=== PATIENT | female | born 1945 | race Caucasian/White ===

== ENCOUNTER → 2017-10-21 | Outpatient (CLI) | payer OTHER, MEDICARE ==
[~2017-10-21] MED LIST: AMLO-114 PO; ASPI1TAB83 PO; DICL50TA3 PO; FURO40TA3 PO; HYDR12.55 PO; IBUP-1050 PO; LISI40TA PO; MULTTAB58 PO; RANI150T85 PO; SIMV40TA2 PO; ULT50 PO; ZNF/4 PO
--- NOTE | 2017-10-28 15:13 | MAMMOGRAPHY REPORT ---
BILATERAL DIGITAL SCREENING MAMMOGRAM TOMOSYNTHESIS WITH CAD: 10/21/2017 CLINICAL HISTORY: Routine screening. Patient has no complaints. TECHNIQUE: Breast tomosynthesis in addition to standard 2D mammography was performed. Current study was also evaluated with a Computer Aided Detection (CAD) system. COMPARISON: Comparison is made to exam dated: 03/15/2012 mammogram - [facility]. BREAST COMPOSITION: There are scattered areas of fibroglandular density in both breasts. FINDINGS: There are grouped calcifications within the left upper outer quadrant, as well as a small c luster of calcifications within the right upper outer quadrant, for which spot magnification views ar e recommended for further evaluation. There is an oval 8 mm mass within the right upper outer quadra nt middle depth, which may represent a cyst although targeted ultrasound and possible spot compressio n tomosynthesis views are recommended for further evaluation. The remainder of both breasts are stable compared to prior exams, without suspicious masses, calcific ations, or areas of architectural distortion noted. Other bilateral nodularity is not significantly changed. Other scattered bilateral benign-appearing calcifications are noted. IMPRESSION: ACR BI-RADS CATEGORY 0: INCOMPLETE EVALUATION: NEED ADDITIONAL IMAGING EVALUATION Bilateral calcifications and right breast mass, for which additional imaging evaluation is recommende d. The patient will be called to schedule an appointment. Approximately 10% of breast cancers are not detected with mammography. A negative mammographic report should not delay biopsy if a clinically suggestive mass is present. Julia Blackman M.D. ah/:10/28/2017 08:00:07 Storeperson: Shaneka MUNOZ)(Nathanael), [facility] letter sent: Addl Imaging 0 BI-RADS Code: ACR BI-RADS Category 0: Incomplete Evaluation: Need Additional Imaging Evaluation
== END | disposition home or self-care (01) ==
LOC: C.MAMM 10:43
PROVIDERS: ATTEND Family Medicine
DX: Z12.31 Encounter for screening mammogram for malignant neoplasm of breast (principal); R92.1 Mammographic calcification found on diagnostic imaging of breast

== ENCOUNTER → 2018-01-03 | Outpatient (CLI) | payer OTHER, MEDICARE ==
[~2018-01-03] MED LIST changes: -AMLO-114 PO; +AMLO10TA3 PO; +CALC500C70 PO; +CRAN405C3 PO; -DICL50TA3 PO; -HYDR12.55 PO; +LEVE250T PO; +METO25TA56 PO; +TYLER650 PO; +VLT/50 PO; +VNTHFA/IN INH
[2018-01-03 12:56] LABS: BASO % 0.1 %; BASO ABS # 0.01 K/uL (0-0.2); EOS % 1.1 %; EOS ABS # 0.08 K/uL (0-0.5); HEMOGLOBIN 13.7 g/dL (12.0-16.0); IG# 0.01 K/uL (0.00-0.02); LYMPH % 32.2 %; LYMPH ABS # 2.39 K/uL (1.2-3.4); MEAN CELL VOLUME 97.1 fL (80-100); MEAN CORPUSCULAR HEMOGLOBIN 30.9 pg (25-34); MEAN CORPUSCULAR HGB CONC 31.9 g/dl (32-36); MEAN PLATELET VOLUME 11.5 fL (7.4-10.4); MONO % 6.3 %; MONO ABS # 0.47 K/uL (0.11-0.59); NEUT % 60.2 %; NEUT ABS # 4.47 K/uL (1.4-6.5); PLATELET COUNT 139 K/uL (130-400); RED CELL DISTRIBUTION WIDTH CV 13.5 % (11.5-14.5); WHITE BLOOD COUNT 7.43 K/uL (4.8-10.8)
[2018-01-03 14:21] LABS: ALBUMIN 3.4 gm/dl (3.4-5.0); ALKALINE PHOSPHATASE 84 U/L (45-117); ALT/SGPT 24 U/L (12-78); AST/SGOT 13 U/L (15-37); BLOOD UREA NITROGEN 38 mg/dl (7-18); CALCIUM 8.8 mg/dl (8.5-10.1); CARBON DIOXIDE 27 mmol/L (21-32); CREATININE 1.14 mg/dl (0.60-1.20); GLUCOSE 89 mg/dl (70-99); POTASSIUM 4.3 mmol/L (3.5-5.1); SODIUM 145 mmol/L (136-145); TOTAL PROTEIN 6.5 gm/dl (6.4-8.2)
== END | disposition home or self-care (01) ==
LOC: C.CPL 11:14
PROVIDERS: ATTEND Surgery
DX: Z01.810 Encounter for preprocedural cardiovascular examination (principal); Z01.812 Encounter for preprocedural laboratory examination

== ENCOUNTER 2018-10-06 14:11 | Inpatient (IN) ==
--- NOTE | 2018-10-06 16:57 | Emergency Department Note ---
History of Present Illness General Chief complaint: Leg Injury/Pain Stated complaint: LEG PAIN,RED AND SWELLING Time Seen by Provider: 10/06/18 15:50 History of Present Illness Maximum Pain Intensity: 5 Patient is a 73-year-old female who presents the emergency department accompanied by her daughter for evaluation of left lower extremity pain, redness and some started 2 days ago. Patient states that she woke up with pain, redness and swelling in her medial left calf on Tuesday morning. It has progressively gotten more painful, red and swollen over the next 2 days. She is able to bear weight with her walker, but it is uncomfortable. Pain gets worse as the day goes on. She has tried to elevate the leg and take Tylenol for pain. She rates her discomfort a 5/10. She denies any fever, chills, nausea, vomiting or malaise. Patient states that she developed a blister on the medial left lower leg this afternoon, and several have popped up on the anterior bridges as well. She try to call her primary care provider but she was referred to the emergency department for work-up. She denies a prior history of skin infections, abscess or cellulitis. She does have a history of a right lower extremity DVT, when she was in a cast being treated for an ankle fracture. She does have some chronic lower extremity edema, right worse than left. She does also report that her legs are "numb" from the knees down secondary to spinal stenosis and her spinal surgery. She is not aware of any injury to the left leg. Home Medications Home Medications Medication Instructions Recorded Confirmed Type aspirin [Aspir-81] 81 mg PO QAM #0 02/14/14 10/06/18 History lisinopril 40 mg PO QAM #0 tab 02/14/14 10/06/18 History multivitamin 1 cap PO QAM #0 tab 02/14/14 10/06/18 History ranitidine HCl 150 mg PO QAM #0 tab 02/14/14 10/06/18 History simvastatin 40 mg PO HS #0 tab 02/14/14 10/06/18 History tizanidine 4 mg PO HS #0 02/14/14 10/06/18 History tramadol 50 mg PO Q6H PRN #0 02/14/14 10/06/18 History albuterol sulfate 2 puffs INHALATION Q6H PRN #1 12/28/17 10/06/18 History inhaler calcium carbonate-vitamin D3 1 tab PO BID #0 tab 12/28/17 10/06/18 History [Calcium 500 + D] diclofenac sodium 75 mg PO BID #0 tab 12/28/17 10/06/18 History metoprolol tartrate 25 mg PO BID #0 tab 12/28/17 10/06/18 History furosemide 40 mg tablet 40 mg PO QAM #0 tab 04/17/18 10/06/18 History acetaminophen [Tylenol Arthritis 650 mg PO Q4H 10/06/18 10/06/18 History Pain] Allergies Allergy/AdvReac Type Severity Reaction Status Date / Time cephalexin Allergy Unknown HIVES Verified 10/06/18 16:18 strawberry Allergy Unknown hives Verified 10/06/18 16:18 Unclassified Drugs Allergy Unknown DIAL SOAP Uncoded 10/06/18 16:18 - RASH Past Med/Surg History Medical History Peripheral neuropathy (Chronic) Atrial fibrillation (Chronic) Hyperlipidemia (Chronic) Hypertension (Chronic) Seizure (Resolved) sz first episode 2014, discovered brain tumor; additional sz S/P BRAIN TUMOR REMOVAL IN 2017; now with NO SENSE OF SMELL, NO OTHER COMPLICATIONS. Stress incontinence in female (Chronic) Osteoarthritis (Chronic) History of DVT (deep vein thrombosis) (Resolved) 20+ YEARS AGO AFTER ANKLE FX GERD (gastroesophageal reflux disease) (Chronic) Spinal stenosis (Resolved) with neuropathy Breast cancer (Resolved) new dx History of benign brain tumor (Resolved) s/p removal 2016 Raynauds disease (Chronic) COPD (chronic obstructive pulmonary disease) (Chronic) Ductal carcinoma in situ (DCIS) of left breast (Resolved) Abnormal left breast mammogram Status post core needle biopsy December 07, 2017 Intraductal carcinoma, grade 3 Estrogen receptor negative and progesterone receptor negative Status post lumpectomy 02/23/2018 Stage pTis pNX Status post completion of radiation therapy May 12, 2018. She received 5130 cGy. Lumbar spinal stenosis (Resolved 02/14/14) Surgical History History of craniotomy (Resolved) HX OF BENIGN TUMOR REMOVAL IN 2017 History of laminectomy (Resolved) LUMBAR History of total knee replacement (Resolved) BILATERAL History of total shoulder replacement (Resolved) RIGHT History of ankle fusion (Resolved) RIGHT History of lumpectomy of left breast (Resolved) Family History Mother , Passed age 62 of [place] No problems noted. Father , Passed age 68 of accident (fell down steps) No problems noted. Brother No problems noted. Brother No problems noted. Sister Breast cancer Twin - Left Breast - Lumpectomy/Chemo/RXT Sister No problems noted. Sister No problems noted. Sister No problems noted. Sister No problems noted. Son Sarcoidosis Son No problems noted. Daughter No problems noted. 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 Second Hand Exposure: No Hx Alcohol Use: No Hx Substance Use: No caffeine: No Review of Systems A total of 10 systems reviewed and were otherwise negative Physical Exam Vital Signs Vital Signs - 24 hr 10/06/18 14:46 10/06/18 16:25 10/06/18 17:52 Temperature 36.8 C Temperature Source Oral Sepsis Recent Fever Within 48 Hours No Sepsis New/Unexplained Change in Mental Status No Sepsis Action Taken by Nursing No Action Required Pulse Rate 76 Pulse Rate [Finger] 71 74 Pulse Rhythm [Finger] Regular Regular Pulse Strength [Finger] Normal Normal Respiratory Rate 18 18 18 Respiratory Effort / Characteristics Non-Labored Spontaneous Non-Labored Spontaneous Respiratory Depth Normal Normal Respiratory Pattern Regular Regular Blood Pressure 167/87 H Blood Pressure [Right Arm] 180/87 H 163/70 H Blood Pressure Mean 113 Blood Pressure Mean [Right Arm] 118 101 Blood Pressure Position Sitting Blood Pressure Position [Right Arm] Lying Lying Pulse Oximetry 97 98 96 Oxygen Delivery Method Room Air Room Air Room Air 10/06/18 19:36 Temperature Temperature Source Sepsis Recent Fever Within 48 Hours Sepsis New/Unexplained Change in Mental Status Sepsis Action Taken by Nursing Pulse Rate Pulse Rate [Finger] 77 Pulse Rhythm [Finger] Pulse Strength [Finger] Respiratory Rate 18 Respiratory Effort / Characteristics Respiratory Depth Respiratory Pattern Blood Pressure Blood Pressure [Right Arm] Blood Pressure Mean Blood Pressure Mean [Right Arm] Blood Pressure Position Blood Pressure Position [Right Arm] Pulse Oximetry 97 Oxygen Delivery Method Room Air PHYSICAL EXAM: Vital Signs: Reviewed Nurse's notes. CONSTITUTIONAL: Patient is a well-appearing 73-year-old female who is awake and alert and in no acute distress. Vital signs are stable. HEART: Irregular rate and rhythm. No murmur appreciated. LUNGS: Clear to auscultation and breath sounds equal. EXTREMITIES: Examination of the left lower extremity note multiple well-healed knee surgical scars. The left lower leg, distal to the knee to the ankle is circumferentially erythematous, swollen, warm to the touch and tender medially. There is a superficial ruptured blister medially, superior to the medial malleolus. There is a small scabbed over lesion on the anterior bridges. There are a few small tense blisters on the anterior bridges as well. The foot is swollen, but non-erythematous, and nontender. Knee and ankle range of motion are full. Distal pulses are easily palpable and capillary refill is less than 2 seconds. Sensation to light touch is diminished over the left lower extremity. Examination of the right lower extremity notes chronic edematous changes, and a very shallow superficial ulceration on the anterior bridges. The calf is soft and nontender. No erythema, increased warmth or induration. Course The patient was seen and assessed as above. Old records were reviewed. History and presentation were discussed with Dr. Mckeon who independently evaluated the patient and agreed with the ED work-up. IV lock was initiated. Laboratory studies were collected. CBC with differential, BMP, blood cultures x2 and [id number] lactic acid were drawn. Ultrasound of the left lower extremity was performed. Laboratory studies noted a white count of 11,300. H&H is normal. Chemistries are without significant abnormality. BUN and creatinine 41 and 1.03. [id number] lactic acid is normal at 1.22. Left lower extremity ultrasound was negative for DVT. Laboratory and diagnostic imaging studies were discussed with Dr. Mckeon. The patient was treated with vancomycin 2 g IV and Zosyn 4.5 g IV for the left lower extremity cellulitis. The patient was reassessed by myself and made aware of the results of her laboratory and diagnostic imaging studies. Her leg was reexamined, and the erythema does appear to be extending proximally just since she has been here, the entire medial left knee is now involved. The cellulitis involves greater than 50% of the left lower extremity. Patient was discussed with information assurance manager for admission/observation for left lower extremity cellul itis. [facility] was consulted. Administered Medications Vancomycin HCl 2,000 mg/ (Sodium Chloride) 540 mls @ 200 mls/hr IV NOW ONE Stop: 10/06/18 20:26 Last Admin: 10/06/18 18:34 Dose: 200 mls/hr Documented by: [id number] Discontinued Medications Piperacillin Sod/Tazobactam Sod (Zosyn) 4.5 gm in 120 mls @ 240 mls/hr IV NOW ONE Stop: 10/06/18 18:14 Last Infusion: 10/06/18 18:22 Dose: 0 mls/hr Documented by: [id number] Admin: 10/06/18 17:52 Dose: 240 mls/hr Documented by: [id number] Medical Decision Making Differential Diagnosis Differential diagnoses include cellulitis, necrotizing fasciitis, DVT, superficial thrombophlebitis, lymphedema, peripheral edema, among others. Medical Records Attestation: I reviewed the patient's medical records. Home Medications Current Medication List: was personally reviewed by me Laboratory Data Attestation: I reviewed the patient's lab results. Result diagrams: 10/06/18 16:34 10/06/18 16:34 Lab Results 10/06/18 10/06/18 10/06/18 Range/Units 16:34 16:34 16:51 WBC 11.32 H (4.8-10.8) K/uL RBC 3.89 L (4.2-5.4) M/uL Hgb 12.5 (12.0-16.0) g/dL Hct 38.2 (37-47) % MCV 98.2 (80-100) fL MCH 32.1 (25-34) pg MCHC 32.7 (32-36) g/dL RDW Std Deviation 50.5 H (36.4-46.3) fL RDW Coeff of Tatyana 14.1 (11.5-14.5) % Plt Count 180 (130-400) K/uL MPV 10.9 H (7.4-10.4) fL Immature Gran % (Auto) 0.2 % Neut % (Auto) 69.9 % Lymph % (Auto) 19.3 % [place] % (Auto) 10.0 % Eos % (Auto) 0.5 % Baso % (Auto) 0.1 % Immature Gran # (Auto) 0.02 (0.00-0.02) K/uL Neut # (Auto) 7.91 H (1.4-6.5) K/uL Lymph # (Auto) 2.19 (1.2-3.4) K/uL [place] # (Auto) 1.13 H (0.11-0.59) K/uL Eos # (Auto) 0.06 (0-0.5) K/uL Baso # (Auto) 0.01 (0-0.2) K/uL Sodium 144 (136-145) mmol/L Potassium 3.8 (3.5-5.1) mmol/L Chloride 111 H (98-107) mmol/L Carbon Dioxide 25 (21-32) mmol/L Anion Gap 8.0 (3-11) BUN 41 H (7-18) mg/dl Creatinine 1.03 (0.6-1.2) mg/dl Est Cr Clr Drug Dosing 60.1 ml/min Est GFR ( Amer) 62.9 Est GFR (Non-Af Amer) 54.3 BUN/Creatinine Ratio 40.2 H (10-20) Glucose 96 (70-99) mg/dl POC Lactic Acid Daniel 1.22 (0.90-1.70) mmol/L Calcium 9.7 (8.5-10.1) mg/dl Imaging Data Attestation: I personally reviewed and interpreted this imaging study as follows: Radiologist's Impression: US venous doppler LE LT HISTORY: 73 years-old Female DVT VS CELLULITIS LLE acute pain and swelling of the left lower leg COMPARISON: None available TECHNIQUE: Multiple real-time sonographic images of the left lower extremity deep venous structures were obtained assessing grayscale appearance, color and spectral flow FINDINGS: Normal flow, compressibility, phasicity and augmentation of the left lower extremity deep venous structures. There is moderate subcutaneous edema about the calf. IMPRESSION: No sonographic evidence of deep venous thrombosis. Blood Pressure Blood Pressure Findings: Elevated blood pressure Blood Pressure Disposition: further management by hospitalist ADALBERTO Narrative See ED Course. Impression & Plan Cellulitis of left lower extremity Discharge Plan Visit Data Chief Complaint: Leg Injury/Pain Stated Complaint: LEG PAIN,RED AND SWELLING ED Provider: Katerin Mckeon ED Midlevel Provider: Rosanna Cosme Discharge Problem: Cellulitis of left lower extremity Patient Disposition: Being Evaluated by Hospitalist Forms Stand Alone Forms: [facility] Prescriptions Prescriptions: No Action aspirin [Aspir-81] 81 mg Tablet,Delayed Release (Dr/Ec) 81 mg PO QAM Qty: 0 RF: 0 tramadol 50 mg Tablet 50 mg PO Q6H PRN (Reason: Pain) Qty: 0 RF: 0 simvastatin 40 mg Tablet 40 mg PO HS Qty: 0 RF: 0 ranitidine HCl 150 mg Capsule 150 mg PO QAM Qty: 0 RF: 0 lisinopril 40 mg Tablet 40 mg PO QAM Qty: 0 RF: 0 multivitamin Capsule 1 cap PO QAM Qty: 0 RF: 0 tizanidine 4 mg Capsule 4 mg PO HS Qty: 0 RF: 0 diclofenac sodium 75 mg Tablet,Delayed Release (Dr/Ec) 75 mg PO BID Qty: 0 RF: 0 albuterol sulfate 90 mcg/actuation Hfa Aerosol Inhaler 2 puffs INHALATION Q6H PRN (Reason: Wheezing) Qty: 1 RF: 0 metoprolol tartrate 25 mg Tablet 25 mg PO BID Qty: 0 RF: 0 calcium carbonate-vitamin D3 [Calcium 500 + D] 500 mg(1,250mg) -200 unit Tablet 1 tab PO BID Qty: 0 RF: 0 furosemide 40 mg tablet 40 mg PO QAM Qty: 0 RF: 0 acetaminophen [Tylenol Arthritis Pain] 650 mg Tablet Extended Release 650 mg PO Q4H RF: 0 Referrals Referrals: Beatrice Mercado DO [Primary Care Provider] -
[2018-10-06 17:01] LABS: Basophils # (auto) 0.01 K/uL (0-0.2); Basophils % (auto) 0.1 %; Eosinophils # (auto) 0.06 K/uL (0-0.5); Eosinophils % (auto) 0.5 %; Hematocrit (blood only) 38.2 % (37-47); Hemoglobin 12.5 g/dL (12.0-16.0); Immature Granulocytes # (auto) 0.02 K/uL (0.00-0.02); Immature Granulocytes % (auto) 0.2 %; Lymphocytes # (auto) 2.19 K/uL (1.2-3.4); Lymphocytes % (auto) 19.3 %; Mean Corpuscular Hgb Conc 32.7 g/dL (32-36); Mean Corpuscular Volume 98.2 fL (80-100); Mean Platelet Volume 10.9 fL (7.4-10.4); Monocytes # (auto) 1.13 K/uL (0.11-0.59); Neutrophils # (auto) 7.91 K/uL (1.4-6.5); Neutrophils % (auto) 69.9 %; Platelet Count 180 K/uL (130-400); RDW Coefficient of Variation 14.1 % (11.5-14.5); RDW Standard Deviation 50.5 fL (36.4-46.3); Red Blood Count 3.89 M/uL (4.2-5.4); White Blood Count 11.32 K/uL (4.8-10.8)
[2018-10-06 17:20] LABS: BUN Creatinine Ratio 40.2 (10-20); Calcium 9.7 mg/dl (8.5-10.1); Creatinine Clr Calc Pharmacy 60.1 ml/min; Est GFR (African American) 62.9; Est GFR (Non-African American) 54.3; Potassium 3.8 mmol/L (3.5-5.1)
--- NOTE | 2018-10-06 17:34 | Ultrasound Report ---
US venous doppler LE LT HISTORY: 73 years-old Female DVT VS CELLULITIS LLE acute pain and swelling of the left lower leg COMPARISON: None available TECHNIQUE: Multiple real-time sonographic images of the left lower extremity deep venous structures w ere obtained assessing grayscale appearance, color and spectral flow FINDINGS: Normal flow, compressibility, phasicity and augmentation of the left lower extremity deep venous stru ctures. There is moderate subcutaneous edema about the calf. IMPRESSION: No sonographic evidence of deep venous thrombosis. The above report was generated using voice recognition software. It may contain grammatical, syntax o r spelling errors. Electronically signed by: Liam Valadez M.D. 10/06/2018 5:32 PM
[2018-10-06] MEDS ORDERED: VANCOMYCIN CONSULT ACTIVE PRN ×2 (17:45→21:12)
[2018-10-06] MEDS ORDERED: PIPERACILL/TAZOBAC CONSULT ACTIVE PRN (17:45)
[2018-10-06] MEDS ORDERED: PIPERACILLIN/TAZOBACTAM 4.5 GM/120 ML BAG IV ONE (17:45)
[2018-10-06] MEDS ORDERED: VANCOMYCIN HCL 2,000 MG in SODIUM CHLORIDE 0.9% 500 ML IV ONE (17:45)
[2018-10-06] MEDS ORDERED: ACETAMINOPHEN 500 MG TAB PO STA (19:47)
--- NOTE | 2018-10-06 19:50 | History & Physical Report ---
Date of Service October 06, 2018 Assessment & Plan (1) Cellulitis of left lower extremity: 73 y/o F Hx PAF, HTN, HLD, seizure disorder, spinal stenosis with chronic lower extremity lymphedema, numbness and an unsteady gait. Presents with progressive pain, erythema and swelling of the LLE possibly following minor trauma. She denies fevers or rigors. 1) Cellulitis - extensive over LLE - placed on Doxy and Vanc - area delineated 2) PAF - sinus on admission - is not anticoagulated due to fall risk and possibly prior meningioma. Cont Metoprolol. 3) Lymphedema - severe, cont Lasix - elevate legs 4) HTN, HLD - cont Metoprolol, Lisinopril, Zocor 5) Spinal stenosis and impaired gait - PT/OT Full code, Heparin prophylaxis Total time for this admit including review of labs, meds, imaging, records - discussion with pt and ER attending - 40 min History of Present Illness Primary Care Provider: Beatrice Mercado, DO 73 y/o F Hx PAF, HTN, HLD, seizure disorder, spinal stenosis with chronic lower extremity lymphedema, numbness and an unsteady gait. Presents with progressive pain, erythema and swelling of the LLE possibly following minor trauma. She denies fevers or rigors. PMH: 1) Paroxysmal atrial fibrillation - no anticoagulation due to fall risk 2) HTN 3) HLD 4) Spinal stenosis with LE numbness and gait dysfunction 5) DCIS - limpectomy 6) Distant history of DVT 7) Meningioma - excision 8) Seizure disorder - led to diagnosis of a meningioma 9) Raynauds Surgical: 1) Excision of a meningioma 2016 2) Breast lumpectomy 2016 3) L2 laminectomy Social: Quit smoking in the 1970s, does not drink, lives with daughter. Mobilizes with a walker and wheelchair. Family: Noncontributory Allergies Allergy/AdvReac Type Severity Reaction Status Date / Time cephalexin Allergy Unknown HIVES Verified 10/06/18 16:18 strawberry Allergy Unknown hives Verified 10/06/18 16:18 Unclassified Drugs Allergy Unknown DIAL SOAP Uncoded 10/06/18 16:18 - RASH Home Medications Home Medications Medication Instructions Recorded Confirmed Type aspirin [Aspir-81] 81 mg PO QAM #0 02/14/14 10/06/18 History lisinopril 40 mg PO QAM #0 tab 02/14/14 10/06/18 History multivitamin 1 cap PO QAM #0 tab 02/14/14 10/06/18 History ranitidine HCl 150 mg PO QAM #0 tab 02/14/14 10/06/18 History simvastatin 40 mg PO HS #0 tab 02/14/14 10/06/18 History tizanidine 4 mg PO HS #0 02/14/14 10/06/18 History tramadol 50 mg PO Q6H PRN #0 02/14/14 10/06/18 History albuterol sulfate 2 puffs INHALATION Q6H PRN #1 12/28/17 10/06/18 History inhaler calcium carbonate-vitamin D3 1 tab PO BID #0 tab 12/28/17 10/06/18 History [Calcium 500 + D] diclofenac sodium 75 mg PO BID #0 tab 12/28/17 10/06/18 History metoprolol tartrate 25 mg PO BID #0 tab 12/28/17 10/06/18 History furosemide 40 mg tablet 40 mg PO QAM #0 tab 04/17/18 10/06/18 History acetaminophen [Tylenol Arthritis 650 mg PO Q4H 10/06/18 10/06/18 History Pain] Past Med/Surg History Medical History Peripheral neuropathy (Chronic) Atrial fibrillation (Chronic) Hyperlipidemia (Chronic) Hypertension (Chronic) Seizure (Resolved) sz first episode 2014, discovered brain tumor; additional sz S/P BRAIN TUMOR REMOVAL IN 2017; now with NO SENSE OF SMELL, NO OTHER COMPLICATIONS. Stress incontinence in female (Chronic) Osteoarthritis (Chronic) History of DVT (deep vein thrombosis) (Resolved) 20+ YEARS AGO AFTER ANKLE FX GERD (gastroesophageal reflux disease) (Chronic) Spinal stenosis (Resolved) with neuropathy Breast cancer (Resolved) new dx History of benign brain tumor (Resolved) s/p removal 2017 Raynauds disease (Chronic) COPD (chronic obstructive pulmonary disease) (Chronic) Ductal carcinoma in situ (DCIS) of left breast (Resolved) Abnormal left breast mammogram Status post core needle biopsy December 07, 2017 Intraductal carcinoma, grade 3 Estrogen receptor negative and progesterone receptor negative Status post lumpectomy 02/23/2018 Stage pTis pNX Status post completion of radiation therapy May 12, 2018. She received 5130 cGy. Lumbar spinal stenosis (Resolved 02/14/14) Surgical History History of craniotomy (Resolved) HX OF BENIGN TUMOR REMOVAL IN 2017 History of laminectomy (Resolved) LUMBAR History of total knee replacement (Resolved) BILATERAL History of total shoulder replacement (Resolved) RIGHT History of ankle fusion (Resolved) RIGHT History of lumpectomy of left breast (Resolved) Family History Mother , Passed age 62 of [place] No problems noted. Father , Passed age 68 of accident (fell down steps) No problems noted. Brother No problems noted. Brother No problems noted. Sister Breast cancer Twin - Left Breast - Lumpectomy/Chemo/RXT Sister No problems noted. Sister No problems noted. Sister No problems noted. Sister No problems noted. Son Sarcoidosis Son No problems noted. Daughter No problems noted. 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 Second Hand Exposure: No Hx Alcohol Use: No Hx Substance Use: No caffeine: No Review of Systems Review of Systems: Gen: Denies fevers, night sweats, rigors, fatigue, malaise, weight loss/gain ENT: Denies congestion, throat pain, hearing loss Eyes: Denies acute visual changes CV: Denies CP, palpitations Pulmonary: Denies SOB, cough, wheezing GI: Denies N/V, diarrhea, constipation Neuro: Denies acute or unilateral weakness, acute gait impairment, headache or acute visual changes - she does not have sensation below the knees BL Musculoskeletal: Chronic LE edema - pain in LLE above knee Endocrine: Denies polydipsia, polyuria Skin: Denies acute rashe or ulcers Physical Exam Physical Exam: General: AAO x 3, no distress ENT: No erythema or exudates, no thrush Eyes: SAMINA, EOMI Head and neck: Normocephalic, atraumatic, No JVD, neck is supple. Chest/heart: Nontender, S1,2, RRR, no murmurs, no gallops Lungs: CTAB, no wheezing or crackles Abdomen: Nontender, nondistended, BS+ Neuro: AAO x 3, speech is clear, no unilateral weakness or loss of sensation, coordination intact Musculoskeletal: No joint or muscle tenderness Skin: No acute rashes or ulcers - erythema and warmth of the LLE from the foot to mid thigh Extremities: No clubbing, cyanosis - impressive BL lymphedema Results & Data Vital Signs (Past 12 Hours) Vital Signs Temp Pulse Pulse Resp BP BP Pulse Ox 10/06/18 17:52 74 18 163/70 H 96 10/06/18 16:25 71 18 180/87 H 98 10/06/18 14:46 98.2 F 76 18 167/87 H 97
[2018-10-06] MEDS ORDERED: TRAMADOL HCL 50 MG TABLET PO PRN (21:12)
[2018-10-06] MEDS ORDERED: ALUMINUM/MAGNESIUM SUSP 30 ML UDC PO PRN (21:12)
[2018-10-06] MEDS ORDERED: ALBUTEROL HFA 8 GM INHALER INH PRN (21:12)
[2018-10-06] MEDS ORDERED: ONDANSETRON INJ 2 MG/ML 2 ML VIAL IV PRN (21:12)
[2018-10-06] MEDS ORDERED: POLYETHYLENE (MIRALAX) 17 GM PACK PO PRN (21:12)
[2018-10-06] MEDS ORDERED: MAGNESIUM HYDROXIDE SUSP 30 ML UDC PO PRN (21:12)
[2018-10-06] MEDS ORDERED: NON-FORMULARY MEDICATION (Acetaminophen [Tylenol Arthritis Pain] 650 MG) PO SCH (21:12)
[2018-10-06] MEDS: METOPROLOL TARTRATE 25 MG TAB PO SCH (22:30)
[2018-10-06] MEDS: SIMVASTATIN 40 MG TAB PO SCH (22:31)
[2018-10-06] MEDS: DICLOFENAC SODIUM 75 MG TABCR PO SCH (22:32)
[2018-10-06] MEDS: TIZANIDINE HCL 4 MG TABLET PO SCH (22:32)
[2018-10-06 22:39] LABS: Partial Thromboplastin Time 26.9 Seconds (21.0-31.0)
[2018-10-06] MEDS: DOXYCYCLINE HYCLATE 100 MG in DEXTROSE 5% 100 ML IV SCH (23:31)
[2018-10-07] MEDS: ACETAMINOPHEN 325 MG TAB PO PRN ×4 (00:54→21:12)
[2018-10-07] MEDS: VANCOMYCIN HCL 1,500 MG in SODIUM CHLORIDE 0.9% 500 ML IV SCH ×2 (05:30→21:14)
[2018-10-07] MEDS: HEPARIN SOD 5,000 UNIT/0.5 ML VIAL SQ SCH ×3 (05:31→21:14)
[2018-10-07] MEDS: DICLOFENAC SODIUM 75 MG TABCR PO SCH ×2 (09:05→21:14)
[2018-10-07] MEDS: LISINOPRIL 40 MG TAB PO SCH (09:05)
[2018-10-07] MEDS: FUROSEMIDE 40 MG TAB PO SCH (09:06)
[2018-10-07] MEDS: ASPIRIN 81 MG ECTAB PO SCH (09:06)
[2018-10-07] MEDS: METOPROLOL TARTRATE 25 MG TAB PO SCH ×2 (09:06→21:13)
[2018-10-07] MEDS: DOXYCYCLINE HYCLATE 100 MG in DEXTROSE 5% 100 ML IV SCH ×2 (09:13→22:08)
--- NOTE | 2018-10-07 14:11 | Pharmacy Report ---
Pharmacy Abx Initial Consult - Date of Service October 07, 2018 - Pharmacy Dosing Scope Date of Consult: 10/06/18 Consultation requested by: Dr. Melchor Pharmacy is consulted to initiate Vancomycin IV dosing therapy, order appropriate labs and adjust drug dose/frequency. - Subjective The patient is a 73 year old F admitted on 10/06/18 20:13. - Objective Height: 5 ft 8 in Weight: 102.2 kg Vital Signs (Past 12hrs): Vital Signs Temp Pulse Resp BP Pulse Ox 10/07/18 12:09 36.8 C 73 18 130/70 95 10/07/18 07:21 36.4 C L 69 20 112/74 95 10/07/18 04:24 36.6 C 64 20 106/70 95 Lab Results (24hrs): Laboratory Tests (24 Hours) 10/06/18 10/06/18 16:34 16:34 WBC 11.32 H Neut # (Auto) 7.91 H Creatinine 1.03 Est Cr Clr Drug Dosing 60.1 Micro Results: 10/06/18 16:58 Blood Culture - Pending Blood 10/06/18 16:34 Blood Culture - Pending Blood - Assessment & Plan Assessment * 73 year old F with LLE cellulitis and chronic lower extremity lymphedema. * Patient is also allergic to Keflex with reaction = hives. * Blood cultures obtained and results pending. Plan Vancomycin for treatment of lower extremity cellulitis. Vancomycin IV * Estimated PK Parameters: Vd 0.7 L/kg, Anoop 0.054 hr-1, t1/2 12.8 hr * Loading dose: Vancomycin 2000 mg (20.6 mg/kg) given in the ED yesterday ~ 1800. * Maintenance dose: Vancomycin 1500 mg IV (15.5 mg/kg) every 16 hours started at 0600. * Goal trough level for LLE cellulitis: 15 to 20 mcg/mL * Trough Vanco level ordered for 10/08/18 before dose at 1400 (before the 3rd maintenance dose). Pharmacy will continue to follow and will adjust dose/frequency as necessary. Thank you.
--- NOTE | 2018-10-07 17:58 | Hospitalist Progress Note ---
Date of Service October 07, 2018 Assessment & Plan (1) Cellulitis of left lower extremity: 73 y/o F Hx PAF, HTN, HLD, seizure disorder, spinal stenosis with chronic lower extremity lymphedema, numbness and an unsteady gait. Presents with progressive pain, erythema and swelling of the LLE possibly following minor trauma. She denies fevers or rigors. 1) Cellulitis - extensive over LLE - placed on Doxy and Vanc - area delineated. Erythema appears to be receding Will continue with current antibiotics at this time. 2) PAF - sinus on admission - is not anticoagulated due to fall risk and possibly prior meningioma. Cont Metoprolol. 3) Lymphedema - severe, cont Lasix - elevate legs 4) HTN, HLD - cont Metoprolol, Lisinopril, Zocor 5) Spinal stenosis and impaired gait - PT/OT Full code, Heparin prophylaxis Spent 25 minutes in management of patient. Subjective This is a pleasant 78 yo female who reports having pain in her left lower leg. She reports that pain is dull, and located in the medial aspect of the middle third of her left lower leg. Patient reports that when she walks it is worse. Patient currently denies any fever chills nausea vomiting. Review of Systems Review of Systems: All systems reviewed & are unremarkable except as noted in HPI & below Physical Exam Physical Exam: General: AAO x 3, no distress ENT: No erythema or exudates, no thrush Eyes: SAMINA, EOMI Head and neck: Normocephalic, atraumatic, No JVD, neck is supple. Chest/heart: Nontender, S1,2, RRR, no murmurs, no gallops Lungs: CTAB, no wheezing or crackles Abdomen: Nontender, nondistended, BS+ Neuro: AAO x 3, speech is clear, no unilateral weakness or loss of sensation, coordination intact Musculoskeletal: No joint or muscle tenderness Skin: No acute rashes or ulcers - erythema and warmth of the LLE from the foot to mid thigh. Erythema appears to be mildly receding.. Extremities: No clubbing, cyanosis - impressive BL lymphedema Results & Data Vital Signs (Past 12 Hours) Vital Signs Temp Pulse Resp BP Pulse Ox 10/07/18 15:09 36.5 C 65 20 138/80 96 10/07/18 12:09 36.8 C 73 18 130/70 95 04/27/19 07:21 36.4 C L 69 20 112/74 95
[2018-10-07] MEDS: SIMVASTATIN 40 MG TAB PO SCH (21:13)
[2018-10-07] MEDS: TIZANIDINE HCL 4 MG TABLET PO SCH (21:13)
[2018-10-08] MEDS: HEPARIN SOD 5,000 UNIT/0.5 ML VIAL SQ SCH ×3 (06:24→22:04)
[2018-10-08 07:05] LABS: Creatinine Clr Calc Pharmacy 80.8 ml/min; Est GFR (African American) 86.7; Est GFR (Non-African American) 74.8
[2018-10-08] MEDS: LISINOPRIL 40 MG TAB PO SCH (09:30)
[2018-10-08] MEDS: DICLOFENAC SODIUM 75 MG TABCR PO SCH ×2 (09:30→20:35)
[2018-10-08] MEDS: ASPIRIN 81 MG ECTAB PO SCH (09:31)
[2018-10-08] MEDS: FUROSEMIDE 40 MG TAB PO SCH (09:31)
[2018-10-08] MEDS: METOPROLOL TARTRATE 25 MG TAB PO SCH ×2 (09:31→20:35)
[2018-10-08] MEDS: DOXYCYCLINE HYCLATE 100 MG in DEXTROSE 5% 100 ML IV SCH ×2 (09:33→22:03)
--- NOTE | 2018-10-08 12:27 | Hospitalist Progress Note ---
Date of Service October 08, 2018 Assessment & Plan (1) Cellulitis of left lower extremity: 73 y/o F Hx PAF, HTN, HLD, seizure disorder, spinal stenosis with chronic lower extremity lymphedema, numbness and an unsteady gait. Presents with progressive pain, erythema and swelling of the LLE possibly following minor trauma. She denies fevers or rigors. 1) Cellulitis - extensive over LLE - placed on Doxy and Vanc - area delineated. Erythema contiues to showe improvement receding Will continue with current antibiotics at this time. May consider switching to PO in 24-48 hours. 2) PAF - sinus on admission - is not anticoagulated due to fall risk and possibly prior meningioma. Cont Metoprolol. 3) Lymphedema - severe, cont Lasix - elevate legs 4) HTN, HLD - cont Metoprolol, Lisinopril, Zocor 5) Spinal stenosis and impaired gait - PT/OT; Recommend placement. Full code, Heparin prophylaxis Spent 25 minutes in management of patient. Subjective Patient reports that she continues to have pain in her left calf but the pain is better controlled today. Patient notes that the erythema is also better. Review of Systems Review of Systems: All systems reviewed & are unremarkable except as noted in HPI & below Physical Exam Physical Exam: General: AAO x 3, no distress ENT: No erythema or exudates, no thrush Eyes: SAMINA, EOMI Head and neck: Normocephalic, atraumatic, No JVD, neck is supple. Chest/heart: Nontender, S1,2, RRR, no murmurs, no gallops Lungs: CTAB, no wheezing or crackles Abdomen: Nontender, nondistended, BS+ Neuro: AAO x 3, speech is clear, no unilateral weakness or loss of sensation, coordination intact Musculoskeletal: No joint or muscle tenderness Skin: No acute rashes or ulcers - erythema and warmth of the LLE from the foot to mid thigh. Erythema appears to be improved. Delineated erythema with a marker Extremities: No clubbing, cyanosis - impressive BL lymphedema Results & Data Vital Signs (Past 12 Hours) Vital Signs Temp Pulse Pulse Resp BP Pulse Ox 10/08/18 12:00 36.7 C 73 18 132/75 97 10/08/18 07:35 36.5 C 66 20 147/82 H 96 10/08/18 03:00 36.6 C 75 22 116/84 94
[2018-10-08] MEDS: ACETAMINOPHEN 325 MG TAB PO PRN ×2 (12:44→20:38)
[2018-10-08] MEDS ORDERED: VANCOMYCIN TROUGH ONE (13:30)
[2018-10-08] MEDS: VANCOMYCIN HCL 1,500 MG in SODIUM CHLORIDE 0.9% 500 ML IV SCH (14:20)
--- NOTE | 2018-10-08 15:14 | Pharmacy Report ---
Pharmacy Abx Dose Short Note - Date of Service October 08, 2018 - Assessment & Plan Assessment 73 year old F receiving Vancomycin for treatment of LLE cellulitis Day # 3 of antimicrobial therapy. Laboratory Tests 10/08/18 13:21 Vancomycin Trough 15.1 Plan Vancomycin * Trough level of 15.1 mcg/mL is therapeutic. * Trough was drawn after only 2 maintenance Vanco doses and therefore not at steady-state; I expect to be slightly higher with ongoing doses. Goal trough range is 15-20 mcg/ml; so it would be okay for trough level to rise slightly higher. * Continued Vancomycin 1500 mg IV q16h. * Will re-check trough in 2 days (on 10/10/18 before dose at 1400) to confirm patient is not accumulating Vancomycin. Pharmacy will continue to follow and will adjust dose/frequency as necessary. Thank you.
[2018-10-08] MEDS: SIMVASTATIN 40 MG TAB PO SCH (20:35)
[2018-10-08] MEDS: TIZANIDINE HCL 4 MG TABLET PO SCH (20:35)
[2018-10-09] MEDS: ACETAMINOPHEN 325 MG TAB PO PRN ×4 (01:45→21:43)
[2018-10-09] MEDS: VANCOMYCIN HCL 1,500 MG in SODIUM CHLORIDE 0.9% 500 ML IV SCH ×2 (06:09→21:45)
[2018-10-09] MEDS: HEPARIN SOD 5,000 UNIT/0.5 ML VIAL SQ SCH ×3 (06:10→21:44)
[2018-10-09 07:55] LABS: Creatinine Clr Calc Pharmacy 92.1 ml/min; Est GFR (African American) 100.3; Est GFR (Non-African American) 86.6
[2018-10-09] MEDS: METOPROLOL TARTRATE 25 MG TAB PO SCH ×2 (08:54→21:45)
[2018-10-09] MEDS: ASPIRIN 81 MG ECTAB PO SCH (08:55)
[2018-10-09] MEDS: DICLOFENAC SODIUM 75 MG TABCR PO SCH ×2 (08:55→21:44)
[2018-10-09] MEDS: LISINOPRIL 40 MG TAB PO SCH (08:55)
[2018-10-09] MEDS: FUROSEMIDE 40 MG TAB PO SCH (08:55)
[2018-10-09] MEDS: DOXYCYCLINE HYCLATE 100 MG in DEXTROSE 5% 100 ML IV SCH ×2 (09:00→21:45)
[2018-10-09] MEDS ORDERED: VANCOMYCIN TROUGH ONE (13:30)
[2018-10-09 14:35] LABS: Cdiff Antigen Negative; Cdiff Toxin A+B Negative Cdiff Toxin (Negative)
--- NOTE | 2018-10-09 15:33 | Hospitalist Progress Note ---
Date of Service October 09, 2018 Assessment & Plan (1) Cellulitis of left lower extremity: Extensive over LLE. - Placed on Doxy and Vanc - Erythema continues to show improvement - Continue vanc & doxy (2) Atrial fibrillation: Paroxsymal; sinus on admission. - Is not anticoagulated due to fall risk and possibly prior meningioma. - Cont metoprolol for rate control (3) Hypertension: BP has been normal to mildly elevated (160/80) in the last 48 hours. 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 - No inpatient needs (5) Lumbar spinal stenosis: - PT/OT; recommend placement (6) Lymphedema: Severe. - Continue Lasix & elevate legs (7) DVT prophylaxis: Heparin 5000 units BID Subjective Doing well this morning. Still having pain in the left leg, but improving. Reports no fevers/chills, chest pain, shortness of breath, abdominal pain, nausea, or vomiting. Review of Systems Integumentary: + erythema and + skin swelling Physical Exam Constitutional: WD/WN, vitals as above Eyes: EOM intact bilaterally; no conjunctival abnormality ENMT: external ear and nose normal, oropharynx normal Neck: trachea midline, no thyromegaly normal visual inspection Respiratory: normal respiratory effort, lungs clear to auscultation no respiratory distress Cardiovascular: RRR, no murmur, no edema Gastrointestinal (Abdomen): Inspection/Auscultation: abdomen normal to inspection; abdomen not distended Musculoskeletal: no cyanosis or clubbing, extremities motor strength 5/5 Skin: + erythema (Left thigh and calf.) Neurologic: moves all extremities and awake Psychiatric: Orientation: alert, oriented to person and cooperative Results & Data Vital Signs (Past 12 Hours) Vital Signs Temp Pulse Resp BP Pulse Ox 10/09/18 13:10 36.6 C 71 18 155/78 H 96 10/09/18 07:31 36.5 C 78 18 119/77 95
[2018-10-09] MEDS: SIMVASTATIN 40 MG TAB PO SCH (21:44)
[2018-10-09] MEDS: TIZANIDINE HCL 4 MG TABLET PO SCH (21:45)
--- OUTSIDE RECORDS SUMMARY | 2018-10-09 22:22 | External Medical Summary | Continuity of Care Document ---
:1945 Author Name Gina Little, Provider Address Unavailable Unavailable , Care Team Providers Name Role Phone Kel Little, Roney Trivedi Unavailable [email or web address] Unavailable Unavailable Unavailable Unavailable Unavailable Problems Arthritis (716.90) (M19.90) Seizures (780.39) (R56.9) Hyperlipidemia (272.4) (E78.5) Hypertension (401.9) (I10) Atrial fibrillation (427.31) (I48.91) Dyspnea (786.09) (R06.00) Aftercare following surgery (V58.89) (Z48.89) Ductal carcinoma in situ (DCIS) of left breast (233.0) (D05. 12) Allergies and Adverse Reactions Keflex (Allergy) Strawberries (Allergy) Medications Diclofenac Sodium 75 MG Oral Tablet Becca yed Release; TAKE 1 TABLET BY MOUTH TWICE DAILY Start: 22-Dec-2017 Refills: 0 60 Tablet Bottle Calcium 500+D3 500-400 MG-UNIT Oral Tablet; Take 1 tablet tw ice daily Start: 22-Dec-2017 Refills: 0 Tylenol 8 Hour 650 MG Oral Tablet Extended Release; TAKE 1 T ABLET PRN Refills: 0 ProAir HFA 108 (90 Base) MCG/ACT Inhalat ion Aerosol Solution; INHALE 1 TO 2 PUFFS EVERY 4 TO 6 HOURS NEEDED. Start: 22-Dec-2017 Refills: 0 8.5 GM Inhaler Aspirin 81 MG Oral Tablet Delayed Release; TAKE 1 TABLET ANGELITO LY DIRECTED. Start: 22-Dec-2017 Refills: 0 Centrum Women Oral Tablet; TAKE 1 TABLET DAILY. Start: 22-Dec-2017 Refills: 0 Cranberry/Probiotic Oral Tablet; TAKE 1 TABLET DAILY DIRE CTED. Start: 22-Dec-2017 Refills: 0 Lasix 40 MG Oral Tablet; TAKE 1 TABLET DAILY. Start: 22-Dec-2017 Refills: 0 levETIRAcetam 500 MG Oral Tablet; TAKE 1 TABLET TWICE DAILY. Start: 22-Dec-2017 Refills: 0 Lisinopril 20 MG Oral Tablet; TAKE 1 TABLET DAILY DIRECTE D. Start: 22-Dec-2017 Refills: 0 15 Tablet Bottle Metoprolol Tartrate 25 MG Oral Tablet; TAKE 1 TABLET TWICE D AILY. Start: 22-Dec-2017 Quantity: 60 Refills: 11 raNITIdine HCl - 150 MG Oral Capsule; TAKE 1 CAPSULE TWICE D AILY. Start: 22-Dec-2017 Refills: 0 Simvastatin 40 MG Oral Tablet; TAKE 1 TABLET DAILY IN THE EV ENING. Start: 22-Dec-2017 Refills: 0 30 Tablet Bottle traMADol HCl - 50 MG Oral Tablet; TAKE 1 TABLET 4 TIMES DAILY NEEDED FOR PAIN. Start: 22-Dec-2017 Quantity: 60 Refills: 0 tiZANidine HCl - 4 MG Oral Capsule; TAKE 1 CAPSULE AT BEDTIM E Start: 22-Dec-2017 Refills: 0 Procedures History of Shoulder Arthroplasty Total Shoulder Status: Completed Replacement History of Knee Replacement Status: Comp leted History of Back Surgery Status: Complete d History of Hernia Repair Status: Complet ed History of Left Breast Lumpectomy Status : Completed 22-Feb-2018 0:00 Immunizations Immunizations not documented Family History Mother Family history of diabetes mellitus (V18.0) (Z83.3) Status: Active Family history of hypertension (V17.49) (Z82.49) Status: Act farrukh Family history of cardiac disorder (V17.49) (Z82.49) Status: Active Family history of cerebrovascular accident (CVA) (V17.1) (Z8 2.3) Status: Active Grandparent Family history of diabetes mellitus (V18.0) (Z83.3) Status: Active Social History - Smoking Status Former smoker Plan of Treatment Planned Observations Planned Goals not documented Results No Known Results Results not documented Encounters Appointment; Raymond Foley DO 04-Apr-2018 13:30 Encounter Diagnosis: Problem not documented Appointment; Echo/Stress, Echo/Stress 28-Mar-2018 13:00 Encounter Diagnosis: Problem not documented Appointment; Kishan Patel M.D. 16-Mar-2018 15:00 Encounter Diagnosis: Problem not documented Appointment; Raymond Foley DO 07-Mar-2018 10:40 Encounter Diagnosis: Problem not documented Appointment; Raymond Foley DO 22-Feb-2018 11:30 Encounter Diagnosis: Problem not documented Appointment; Alice Dominique PA-C 11-Jan-2018 9:30 Encounter Diagnosis: Problem not documented Appointment; Raymond Foley DO 22-Dec-2017 9:10 Encounter Diagnosis: Problem not documented Appointment; Roney Begum M.D. 19-Jun-2018 10:30 Encounter Diagnosis: Problem not documented
[2018-10-10 07:17] LABS: Creatinine Clr Calc Pharmacy 76.7 ml/min; Est GFR (African American) 80.5; Est GFR (Non-African American) 69.4
[2018-10-10] MEDS: DICLOFENAC SODIUM 75 MG TABCR PO SCH ×2 (07:59→21:06)
[2018-10-10] MEDS: METOPROLOL TARTRATE 25 MG TAB PO SCH ×2 (07:59→20:58)
[2018-10-10] MEDS: HEPARIN SOD 5,000 UNIT/0.5 ML VIAL SQ SCH ×2 (08:00→21:00)
[2018-10-10] MEDS: FUROSEMIDE 40 MG TAB PO SCH (08:00)
[2018-10-10] MEDS: ASPIRIN 81 MG ECTAB PO SCH (08:00)
[2018-10-10] MEDS: LISINOPRIL 40 MG TAB PO SCH (08:00)
[2018-10-10] MEDS ORDERED: LOPERAMIDE HCL 2 MG CAP PO PRN (08:05)
[2018-10-10] MEDS: LACTOBACILLUS ACIDOPHILUS 1 GM PACK PO SCH ×2 (10:23→17:10)
[2018-10-10] MEDS: DOXYCYCLINE HYCLATE 100 MG in DEXTROSE 5% 100 ML IV SCH (10:23)
[2018-10-10] MEDS: ACETAMINOPHEN 325 MG TAB PO PRN (10:29)
[2018-10-10] MEDS ORDERED: VANCOMYCIN TROUGH ONE (13:30)
--- NOTE | 2018-10-10 14:14 | Hospitalist Progress Note ---
Date of Service October 10, 2018 Assessment & Plan (1) Cellulitis of left lower extremity: Extensive over LLE. - Placed on doxy and vanc on admission - Erythema continues to show improvement - Was on vanc & doxy - Switched to oral abx on 10/10 as she lost IV access and declined further attempts at IV placement (2) Atrial fibrillation: Paroxsymal; sinus on admission. - Is not anticoagulated due to fall risk and possibly prior meningioma. - Cont metoprolol for rate control (3) Hypertension: BP has been normal to mildly elevated (160/80) in the last 48 hours. 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 - No inpatient needs (5) Lumbar spinal stenosis: - PT/OT; recommend placement - Plan for [facility] on discharge (6) Lymphedema: Severe. - Continue Lasix & elevate legs (7) DVT prophylaxis: Heparin 5000 units BID Subjective Feeling well today, though still having some pain in her legs. Reports no fevers/chills, chest pain, shortness of breath, abdominal pain, nausea, or vomiting. Review of Systems Integumentary: + erythema and + skin swelling Physical Exam Constitutional: WD/WN, vitals as above Eyes: EOM intact bilaterally; no conjunctival abnormality ENMT: external ear and nose normal, oropharynx normal Neck: trachea midline, no thyromegaly normal visual inspection Respiratory: normal respiratory effort, lungs clear to auscultation no respiratory distress Cardiovascular: RRR, no murmur, no edema Gastrointestinal (Abdomen): Inspection/Auscultation: abdomen normal to inspection; abdomen not distended Musculoskeletal: no cyanosis or clubbing, extremities motor strength 5/5 Skin: + erythema (Left thigh and calf.) Neurologic: moves all extremities and awake Psychiatric: Orientation: alert, oriented to person and cooperative Results & Data Vital Signs (Past 12 Hours) Vital Signs Temp Pulse Resp BP Pulse Ox 10/10/18 07:23 36.5 C 66 18 148/81 H 95 10/10/18 03:54 36.4 C L 63 18 121/71 93
[2018-10-10] MEDS: VANCOMYCIN HCL 1,500 MG in SODIUM CHLORIDE 0.9% 500 ML IV SCH (19:08)
[2018-10-10] MEDS: SULFAMETHOXAZOLE/TRIMETHOPRIM DS 800/160MG TAB PO SCH (20:59)
[2018-10-10] MEDS: SIMVASTATIN 40 MG TAB PO SCH (21:00)
[2018-10-10] MEDS: TIZANIDINE HCL 4 MG TABLET PO SCH (21:00)
[2018-10-10] MEDS: GABAPENTIN 100 MG CAP PO SCH (21:27)
[2018-10-11] MEDS: ACETAMINOPHEN 325 MG TAB PO PRN ×2 (00:42→14:27)
[2018-10-11 07:33] VITALS: BP 135/84
[2018-10-11] MEDS: SULFAMETHOXAZOLE/TRIMETHOPRIM DS 800/160MG TAB PO SCH (07:43)
[2018-10-11] MEDS: FUROSEMIDE 40 MG TAB PO SCH (07:43)
[2018-10-11] MEDS: DICLOFENAC SODIUM 75 MG TABCR PO SCH (07:44)
[2018-10-11] MEDS: LISINOPRIL 40 MG TAB PO SCH (07:44)
[2018-10-11] MEDS: GABAPENTIN 100 MG CAP PO SCH (07:44)
[2018-10-11] MEDS: ASPIRIN 81 MG ECTAB PO SCH (07:44)
[2018-10-11] MEDS: METOPROLOL TARTRATE 25 MG TAB PO SCH (07:44)
[2018-10-11] MEDS: LACTOBACILLUS ACIDOPHILUS 1 GM PACK PO SCH (07:45)
[2018-10-11] MEDS: HEPARIN SOD 5,000 UNIT/0.5 ML VIAL SQ SCH (07:46)
[2018-10-11 15:36] VITALS: TEMP 97.7; O2SAT 96
[2018-10-11 16:02] VITALS: PULSE 64
--- NOTE | 2018-10-11 17:56 | Discharge Summary ---
Date of Service October 11, 2018 Admission HPI Per Admitting Provider 73 y/o F Hx PAF, HTN, HLD, seizure disorder, spinal stenosis with chronic lower extremity lymphedema, numbness and an unsteady gait. Presents with progressive pain, erythema and swelling of the LLE possibly following minor trauma. She denies fevers or rigors. PMH: 1) Paroxysmal atrial fibrillation - no anticoagulation due to fall risk 2) HTN 3) HLD 4) Spinal stenosis with LE numbness and gait dysfunction 5) DCIS - limpectomy 6) Distant history of DVT 7) Meningioma - excision 8) Seizure disorder - led to diagnosis of a meningioma 9) [facility]: 1) Excision of a meningioma 2016 2) Breast lumpectomy 2016 3) L2 laminectomy Social: Quit smoking in the 1970s, does not drink, lives with daughter. Mobilizes with a walker and wheelchair. Family: Noncontributory Principal Diagnosis LLE cellulitis Discharge Exam Constitutional WD/WN, vitals as above Eyes EOM intact bilaterally; no conjunctival abnormality ENMT external ear and nose normal, oropharynx normal Neck trachea midline, no thyromegaly normal visual inspection Respiratory normal respiratory effort, lungs clear to auscultation no respiratory distress Cardiovascular RRR, no murmur, no edema Gastrointestinal (Abdomen) Inspection/Auscultation: abdomen normal to inspection; abdomen not distended Musculoskeletal no cyanosis or clubbing, extremities motor strength 5/5 Skin + erythema (Left thigh and calf.) Neurologic moves all extremities and awake Psychiatric Orientation: alert, oriented to person and cooperative Discharge Data Allergies Allergy/AdvReac Type Severity Reaction Status Date / Time cephalexin Allergy Unknown HIVES Verified 10/06/18 16:18 strawberry Allergy Unknown hives Verified 10/06/18 16:18 Unclassified Drugs Allergy Unknown DIAL SOAP Uncoded 10/06/18 16:18 - RASH Consultations 10/06/18 19:17 ED Decision to Admit Stat 10/09/18 11:35 Consult Case Management - Discharge Planning Routine Ordered Studies 10/06/18 16:22 US venous doppler LE LT Stat Hospital Course (1) Cellulitis of left lower extremity: Extensive over LLE. - Placed on doxy and vanc IV on admission - Over the course of the admission, the erythema, swelling, and tenderness significantly improved - Switched to oral abx on 10/10 as she lost IV access and declined further attempts at IV placement - Discharged on Bactrim DS PO BID x 5 more days (End date: 10/15) - Started on low-dose gabapentin for neuropathic pain from the cellulitis - Could be stopped in 4-5 days after pain has resolved. - Had some diarrhea that self-resolved. C. diff PCR was positive, but toxin was negative. This indicates carrier-status. No treatment given and diarrhea had stopped >24 hours before discharge. (2) Atrial fibrillation: Paroxsymal; sinus on admission. - Is not anticoagulated due to fall risk and possibly prior meningioma. - Continued metoprolol for rate control (3) Hypertension: BP has been normal to mildly elevated (160/80) in the last 48 hours. 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 - No inpatient needs (5) Lumbar spinal stenosis: - PT/OT; recommend placement - Plan for [facility] on discharge (6) Lymphedema: Severe. - Continue Lasix & elevate legs - Could benefit from SCOTTY wraps once cellulitis and pain have resolved. (7) DVT prophylaxis: Heparin 5000 units BID Total Time Total Time Spent Total Time Spent (In Minutes): 35 Total Time Includes: Examination of the Patient, Discharge Planning and Medication Reconciliation Discharge Plan Discharge Items Patient Disposition: Transfer Inpatient Rehab Fac Reason For Visit: CELLULITIS Discharge Diagnosis: Cellulitis Discharge Goals: Decrease discomfort, Diagnostic testing and Increase independence Activity: Resume your previous activity Non-emergency contact: Primary Care Provider Call non-emergency contact if: your symptoms worsen, your pain is not controlled and your temperature is above 100.5 Follow-up/Referrals: Beatrice Mercado DO [Primary Care Provider] - Diet: Low Sodium (2gm) Addtl Provider Instructions: Ms. Riggins was admitted for LLE cellulitis. Improved on vancomycin and doxycyclin IV. Now on Bactrim to finish course. End date: 10/15/2018 for a 10-day course. Started gabapentin 100mg PO BID on 10/10 for neuropathic pain in the left calf from the cellulitis. Could probably stop this in 3-5 days if the calf pain resolves. It had substantially improved by the time she was discharged. Finally, she had some diarrhea that self-resolved. C. diff was sent. 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 On discharge, she hadn't had any diarrhea for >24 hours. Prescriptions: New sulfamethoxazole-trimethoprim 800-160 mg Tablet 1 tab PO Q12 Qty: 5 RF: 0 gabapentin 100 mg Capsule 100 mg PO BID Qty: 1 RF: 0 Continued aspirin [Aspir-81] 81 mg Tablet,Delayed Release (Dr/Ec) 81 mg PO QAM Qty: 0 RF: 0 simvastatin 40 mg Tablet 40 mg PO HS Qty: 0 RF: 0 ranitidine HCl 150 mg Capsule 150 mg PO QAM Qty: 0 RF: 0 lisinopril 40 mg Tablet 40 mg PO QAM Qty: 0 RF: 0 multivitamin Capsule 1 cap PO QAM Qty: 0 RF: 0 tizanidine 4 mg Capsule 4 mg PO HS Qty: 0 RF: 0 diclofenac sodium 75 mg Tablet,Delayed Release (Dr/Ec) 75 mg PO BID Qty: 0 RF: 0 albuterol sulfate 90 mcg/actuation Hfa Aerosol Inhaler 2 puffs INHALATION Q6H PRN (Reason: Wheezing) Qty: 1 RF: 0 metoprolol tartrate 25 mg Tablet 25 mg PO BID Qty: 0 RF: 0 calcium carbonate-vitamin D3 [Calcium 500 + D] 500 mg(1,250mg) -200 unit Tablet 1 tab PO BID Qty: 0 RF: 0 furosemide 40 mg tablet 40 mg PO QAM Qty: 0 RF: 0 acetaminophen [Tylenol Arthritis Pain] 650 mg Tablet Extended Release 650 mg PO Q4H RF: 0 tramadol 50 mg Tablet 50 mg PO Q6H PRN (Reason: Pain) Qty: 4 RF: 0 Stand-Alone Forms: [facility] Discharge Orders: Discharge Order (Routine); Ordered 10/11/18 Ordered By: Adam Welch Skilled Items Patient informed of condition?: Yes DNR: No Discharge Level of Care: Acute rehab Communicable Disease: Yes Discharge Prognosis: Improving Admission Data Admit Date/Time: 10/06/18 20:13 Attending Provider: Adam Welch Admit Provider: Nick Melchor Primary Care Provider: Beatrice Mercado Other Providers: Nick Melchor Service: Medical Other DC Date/Time DO NOT enter until pt leaves facility: 10/11/18 16:40
== END 2018-10-11 16:40 | DRG 603 ==
LOC: ED 14:11 → 4E 20:13 → SUATTDRO 20:13 → 4E 20:51

== ENCOUNTER 2019-04-07 10:05 | Inpatient (IN) ==
[2019-04-07 11:12] LABS: Basophils # (auto) 0.01 K/uL (0-0.2); Basophils % (auto) 0.1 %; Eosinophils # (auto) 0.06 K/uL (0-0.5); Eosinophils % (auto) 0.8 %; Hematocrit (blood only) 40.6 % (37-47); Hemoglobin 12.4 g/dL (12.0-16.0); Immature Granulocytes # (auto) 0.02 K/uL (0.00-0.02); Immature Granulocytes % (auto) 0.3 %; Lymphocytes # (auto) 1.52 K/uL (1.2-3.4); Lymphocytes % (auto) 20.5 %; Mean Corpuscular Hemoglobin 29.7 pg (25-34); Mean Corpuscular Hgb Conc 30.5 g/dL (32-36); Mean Corpuscular Volume 97.1 fL (80-100); Mean Platelet Volume 10.5 fL (7.4-10.4); Monocytes % (auto) 10.8 %; Neutrophils # (auto) 4.99 K/uL (1.4-6.5); Neutrophils % (auto) 67.5 %; Platelet Count 152 K/uL (130-400); RDW Coefficient of Variation 14.6 % (11.5-14.5); RDW Standard Deviation 52.1 fL (36.4-46.3); Red Blood Count 4.18 M/uL (4.2-5.4)
[2019-04-07 11:29] LABS: Appearance Urine Cloudy (Clear); Bacteria Urine Automated 4+ (Negative); Bilirubin Urine Negative (Negative); Blood Urine 3+ (Negative); Color Urine Yellow; Glucose Urine UA Negative (Negative); Ketones Urine Negative (Negative); Leukocyte Esterase Urine 2+ (Negative); Nitrite Urine Positive (Negative); Protein Urine 1+ (Negative); RBC Urine Automated >30 /hpf (0-4); Urobilinogen Urine Negative (Negative); WBC Urine Automated >30 /hpf (0-5); pH Urine 6.5 (4.5-7.5)
[2019-04-07 11:38] LABS: Albumin Globulin Ratio 1.2 (0.9-2); Albumin Level 3.8 gm/dl (3.4-5.0); BUN Creatinine Ratio 38.8 (10-20); Calcium 9.4 mg/dl (8.5-10.1); Creatinine Clr Calc Pharmacy 63.1 ml/min; Est GFR (African American) 72.5; Est GFR (Non-African American) 62.6; Globulin 3.2 gm/dl (2.5-4.0); Troponin I 0.034 ng/ml (0-0.045)
--- NOTE | 2019-04-07 11:40 | CT Scan Report ---
CT OF THE HEAD WITHOUT CONTRAST CLINICAL HISTORY: Stroke evaluation. COMPARISON STUDY: MRI of the brain April 11, 2019. TECHNIQUE: Helical axial images of the head were obtained without IV contrast. Automated exposure con trol was utilized for the study. A dose lowering technique was utilized adhering to the principles o f ALARA. FINDINGS: No acute intracranial hemorrhage, midline shift or mass effect is present. The ventricular system is unremarkable. The basilar cisterns are patent. No extra-axial collections are present. Ther e are no findings to suggest acute dural sinus thrombosis or acute territorial infarct. No significan t calvarial abnormalities are present. Visualized portions of the sinuses and mastoid air cells are c lear. White matter hypodensity suggests small vessel disease. A left frontotemporal craniotomy is not ed. IMPRESSION: 1. No acute intracranial findings. 2. Moderate white matter hypodensities which favor small vessel disease. 3. Status post left frontotemporal craniotomy. Electronically signed by: Dharmesh Booth M.D. 04/07/2019 11:39 AM
--- NOTE | 2019-04-07 11:57 | CT Scan Report ---
CT OF THE LUMBAR SPINE CLINICAL HISTORY: Bilateral leg numbness. COMPARISON STUDY: Lumbar spine radiographs February 16, 2014. TECHNIQUE: Helical axial images of the lumbar spine were obtained. Sagittal and coronal reconstruct ions were viewed. Automated exposure control was utilized for the study. A dose lowering technique was utilized adhering to the principles of ALARA. FINDINGS: For purposes of numbering on this exam, the L5-S1 disc space is assigned to axial image 271 of 325. There is minimal curvature of the lumbar spine. Note is made of a 7 mm of retrolisthesis of L2 and L3, 5 mm of retrolisthesis of L3 on L4 and mild anterolisthesis of L4 and L5. No acute fractur es present. There is no suspicious osseous lesion. Severe multilevel disc space narrowing and osteoph ytosis is noted with multiple the level vacuum disc phenomenon. L4-L5 posterior decompression is note d. Trace bilateral pleural effusions are noted. Bilateral adrenal nodules are unchanged since treatme nt planning CT of April 04, 2018. These reflect adenomas. Central canal and neural foramen are subo ptimally assessed by CT. However, there is suspected severe central canal stenosis at L3-L4 and mild to moderate narrowing at L2-L3 and L4-L5. Altered level facet arthrosis is also noted, most pronounce d at the L3-L4 level. Sacroiliac joints are intact. IMPRESSION: 1. No acute lumbar spine fracture or subluxation. 2. Status post L4-L5 posterior decompression. 3. Severe multilevel degenerative changes within the lumbar spine. Suboptimal evaluation of the centr al canal and neural foramen given CT technique however suspected severe central canal stenosis at L3- L4 and mild to moderate central canal stenosis at L2-L3 and L4-L5. Multilevel neural foraminal stenos is, most pronounced at L3-L4. Electronically signed by: Dharmesh Booth M.D. 04/07/2019 11:56 AM
--- NOTE | 2019-04-07 12:08 | CT Scan Report ---
CT pelvis wo con CLINICAL HISTORY: Right hip pain. COMPARISON STUDY: No previous studies for comparison. TECHNIQUE: Axial images of the pelvis and hips were obtained without IV contrast. Sagittal and croft l reconstructions were viewed. Automated exposure control was utilized for the study. A dose lowerin g technique was utilized adhering to the principles of ALARA. FINDINGS: Sacroiliac joints and symphysis pubis are intact. No acute fracture within the pelvis or hi ps is noted. Severe right hip osteophytosis noted with extensive subchondral cystic change and osteop hytosis. There is flattening of the right femoral head. A right hip joint effusion is present. Severa l suspected fibroids measure up to 4.5 cm. There is no pelvic lymphadenopathy. There is no pelvic hem atoma. No suspicious osseous lesions are noted. Postoperative findings within the lumbar spine are be tter depicted on the lumbar spine CT. Mild bladder wall thickening is accentuated by underdistention. IMPRESSION: 1. No acute fracture within the pelvis or hips. 2. Severe right hip osteoarthritis with joint space narrowing and extensive subchondral cystic change and sclerosis with osteophytosis. Flattening of the right femoral head. Nonspecific moderate to larg e right hip joint effusion. Electronically signed by: Dharmesh Booth M.D. 04/07/2019 12:07 PM
[2019-04-07] MEDS ORDERED: KETOROLAC 30 MG/ML VIAL IV ONE (12:28)
[2019-04-07 12:34] LABS: INR 1.1 (0.9-1.1); Partial Thromboplastin Ratio 0.8; Partial Thromboplastin Time 22.5 Seconds (21.0-31.0); Prothrombin Time 11.4 Seconds (9.0-12.0)
[2019-04-07 12:35] LABS: Potassium 4.2 mmol/L (3.5-5.1)
[2019-04-07 12:40] LABS: Magnesium 2.4 mg/dl (1.8-2.4)
[2019-04-07] MEDS ORDERED: PIPERACILL/TAZOBAC CONSULT ACTIVE PRN (12:59)
[2019-04-07] MEDS ORDERED: PIPERACILLIN/TAZOBACTAM 4.5 GM in DEXTROSE 5% 100 ML IV STA (12:59)
[2019-04-07] MEDS ORDERED: PIPERACILLIN/TAZOBACTAM 4.5 GM/120 ML BAG IV ONE (13:30)
--- NOTE | 2019-04-07 14:23 | History & Physical Report ---
Date of Service April 07, 2019 Assessment & Plan (1) UTI (urinary tract infection): Admit to PCU on telemetry VS Q4 hr, CBC, CMP daily Monitor lytes and replenish Started Zosyn in the ER, continued Follow up Ucx DVT ppx scd, teds, due to possible bleeding from meningioma and risk of mechan ical fall will avoid medical anticoagulation Full code Present on Admission?: Yes (2) Hip pain, right: Right hip pain with effusion. Pt seen by [facility] as outpatient. Surgical evaluation planned for Apr 16, 2019. Consult [facility] Continue pain management Present on Admission?: Yes (3) Spinal stenosis: Consult for severe lumbar spinal stenosis Pain management Lumbar spinal stenosis: PT/OT Present on Admission?: Yes (4) Atrial fibrillation: Paroxysmal; Pt Is not anticoagulated due to fall risk and possibly prior meningioma. Cont metoprolol for rate control Present on Admission?: Yes (5) Hyperlipidemia: Lipid panel pending. Present on Admission?: Yes (6) Hypertension: BP has been normal to mildly elevated (160/80) Given Hydralazine PO 25 mg once in the ER, consider adding PRN for uncontrolled BP. 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 No issues at this visit. Present on Admission?: Yes History of Present Illness Chief Complaint: Patient is a 74 years old female with past medical history of atrial fibrillation not on anticoagulation due to high risk of frequent falls, hypertension, ductal carcinoma in situ of the left breast, lumbar spine stenosis, chronic lower extremity lymphedema, peripheral neuropathy, hyperlipidemia, prior seizures, history of craniotomy for removal of meningioma in the past, total knee replacement, total shoulder replacement, GERD, COPD who was brought to the emergency room from her home after she reported feeling weak and not being able to stand up on her feet. Patient says she was trying to get out of bed and after half an hour trying to get out she realized that she is not able to because her feet were just not following directions. She felt weakness in both of her lower extremities. Patient did not have any significant mechanical fall and she did not hit with her body and any hard surfaces. Patient is alert and oriented able to communicate and she gave the whole history. Patient is pleasant. Patient denies fever, chills, headache, chest pain, shortness of breath, frequency, urgency, hematemesis, hematuria, melena. Patient said that she is supposed to have total right hip replacement and anesthesia evaluation on April 16. She is patient of [facility]. Labs are reviewed: WBC 7.4, hemoglobin 12.4, hematocrit 40.6, platelets 152, PT 11.4, INR 1.1, APTT 22.5, sodium 142, potassium 4.2, chloride 112, anion gap 6, BUN 35, creatinine 0.91, GFR 62.6, magnesium 2.4, AST 22, ALT 35, troponin 0.0 34-borderline but patient denies chest pain, BNP 1973, urine positive for nitrates, 2+ leukocyte esterase, over 30to white blood cell, over 30 of RBCs, 4+ bacteria. Slight costovertebral angle tenderness bilaterally(tenderness could be due to lumbar stenosis). Lumbar CT: No acute lumbar spine fracture or [place] bluxation. Status post L4-L5 posterior decompression. Severe multilevel degenerative changes within the lumbar spine. Suboptimal evaluation of the central canal and neural foramina given CT technique however suspect severe central canal stenosis at L3-L4 and mild to moderate central canal stenosis at L2-L3 and L4-L5 multilevel neural foraminal stenosis most pronounced at L3-L4. CT of the head without contrast compared with MRI of the brain April 11, 2018: Showed no acute intracranial findings. Moderate white matter hypodensity which favors small vessel disease. Status post left frontotemporal craniotomy. Pelvis CT scan: No acute fracture within the pelvis or hips. Severe right hip osteoarthritis with joint space narrowing and extensive subchondral cystic change and sclerosis with osteophytosis. Flattening of the right femoral head. Nonspecific moderate to large right hip joint effusion. Decision was made to admit patient to the PCU telemetry for further evaluation and treatment of urinary tract infection right hip large effusion, and severe lumbar stenosis. Primary Care Provider: Beatrice Mercado DO Allergies Allergy/AdvReac Type Severity Reaction Status Date / Time cephalexin Allergy Unknown HIVES Verified 04/07/19 10:46 strawberry Allergy Unknown hives Verified 04/07/19 10:46 Unclassified Drugs Allergy Unknown DIAL SOAP Uncoded 04/07/19 10:46 - RASH Home Medications Home Medications Medication Instructions Recorded Confirmed Type aspirin [Aspir-81] 81 mg PO QPM #0 02/14/14 04/07/19 History lisinopril 40 mg PO QAM #0 tab 02/14/14 04/07/19 History multivitamin 1 cap PO QAM #0 tab 02/14/14 04/07/19 History ranitidine HCl 150 mg PO BID #0 tab 02/14/14 04/07/19 History tizanidine 4 mg PO HS #0 02/14/14 04/07/19 History albuterol sulfate 2 puffs INHALATION Q6H PRN #1 12/28/17 04/07/19 History inhaler calcium carbonate-vitamin D3 1 tab PO BID #0 tab 12/28/17 04/07/19 History [Calcium 500 + D] diclofenac sodium 75 mg PO BID #0 tab 12/28/17 04/07/19 History metoprolol tartrate 25 mg PO BID #0 tab 12/28/17 04/07/19 History furosemide 40 mg tablet 40 mg PO QAM #0 tab 04/17/18 04/07/19 History acetaminophen [Tylenol Arthritis 650 mg PO Q6H PRN 10/06/18 04/07/19 History Pain] gabapentin 100 mg PO BID #1 cap 10/11/18 04/07/19 Rx tramadol 50 mg PO Q6H PRN #4 tab 10/11/18 04/07/19 Rx cranberry-B.jorloqcg-I-Us phos 1 tab PO QDL 04/03/19 04/07/19 History [Cranberry-Probiotic] Past Med/Surg History Medical History Peripheral neuropathy Atrial fibrillation dx few years ago - PCP monitors - on ASA, BB Hyperlipidemia Hypertension Seizure sz first episode 2014, discovered brain tumor; additional sz S/P BRAIN TUMOR REMOVAL IN 2017; now with NO SENSE OF SMELL, NO OTHER COMPLICATIONS. last seizure 2017. no longer on seizure medications Stress incontinence in female Osteoarthritis History of DVT (deep vein thrombosis) 20+ YEARS AGO AFTER ANKLE FX GERD (gastroesophageal reflux disease) Spinal stenosis with neuropathy History of benign brain tumor s/p removal 2016 Raynauds disease COPD (chronic obstructive pulmonary disease) Lumbar spinal stenosis (02/14/14) Dizziness intermittent; h/o recent falls; for carotid ultrasound 04/03/19 Hearing deficit [place] [facility] Heart valve regurgitation per recent echo 03/27 [place] History of breast cancer s/p left breast lumpectomy + radiation History of recent fall multiple falls 01/2019 and 02/2019 - pt reports she felt dizzy and fell to ground with each episode. denies injuries. did not report to hospital. reports pcp ordered carotid ultrasound - scheduled 04/03/19 Surgical History History of craniotomy HX OF BENIGN TUMOR REMOVAL IN 2016 History of laminectomy LUMBAR History of total knee replacement BILATERAL History of total shoulder replacement RIGHT History of ankle fusion RIGHT History of lumpectomy of left breast History of breast biopsy History of ovarian cystectomy History of repair of hiatal hernia Family History Mother , Passed age 62 of [place] No problems noted. Father , Passed age 68 of accident (fell down steps) No problems noted. Brother Family history of diabetes mellitus Brother No problems noted. Sister Slow to wake up after anesthesia twin sister Breast cancer Twin - Left Breast - Lumpectomy/Chemo/RXT Sister No problems noted. Sister No problems noted. Sister No problems noted. Sister No problems noted. Son Sarcoidosis Son No problems noted. Daughter No problems noted. 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 ; Do You Dip or Chew Tobacco: No ; Smoking End Date: 1971 ; Second Hand Exposure: No ; Tobacco Cessation Education Requested by Patient: No Hx Alcohol Use: No Hx Substance Use: No caffeine: No Review of Systems Review of Systems: All systems reviewed & are unremarkable except as noted in HPI & below Physical Exam Constitutional: WD/WN, vitals as above well developed and + obese Eyes: PERRL, conjunctivae normal, anicteric sclerae ENMT: external ear and nose normal, oropharynx normal Neck: trachea midline, no thyromegaly Respiratory: normal respiratory effort, lungs clear to auscultation Cardiovascular: Rate/Rhythm: + irregularly irregular Heart Sounds: normal S1 and normal S2 Palpation: + palpable S3 Vessels: dorsalis pedis pulses present Extremities: + pedal edema and + edema (Bilateral lymphedema with chronic venous stasis) Gastrointestinal (Abdomen): normal bowel sounds, soft, nontender, no hepatosplenomegaly Musculoskeletal: no cyanosis or clubbing, extremities motor strength 5/5 Skin: no rashes, warm and dry Neurologic: patellar DTR's 2+ bilat, sensation intact Psychiatric: A+Ox3, euthymic affect Lymphatic: no cervical or axillary lymphadenopathy Results & Data Vital Signs (Past 12 Hours) Vital Signs Temp Pulse Pulse Resp BP BP Pulse Ox 04/07/19 13:03 70 20 173/93 H 97 04/07/19 11:16 90 22 131/70 95 04/07/19 10:08 36.5 C 67 18 179/94 H 97 Code Status & VTE Plan Code Status Full code VTE Prophylaxis Plan VTE Prophylaxis will be ordered: No PG Care Time/CCT Total # of Minutes Spent Total Time Spent with Patient: Total time spent is greater than 50% in coordination of care (as documented) at patient's floor/unit and/or counseling patient: (1) UTI (urinary tract infection) Hematuria presence: without hematuria Urinary tract infection type: site unspecified Qualified Code(s): N39.0 - Urinary tract infection, site not specified (2) Spinal stenosis Neurogenic claudication status: unspecified Spinal region: lumbar Qualified Code(s): M48.061 - Spinal stenosis, lumbar region without neurogenic claudication
[2019-04-07] MEDS ORDERED: ALBUTEROL HFA 8 GM INHALER INH PRN (15:21)
[2019-04-07] MEDS ORDERED: POLYETHYLENE (MIRALAX) 17 GM PACK PO PRN (15:21)
[2019-04-07] MEDS ORDERED: ALUMINUM/MAGNESIUM SUSP 30 ML UDC PO PRN (15:21)
[2019-04-07] MEDS ORDERED: MAGNESIUM HYDROXIDE SUSP 30 ML UDC PO PRN (15:21)
[2019-04-07] MEDS ORDERED: SODIUM CHLORIDE 0.9% 1000ML 1,000 ML IV SCH (15:21)
--- NOTE | 2019-04-07 15:23 | Emergency Department Note ---
Entered by Luisa Davis acting as a scribe for Scar Allen MD History of Present Illness General Chief complaint: Leg Weakness, Bilateral Stated complaint: weakness Time Seen by Provider: 04/07/19 10:11 Source: patient History of Present Illness Onset (ago): hour(s) 2 Location: lower extremity (bilateral weakness, right worse than left ) Pain Consistency: + other (worsening) Maximum Pain Intensity: 9 Relieved By: + none Associated symptoms: + denies other symptoms (trouble speaking, trouble swallowing, visual problems, and arm numbness) and + other (right hip pain and increased urination); no fever/chills The patient is a 74 year old F who presents to the Emergency Room with complaints of worsening leg weakness that started 2 hours ago. She states that she woke up this morning at 8:30am. She notes that she tried to get out of bed and stand up, but adds that her legs gave out. She states that her weakness is worse in her right leg. She denies falling down from her weakness but adds that she has fallen down a couple of times this month. She notes that she was experiencing leg numbness when she got up. She denies that she is currently experiencing leg numbness. She also denies experiencing these symptoms in the past. The last time the patients family saw the patient using her legs properly was last night. The patient adds that she is currently experiencing right hip pain and increased urination. She denies that she is experiencing fevers, chills, trouble speaking, trouble swallowing, visual problems, and arm numbness. She notes that she takes a baby aspirin regularly. She states that she has a history of A Fib, brain tumor, and a spinal surgery in 2013. Home Medications Home Medications Medication Instructions Recorded Confirmed Type aspirin [Aspir-81] 81 mg PO QPM #0 02/14/14 04/07/19 History lisinopril 40 mg PO QAM #0 tab 02/14/14 04/07/19 History multivitamin 1 cap PO QAM #0 tab 02/14/14 04/07/19 History ranitidine HCl 150 mg PO BID #0 tab 02/14/14 04/07/19 History tizanidine 4 mg PO HS #0 02/14/14 04/07/19 History albuterol sulfate 2 puffs INHALATION Q6H PRN #1 12/28/17 04/07/19 History inhaler calcium carbonate-vitamin D3 1 tab PO BID #0 tab 12/28/17 04/07/19 History [Calcium 500 + D] diclofenac sodium 75 mg PO BID #0 tab 12/28/17 04/07/19 History metoprolol tartrate 25 mg PO BID #0 tab 12/28/17 04/07/19 History furosemide 40 mg tablet 40 mg PO QAM #0 tab 04/17/18 04/07/19 History acetaminophen [Tylenol Arthritis 650 mg PO Q6H PRN 10/06/18 04/07/19 History Pain] gabapentin 100 mg PO BID #1 cap 10/11/18 04/07/19 Rx tramadol 50 mg PO Q6H PRN #4 tab 10/11/18 04/07/19 Rx cranberry-B.fvzktfhm-G-Wj phos 1 tab PO QDL 04/03/19 04/07/19 History [Cranberry-Probiotic] Allergies Allergy/AdvReac Type Severity Reaction Status Date / Time cephalexin Allergy Unknown HIVES Verified 04/07/19 10:46 strawberry Allergy Unknown hives Verified 04/07/19 10:46 Unclassified Drugs Allergy Unknown DIAL SOAP Uncoded 04/07/19 10:46 - RASH Past Med/Surg History Medical History Peripheral neuropathy Atrial fibrillation dx few years ago - PCP monitors - on ASA, BB Hyperlipidemia Hypertension Seizure sz first episode 2014, discovered brain tumor; additional sz S/P BRAIN TUMOR REMOVAL IN 2016; now with NO SENSE OF SMELL, NO OTHER COMPLICATIONS. last seizure 2016. no longer on seizure medications Stress incontinence in female Osteoarthritis History of DVT (deep vein thrombosis) 20+ YEARS AGO AFTER ANKLE FX GERD (gastroesophageal reflux disease) Spinal stenosis with neuropathy History of benign brain tumor s/p removal 2017 Raynauds disease COPD (chronic obstructive pulmonary disease) Lumbar spinal stenosis (02/14/14) Dizziness intermittent; h/o recent falls; for carotid ultrasound 04/03/19 Hearing deficit [place] [facility]ERT Heart valve regurgitation per recent echo 03/27 [place] History of breast cancer s/p left breast lumpectomy + radiation History of recent fall multiple falls 01/2019 and 02/2019 - pt reports she felt dizzy and fell to ground with each episode. denies injuries. did not report to hospital. reports pcp ordered carotid ultrasound - scheduled 04/03/19 Surgical History History of craniotomy HX OF BENIGN TUMOR REMOVAL IN 2017 History of laminectomy LUMBAR History of total knee replacement BILATERAL History of total shoulder replacement RIGHT History of ankle fusion RIGHT History of lumpectomy of left breast History of breast biopsy History of ovarian cystectomy History of repair of hiatal hernia Family History Mother , Passed age 62 of [place] No problems noted. Father , Passed age 68 of accident (fell down steps) No problems noted. Brother Family history of diabetes mellitus Brother No problems noted. Sister Slow to wake up after anesthesia twin sister Breast cancer Twin - Left Breast - Lumpectomy/Chemo/RXT Sister No problems noted. Sister No problems noted. Sister No problems noted. Sister No problems noted. Son Sarcoidosis Son No problems noted. Daughter No problems noted. 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 ; Second Hand Exposure: No ; Hx Alcohol Use: No Hx Substance Use: No caffeine: No Review of Systems See HPI for pertinent positives & negatives. and A total of 10 systems reviewed and were otherwise negative Physical Exam Vital Signs Vital Signs - 24 hr 04/07/19 10:08 04/07/19 11:16 04/07/19 13:03 Temperature 36.5 C Temperature Source Oral Sepsis Recent Fever Within 48 Hours No Sepsis New/Unexplained Change in Mental Status No Sepsis Action Taken by Nursing No Action Required Pulse Rate 67 Pulse Rate [Apical] 90 70 Respiratory Rate 18 22 20 Respiratory Effort / Characteristics Non-Labored Spontaneous Respiratory Depth Normal Normal Respiratory Pattern Regular Blood Pressure 179/94 H Blood Pressure [Right Arm] 131/70 173/93 H Blood Pressure Mean 122 Blood Pressure Mean [Right Arm] 90 119 Blood Pressure Position Lying Pulse Oximetry 97 95 97 Oxygen Delivery Method Room Air Room Air Room Air 04/07/19 14:47 Temperature Temperature Source Sepsis Recent Fever Within 48 Hours Sepsis New/Unexplained Change in Mental Status Sepsis Action Taken by Nursing Pulse Rate Pulse Rate [Apical] 68 Respiratory Rate 24 Respiratory Effort / Characteristics Respiratory Depth Respiratory Pattern Blood Pressure Blood Pressure [Right Arm] 177/107 H Blood Pressure Mean Blood Pressure Mean [Right Arm] 130 Blood Pressure Position Pulse Oximetry 98 Oxygen Delivery Method General: Chronically-ill appearing older female in no acute distress. HEENT: Normal cephalic atraumatic. Pupils are equal round and reactive to light. Extraocular movements are intact. Oropharynx is pink with moist mucous membranes. No swelling of the mouth lips or tongue. No trouble speaking or swallowing. Neck: Supple with a midline trachea. No meningeal signs or stiffness, no JVD or bruits. No Stridor. Chest: Clear to auscultation bilaterally. No wheezes or rhonchi. No increased work of breathing. Heart: regular rate and rhythm. Abdomen: Soft nontender, nondistended without rebound guarding or rigidity. Extremities: No cyanosis clubbing or edema. No calf tenderness or asymmetry Spine/Back. Non tender to palpation. No CVA tenderness. Right hip exquisitely tender to palpation. Skin: Good turgor without rashes. Neurologic exam: Cranial nerves two through 12 are intact. Motor and sensation are intact and symmetrical throughout. Able to wiggle toes, normal sensation. Course 1029: The patient was evaluated in room A11B. A complete history and physical exam was performed. 1227: I gave the patient some Toradol for her hip pain. 1258: I reviewed the patient's case with Dr. Wilkinson, [facility] Hospitalist. She will evaluate the patient for further management. Administered Medications Hydralazine HCl (Apresoline) 25 mg PO ONCE FIDEL Stop: 05/07/19 14:59 Last Admin: 04/07/19 14:54 Dose: 25 mg Documented by: [id number] Discontinued Medications Piperacillin Sod/Tazobactam (Sod 4.5 gm/ Dextrose) 120 mls @ 30 mls/hr IV Q8H STA; Protocol Stop: 04/07/19 16:58 Last Admin: 04/07/19 13:20 Dose: Not Given Documented by: [id number] Piperacillin Sod/Tazobactam Sod (Zosyn) 4.5 gm in 120 mls @ 240 mls/hr IV ONE ONE; Protocol Stop: 04/07/19 13:59 Last Infusion: 04/07/19 13:55 Dose: 0 mls/hr Documented by: [id number] Admin: 04/07/19 13:20 Dose: 240 mls/hr Documented by: [id number] Ketorolac Tromethamine (Toradol) 30 mg IV NOW ONE Stop: 04/07/19 12:29 Last Admin: 04/07/19 12:44 Dose: 30 mg Documented by: [id number] Medical Decision Making Differential Diagnosis Differential diagnosis includes: lumbar spinal disease, hip disease, CVA, infection, metabolic/electrolyte abnormality Medical Records Attestation: I reviewed the patient's medical records. Home Medications Current Medication List: was personally reviewed by me Laboratory Data Attestation: I reviewed the patient's lab results. Result diagrams: 04/07/19 11:03 04/07/19 12:16 Lab Results 04/07/19 04/07/19 04/07/19 Range/Units 10:49 11:03 11:03 WBC 7.40 (4.8-10.8) K/uL RBC 4.18 L (4.2-5.4) M/uL Hgb 12.4 (12.0-16.0) g/dL Hct 40.6 (37-47) % MCV 97.1 (80-100) fL MCH 29.7 (25-34) pg MCHC 30.5 L (32-36) g/dL RDW Std Deviation 52.1 H (36.4-46.3) fL RDW Coeff of Tatyana 14.6 H (11.5-14.5) % Plt Count 152 (130-400) K/uL MPV 10.5 H (7.4-10.4) fL Immature Gran % (Auto) 0.3 % Neut % (Auto) 67.5 % Lymph % (Auto) 20.5 % [place] % (Auto) 10.8 % Eos % (Auto) 0.8 % Baso % (Auto) 0.1 % Immature Gran # (Auto) 0.02 (0.00-0.02) K/uL Neut # (Auto) 4.99 (1.4-6.5) K/uL Lymph # (Auto) 1.52 (1.2-3.4) K/uL [place] # (Auto) 0.80 H (0.11-0.59) K/uL Eos # (Auto) 0.06 (0-0.5) K/uL Baso # (Auto) 0.01 (0-0.2) K/uL PT Cancelled INR Cancelled APTT Cancelled PTT Ratio Cancelled Sodium (136-145) mmol/L Potassium (3.5-5.1) mmol/L Chloride (98-107) mmol/L Carbon Dioxide (21-32) mmol/L Anion Gap (3-11) BUN (7-18) mg/dl Creatinine (0.6-1.2) mg/dl Est Cr Clr Drug Dosing ml/min Est GFR ( Amer) Est GFR (Non-Af Amer) BUN/Creatinine Ratio (10-20) Glucose (70-99) mg/dl POC Glucose 103 H (70-99) Calcium (8.5-10.1) mg/dl Magnesium (1.8-2.4) mg/dl Total Bilirubin (0.2-1) mg/dl AST (15-37) U/L ALT (12-78) U/L Alkaline Phosphatase (45-117) U/L Troponin I (0-0.045) ng/ml Total Protein (6.4-8.2) gm/dl Albumin (3.4-5.0) gm/dl Globulin (2.5-4.0) gm/dl Albumin/Globulin Ratio (0.9-2) Urine Color Urine Appearance (Clear) Urine pH (4.5-7.5) Ur Specific [place] (1.000-1.030) Urine Protein (Negative) Urine Glucose (UA) (Negative) Urine Ketones (Negative) Urine Blood (Negative) Urine Nitrite (Negative) Urine Bilirubin (Negative) Urine Urobilinogen (Negative) Ur Leukocyte Esterase (Negative) Urine WBC (Auto) (0-5) /hpf Urine RBC (Auto) (0-4) /hpf U Hyaline Cast (Auto) (0-5) /lpf U Epithel Cells (Auto) (0-5) /lpf Urine Bacteria (Auto) (Negative) Blood Type Antibody Screen 04/07/19 04/07/19 04/07/19 Range/Units 11:03 11:03 11:10 WBC (4.8-10.8) K/uL RBC (4.2-5.4) M/uL Hgb (12.0-16.0) g/dL Hct (37-47) % MCV (80-100) fL MCH (25-34) pg MCHC (32-36) g/dL RDW Std Deviation (36.4-46.3) fL RDW Coeff of Tatyana (11.5-14.5) % Plt Count (130-400) K/uL MPV (7.4-10.4) fL Immature Gran % (Auto) % Neut % (Auto) % Lymph % (Auto) % [place] % (Auto) % Eos % (Auto) % Baso % (Auto) % Immature Gran # (Auto) (0.00-0.02) K/uL Neut # (Auto) (1.4-6.5) K/uL Lymph # (Auto) (1.2-3.4) K/uL [place] # (Auto) (0.11-0.59) K/uL Eos # (Auto) (0-0.5) K/uL Baso # (Auto) (0-0.2) K/uL PT INR APTT PTT Ratio Sodium 142 (136-145) mmol/L Potassium (3.5-5.1) mmol/L Chloride 112 H (98-107) mmol/L Carbon Dioxide 25 (21-32) mmol/L Anion Gap 6.0 (3-11) BUN 35 H (7-18) mg/dl Creatinine 0.91 (0.6-1.2) mg/dl Est Cr Clr Drug Dosing 63.1 ml/min Est GFR ( Amer) 72.5 Est GFR (Non-Af Amer) 62.6 BUN/Creatinine Ratio 38.8 H (10-20) Glucose 103 H (70-99) mg/dl POC Glucose (70-99) Calcium 9.4 (8.5-10.1) mg/dl Magnesium (1.8-2.4) mg/dl Total Bilirubin 1.0 (0.2-1) mg/dl AST (15-37) U/L ALT 35 (12-78) U/L Alkaline Phosphatase 116 (45-117) U/L Troponin I 0.034 (0-0.045) ng/ml Total Protein 7.0 (6.4-8.2) gm/dl Albumin 3.8 (3.4-5.0) gm/dl Globulin 3.2 (2.5-4.0) gm/dl Albumin/Globulin Ratio 1.2 (0.9-2) Urine Color Yellow Urine Appearance Cloudy A (Clear) Urine pH 6.5 (4.5-7.5) Ur Specific [place] 1.020 (1.000-1.030) Urine Protein 1+ H (Negative) Urine Glucose (UA) Negative (Negative) Urine Ketones Negative (Negative) Urine Blood 3+ H (Negative) Urine Nitrite Positive A (Negative) Urine Bilirubin Negative (Negative) Urine Urobilinogen Negative (Negative) Ur Leukocyte Esterase 2+ H (Negative) Urine WBC (Auto) >30 H (0-5) /hpf Urine RBC (Auto) >30 H (0-4) /hpf U Hyaline Cast (Auto) 1-5 (0-5) /lpf U Epithel Cells (Auto) 5-10 H (0-5) /lpf Urine Bacteria (Auto) 4+ H (Negative) Blood Type Cancelled Antibody Screen Cancelled 04/07/19 04/07/19 04/07/19 Range/Units 12:16 12:16 12:16 WBC (4.8-10.8) K/uL RBC (4.2-5.4) M/uL Hgb (12.0-16.0) g/dL Hct (37-47) % MCV (80-100) fL MCH (25-34) pg MCHC (32-36) g/dL RDW Std Deviation (36.4-46.3) fL RDW Coeff of Tatyana (11.5-14.5) % Plt Count (130-400) K/uL MPV (7.4-10.4) fL Immature Gran % (Auto) % Neut % (Auto) % Lymph % (Auto) % [place] % (Auto) % Eos % (Auto) % Baso % (Auto) % Immature Gran # (Auto) (0.00-0.02) K/uL Neut # (Auto) (1.4-6.5) K/uL Lymph # (Auto) (1.2-3.4) K/uL [place] # (Auto) (0.11-0.59) K/uL Eos # (Auto) (0-0.5) K/uL Baso # (Auto) (0-0.2) K/uL PT 11.4 INR 1.1 APTT 22.5 PTT Ratio 0.8 Sodium (136-145) mmol/L Potassium 4.2 (3.5-5.1) mmol/L Chloride (98-107) mmol/L Carbon Dioxide (21-32) mmol/L Anion Gap (3-11) BUN (7-18) mg/dl Creatinine (0.6-1.2) mg/dl Est Cr Clr Drug Dosing ml/min Est GFR ( Amer) Est GFR (Non-Af Amer) BUN/Creatinine Ratio (10-20) Glucose (70-99) mg/dl POC Glucose (70-99) Calcium (8.5-10.1) mg/dl Magnesium 2.4 (1.8-2.4) mg/dl Total Bilirubin (0.2-1) mg/dl AST 22 (15-37) U/L ALT (12-78) U/L Alkaline Phosphatase (45-117) U/L Troponin I (0-0.045) ng/ml Total Protein (6.4-8.2) gm/dl Albumin (3.4-5.0) gm/dl Globulin (2.5-4.0) gm/dl Albumin/Globulin Ratio (0.9-2) Urine Color Urine Appearance (Clear) Urine pH (4.5-7.5) Ur Specific [place] (1.000-1.030) Urine Protein (Negative) Urine Glucose (UA) (Negative) Urine Ketones (Negative) Urine Blood (Negative) Urine Nitrite (Negative) Urine Bilirubin (Negative) Urine Urobilinogen (Negative) Ur Leukocyte Esterase (Negative) Urine WBC (Auto) (0-5) /hpf Urine RBC (Auto) (0-4) /hpf U Hyaline Cast (Auto) (0-5) /lpf U Epithel Cells (Auto) (0-5) /lpf Urine Bacteria (Auto) (Negative) Blood Type O Positive Antibody Screen NEGATIVE Imaging Data Radiologist's Impression: Radiology results as stated below per my review and the radiologist's interpretation: CT OF THE HEAD WITHOUT CONTRAST CLINICAL HISTORY: Stroke evaluation. COMPARISON STUDY: MRI of the brain April 11, 2019. TECHNIQUE: Helical axial images of the head were obtained without IV contrast. Automated exposure control was utilized for the study. A dose lowering technique was utilized adhering to the principles of ALARA. FINDINGS: No acute intracranial hemorrhage, midline shift or mass effect is present. The ventricular system is unremarkable. The basilar cisterns are patent. No extra-axial collections are present. There are no findings to suggest acute dural sinus thrombosis or acute territorial infarct. No significant calvarial abnormalities are present. Visualized portions of the sinuses and mast oid air cells are clear. White matter hypodensity suggests small vessel disease. A left frontotemporal craniotomy is noted. IMPRESSION: 1. No acute intracranial findings. 2. Moderate white matter hypodensities which favor small vessel disease. 3. Status post left frontotemporal craniotomy. Electronically signed by: Dharmesh Booth M.D. 04/07/2019 11:[address] OF THE LUMBAR SPINE CLINICAL HISTORY: Bilateral leg numbness. COMPARISON STUDY: Lumbar spine radiographs February 16, 2014. TECHNIQUE: Helical axial images of the lumbar spine were obtained. Sagittal and coronal reconstructions were viewed. Automated exposure control was utilized for the study. A dose lowering technique was utilized adhering to the principles of ALARA. FINDINGS: For purposes of numbering on this exam, the L5-S1 disc space is assigned to axial image 271 of 325. There is minimal curvature of the lumbar spine. Note is made of a 7 mm of retrolisthesis of L2 and L3, 5 mm of retrolisthesis of L3 on L4 and mild anterolisthesis of L4 and L5. No acute fractures present. There is no suspicious osseous lesion. Severe multilevel disc space narrowing and osteophytosis is noted with multiple the level vacuum disc phenomenon. L4-L5 posterior decompression is noted. Trace bilateral pleural effusions are noted. Bilateral adrenal nodules are unchanged since treatment planning CT of April 04, 2018. These reflect adenomas. Central canal and neural foramen are suboptimally assessed by CT. However, there is suspected severe central canal stenosis at L3-L4 and mild to moderate narrowing at L2-L3 and L4-L5. Altered level facet arthrosis is also noted, most pronounced at the L3-L4 level. Sacroiliac joints are intact. IMPRESSION: 1. No acute lumbar spine fracture or subluxation. 2. Status post L4-L5 posterior decompression. 3. Severe multilevel degenerative changes within the lumbar spine. Suboptimal evaluation of the central canal and neural foramen given CT technique however suspected severe central canal stenosis at L3-L4 and mild to moderate central canal stenosis at L2-L3 and L4-L5. Multilevel neural foraminal stenosis, most pronounced at L3-L4. Electronically signed by: Dharmesh Booth M.D. 04/07/2019 11:[address] pelvis wo con CLINICAL HISTORY: Right hip pain. COMPARISON STUDY: No previous studies for comparison. TECHNIQUE: Axial images of the pelvis and hips were obtained without IV contr ast. Sagittal and coronal reconstructions were viewed. Automated exposure control was utilized for the study. A dose lowering technique was utilized adhering to the principles of ALARA. FINDINGS: Sacroiliac joints and symphysis pubis are intact. No acute fracture within the pelvis or hips is noted. Severe right hip osteophytosis noted with extensive subchondral cystic change and osteophytosis. There is flattening of the right femoral head. A right hip joint effusion is present. Several suspected fibroids measure up to 4.5 cm. There is no pelvic lymphadenopathy. There is no pelvic hematoma. No suspicious osseous lesions are noted. Postoperative findings within the lumbar spine are better depicted on the lumbar spine CT. Mild bladder wall thickening is accentuated by underdistention. IMPRESSION: 1. No acute fracture within the pelvis or hips. 2. Severe right hip osteoarthritis with joint space narrowing and extensive subchondral cystic change and sclerosis with osteophytosis. Flattening of the right femoral head. Nonspecific moderate to large right hip joint effusion. Electronically signed by: Dharmesh Booth M.D. 04/07/2019 12:07 PM ECG Data Attestation: I personally reviewed and interpreted this ECG as follows: Indication: weakness Rate (beats per minute): 69 Rhythm: atrial fibrillation Findings: + other (normal ARS); no acute ischemic change Comparison ECG Date: from (01/03/18) Change: no significant change Blood Pressure Blood Pressure Findings: Elevated blood pressure Blood Pressure Disposition: further management by hospitalist [facility] Narrative This patient comes in as described above. She was placed in room A11. She comes in with lower extremity weakness and numbness bilaterally. She has had significant right leg pain and weakness secondary to severe arthritis of the hip. She is in fact scheduled to have surgery on that hip on April 16. She woke up today and had a hard time getting out of bed. she said she felt weak and tingling in both of her legs but had continued pain in her right leg. she has a history of spinal stenosis for which she has had surgery in the past as well. She denies any dysuria or hematuria. No fall or trauma. She has no numbness or weakness of the arms or face. No difficulty speaking or swallowing. IV access established multiple blood testing was obtained. I did use the stroke order set however her symptoms are bilateral and I do not think she had a CVA. Additionally, she is well outside the window for TPA she woke up with the symptoms. Her right hip is not red or swollen. CAT scan of the head was unremarkable. CAT scan of the lumbar spine shows severe spinal stenosis without any acute fractures. CAT scan of the hip shows severe degenerative changes with a joint effusion. She has no significant electrolyte or metabolic abnormalities. Urinalysis does suggest UTI. She was given IV Zosyn, she tells me she is done okay with penicillin before and look into the record she said IV Zosyn. She has had urinary tract infections before and the most recent one was fairly resistant to several antibiotics. I think that her weakness is a co mbination of the pain in her right leg from her hip, her spinal stenosis and a UTI. At this point, she cannot go home like this. I do think she needs to be admitted/observed and we did consult the [facility] hospitalist to see her for these measures. Impression & Plan Weakness, Spinal stenosis, UTI (urinary tract infection), Hip pain, right Discharge Plan Visit Data Chief Complaint: Leg Weakness, Bilateral Stated Complaint: weakness ED Provider: Scar Allen Discharge Problem: Weakness, Spinal stenosis, UTI (urinary tract infection), Hip pain, right Patient Disposition: Admitted As Inpatient Discharge Instructions Interventions: ED Discharge Assessment Last Done: 04/07/19 14:58 Discharge Problem: Spinal stenosis Qualifiers: Spinal region: lumbar Neurogenic claudication status: unspecified Qualified Code(s): M48.061 - Spinal stenosis, lumbar region without neurogenic cl audication UTI (urinary tract infection) Qualifiers: Urinary tract infection type: site unspecified Hematuria presence: without hematuria Qualified Code(s): N39.0 - Urinary tract infection, site not specified The scribe's documentation has been prepared under my direction and personally reviewed by me in its entirety. I confirm that the note above accurately reflects all work, treatment, procedures, and medical decision making performed by me.
[2019-04-07] MEDS ORDERED: ACETAMINOPHEN 325 MG TAB PO PRN (15:48)
[2019-04-07 15:55] LABS: Thyroid Stimulating Hormone 1.64 uIu/ml (0.300-4.500)
[2019-04-07] MEDS: PIPERACILLIN/TAZOBACTAM 4.5 GM in DEXTROSE 5% 100 ML IV SCH (17:32)
[2019-04-07] MEDS: TRAMADOL HCL 50 MG TABLET PO PRN (18:22)
[2019-04-07] MEDS: ASPIRIN 81 MG ECTAB PO SCH (19:17)
[2019-04-07] MEDS: GABAPENTIN 100 MG CAP PO SCH (19:17)
[2019-04-07] MEDS: TIZANIDINE HCL 4 MG TABLET PO SCH (19:18)
[2019-04-07] MEDS: CALCIUM 600MG + VIT D 400 IU TAB PO SCH (19:18)
[2019-04-07] MEDS: METOPROLOL TARTRATE 25 MG TAB PO SCH (19:18)
[2019-04-07] MEDS: DICLOFENAC SODIUM 75 MG TABCR PO SCH (19:19)
--- NOTE | 2019-04-07 20:31 | Ultrasound Report ---
BILATERAL LOWER EXTREMITY VENOUS DOPPLER CLINICAL HISTORY: Bilateral lower extremity edema. COMPARISON STUDY: Left lower extremity venous Doppler ultrasound October 06, 2018. TECHNIQUE: Sonography of the deep venous system of the bilateral lower extremities was performed. Co mpression and augmentation were evaluated. FINDINGS: The bilateral common femoral, superficial femoral and popliteal veins were compressible. A ugmentation was normal. Flow was shown within the deep calf vessels although calf vessels were subopt imally assessed due to lower extremity edema with suboptimal penetration. IMPRESSION: No evidence of deep venous thrombus within the bilateral lower extremities. Electronically signed by: Dharmesh Booth M.D. 04/07/2019 8:30 PM
[2019-04-08] MEDS: PIPERACILLIN/TAZOBACTAM 4.5 GM in DEXTROSE 5% 100 ML IV SCH ×3 (03:13→17:35)
[2019-04-08 06:16] LABS: Basophils # (auto) 0.02 K/uL (0-0.2); Basophils % (auto) 0.3 %; Eosinophils # (auto) 0.12 K/uL (0-0.5); Eosinophils % (auto) 1.8 %; Hematocrit (blood only) 37.4 % (37-47); Hemoglobin 11.5 g/dL (12.0-16.0); Immature Granulocytes # (auto) 0.01 K/uL (0.00-0.02); Immature Granulocytes % (auto) 0.1 %; Lymphocytes # (auto) 1.72 K/uL (1.2-3.4); Lymphocytes % (auto) 25.7 %; Mean Corpuscular Hemoglobin 29.5 pg (25-34); Mean Corpuscular Hgb Conc 30.7 g/dL (32-36); Mean Corpuscular Volume 95.9 fL (80-100); Mean Platelet Volume 10.6 fL (7.4-10.4); Monocytes % (auto) 10.5 %; Neutrophils # (auto) 4.12 K/uL (1.4-6.5); Neutrophils % (auto) 61.6 %; Platelet Count 129 K/uL (130-400); RDW Coefficient of Variation 14.7 % (11.5-14.5); RDW Standard Deviation 51.3 fL (36.4-46.3); White Blood Count 6.69 K/uL (4.8-10.8)
[2019-04-08] MEDS: TRAMADOL HCL 50 MG TABLET PO PRN (06:37)
[2019-04-08 06:41] LABS: Albumin Level 3.1 gm/dl (3.4-5.0); Calcium 8.6 mg/dl (8.5-10.1); Creatinine Clr Calc Pharmacy 63.1 ml/min; Est GFR (African American) 68.9; Est GFR (Non-African American) 59.4; Potassium 4.3 mmol/L (3.5-5.1)
[2019-04-08 06:54] LABS: Albumin Globulin Ratio 1.2 (0.9-2); Bilirubin,Total 0.9 mg/dl (0.2-1); Globulin 2.7 gm/dl (2.5-4.0); Total Protein 5.8 gm/dl (6.4-8.2)
[2019-04-08] MEDS: MULTIVITAMIN TAB PO SCH (08:52)
[2019-04-08] MEDS: DICLOFENAC SODIUM 75 MG TABCR PO SCH ×2 (08:52→20:49)
[2019-04-08] MEDS: FUROSEMIDE 40 MG TAB PO SCH (08:53)
[2019-04-08] MEDS: CALCIUM 600MG + VIT D 400 IU TAB PO SCH ×2 (08:53→20:49)
[2019-04-08] MEDS: lisinopriL 40 MG TAB PO SCH (08:53)
[2019-04-08] MEDS: GABAPENTIN 100 MG CAP PO SCH ×2 (08:53→20:49)
[2019-04-08] MEDS: METOPROLOL TARTRATE 25 MG TAB PO SCH ×2 (08:53→20:50)
[2019-04-08] MEDS: OXYCODONE/ACETAMINOPHEN 5mg/325mg TAB PO PRN ×2 (08:56→20:48)
--- NOTE | 2019-04-08 09:49 | Hospitalist Progress Note ---
Date of Service April 08, 2019 Assessment & Plan (1) UTI (urinary tract infection): Patient was started on Zosyn in the emergency room. Urine culture is growing gram-negative rods, will continue this until results obtained. I would like to get an ultrasound of the kidneys as the patient seems to have multiple episodes of pyuria as noted in her previous lab work. (2) Hip pain, right: Right hip pain with effusion. No obvious signs of septic arthritis but with effusion cannot be ruled out completely. Orthopedics to evaluate. Consideration to moving her hip arthroplasty as the patient can no longer ambulate and infection is been definitively ruled out. (3) Spinal stenosis: Patient has chronic lower extremity sensory deficits due to previous lumbar spinal stenosis. She says this is improved slowly over time. She will need PT/OT prior to discharge. She is known to spinal orthopedics and other service was consulted for further recommendations. (4) Atrial fibrillation: Paroxysmal; Pt Is not anticoagulated due to fall risk and possibly prior meningioma. Cont metoprolol for rate control. Okay to transfer to medical telemetry out of PCU. (5) Hyperlipidemia: (6) Hypertension: Blood pressure is improved today. Continue medications as ordered. May improve with treatment of her pain. 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 No issues at this visit. Subjective Patient is awake and alert. She is complaining of pain in her right hip which has worsened as she has been moving around in bed. She typically follows with orthopedics and was in fact scheduled for a total hip arthroplasty on 04/16. She feels that her symptoms worsened considerably at home which prompted her hospitalization. Patient denies any fever or chills as well as any chest pain, shortness of breath, or urinary complaints. 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 Review of Systems Review of Systems: All systems reviewed & are unremarkable except as noted in HPI & below Physical Exam Physical Exam: GENERAL: Non-toxic in appearance. INTEGUMENTARY: Warm, dry, and [place]. HEAD: Normocephalic. EYES: without scleral icterus or trauma. ENT/OROPHARYNX: clear and moist. LYMPHADENOPATHY/NECK: Is supple without lymphadenopathy or meningismus. RESPIRATORY: Lungs clear and equal. Limited exam. CARDIOVASCULAR: Regular rate and rhythm. GI/ABDOMEN: Soft and nontender. No organomegaly or pulsatile mass. No rebound or guarding. Normal bowel sounds. EXTREMITIES: Warm and well perfused. Good distal pulses. Some subjective tenderness with palpation of the right lateral hip. No overt skin changes or edema noted. BACK: No CVA tenderness. NEUROLOGICAL: Intact without focal deficits. PSYCHIATRIC: normal affect. MUSCULOSKELETAL: Normally developed with good muscle tone. Results & Data Vital Signs (Past 12 Hours) Vital Signs Temp Pulse Resp BP Pulse Ox 04/08/19 07:10 36.5 C 63 16 141/83 H 95 04/08/19 03:13 36.5 C 63 16 149/73 H 97 04/07/19 23:04 36.4 C L 63 16 130/75 95 PG Care Time/CCT Total # of Minutes Spent Total Time Spent with Patient: Total time spent is greater than 50% in coordination of care (as documented) at patient's floor/unit and/or counseling patient: (1) UTI (urinary tract infection) Hematuria presence: without hematuria Urinary tract infection type: site unspecified Qualified Code(s): N39.0 - Urinary tract infection, site not specified (2) Spinal stenosis Neurogenic claudication status: unspecified Spinal region: lumbar Qualified Code(s): M48.061 - Spinal stenosis, lumbar region without neurogenic claudication
[2019-04-08] MEDS ORDERED: HYDROmorphone INJ 0.5 MG/0.5 ML SYR IV PRN (09:51)
[2019-04-08] MEDS: ENOXAPARIN INJ 40 MG/0.4 ML SYR SQ SCH (10:34)
[2019-04-08] MEDS ORDERED: [UNRECOGNIZED DRUG - OTHER] PO SCH (11:30)
--- NOTE | 2019-04-08 11:46 | CT Scan Report ---
CT abd pelvis wo con CT DOSE: 656.62 mGy.cm HISTORY: recurrent UTI TECHNIQUE: Multiaxial CT images of the abdomen and pelvis were performed without contrast. A dose lo wering technique was utilized adhering to the principles of ALARA. COMPARISON STUDY: 04/07/2019 FINDINGS: Small left pleural effusion. Minimal bibasilar atelectasis. Liver spleen and pancreas are unremarkable. Gallbladder is moderately contracted. May be a small gall stone. Kidneys negative for hydronephrosis. Abdominal bowel pattern is considered nonobstructive. Uterus is anteflexed. Several uterine fibroids measuring up to 5 cm. Severe degenerative changes right hip. Evidence for small joint effusion. Extensive subchondral cysti c formation of the femoral head and neck. These findings are similar compared to the prior study. IMPRESSION: 1. Severe degenerative change right hip unchanged from the prior exam. 2. Small left pleural effusion. 3. Small gallstone 4. Severe degenerative change lumbar spine. The above report was generated using voice recognition software. It may contain grammatical, syntax or spelling errors. Electronically signed by: Rajinder Mariano M.D. 04/08/2019 11:45 AM
[2019-04-08] MEDS: TIZANIDINE HCL 4 MG TABLET PO SCH (20:50)
[2019-04-08] MEDS: ASPIRIN 81 MG ECTAB PO SCH (20:51)
--- NOTE | 2019-04-08 21:49 | Consultation Report ---
DATE OF CONSULTATION: 04/08/2019 PERTINENT HISTORY: This is a 74-year-old female seen at the request of Dr. Clive Mercado and Dr. Herb Wilkinson for right hip pain with possibility of septic arthritis. Apparently, the patient was in her usual state of health and has been scheduled for total hip replacement by Dr. Lucas on 04/16/2019; however, she reported feeling weak and not being able to stand up on her feet. She states she was trying to get out of bed and after half an hour, she felt she was not able to because her feet were just not following directions. She felt weakness in both of her lower extremities. She did not have a fall. She has had chronic difficulty with her right hip over the last year which has been worsening. No fever or chills. She presented to the Emergency Department, was noted to have urinary tract infection and was then admitted to the hospitalist service. PAST MEDICAL HISTORY: Peripheral neuropathy, atrial fibrillation, hyperlipidemia, hypertension, seizure disorder, stress incontinence, osteoarthritis, degenerative joint disease, history of deep venous thrombosis over 20 years ago, gastroesophageal reflux disease, spinal stenosis with neuropathy, benign meningioma, Raynaud disease, chronic obstructive pulmonary disease, lumbar spinal stenosis, dizziness, hearing deficits, heart valve regurgitation, breast cancer and recent falls. PAST SURGICAL HISTORY: Craniotomy with resection of meningioma in 2017, lumbar laminectomy, bilateral total knee replacement, right total shoulder replacement, right ankle fusion, lumpectomy of the left breast, breast biopsy, ovarian cystectomy and repair of hiatal hernia. ALLERGIES: CEPHALEXIN, SHE HAS HIVES. STRAWBERRIES, HIVES. DIAL SOAP, SHE HAS A RASH. MEDICATIONS: Please refer to the medical record for medications. SOCIAL HISTORY: She is . She lives with her spouse. 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 She quit smoking 25 years ago. Denies alcohol or drug use. PHYSICAL EXAMINATION: GENERAL: This is a 74-year-old woman who is lying supine in her hospital room bed. She is alert and oriented x3. Speech, clear and fluent. Affect is appropriate. EXTREMITIES: Examination of the bilateral hips demonstrates irritability of the right hip with any active or passive range of motion. She has tenderness in the right groin. No erythema. No induration. No drainage. No scars ulcers or rashes in the lower extremities. She has significant lymphedema in bilateral lower extremities with venous insufficiency changes and bilateral DENILSON hose stockings in place. Dorsalis pedis and posterior tibial pulses are palpable bilaterally. Feet are warm. She has a positive BETSEY and a positive FADIR test of the right hip. Limited range of motion due to pain and guarding. Intermittent crepitation is palpated. RADIOGRAPHS: CT scan reviewed of the right hip demonstrates severe degenerative arthritis with complete loss of joint space, marginal osteophytes, subchondral sclerosis and some fragmentation of the femoral head. Some shortening of the right limb compared to the left. There was a significant effusion of the right hip, likely related to osteoarthritis; however, cannot rule out infectious etiology. IMPRESSION: 1. Right hip severe degenerative joint disease. 2. Right hip osteoarthritis. 3. Right hip effusion, possible septic effusion. 4. Urinary tract infection. RECOMMENDATIONS: CT guided needle aspiration of the right hip effusion with aerobic, anaerobic, Gram stain, cultures and cell count with manual differential. Maintain limited weightbearing and limited transfers due to pain and guarding. Treatment of urinary tract infection as per medical service. We will follow with you. We will also notify Dr. Lucas, the patient has been admitted for her current complaints. Thank you for the opportunity to consult in the care of this patient.
[2019-04-09] MEDS: PIPERACILLIN/TAZOBACTAM 4.5 GM in DEXTROSE 5% 100 ML IV SCH ×2 (01:40→09:57)
[2019-04-09 06:26] LABS: Basophils # (auto) 0.01 K/uL (0-0.2); Basophils % (auto) 0.1 %; Eosinophils # (auto) 0.09 K/uL (0-0.5); Eosinophils % (auto) 1.3 %; Immature Granulocytes # (auto) 0.01 K/uL (0.00-0.02); Immature Granulocytes % (auto) 0.1 %; Lymphocytes # (auto) 1.58 K/uL (1.2-3.4); Lymphocytes % (auto) 23.2 %; Mean Corpuscular Hemoglobin 29.4 pg (25-34); Mean Corpuscular Hgb Conc 30.6 g/dL (32-36); Mean Corpuscular Volume 96.3 fL (80-100); Mean Platelet Volume 10.6 fL (7.4-10.4); Monocytes # (auto) 0.74 K/uL (0.11-0.59); Monocytes % (auto) 10.9 %; Neutrophils # (auto) 4.38 K/uL (1.4-6.5); Neutrophils % (auto) 64.4 %; Platelet Count 128 K/uL (130-400); RDW Coefficient of Variation 14.6 % (11.5-14.5); RDW Standard Deviation 51.6 fL (36.4-46.3); Red Blood Count 3.74 M/uL (4.2-5.4); White Blood Count 6.81 K/uL (4.8-10.8)
[2019-04-09 07:01] LABS: BUN Creatinine Ratio 25.1 (10-20); Calcium 8.7 mg/dl (8.5-10.1); Creatinine Clr Calc Pharmacy 47.5 ml/min; Est GFR (African American) 48.5; Est GFR (Non-African American) 41.8; Potassium 4.2 mmol/L (3.5-5.1)
[2019-04-09 07:04] LABS: Albumin Globulin Ratio 1.1 (0.9-2); Bilirubin,Total 0.8 mg/dl (0.2-1); Globulin 2.7 gm/dl (2.5-4.0); Total Protein 5.7 gm/dl (6.4-8.2)
[2019-04-09] MEDS: DICLOFENAC SODIUM 75 MG TABCR PO SCH ×2 (08:31→21:51)
[2019-04-09] MEDS: GABAPENTIN 100 MG CAP PO SCH ×2 (08:31→21:52)
[2019-04-09] MEDS: lisinopriL 40 MG TAB PO SCH (08:31)
[2019-04-09] MEDS: HydrALAZINE 10 MG TAB PO PRN (08:31)
[2019-04-09] MEDS: METOPROLOL TARTRATE 25 MG TAB PO SCH ×2 (08:32→21:51)
[2019-04-09] MEDS: ENOXAPARIN INJ 40 MG/0.4 ML SYR SQ SCH (08:32)
[2019-04-09] MEDS: MULTIVITAMIN TAB PO SCH (08:32)
[2019-04-09] MEDS: CALCIUM 600MG + VIT D 400 IU TAB PO SCH ×2 (08:32→21:52)
[2019-04-09] MEDS: FUROSEMIDE 40 MG TAB PO SCH (08:32)
[2019-04-09] MEDS: OXYCODONE/ACETAMINOPHEN 5mg/325mg TAB PO PRN (10:01)
--- NOTE | 2019-04-09 10:11 | Fluoroscopy Report ---
FLUOROSCOPICALLY GUIDED RIGHT HIP JOINT ASPIRATION CLINICAL HISTORY: aspiration right hip joint r/o infection COMPARISON STUDY: CT of the abdomen and pelvis April 08, 2019. FLUOROSCOPY TIME: 0.2 minutes. FLUOROSCOPIC IMAGES: 1. PROCEDURE: The procedure, risks and benefits were discussed with the patient including the risk of bl eeding, infection and injury to adjacent structures. The patient agreed to the procedure and informed written consent was obtained. The procedure was performed by Dr. Booth following a timeout. Skin overlying the right hip joint was prepped and draped in sterile fashion and local anesthesia was ach ieved with 1% lidocaine. Fluoroscopy demonstrated severe right hip osteoarthritis. Under intermittent fluoroscopic guidance, a 3 1/2 inch 20-gauge needle was directed into the right hip joint. There was immediate return of serosanguineous joint fluid. 19 cc was aspirated and sent to laboratory as order ed. The needle was removed. The patient tolerated the procedure well and no immediate complications w ere evident. IMPRESSION: Successful fluoroscopically guided right hip joint aspiration with collection of 19 cc o f serosanguineous joint fluid which was sent to laboratory for analysis. Electronically signed by: Dharmesh Booth M.D. 04/09/2019 10:10 AM
[2019-04-09] MEDS: TRAMADOL HCL 50 MG TABLET PO PRN (13:01)
--- NOTE | 2019-04-09 13:05 | History and Physical Report ---
DATE OF ADMISSION: 04/07/2019 REASON FOR CONSULTATION: Spinal stenosis, lumbar spine. HISTORY OF PRESENT ILLNESS: Valorie is 74 years old. I saw her on rounds on today's date around 12:30 p.m. She has spinal stenosis of the spine, but she has more significant issues. Dr. Morris had seen her with a workup of possibility of a septic hip. She does have difficulty with ambulation, difficulty standing. She has some claudication. She have some weakness as well and weakness in both lower extremities. She did not unfortunately fall. She denies any fevers, sweats or chills. PAST MEDICAL HISTORY: Positive for AFib, hypertension, seizure, incontinence, GI reflux, spinal stenosis, among other issues. PAST SURGICAL HISTORY: Craniotomy, laminectomy, bilateral total knees, right shoulder. ALLERGIES: CEPHALEXIN. MEDICATIONS: Numerous. Please refer to her medical record. OBJECTIVE: GENERAL: She is alert, oriented. A patient here. She seems pleasant. Speech clear. Does not seem inappropriate nor confused. VITAL SIGNS: Stable. She is afebrile. Skin is broken down on the heels. She has ulceration and significant edema. NEUROLOGIC: She has diminished reflexes and diminished strength to lower extremities. IMAGES: Reviewed. She has multifactorial stenosis, spondylolisthesis, facet arthritis. IMPRESSION: Delightful patient 74 years old, with multiple comorbidities, possibility of degenerative septic hip on the right along with spinal stenosis from an orthopedic standpoint. PLAN: She would not at all be a surgical candidate, had back away from surgical intervention whatsoever. Unfortunately, is a difficult problem. She has basically will be a rehab wheelchair type patient in my opinion. I am optimistic that hip replacement will help her coming up next week, but she might not be medically stable. EMILY
--- NOTE | 2019-04-09 14:58 | Hospitalist Progress Note ---
Date of Service April 09, 2019 Assessment & Plan (1) UTI (urinary tract infection): Patient was started on Zosyn in the emergency room. Urine culture is growing Klebsiella, ruelas sensitive will change to Augmentin, afebrile, WBC normal, no symptoms (2) Hip pain, right: Right hip pain with effusion. No obvious signs of septic arthritis but with effusion cannot be ruled out completely CT guided arthrocentesis done 04/09 by radiology, 19cc fluid sent for culture follow up results tentatively planning for SELWYN with Dr. Lucas on 04/16, he will be notified of patient being here (3) Spinal stenosis: Patient has chronic lower extremity sensory deficits due to previous lumbar spinal stenosis. She says this is improved slowly over time PT/OT evaluations consult from Dr. Doss, he would not recommend surgery (4) Atrial fibrillation: Paroxysmal; Pt Is not anticoagulated due to fall risk and possibly prior meningioma. Cont metoprolol for rate control (5) Hyperlipidemia: statin therapy (6) Hypertension: Blood pressure is improved today. Continue medications as ordered. May improve with treatment of her pain. 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 No issues at this visit. Subjective patient in some discomfort this morning, all with her right hip and right lower back moving around in bed a lot tolerated hip aspiration this morning eating okay, breathing is stable, no chest pain appreciate note from Dr. Morris as well as consultation from Dr. Doss labs show WBC 6.8, Hb 11, Cr up very slightly at 1.27 d/w pharmacy about treating Klebsiella UTI that is ruelas sensitive will transition to Augmentin Review of Systems Review of Systems: All systems reviewed & are unremarkable except as noted in HPI & below Constitutional: + fatigue and + weakness; no fever, no chills and no sweats Cardiovascular: no chest pain and no edema Gastrointestinal: no abdominal pain, no nausea, no vomiting, no constipation and no diarrhea/loose stools Musculoskeletal: + back pain (severe, right sided), + joint pain (right hip, severe), + limited range of motion, + myalgia and + muscle weakness Physical Exam Constitutional: WD/WN, vitals as above + in distress (mild, due to pain in right hip/back) Eyes: PERRL, conjunctivae normal, anicteric sclerae ENMT: external ear and nose normal, oropharynx normal Neck: trachea midline, no thyromegaly Respiratory: normal respiratory effort, lungs clear to auscultation Cardiovascular: RRR, no murmur, no edema Gastrointestinal (Abdomen): normal bowel sounds, soft, nontender, no hepatosplenomegaly Musculoskeletal: Head/Neck/Chest: normocephalic and head atraumatic Extremities: extremities normal to inspection, + limited ROM of extremities (low back right hip due to severe pain) and strength 5/5 throughout; no cyanosis and no clubbing Skin: no rashes, warm and dry Neurologic: patellar DTR's 2+ bilat, sensation intact and PERRL, EOMI, accommodation nl, no face palsy, no dysarthria Psychiatric: A+Ox3, euthymic affect Lymphatic: no cervical or axillary lymphadenopathy Results & Data Vital Signs (Past 12 Hours) Vital Signs Temp Pulse Pulse Resp BP BP Pulse Ox 04/09/19 07:34 36.3 C L 94 H 16 176/73 H 93 04/09/19 07:17 62 04/09/19 03:00 36.4 C L 63 20 141/72 H 93 Laboratory Results Laboratory Results - last 24 hr 04/09/19 04/09/19 06:10 06:10 WBC 6.81 RBC 3.74 L Hgb 11.0 L Hct 36.0 L MCV 96.3 MCH 29.4 MCHC 30.6 L RDW Std Deviation 51.6 H RDW Coeff of Tatyana 14.6 H Plt Count 128 L MPV 10.6 H Immature Gran % (Auto) 0.1 Neut % (Auto) 64.4 Lymph % (Auto) 23.2 [place] % (Auto) 10.9 Eos % (Auto) 1.3 Baso % (Auto) 0.1 Immature Gran # (Auto) 0.01 Neut # (Auto) 4.38 Lymph # (Auto) 1.58 [place] # (Auto) 0.74 H Eos # (Auto) 0.09 Baso # (Auto) 0.01 Sodium 140 Potassium 4.2 Chloride 107 Carbon Dioxide 26 Anion Gap 7.0 BUN 32 H Creatinine 1.27 H D Est Cr Clr Drug Dosing 47.5 Est GFR ( Amer) 48.5 Est GFR (Non-Af Amer) 41.8 BUN/Creatinine Ratio 25.1 H Glucose 99 Calcium 8.7 Total Bilirubin 0.8 AST 16 ALT 26 Alkaline Phosphatase 100 Total Protein 5.7 L Albumin 3.0 L Globulin 2.7 Albumin/Globulin Ratio 1.1 Medications Administered Current Inpatient Medications Acetaminophen (Tylenol) 650 mg PO Q4H PRN PRN Reason: Pain or Fever Stop: 05/07/19 15:20 Al Hydrox/Mg Hydrox/Simethicone (Maalox) 15 ml PO Q4H PRN PRN Reason: Dyspepsia Stop: 05/07/19 15:20 Albuterol (Ventolin Hfa) 2 puffs INH Q6H PRN PRN Reason: Wheezing Stop: 05/07/19 15:20 Amoxicillin/Clavulanate Potassium (Augmentin 875mg) 1 tab PO BIDM [facility] Stop: 04/19/19 16:59 Aspirin (Ecotrin Ectab) 81 mg PO QPM [facility] Stop: 05/07/19 20:59 Last Admin: 04/08/19 20:51 Dose: 81 mg Documented by: Diclofenac Sodium (Voltaren) 75 mg PO BID [facility] Stop: 05/07/19 20:59 Last Admin: 04/09/19 08:31 Dose: 75 mg Documented by: Enoxaparin Sodium (Lovenox) 40 mg SQ QAM [facility] Stop: 05/08/19 10:14 Last Admin: 04/09/19 08:32 Dose: 40 mg Documented by: Furosemide (Lasix) 40 mg PO QAM [facility] Stop: 05/08/19 08:59 Last Admin: 04/09/19 08:32 Dose: 40 mg Documented by: Gabapentin (Neurontin) 100 mg PO BID [facility] Stop: 05/07/19 20:59 Last Admin: 04/09/19 08:31 Dose: 100 mg Documented by: Hydralazine HCl (Apresoline) 10 mg PO TID PRN PRN Reason: blood pressure Stop: 05/08/19 08:59 Last Admin: 04/09/19 08:31 Dose: 10 mg Documented by: Hydromorphone HCl (Dilaudid) 0.2 mg IV Q4H PRN PRN Reason: Pain Stop: 04/22/19 09:50 Last Admin: 04/08/19 12:05 Dose: 0.2 mg Documented by: Lisinopril (Zestril) 40 mg PO QAM [facility] Stop: 05/08/19 08:59 Last Admin: 04/09/19 08:31 Dose: 40 mg Documented by: Magnesium Hydroxide (Milk Of Magnesia) 30 ml PO Q12H PRN PRN Reason: Constipation Stop: 05/07/19 15:20 Metoprolol Tartrate (Lopressor) 25 mg PO BID [facility] Stop: 05/07/19 20:59 Last Admin: 04/09/19 08:32 Dose: 25 mg Documented by: Multivitamins (Multivitamin Tab) 1 tab PO QAM [facility] Stop: 05/08/19 08:59 Last Admin: 04/09/19 08:32 Dose: 1 tab Documented by: Multivitamins/Minerals (Caltrate Plus) 1 tab PO BID [facility] Stop: 05/07/19 20:59 Last Admin: 04/09/19 08:32 Dose: 1 tab Documented by: Oxycodone/Acetaminophen (Percocet 5mg/325mg) 1 tab PO Q4H PRN PRN Reason: Pain Stop: 04/22/19 04:21 Last Admin: 04/09/19 10:01 Dose: 1 tab Documented by: Polyethylene Glycol (Miralax Powder Packet) 17 gm PO DAILY PRN PRN Reason: Constipation Stop: 05/07/19 15:20 Ranitidine HCl (Zantac) 150 mg PO BID [facility] Stop: 05/07/19 20:59 Last Admin: 04/09/19 08:32 Dose: 150 mg Documented by: Tizanidine HCl (Zanaflex) 4 mg PO HS [facility] Stop: 05/07/19 20:59 Last Admin: 04/08/19 20:50 Dose: 4 mg Documented by: Tramadol HCl (Ultram) 50 mg PO Q6H PRN PRN Reason: Pain Stop: 05/07/19 15:20 Last Admin: 04/09/19 13:01 Dose: 50 mg Documented by: PG Care Time/CCT Total # of Minutes Spent Total Time Spent with Patient: Total time spent is greater than 50% in coordination of care (as documented) at patient's floor/unit and/or counseling patient: (1) UTI (urinary tract infection) Hematuria presence: without hematuria Urinary tract infection type: site unspecified Qualified Code(s): N39.0 - Urinary tract infection, site not specified (2) Spinal stenosis Neurogenic claudication status: unspecified Spinal region: lumbar Qualified Code(s): M48.061 - Spinal stenosis, lumbar region without neurogenic claudication
[2019-04-09] MEDS: AMOXICILLIN/CLAVULANATE 875 MG TAB PO SCH (17:09)
[2019-04-09] MEDS ORDERED: ONDANSETRON INJ 2 MG/ML 2 ML VIAL IV PRN (20:39)
[2019-04-09] MEDS: ASPIRIN 81 MG ECTAB PO SCH (21:52)
[2019-04-09] MEDS: TIZANIDINE HCL 4 MG TABLET PO SCH (21:53)
[2019-04-10 07:08] LABS: Eosinophils # (auto) 0.11 K/uL (0-0.5); Eosinophils % (auto) 1.7 %; Hematocrit (blood only) 35.9 % (37-47); Hemoglobin 11.3 g/dL (12.0-16.0); Immature Granulocytes # (auto) 0.01 K/uL (0.00-0.02); Immature Granulocytes % (auto) 0.2 %; Lymphocytes % (auto) 24.7 %; Mean Corpuscular Hemoglobin 29.8 pg (25-34); Mean Corpuscular Hgb Conc 31.5 g/dL (32-36); Mean Corpuscular Volume 94.7 fL (80-100); Mean Platelet Volume 10.5 fL (7.4-10.4); Monocytes # (auto) 0.76 K/uL (0.11-0.59); Monocytes % (auto) 11.7 %; Neutrophils % (auto) 61.7 %; Platelet Count 139 K/uL (130-400); RDW Coefficient of Variation 14.7 % (11.5-14.5); RDW Standard Deviation 50.9 fL (36.4-46.3); Red Blood Count 3.79 M/uL (4.2-5.4); White Blood Count 6.48 K/uL (4.8-10.8)
[2019-04-10 07:52] LABS: Appearance Synovial Fluid BLOODY; Color Synovial Fluid RED; Mononuclear WBC Synovial 45.6 %; Polynuclear WBC Synovial 54.4 %; RBC Synovial Fluid (A) 108000 /uL; Source Synovial Fluid HIP; WBC Synovial Fluid (A) 344 /uL (0-200)
[2019-04-10 07:52] LABS: Albumin Level 2.6 gm/dl (3.4-5.0); BUN Creatinine Ratio 32.4 (10-20); Calcium 8.4 mg/dl (8.5-10.1); Creatinine Clr Calc Pharmacy 59.6 ml/min; Est GFR (Non-African American) 55.2; Potassium 3.9 mmol/L (3.5-5.1)
[2019-04-10 07:54] LABS: Albumin Globulin Ratio 0.9 (0.9-2); Bilirubin,Total 0.5 mg/dl (0.2-1); Globulin 2.8 gm/dl (2.5-4.0); Total Protein 5.4 gm/dl (6.4-8.2)
[2019-04-10] MEDS: AMOXICILLIN/CLAVULANATE 875 MG TAB PO SCH ×2 (07:59→17:24)
[2019-04-10] MEDS: FUROSEMIDE 40 MG TAB PO SCH (08:00)
[2019-04-10] MEDS: CALCIUM 600MG + VIT D 400 IU TAB PO SCH ×2 (08:00→21:00)
[2019-04-10] MEDS: METOPROLOL TARTRATE 25 MG TAB PO SCH ×2 (08:00→21:00)
[2019-04-10] MEDS: MULTIVITAMIN TAB PO SCH (08:01)
[2019-04-10] MEDS: ENOXAPARIN INJ 40 MG/0.4 ML SYR SQ SCH (08:01)
[2019-04-10] MEDS: GABAPENTIN 100 MG CAP PO SCH ×2 (08:02→21:00)
[2019-04-10] MEDS: lisinopriL 40 MG TAB PO SCH (08:03)
[2019-04-10] MEDS: DICLOFENAC SODIUM 75 MG TABCR PO SCH ×2 (09:06→21:01)
[2019-04-10] MEDS: ACETAMINOPHEN 325 MG TAB PO PRN (12:32)
[2019-04-10 14:12] LABS: Cdiff Antigen Positive; Cdiff Toxin A+B Negative Cdiff Toxin (Negative)
[2019-04-10] MEDS ORDERED: LOPERAMIDE HCL 2 MG CAP PO PRN (14:33)
--- NOTE | 2019-04-10 15:43 | Hospitalist Progress Note ---
Date of Service April 10, 2019 Assessment & Plan (1) UTI (urinary tract infection): Patient was started on Zosyn in the emergency room. Urine culture is growing Klebsiella, ruelas sensitive will change to Augmentin, afebrile, WBC normal, no symptoms mild diarrhea and nausea after starting Augmentin, should improve, will monitor (2) Hip pain, right: Right hip pain with effusion. No obvious signs of septic arthritis but with effusion cannot be ruled out completely CT guided arthrocentesis done 04/09 by radiology, 19cc fluid sent for culture only 344 WBC, no growth on culture tentatively planning for SELWYN with Dr. Lucas on 04/16, he recommends that she follow up in office no plans for surgery while here (3) Spinal stenosis: Patient has chronic lower extremity sensory deficits due to previous lumbar spinal stenosis. She says this is improved slowly over time PT/OT evaluations consult from Dr. Doss, he would not recommend surgery (4) Atrial fibrillation: Paroxysmal; Pt Is not anticoagulated due to fall risk and possibly prior meningioma. Cont metoprolol for rate control (5) Hyperlipidemia: statin therapy (6) Hypertension: Blood pressure is improved today. Continue medications as ordered. May improve with treatment of her pain. 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 No issues at this visit. (10) Diarrhea: started today C diff toxin negative, Gene positive so she is a carrier she does NOT have active infection treat diarrhea with imodium, most likely side effect of the Augmentin Subjective patient with diarrhea today, several times could be due to augmentin started last evening, she had some nausea and vomiting as well C diff gene was positive but toxin negative, so she does NOT have active infection still with severe pain in right hip joint aspiration does not show signs of infection at this time eating okay, no chest pain, no dyspnea discussed with Dr. Lucas, she will need to follow up in office, no plans for surgery during this stay Review of Systems Review of Systems: All systems reviewed & are unremarkable except as noted in HPI & below Constitutional: + fatigue and + weakness; no fever Respiratory: no cough and no dyspnea Gastrointestinal: + abdominal pain and + diarrhea/loose stools; no nausea, no vomiting and no constipation Genitourinary: no dysuria Musculoskeletal: + back pain and + joint pain (right hip) Physical Exam 2 Constitutional: WD/WN, vitals as above + in distress (mild, due to pain in right hip/back) Eyes: PERRL, conjunctivae normal, anicteric sclerae ENMT: external ear and nose normal, oropharynx normal Neck: trachea midline, no thyromegaly Respiratory: normal respiratory effort, lungs clear to auscultation Cardiovascular: RRR, no murmur, no edema Gastrointestinal (Abdomen): normal bowel sounds, soft, nontender, no hepatosplenomegaly Musculoskeletal: Head/Neck/Chest: normocephalic and head atraumatic Extremities: extremities normal to inspection, + limited ROM of extremities (low back right hip due to severe pain) and strength 5/5 throughout; no cyanosis and no clubbing Skin: no rashes, warm and dry Neurologic: patellar DTR's 2+ bilat, sensation intact and PERRL, EOMI, accommodation nl, no face palsy, no dysarthria Psychiatric: A+Ox3, euthymic affect Lymphatic: no cervical or axillary lymphadenopathy Results & Data Vital Signs (Past 12 Hours) Vital Signs Temp Pulse Resp BP Pulse Ox 04/10/19 11:39 36.3 C L 57 L 16 177/99 H 97 04/10/19 07:33 37 C 66 16 134/79 96 04/10/19 03:55 36.6 C 55 L 18 110/68 92 Laboratory Results Laboratory Results - last 24 hr 04/09/19 04/10/19 04/10/19 Unknown 06:49 06:49 WBC 6.48 RBC 3.79 L Hgb 11.3 L Hct 35.9 L MCV 94.7 MCH 29.8 MCHC 31.5 L RDW Std Deviation 50.9 H RDW Coeff of Tatyana 14.7 H Plt Count 139 MPV 10.5 H Immature Gran % (Auto) 0.2 Neut % (Auto) 61.7 Lymph % (Auto) 24.7 Robertson % (Auto) 11.7 Eos % (Auto) 1.7 Baso % (Auto) 0.0 Immature Gran # (Auto) 0.01 Neut # (Auto) 4.00 Lymph # (Auto) 1.60 Robertson # (Auto) 0.76 H Eos # (Auto) 0.11 Baso # (Auto) 0.00 Sodium 140 Potassium 3.9 Chloride 107 Carbon Dioxide 28 Anion Gap 5.0 BUN 33 H Creatinine 1.01 Est Cr Clr Drug Dosing 59.6 Est GFR ( Amer) 64.0 Est GFR (Non-Af Amer) 55.2 BUN/Creatinine Ratio 32.4 H Glucose 96 Calcium 8.4 L Total Bilirubin 0.5 AST 11 L ALT 23 Alkaline Phosphatase 93 Total Protein 5.4 L Albumin 2.6 L Globulin 2.8 Albumin/Globulin Ratio 0.9 Synovial Source HIP Synovial Color RED Synovial Appearance BLOODY Synovial WBC 344 H Synovial RBC [id number] Synovial Polynuclear % 54.4 Synovial Mononuclear % 45.6 Stl C. diff Tox B Gene Stl C.difficile Tox A&B 04/10/19 08:55 WBC RBC Hgb Hct MCV MCH MCHC RDW Std Deviation RDW Coeff of Tatyana Plt Count MPV Immature Gran % (Auto) Neut % (Auto) Lymph % (Auto) Robertson % (Auto) Eos % (Auto) Baso % (Auto) Immature Gran # (Auto) Neut # (Auto) Lymph # (Auto) Robertson # (Auto) Eos # (Auto) Baso # (Auto) Sodium Potassium Chloride Carbon Dioxide Anion Gap BUN Creatinine Est Cr Clr Drug Dosing Est GFR ( Amer) Est GFR (Non-Af Amer) BUN/Creatinine Ratio Glucose Calcium Total Bilirubin AST ALT Alkaline Phosphatase Total Protein Albumin Globulin Albumin/Globulin Ratio Synovial Source Synovial Color Synovial Appearance Synovial WBC Synovial RBC Synovial Polynuclear % Synovial Mononuclear % Stl C. diff Tox B Gene Positive Cdiff Gene H Stl C.difficile Tox A&B Negative Cdiff Toxin Medications Administered Current Inpatient Medications Acetaminophen (Tylenol) 650 mg PO Q4H PRN PRN Reason: Pain or Fever Stop: 05/07/19 15:20 Last Admin: 04/10/19 12:32 Dose: 650 mg Documented by: Al Hydrox/Mg Hydrox/Simethicone (Maalox) 15 ml PO Q4H PRN PRN Reason: Dyspepsia Stop: 05/07/19 15:20 Albuterol (Ventolin Hfa) 2 puffs INH Q6H PRN PRN Reason: Wheezing Stop: 05/07/19 15:20 Amoxicillin/Clavulanate Potassium (Augmentin 875mg) 1 tab PO BIDM [facility] Stop: 04/19/19 16:59 Last Admin: 04/10/19 07:59 Dose: 1 tab Documented by: Aspirin (Ecotrin Ectab) 81 mg PO QPM [facility] Stop: 05/07/19 20:59 Last Admin: 04/09/19 21:52 Dose: 81 mg Documented by: Diclofenac Sodium (Voltaren) 75 mg PO BID [facility] Stop: 05/07/19 20:59 Last Admin: 04/10/19 09:06 Dose: 75 mg Documented by: Enoxaparin Sodium (Lovenox) 40 mg SQ QAM [facility] Stop: 05/08/19 10:14 Last Admin: 04/10/19 08:01 Dose: 40 mg Documented by: Gabapentin (Neurontin) 100 mg PO BID [facility] Stop: 05/07/19 20:59 Last Admin: 04/10/19 08:02 Dose: 100 mg Documented by: Hydralazine HCl (Apresoline) 10 mg PO TID PRN PRN Reason: blood pressure Stop: 05/08/19 08:59 Last Admin: 04/09/19 08:31 Dose: 10 mg Documented by: Hydromorphone HCl (Dilaudid) 0.2 mg IV Q4H PRN PRN Reason: Pain Stop: 04/22/19 09:50 Last Admin: 04/08/19 12:05 Dose: 0.2 mg Documented by: Lisinopril (Zestril) 40 mg PO QAM [facility] Stop: 05/08/19 08:59 Last Admin: 04/10/19 08:03 Dose: 40 mg Documented by: Loperamide HCl (Imodium) 2 mg PO Q6 PRN PRN Reason: Diarrhea Stop: 05/10/19 14:32 Magnesium Hydroxide (Milk Of Magnesia) 30 ml PO Q12H PRN PRN Reason: Constipation Stop: 05/07/19 15:20 Metoprolol Tartrate (Lopressor) 25 mg PO BID [facility] Stop: 05/07/19 20:59 Last Admin: 04/10/19 08:00 Dose: 25 mg Documented by: Multivitamins (Multivitamin Tab) [facility] [place] Stop: 05/08/19 08:59 Last Admin: 04/10/19 08:01 Dose: 1 tab Documented by: Multivitamins/Minerals (Caltrate Plus) 1 tab PO BID [facility] Stop: 05/07/19 20:59 Last Admin: 04/10/19 08:00 Dose: 1 tab Documented by: Ondansetron HCl (Zofran) 4 mg IV Q6H PRN PRN Reason: Nausea Stop: 05/09/19 20:38 Last Admin: 04/09/19 21:09 Dose: 4 mg Documented by: Oxycodone/Acetaminophen (Percocet 5mg/325mg) 1 tab PO Q4H PRN PRN Reason: Pain Stop: 04/22/19 04:21 Last Admin: 04/09/19 10:01 Dose: 1 tab Documented by: Polyethylene Glycol (Miralax Powder Packet) 17 gm PO DAILY PRN PRN Reason: Constipation Stop: 05/07/19 15:20 Ranitidine HCl (Zantac) 150 mg PO BID [facility] Stop: 05/07/19 20:59 Last Admin: 04/10/19 08:03 Dose: 150 mg Documented by: Tizanidine HCl (Zanaflex) 4 mg PO HS [facility] Stop: 05/07/19 20:59 Last Admin: 04/09/19 21:53 Dose: 4 mg Documented by: Tramadol HCl (Ultram) 50 mg PO Q6H PRN PRN Reason: Pain Stop: 05/07/19 15:20 Last Admin: 04/09/19 13:01 Dose: 50 mg Documented by: PG Care Time/CCT Total # of Minutes Spent Total Time Spent with Patient: Total time spent is greater than 50% in coordination of care (as documented) at patient's floor/unit and/or counseling patient: (1) UTI (urinary tract infection) Hematuria presence: without hematuria Urinary tract infection type: site unspecified Qualified Code(s): N39.0 - Urinary tract infection, site not specified (2) Spinal stenosis Neurogenic claudication status: unspecified Spinal region: lumbar Qualified Code(s): M48.061 - Spinal stenosis, lumbar region without neurogenic claudication
[2019-04-10] MEDS: OXYCODONE/ACETAMINOPHEN 5mg/325mg TAB PO PRN (16:00)
--- NOTE | 2019-04-10 17:20 | Orthopedic Progress Note ---
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 Continue with conservative treatments for right hip severe DJD. Was scheduled for right total hip arthroplasty 04/16/2019 however case was canceled secondary to cardiac reasons. Currently with C. difficile and UTI. Will now have to be delayed further secondary to ongoing infections and hip aspiration. She may weight-bear as tolerates on her right lower extremity, continue with PT/OT and pain management. Patient will need to follow-up in the office 1 to 2 weeks once discharge. Subjective Patient was seen lying in bed, complaining of pain to the right hip. Unchanged from previous exam in office. No acute issues overnight. Had hip aspiration 04/01/2019. Review of Systems Review of Systems: All systems reviewed & are unremarkable except as noted in HPI & below Constitutional: as per Subjective / HPI Physical Exam Physical Exam: Right lower extremity is neurovascularly sensory intact, + EHL/FHL/TA/GS, +2 dorsalis pedis pulse, limited painful range of motion of the hip, skin overlying hip is clean dry and intact no erythema or edema. Limited motor strength secondary to pain. Constitutional: WD/WN, vitals as above Results & Data Vital Signs (Past 12 Hours) Vital Signs Temp Pulse Resp BP Pulse Ox 04/10/19 11:39 36.3 C L 57 L 16 177/99 H 97 04/10/19 07:33 37 C 66 16 134/79 96
[2019-04-10] MEDS: ASPIRIN 81 MG ECTAB PO SCH (21:00)
[2019-04-10] MEDS: TIZANIDINE HCL 4 MG TABLET PO SCH (21:01)
[2019-04-11] MEDS: OXYCODONE/ACETAMINOPHEN 5mg/325mg TAB PO PRN ×2 (04:58→17:17)
[2019-04-11] MEDS: METOPROLOL TARTRATE 25 MG TAB PO SCH ×2 (08:50→20:40)
[2019-04-11] MEDS: MULTIVITAMIN TAB PO SCH (08:50)
[2019-04-11] MEDS: lisinopriL 40 MG TAB PO SCH (08:51)
[2019-04-11] MEDS: CALCIUM 600MG + VIT D 400 IU TAB PO SCH ×2 (08:51→20:34)
[2019-04-11] MEDS: GABAPENTIN 100 MG CAP PO SCH ×2 (08:51→20:35)
[2019-04-11] MEDS: DICLOFENAC SODIUM 75 MG TABCR PO SCH ×2 (08:51→20:36)
[2019-04-11] MEDS: AMOXICILLIN/CLAVULANATE 875 MG TAB PO SCH ×2 (08:52→17:16)
[2019-04-11] MEDS: ENOXAPARIN INJ 40 MG/0.4 ML SYR SQ SCH (08:52)
[2019-04-11] MEDS ORDERED: MICONAZOLE NITRATE POWDER 43 GM EXT PRN (09:04)
[2019-04-11] MEDS: TIZANIDINE HCL 4 MG TABLET PO PRN (14:39)
--- NOTE | 2019-04-11 16:42 | Hospitalist Progress Note ---
Date of Service April 11, 2019 Assessment & Plan (1) UTI (urinary tract infection): Patient was started on Zosyn in the emergency room. Urine culture is growing Klebsiella, ruelas sensitive will change to Augmentin, afebrile, WBC normal, no symptoms mild diarrhea and nausea after starting Augmentin, improving slowly complete 10 day course total of antibiotics, today is day #5 (2) Diarrhea: started 04/10 C diff toxin negative, Gene positive so she is a carrier she does NOT have active infection treat diarrhea with imodium, most likely side effect of the Augmentin improving today (3) Hip pain, right: Right hip pain with effusion. No obvious signs of septic arthritis but with effusion cannot be ruled out completely CT guided arthrocentesis done 04/09 by radiology, 19cc fluid sent for culture only 344 WBC, no growth on culture tentatively planning for SELWYN with Dr. Lucas on 04/16, he recommends that she follow up in office no plans for surgery while here, needs to complete treatment of UTI in extreme pain, cannot get OOB with therapy today (4) Spinal stenosis: Patient has chronic lower extremity sensory deficits due to previous lumbar spinal stenosis. She says this is improved slowly over time PT/OT evaluations consult from Dr. Doss, he would not recommend surgery (5) Atrial fibrillation: Paroxysmal; Pt Is not anticoagulated due to fall risk and possibly prior meningioma. Cont metoprolol for rate control HR in 50-60's (6) Hyperlipidemia: statin therapy (7) Hypertension: Blood pressure stable (8) Seizure: Stable now, continue monitoring (9) Lymphedema: Lymphedema: Severe.3+, pitting, this is her baseline Continue Lasix & elevate legs Subjective pain in hip is not any better, maybe worse she could not get out of bed with therapy less diarrhea today, she is eating well vitals stable no labs today discussed that at this time Dr. Lucas cannot perform SELWYN due to UTI will determine what type of cardiac work up she may need if any, will review outpatient records Review of Systems Review of Systems: All systems reviewed & are unremarkable except as noted in HPI & below Constitutional: + fatigue and + weakness Musculoskeletal: + back pain and + joint pain Physical Exam Constitutional: WD/WN, vitals as above Eyes: PERRL, conjunctivae normal, anicteric sclerae ENMT: external ear and nose normal, oropharynx normal Neck: trachea midline, no thyromegaly Respiratory: normal respiratory effort, lungs clear to auscultation Cardiovascular: RRR, no murmur, no edema Gastrointestinal (Abdomen): normal bowel sounds, soft, nontender, no hepatosplenomegaly Musculoskeletal: Head/Neck/Chest: normocephalic and head atraumatic Extremities: extremities normal to inspection, + limited ROM of extremities (low back right hip due to severe pain) and strength 5/5 throughout; no cyanosis and no clubbing Skin: no rashes, warm and dry Neurologic: patellar DTR's 2+ bilat, sensation intact and PERRL, EOMI, accommodation nl, no face palsy, no dysarthria Psychiatric: A+Ox3, euthymic affect Lymphatic: no cervical or axillary lymphadenopathy Results & Data Vital Signs (Past 12 Hours) Vital Signs Temp Pulse Resp BP BP Pulse Ox 04/11/19 15:53 36.3 C L 58 L 18 104/60 95 04/11/19 12:08 36.5 C 57 L 16 135/67 95 04/11/19 07:19 36.4 C L 63 16 133/67 93 Medications Administered Current Inpatient Medications Acetaminophen (Tylenol) 650 mg PO Q4H PRN PRN Reason: Pain or Fever Stop: 05/07/19 15:20 Last Admin: 04/10/19 12:32 Dose: 650 mg Documented by: Al Hydrox/Mg Hydrox/Simethicone (Maalox) 15 ml PO Q4H PRN PRN Reason: Dyspepsia Stop: 05/07/19 15:20 Albuterol (Ventolin Hfa) 2 puffs INH Q6H PRN PRN Reason: Wheezing Stop: 05/07/19 15:20 Amoxicillin/Clavulanate Potassium (Augmentin 875mg) 1 tab PO BIDM [facility] Stop: 04/19/19 16:59 Last Admin: 04/11/19 08:52 Dose: 1 tab Documented by: Aspirin (Ecotrin Ectab) 81 mg PO QPM [facility] Stop: 05/07/19 20:59 Last Admin: 04/10/19 21:00 Dose: 81 mg Documented by: Diclofenac Sodium (Voltaren) 75 mg PO BID [facility] Stop: 05/07/19 20:59 Last Admin: 04/11/19 08:51 Dose: 75 mg Documented by: Enoxaparin Sodium (Lovenox) [facility] [place] Stop: 05/08/19 10:14 Last Admin: 04/11/19 08:52 Dose: 40 mg Documented by: Gabapentin (Neurontin) 100 mg PO BID [facility] Stop: 05/07/19 20:59 Last Admin: 04/11/19 08:51 Dose: 100 mg Documented by: Hydralazine HCl (Apresoline) 10 mg PO TID PRN PRN Reason: blood pressure Stop: 05/08/19 08:59 Last Admin: 04/09/19 08:31 Dose: 10 mg Documented by: Hydromorphone HCl (Dilaudid) 0.2 mg IV Q4H PRN PRN Reason: Pain Stop: 04/22/19 09:50 Last Admin: 04/08/19 12:05 Dose: 0.2 mg Documented by: Lisinopril (Zestril) [facility] [place] Stop: 05/08/19 08:59 Last Admin: 04/11/19 08:51 Dose: 40 mg Documented by: Loperamide HCl (Imodium) 2 mg PO Q6 PRN PRN Reason: Diarrhea Stop: 05/10/19 14:32 Last Admin: 04/10/19 16:01 Dose: 2 mg Documented by: Magnesium Hydroxide (Milk Of Magnesia) 30 ml PO Q12H PRN PRN Reason: Constipation Stop: 05/07/19 15:20 Metoprolol Tartrate (Lopressor) 25 mg PO BID [facility] Stop: 05/07/19 20:59 Last Admin: 04/11/19 08:50 Dose: 25 mg Documented by: Miconazole Nitrate (Desenex) 1 appln EXT PRN PRN PRN Reason: Affected Skin Folds Stop: 05/11/19 09:03 Last Admin: 04/11/19 12:40 Dose: 1 appln Documented by: Multivitamins (Multivitamin Tab) 1 tab PO [facility] Stop: 05/08/19 08:59 Last Admin: 04/11/19 08:50 Dose: 1 tab Documented by: Multivitamins/Minerals (Caltrate Plus) 1 tab PO BID [facility] Stop: 05/07/19 20:59 Last Admin: 04/11/19 08:51 Dose: 1 tab Documented by: Ondansetron HCl (Zofran) 4 mg IV Q6H PRN PRN Reason: Nausea Stop: 05/09/19 20:38 Last Admin: 04/09/19 21:09 Dose: 4 mg Documented by: Oxycodone/Acetaminophen (Percocet 5mg/325mg) 1 tab PO Q4H PRN PRN Reason: Pain Stop: 04/22/19 04:21 Last Admin: 04/11/19 04:58 Dose: 1 tab Documented by: Polyethylene Glycol (Miralax Powder Packet) 17 gm PO DAILY PRN PRN Reason: Constipation Stop: 05/07/19 15:20 Ranitidine HCl (Zantac) 150 mg PO BID [facility] Stop: 05/07/19 20:59 Last Admin: 04/11/19 08:51 Dose: 150 mg Documented by: Tizanidine HCl (Zanaflex) 4 mg PO Q8 PRN PRN Reason: Muscle Spasm Stop: 05/11/19 13:59 Last Admin: 04/11/19 14:39 Dose: 4 mg Documented by: Tramadol HCl (Ultram) 50 mg PO Q6H PRN PRN Reason: Pain Stop: 05/07/19 15:20 Last Admin: 04/09/19 13:01 Dose: 50 mg Documented by: PG Care Time/CCT Total # of Minutes Spent Total Time Spent with Patient: Total time spent is greater than 50% in coordination of care (as documented) at patient's floor/unit and/or counseling patient: (1) UTI (urinary tract infection) Hematuria presence: without hematuria Urinary tract infection type: site unspecified Qualified Code(s): N39.0 - Urinary tract infection, site not specified (2) Spinal stenosis Neurogenic claudication status: unspecified Spinal region: lumbar Qualified Code(s): M48.061 - Spinal stenosis, lumbar region without neurogenic claudication
[2019-04-11] MEDS: ASPIRIN 81 MG ECTAB PO SCH (20:35)
[2019-04-12] MEDS: TIZANIDINE HCL 4 MG TABLET PO PRN ×2 (00:04→22:28)
[2019-04-12] MEDS: ACETAMINOPHEN 325 MG TAB PO PRN ×2 (08:23→22:28)
[2019-04-12] MEDS: lisinopriL 40 MG TAB PO SCH (08:24)
[2019-04-12] MEDS: METOPROLOL TARTRATE 25 MG TAB PO SCH ×2 (08:24→20:54)
[2019-04-12] MEDS: AMOXICILLIN/CLAVULANATE 875 MG TAB PO SCH ×2 (08:24→20:06)
[2019-04-12] MEDS: MULTIVITAMIN TAB PO SCH (08:26)
[2019-04-12] MEDS: DICLOFENAC SODIUM 75 MG TABCR PO SCH ×2 (08:26→20:53)
[2019-04-12] MEDS: GABAPENTIN 100 MG CAP PO SCH ×2 (08:26→20:54)
[2019-04-12] MEDS: CALCIUM 600MG + VIT D 400 IU TAB PO SCH ×2 (08:27→20:54)
[2019-04-12] MEDS: ENOXAPARIN INJ 40 MG/0.4 ML SYR SQ SCH (08:27)
[2019-04-12 08:38] LABS: Basophils # (auto) 0.01 K/uL (0-0.2); Basophils % (auto) 0.1 %; Eosinophils # (auto) 0.14 K/uL (0-0.5); Hematocrit (blood only) 38.8 % (37-47); Hemoglobin 11.8 g/dL (12.0-16.0); Immature Granulocytes # (auto) 0.01 K/uL (0.00-0.02); Immature Granulocytes % (auto) 0.1 %; Lymphocytes # (auto) 1.93 K/uL (1.2-3.4); Lymphocytes % (auto) 28.2 %; Mean Corpuscular Hemoglobin 29.5 pg (25-34); Mean Corpuscular Hgb Conc 30.4 g/dL (32-36); Mean Platelet Volume 10.7 fL (7.4-10.4); Monocytes # (auto) 0.69 K/uL (0.11-0.59); Monocytes % (auto) 10.1 %; Neutrophils # (auto) 4.07 K/uL (1.4-6.5); Neutrophils % (auto) 59.5 %; Platelet Count 149 K/uL (130-400); RDW Coefficient of Variation 14.6 % (11.5-14.5); RDW Standard Deviation 52.2 fL (36.4-46.3); White Blood Count 6.85 K/uL (4.8-10.8)
[2019-04-12 09:10] LABS: BUN Creatinine Ratio 32.2 (10-20); Calcium 8.9 mg/dl (8.5-10.1); Creatinine Clr Calc Pharmacy 69.4 ml/min; Est GFR (African American) 77.7; Potassium 4.3 mmol/L (3.5-5.1)
[2019-04-12] MEDS: TRAMADOL HCL 50 MG TABLET PO PRN (13:29)
--- NOTE | 2019-04-12 17:17 | Hospitalist Progress Note ---
Date of Service April 12, 2019 Assessment & Plan (1) Cellulitis: right lower leg, associated with lymphedema hot, tender WBC normal, no fever will change antibiotics to Unasyn and Vancomcyin want to still cover UTI but Augmentin causing issues with her GI tract so will change to Unasyn (2) UTI (urinary tract infection): Patient was started on Zosyn in the emergency room. Urine culture grew Klebsiella, ruelas sensitive changed to Augmentin, afebrile, WBC normal, no symptoms mild diarrhea and nausea after starting Augmentin, improving slowly complete 10 day course total of antibiotics, today is day #6 change to Unasyn due to GI symptoms (3) Diarrhea: started 04/10 C diff toxin negative, Gene positive so she is a carrier she does NOT have active infection treat diarrhea with imodium, most likely side effect of the Augmentin (4) Hip pain, right: Right hip pain with effusion. No obvious signs of septic arthritis but with effusion cannot be ruled out completely CT guided arthrocentesis done 04/09 by radiology, 19cc fluid sent for culture only 344 WBC, no growth on culture Dr. Lucas recommends that she follow up in office no plans for surgery while here, needs to complete treatment of UTI in extreme pain, cannot get OOB with therapy today (5) Spinal stenosis: Patient has chronic lower extremity sensory deficits due to previous lumbar spinal stenosis. She says this is improved slowly over time PT/OT evaluations consult from Dr. Doss, he would not recommend surgery (6) Atrial fibrillation: Paroxysmal; Pt Is not anticoagulated due to fall risk and possibly prior meningioma. Cont metoprolol for rate control HR in 50-60's (7) Hyperlipidemia: statin therapy (8) Hypertension: Blood pressure stable (9) Seizure: Stable now, continue monitoring (10) Lymphedema: Lymphedema: Severe.3+, pitting, this is her baseline Continue Lasix & elevate legs Subjective patient c/o increased redness and pain in right distal leg no fever or chills h/o recurrent cellulitis eating okay still dealing with diarrhea but less frequent, no nausea, no abdominal pain reviewed labs, CBC and BMP within normal limits updated daughter at the bedside Review of Systems Review of Systems: All systems reviewed & are unremarkable except as noted in HPI & below Cardiovascular: + edema (bilaterally) Musculoskeletal: + back pain (low back) and + joint pain (right hip) Integumentary: + erythema (right distal leg and ankle) Physical Exam Constitutional: WD/WN, vitals as above + in distress (mild, due to pain in right hip/back) Eyes: PERRL, conjunctivae normal, anicteric sclerae ENMT: external ear and nose normal, oropharynx normal Neck: trachea midline, no thyromegaly Respiratory: normal respiratory effort, lungs clear to auscultation Cardiovascular: Rate/Rhythm: regular rate and regular rhythm Heart Sounds: normal S1 and normal S2; no murmur Vessels: no JVD Extremities: + edema; + abnormal capillary refill Gastrointestinal (Abdomen): normal bowel sounds, soft, nontender, no hepatosplenomegaly Musculoskeletal: Head/Neck/Chest: normocephalic and head atraumatic Extremities: extremities normal to inspection, + limited ROM of extremities (low back right hip due to severe pain) and strength 5/5 throughout; no cyanosis and no clubbing Skin: + rash (right distal leg/ankle red, warm, tender) Neurologic: patellar DTR's 2+ bilat, sensation intact and PERRL, EOMI, accommodation nl, no face palsy, no dysarthria Psychiatric: A+Ox3, euthymic affect Lymphatic: no cervical or axillary lymphadenopathy Results & Data Vital Signs (Past 12 Hours) Vital Signs Temp Pulse Resp BP BP Pulse Ox 04/12/19 15:09 36.6 C 78 17 134/74 95 04/12/19 08:30 57 L 04/12/19 07:17 36.4 C L 56 L 20 157/83 H 97 Laboratory Results Laboratory Results - last 24 hr 04/12/19 04/12/19 08:08 08:08 WBC 6.85 RBC 4.00 L Hgb 11.8 L Hct 38.8 MCV 97.0 MCH 29.5 MCHC 30.4 L RDW Std Deviation 52.2 H RDW Coeff of Tatyana 14.6 H Plt Count 149 MPV 10.7 H Immature Gran % (Auto) 0.1 Neut % (Auto) 59.5 Lymph % (Auto) 28.2 Crenshaw % (Auto) 10.1 Eos % (Auto) 2.0 Baso % (Auto) 0.1 Immature Gran # (Auto) 0.01 Neut # (Auto) 4.07 Lymph # (Auto) 1.93 Crenshaw # (Auto) 0.69 H Eos # (Auto) 0.14 Baso # (Auto) 0.01 Sodium 140 Potassium 4.3 Chloride 108 H Carbon Dioxide 28 Anion Gap 4.0 BUN 28 H Creatinine 0.86 Est Cr Clr Drug Dosing 69.4 Est GFR ( Amer) 77.7 Est GFR (Non-Af Amer) 67.0 BUN/Creatinine Ratio 32.2 H Glucose 96 Calcium 8.9 Medications Administered Current Inpatient Medications Acetaminophen (Tylenol) 650 mg PO Q4H PRN PRN Reason: Pain or Fever Stop: 05/07/19 15:20 Last Admin: 04/12/19 08:23 Dose: 650 mg Documented by: Al Hydrox/Mg Hydrox/Simethicone (Maalox) 15 ml PO Q4H PRN PRN Reason: Dyspepsia Stop: 05/07/19 15:20 Albuterol (Ventolin Hfa) 2 puffs INH Q6H PRN PRN Reason: Wheezing Stop: 05/07/19 15:20 Amoxicillin/Clavulanate Potassium (Augmentin 875mg) 1 tab PO BIDM [facility] Stop: 04/19/19 16:59 Last Admin: 04/12/19 08:24 Dose: 1 tab Documented by: Aspirin (Ecotrin Ectab) 81 mg PO QPM [facility] Stop: 05/07/19 20:59 Last Admin: 04/11/19 20:35 Dose: 81 mg Documented by: Diclofenac Sodium (Voltaren) 75 mg PO BID [facility] Stop: 05/07/19 20:59 Last Admin: 04/12/19 08:26 Dose: 75 mg Documented by: Enoxaparin Sodium (Lovenox) 40 mg SQ QAM [facility] Stop: 05/08/19 10:14 Last Admin: 04/12/19 08:27 Dose: 40 mg Documented by: Gabapentin (Neurontin) 100 mg PO BID [facility] Stop: 05/07/19 20:59 Last Admin: 04/12/19 08:26 Dose: 100 mg Documented by: Hydralazine HCl (Apresoline) 10 mg PO TID PRN PRN Reason: blood pressure Stop: 05/08/19 08:59 Last Admin: 04/09/19 08:31 Dose: 10 mg Documented by: Hydromorphone HCl (Dilaudid) 0.2 mg IV Q4H PRN PRN Reason: Pain Stop: 04/22/19 09:50 Last Admin: 04/08/19 12:05 Dose: 0.2 mg Documented by: Lisinopril (Zestril) 40 mg PO QAM [facility] Stop: 05/08/19 08:59 Last Admin: 04/12/19 08:24 Dose: 40 mg Documented by: Loperamide HCl (Imodium) 2 mg PO Q6 PRN PRN Reason: Diarrhea Stop: 05/10/19 14:32 Last Admin: 04/10/19 16:01 Dose: 2 mg Documented by: Magnesium Hydroxide (Milk Of Magnesia) 30 ml PO Q12H PRN PRN Reason: Constipation Stop: 05/07/19 15:20 Metoprolol Tartrate (Lopressor) 25 mg PO BID [facility] Stop: 05/07/19 20:59 Last Admin: 04/12/19 08:24 Dose: Not Given Documented by: Miconazole Nitrate (Desenex) 1 appln EXT PRN PRN PRN Reason: Affected Skin Folds Stop: 05/11/19 09:03 Last Admin: 04/11/19 12:40 Dose: 1 appln Documented by: Multivitamins (Multivitamin Tab) 1 tab PO [facility] Stop: 05/08/19 08:59 Last Admin: 04/12/19 08:26 Dose: 1 tab Documented by: Multivitamins/Minerals (Caltrate Plus) 1 tab PO BID [facility] Stop: 05/07/19 20:59 Last Admin: 04/12/19 08:27 Dose: 1 tab Documented by: Ondansetron HCl (Zofran) 4 mg IV Q6H PRN PRN Reason: Nausea Stop: 05/09/19 20:38 Last Admin: 04/09/19 21:09 Dose: 4 mg Documented by: Oxycodone/Acetaminophen (Percocet 5mg/325mg) 1 tab PO Q4H PRN PRN Reason: Pain Stop: 04/22/19 04:21 Last Admin: 04/11/19 17:17 Dose: 1 tab Documented by: Polyethylene Glycol (Miralax Powder Packet) 17 gm PO DAILY PRN PRN Reason: Constipation Stop: 05/07/19 15:20 Ranitidine HCl (Zantac) 150 mg PO BID [facility] Stop: 05/07/19 20:59 Last Admin: 04/12/19 08:26 Dose: 150 mg Documented by: Tizanidine HCl (Zanaflex) 4 mg PO Q8 PRN PRN Reason: Muscle Spasm Stop: 05/11/19 13:59 Last Admin: 04/12/19 00:04 Dose: 4 mg Documented by: Tramadol HCl (Ultram) 50 mg PO Q6H PRN PRN Reason: Pain Stop: 05/07/19 15:20 Last Admin: 04/12/19 13:29 Dose: 50 mg Documented by: PG Care Time/CCT Total # of Minutes Spent Total Time Spent with Patient: Total time spent is greater than 50% in coordination of care (as documented) at patient's floor/unit and/or counseling patient: (1) UTI (urinary tract infection) Hematuria presence: without hematuria Urinary tract infection type: site unspecified Qualified Code(s): N39.0 - Urinary tract infection, site not specified (2) Spinal stenosis Neurogenic claudication status: unspecified Spinal region: lumbar Qualified Code(s): M48.061 - Spinal stenosis, lumbar region without neurogenic claudication
[2019-04-12] MEDS ORDERED: VANCOMYCIN CONSULT ACTIVE PRN (17:19)
[2019-04-12] MEDS ORDERED: VANCOMYCIN HCL 2,000 MG in SODIUM CHLORIDE 0.9% 500 ML IV ONE (18:00)
[2019-04-12] MEDS: AMPICILLIN/SULBACTAM SOD 1,500 MG in 0.9 % SODIUM CHLORIDE 100 ML IV SCH (19:21)
--- NOTE | 2019-04-12 20:36 | Pharmacy Report ---
Pharmacy Abx Dose Short Note - Date of Service April 12, 2019 - Assessment & Plan Assessment: 74 yo Female receiving VANC/UNASYN-IV for treatment of SST. Previously receiving Augmentin 875mg po BID since 04/09/19. Plan: Vanc-IV: * Estimated pharmacokinetics: Vd~0.7 L/kg, Ke~0.0617 hr-1, T 1/2~11 hrs * LOADING DOSE: VANC 2000mg (~22mg/kg) IV x 1, then * MAINTENANCE DOSE: VANC 1250mg (~13mg/kg) IV q 14 hours. * Goal trough level: ~15 mcg/mL * VANC Trough level ordered @ [facility] prior to 04/14 1000 dose Pharmacy will continue to follow and will adjust dose/frequency as necessary. Thank you.
[2019-04-12] MEDS: ASPIRIN 81 MG ECTAB PO SCH (20:55)
[2019-04-13] MEDS: AMPICILLIN/SULBACTAM SOD 1,500 MG in 0.9 % SODIUM CHLORIDE 100 ML IV SCH ×4 (00:13→17:13)
[2019-04-13 05:58] LABS: Creatinine Clr Calc Pharmacy 73.6 ml/min; Est GFR (African American) 83.5; Est GFR (Non-African American) 72.1
[2019-04-13] MEDS: DICLOFENAC SODIUM 75 MG TABCR PO SCH ×2 (08:46→21:21)
[2019-04-13] MEDS: GABAPENTIN 100 MG CAP PO SCH ×2 (08:46→21:22)
[2019-04-13] MEDS: CALCIUM 600MG + VIT D 400 IU TAB PO SCH ×2 (08:46→21:21)
[2019-04-13] MEDS: lisinopriL 40 MG TAB PO SCH (08:46)
[2019-04-13] MEDS: MULTIVITAMIN TAB PO SCH (08:47)
[2019-04-13] MEDS: METOPROLOL TARTRATE 25 MG TAB PO SCH ×2 (08:47→21:21)
[2019-04-13] MEDS: ENOXAPARIN INJ 40 MG/0.4 ML SYR SQ SCH (08:47)
[2019-04-13] MEDS ORDERED: VANCOMYCIN HCL 1,250 MG in SODIUM CHLORIDE 0.9% 250 ML IV SCH (09:00)
--- NOTE | 2019-04-13 15:32 | Hospitalist Progress Note ---
Date of Service April 13, 2019 Assessment & Plan (1) Cellulitis: right lower leg, associated with lymphedema hot, tender WBC normal, no fever continue Unasyn and Vancomcyin transition to PO antibiotics after the weekend (2) UTI (urinary tract infection): Patient was started on Zosyn in the emergency room. Urine culture grew Klebsiella, ruelas sensitive changed to Augmentin, afebrile, WBC normal, no symptoms mild diarrhea and nausea after starting Augmentin, improving slowly complete 10 day course total of antibiotics, today is day #7 change to Unasyn due to GI symptoms (3) Diarrhea: started 04/10 C diff toxin negative, Gene positive so she is a carrier she does NOT have active infection treat diarrhea with imodium, most likely side effect of the Augmentin will make the Imodium scheduled q6 until diarrhea subsides (4) Hip pain, right: Right hip pain with effusion. No obvious signs of septic arthritis but with effusion cannot be ruled out completely CT guided arthrocentesis done 04/09 by radiology, 19cc fluid sent for culture only 344 WBC, no growth on culture Dr. Lucas recommends that she follow up in office no plans for surgery while here, needs to complete treatment of UTI in extreme pain, cannot get OOB with therapy plan for [facility] on Tuesday if her cellulitis is improved (5) Spinal stenosis: Patient has chronic lower extremity sensory deficits due to previous lumbar spinal stenosis. She says this is improved slowly over time PT/OT evaluations consult from Dr. Doss, he would not recommend surgery (6) Atrial fibrillation: Paroxysmal; Pt Is not anticoagulated due to fall risk and possibly prior meningioma. Cont metoprolol for rate control HR in 50-60's (7) Hyperlipidemia: statin therapy (8) Hypertension: Blood pressure stable (9) Seizure: Stable now, continue monitoring (10) Lymphedema: Lymphedema: Severe.3+, pitting, this is her baseline Continue Lasix & elevate legs compression stockings applied Subjective less redness and pain in right lower leg eating well still with loose stools, she is frustrated, discussed making the Imodium scheduled until her bowels slow down no abdominal pain still with severe pain in right hip vitals stable d/w CM, no discharge today due to cellulitis, plan for Tuesday Review of Systems Review of Systems: All systems reviewed & are unremarkable except as noted in HPI & below Constitutional: + fatigue and + weakness; no fever Respiratory: no cough and no dyspnea Gastrointestinal: + diarrhea/loose stools; no abdominal pain, no nausea, no vomiting and no constipation Musculoskeletal: + back pain and + joint pain (right hip) Integumentary: + erythema (right lower leg) Physical Exam Constitutional: WD/WN, vitals as above Eyes: PERRL, conjunctivae normal, anicteric sclerae ENMT: external ear and nose normal, oropharynx normal Neck: trachea midline, no thyromegaly Respiratory: normal respiratory effort, lungs clear to auscultation Cardiovascular: RRR, no murmur, no edema Rate/Rhythm: regular rate and regular rhythm Heart Sounds: normal S1 and normal S2; no murmur Vessels: no JVD Extremities: + edema; + abnormal capillary refill Gastrointestinal (Abdomen): normal bowel sounds, soft, nontender, no hepatosplenomegaly Musculoskeletal: Head/Neck/Chest: normocephalic and head atraumatic Extremities: extremities normal to inspection, + limited ROM of extremities (low back right hip due to severe pain) and strength 5/5 throughout; no cyanosis and no clubbing Skin: no rashes, warm and dry + rash (right distal leg/ankle red, warm, tender) Neurologic: patellar DTR's 2+ bilat, sensation intact and PERRL, EOMI, accommodation nl, no face palsy, no dysarthria Psychiatric: A+Ox3, euthymic affect Lymphatic: no cervical or axillary lymphadenopathy Results & Data Vital Signs (Past 12 Hours) Vital Signs Temp Pulse Pulse Resp BP Pulse Ox 04/13/19 12:12 36.4 C L 64 20 129/84 96 04/13/19 08:01 36.5 C 69 15 122/72 93 Laboratory Results Laboratory Results - last 24 hr 04/13/19 05:11 Creatinine 0.81 Est Cr Clr Drug Dosing 73.6 Est GFR ( Amer) 83.5 Est GFR (Non-Af Amer) 72.1 Medications Administered Current Inpatient Medications Acetaminophen (Tylenol) 650 mg PO Q4H PRN PRN Reason: Pain or Fever Stop: 05/07/19 15:20 Last Admin: 04/12/19 22:28 Dose: 650 mg Documented by: Al Hydrox/Mg Hydrox/Simethicone (Maalox) 15 ml PO Q4H PRN PRN Reason: Dyspepsia Stop: 05/07/19 15:20 Albuterol (Ventolin Hfa) 2 puffs INH Q6H PRN PRN Reason: Wheezing Stop: 05/07/19 15:20 Aspirin (Ecotrin Ectab) 81 mg PO QPM [facility] Stop: 05/07/19 20:59 Last Admin: 04/12/19 20:55 Dose: 81 mg Documented by: Diclofenac Sodium (Voltaren) 75 mg PO BID [facility] Stop: 05/07/19 20:59 Last Admin: 04/13/19 08:46 Dose: 75 mg Documented by: Enoxaparin Sodium (Lovenox) 40 mg SQ QAM [facility] Stop: 05/08/19 10:14 Last Admin: 04/13/19 08:47 Dose: 40 mg Documented by: Gabapentin (Neurontin) 100 mg PO BID [facility] Stop: 05/07/19 20:59 Last Admin: 04/13/19 08:46 Dose: 100 mg Documented by: Hydralazine HCl (Apresoline) 10 mg PO TID PRN PRN Reason: blood pressure Stop: 05/08/19 08:59 Last Admin: 04/09/19 08:31 Dose: 10 mg Documented by: Hydromorphone HCl (Dilaudid) 0.2 mg IV Q4H PRN PRN Reason: Pain Stop: 04/22/19 09:50 Last Admin: 04/08/19 12:05 Dose: 0.2 mg Documented by: Ampicillin Sodium/Sulbactam Sodium 1,500 mg/ Sodium Chloride 104 mls @ 200 mls/hr IV Q6H [facility]; Protocol Stop: 04/19/19 23:59 Last Infusion: 04/13/19 13:40 Dose: Infused Documented by: Vancomycin HCl 1,250 mg/ (Sodium Chloride) 275 mls @ 125 mls/hr IV Q14H [facility]; Protocol Stop: 04/24/19 00:00 Lisinopril (Zestril) 40 mg PO QAM [facility] Stop: 05/08/19 08:59 Last Admin: 04/13/19 08:46 Dose: 40 mg Documented by: Loperamide HCl (Imodium) 2 mg PO Q6 [facility] Stop: 05/13/19 17:59 Magnesium Hydroxide (Milk Of Magnesia) 30 ml PO Q12H PRN PRN Reason: Constipation Stop: 05/07/19 15:20 Metoprolol Tartrate (Lopressor) 25 mg PO BID [facility] Stop: 05/07/19 20:59 Last Admin: 04/13/19 08:47 Dose: 25 mg Documented by: Miconazole Nitrate (Desenex) 1 appln EXT PRN PRN PRN Reason: Affected Skin Folds Stop: 05/11/19 09:03 Last Admin: 04/11/19 12:40 Dose: 1 appln Documented by: Miscellaneous Information (Consult) 1 ea N/A UD PRN PRN Reason: Consult Stop: 05/12/19 17:18 Multivitamins (Multivitamin Tab) 1 tab PO QAM [facility] Stop: 05/08/19 08:59 Last Admin: 04/13/19 08:47 Dose: 1 tab Documented by: Multivitamins/Minerals (Caltrate Plus) 1 tab PO BID [facility] Stop: 05/07/19 20:59 Last Admin: 04/13/19 08:46 Dose: 1 tab Documented by: Ondansetron HCl (Zofran) 4 mg IV Q6H PRN PRN Reason: Nausea Stop: 05/09/19 20:38 Last Admin: 04/09/19 21:09 Dose: 4 mg Documented by: Oxycodone/Acetaminophen (Percocet 5mg/325mg) 1 tab PO Q4H PRN PRN Reason: Pain Stop: 04/22/19 04:21 Last Admin: 04/11/19 17:17 Dose: 1 tab Documented by: Polyethylene Glycol (Miralax Powder Packet) 17 gm PO DAILY PRN PRN Reason: Constipation Stop: 05/07/19 15:20 Ranitidine HCl (Zantac) 150 mg PO BID [facility] Stop: 05/07/19 20:59 Last Admin: 04/13/19 08:47 Dose: 150 mg Documented by: Tizanidine HCl (Zanaflex) 4 mg PO Q8 PRN PRN Reason: Muscle Spasm Stop: 05/11/19 13:59 Last Admin: 04/12/19 22:28 Dose: 4 mg Documented by: Tramadol HCl (Ultram) 50 mg PO Q6H PRN PRN Reason: Pain Stop: 05/07/19 15:20 Last Admin: 10/31/19 13:29 Dose: 50 mg Documented by: PG Care Time/CCT Total # of Minutes Spent Total Time Spent with Patient: Total time spent is greater than 50% in coordination of care (as documented) at patient's floor/unit and/or counseling patient: (1) UTI (urinary tract infection) Hematuria presence: without hematuria Urinary tract infection type: site unspecified Qualified Code(s): N39.0 - Urinary tract infection, site not specified (2) Spinal stenosis Neurogenic claudication status: unspecified Spinal region: lumbar Qualified Code(s): M48.061 - Spinal stenosis, lumbar region without neurogenic claudication
[2019-04-13] MEDS: LOPERAMIDE HCL 2 MG CAP PO SCH (17:22)
[2019-04-13] MEDS: ASPIRIN 81 MG ECTAB PO SCH (21:21)
[2019-04-13] MEDS: TIZANIDINE HCL 4 MG TABLET PO PRN (21:21)
[2019-04-14] MEDS: LOPERAMIDE HCL 2 MG CAP PO SCH ×5 (00:24→23:28)
[2019-04-14] MEDS: AMPICILLIN/SULBACTAM SOD 1,500 MG in 0.9 % SODIUM CHLORIDE 100 ML IV SCH ×5 (00:24→23:29)
[2019-04-14] MEDS: VANCOMYCIN HCL 1,250 MG in SODIUM CHLORIDE 0.9% 250 ML IV SCH ×2 (01:20→14:54)
[2019-04-14] MEDS: OXYCODONE/ACETAMINOPHEN 5mg/325mg TAB PO PRN ×2 (02:21→23:28)
[2019-04-14 06:05] LABS: Creatinine Clr Calc Pharmacy 67.9 ml/min; Est GFR (African American) 75.5; Est GFR (Non-African American) 65.2
[2019-04-14] MEDS: DICLOFENAC SODIUM 75 MG TABCR PO SCH ×2 (09:20→21:15)
[2019-04-14] MEDS: MULTIVITAMIN TAB PO SCH (09:21)
[2019-04-14] MEDS: GABAPENTIN 100 MG CAP PO SCH ×2 (09:21→21:16)
[2019-04-14] MEDS: METOPROLOL TARTRATE 25 MG TAB PO SCH ×2 (09:21→21:16)
[2019-04-14] MEDS: lisinopriL 40 MG TAB PO SCH (09:22)
[2019-04-14] MEDS: ENOXAPARIN INJ 40 MG/0.4 ML SYR SQ SCH (09:23)
[2019-04-14] MEDS: CALCIUM 600MG + VIT D 400 IU TAB PO SCH ×2 (09:23→21:15)
[2019-04-14] MEDS ORDERED: VANCOMYCIN TROUGH ONE ×3 (09:30→13:30)
--- NOTE | 2019-04-14 11:24 | Hospitalist Progress Note ---
Date of Service April 14, 2019 Assessment & Plan (1) Cellulitis: right lower leg, associated with lymphedema hot, tender WBC normal, no fever continue Unasyn and Vancomcyin transition to PO antibiotics after the weekend skin is less red and less warm today, showing good response check CBC in the morning (2) UTI (urinary tract infection): Patient was started on Zosyn in the emergency room. Urine culture grew Klebsiella, ruelas sensitive changed to Augmentin, afebrile, WBC normal, no symptoms mild diarrhea and nausea after starting Augmentin, improving more today complete 10 day course total of antibiotics, today is day #8 change to Unasyn due to GI symptoms (3) Diarrhea: started 04/10 C diff toxin negative, Gene positive so she is a carrier she does NOT have active infection treat diarrhea with imodium, most likely side effect of the Augmentin will make the Imodium scheduled q6 until diarrhea subsides stools less frequent and less loose today (4) Hip pain, right: Right hip pain with effusion. No obvious signs of septic arthritis but with effusion cannot be ruled out completely CT guided arthrocentesis done 04/09 by radiology, 19cc fluid sent for culture only 344 WBC, no growth on culture Dr. Lucas recommends that she follow up in office no plans for surgery while here, needs to complete treatment of UTI in extreme pain, cannot get OOB with therapy plan for [facility] on Tuesday if her cellulitis is improved (5) Spinal stenosis: Patient has chronic lower extremity sensory deficits due to previous lumbar spinal stenosis. She says this is improved slowly over time PT/OT evaluations consult from Dr. Doss, he would not recommend surgery (6) Atrial fibrillation: Paroxysmal; Pt Is not anticoagulated due to fall risk and possibly prior meningioma. Cont metoprolol for rate control HR in 50-60's (7) Hyperlipidemia: statin therapy (8) Hypertension: Blood pressure stable (9) Seizure: Stable now, continue monitoring (10) Lymphedema: Lymphedema: Severe.3+, pitting, this is her baseline Continue Lasix & elevate legs compression stockings applied Subjective patient doing a little better less diarrhea today, per the aide the stool is more solid than two days ago eating well, no chest pain, no dyspnea, no fever/chills c/o some muscle spasms at night, the Zanaflex helps less redness in right lower leg, less pain discussed plan for rehab after this weekend Cr is stable today will check other labs tomorrow Review of Systems Review of Systems: All systems reviewed & are unremarkable except as noted in HPI & below Gastrointestinal: + diarrhea/loose stools Musculoskeletal: + joint pain (right hip) Physical Exam Constitutional: WD/WN, vitals as above Eyes: PERRL, conjunctivae normal, anicteric sclerae ENMT: external ear and nose normal, oropharynx normal Neck: trachea midline, no thyromegaly Respiratory: normal respiratory effort, lungs clear to auscultation Cardiovascular: RRR, no murmur, no edema Rate/Rhythm: regular rate and regular rhythm Heart Sounds: normal S1 and normal S2; no murmur Vessels: no JVD Extremities: + edema Gastrointestinal (Abdomen): normal bowel sounds, soft, nontender, no hepatosplenomegaly Musculoskeletal: Head/Neck/Chest: normocephalic and head atraumatic Extremities: extremities normal to inspection, + limited ROM of extremities (low back right hip due to severe pain) and strength 5/5 throughout; no cyanosis and no clubbing Skin: normal turgor and + rash (right distal leg/ankle less red, less warm, less tender) Neurologic: patellar DTR's 2+ bilat, sensation intact and PERRL, EOMI, accommodation nl, no face palsy, no dysarthria Psychiatric: A+Ox3, euthymic affect Lymphatic: no cervical or axillary lymphadenopathy Results & Data Vital Signs (Past 12 Hours) Vital Signs Temp Pulse Resp BP Pulse Ox 04/14/19 07:31 36.7 C 75 158/71 H 96 04/14/19 02:27 36.5 C 66 16 109/70 95 04/13/19 23:28 36.7 C 66 15 90/52 L 94 Laboratory Results Laboratory Results - last 24 hr 04/14/19 04:55 Creatinine 0.88 Est Cr Clr Drug Dosing 67.9 Est GFR ( Amer) 75.5 Est GFR (Non-Af Amer) 65.2 Medications Administered Current Inpatient Medications Acetaminophen (Tylenol) 650 mg PO Q4H PRN PRN Reason: Pain or Fever Stop: 05/07/19 15:20 Last Admin: 04/12/19 22:28 Dose: 650 mg Documented by: Al Hydrox/Mg Hydrox/Simethicone (Maalox) 15 ml PO Q4H PRN PRN Reason: Dyspepsia Stop: 05/07/19 15:20 Albuterol (Ventolin Hfa) 2 puffs INH Q6H PRN PRN Reason: Wheezing Stop: 05/07/19 15:20 Aspirin (Ecotrin Ectab) 81 mg PO QPM [facility] Stop: 05/07/19 20:59 Last Admin: 04/13/19 21:21 Dose: 81 mg Documented by: Diclofenac Sodium (Voltaren) 75 mg PO BID [facility] Stop: 05/07/19 20:59 Last Admin: 04/14/19 09:20 Dose: 75 mg Documented by: Enoxaparin Sodium (Lovenox) 40 mg SQ QAM [facility] Stop: 05/08/19 10:14 Last Admin: 04/14/19 09:23 Dose: 40 mg Documented by: Gabapentin (Neurontin) 200 mg PO BID [facility] Stop: 05/14/19 20:59 Hydralazine HCl (Apresoline) 10 mg PO TID PRN PRN Reason: blood pressure Stop: 05/08/19 08:59 Last Admin: 04/09/19 08:31 Dose: 10 mg Documented by: Ampicillin Sodium/Sulbactam Sodium 1,500 mg/ Sodium Chloride 104 mls @ 200 mls/hr IV Q6H [facility]; Protocol Stop: 04/19/19 23:59 Last Infusion: 04/14/19 06:20 Dose: Infused Documented by: Vancomycin HCl 1,250 mg/ (Sodium Chloride) 275 mls @ 125 mls/hr IV Q14H [facility]; Protocol Stop: 04/24/19 00:00 Last Infusion: 04/14/19 03:44 Dose: Infused Documented by: Lisinopril (Zestril) 40 mg PO QAM [facility] Stop: 05/08/19 08:59 Last Admin: 04/14/19 09:22 Dose: 40 mg Documented by: Loperamide HCl (Imodium) 2 mg PO Q6 [facility] Stop: 05/13/19 17:59 Last Admin: 04/14/19 05:43 Dose: 2 mg Documented by: Magnesium Hydroxide (Milk Of Magnesia) 30 ml PO Q12H PRN PRN Reason: Constipation Stop: 05/07/19 15:20 Metoprolol Tartrate (Lopressor) 25 mg PO BID [facility] Stop: 05/07/19 20:59 Last Admin: 04/14/19 09:21 Dose: 25 mg Documented by: Miconazole Nitrate (Desenex) 1 appln EXT PRN PRN PRN Reason: Affected Skin Folds Stop: 05/11/19 09:03 Last Admin: 04/11/19 12:40 Dose: 1 appln Documented by: Miscellaneous Information (Consult) 1 ea N/A UD PRN PRN Reason: Consult Stop: 05/12/19 17:18 Multivitamins (Multivitamin Tab) 1 tab PO QAM [facility] Stop: 05/08/19 08:59 Last Admin: 04/14/19 09:21 Dose: 1 tab Documented by: Multivitamins/Minerals (Caltrate Plus) 1 tab PO BID [facility] Stop: 05/07/19 20:59 Last Admin: 04/14/19 09:23 Dose: 1 tab Documented by: Ondansetron HCl (Zofran) 4 mg IV Q6H PRN PRN Reason: Nausea Stop: 05/09/19 20:38 Last Admin: 04/09/19 21:09 Dose: 4 mg Documented by: Oxycodone/Acetaminophen (Percocet 5mg/325mg) 1 tab PO Q4H PRN PRN Reason: Pain Stop: 04/22/19 04:21 Last Admin: 04/14/19 02:21 Dose: 1 tab Documented by: Polyethylene Glycol (Miralax Powder Packet) 17 gm PO DAILY PRN PRN Reason: Constipation Stop: 05/07/19 15:20 Ranitidine HCl (Zantac) 150 mg PO BID [facility] Stop: 05/07/19 20:59 Last Admin: 04/14/19 09:21 Dose: 150 mg Documented by: Tizanidine HCl (Zanaflex) 4 mg PO Q8 PRN PRN Reason: Muscle Spasm Stop: 05/11/19 13:59 Last Admin: 04/13/19 21:21 Dose: 4 mg Documented by: Tramadol HCl (Ultram) 50 mg PO Q6H PRN PRN Reason: Pain Stop: 05/07/19 15:20 Last Admin: 04/12/19 13:29 Dose: 50 mg Documented by: PG Care Time/CCT Total # of Minutes Spent Total Time Spent with Patient: Total time spent is greater than 50% in coordination of care (as documented) at patient's floor/unit and/or counseling patient: (1) UTI (urinary tract infection) Hematuria presence: without hematuria Urinary tract infection type: site unspecified Qualified Code(s): N39.0 - Urinary tract infection, site not specified (2) Spinal stenosis Neurogenic claudication status: unspecified Spinal region: lumbar Qualified Code(s): M48.061 - Spinal stenosis, lumbar region without neurogenic claudication
--- NOTE | 2019-04-14 16:26 | Pharmacy Report ---
Pharmacy Abx Dose Short Note - Date of Service April 14, 2019 - Assessment & Plan Laboratory Tests 04/14/19 13:50 Vancomycin Trough 14.3 Assessment 74 year old F receiving Vancomycin 1250mg IV q14h for treatment of cellulitis of right lower leg Day #3 of antimicrobial therapy. Plan Vancomycin * Trough level of 14.3 mcg/mL is almost therapeutic; level was drawn prior to steady state, so anticipate therapeutic levels at current dose * Continue dose of 1250 mg IV every 14 hours * Goal trough level for Cellulitis: ~15 mcg/mL * Trough level ordered for: 04/16/19 at 0730 Pharmacy will continue to follow and will adjust dose/frequency as necessary. Thank you.
[2019-04-14] MEDS: ASPIRIN 81 MG ECTAB PO SCH (21:16)
[2019-04-14] MEDS: TIZANIDINE HCL 4 MG TABLET PO PRN (21:19)
[2019-04-15] MEDS: VANCOMYCIN HCL 1,250 MG in SODIUM CHLORIDE 0.9% 250 ML IV SCH ×2 (03:28→18:10)
[2019-04-15 05:47] LABS: Basophils # (auto) 0.01 K/uL (0-0.2); Basophils % (auto) 0.2 %; Eosinophils # (auto) 0.18 K/uL (0-0.5); Eosinophils % (auto) 2.8 %; Hematocrit (blood only) 34.2 % (37-47); Hemoglobin 10.4 g/dL (12.0-16.0); Immature Granulocytes # (auto) 0.02 K/uL (0.00-0.02); Immature Granulocytes % (auto) 0.3 %; Lymphocytes # (auto) 1.49 K/uL (1.2-3.4); Lymphocytes % (auto) 23.4 %; Mean Corpuscular Hemoglobin 29.3 pg (25-34); Mean Corpuscular Hgb Conc 30.4 g/dL (32-36); Mean Corpuscular Volume 96.3 fL (80-100); Mean Platelet Volume 10.6 fL (7.4-10.4); Monocytes # (auto) 0.96 K/uL (0.11-0.59); Monocytes % (auto) 15.1 %; Neutrophils % (auto) 58.2 %; Platelet Count 160 K/uL (130-400); RDW Coefficient of Variation 14.7 % (11.5-14.5); RDW Standard Deviation 52.2 fL (36.4-46.3); Red Blood Count 3.55 M/uL (4.2-5.4); White Blood Count 6.36 K/uL (4.8-10.8)
[2019-04-15] MEDS: AMPICILLIN/SULBACTAM SOD 1,500 MG in 0.9 % SODIUM CHLORIDE 100 ML IV SCH ×4 (05:48→23:27)
[2019-04-15] MEDS: LOPERAMIDE HCL 2 MG CAP PO SCH ×4 (05:48→23:27)
[2019-04-15 06:09] LABS: BUN Creatinine Ratio 39.1 (10-20); Calcium 8.7 mg/dl (8.5-10.1); Creatinine Clr Calc Pharmacy 84.1 ml/min; Est GFR (African American) 97.9; Est GFR (Non-African American) 84.5; Potassium 4.6 mmol/L (3.5-5.1)
[2019-04-15] MEDS: MULTIVITAMIN TAB PO SCH (08:11)
[2019-04-15] MEDS: DICLOFENAC SODIUM 75 MG TABCR PO SCH ×2 (08:11→21:21)
[2019-04-15] MEDS: CALCIUM 600MG + VIT D 400 IU TAB PO SCH ×2 (08:11→21:21)
[2019-04-15] MEDS: GABAPENTIN 100 MG CAP PO SCH ×2 (08:12→21:20)
[2019-04-15] MEDS: METOPROLOL TARTRATE 25 MG TAB PO SCH ×2 (08:12→21:02)
[2019-04-15] MEDS: ENOXAPARIN INJ 40 MG/0.4 ML SYR SQ SCH (08:13)
[2019-04-15] MEDS: lisinopriL 40 MG TAB PO SCH (08:13)
--- NOTE | 2019-04-15 14:49 | Hospitalist Progress Note ---
Date of Service April 15, 2019 Assessment & Plan (1) Cellulitis: right lower leg, associated with lymphedema hot, tender WBC normal, no fever continue Unasyn and Vancomcyin can stop Unasyn tomorrow as it is mainly to treat UTI at this point would consider Vancomycin IV even after discharge she has issues with oral antibiotics causing diarrhea and she is C diff gene positive, high risk for developing C diff infection skin is less red and less warm every day, showing good response WBC continues to be normal complete 14 days total of Vancomycin IV, started on 04/12 in evening last day would be 04/26 recommend getting PICC tomorrow (2) UTI (urinary tract infection): Patient was started on Zosyn in the emergency room. Urine culture grew Klebsiella, ruelas sensitive changed to Augmentin, afebrile, WBC normal, no symptoms mild diarrhea and nausea after starting Augmentin, improving more today complete 10 day course total of antibiotics, today is day #9 change to Unasyn due to GI symptoms, last day is tomorrow (3) Diarrhea: started 04/10 C diff toxin negative, Gene positive so she is a carrier she does NOT have active infection treat diarrhea with imodium, most likely side effect of the Augmentin will make the Imodium scheduled q6 until diarrhea subsides stools less frequent and less loose the past two days eating well (4) Hip pain, right: Right hip pain with effusion. No obvious signs of septic arthritis but with effusion cannot be ruled out completely CT guided arthrocentesis done 04/09 by radiology, 19cc fluid sent for culture only 344 WBC, no growth on culture Dr. Lucas recommends that she follow up in office no plans for surgery while here, needs to complete treatment of UTI and cellulitis in extreme pain, cannot get OOB with therapy plan for [facility] on Tuesday she needs to follow up with Dr. Lucas, [facility], in his office in two weeks (5) Spinal stenosis: Patient has chronic lower extremity sensory deficits due to previous lumbar spinal stenosis. She says this is improved slowly over time PT/OT evaluations consult from Dr. Doss, he would not recommend surgery (6) Atrial fibrillation: Paroxysmal; Pt Is not anticoagulated due to fall risk and possibly prior meningioma. Cont metoprolol for rate control HR in 50-60's (7) Hyperlipidemia: statin therapy (8) Hypertension: Blood pressure stable (9) Seizure: Stable now, continue monitoring (10) Lymphedema: Lymphedema: pitting edema, this is her baseline Continue Lasix & elevate legs compression stockings applied Subjective patient eating well, no major issues today diarrhea is improving, one soft stool this AM but then nothing since breathing stable, no chest pain/pressure she said that her right hip "locked up" on her last night, would not move right distal leg a little less red, less warm labs reviewed, WBC normal, Hb stable, Cr and electrolytes stable discussed plan to go to [facility] while on antibiotics and unable to move will need to follow up with Dr. Lucas once the cellulitis resolved Review of Systems Review of Systems: All systems reviewed & are unremarkable except as noted in HPI & below Constitutional: + fatigue and + weakness; no fever Respiratory: no cough and no dyspnea Cardiovascular: no chest pain Gastrointestinal: + diarrhea/loose stools; no abdominal pain, no nausea, no vomiting, no constipation, no blood in stools and no melena Musculoskeletal: + back pain, + joint pain (severe right hip pain) and + muscle weakness Physical Exam Constitutional: WD/WN, vitals as above Eyes: PERRL, conjunctivae normal, anicteric sclerae ENMT: external ear and nose normal, oropharynx normal Neck: trachea midline, no thyromegaly Respiratory: normal respiratory effort, lungs clear to auscultation Cardiovascular: RRR, no murmur, no edema Rate/Rhythm: regular rate and regular rhythm Heart Sounds: normal S1 and normal S2; no murmur Vessels: no JVD Extremities: + edema Gastrointestinal (Abdomen): normal bowel sounds, soft, nontender, no hepatosplenomegaly Musculoskeletal: Head/Neck/Chest: normocephalic and head atraumatic Extremities: extremities normal to inspection, + limited ROM of extremities (low back right hip due to severe pain) and strength 5/5 throughout; no cyanosis and no clubbing Skin: normal turgor and + rash (right distal leg/ankle less red, less warm, less tender) Neurologic: patellar DTR's 2+ bilat, sensation intact and PERRL, EOMI, accommodation nl, no face palsy, no dysarthria Psychiatric: A+Ox3, euthymic affect Lymphatic: no cervical or axillary lymphadenopathy Results & Data Vital Signs (Past 12 Hours) Vital Signs Temp Pulse Resp BP Pulse Ox 11/03/19 07:20 36.5 C 70 20 136/72 95 Laboratory Results Laboratory Results - last 24 hr 04/15/19 04/15/19 05:23 05:23 WBC 6.36 RBC 3.55 L Hgb 10.4 L Hct 34.2 L MCV 96.3 MCH 29.3 MCHC 30.4 L RDW Std Deviation 52.2 H RDW Coeff of Tatyana 14.7 H Plt Count 160 MPV 10.6 H Immature Gran % (Auto) 0.3 Neut % (Auto) 58.2 Lymph % (Auto) 23.4 [place] % (Auto) 15.1 Eos % (Auto) 2.8 Baso % (Auto) 0.2 Immature Gran # (Auto) 0.02 Neut # (Auto) 3.70 Lymph # (Auto) 1.49 [place] # (Auto) 0.96 H Eos # (Auto) 0.18 Baso # (Auto) 0.01 Sodium 140 Potassium 4.6 Chloride 111 H Carbon Dioxide 24 Anion Gap 5.0 BUN 28 H Creatinine 0.71 Est Cr Clr Drug Dosing 84.1 Est GFR ( Amer) 97.9 Est GFR (Non-Af Amer) 84.5 BUN/Creatinine Ratio 39.1 H Glucose 95 Calcium 8.7 Medications Administered Current Inpatient Medications Acetaminophen (Tylenol) 650 mg PO Q4H PRN PRN Reason: Pain or Fever Stop: 05/07/19 15:20 Last Admin: 04/12/19 22:28 Dose: 650 mg Documented by: Al Hydrox/Mg Hydrox/Simethicone (Maalox) 15 ml PO Q4H PRN PRN Reason: Dyspepsia Stop: 05/07/19 15:20 Albuterol (Ventolin Hfa) 2 puffs INH Q6H PRN PRN Reason: Wheezing Stop: 05/07/19 15:20 Aspirin (Ecotrin Ectab) 81 mg PO QPM [facility] Stop: 05/07/19 20:59 Last Admin: 04/14/19 21:16 Dose: 81 mg Documented by: Diclofenac Sodium (Voltaren) 75 mg PO BID [facility] Stop: 05/07/19 20:59 Last Admin: 04/15/19 08:11 Dose: 75 mg Documented by: Enoxaparin Sodium (Lovenox) 40 mg SQ QAM [facility] Stop: 05/08/19 10:14 Last Admin: 04/15/19 08:13 Dose: 40 mg Documented by: Gabapentin (Neurontin) 200 mg PO BID [facility] Stop: 05/14/19 20:59 Last Admin: 04/15/19 08:12 Dose: 200 mg Documented by: Hydralazine HCl (Apresoline) 10 mg PO TID PRN PRN Reason: blood pressure Stop: 05/08/19 08:59 Last Admin: 04/09/19 08:31 Dose: 10 mg Documented by: Ampicillin Sodium/Sulbactam Sodium 1,500 mg/ Sodium Chloride 104 mls @ 200 mls/hr IV Q6H [facility]; Protocol Stop: 04/19/19 23:59 Last Infusion: 04/15/19 13:24 Dose: Infused Documented by: Vancomycin HCl 1,250 mg/ (Sodium Chloride) 275 mls @ 125 mls/hr IV Q14H [facility]; Protocol Stop: 04/24/19 00:00 Last Infusion: 04/15/19 05:40 Dose: Infused Documented by: Lisinopril (Zestril) 40 mg PO QAM [facility] Stop: 05/08/19 08:59 Last Admin: 04/15/19 08:13 Dose: 40 mg Documented by: Loperamide HCl (Imodium) 2 mg PO Q6 [facility] Stop: 05/13/19 17:59 Last Admin: 04/15/19 11:46 Dose: 2 mg Documented by: Magnesium Hydroxide (Milk Of Magnesia) 30 ml PO Q12H PRN PRN Reason: Constipation Stop: 05/07/19 15:20 Metoprolol Tartrate (Lopressor) 25 mg PO BID [facility] Stop: 05/07/19 20:59 Last Admin: 04/15/19 08:12 Dose: 25 mg Documented by: Miconazole Nitrate (Desenex) 1 appln EXT PRN PRN PRN Reason: Affected Skin Folds Stop: 05/11/19 09:03 Last Admin: 04/11/19 12:40 Dose: 1 appln Documented by: Miscellaneous Information (Consult) 1 ea N/A UD PRN PRN Reason: Consult Stop: 05/12/19 17:18 Multivitamins (Multivitamin Tab) [facility] Stop: 05/08/19 08:59 Last Admin: 04/15/19 08:11 Dose: 1 tab Documented by: Multivitamins/Minerals (Caltrate Plus) 1 tab PO BID [facility] Stop: 05/07/19 20:59 Last Admin: 04/15/19 08:11 Dose: 1 tab Documented by: Ondansetron HCl (Zofran) 4 mg IV Q6H PRN PRN Reason: Nausea Stop: 05/09/19 20:38 Last Admin: 04/09/19 21:09 Dose: 4 mg Documented by: Oxycodone/Acetaminophen (Percocet 5mg/325mg) 1 tab PO Q4H PRN PRN Reason: Pain Stop: 04/22/19 04:21 Last Admin: 04/14/19 23:28 Dose: 1 tab Documented by: Polyethylene Glycol (Miralax Powder Packet) 17 gm PO DAILY PRN PRN Reason: Constipation Stop: 05/07/19 15:20 Ranitidine HCl (Zantac) 150 mg PO BID [facility] Stop: 05/07/19 20:59 Last Admin: 04/15/19 08:11 Dose: 150 mg Documented by: Tizanidine HCl (Zanaflex) 4 mg PO Q8 PRN PRN Reason: Muscle Spasm Stop: 05/11/19 13:59 Last Admin: 04/14/19 21:19 Dose: 4 mg Documented by: Tramadol HCl (Ultram) 50 mg PO Q6H PRN PRN Reason: Pain Stop: 05/07/19 15:20 Last Admin: 04/12/19 13:29 Dose: 50 mg Documented by: PG Care Time/CCT Total # of Minutes Spent Total Time Spent with Patient: Total time spent is greater than 50% in coordination of care (as documented) at patient's floor/unit and/or counseling patient: (1) UTI (urinary tract infection) Hematuria presence: without hematuria Urinary tract infection type: site unspecified Qualified Code(s): N39.0 - Urinary tract infection, site not specified (2) Spinal stenosis Neurogenic claudication status: unspecified Spinal region: lumbar Qualified Code(s): M48.061 - Spinal stenosis, lumbar region without neurogenic claudication
[2019-04-15] MEDS: ASPIRIN 81 MG ECTAB PO SCH (21:21)
[2019-04-15] MEDS: TIZANIDINE HCL 4 MG TABLET PO PRN (22:05)
[2019-04-16] MEDS: LOPERAMIDE HCL 2 MG CAP PO SCH ×4 (05:36→23:28)
[2019-04-16] MEDS: OXYCODONE/ACETAMINOPHEN 5mg/325mg TAB PO PRN ×2 (05:36→23:23)
[2019-04-16] MEDS: AMPICILLIN/SULBACTAM SOD 1,500 MG in 0.9 % SODIUM CHLORIDE 100 ML IV SCH ×3 (05:37→17:51)
[2019-04-16] MEDS ORDERED: VANCOMYCIN TROUGH ONE (07:30)
[2019-04-16 08:20] LABS: Creatinine Clr Calc Pharmacy 70.3 ml/min; Est GFR (African American) 78.8
[2019-04-16] MEDS: VANCOMYCIN HCL 1,250 MG in SODIUM CHLORIDE 0.9% 250 ML IV SCH (09:27)
[2019-04-16] MEDS: CALCIUM 600MG + VIT D 400 IU TAB PO SCH ×2 (09:32→20:21)
[2019-04-16] MEDS: METOPROLOL TARTRATE 25 MG TAB PO SCH ×2 (09:32→20:21)
[2019-04-16] MEDS: GABAPENTIN 100 MG CAP PO SCH ×2 (09:33→20:21)
[2019-04-16] MEDS: ENOXAPARIN INJ 40 MG/0.4 ML SYR SQ SCH (09:33)
[2019-04-16] MEDS: DICLOFENAC SODIUM 75 MG TABCR PO SCH ×2 (09:33→20:21)
[2019-04-16] MEDS: MULTIVITAMIN TAB PO SCH (09:33)
[2019-04-16] MEDS: lisinopriL 40 MG TAB PO SCH (09:34)
[2019-04-16] MEDS ORDERED: VANCOMYCIN HCL 1,250 MG in SODIUM CHLORIDE 0.9% 250 ML IV SCH (09:45)
--- NOTE | 2019-04-16 09:54 | Pharmacy Report ---
Pharmacy Abx Dose Short Note - Date of Service April 16, 2019 - Assessment & Plan Assessment * 74 year old F receiving vancomycin (for cellulitis) and Unasyn (for ruelas- sensitive Klebsiella UTI) * Day 5 Unasyn (but 10 day of effective therapy for UTI including Zosyn 04/07-04/09 and Augmentin 04/09-04/12). Per progress note yesterday, plan to discontinue Unasyn today * Day 5 vancomycin with anticipated 14 day course per progress note yesterday * Discharge planning - patient came from home (lives with family) but plan is to discharge to [facility], possibly later today Vancomycin * Plan is to discharge on vancomycin. * q14h interval is difficult to maintain as an outpatient. q12 would be better, and although twice daily dosing is not ideal, plan is to discharge to [facility] and therefore this can be managed appropriately * Goal vancomycin trough ~15 mcg/mL * Can sometimes target lower troughs 10-15 mcg/mL for cellulitis, but as MRSA has not been ruled out and our DAWN's for vancomycin/MRSA are commonly 2 mcg/mL, trough should not be below 15 mcg/mL * Trough of 16.6 mcg/mL is therapeutic. Despite this, will adjust regimen for increased ease of likely outpatient administration (potential discharge later today, if PICC placed) Plan * Recommend discontinuation of Unasyn after today's doses * Adjust vancomycin for easier outpatient administration - 1000 mg IV q12h * Trough prior to 4th dose of new regimen, 04/18 @ 0730 Discharge recommendations * Stop Unasyn/Augmentin - no need to continue as patient will complete 10 day course for UTI today * Vancomycin 1000 mg IV BID (@ 0800 and 1999) * Obtain trough level prior to AM dose on 04/18 (Tuesday), goal trough ~15 mcg/mL, up to 20 mcg/mL * Continue to follow SCr q2-3 days (has been ranging 0.7-0.9 mg/dL as inpatient) * Patient should continue vancomycin for 14 day course (per progress note yesterday) - final dose would then be in AM on 04/26 Pharmacy will continue to follow and will adjust dose/frequency as necessary. Thank you.
--- NOTE | 2019-04-16 18:50 | Hospitalist Progress Note ---
Date of Service April 16, 2019 Assessment & Plan (1) Cellulitis: Slowly improving. Right lower leg, associated with lymphedema hot, tender WBC normal, no fever Continue Vancomcyin. Discontinued Unasyn since it was for UTI mainly Complete 14 days total of Vancomycin IV, started on 04/12 in evening last day would be 04/26 Will put PICC line tomorrow (2) UTI (urinary tract infection): Completed regimen with Unasyn. (3) Diarrhea: Started 04/10 C diff toxin negative, Gene positive so she is a carrier she does NOT have active infection treat diarrhea with imodium, most likely side effect of the Augmentin will make the Imodium scheduled q6 until diarrhea subsides stools less frequent and less loose the past two days eating well (4) Hip pain, right: Right hip pain with effusion. No obvious signs of septic arthritis but with effusion cannot be ruled out completely CT guided arthrocentesis done 04/09 by radiology, 19cc fluid sent for culture only 344 WBC, no growth on culture Dr. Lucas recommends that she follow up in office no plans for surgery while here, needs to complete treatment of UTI and cellulitis in extreme pain, cannot get OOB with therapy plan for [facility] on Tuesday she needs to follow up with Dr. Lucas, [facility], in his office in two weeks (5) Spinal stenosis: Patient has chronic lower extremity sensory deficits due to previous lumbar spinal stenosis. She says this is improved slowly over time PT/OT evaluations.Dr. Selam blount would not recommend surgery (6) Atrial fibrillation: Paroxysmal; Pt Is not anticoagulated due to fall risk and possibly prior meningioma. Cont metoprolol for rate control HR in 50-60's (7) Hyperlipidemia: Continue statin therapy (8) Hypertension: Blood pressure stable. Continue home meds (9) Seizure: Stable now, continue monitoring (10) Lymphedema: Lymphedema: pitting edema, this is her baseline Continue Lasix & elevate legs compression stockings applied Subjective Seen and examined at the bedside. Afebrile. Appetite is slowly improving. Patient does not have any significant complaint today. Patient reported that she will be able to have a surgery done until her infection/cellulitis is resolved. Discussed plan to go to [facility] rehab while on antibiotics and while her cellulitis is resolving. Patient denies fever, chills, chest pain, shortness of breath, abdominal pain, frequency, urgency, syncope. Review of Systems Review of Systems: All systems reviewed & are unremarkable except as noted in HPI & below Physical Exam Constitutional: WD/WN, vitals as above well developed and + obese Eyes: PERRL, conjunctivae normal, anicteric sclerae ENMT: external ear and nose normal, oropharynx normal Neck: trachea midline, no thyromegaly Respiratory: normal respiratory effort, lungs clear to auscultation Cardiovascular: Rate/Rhythm: + irregularly irregular Heart Sounds: normal S1 and normal S2 Palpation: + palpable S3 Vessels: dorsalis pedis pulses present Extremities: + pedal edema and + edema (Bilateral lymphedema with chronic venous stasis) Gastrointestinal (Abdomen): normal bowel sounds, soft, nontender, no hepatosplenomegaly Musculoskeletal: no cyanosis or clubbing, extremities motor strength 5/5 Skin: no rashes, warm and dry Neurologic: patellar DTR's 2+ bilat, sensation intact Psychiatric: A+Ox3, euthymic affect Lymphatic: no cervical or axillary lymphadenopathy Results & Data Vital Signs (Past 12 Hours) Vital Signs Temp Pulse Pulse Resp BP BP Pulse Ox 04/16/19 15:05 36.6 C 60 16 114/74 98 04/16/19 11:55 36.6 C 70 18 155/78 H 96 04/16/19 09:25 73 122/69 04/16/19 08:00 36.4 C L 65 15 158/86 H 95 PG Care Time/CCT Total # of Minutes Spent Total Time Spent with Patient: Total time spent is greater than 50% in coordination of care (as documented) at patient's floor/unit and/or counseling patient: (1) UTI (urinary tract infection) Hematuria presence: without hematuria Urinary tract infection type: site unspecified Qualified Code(s): N39.0 - Urinary tract infection, site not specified (2) Spinal stenosis Neurogenic claudication status: unspecified Spinal region: lumbar Qualified Code(s): M48.061 - Spinal stenosis, lumbar region without neurogenic claudication
[2019-04-16] MEDS: ASPIRIN 81 MG ECTAB PO SCH (20:21)
[2019-04-16] MEDS: VANCOMYCIN HCL 1,000 MG in SODIUM CHLORIDE 0.9% 250 ML IV SCH (20:23)
[2019-04-16] MEDS: TIZANIDINE HCL 4 MG TABLET PO PRN (21:17)
[2019-04-17] MEDS: LOPERAMIDE HCL 2 MG CAP PO SCH ×4 (05:41→23:21)
[2019-04-17] MEDS: lisinopriL 40 MG TAB PO SCH (09:29)
[2019-04-17] MEDS: GABAPENTIN 100 MG CAP PO SCH ×2 (09:29→20:19)
[2019-04-17] MEDS: DICLOFENAC SODIUM 75 MG TABCR PO SCH ×2 (09:29→20:20)
[2019-04-17] MEDS: HydrALAZINE 10 MG TAB PO PRN (09:29)
[2019-04-17] MEDS: VANCOMYCIN HCL 1,000 MG in SODIUM CHLORIDE 0.9% 250 ML IV SCH ×2 (09:29→19:50)
[2019-04-17] MEDS: CALCIUM 600MG + VIT D 400 IU TAB PO SCH ×2 (09:29→20:18)
[2019-04-17] MEDS: METOPROLOL TARTRATE 25 MG TAB PO SCH ×2 (09:29→20:19)
[2019-04-17] MEDS: ENOXAPARIN INJ 40 MG/0.4 ML SYR SQ SCH (09:30)
[2019-04-17] MEDS: MULTIVITAMIN TAB PO SCH (09:30)
--- NOTE | 2019-04-17 10:41 | Hospitalist Progress Note ---
Date of Service April 17, 2019 Assessment & Plan (1) Cellulitis: Slowly improving. Right lower leg, associated with lymphedema WBC normal, no fever Continue Vancomcyin. Discontinued Unasyn since it was for UTI mainly Complete 14 days total of Vancomycin IV, started on 04/12 in evening last day would be 04/26 Will put PICC line tomorrow (2) UTI (urinary tract infection): Completed regimen with Unasyn. (3) Diarrhea: Started 04/10 C diff toxin negative, Gene positive so she is a carrier she does NOT have active infection treat diarrhea with imodium, most likely side effect of the Augmentin will make the Imodium scheduled q6 until diarrhea subsides stools less frequent and less loose the past two days eating well (4) Hip pain, right: Right hip pain with effusion. No obvious signs of septic arthritis but with effusion cannot be ruled out completely CT guided arthrocentesis done 04/09 by radiology, 19cc fluid sent for culture only 344 WBC, no growth on culture Dr. Lucas recommends that she follow up in office no plans for surgery while here, needs to complete treatment of UTI and cellulitis in extreme pain, cannot get OOB with therapy plan for [facility] on Tuesday she needs to follow up with Dr. Lucas, [facility], in his office in two weeks (5) Spinal stenosis: Patient has chronic lower extremity sensory deficits due to previous lumbar spinal stenosis. She says this is improved slowly over time PT/OT evaluations.Dr. Selam blount would not recommend surgery (6) Atrial fibrillation: Paroxysmal; Pt Is not anticoagulated due to fall risk and possibly prior meningioma. Cont metoprolol for rate control HR in 50-60's (7) Hyperlipidemia: Continue statin therapy (8) Hypertension: Blood pressure stable. Continue home meds (9) Seizure: Stable now, continue monitoring (10) Lymphedema: Lymphedema: pitting edema, this is her baseline Continue Lasix & elevate legs compression stockings applied Subjective Seen and examined at the bedside. Afebrile.Patient reported that she will be able to have a surgery done until her infection/cellulitis is resolved. Discussed plan to go to [facility] while on antibiotics and while her cellulitis is resolving. Patient denies fever, chills, chest pain, shortness of breath, abdominal pain, frequency, urgency, syncope. Review of Systems Review of Systems: All systems reviewed & are unremarkable except as noted in HPI & below Physical Exam Constitutional: WD/WN, vitals as above well developed and + obese Eyes: PERRL, conjunctivae normal, anicteric sclerae ENMT: external ear and nose normal, oropharynx normal Neck: trachea midline, no thyromegaly Respiratory: normal respiratory effort, lungs clear to auscultation Cardiovascular: Rate/Rhythm: + irregularly irregular Heart Sounds: normal S1 and normal S2 Palpation: + palpable S3 Vessels: dorsalis pedis pulses present Extremities: + pedal edema and + edema (Bilateral lymphedema with chronic venous stasis) Gastrointestinal (Abdomen): normal bowel sounds, soft, nontender, no hepatosplenomegaly Musculoskeletal: no cyanosis or clubbing, extremities motor strength 5/5 Skin: no rashes, warm and dry Neurologic: patellar DTR's 2+ bilat, sensation intact Psychiatric: A+Ox3, euthymic affect Lymphatic: no cervical or axillary lymphadenopathy Results & Data Vital Signs (Past 12 Hours) Vital Signs Temp Pulse Resp BP Pulse Ox 04/17/19 07:32 36.5 C 61 18 148/82 H 95 04/16/19 23:00 36.4 C L 59 L 18 112/68 95 PG Care Time/CCT Total # of Minutes Spent Total Time Spent with Patient: Total time spent is greater than 50% in coordination of care (as documented) at patient's floor/unit and/or counseling patient: (1) UTI (urinary tract infection) Hematuria presence: without hematuria Urinary tract infection type: site unspecified Qualified Code(s): N39.0 - Urinary tract infection, site not specified (2) Spinal stenosis Neurogenic claudication status: unspecified Spinal region: lumbar Qualified Code(s): M48.061 - Spinal stenosis, lumbar region without neurogenic claudication
[2019-04-17] MEDS: ASPIRIN 81 MG ECTAB PO SCH (20:45)
[2019-04-18] MEDS: OXYCODONE/ACETAMINOPHEN 5mg/325mg TAB PO PRN ×2 (03:04→13:38)
[2019-04-18] MEDS: LOPERAMIDE HCL 2 MG CAP PO SCH ×2 (05:38→12:25)
[2019-04-18] MEDS ORDERED: VANCOMYCIN TROUGH ONE (07:30)
[2019-04-18 07:50] VITALS: BP 127/80; PULSE 67; TEMP 98.1; O2SAT 91
[2019-04-18] MEDS: ENOXAPARIN INJ 40 MG/0.4 ML SYR SQ SCH (08:36)
[2019-04-18] MEDS: METOPROLOL TARTRATE 25 MG TAB PO SCH (08:36)
[2019-04-18] MEDS: MULTIVITAMIN TAB PO SCH (08:36)
[2019-04-18] MEDS: GABAPENTIN 100 MG CAP PO SCH (08:36)
[2019-04-18] MEDS: lisinopriL 40 MG TAB PO SCH (08:37)
[2019-04-18] MEDS: DICLOFENAC SODIUM 75 MG TABCR PO SCH (08:37)
[2019-04-18] MEDS: VANCOMYCIN HCL 1,000 MG in SODIUM CHLORIDE 0.9% 250 ML IV SCH (08:38)
[2019-04-18 08:44] LABS: Creatinine Clr Calc Pharmacy 62.2 ml/min; Est GFR (Non-African American) 58.7
[2019-04-18] MEDS: CALCIUM 600MG + VIT D 400 IU TAB PO SCH (08:56)
--- NOTE | 2019-04-18 09:57 | Pharmacy Report ---
Pharmacy Abx Dose Short Note - Date of Service April 18, 2019 - Assessment & Plan Assessment * 74 year old F receiving on vancomycin day 7 of 14 for cellulitis. Completed 10 day course of Zosyn/Augmentin/Unasyn for UTI on 04/16. * Discharge planning - patient came from home (lives with family) but plan is to discharge to [facility], possibly later today Vancomycin * Plan is to discharge on vancomycin * Although twice daily dosing is not ideal, plan is to discharge to [facility] and therefore this can be managed appropriately * Goal vancomycin trough ~15 mcg/mL * Can sometimes target lower troughs 10-15 mcg/mL for cellulitis, but as MRSA has not been ruled out and our DAWN's for vancomycin/MRSA are commonly 2 mcg/mL, trough should not be below 15 mcg/mL * Trough of 18.7 mcg/mL is therapeutic. Patient may be at risk for accumulation with relatively tight interval therefore will repeat trough in 48 hours Plan * Continue vancomycin 1000 mg IV q12h * Repeat trough 04/20 @ 0730 Discharge recommendations * Vancomycin 1000 mg IV BID (@ 0800 and 2000) * Obtain trough level prior to AM dose on 04/20 (Tuesday), goal trough ~15 mcg/mL, up to 20 mcg/mL * Continue to follow SCr q2-3 days while on vancomycin (has been ranging 0.7-0.9 mg/dL as inpatient) * Patient should continue vancomycin for 14 day course (per progress note yesterday) - final dose would then be in AM on 04/26 Pharmacy will continue to follow and will adjust dose/frequency as necessary. Thank you.
--- NOTE | 2019-04-18 12:23 | XRay Report ---
XR chest 1V portable CLINICAL HISTORY: RIGHT PICC PLACEMENT COMPARISON STUDY: Chest x-ray dated 02/24/2014 FINDINGS: The heart is enlarged. There is radiographic evidence of interstitial pulmonary edema. Ther e is a right-sided PICC catheter, the tip of which projects over the atriocaval junction. There is no pneumothorax. There are advanced arthritic changes in the left shoulder. There are postsurgical alford ges of a right shoulder arthroplasty[ IMPRESSION: 1. Interstitial pulmonary edema pattern 2. Right-sided PICC catheter the tip of which projects over the atriocaval junction Electronically signed by: Geoff Huang M.D. 04/18/2019 12:22 PM
--- NOTE | 2019-04-18 17:09 | Hospitalist Progress Note ---
Date of Service April 18, 2019 Assessment & Plan (1) Cellulitis: Improved. Right lower leg cellulitis improving. Less red and warm. Patient still has some lymphedema bilaterally which is chronic. WBC normal, no fever Continue Vancomcyin. Discontinued Unasyn since it was for UTI mainly, and completed. Complete 14 days total of Vancomycin IV, started on 04/12 in evening last day would be 04/26. Patient has placed line for IV antibiotics. Patient is scheduled to have a Vanco trough every 3 days and CBC with CMP. Monitor renal function. This is going to be reviewed by Drs. in-house at [facility]. Patient will continue physical and occupational therapy in [facility] (2) UTI (urinary tract infection): Completed regimen with Unasyn. (3) Diarrhea: Started 04/10 C diff toxin negative, Gene positive so she is a carrier she does NOT have active infection. Discussed with Dr. Kristie Botello. Patient does not need any therapy for C. difficile negative toxin. Diarrhea responded well to Imodium. Continue for several more days. Appetite improved. (4) Hip pain, right: Right hip pain with effusion. No obvious signs of septic arthritis but with effusion cannot be ruled out completely CT guided arthrocentesis done 04/09 by radiology, 19cc fluid sent for culture only 344 WBC, no growth on culture Dr. Lucas recommends that she follow up in office in 1 to 2 weeks no plans for surgery while here, needs to complete treatment of UTI and cellulitis in extreme pain, cannot get OOB with therapy (5) Spinal stenosis: Patient has chronic lower extremity sensory deficits due to previous lumbar spinal stenosis. She says this is improved slowly over time PT/OT evaluations.Dr. Selam blount would not recommend surgery (6) Atrial fibrillation: Paroxysmal; Pt Is not anticoagulated due to fall risk and possibly prior meningioma. Cont metoprolol for rate control. HR in 50-60's (7) Hyperlipidemia: Continue statin therapy (8) Hypertension: Blood pressure stable. Continue home meds (9) Seizure: Stable now, continue monitoring (10) Lymphedema: Lymphedema: pitting edema, this is her baseline Continue Lasix & elevate legs compression stockings applied Subjective Patient seen and examined at the bedside. Afebrile.Patient stated that she would like to go to [facility] for rehabilitation now and she feels much better. Patient reports that her diarrhea improved and now she has only occasionally loose bowel movements patient reported that she will be able to have a surgery done until her infection/cellulitis is resolved. Patient stated that she is okay to receive vancom[facility] IV in [facility]. Patient denies fever, chills, chest pain, shortness of breath, abdominal pain, frequency, urgency, syncope. Review of Systems Review of Systems: All systems reviewed & are unremarkable except as noted in HPI & below Physical Exam Constitutional: WD/WN, vitals as above well developed and + obese Eyes: PERRL, conjunctivae normal, anicteric sclerae ENMT: external ear and nose normal, oropharynx normal Neck: trachea midline, no thyromegaly Respiratory: normal respiratory effort, lungs clear to auscultation Cardiovascular: Rate/Rhythm: + irregularly irregular Heart Sounds: normal S1 and normal S2 Palpation: + palpable S3 Vessels: dorsalis pedis pulses present (Improving) Extremities: + pedal edema (Improved) and + edema (Bilateral lymphedema with chronic venous stasis-improved) Gastrointestinal (Abdomen): normal bowel sounds, soft, nontender, no hepatosplenomegaly Musculoskeletal: no cyanosis or clubbing, extremities motor strength 5/5 Skin: no rashes, warm and dry Neurologic: patellar DTR's 2+ bilat, sensation intact Psychiatric: A+Ox3, euthymic affect Lymphatic: no cervical or axillary lymphadenopathy Results & Data Vital Signs (Past 12 Hours) Vital Signs Temp Pulse Pulse Resp BP BP Pulse Ox 04/18/19 13:12 36.7 C 67 71 13 114/74 127/80 91 04/18/19 07:48 36.7 C 67 13 127/80 91 PG Care Time/CCT Total # of Minutes Spent Total Time Spent with Patient: Total time spent is greater than 50% in coordination of care (as documented) at patient's floor/unit and/or counseling patient: (1) UTI (urinary tract infection) Hematuria presence: without hematuria Urinary tract infection type: site unspecified Qualified Code(s): N39.0 - Urinary tract infection, site not specified (2) Spinal stenosis Neurogenic claudication status: unspecified Spinal region: lumbar Qualified Code(s): M48.061 - Spinal stenosis, lumbar region without neurogenic claudication
--- NOTE | 2019-04-18 17:10 | Discharge Summary ---
Date of Service April 18, 2019 Principal Diagnosis none Discharge Exam Constitutional WD/WN, vitals as above well developed and + obese Eyes PERRL, conjunctivae normal, anicteric sclerae ENMT external ear and nose normal, oropharynx normal Neck trachea midline, no thyromegaly Respiratory normal respiratory effort, lungs clear to auscultation Cardiovascular Rate/Rhythm: + irregularly irregular Heart Sounds: normal S1 and normal S2 Palpation: + palpable S3 Vessels: dorsalis pedis pulses present (Improving) Extremities: + pedal edema (Improved) and + edema (Bilateral lymphedema with chronic venous stasis-improved) Gastrointestinal (Abdomen) normal bowel sounds, soft, nontender, no hepatosplenomegaly Musculoskeletal no cyanosis or clubbing, extremities motor strength 5/5 Skin no rashes, warm and dry Neurologic patellar DTR's 2+ bilat, sensation intact Psychiatric A+Ox3, euthymic affect Lymphatic no cervical or axillary lymphadenopathy Discharge Data Allergies Allergy/AdvReac Type Severity Reaction Status Date / Time cephalexin Allergy Unknown HIVES Verified 04/07/19 10:46 strawberry Allergy Unknown hives Verified 04/07/19 10:46 Unclassified Drugs Allergy Unknown DIAL SOAP Uncoded 04/07/19 10:46 - RASH Consultations 04/07/19 13:02 ED Decision to Admit Stat 04/08/19 04:12 Consult Orthopedic Surgery Routine 04/08/19 04:28 Consult Orthopedic Surgery Routine 04/08/19 17:41 Consult Radiology Routine Ordered Studies 04/07/19 10:35 CT head/brain wo con Stat CT lumbar spine wo con Stat 04/07/19 10:37 CT pelvis wo con Stat 04/07/19 15:21 US venous doppler LE BI Stat 04/08/19 09:49 CT abd pelvis wo con Routine 04/09/19 FL guided needle placement Routine 04/09/19 08:25 FL inj majr joint sh,hip,kn RT Routine Hospital Course (1) Cellulitis: Improved. Right lower leg cellulitis improving. Less red and warm. Patient still has some lymphedema bilaterally which is chronic. WBC normal, no fever Continue Vancomcyin. Discontinued Unasyn since it was for UTI mainly, and completed. Complete 14 days total of Vancomycin IV, started on 04/12 in evening last day would be 04/26. Patient has placed line for IV antibiotics. Patient is scheduled to have a Vanco trough every 3 days and CBC with CMP. Monitor renal function. This is going to be reviewed by DrsJarad in-house at [facility]. Patient will continue physical and occupational therapy in [facility] (2) UTI (urinary tract infection): Completed regimen with Unasyn. (3) Diarrhea: Started 04/10 C diff toxin negative, Gene positive so she is a carrier she does NOT have active infection. Discussed with Dr. Kristie Botello. Patient does not need any therapy for C. difficile negative toxin. Diarrhea responded well to Imodium. Continue for several more days. Appetite improved. (4) Hip pain, right: Right hip pain with effusion. No obvious signs of septic arthritis but with effusion cannot be ruled out completely CT guided arthrocentesis done 04/09 by radiology, 19cc fluid sent for culture only 344 WBC, no growth on culture Dr. Lucas recommends that she follow up in office in 1 to 2 weeks no plans for surgery while here, needs to complete treatment of UTI and cellulitis in extreme pain, cannot get OOB with therapy (5) Spinal stenosis: Patient has chronic lower extremity sensory deficits due to previous lumbar spinal stenosis. She says this is improved slowly over time PT/OT evaluations.Dr. Selam blount would not recommend surgery (6) Atrial fibrillation: Paroxysmal; Pt Is not anticoagulated due to fall risk and possibly prior meningioma. Cont metoprolol for rate control. HR in 50-60's (7) Hyperlipidemia: Continue statin therapy (8) Hypertension: Blood pressure stable. Continue home meds (9) Seizure: Stable now, continue monitoring (10) Lymphedema: Lymphedema: pitting edema, this is her baseline Continue Lasix & elevate legs compression stockings applied Total Time Total Time Spent Total Time Spent (In Minutes): over 30 min Discharge Plan Discharge Items Patient Disposition: Trans Resident Long-Term Care Reason For Visit: DIZZINESS,NEAR SYNCOPE,RT HIP PAIN,FREQUENT FALL Discharge Diagnosis: Right Lower Extremity Cellulitis Condition on Discharge: Good Health Concerns: She may weight-bear as tolerates on her right lower extremity, continue with PT/OT and pain management. Patient will need to follow-up in the office 1 to 2 weeks once discharge Goals: Physical and Occupational Therapy. Complete IV vancomycin until April 26, 2019. Patient would need bank trough every 3 days with CBC and CMP. Trough should be between 10 and 15 for soft tissue infection called cellulitis. Activity: As commented below Lifting: Gradually increase as tolerated Weightbearing: Full weightbearing Non-emergency contact: Primary Care Provider and Specialist Call non-emergency contact if: you have any medication questions, your symptoms worsen, your pain is not controlled, your pain is worsening, your pain is unusual for you, your pain is concerning for you, you have a fever, your temperature is above 101, your temperature is above 101.5 and your wound has increased redness Follow-up/Referrals: Beatrice Mercado DO [Primary Care Provider] - Diet: Heart Healthy Addtl Attending Provider Instructions: Please follow-up with PCP within 7 days. Your blood needs to be drawn every 3 days for Vanco trough, CBC and CMP. He will need to receive vancomycin IV 1 g every 12 hours until April 26. After your therapy is completed for cellulitis of your right lower extremity your midline needs to be removed. In 2 weeks you would need to follow-up with Dr. Jose Lucas orthopedic surgeon for her right hip. We recommend to have wound care nurse to assess several of your shallow wounds twice a week and place dressing while you are at [facility]. We also recommend your pain to be managed by house physician at [facility]. Pending Studies at Discharge: No Stand-Alone Forms: My [facility] Skilled Items Patient informed of condition?: Yes DNR: No Discharge Level of Care: Skilled Communicable Disease: Yes Discharge Prognosis: Stable Lines: PICC Urinary Catheter: No Medications and DC Order Prescriptions: New loperamide 2 mg Capsule 2 mg PO Q6 Qty: 12 RF: 0 gabapentin 100 mg Capsule 200 mg PO BID Qty: 60 RF: 0 miconazole nitrate 2 % powder 1 applic topical PRN PRN (Reason: rash) Qty: 71 RF: 0 Continued aspirin [Aspir-81] 81 mg Tablet,Delayed Release (Dr/Ec) 81 mg PO QPM Qty: 0 RF: 0 ranitidine HCl 150 mg Capsule 150 mg PO BID Qty: 0 RF: 0 lisinopril 40 mg Tablet 40 mg PO QAM Qty: 0 RF: 0 multivitamin Capsule 1 cap PO QAM Qty: 0 RF: 0 tizanidine 4 mg Capsule 4 mg PO HS Qty: 0 RF: 0 diclofenac sodium 75 mg Tablet,Delayed Release (Dr/Ec) 75 mg PO BID Qty: 0 RF: 0 albuterol sulfate 90 mcg/actuation Hfa Aerosol Inhaler 2 puffs INHALATION Q6H PRN (Reason: Wheezing) Qty: 1 RF: 0 metoprolol tartrate 25 mg Tablet 25 mg PO BID Qty: 0 RF: 0 calcium carbonate-vitamin D3 [Calcium 500 + D] 500 mg(1,250mg) -200 unit Tablet 1 tab PO BID Qty: 0 RF: 0 furosemide 40 mg tablet 40 mg PO QAM Qty: 0 RF: 0 acetaminophen [Tylenol Arthritis Pain] 650 mg Tablet Extended Release 650 mg PO Q6H PRN (Reason: Pain) RF: 0 tramadol 50 mg Tablet 50 mg PO Q6H PRN (Reason: Pain) Qty: 4 RF: 0 Cranberry-Probiotic 480 mg-20 mg- 100million cell Tablet 1 tab PO QDL RF: 0 Discontinued gabapentin 100 mg Capsule 100 mg PO BID Qty: 1 RF: 0 Discharge Orders: Discharge Order (Routine); Ordered 04/18/19 Ordered By: Herb Wilkinson Admission Data Admit Date/Time: 04/07/19 14:22 Attending Provider: Herb Wilkinson Admit Provider: Herb Wilkinson Primary Care Provider: Beatrice Mercado Other Providers: [facility],Home Healthcare ; Herb Wilkinson ; Parish Doss ; Max Morris ; Jorge Valadez ; [facility] ; Clayton Bernal Other Interventions: Discharge Summary Assessment (RN) Last Done: 04/18/19 13:12 DC Date/Time DO NOT enter until pt leaves facility: 04/18/19 15:08
[2019-04-20] MEDS ORDERED: VANCOMYCIN TROUGH ONE (07:30)
== END 2019-04-18 15:08 | DRG 549 ==
LOC: ED 10:05 → 2E 14:22 → SUATTDRO 14:22 → 2E 14:58 → 2N 04-08 09:52 → 3W 04-11 14:37

== ENCOUNTER 2019-10-10 11:13 | Inpatient (IN) ==
[2019-10-10 13:09] LABS: Basophils # (auto) 0.03 K/uL (0-0.2); Basophils % (auto) 0.3 %; Eosinophils # (auto) 0.24 K/uL (0-0.5); Eosinophils % (auto) 2.5 %; Hematocrit (blood only) 37.1 % (37-47); Hemoglobin 11.7 g/dL (12.0-16.0); Immature Granulocytes # (auto) 0.01 K/uL (0.00-0.02); Immature Granulocytes % (auto) 0.1 %; Lymphocytes # (auto) 3.02 K/uL (1.2-3.4); Lymphocytes % (auto) 31.5 %; Mean Corpuscular Hemoglobin 32.5 pg (25-34); Mean Corpuscular Hgb Conc 31.5 g/dL (32-36); Mean Corpuscular Volume 103.1 fL (80-100); Mean Platelet Volume 10.3 fL (7.4-10.4); Monocytes # (auto) 0.94 K/uL (0.11-0.59); Monocytes % (auto) 9.8 %; Neutrophils # (auto) 5.35 K/uL (1.4-6.5); Neutrophils % (auto) 55.8 %; Platelet Count 193 K/uL (130-400); RDW Coefficient of Variation 13.8 % (11.5-14.5); RDW Standard Deviation 51.9 fL (36.4-46.3); White Blood Count 9.59 K/uL (4.8-10.8)
[2019-10-10 13:20] LABS: INR 1.1 (0.9-1.1); Partial Thromboplastin Ratio 0.9; Partial Thromboplastin Time 26.5 Seconds (21.0-31.0); Prothrombin Time 11.1 Seconds (9.0-12.0)
[2019-10-10 13:33] LABS: Albumin Level 3.1 gm/dl (3.4-5.0); BUN Creatinine Ratio 41.9 (10-20); Calcium 9.4 mg/dl (8.5-10.1); Creatinine Clr Calc Pharmacy 46.6 ml/min; Est GFR (African American) 47.6; Potassium 5.2 mmol/L (3.5-5.1)
[2019-10-10 13:36] LABS: Albumin Globulin Ratio 0.9 (0.9-2); Bilirubin,Total 0.4 mg/dl (0.2-1); Globulin 3.6 gm/dl (2.5-4.0); Total Protein 6.7 gm/dl (6.4-8.2)
--- NOTE | 2019-10-10 14:49 | History & Physical Report ---
Date of Service October 10, 2019 Assessment & Plan (1) Hematuria: Admit telemetry H&H appears stable around baseline at 11.7 Urine cytology Will consult urology (2) DVT (deep venous thrombosis): Extensive left lower leg clot, history of left arm DVT secondary to PICC line. Patient also has history of DVT 20 years ago Will start heparin gtt with close monitoring for increased bleeding Consult Dr. Larson from vascular surgery for evaluation for IVC filter (3) Hyperlipidemia: Heart healthy diet (4) Atrial fibrillation: Patient had not previously been anticoagulated for this before the Xeralto for blood clot Continue home metoprolol, hold rivaroxaban (5) Hypertension: continue home metoprolol, lisinopril (6) COPD (chronic obstructive pulmonary disease): Patient reports she has not required inhalers or breathing treatments for some time No exacerbation (7) Hyperkalemia: Potassium 5.2 Will repeat am (8) Elevated alkaline phosphatase level: 298 - Appears to be elevated since August Follow up with pcp (9) DVT prophylaxis: Heparin gtt Admission and Anticipated Discharge Date Admission Date: October 10, 2019 History of Present Illness Ms. Riggins is a direct admission from [facility] due to hematuria which has been ongoing over the month. Much of her history comes from Dr. Donis her pcp. She was placed on rivaroxaban at the beginning of the month for a right upper arm dvt due to a PICC line but has only had a handful of doses as she frequently starts having hematuria and then the medication has to be stopped. She was sent for an ultrasound of her left leg after developing severe edema over the weekend. This showed extensive blood clot. An attempt to resume rivaroxaban was made but resulted in further bleeding. She denies any other discomforts, no aches, chills, fevers, chest pain, palpitations, light headedness, sob, cough, n/v/d, dysuria, hesitancy or skin changes. Primary Care Provider: [facility] Allergies Allergy/AdvReac Type Severity Reaction Status Date / Time cephalexin Allergy Unknown HIVES Verified 08/13/19 08:31 strawberry Allergy Unknown hives Verified 08/13/19 08:31 Unclassified Drugs Allergy Unknown DIAL SOAP Uncoded 08/13/19 08:31 - RASH Home Medications Home Medications Medication Instructions Recorded Confirmed Type aspirin [Aspir-81] 81 mg PO DAILY #0 02/14/14 08/13/19 History lisinopril 40 mg PO DAILY #0 tab 02/14/14 10/10/19 History multivitamin 1 cap PO QAM #0 tab 02/14/14 08/13/19 History calcium carbonate-vitamin D3 1 tab PO BID #0 tab 12/28/17 10/10/19 History [Calcium 500 + D] diclofenac sodium 75 mg PO BID #0 tab 12/28/17 10/10/19 History metoprolol tartrate 25 mg PO BID #0 tab 12/28/17 10/10/19 History furosemide 40 mg tablet 20 mg PO QAM #0 tab 04/17/18 10/10/19 History acetaminophen [Tylenol Arthritis 650 mg PO Q6H PRN 10/06/18 10/10/19 History Pain] famotidine 20 mg PO BID 06/12/19 10/10/19 History gabapentin 400 mg PO TID 06/12/19 10/10/19 History magnesium hydroxide [Milk of 15 ml PO DAILY PRN 06/12/19 10/10/19 History Magnesia] sennosides [senna] 8.6 mg PO DAILY PRN 06/12/19 08/13/19 History sodium phosphates [Fleet Enema] 118 ml [place] HS PRN 06/12/19 08/13/19 History Lactobacillus acidophilus 10 mg PO DAILY 07/03/19 10/10/19 History artifi.tears(hypromellose)(PF) 0.3 1 drops OP TID 07/03/19 10/10/19 History % eye drops bisacodyl 10 mg rectal suppository 10 mg [place] DAILY PRN 07/03/19 10/10/19 History tizanidine 4 mg capsule 4 mg PO Q8H PRN #0 07/03/19 10/10/19 History tramadol 50 mg tablet 50 mg PO Q12H PRN tab 07/03/19 10/10/19 History collagenase clostridium histo. 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 Not on additional anticoagulation due to fall risk and prior meningioma. COPD (chronic obstructive pulmonary disease) Dizziness intermittent; h/o recent falls; has been WC bound since March 2019, now r esides in [place] due to immobility. GERD (gastroesophageal reflux disease) Hearing deficit BL ROBERT Heart valve regurgitation per recent echo 03/27 [place] History of benign brain tumor s/p removal 2016 History of breast cancer s/p left breast lumpectomy + radiation History of cellulitis Treated at [facility] 04/2019, discharged to [facility] with IV ABX via previously placed PICC. History of DVT (deep vein thrombosis) 20+ YEARS AGO AFTER ANKLE FX Hyperlipidemia Hypertension Immobility Severe LE pain and weakness; possibly 2/2 spinal stenosis or hip pain Lumbar spinal stenosis (02/14/14) Lymphedema Meningioma Osteoarthritis Peripheral neuropathy Pressure ulcer of coccygeal region, stage 2 Raynauds disease Seizure sz first episode 2014, discovered brain tumor; additional sz S/P BRAIN TUMOR REMOVAL IN 2016; last seizure 2016. No longer on seizure medications. Spinal stenosis with neuropathy Stress incontinence in female Surgical History (Updated 10/08/19 @ 11:48 by KENNY Dove) H/O hernia repair H/O Spinal surgery History of ankle fusion RIGHT History of breast biopsy History of craniotomy HX OF BENIGN TUMOR REMOVAL IN 2017 History of laminectomy LUMBAR History of lumpectomy of left breast With lymph node dissection -- LUE LIMB RESTRICTION History of ovarian cystectomy History of repair of hiatal hernia History of total knee replacement BILATERAL History of total shoulder replacement RIGHT S/P PICC central line placement 04/2019 for cellulitis of R hip Family History (Updated 10/08/19 @ 11:54 by KENNY Dove) Mother , Passed age 62 of [place] Coronary heart disease Stroke Diabetes Hypertension Father , Passed age 68 of accident (fell down steps) No problems noted. Brother Family history of diabetes mellitus Brother No problems noted. Sister Slow to wake up after anesthesia twin sister Breast cancer Twin - Left Breast - Lumpectomy/Chemo/RXT Sister No problems noted. Sister No problems noted. Sister No problems noted. Sister No problems noted. Son Sarcoidosis Son No problems noted. Daughter No problems noted. 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 ; Do You Dip or Chew Tobacco: No ; Hx Alcohol Use: No Hx Substance Use: No caffeine: No Review of Systems Review of Systems: All systems reviewed & are unremarkable except as noted in HPI & below Physical Exam Physical Exam: General: no distress Eyes: normal inspection, PERLL Respiratory: chest non tender, clear to auscultation, normal breath sounds, no respiratory distress, no accessory muscle use Cardiac: regular rate and rhythm, no rub or gallop, no murmur, significant left lower extremity edema, no jvd GI/: active bowel sounds, no abd pain or tenderness, soft, non distended Extremities: normal range of motion, normal strength, non tender Neuro/Psych: alert and oriented x 3, normal mood and affect Skin: normal color, dry Results & Data Results & Data ([facility]) Vital Signs (Past 12 Hours) Vital Signs Temp Pulse Resp BP Pulse Ox 10/10/19 12:39 36.8 C 66 16 131/83 94 10/10/19 12:37 94 Code Status & VTE Plan Code Status DNR VTE Prophylaxis Plan VTE Prophylaxis will be ordered: Yes Supervising Physician Co-Signing Physician Notes Attending Attestation and Admission Note: Pt seen & examined, chart reviewed, admission care plan d/w YARIEL Alegria. I agree w/ the saenz components of her admission documentation except - * h/o right arm DVT (PICC-line associated) * on exam - right arm much larger than left arm (lymphedema); left leg with severe edema/lymphedema; 1+ edema right leg 74yo female with multiple medical problems as noted in the PMH - recent dx of LLE DVT (extensive by history) about 3-4 weeks ago at [place] - presenting as a direct admission due to multiple episodes of intermittent hematuria. By history there have been several attempts to anticoagulate Ms Riggins with a novel agent. Each time she has been placed on Xarelto she has had gross hematuria. Due to such the xarelto has been held. Re-initiating the xarelto then is followed once again by gross hematuria. Denies dysuria, bladder/pelvic pain. She has had weight loss despite a good appetite (exact amount of weight loss is uncertain). Denies any recent cough or dyspnea or chest pains. PMH, PSH, allergies, meds, sochx, famhx - reviewed vitals stable, O2 sats in RA wnl, no fever gen - obese, NAD neck - no JVD heart - irregular, s1 s2 lungs - CTA b/l abd - soft, NT, ND, BS+, no HSM ext - right arm at least twice the size of left arm; significant lymphedema of entire left leg; about 1+ edema right leg; pulses 2+ b/l labs - Hb 11.7 K 5.2 Cr 1.29 A/P: 1. recent dx of LLE DVT - risk factors - immobility, prior h/o DVT, etc; cannot exclude underlying recurrent cancer (has h/o breast ca) 2. gross hematuria with mild anemia 3. h/o PICC-line associated RUE DVT 4. a.fib - previously not on anticoagulation due to prior meningioma several years ago 5. h/o meningioma w/ resection 6. elevated alk phos Given her recurrent hematuria any time she is challenged with xarelto she may simply NOT be an anticoagulation candidate. thus, will ask Dr Larson from [facility] surgery to assess her candidacy for IVC filter placement. Due to high risk of propagation of DVT to PE, while awaiting Dr Larson's consult, will place on heparin infusion. Watch for return of hematuria; serial CBCs; etc. Stop heparin if any significant bleeding. Hematuria - check u/a, urine cx and urine cytologies. Consider CT abd/pelvis to r/o bladder tumor, stones, etc. Await urology consultation. need to get doppler report from [facility] - this was apparently not done at [facility]. repeat BMP in am. Hold lisinopril due to mild hyperkalemia. Tucker Ivy MD PG Care Time/CCT Total # of Minutes Spent Total Time Spent with Patient: Total time spent is greater than 50% in coordination of care (as documented) at patient's floor/unit and/or counseling patient: Coding Level of Care Code 73992 Initial Inpt Care Lvl 3 Diagnoses Hematuria R31.9 DVT (deep venous thrombosis) I82.409 Hyperlipidemia E78.5 Atrial fibrillation I48.91 Hypertension I10 COPD (chronic obstructive pulmonary disease) J44.9 Hyperkalemia E87.5 Elevated alkaline phosphatase level R74.8 DVT prophylaxis Z29.9
--- NOTE | 2019-10-10 15:55 | Urology Consultation ---
Date of Consultation October 10, 2019 Assessment & Plan (1) Hematuria: Assessment Gross hematuria This seems to be associated with her anticoagulation status. She tells me that when she is not on the anticoagulants the hematuria subsides. Her hematocrit is stable and she is having no discomfort or voiding troubles She is seeing vascular surgery for consultation of for a vena cava filter I will check a urine culture. Since the hematuria subsides with the discontinuation of anticoagulants I think a full hematuria work-up could be done as an outpatient when she is discharged. This would include a CT and cystoscopy. History of Present Illness Attending Physician: Tucker Ivy History of Present Illness Patient is a 74-year-old white female who was admitted to the hospital with a rather extensive lower extremity DVT. She resides in a [facility] and at that facility they would attempt to anticoagulate her but she would then developed gross hematuria. She tells me that as soon as they stop the anticoagulation the hematuria clears up. Hematuria is asymptomatic. She denies any dysuria or suprapubic pain she says she is voiding without any difficulty. Denies any flank pain Allergies Allergy/AdvReac Type Severity Reaction Status Date / Time cephalexin Allergy Unknown HIVES Verified 08/13/19 08:31 strawberry Allergy Unknown hives Verified 08/13/19 08:31 Unclassified Drugs Allergy Unknown DIAL SOAP Uncoded 08/13/19 08:31 - RASH Home Medications Home Medications Medication Instructions Recorded Confirmed Type aspirin [Aspir-81] 81 mg PO DAILY #0 02/14/14 08/13/19 History lisinopril 40 mg PO DAILY #0 tab 02/14/14 08/13/19 History multivitamin 1 cap PO QAM #0 tab 02/14/14 08/13/19 History calcium carbonate-vitamin D3 1 tab PO BID #0 tab 12/28/17 08/13/19 History [Calcium 500 + D] diclofenac sodium 75 mg PO BID #0 tab 12/28/17 08/13/19 History metoprolol tartrate 25 mg PO BID #0 tab 12/28/17 08/13/19 History furosemide 40 mg tablet 20 mg PO QAM #0 tab 04/17/18 08/13/19 History acetaminophen [Tylenol Arthritis 650 mg PO Q6H PRN 10/06/18 08/13/19 History Pain] famotidine 20 mg PO BID 06/12/19 08/13/19 History gabapentin 300 mg PO TID 06/12/19 08/13/19 History magnesium hydroxide [Milk of 15 ml PO DAILY PRN 06/12/19 08/13/19 History Magnesia] sennosides [senna] 8.6 mg PO DAILY PRN 06/12/19 08/13/19 History sodium phosphates [Fleet Enema] 118 ml [place] HS PRN 06/12/19 08/13/19 History Lactobacillus acidophilus 10 mg PO DAILY 07/03/19 08/13/19 History artifi.tears(hypromellose)(PF) 0.3 1 drops OP TID 07/03/19 08/13/19 History % eye drops bisacodyl 10 mg rectal suppository 10 mg [place] DAILY PRN 07/03/19 08/13/19 History tizanidine 4 mg capsule 4 mg PO Q8H PRN #0 07/03/19 08/13/19 History tramadol 50 mg tablet 50 mg PO Q12H PRN tab 07/03/19 08/13/19 History collagenase clostridium histo. 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 Not on additional anticoagulation due to fall risk and prior meningioma. COPD (chronic obstructive pulmonary disease) Dizziness intermittent; h/o recent falls; has been WC bound since March 2019, now resides in [facility] due to immobility. GERD (gastroesophageal reflux disease) Hearing deficit BL ROBERT Heart valve regurgitation per recent echo 03/27 [place] History of benign brain tumor s/p removal 2016 History of breast cancer s/p left breast lumpectomy + radiation History of cellulitis Treated at [facility] 04/2019, discharged to [facility] with IV ABX via previously placed PICC. History of DVT (deep vein thrombosis) 20+ YEARS AGO AFTER ANKLE FX Hyperlipidemia Hypertension Immobility Severe LE pain and weakness; possibly 2/2 spinal stenosis or hip pain Lumbar spinal stenosis (02/14/14) Lymphedema Meningioma Osteoarthritis Peripheral neuropathy Pressure ulcer of coccygeal region, stage 2 Raynauds disease Seizure sz first episode 2014, discovered brain tumor; additional sz S/P BRAIN TUMOR REMOVAL IN 2017; last seizure 2016. No longer on seizure medications. Spinal stenosis with neuropathy Stress incontinence in female Surgical History (Updated 10/08/19 @ 11:48 by KENNY Dove) H/O hernia repair H/O Spinal surgery History of ankle fusion RIGHT History of breast biopsy History of craniotomy HX OF BENIGN TUMOR REMOVAL IN 2017 History of laminectomy LUMBAR History of lumpectomy of left breast With lymph node dissection -- LUE LIMB RESTRICTION History of ovarian cystectomy History of repair of hiatal hernia History of total knee replacement BILATERAL History of total shoulder replacement RIGHT S/P PICC central line placement 04/2019 for cellulitis of R hip Family History (Updated 10/08/19 @ 11:54 by KENNY Dove) Mother , Passed age 62 of [place] Coronary heart disease Stroke Diabetes Hypertension Father , Passed age 68 of accident (fell down steps) No problems noted. Brother Family history of diabetes mellitus Brother No problems noted. Sister Slow to wake up after anesthesia twin sister Breast cancer Twin - Left Breast - Lumpectomy/Chemo/RXT Sister No problems noted. Sister No problems noted. Sister No problems noted. Sister No problems noted. Son Sarcoidosis Son No problems noted. Daughter No problems noted. 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 ; Do You Dip or Chew Tobacco: No ; Hx Alcohol Use: No Hx Substance Use: No caffeine: No Review of Systems Review of Systems: Review of systems was reviewed from her admission history and physical Physical Exam Physical Exam: Constitutional Well-developed well-nourished In no acute distress, Healthy appearing Neuro/psych Alert and oriented x3 Normal mood Normal affect Normal coordination Skin Normal color Normal turgor No rashes Warm and Dry Neck Normal visual inspection Pulmonary Normal rhythm and effort No respiratory distress No audible wheezes Able to speak in complete sentences Cardiac No peripheral edema Abdomen soft nontender there are no masses the bladder is not palpable Results & Data Vital Signs (Past 12 Hours) Vital Signs Temp Pulse Resp BP Pulse Ox 10/10/19 15:46 36.3 C L 56 L 18 133/79 97 10/10/19 12:39 36.8 C 66 16 131/83 94 10/10/19 12:37 94 Laboratory Results Laboratory Results - last 24 hr 10/10/19 10/10/19 10/10/19 13:01 13:01 13:01 WBC 9.59 RBC 3.60 L Hgb 11.7 L Hct 37.1 MCV 103.1 H MCH 32.5 MCHC 31.5 L RDW Std Deviation 51.9 H RDW Coeff of Tatyana 13.8 Plt Count 193 MPV 10.3 Immature Gran % (Auto) 0.1 Neut % (Auto) 55.8 Lymph % (Auto) 31.5 [place] % (Auto) 9.8 Eos % (Auto) 2.5 Baso % (Auto) 0.3 Immature Gran # (Auto) 0.01 Neut # (Auto) 5.35 Lymph # (Auto) 3.02 [place] # (Auto) 0.94 H Eos # (Auto) 0.24 Baso # (Auto) 0.03 PT 11.1 INR 1.1 APTT 26.5 PTT Ratio 0.9 Sodium 140 Potassium 5.2 H Chloride 108 H Carbon Dioxide 25 Anion Gap 7.0 BUN 54 H Creatinine 1.29 H Est Cr Clr Drug Dosing 46.6 Est GFR ( Amer) 47.6 Est GFR (Non-Af Amer) 41.0 BUN/Creatinine Ratio 41.9 H Glucose 88 Calcium 9.4 Total Bilirubin 0.4 AST 24 ALT 37 Alkaline Phosphatase 298 H Total Protein 6.7 Albumin 3.1 L Globulin 3.6 Albumin/Globulin Ratio 0.9 Hepatitis C Ab Screen 10/10/19 13:01 WBC RBC Hgb Hct MCV MCH MCHC RDW Std Deviation RDW Coeff of Tatyana Plt Count MPV Immature Gran % (Auto) Neut % (Auto) Lymph % (Auto) [place] % (Auto) Eos % (Auto) Baso % (Auto) Immature Gran # (Auto) Neut # (Auto) Lymph # (Auto) [place] # (Auto) Eos # (Auto) Baso # (Auto) PT INR APTT PTT Ratio Sodium Potassium Chloride Carbon Dioxide Anion Gap BUN Creatinine Est Cr Clr Drug Dosing Est GFR ( Amer) Est GFR (Non-Af Amer) BUN/Creatinine Ratio Glucose Calcium Total Bilirubin AST ALT Alkaline Phosphatase Total Protein Albumin Globulin Albumin/Globulin Ratio Hepatitis C Ab Screen Neg PG Care Time/CCT Total # of Minutes Spent Total Time Spent with Patient: Total time spent is greater than 50% in coordination of care (as documented) at patient's floor/unit and/or counseling patient: Coding Level of Care Code 86013 Initial Inpt Care Lvl 2 Diagnoses Hematuria R31.9
[2019-10-10] MEDS: HEPARIN SODIUM/DEXTROSE 25,000 UNITS/500 ML BAG IV SCH (16:11)
[2019-10-10] MEDS ORDERED: bisacodyL 10 MG SUPP PR PRN (18:56)
[2019-10-10] MEDS ORDERED: TIZANIDINE HCL 4 MG TABLET PO PRN (18:56)
[2019-10-10] MEDS ORDERED: MAGNESIUM HYDROXIDE SUSP 30 ML UDC PO PRN (18:56)
[2019-10-10 19:27] LABS: Appearance Urine Cloudy (Clear); Bacteria Urine Automated Negative (Negative); Bilirubin Urine Negative (Negative); Blood Urine 3+ (Negative); Epithelial Cell Urine Auto >30 /lpf (0-5); Glucose Urine UA Negative (Negative); Ketones Urine Negative (Negative); Leukocyte Esterase Urine 2+ (Negative); Nitrite Urine Negative (Negative); Protein Urine 2+ (Negative); RBC Urine Automated >30 /hpf (0-4); Specific Gravity Urine 1.018 (1.000-1.030); Urobilinogen Urine Negative (Negative); WBC Urine Automated >30 /hpf (0-5); pH Urine 6.5 (4.5-7.5)
[2019-10-10 19:42] LABS: Color Urine Brown
[2019-10-10 19:58] LABS: Cast Urine Automated 0 /lpf (0-5)
[2019-10-10] MEDS: METOPROLOL TARTRATE 25 MG TAB PO SCH (21:46)
[2019-10-10] MEDS: CALCIUM 600MG + VIT D 400 IU TAB PO SCH (21:46)
[2019-10-10] MEDS: GABAPENTIN 400 MG CAP PO SCH (21:47)
[2019-10-10] MEDS: FAMOTIDINE 20 MG TAB PO SCH (21:47)
[2019-10-10] MEDS: DOCUSATE SODIUM/SENNA 50/8.6MG TAB PO SCH (21:48)
[2019-10-10] MEDS: DICLOFENAC SODIUM 75 MG TABCR PO SCH (21:48)
[2019-10-10 23:01] LABS: Partial Thromboplastin Ratio 1.8
[2019-10-10 23:07] LABS: Partial Thromboplastin Time 50.4 Seconds (21.0-31.0)
[2019-10-11 06:43] LABS: Partial Thromboplastin Ratio 2.3
[2019-10-11 06:55] LABS: Partial Thromboplastin Time 63.2 Seconds (21.0-31.0)
[2019-10-11 07:50] LABS: Basophils # (auto) 0.03 K/uL (0-0.2); Basophils % (auto) 0.4 %; Eosinophils # (auto) 0.22 K/uL (0-0.5); Eosinophils % (auto) 2.9 %; Hematocrit (blood only) 34.1 % (37-47); Hemoglobin 10.9 g/dL (12.0-16.0); Immature Granulocytes # (auto) 0.02 K/uL (0.00-0.02); Immature Granulocytes % (auto) 0.3 %; Lymphocytes # (auto) 3.66 K/uL (1.2-3.4); Lymphocytes % (auto) 47.5 %; Mean Corpuscular Hemoglobin 32.2 pg (25-34); Mean Corpuscular Volume 100.9 fL (80-100); Mean Platelet Volume 10.7 fL (7.4-10.4); Monocytes # (auto) 0.62 K/uL (0.11-0.59); Monocytes % (auto) 8.1 %; Neutrophils # (auto) 3.15 K/uL (1.4-6.5); Neutrophils % (auto) 40.8 %; Platelet Count 198 K/uL (130-400); RDW Coefficient of Variation 13.8 % (11.5-14.5); RDW Standard Deviation 50.7 fL (36.4-46.3); Red Blood Count 3.38 M/uL (4.2-5.4)
[2019-10-11 07:54] LABS: Albumin Level 2.7 gm/dl (3.4-5.0); BUN Creatinine Ratio 48.5 (10-20); Calcium 9.2 mg/dl (8.5-10.1); Creatinine Clr Calc Pharmacy 49.4 ml/min; Est GFR (African American) 50.4; Est GFR (Non-African American) 43.5; Potassium 4.9 mmol/L (3.5-5.1)
[2019-10-11 07:56] LABS: Albumin Globulin Ratio 0.8 (0.9-2); Bilirubin,Total 0.3 mg/dl (0.2-1); Globulin 3.3 gm/dl (2.5-4.0)
[2019-10-11] MEDS: lisinopriL 40 MG TAB PO SCH (08:36)
[2019-10-11] MEDS: FERROUS SULFATE 325 MG TAB PO SCH (08:36)
[2019-10-11] MEDS: METOPROLOL TARTRATE 25 MG TAB PO SCH ×2 (08:37→20:38)
[2019-10-11] MEDS: FUROSEMIDE 20 MG TAB PO SCH (08:37)
[2019-10-11] MEDS: LACTOBACILLUS ACIDOPHILUS (FLORANEX) TAB PO SCH (08:37)
[2019-10-11] MEDS: Heparin IV Standard *NO* Bolus IV SCH ×3 (08:37→09:01)
[2019-10-11] MEDS: CALCIUM 600MG + VIT D 400 IU TAB PO SCH ×2 (08:38→20:38)
[2019-10-11] MEDS: DICLOFENAC SODIUM 75 MG TABCR PO SCH ×2 (08:38→17:49)
[2019-10-11] MEDS: GABAPENTIN 400 MG CAP PO SCH ×3 (08:38→20:38)
[2019-10-11] MEDS: FAMOTIDINE 20 MG TAB PO SCH ×2 (08:38→20:39)
[2019-10-11] MEDS: DOCUSATE SODIUM/SENNA 50/8.6MG TAB PO SCH ×2 (08:39→20:39)
--- NOTE | 2019-10-11 08:40 | Urology Progress Note ---
Date of Service October 11, 2019 Assessment & Plan (1) Hematuria: Seems to be relatively stable Hemoglobin is unchanged Denies any significant discomfort although she does have mild right flank pain I suggested we complete her work-up as an outpatient as was suggested yesterday during her initial consultation We will sign off for now please call us if there are other issues during this hospitalizationwe will arrange for outpatient follow-up and completion of her work-up Subjective Doing okay this morning She reports that she has some mild right flank pain, no other abdominal discomfort She is uncertain how much her hematuria has improved but feels that she is emptying her bladder adequately. She does reports that she has not really looked at her urine and there is no urine specimen available right now She reports that she has been experiencing similar pattern of hematuria followed by resolution after stopping anticoagulation and then recurrent hematuria after resuming the anticoagulation She has had intermittent right flank pain throughout that time She has never had a kidney stone Review of Systems Review of Systems: All systems reviewed & are unremarkable except as noted in HPI & below Physical Exam Constitutional: well developed and well nourished Neck: neck nontender Respiratory: normal respiratory effort; no respiratory distress and does not use accessory muscles Cardiovascular: Rate/Rhythm: regular rate Vessels: radial pulses present Extremities: no edema Gastrointestinal (Abdomen): Inspection/Auscultation: abdomen normal to inspection Percussion/Palpation: + abdomen tender (Minimally tender on the right flank, no rebound, no guarding) and abdomen soft; no guarding Musculoskeletal: Head/Neck/Chest: normocephalic and head atraumatic E xtremities: extremities normal to inspection Skin: no rashes and no lesions Trauma: no evidence of skin trauma Neurologic: awake; not obtunded Speech / Cognition: normal speech Motor/Sensory: no tremor Psychiatric: Orientation: alert and oriented x 3 Lymphatic: no lymphadenopathy Results & Data Vital Signs (Past 12 Hours) Vital Signs Temp Pulse Resp BP Pulse Ox 10/11/19 07:37 36.4 C L 63 18 127/75 98 10/11/19 04:07 36.9 C 95 H 16 90/51 L 94 10/10/19 23:51 36.3 C L 59 L 16 110/74 99 PG Care Time/CCT Total # of Minutes Spent Total Time Spent with Patient: Total time spent is greater than 50% in coordination of care (as documented) at patient's floor/unit and/or counseling p atient: Coding Level of Care Code 91284 Subseq Hosp Care Lvl 2 Diagnoses Hematuria R31.9
[2019-10-11] MEDS: ARTIFICIAL TEARS OP SCH ×3 (09:00→20:37)
[2019-10-11] MEDS: HEPARIN SODIUM/DEXTROSE 25,000 UNITS/500 ML BAG IV SCH (10:12)
--- NOTE | 2019-10-11 11:22 | Consultation ---
Date of Consultation October 11, 2019 Assessment & Plan (1) DVT (deep venous thrombosis): Being she has hematuria and anticoagulation is contraindicated, would recommend placement of History of Present Illness Reason for Consultation: DVT left lower extremity with hematuria Attending Physician: Adam Welch MD History of Present Illness Patient developed sudden left leg swelling and discomfort. She did have a DVT over 20 years ago. She did have a DVT from her PICC line recently. Once she starts on anticoagualtion, she develops hematuria. Urology would like to keep her off anticoagulation. USN does she an acute DVT left leg. Allergies Allergy/AdvReac Type Severity Reaction Status Date / Time cephalexin Allergy Unknown HIVES Verified 08/13/19 08:31 strawberry Allergy Unknown hives Verified 08/13/19 08:31 Unclassified Drugs Allergy Unknown DIAL SOAP Uncoded 08/13/19 08:31 - RASH Home Medications Home Medications Medication Instructions Recorded Confirmed Type aspirin [Aspir-81] 81 mg PO DAILY #0 02/14/14 08/13/19 History lisinopril 40 mg PO DAILY #0 tab 02/14/14 10/10/19 History multivitamin 1 cap PO QAM #0 tab 02/14/14 08/13/19 History calcium carbonate-vitamin D3 1 tab PO BID #0 tab 12/28/17 10/10/19 History [Calcium 500 + D] diclofenac sodium 75 mg PO BID #0 tab 12/28/17 10/10/19 History metoprolol tartrate 25 mg PO BID #0 tab 12/28/17 10/10/19 History furosemide 40 mg tablet 20 mg PO QAM #0 tab 04/17/18 10/10/19 History acetaminophen [Tylenol Arthritis 650 mg PO Q6H PRN 10/06/18 10/10/19 History Pain] famotidine 20 mg PO BID 06/12/19 10/10/19 History gabapentin 400 mg PO TID 06/12/19 10/10/19 History magnesium hydroxide [Milk of 15 ml PO DAILY PRN 06/12/19 10/10/19 History Magnesia] sennosides [senna] 8.6 mg PO DAILY PRN 06/12/19 08/13/19 History sodium phosphates [Fleet Enema] 118 ml HI HS PRN 06/12/19 08/13/19 History Lactobacillus acidophilus 10 mg PO DAILY 07/03/19 10/10/19 History artifi.tears(hypromellose)(PF) 0.3 1 drops OP TID 07/03/19 10/10/19 History % eye drops bisacodyl 10 mg rectal suppository 10 mg HI DAILY PRN 07/03/19 10/10/19 History tizanidine 4 mg capsule 4 mg PO Q8H PRN #0 07/03/19 10/10/19 History tramadol 50 mg tablet 50 mg PO Q12H PRN tab 07/03/19 10/10/19 History collagenase clostridium histo. 250 1 appln TOP DAILY 07/26/19 08/13/19 History unit/gram topical ointment rivaroxaban [Xarelto] 15 mg PO BID 08/13/19 08/13/19 History rivaroxaban [Xarelto] 20 mg PO DAILY 08/13/19 10/10/19 History ferrous sulfate 325 mg PO DAILY 10/10/19 10/10/19 History sennosides-docusate sodium 1 tab-cap PO BID 10/10/19 10/10/19 History Patient History Medical History Anosmia 2/2 resection of benign brain tumor Arthritis Atrial fibrillation dx few years ago - PCP monitors - on ASA, BB. Not on additional anticoagulation due to fall risk and prior meningioma. COPD (chronic obstructive pulmonary disease) Dizziness intermittent; h/o recent falls; has been WC bound since March 2019, now resides in [facility] due to immobility. GERD (gastroesophageal reflux disease) Hearing deficit [place] Heart valve regurgitation per recent echo 03/27 [place] History of benign brain tumor s/p removal 2016 History of breast cancer s/p left breast lumpectomy + radiation History of cellulitis Treated at [facility] 04/2019, discharged to halfway with IV ABX via previously placed PICC. History of DVT (deep vein thrombosis) 20+ YEARS AGO AFTER ANKLE FX Hyperlipidemia Hypertension Immobility Severe LE pain and weakness; possibly 2/2 spinal stenosis or hip pain Lumbar spinal stenosis (02/14/14) Lymphedema Meningioma Osteoarthritis Peripheral neuropathy Pressure ulcer of coccygeal region, stage 2 Raynauds disease Seizure sz first episode 2014, discovered brain tumor; additional sz S/P BRAIN TUMOR REMOVAL IN 2016; last seizure 2017. No longer on seizure medications. Spinal stenosis with neuropathy Stress incontinence in female Surgical History H/O hernia repair H/O Spinal surgery History of ankle fusion RIGHT History of breast biopsy History of craniotomy HX OF BENIGN TUMOR REMOVAL IN 2017 History of laminectomy LUMBAR History of lumpectomy of left breast With lymph node dissection -- LUE LIMB RESTRICTION History of ovarian cystectomy History of repair of hiatal hernia History of total knee replacement BILATERAL History of total shoulder replacement RIGHT S/P PICC central line placement 04/2019 for cellulitis of R hip Family History Mother , Passed age 62 of [place] Coronary heart disease Stroke Diabetes Hypertension Father , Passed age 68 of accident (fell down steps) No problems noted. Brother Family history of diabetes mellitus Brother No problems noted. Sister Slow to wake up after anesthesia twin sister Breast cancer Twin - Left Breast - Lumpectomy/Chemo/RXT Sister No problems noted. Sister No problems noted. Sister No problems noted. Sister No problems noted. Son Sarcoidosis Son No problems noted. Daughter No problems noted. 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 ; Do You Dip or Chew Tobacco: No ; Hx Alcohol Use: No Hx Substance Use: No caffeine: No Review of Systems Review of Systems: All systems reviewed & are unremarkable except as noted in HPI & below Physical Exam Constitutional: WD/WN, vitals as above Respiratory: normal respiratory effort, lungs clear to auscultation Cardiovascular: Rate/Rhythm: regular rate and regular rhythm Extremities: + edema (significant left leg edema) Gastrointestinal (Abdomen): Inspection/Auscultation: abdomen normal to inspection; abdomen not distended Percussion/Palpation: abdomen soft; abdomen nontender Musculoskeletal: Extremities: extremities normal to inspection Neurologic: normal touch/pain/proprioception and CN's II-XI intact bilaterally Psychiatric: Orientation: alert and oriented x 3 Results & Data Vital Signs (Past 12 Hours) Vital Signs Temp Pulse Pulse Resp BP Pulse Ox 10/11/19 08:00 53 L 10/11/19 07:37 36.4 C L 63 18 127/75 98 10/11/19 04:07 36.9 C 95 H 16 90/51 L 94 10/10/19 23:51 36.3 C L 59 L 16 110/74 99
--- NOTE | 2019-10-11 11:23 | Ultrasound Report ---
US venous doppler LE LT CLINICAL HISTORY: Left leg swelling. Reported history of prior DVT. COMPARISON STUDY: 04/10/2019 FINDINGS: There is an occlusive thrombus involving the left common femoral vein, greater saphenous ve in, profunda vein, superficial femoral vein, popliteal vein, posterior tibial vein, peroneal vein, an d anterior tibial vein. There is soft tissue edema. IMPRESSION: Extensive left lower extremity DVT extending from the common femoral vein to the calf. ACT 112: Negative or not required by law. Electronically signed by: Geoff Huang M.D. 10/11/2019 11:22 AM
--- NOTE | 2019-10-11 16:03 | Hospitalist Progress Note ---
Date of Service October 11, 2019 Assessment & Plan (1) Hematuria: Coagulation defect due to Xarelto (intended) resulting in hematuria, to be considered for IVC filter. Recurrent hematuria in the setting of anticoagulation. H&H appears stable around baseline at 11.7. - Hgb down slightly today to 10.9, but still near baseline. - Urine cytology was negative for high-grade urothelial carcinoma - Consulted urology -> Plan for outpatient CT and cystoscopy (2) DVT (deep venous thrombosis): Extensive left lower leg clot, history of left arm DVT secondary to PICC line. Patient also has history of DVT 20 years ago. - Continue heparin gtt - Plan for IVC filter tomorrow with Dr. Larson - Case discussed today with him. (3) Atrial fibrillation: Chronic atrial fibrillation. Patient had not previously been anticoagulated for this before the Xeralto for blood clot - Continue home metoprolol - Hold rivaroxaban as above (4) Hypertension: BP is 120/80 today. - Continue home metoprolol, lisinopril (5) COPD (chronic obstructive pulmonary disease): Patient reports she has not required inhalers or breathing treatments for some time. No exacerbation. - Monitor (6) Elevated alkaline phosphatase level: 298 - Appears to be elevated since August. - Follow up with PCP Admission and Anticipated Discharge Date Admission Date: October 10, 2019 Subjective Mild left leg pain, but otherwise stable today. Reports no fevers/chills, chest pain, shortness of breath, abdominal pain, nausea, or vomiting. Physical Exam Constitutional: WD/WN, vitals as above Eyes: EOM intact bilaterally; no conjunctival abnormality ENMT: external ear and nose normal, oropharynx normal Neck: trachea midline, no thyromegaly normal visual inspection Respiratory: normal respiratory effort, lungs clear to auscultation no respiratory distress Cardiovascular: RRR, no murmur, no edema Gastrointestinal (Abdomen): Inspection/Auscultation: abdomen normal to inspection; abdomen not distended Musculoskeletal: no cyanosis or clubbing, extremities motor strength 5/5 Skin: no rashes, warm and dry Neurologic: moves all extremities and awake Psychiatric: Orientation: alert, oriented to person and cooperative Results & Data Results & Data ([facility]) Vital Signs (Past 12 Hours) Vital Signs Temp Pulse Pulse Resp BP Pulse Ox 10/11/19 15:53 43 L 10/11/19 12:08 36.4 C L 52 L 20 138/81 99 10/11/19 08:00 53 L 10/11/19 07:37 36.4 C L 63 18 127/75 98 10/11/19 04:07 36.9 C 95 H 16 90/51 L 94 PG Care Time/CCT Total # of Minutes Spent Total Time Spent with Patient: Total time spent is greater than 50% in coordination of care (as documented) at patient's floor/unit and/or counseling patient: Coding Level of Care Code 04907 Subseq Hosp Care Lvl 3 Diagnoses Hematuria R31.9 DVT (deep venous thrombosis) I82.409 Atrial fibrillation I48.91 Hypertension I10 COPD (chronic obstructive pulmonary disease) J44.9 Elevated alkaline phosphatase level R74.8
[2019-10-12] MEDS: HEPARIN SODIUM/DEXTROSE 25,000 UNITS/500 ML BAG IV SCH (05:21)
[2019-10-12] MEDS ORDERED: CLINDAMYCIN 600 MG/54 ML BAG IV SCH (06:00)
[2019-10-12 06:27] LABS: Hematocrit (blood only) 36.2 % (37-47); Hemoglobin 11.6 g/dL (12.0-16.0); Mean Corpuscular Hemoglobin 32.3 pg (25-34); Mean Corpuscular Volume 100.8 fL (80-100); Mean Platelet Volume 10.6 fL (7.4-10.4); Platelet Count 193 K/uL (130-400); RDW Coefficient of Variation 13.6 % (11.5-14.5); RDW Standard Deviation 50.5 fL (36.4-46.3); Red Blood Count 3.59 M/uL (4.2-5.4); White Blood Count 7.93 K/uL (4.8-10.8)
[2019-10-12 06:46] LABS: Partial Thromboplastin Ratio 2.5
[2019-10-12 07:02] LABS: Albumin Level 2.9 gm/dl (3.4-5.0); BUN Creatinine Ratio 43.3 (10-20); Calcium 9.3 mg/dl (8.5-10.1); Creatinine Clr Calc Pharmacy 45.2 ml/min; Est GFR (African American) 45.4; Est GFR (Non-African American) 39.2; Magnesium 2.3 mg/dl (1.8-2.4); Phosphorus 4.8 mg/dl (2.5-4.9); Potassium 4.6 mmol/L (3.5-5.1)
[2019-10-12 07:05] LABS: Albumin Globulin Ratio 0.8 (0.9-2); Bilirubin,Total 0.4 mg/dl (0.2-1); Globulin 3.5 gm/dl (2.5-4.0); Total Protein 6.4 gm/dl (6.4-8.2)
[2019-10-12 07:14] LABS: Partial Thromboplastin Time 68.9 Seconds (21.0-31.0)
--- NOTE | 2019-10-12 07:44 | Pre Anesthesia Assessment ---
Date of Service October 12, 2019 Pre Sedation Assessment Vital Signs Temp Pulse Pulse Resp BP Pulse Ox 10/12/19 07:26 36.7 C 51 L 17 116/79 97 10/12/19 05:30 36.4 C L 53 L 18 117/80 99 10/12/19 00:00 63 10/11/19 23:45 36.6 C 55 L 19 123/75 98 10/11/19 20:12 36.5 C 62 18 115/75 97 10/11/19 15:59 36.6 C 57 L 18 120/79 99 10/11/19 15:53 43 L 10/11/19 12:08 36.4 C L 52 L 20 138/81 99 10/11/19 08:00 53 L Cardiovascular RRR, no murmur, no edema Respiratory normal respiratory effort, lungs clear to auscultation Pre-Sedation Airway Assessment Smoking Status: Former smoker Hx Sleep Apnea: No Short, Thick Neck: No Thyromental Distance: > or= 3.5 Finger Breadths Oral Cavity: + Dental Abnormalities Mallampati Class: II ASA: ASA3 NPO Status Date of Last Intake of Fluids: 10/11/19 Time of Last Intake of Fluids: 21:00 Date of Last Intake of Solid Food: 10/11/19 Time of Last Intake of Solid Foods: 21:00 Procedure Planning Contraindications for Sedation: none Current Medications Reviewed: Yes Notes The planned sedation has been discussed with the patient. Informed Consent was obtained. I have identified the patient, determined the appropriateness of sedation and have assessed the patient immediately prior to the procedure. All medicine(s) and interventions are by my order.
--- NOTE | 2019-10-12 07:44 | History & Physical Bridge Note ---
Date of Service October 12, 2019 History & Physical Bridge Note Patienet for insertion of vena cava filter. I have discussed the risks options and benefits of the procedure with the patient. The patient understands the risks options and benefits and agrees to the procedure. I have examined the patient, reviewed the History & Physical and in the interval since the performance of the History & Physical I have noted the following changes of clinical significance: no changes noted
[2019-10-12] MEDS ORDERED: LIDOCAINE HCL 1% 20 ML VIAL ONE (07:47)
[2019-10-12] MEDS ORDERED: fentaNYL citrate 100 MCG/2 ML VIAL ONE (08:10)
[2019-10-12] MEDS ORDERED: MIDAZOLAM HCL 1 MG/ML 2ML VIAL ONE (08:10)
[2019-10-12] MEDS ORDERED: OPTIRAY 300 IV PRN (08:28)
--- NOTE | 2019-10-12 08:45 | Operative Report ---
Post Operative Report Pre & Post Diagnosis Operation Date: 10/12/19 08:00 Pre-Op Diagnosis: DVT, Contraindication to Anticoagulation Post-Op Diagnosis: DVT, Contraindication to Anticoagulation I identified the patient and participated in the time-out.: Yes Procedure Operation Date: 10/12/19 08:00 Actual Procedures p Insertion of Vena Cava Filter, Right Jugular Approach, Ultrasound Localization of right internal jugular vein, Fluoroscopy for Positioning, Moderate Sedation [id number](Right) - Eliazar Larson MD Surgeon Eliazar Larson MD Diamond Setter None Estimated Blood Loss 0 Findings Consistent with Post-Op Diagnosis Specimens None Anesthesia Type RN Sedation Complications none Disposition Accompanied Patient To Recovery: No Disposition: Recovery Room Indications This is a 74-year-old female who presented with extensive deep venous thrombosis of the left lower extremity which is acute. Every time she goes on anticoagulation she develops hematuria. This necessitated stoppage of the anticoagulation. Due to the anticoagulation problem with hematuria filter was recommended. I have discussed the risks options and benefits of the procedure with the patient. The patient understands the risks options and benefits and agrees to the procedure. Description of Procedure The patient was brought to the angio suite and placed in the supine position. The patient was identified and a timeout performed. The right side of the neck was prepped and draped in the usual fashion. The right internal jugular vein was located with ultrasound. It was patent, compressed easily, and had no filling defects. The vein was then punctured under ultrasound visualization. A guidewire was then passed centrally into the inferior vena cava under fluoroscopic guidance. The puncture site was then dilated and the filter sheath inserted. It was passed to the infra renal vena cava. A venacavagram was done which showed no cava clot and an acceptable size. The renal veins were identified. The filter was then passed through the sheath and deployed in the infra renal vena cava in an upright position. Satisfied with the positioning of the filter, the sheath was removed. Pressure was applied to the puncture site. Adequate hemostasis was obtained and a sterile dressing was applied. The patient left the operation room in satisfactory condition and tolerated the procedure well. All needle and sponge counts were correct at the end of the procedure. I attest to the content of the Intraoperative Record and any orders documented therein. Any exceptions are noted below.
--- NOTE | 2019-10-12 08:46 | Post Anesthesia Assessment ---
Date of Service October 12, 2019 Post Sedation Assessment Vital Signs Temp Pulse Pulse Resp BP Pulse Ox 10/12/19 08:41 62 15 104/56 L 98 10/12/19 08:36 64 14 96/43 L 100 10/12/19 08:32 63 14 84/45 L 100 10/12/19 08:27 60 14 118/67 100 10/12/19 08:22 55 L 12 142/74 H 100 10/12/19 08:20 60 12 148/79 H 100 10/12/19 07:26 36.7 C 51 L 17 116/79 97 10/12/19 05:30 36.4 C L 53 L 18 117/80 99 10/12/19 00:00 63 10/11/19 23:45 36.6 C 55 L 19 123/75 98 10/11/19 20:12 36.5 C 62 18 115/75 97 10/11/19 15:59 36.6 C 57 L 18 120/79 99 10/11/19 15:53 43 L 10/11/19 12:08 36.4 C L 52 L 20 138/81 99 Recovery Score Activity: Moves 4 extremities Respiration: Deep Breath/Cough Circulation: +/-20% PreAnes Value Consciousness: Arouseable (by name) Oxygen Saturation: > 92% On Room Air Post Anesthesia Score: 9 Discharge Sedation Level of Care: Fast Track Phase II Post Sedation Plan On clinical assessment, the patient appears to have tolerated the sedation without complications. Patient is recovering as anticipated. Patient will continue to be monitored by nursing and may be discharged when sedation discharge criteria are met per below protocol. Upon Completions of procedure up to 15 minutes continue every 5 minute vital signs and the P.A.R. score; then discharge to a Phase I or Fast Track to Phase II per the following guidelines: * Discharge Patient to appropriate Phase II area if PAR is 8 or greater or return to pre- procedure baseline. The post - procedure orders will be as di rected. * If PAR score is less than 8 or not return to pre-procedure baseline then patient will follow Phase I monitoring till PAR is reached for Phase II. The Phase I may be done in procedure room or may call to secure a Phase I area. * If naloxone or flumazenil are used for reversal, hold in Phase I for continued monitoring from when last reversal dose was given for a minimum of 60 minutes or longer pending the nurse and/or physician discretion of patient condition before discharge to Phase II. Please call the Sedation Physician to re-evaluate and complete post-note for discharge to Phase II area. Do NOT discharge from procedure sedation or Phase 1 until post- sedation evaluation note is complete by procedure /sedation MD Sedation Discharge Instructions to be given to the patient at discharge to home.
[2019-10-12] MEDS: DICLOFENAC SODIUM 75 MG TABCR PO SCH ×2 (09:06→17:04)
[2019-10-12] MEDS: FERROUS SULFATE 325 MG TAB PO SCH (09:08)
[2019-10-12] MEDS: CALCIUM 600MG + VIT D 400 IU TAB PO SCH ×2 (09:08→21:09)
[2019-10-12] MEDS: ARTIFICIAL TEARS OP SCH ×3 (09:08→21:09)
[2019-10-12] MEDS: FUROSEMIDE 20 MG TAB PO SCH (09:09)
[2019-10-12] MEDS: LACTOBACILLUS ACIDOPHILUS (FLORANEX) TAB PO SCH (09:09)
[2019-10-12] MEDS: METOPROLOL TARTRATE 25 MG TAB PO SCH ×2 (09:09→21:09)
[2019-10-12] MEDS: FAMOTIDINE 20 MG TAB PO SCH ×2 (09:09→21:09)
[2019-10-12] MEDS: GABAPENTIN 400 MG CAP PO SCH ×3 (09:09→21:09)
[2019-10-12] MEDS: lisinopriL 40 MG TAB PO SCH (09:10)
[2019-10-12] MEDS: DOCUSATE SODIUM/SENNA 50/8.6MG TAB PO SCH ×2 (09:10→21:08)
[2019-10-12] MEDS: ACETAMINOPHEN 325 MG TAB PO PRN (13:46)
--- NOTE | 2019-10-12 14:42 | Hospitalist Progress Note ---
Date of Service October 12, 2019 Assessment & Plan (1) Edema: Substantial leg edema to both legs, but worse in the left with the DVT. Per prior notes, she has a long history of lymphedema. - Will order gentle SCOTTY wraps to right leg. Will review whether SCOTTY wrap to left leg with DVT is acceptable. (2) Hematuria: Coagulation defect due to Xarelto (intended) resulting in hematuria, to be considered for IVC filter. Recurrent hematuria in the setting of anticoagulation. H&H appears stable around baseline at 11.7. - Hgb down slightly today to 10.9, but still near baseline. - Urine cytology was negative for high-grade urothelial carcinoma - Consulted urology -> Plan for outpatient CT and cystoscopy (3) DVT (deep venous thrombosis): Extensive left lower leg clot, history of left arm DVT secondary to PICC l ine. Patient also has history of DVT 20 years ago. - IVC filter placed by Dr. Larson on 10/11 without complication. - Will need to start anticoagulation & have IVF filter removed once hematuria evaluation is complete/resolved. (4) Atrial fibrillation: Chronic atrial fibrillation. Patient had not previously been anticoagulated for this before the Xeralto for blood clot - Continue home metoprolol - Hold rivaroxaban as above (5) Hypertension: BP is 120/70 today. - Continue home metoprolol, lisinopril (6) COPD (chronic obstructive pulmonary disease): Patient reports she has not required inhalers or breathing treatments for some time. No exacerbation. - Monitor (7) Elevated alkaline phosphatase level: 298 - Appears to be elevated since August. - Follow up with PCP Admission and Anticipated Discharge Date Admission Date: October 10, 2019 Subjective Still with some left leg pain. Reports no fevers/chills, chest pain, shortness of breath, abdominal pain, nausea, or vomiting. Physical Exam Constitutional: WD/WN, vitals as above Eyes: EOM intact bilaterally; no conjunctival abnormality ENMT: external ear and nose normal, oropharynx normal Neck: trachea midline, no thyromegaly normal visual inspection Respiratory: normal respiratory effort, lungs clear to auscultation no respiratory distress Cardiovascular: RRR, no murmur, no edema Gastrointestinal (Abdomen): Inspection/Auscultation: abdomen normal to inspect ion; abdomen not distended Musculoskeletal: no cyanosis or clubbing, extremities motor strength 5/5 Skin: no rashes, warm and dry Neurologic: moves all extremities and awake Psychiatric: Orientation: alert, oriented to person and cooperative Results & Data Results & Data ([facility]) Vital Signs (Past 12 Hours) Vital Signs Temp Pulse Pulse Resp BP Pulse Ox 10/12/19 12:07 36.6 C 68 18 121/71 96 10/12/19 10:00 56 L 18 102/68 99 10/12/19 09:30 63 18 130/91 99 10/12/19 09:15 66 20 98 10/12/19 09:02 36.7 C 60 18 120/81 98 10/12/19 08:41 62 15 104/56 L 98 10/12/19 08:36 64 14 96/43 L 100 10/12/19 08:32 63 14 84/45 L 100 10/12/19 08:27 60 14 118/67 100 10/12/19 08:22 55 L 12 142/74 H 100 10/12/19 08:20 60 12 148/79 H 100 10/12/19 07:26 36.7 C 51 L 17 116/79 97 10/12/19 05:30 36.4 C L 53 L 18 117/80 99 PG Care Time/CCT Total # of Minutes Spent Total Time Spent with Patient: Total time spent is greater than 50% in coordination of care (as documented) at patient's floor/unit and/or counseling patient: Coding Level of Care Code 58433 Subseq Hosp Care Lvl 3 Diagnoses Edema R60.9 Hematuria R31.9 DVT (deep venous thrombosis) I82.409 Atrial fibrillation I48.91 Hypertension I10 COPD (chronic obstructive pulmonary disease) J44.9 Elevated alkaline phosphatase level R74.8
[2019-10-13] MEDS: TRAMADOL HCL 50 MG TABLET PO PRN (03:05)
[2019-10-13 07:03] LABS: Hematocrit (blood only) 35.3 % (37-47); Hemoglobin 11.1 g/dL (12.0-16.0); Mean Corpuscular Hemoglobin 31.6 pg (25-34); Mean Corpuscular Hgb Conc 31.4 g/dL (32-36); Mean Corpuscular Volume 100.6 fL (80-100); Mean Platelet Volume 10.7 fL (7.4-10.4); Platelet Count 211 K/uL (130-400); RDW Coefficient of Variation 13.7 % (11.5-14.5); RDW Standard Deviation 50.2 fL (36.4-46.3); Red Blood Count 3.51 M/uL (4.2-5.4); White Blood Count 7.19 K/uL (4.8-10.8)
[2019-10-13 07:38] LABS: BUN Creatinine Ratio 41.7 (10-20); Calcium 9.6 mg/dl (8.5-10.1); Est GFR (African American) 41.3; Est GFR (Non-African American) 35.6; Magnesium 2.4 mg/dl (1.8-2.4); Potassium 4.7 mmol/L (3.5-5.1)
[2019-10-13] MEDS: ARTIFICIAL TEARS OP SCH ×3 (08:23→20:33)
[2019-10-13] MEDS: LACTOBACILLUS ACIDOPHILUS (FLORANEX) TAB PO SCH (08:26)
[2019-10-13] MEDS: lisinopriL 40 MG TAB PO SCH (08:26)
[2019-10-13] MEDS: FERROUS SULFATE 325 MG TAB PO SCH (08:26)
[2019-10-13] MEDS: DICLOFENAC SODIUM 75 MG TABCR PO SCH (08:27)
[2019-10-13] MEDS: CALCIUM 600MG + VIT D 400 IU TAB PO SCH ×2 (08:27→20:33)
[2019-10-13] MEDS: GABAPENTIN 400 MG CAP PO SCH ×3 (08:27→20:33)
[2019-10-13] MEDS: FAMOTIDINE 20 MG TAB PO SCH ×2 (08:27→20:33)
[2019-10-13] MEDS: FUROSEMIDE 20 MG TAB PO SCH (08:27)
[2019-10-13] MEDS: METOPROLOL TARTRATE 25 MG TAB PO SCH ×2 (08:27→20:33)
[2019-10-13] MEDS: DOCUSATE SODIUM/SENNA 50/8.6MG TAB PO SCH ×2 (08:28→20:33)
--- NOTE | 2019-10-13 15:07 | Hospitalist Progress Note ---
Date of Service October 13, 2019 Assessment & Plan (1) GLORIA (acute kidney injury): Baseline Cr is ~0.8 - 1.1, eGFR ~50. - Cr has gradually edged up to 1.45 in the setting of furosemide for LE edema. This edema is long-standing and does not appear to be heart failure-related. - Will hold furosemide, but will defer IV fluids for now given her significant edema. (2) Edema: Substantial leg edema to both legs, but worse in the left with the DVT. Per prior notes, she has a long history of lymphedema. - Will review whether SCOTTY wrap to left leg with DVT is acceptable. - Will get ultrasound of right leg for increased right leg swelling. Will order leg wraps. (3) Hematuria: Coagulation defect due to Xarelto (intended) resulting in hematuria, to be considered for IVC filter. Recurrent hematuria in the setting of anticoagulation. H&H appears stable around baseline at 11.7. - Hgb down slightly today to 10.9, but still near baseline. - Urine cytology was negative for high-grade urothelial carcinoma - Consulted urology -> Plan for outpatient CT and cystoscopy. Discussed with Dr. Alston today. They really cannot do cystoscopy in the hospital and need to do it outpatient. (4) DVT (deep venous thrombosis): Extensive left lower leg clot, history of left arm DVT secondary to PICC line. Patient also has history of DVT 20 years ago. - IVC filter placed by Dr. Larson on 10/11 without complication. - Will need to start anticoagulation & have IVF filter removed once hematuria evaluation is complete/resolved. (5) Atrial fibrillation: Chronic atrial fibrillation. Patient had not previously been anticoagulated for this before the Xeralto for blood clot. - Continue home metoprolol - Hold rivaroxaban as above (6) Hypertension: BP is 100/70 today. - Continue home metoprolol, lisinopril (7) COPD (chronic obstructive pulmonary disease): Patient reports she has not required inhalers or breathing treatments for some time. No exacerbation. - Monitor (8) Elevated alkaline phosphatase level: 298 - Appears to be elevated since August. - Follow up with PCP Admission and Anticipated Discharge Date Admission Date: October 10, 2019 Subjective Doing well today. Right hip is painful. Left leg not as painful. Reports no fevers/chills, chest pain, shortness of breath, abdominal pain, nausea, or vomiting. Physical Exam Constitutional: WD/WN, vitals as above Eyes: EOM intact bilaterally; no conjunctival abnormality ENMT: external ear and nose normal, oropharynx normal Neck: trachea midline, no thyromegaly normal visual inspection Respiratory: normal respiratory effort, lungs clear to auscultation no respiratory distress Cardiovascular: RRR, no murmur, no edema Gastrointestinal (Abdomen): Inspection/Auscultation: abdomen normal to inspection; abdomen not distended Musculoskeletal: no cyanosis or clubbing, extremities motor strength 5/5 Skin: no rashes, warm and dry Neurologic: moves all extremities and awake Psychiatric: Orientation: alert, oriented to person and cooperative Results & Data Results & Data ([facility]) Vital Signs (Past 12 Hours) Vital Signs Temp Pulse Pulse Resp BP Pulse Ox 10/13/19 12:14 36.8 C 90 20 103/73 99 10/13/19 08:07 59 L 10/13/19 07:11 36.4 C L 67 20 105/69 97 10/13/19 04:00 36.5 C 64 16 114/79 96 PG Care Time/CCT Total # of Minutes Spent Total Time Spent with Patient: Total time spent is greater than 50% in coordination of care (as documented) at patient's floor/unit and/or counseling patient: Coding Level of Care Code 47241 Subseq Hosp Care Lvl 3 Diagnoses GLORIA (acute kidney injury) N17.9 Edema R60.9 Hematuria R31.9 DVT (deep venous thrombosis) I82.409 Atrial fibrillation I48.91 Hypertension I10 COPD (chronic obstructive pulmonary disease) J44.9 Elevated alkaline phosphatase level R74.8
--- NOTE | 2019-10-13 16:24 | XRay Report ---
XR hip RT min 2V CLINICAL HISTORY: Right hip pain COMPARISON: 04/09/2019, CT scan dated 04/07/2019 DISCUSSION: There are severe osteoarthritic changes present of the right hip, with persistent subchon dral sclerosis and flattening of the femoral head, finding which may indicate coexistent avascular ne crosis. While an infectious etiology cannot be excluded, the prior aspiration performed on 04/09/2019 , revealed no growth. IMPRESSION: 1. No acute fractures 2. Persistent advanced arthritic changes present within the right hip with subchondral sclerosis and erosive change. There is persistent femoral head deformity. ACT 112: Negative or not required by law. Electronically signed by: Geoff Huang M.D. 10/13/2019 4:23 PM
[2019-10-13] MEDS: ACETAMINOPHEN 325 MG TAB PO PRN (20:32)
--- NOTE | 2019-10-13 22:30 | Ultrasound Report ---
US venous doppler LE RT CLINICAL HISTORY: Right leg swelling COMPARISON STUDY: May 2019 FINDINGS: Grayscale color flow and spectral Doppler waveform analysis was performed. No thrombus is visualized within the common femoral vein. There is nonocclusive thrombus within the s uperficial femoral vein. No thrombus is visualized in the right popliteal vein or proximal trifurcati on veins. IMPRESSION: Nonocclusive right leg DVT involving the superficial femoral vein. ACT 112: Negative or not required by law. Electronically signed by: Geoff Huang M.D. 10/13/2019 10:29 PM
[2019-10-14 06:19] LABS: Hematocrit (blood only) 32.9 % (37-47); Hemoglobin 10.4 g/dL (12.0-16.0); Mean Corpuscular Hemoglobin 32.3 pg (25-34); Mean Corpuscular Hgb Conc 31.6 g/dL (32-36); Mean Corpuscular Volume 102.2 fL (80-100); Mean Platelet Volume 10.3 fL (7.4-10.4); Platelet Count 200 K/uL (130-400); RDW Coefficient of Variation 13.7 % (11.5-14.5); RDW Standard Deviation 50.9 fL (36.4-46.3); Red Blood Count 3.22 M/uL (4.2-5.4); White Blood Count 7.59 K/uL (4.8-10.8)
[2019-10-14 06:48] LABS: BUN Creatinine Ratio 43.2 (10-20); Calcium 9.2 mg/dl (8.5-10.1); Creatinine Clr Calc Pharmacy 37.3 ml/min; Est GFR (African American) 35.6; Est GFR (Non-African American) 30.7; Magnesium 2.3 mg/dl (1.8-2.4); Phosphorus 4.5 mg/dl (2.5-4.9); Potassium 5.3 mmol/L (3.5-5.1)
[2019-10-14] MEDS: CALCIUM 600MG + VIT D 400 IU TAB PO SCH ×2 (07:37→21:02)
[2019-10-14] MEDS: GABAPENTIN 400 MG CAP PO SCH ×3 (07:37→21:01)
[2019-10-14] MEDS: DOCUSATE SODIUM/SENNA 50/8.6MG TAB PO SCH ×2 (07:37→21:02)
[2019-10-14] MEDS: METOPROLOL TARTRATE 25 MG TAB PO SCH ×2 (07:37→21:02)
[2019-10-14] MEDS: FERROUS SULFATE 325 MG TAB PO SCH (07:37)
[2019-10-14] MEDS: LACTOBACILLUS ACIDOPHILUS (FLORANEX) TAB PO SCH (07:38)
[2019-10-14] MEDS: FAMOTIDINE 20 MG TAB PO SCH ×2 (07:38→21:01)
[2019-10-14] MEDS: ARTIFICIAL TEARS OP SCH ×3 (07:39→21:01)
--- NOTE | 2019-10-14 13:55 | Hospitalist Progress Note ---
Date of Service October 14, 2019 Assessment & Plan (1) GLORIA (acute kidney injury): Baseline Cr is ~0.8 - 1.1, eGFR ~50. - Cr has gradually edged up to 1.45 in the setting of furosemide for LE edema. This edema is long-standing and does not appear to be heart failure-related. - Held furosemide & lisinopril on 10/12. Cr on 10/13 up slightly. Will give small IV fluid bolus, but defer maintenance fluids for now given her significant edema. - If no improvement in Cr tomorrow, consult nephrology. (2) Edema: Substantial leg edema to both legs from bilateral DVTs. She has a long history of lymphedema. - Reviewed SCOTTY wraps in acute DVT. Per CHEST guidelines, it is acceptable. - Asked RN to wrap legs. 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 Recurrent hematuria in the setting of anticoagulation. - Hgb down slightly today to 10.4, but still near baseline. - Urine cytology was negative for high-grade urothelial carcinoma - Consulted urology -> Plan for outpatient CT and cystoscopy. Discussed with Dr. Alston yesterday. They really cannot do cystoscopy in the hospital and need to do it outpatient. He could do it this week if we can get her back to [facility]. (4) DVT (deep venous thrombosis): Extensive left lower leg clot, history of left arm DVT secondary to PICC line. Smaller DVT in the right leg. Patient also has history of DVT 20 years ago. - IVC filter placed by Dr. Larson on 10/11 without complication. - Will need to start anticoagulation & have IVF filter removed once hematuria evaluation is complete. (5) Atrial fibrillation: Chronic atrial fibrillation. Patient had not previously been anticoagulated for this before the Xeralto for blood clot. - Continue home metoprolol - Hold rivaroxaban as above (6) Hypertension: BP is 110/65 today. - Continue home metoprolol - Hold ACEi for GLORIA (7) COPD (chronic obstructive pulmonary disease): Patient reports she has not required inhalers or breathing treatments for some time. No exacerbation. - Monitor (8) Elevated alkaline phosphatase level: 298 - Appears to be elevated since August. - Follow up with PCP Dispo: Ideally GLORIA improves and she can go back to [facility] on Tuesday or Tuesday and get her outpatient cystoscopy this week. Daughter asks for a call on Tuesday as she is paying $290/day for a bed-hold at [facility]. If she will not be discharge soon, she asks for notice ESTEE so she can release the bed and save money. Admission and Anticipated Discharge Date Admission Date: October 10, 2019 Subjective Doing well today. Her right hip is still painful from when they pulled/strained it getting her on a bedpan. Reports no fevers/chills, chest pain, shortness of breath, abdominal pain, nausea, or vomiting. Physical Exam Constitutional: WD/WN, vitals as above Eyes: EOM intact bilaterally; no conjunctival abnormality ENMT: external ear and nose normal, oropharynx normal Neck: trachea midline, no thyromegaly normal visual inspection Respiratory: normal respiratory effort, lungs clear to auscultation no respiratory distress Cardiovascular: Rate/Rhythm: regular rate and regular rhythm Heart Sounds: normal S1 and normal S2 Extremities: + edema (Large edema L>R) Gastrointestinal (Abdomen): Inspection/Auscultation: abdomen normal to inspection; abdomen not distended Musculoskeletal: no cyanosis or clubbing, extremities motor strength 5/5 Skin: no rashes, warm and dry Neurologic: moves all extremities and awake Psychiatric: Orientation: alert, oriented to person and cooperative Results & Data Results & [facility] ([facility]) Vital Signs (Past 12 Hours) Vital Signs Temp Pulse Resp BP Pulse Ox 10/14/19 11:50 36.7 C 74 18 112/66 97 10/14/19 07:16 36.3 C L 55 L 20 106/68 97 10/14/19 04:29 36.7 C 68 20 96/64 L PG Care Time/CCT Total # of Minutes Spent Total Time Spent with Patient: Total time spent is greater than 50% in coordination of care (as documented) at patient's floor/unit and/or counseling patient: Coding Level of Care Code 98894 Subseq Hosp Care Lvl 3 Diagnoses GLORIA (acute kidney injury) N17.9 Edema R60.9 Hematuria R31.9 DVT (deep venous thrombosis) I82.409 Atrial fibrillation I48.91 Hypertension I10 COPD (chronic obstructive pulmonary disease) J44.9 Elevated alkaline phosphatase level R74.8
[2019-10-14] MEDS ORDERED: SODIUM CHLORIDE 0.9% 500 ML IV ONE (16:25)
[2019-10-14] MEDS: TRAMADOL HCL 50 MG TABLET PO PRN (21:04)
[2019-10-14 23:13] VITALS: TEMP 97.9
[2019-10-15 05:15] LABS: Hematocrit (blood only) 31.8 % (37-47); Hemoglobin 10.1 g/dL (12.0-16.0); Mean Corpuscular Hemoglobin 32.3 pg (25-34); Mean Corpuscular Hgb Conc 31.8 g/dL (32-36); Mean Corpuscular Volume 101.6 fL (80-100); Mean Platelet Volume 10.4 fL (7.4-10.4); Platelet Count 209 K/uL (130-400); RDW Coefficient of Variation 13.9 % (11.5-14.5); RDW Standard Deviation 51.1 fL (36.4-46.3); Red Blood Count 3.13 M/uL (4.2-5.4); White Blood Count 7.48 K/uL (4.8-10.8)
[2019-10-15] MEDS: ACETAMINOPHEN 325 MG TAB PO PRN (05:25)
[2019-10-15 05:40] LABS: BUN Creatinine Ratio 47.8 (10-20); Calcium 9.1 mg/dl (8.5-10.1); Creatinine Clr Calc Pharmacy 49.3 ml/min; Est GFR (African American) 49.9; Est GFR (Non-African American) 43.1; Magnesium 2.3 mg/dl (1.8-2.4); Potassium 4.7 mmol/L (3.5-5.1)
[2019-10-15 07:22] VITALS: BP 102/64; O2SAT 96
[2019-10-15] MEDS: LACTOBACILLUS ACIDOPHILUS (FLORANEX) TAB PO SCH (08:18)
[2019-10-15] MEDS: METOPROLOL TARTRATE 25 MG TAB PO SCH (08:18)
[2019-10-15] MEDS: FERROUS SULFATE 325 MG TAB PO SCH (08:18)
[2019-10-15] MEDS: GABAPENTIN 400 MG CAP PO SCH ×2 (08:19→13:29)
[2019-10-15] MEDS: DOCUSATE SODIUM/SENNA 50/8.6MG TAB PO SCH (08:19)
[2019-10-15] MEDS: FAMOTIDINE 20 MG TAB PO SCH (08:19)
[2019-10-15] MEDS: CALCIUM 600MG + VIT D 400 IU TAB PO SCH (08:19)
[2019-10-15] MEDS: ARTIFICIAL TEARS OP SCH ×2 (08:19→13:29)
[2019-10-15 15:19] VITALS: PULSE 74
--- NOTE | 2019-10-21 23:48 | Discharge Summary ---
Date of Service October 15, 2019 Principal Diagnosis hematuria Discharge Exam Constitutional: WD/WN, vitals as above Eyes: EOM intact bilaterally; no conjunctival abnormality ENMT: external ear and nose normal, oropharynx normal Neck: trachea midline, no thyromegaly normal visual inspection Respiratory: normal respiratory effort, lungs clear to auscultation no respiratory distress Cardiovascular: Rate/Rhythm: regular rate and regular rhythm Heart Sounds: normal S1 and normal S2 Extremities: + edema (Large edema L>R) Gastrointestinal (Abdomen): Inspection/Auscultation: abdomen normal to inspection; abdomen not distended Musculoskeletal: no cyanosis or clubbing, extremities motor strength 5/5 Skin: no rashes, warm and dry Neurologic: moves all extremities and awake Psychiatric: Orientation: alert, oriented to person and cooperative Discharge Data Allergies Allergy/AdvReac Type Severity Reaction Status Date / Time cephalexin Allergy Unknown HIVES Verified 08/13/19 08:31 strawberry Allergy Unknown hives Verified 08/13/19 08:31 Unclassified Drugs Allergy Unknown DIAL SOAP Uncoded 08/13/19 08:31 - RASH Consultations 10/10/19 12:37 Consult Urology Routine Consult Vascular Surgery Routine Procedures Performed Operation Date: 10/12/19 08:00 Actual Procedures p Insertion of Vena Cava Filter, Right Jugular Approach, Ultrasound Localization of Right Jugular Artery, Fluoroscopy for Positioning, Moderate Sedation [id number] 0841(Right) - Eliazar Larson MD Ordered Studies 10/11/19 08:50 US venous doppler LE LT Routine 10/12/19 08:00 EV IVC filter placement Routine 10/13/19 15:09 US venous doppler LE RT Routine Hospital Course (1) GLORIA (acute kidney injury): Baseline Cr is ~0.8 - 1.1, eGFR ~50. - Cr has gradually edged up to 1.45 in the setting of furosemide for LE edema. This edema is long-standing and does not appear to be heart failure-related. - Held furosemide & lisinopril on 10/12. Cr on 10/13 up slightly. Will give small IV fluid bolus, but defer maintenance fluids for now given her significant edema. - creat improved to 1.2 on day of discharge. recheck bmp in 1 week. If BP can tolerate it and creatinine is normal, then can start scotty inhibitor. will f/u with Urology this wekk. (2) Edema: Substantial leg edema to both legs from bilateral DVTs. She has a long history of lymphedema. - Reviewed SCOTTY wraps in acute DVT. Per CHEST guidelines, it is acceptable. - Asked RN to wrap legs. 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 Recurrent hematuria in the setting of anticoagulation. - Hgb down slightly today to 10.4, but still near baseline. - Urine cytology was negative for high-grade urothelial carcinoma - Consulted urology -> Plan for outpatient CT and cystoscopy. Discussed with Dr. Alston yesterday. They really cannot do cystoscopy in the hospital and need to do it outpatient. He could do it this week if we can get her back to [facility]. (4) DVT (deep venous thrombosis): Extensive left lower leg clot, history of left arm DVT secondary to PICC line. Smaller DVT in the right leg. Patient also has history of DVT 20 years ago. - IVC filter placed by Dr. Larson on 10/11 without complication. - Will need to start anticoagulation & have IVF filter removed once hematuria evaluation is complete. (5) Atrial fibrillation: Chronic atrial fibrillation. Patient had not previously been anticoagulated for this before the Xeralto for blood clot. - Continue home metoprolol - Hold rivaroxaban as above (6) Hypertension: BP is 110/65 today. - Continue home metoprolol (7) COPD (chronic obstructive pulmonary disease): Patient reports she has not required inhalers or breathing treatments for some time. No exacerbation. - Monitor (8) Elevated alkaline phosphatase level: 298 - Appears to be elevated since August. - Follow up with PCP . Total Time Total Time Spent Total Time Spent (In Minutes): 32 Discharge Plan Discharge Items Patient Disposition: [facility] Reason For Visit: GROSS HEMATURIA Discharge Diagnosis: gross hematuria Activity: Resume your previous activity Non-emergency contact: Primary Care Provider Call non-emergency contact if: you have any medication questions Follow-up/Referrals: Nitin Alston DO [Physician] - 10/18/19 1:00 pm (Please, follow up at [facility] Urology Office with Dr. Nitin Alston on October 17 at 1:00 pm for a CYSTOSCOPY. *The office is located at [address] [facility] in [place]. If you need to change this appointment, call the office at [phone]. There is no prep necessary for this procedure.) Baden,Haley [Primary Care Provider] - Diet: Heart Healthy Addtl Attending Provider Instructions: You have been hospitalized for an acute medical problem. During your stay at [facility], we have made an effort to correct the problem that brought you to the hospital while keeping you as comfortable as possible. Medications were used to bring your condition under control and your discharge instructions will include directions for any medications you should take after leaving the hospital. Please make sure you see your Primary Care Provider as part of your follow up plan. Will recommend folowup with Urology as an outpatient this week for cystoscopy. Will need to start anticoagulation & have IVF filter removed once hematuria evaluation is complete. Recommend PCP followup in 1-2 weeks. Recommend recheck BMP in 1 week to check kidney function. If normal, can restart scotty inhibitor if blood pressure tolerates this. Coronavirus disease 2019 (COVID-19) is a virus that causes a respiratory illness. It is caused by a coronavirus called 2019 novel coronavirus (2019- nCoV). There are many types of coronavirus. Coronaviruses are a very common cause of bronchitis. They may sometimes cause lung infection(pneumonia). Symptoms can range from mild to severe respiratory illness. These viruses are also foundin some animals. COVID-19 was first found in people in [facility], in late 2019. In 2020, several cases of COVID-19 have been confirmed in the [place] Public health officials are working to find the source. How the virus spreads is not yet fully known. It may be spread through droplets of fluid that a person coughs or sneezes into the air. It may be spread if you touch a surface with virus on it, such as a handle or object, and then touch your mouth. What are the symptoms of COVID-19? Some people have no symptoms or mild symptoms. Symptoms may appear 2 to 14 days after contact with the virus. Symptoms can include: Fever Coughing Trouble breathing What are possible complications from COVID-19? In many cases, this virus can cause infection (pneumonia) in both lungs. In some cases, this can cause . How is COVID-19 diagnosed? Your healthcare provider will ask about your symptoms. He or she will also ask about your recent travel and contact with sick people. Testing for the virus is only done through the CDC. If yourhealthcare provider thinks you may have COVID- 19, he or she will work with your local health department and the CDC on testing. Follow all instructions from your healthcare provider. COVID-19 is diagnosed by: Nasal and throat swab. A cotton-tipped swab is wiped inside your nose or throat. This is done to check for viruses in your nasal mucus. Sputum culture. A small sample of mucus coughed from your lungs (sputum) is collected if you have a cough. It is checked for the virus. How is COVID-19 treated? There is currently no medicine to treat the virus. Treatment is done to help your body while it fights the virus. This is known as supportive care. Supportive care may include: Pain medicine. These include acetaminophen and ibuprofen. They are used to help ease pain and reduce fever. Bed rest. This helps your body fight the illness. For severe illness, you may need to stay in the hospital. Care during severe illness may include: IV (intravenous) fluids.These are given through a vein to help keep your body hydrated. Oxygen. Supplemental oxygen or ventilation with a breathing machine (ventilator) may be given. This is done to keep enough oxygen in your body. Are you at risk for COVID-19? If youve been to a place where people have been sick with this virus, you are at risk for infection. You are at risk if you: Recently traveled to an affected area Had contact with a sick person who recently traveled to this area Had contact with a person who was diagnosed with COVID-19 How can COVID-19 be prevented? There is no vaccine yet. The best prevention is to not have contact with the virus. The CDC advises that people should not travel to areas where there are COVID-19 outbreaks right now for any reason that is not urgent. To help prevent spreading the infection, wash your hands often, or use an alcohol-basedhand lock setter. If you are in an area with COVID-19: Wash your hands often. Or use an alcohol-based hand lock setter often. Only touch your eyes, nose, or mouth with clean hands. Dont have contact with people who are sick. Follow local instructions about being in public. For example, you may be told to not use public transport for a period of time. Stay away from markets that have live or animals. Wash your hands after touching any animals. Don't touch animals that may be sick. Dont share eating or drinking tools with sick people. Dont kiss someone who is sick. Clean surfaces often with disinfectant. If you were in an area with COVID-19 in the last 14 days: Call your healthcare provider. He or she can talk with local health staff to see what action may be needed. Follow all instructions from your provider. Take your temperature every morning and evening for at least 14 days. This is to check for fever. Keep a record of the readings. Keep watch for symptoms of the virus. Tell your provider right away if you have symptoms. If you were in an area with COVID-19 and have a fever or other symptoms: Dont panic. Keep in mind that other illnesses can cause similar symptoms. Stay away from work, school, and public places. Limit physical contact with family members. Don't kiss anyone or share eating or drinking utensils. Clean surfaces you touch with disinfectant. This is to help prevent the virus from spreading. Call your healthcare provider. Explain that you have been exposed to COVID-19 and have symptoms. Do this before going to any hospital. Wait for instructions. Keep in mind that healthcare staff may wear protective equipment such as masks, gowns, gloves, and eye protection. You may be put in a separate room. This is to prevent the possible virus from spreading. Tell the healthcare staff about recent travel. This includes local travel on public transport. Staff may need to find other people you have been in contact with. Follow all instructions the healthcare staff give you. If you have been diagnosed with COVID-19 Follow all instructions from your healthcare provider. Dont leave your home, except to get medical care. Call your healthcare providers office before going. They can prepare and give you instructions. This will help prevent the virus from spreading. Dont go to work, school, or public areas. Dont use public transport or taxis. Stay away from other people in your home. Have them wear face masks around you. Dont share household items or food. Wear a face mask if you can. This includes at home or in a medical facility. Cover your face with a tissue when you cough or sneeze. Throw the tissue away. Wash your hands. Wash your hands often. Caregivers should: Follow all instructions from healthcare staff. Wear a face mask and protective clothing as advised. Wash hands often. Keep track of the sick persons symptoms. Clean surfaces, fabrics, and laundry thoroughly. Keep other people away from the sick person. When to call your healthcare provider Call your healthcare provider: If youve recently traveled and have symptoms If you have been diagnosed with COVID-19 and your symptoms are worse To learn more To find out more about COVID-19, visit the CDC website at www.cdc.gov/coronavirus/2019-ncov/index.html. [facility]. [address] [place] [address]. All rights reserved. This information is not intended as a substitute for professional medical care. Always follow your healthcare professional's instructions. This information has been adapted from [employer] Pending Studies at Discharge: No Stand-Alone Forms: My [facility] Skilled Items Patient informed of condition?: No DNR: Yes (DNR/DNI) Discharge Level of Care: Skilled Communicable Disease: No Discharge Prognosis: Stable Lines: None Urinary Catheter: No Medications and DC Order Prescriptions: Continued multivitamin Capsule 1 cap PO QAM Qty: 0 RF: 0 metoprolol tartrate 25 mg Tablet 25 mg PO BID Qty: 0 RF: 0 calcium carbonate-vitamin D3 [Calcium 500 + D] 500 mg(1,250mg) -200 unit Tablet 1 tab PO BID Qty: 0 RF: 0 furosemide 40 mg tablet 20 mg PO QAM Qty: 0 RF: 0 tizanidine 4 mg capsule 4 mg PO Q8H PRN (Reason: Muscle Pain) Qty: 0 RF: 0 artifi.tears(hypromellose)(PF) 0.3 % drops 1 drops OP TID RF: 0 bisacodyl [Dulcolax (bisacodyl)] 10 mg suppository 10 mg NM DAILY PRN (Reason: Constipation) RF: 0 Lactobacillus acidophilus Capsule 10 mg PO DAILY RF: 0 tramadol 50 mg tablet 50 mg PO Q12H PRN (Reason: Pain) RF: 0 Santyl 250 unit/gram ointment 1 appln TOP DAILY RF: 0 acetaminophen [Tylenol Arthritis Pain] 650 mg Tablet Extended Release 650 mg PO Q6H PRN (Reason: Pain) RF: 0 sennosides [senna] 8.6 mg Tablet 8.6 mg PO DAILY PRN (Reason: Constipation) RF: 0 famotidine 20 mg Tablet 20 mg PO BID RF: 0 magnesium hydroxide [Milk of Magnesia] 400 mg/5 mL Suspension 15 ml PO DAILY PRN (Reason: Constipation) RF: 0 Fleet Enema 19-7 gram/118 mL Enema 118 ml NM HS PRN (Reason: Constipation) RF: 0 gabapentin 300 mg Capsule 400 mg PO TID RF: 0 sennosides-docusate sodium 8.6-50 mg Tablet 1 tab-cap PO BID RF: 0 ferrous sulfate 325 mg (65 mg iron) Tablet,Delayed Release (Dr/Ec) 325 mg PO DAILY RF: 0 Discontinued aspirin [Aspir-81] 81 mg Tablet,Delayed Release (Dr/Ec) 81 mg PO DAILY Qty: 0 RF: 0 lisinopril 40 mg Tablet 40 mg PO DAILY Qty: 0 RF: 0 diclofenac sodium 75 mg Tablet,Delayed Release (Dr/Ec) 75 mg PO BID Qty: 0 RF: 0 Xarelto 15 mg Tablet 15 mg PO BID RF: 0 Xarelto 20 mg Tablet 20 mg PO DAILY RF: 0 Discharge Orders: Discharge Order (Routine); Ordered 10/15/19 Ordered By: Chapo Mcgovern Admission Data Admit Date/Time: 10/10/19 12:03 Attending Provider: Chapo Mcgovern Admit Provider: Tucker Ivy Primary Care Provider: Haley Johnston Other Providers: Raymond Avery ; Eliazar Larson Other Interventions: Discharge Summary Assessment (RN) Last Done: 10/15/19 15:14 DC Date/Time DO NOT enter until pt leaves facility: 10/15/19 16:00 Coding Level of Care Code D/C Day Management >30 mins Diagnoses GLORIA (acute kidney injury) N17.9 Edema R60.9 Hematuria R31.9 DVT (deep venous thrombosis) I82.409 Atrial fibrillation I48.91 Hypertension I10 COPD (chronic obstructive pulmonary disease) J44.9 Elevated alkaline phosphatase level R74.8 Time Spent (min) 32
== END 2019-10-15 16:00 | DRG 253 ==
LOC: 2S 12:03 → SUATTDRO 12:03 → 3E 10-14 13:39

== ENCOUNTER 2021-09-27 21:39 | Inpatient (IN) ==
[2021-09-27] MEDS ORDERED: SODIUM CHLORIDE 0.9% 1000ML 1,000 ML IV ONE (21:46)
[2021-09-27] MEDS ORDERED: NALOXONE HCL 0.4 MG/1 ML VIAL/CARP IV STA ×2 (21:57→22:15)
[2021-09-27 22:00] LABS: Basophils # (auto) 0.02 K/uL (0-0.2); Basophils % (auto) 0.2 %; Eosinophils % (auto) 1.2 %; Hematocrit (blood only) 41.9 % (37-47); Hemoglobin 12.7 g/dL (12.0-16.0); Immature Granulocytes # (auto) 0.05 K/uL (0.00-0.02); Immature Granulocytes % (auto) 0.6 %; Lymphocytes % (auto) 23.7 %; Mean Corpuscular Hemoglobin 30.9 pg (25-34); Mean Corpuscular Hgb Conc 30.3 g/dL (32-36); Mean Corpuscular Volume 101.9 fL (80-100); Mean Platelet Volume 10.4 fL (7.4-10.4); Monocytes # (auto) 0.81 K/uL (0.11-0.59); Monocytes % (auto) 10.1 %; Neutrophils # (auto) 5.13 K/uL (1.4-6.5); Neutrophils % (auto) 64.2 %; Nucleated RBC # (auto) 0.04 K/uL (0-0); Nucleated RBC % (auto) 0.5 %; Platelet Count 196 K/uL (130-400); RDW Coefficient of Variation 18.2 % (11.5-14.5); RDW Standard Deviation 67.1 fL (36.4-46.3); Red Blood Count 4.11 M/uL (4.2-5.4); White Blood Count 8.01 K/uL (4.8-10.8)
--- NOTE | 2021-09-27 22:02 | Emergency Department Note ---
Impression & Plan Acute alteration in mental status, Opiate overdose, Acute UTI, Elevated troponin ED Provider Note NAME: TARAN FREEMAN AGE: 76 SEX: F ARRIVES VIA: Ambulance INFORMANT: EMS ED PROVIDER(S): Alban Hanks MD CHIEF COMPLAINT: AMS, referred PLAN: Disposition: Admit MEDICAL DECISION MAKING: The patient is a 76-year-old woman with a past medical history of CHF, DVT on warfarin, atrial fibrillation, hypertension, COPD who presents to the emergency department from her halfway facility at [facility] for decreased responsiveness which was noted since being seen last at 1500 per EMS report. Patient is on chronic narcotics and RN did remove fentanyl patch upon arrival to the emergency department. On arrival, the patient is chronically ill-appearing responsive to loud voice and kellie on chest where she will open her eyes but will mumble only and go back to sleep. Her pupils are 1 mm and sluggish. The patient appears hypervolemic with 3+ bilateral lower extremity edema and anasarca. 0.2 mg of IV Narcan was ordered she did have good effect and the patient was more awake and verbal. EKG demonstrates atrial fibrillation without overt acute ischemia. Chest x-ray demonstrates bilateral diffuse airspace opacities which is nonspecific and may be consistent with pulmonary edema versus multifocal pneumonia. WBC, H/H and platelets within normal limits. Chemistry without metabolic acidosis. Electrolytes LFTs without significant abnormality. Lactic acid 0.8, within normal limits. LFTs without significant abnormality. Initial high-sensitivity troponin was elevated at 55.7, nonspecific. Lipase is not elevated. Procalcitonin is undetectable. Suspicious for infection with leukoesterase, WBC however with epithelial cells and no bacteria. Covid-19 RNA, NAAT negative. CT of the head was negative for acute process per preliminary stat rad report. Patient was treated empirically with ertapenem for suspected UTI and possible pneumonia. Given the patient is hypervolemic no indication for 30cc/kg of IVF. Case was discussed with Dr. Parekh, [facility] hospitalist, who will evaluate the patient for admission. Triage Nursing notes reviewed and agree them. Prior medical records reviewed Vital Signs: reviewed and remarkable for no significant abnormalities Differential diagnosis: Infection, hypoglycemia, electrolyte abnormalities, overdose, toxicologic, cardiac sources, intracerebral event, neurologic, trauma, as well as other pathologies. ER treatment provided: See below. Diagnostics interpreted by me: ECG: Atrial fibrillation, 71 bpm, no ectopy, no overt ST elevation or depression, QTC 434, QRS 88. Cardiac Monitoring: An order for continuous cardiac monitoring was placed and demonstrated atrial fibrillation, 71 bpm, no ectopy. Laboratory studies: See below Imaging studies: See below Consultation(s): Case was discussed with Dr. Parekh, [facility] hospitalist, who will evaluate the patient for admission. HPI: The patient is a 76-year-old woman with a past medical history of CHF, DVT on warfarin, atrial fibrillation, hypertension, COPD who presents to the emergency department from her halfway facility at [facility] for decreased responsiveness which was noted since being seen last at 1500 per EMS report. Patient is on chronic narcotics and RN did remove fentanyl patch upon arrival to the emergency department. ROS: See above HPI for pertinent positives & negatives. A total of 10 systems reviewed and were otherwise negative. VITALS:See Below PHYSICAL EXAMINATION: GENERAL: Awake, alert, chronically ill-appearing, in no distress HENT: Normocephalic, atraumatic. Oropharynx unremarkable. EYES: Normal conjunctiva. Sclera non-icteric. Pupils 1 mm and sluggish. NECK: Supple. No nuchal rigidity. FROM. No JVD. RESPIRATORY: Clear to auscultation. CARDIAC: Regular rate, normal rhythm. Extremities warm and well perfused. Pulses equal. ABDOMEN: Soft, non-distended. Anasarca. No tenderness to palpation. No rebound or guarding. No masses. RECTAL: Deferred. MUSCULOSKELETAL: Chest examination reveals no tenderness. The back is symmetr ical on inspection without obvious abnormality. There is no CVA tenderness to palpation. No joint edema. LOWER EXTREMITIES: Calves are equal size bilaterally and non-tender. 3+ BLE edema. No discoloration. NEURO: Opens eyes to loud voice and tap on chest but then continues to be somnolent. SKIN: No rash or jaundice noted. ED COURSE: Critical Care: I have personally spent greater than 65 minutes of critical care time in the direct management of this patient. This includes bedside care, interpretation of diagnostic studies, and testing, discussion with consultants, patient, and family members, and other required patient management activities. This 65 minutes is in excess of all separately billable procedures. Alban Hanks MD Past Med/Surg History Medical History Anemia Anosmia 2/2 resection of benign brain tumor Arthritis Atrial fibrillation dx few years ago - PCP monitors - on ASA, BB. Not on additional anticoagulati on due to fall risk and prior meningioma. Chronic constipation Cognitive communication deficit COPD (chronic obstructive pulmonary disease) Dizziness intermittent; h/o recent falls; has been WC bound since March 2019, now resides in [facility] due to immobility. 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 No longer on seizure medications. 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 History of laminectomy LUMBAR History of lumpectomy of left breast Left breast lumpectomy with needle localization (02/22/18): LMA#4 at [facility] -- LUE LIMB RESTRICTION History of mastectomy PARTIAL /XRT FINISHED 04/2018 History of ovarian cystectomy History of repair of hiatal hernia History of total knee replacement BILATERAL History of total shoulder replacement RIGHT S/P IVC filter DUE TO LEFT LOWER EXTREMITY DVT'S WITHOUT CLEAR ETIOLOGY 10/12/2019-OFF ANTICOAGULANTS CURRENTLY S/P PICC central line placement 04/2019 for cellulitis of R hip Family History Mother , Passed age 62 of [place] Diabetes Coronary heart disease Hypertension Stroke Father , Passed age 68 of accident (fell down steps) No problems noted. Brother Family history of diabetes mellitus Diabetes Brother No problems noted. Sister Slow to wake up after anesthesia twin sister Breast cancer Twin - Left Breast - Lumpectomy/Chemo/RXT Sister No problems noted. Sister No problems noted. Sister No problems noted. Sister No problems noted. Son Sarcoidosis Son No problems noted. Daughter No problems noted. Grandmother (Paternal) Family history of diabetes mellitus Grandmother (Maternal) Family history of diabetes mellitus Mother Family history of diabetes mellitus Social History Smoking Status: Former smoker Tobacco Type: Cigarettes Years Smoked: 2; Cigarettes Per Day: HX OF SOCIAL CIGARETTE, QUIT 25 YEARS AGO.; Hx Alcohol Use: No Hx Substance Use: No (pt unwilling to answer) Preferred Language: Persian Communication Ability: Impaired Visual Impairment: Limited Hearing Ability: Use of Hearing Aid Planning Feeder Required: Video and No Beliefs That Will Affect Care: None marital status: Current Living Situation: Personal Care Facility Current Living Situation Comment: [facility] 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 Feels Safe at Home: Declines to Answer caffeine: No Assistive Devices: Wheelchair Assistive Devices Comment: Pt unsure of needs but able to shake head yes to use of a wheelchair Allergies Allergies Allergy/AdvReac Type Severity Reaction Status Date / Time cephalexin Allergy Severe HIVES Verified 09/28/21 01:37 strawberry Allergy Severe hives Verified 09/28/21 01:37 sulfamethoxazole Allergy Mild Rash Verified 09/28/21 01:37 [From Bactrim] trimethoprim [From Bactrim] Allergy Mild Rash Verified 09/28/21 01:37 Unclassified Drugs Allergy Mild DIAL SOAP Uncoded 09/28/21 01:37 - RASH Home Meds Home Medications Medication Instructions Recorded Confirmed famotidine 20 mg tablet 20 mg PO BID 06/12/19 09/28/21 magnesium hydroxide 400 mg/5 mL 30 ml PO DIRECTED PRN 06/12/19 09/28/21 oral suspension (Milk of Magnesia) sennosides 8.6 mg tablet (senna) 8.6 mg PO DAILY PRN 06/12/19 09/28/21 Lactobacillus acidophilus 0 mg PO DAILY 07/03/19 09/28/21 artifi.tears(hypromellose)(PF) 0.3 1 drops OPB BID 07/03/19 09/28/21 % eye drops tizanidine 4 mg capsule 4 mg PO Q8H PRN #0 07/03/19 09/28/21 ferrous sulfate 325 mg (65 mg 325 mg PO QAM 10/10/19 09/28/21 iron) tablet,delayed release acetaminophen 325 mg tablet 650 mg PO Q6 PRN 12/07/19 09/28/21 (Tylenol) calcium carbonate 500 mg-vitamin 1 tab PO BID 12/07/19 09/28/21 D3 5 mcg (200 unit) tablet (Calcium 500 + D) oxycodone 5 mg tablet (Roxicodone) 10 mg PO Q4 PRN 12/07/19 09/28/21 gabapentin 400 mg capsule 400 mg PO TID 08/12/20 09/28/21 loratadine 10 mg tablet (Claritin) 10 mg PO QAM 08/12/20 09/28/21 oxycodone 5 mg tablet 5 mg PO Q4H PRN 08/12/20 09/28/21 cyanocobalamin (vitamin B-12) 1,000 mcg PO DAILY 09/28/21 09/28/21 1,000 mcg tablet (Vitamin B-12) diclofenac sodium 1 % topical gel 2 g TOPICAL QID 09/28/21 09/28/21 fentanyl 37.5 mcg/hour transdermal 1 patch TOPICAL [id number] 09/28/21 09/28/21 patch folic acid 1 mg tablet 1 mg PO DAILY 09/28/21 09/28/21 furosemide 40 mg tablet 40 mg PO DAILY 09/28/21 09/28/21 melatonin 5 mg tablet 5 mg PO HS 09/28/21 09/28/21 menthol 0.44 %-zinc oxide 20.6 % 1 applic TOPICAL .Q SHIFT PRN 09/28/21 09/28/21 topical ointment (Calmoseptine) multivitamin 1 tab PO DAILY 09/28/21 09/28/21 pantoprazole 40 mg tablet,delayed 40 mg PO BID 09/28/21 09/28/21 release polyethylene glycol 3350 17 gram 17 g PO DAILY 09/28/21 09/28/21 oral powder packet (Miralax) ropinirole 0.25 mg tablet 0.25 mg PO HS PRN 09/28/21 09/28/21 sennosides 8.6 mg-docusate sodium 1 tab-cap PO BID 09/28/21 09/28/21 50 mg tablet (Senna-S) vibegron 75 mg tablet (Gemtesa) 75 mg PO DAILY 09/28/21 09/28/21 warfarin 3 mg tablet 3 mg PO DAILY 09/28/21 09/28/21 Previous Rx's Medication Instructions Recorded oxybutynin chloride 5 mg 5 mg PO DAILY #30 tab 10/22/20 tablet,extended release 24 hr Results & Data (ED) Vital Signs Vital Signs - 24 hr 09/27/21 21:48 09/27/21 22:02 09/27/21 22:33 Temperature 36.9 C 36.9 C Temperature Source Oral Oral Pulse Rate 83 80 Pulse Rate [Right Finger] 77 Pulse Rhythm Regular Regular Pulse Rhythm [Right Finger] Regular Pulse Strength Normal Pulse Strength [Right Finger] Normal Respiratory Rate 19 22 18 Respiratory Effort / Characteristics Non-Labored Spontaneous Non-Labored Spontaneous Respiratory Depth Normal Normal Respiratory Pattern Regular Regular Blood Pressure 143/89 H Blood Pressure [Right Arm] 143/89 H Blood Pressure Mean 107 Blood Pressure Mean [Right Arm] 107 Blood Pressure Position Lying Blood Pressure Position [Right Arm] Lying Pulse Oximetry 92 92 96 Oxygen Delivery Method Room Air Room Air Nasal Cannula Oxygen Flow Rate 4 Sepsis Recent Fever Within 48 Hours No Sepsis New/Unexplained Change in Mental Status Yes Sepsis Action Taken by Nursing No Action Required 09/28/21 00:08 Temperature Temperature Source Pulse Rate Pulse Rate [Right Finger] 84 Pulse Rhythm Pulse Rhythm [Right Finger] Irregular Pulse Strength Pulse Strength [Right Finger] Normal Respiratory Rate 19 Respiratory Effort / Characteristics Non-Labored Spontaneous Respiratory Depth Normal Respiratory Pattern Blood Pressure Blood Pressure [Right Arm] 144/109 H Blood Pressure Mean Blood Pressure Mean [Right Arm] 120 Blood Pressure Position Blood Pressure Position [Right Arm] Lying Pulse Oximetry 94 Oxygen Delivery Method Nasal Cannula Oxygen Flow Rate 4 Sepsis Recent Fever Within 48 Hours Sepsis New/Unexplained Change in Mental Status Sepsis Action Taken by Nursing Laboratory Data Attestation: I reviewed the patient's lab results. Result diagrams: 09/27/21 21:50 09/27/21 21:20 Lab Results 0409/27/21 09/27/21 Range/Units 21:20 21:50 21:50 WBC 8.01 (4.8-10.8) K/uL RBC 4.11 L (4.2-5.4) M/uL Hgb 12.7 (12.0-16.0) g/dL Hct 41.9 (37-47) % MCV 101.9 H (80-100) fL MCH 30.9 (25-34) pg MCHC 30.3 L (32-36) g/dL RDW Std Deviation 67.1 H (36.4-46.3) fL RDW Coeff of Tatyana 18.2 H (11.5-14.5) % Plt Count 196 (130-400) K/uL MPV 10.4 (7.4-10.4) fL Immature Gran % (Auto) 0.6 % Neut % (Auto) 64.2 % Lymph % (Auto) 23.7 % Cook % (Auto) 10.1 % Eos % (Auto) 1.2 % Baso % (Auto) 0.2 % Neut # (Auto) 5.13 (1.4-6.5) K/uL Lymph # (Auto) 1.90 (1.2-3.4) K/uL Cook # (Auto) 0.81 H (0.11-0.59) K/uL Eos # (Auto) 0.10 (0-0.5) K/uL Baso # (Auto) 0.02 (0-0.2) K/uL Immature Gran # (Auto) 0.05 H (0.00-0.02) K/uL Absolute Nucleated RBC 0.04 H (0-0) K/uL Nucleated RBC % (auto) 0.5 % PT 37.4 H (9.0-12.0) Seconds INR 3.8 H (0.9-1.1) Sodium 141 (136-145) mmol/L Potassium 4.1 (3.5-5.1) mmol/L Chloride 103 (98-107) mmol/L Carbon Dioxide 33 H (21-32) mmol/L Anion Gap 5 (3-11) BUN 24 H (6-23) mg/dl Creatinine 0.99 (0.6-1.2) mg/dl Est Cr Clr Drug Dosing 70.1 ml/min Est GFR ( Amer) 64.6 ml/min Est GFR (Non-Af Amer) 55.7 ml/min BUN/Creatinine Ratio 24.2 H (10-20) Glucose 147 H (70-99(Fasting)) mg/dl POC Glucose (70-99) mg/dl Lactate (0.4-2.0) mmol/L Calcium 8.8 (8.5-10.1) mg/dl Phosphorus 4.0 (2.5-4.9) mg/dl Magnesium 2.6 H (1.7-2.4) mg/dl Total Bilirubin 0.7 (0.2-1.0) mg/dl AST 10 L (13-39) U/L ALT 8 (7-52) U/L Alkaline Phosphatase 92 (34-104) U/L Troponin I High Sens 55.7 H* (0-14) pg/ml Total Protein 6.3 (6.0-8.3) gm/dl Albumin 3.4 (3.4-5.0) gm/dl Globulin 2.9 (2.5-4.0) gm/dl Albumin/Globulin Ratio 1.2 (0.9-2) Lipase 25 (11-82) U/L Procalcitonin (0-0.5) ng/ml Urine Color Urine Appearance (Clear) Urine pH (4.5-7.5) Ur Specific Matthews (1.000-1.030) Urine Protein (Negative) Urine Glucose (UA) (Negative) Urine Ketones (Negative) Urine Blood (Negative) Urine Nitrite (Negative) Urine Bilirubin (Negative) Urine Urobilinogen (Negative) Ur Leukocyte Esterase (Negative) Urine WBC (Auto) (0-5) /hpf Urine RBC (Auto) (0-4) /hpf U Hyaline Cast (Auto) (0-5) /lpf U Epithel Cells (Auto) (0-5) /lpf Urine Bacteria (Auto) (Negative) Urine Yeast SARS-CoV-2, RNA, NAAT (NEGATIVE) 09/27/21 09/27/21 09/27/21 Range/Units 21:50 22:12 22:21 WBC (4.8-10.8) K/uL RBC (4.2-5.4) M/uL Hgb (12.0-16.0) g/dL Hct (37-47) % MCV (80-100) fL MCH (25-34) pg MCHC (32-36) g/dL RDW Std Deviation (36.4-46.3) fL RDW Coeff of Tatyana (11.5-14.5) % Plt Count (130-400) K/uL MPV (7.4-10.4) fL Immature Gran % (Auto) % Neut % (Auto) % Lymph % (Auto) % Cook % (Auto) % Eos % (Auto) % Baso % (Auto) % Neut # (Auto) (1.4-6.5) K/uL Lymph # (Auto) (1.2-3.4) K/uL Cook # (Auto) (0.11-0.59) K/uL Eos # (Auto) (0-0.5) K/uL Baso # (Auto) (0-0.2) K/uL Immature Gran # (Auto) (0.00-0.02) K/uL Absolute Nucleated RBC (0-0) K/uL Nucleated RBC % (auto) % PT (9.0-12.0) Seconds INR (0.9-1.1) Sodium (136-145) mmol/L Potassium (3.5-5.1) mmol/L Chloride (98-107) mmol/L Carbon Dioxide (21-32) mmol/L Anion Gap (3-11) BUN (6-23) mg/dl Creatinine (0.6-1.2) mg/dl Est Cr Clr Drug Dosing ml/min Est GFR ( Amer) ml/min Est GFR (Non-Af Amer) ml/min BUN/Creatinine Ratio (10-20) Glucose (70-99(Fasting)) mg/dl POC Glucose 134 H (70-99) mg/dl Lactate (0.4-2.0) mmol/L Calcium (8.5-10.1) mg/dl Phosphorus (2.5-4.9) mg/dl Magnesium (1.7-2.4) mg/dl Total Bilirubin (0.2-1.0) mg/dl AST (13-39) U/L ALT (7-52) U/L Alkaline Phosphatase (34-104) U/L Troponin I High Sens (0-14) pg/ml Total Protein (6.0-8.3) gm/dl Albumin (3.4-5.0) gm/dl Globulin (2.5-4.0) gm/dl Albumin/Globulin Ratio (0.9-2) Lipase (11-82) U/L Procalcitonin < 0.05 (0-0.5) ng/ml Urine Color Urine Appearance (Clear) Urine pH (4.5-7.5) Ur Specific Matthews (1.000-1.030) Urine Protein (Negative) Urine Glucose (UA) (Negative) Urine Ketones (Negative) Urine Blood (Negative) Urine Nitrite (Negative) Urine Bilirubin (Negative) Urine Urobilinogen (Negative) Ur Leukocyte Esterase (Negative) Urine WBC (Auto) (0-5) /hpf Urine RBC (Auto) (0-4) /hpf U Hyaline Cast (Auto) (0-5) /lpf U Epithel Cells (Auto) (0-5) /lpf Urine Bacteria (Auto) (Negative) Urine Yeast SARS-CoV-2, RNA, NAAT NEGATIVE (NEGATIVE) 09/27/21 09/28/21 09/28/21 Range/Units 22:26 00:09 00:50 WBC (4.8-10.8) K/uL RBC (4.2-5.4) M/uL Hgb (12.0-16.0) g/dL Hct (37-47) % MCV (80-100) fL MCH (25-34) pg MCHC (32-36) g/dL RDW Std Deviation (36.4-46.3) fL RDW Coeff of Tatyana (11.5-14.5) % Plt Count (130-400) K/uL MPV (7.4-10.4) fL Immature Gran % (Auto) % Neut % (Auto) % Lymph % (Auto) % Cook % (Auto) % Eos % (Auto) % Baso % (Auto) % Neut # (Auto) (1.4-6.5) K/uL Lymph # (Auto) (1.2-3.4) K/uL Cook # (Auto) (0.11-0.59) K/uL Eos # (Auto) (0-0.5) K/uL Baso # (Auto) (0-0.2) K/uL Immature Gran # (Auto) (0.00-0.02) K/uL Absolute Nucleated RBC (0-0) K/uL Nucleated RBC % (auto) % PT (9.0-12.0) Seconds INR (0.9-1.1) Sodium (136-145) mmol/L Potassium (3.5-5.1) mmol/L Chloride (98-107) mmol/L Carbon Dioxide (21-32) mmol/L Anion Gap (3-11) BUN (6-23) mg/dl Creatinine (0.6-1.2) mg/dl Est Cr Clr Drug Dosing ml/min Est GFR ( Amer) ml/min Est GFR (Non-Af Amer) ml/min BUN/Creatinine Ratio (10-20) Glucose (70-99(Fasting)) mg/dl POC Glucose (70-99) mg/dl Lactate 0.8 (0.4-2.0) mmol/L Calcium (8.5-10.1) mg/dl Phosphorus (2.5-4.9) mg/dl Magnesium (1.7-2.4) mg/dl Total Bilirubin (0.2-1.0) mg/dl AST (13-39) U/L ALT (7-52) U/L Alkaline Phosphatase (34-104) U/L Troponin I High Sens Cancelled (0-14) pg/ml Total Protein (6.0-8.3) gm/dl Albumin (3.4-5.0) gm/dl Globulin (2.5-4.0) gm/dl Albumin/Globulin Ratio (0.9-2) Lipase (11-82) U/L Procalcitonin (0-0.5) ng/ml Urine Color Yellow Urine Appearance Turbid A (Clear) Urine pH 8.0 H (4.5-7.5) Ur Specific Matthews 1.013 (1.000-1.030) Urine Protein 2+ H (Negative) Urine Glucose (UA) Negative (Negative) Urine Ketones Negative (Negative) Urine Blood 2+ H (Negative) Urine Nitrite Negative (Negative) Urine Bilirubin Negative (Negative) Urine Urobilinogen Negative (Negative) Ur Leukocyte Esterase 3+ H (Negative) Urine WBC (Auto) >30 H (0-5) /hpf Urine RBC (Auto) 10-30 H (0-4) /hpf U Hyaline Cast (Auto) 10-30 H (0-5) /lpf U Epithel Cells (Auto) 20-30 H (0-5) /lpf Urine Bacteria (Auto) Negative (Negative) Urine Yeast Not Reportable SARS-CoV-2, RNA, NAAT (NEGATIVE) Administered Medications Discontinued Medications Sodium Chloride (Nss 1000ml) 1,000 mls @ 999 mls/hr IV .[id number] ONE Stop: 09/27/21 22:46 Last Admin: 09/27/21 22:19 Dose: Not Given Documented by: [id number] Ertapenem (Invanz) 10 mls @ 2 mls/min IV NOW STA Stop: 09/27/21 23:31 Last Admin: 09/28/21 00:18 Dose: 2 mls/min Documented by: [id number] Naloxone HCl (Naloxone Hcl 0.4 Mg/1 Ml Vial/Carp) 0.2 mg IV NOW STA Stop: 09/27/21 21:58 Last Admin: 09/27/21 22:18 Dose: Not Given Documented by: [id number] Naloxone HCl (Naloxone Hcl Inj 1 Mg/Ml 2ml Syr) 2 mg INTNAS ONE ONE Stop: 09/27/21 22:07 Last Admin: 09/27/21 22:18 Dose: Not Given Documented by: [id number] Naloxone HCl (Naloxone Hcl 0.4 Mg/1 Ml Vial/Carp) Confirm Administered Dose 0.4 mg .ROUTE .STK-MED ONE Stop: 09/27/21 22:16 Last Admin: 09/27/21 22:18 Dose: Not Given Documented by: [id number] Naloxone HCl (Naloxone Hcl 0.4 Mg/1 Ml Vial/Carp) 0.2 mg IV NOW STA Stop: 09/27/21 22:16 Last Admin: 09/27/21 22:18 Dose: 0.2 mg Documented by: [id number] Imaging Data Radiologist's Impression: STATRAD Preliminary Findings Only See Final Report For Complete Findings CT HEAD: Motion artifact. Left frontotemporal encephalomalacia with overlying craniotomy defect. No visualized hemorrhage, hydrocephalus, or edema. Radiologist: Sotero Gaines MD Study ready at 23:18 and initial results transmitted at 23:38 Discharge Plan Visit Data Chief Complaint: Altered Mental Status Stated Complaint: ALTERED MENTAL STATUS ED Provider: Alban Hanks Discharge Problem: Acute alteration in mental status, Opiate overdose, Acute UTI, Elevated troponin Patient Disposition: Admitted As Inpatient Discharge Instructions Interventions: ED Discharge Assessment Last Done: 09/28/21 03:11 Discharge Problem: Opiate overdose Qualifiers: Encounter type: initial encounter Injury intent: accidental or unintentional Qualified Code(s): T40.601A - Poisoning by unspecified narcotics, accidental (unintentional), initial encounter
[2021-09-27] MEDS ORDERED: NALOXONE HCL INJ 1 MG/ML 2ML SYR INTNAS ONE (22:06)
[2021-09-27] MEDS ORDERED: NALOXONE HCL 0.4 MG/1 ML VIAL/CARP ONE (22:15)
[2021-09-27 22:26] LABS: INR 3.8 (0.9-1.1); Prothrombin Time 37.4 Seconds (9.0-12.0)
[2021-09-27 22:28] LABS: Albumin Globulin Ratio 1.2 (0.9-2); Albumin Level 3.4 gm/dl (3.4-5.0); BUN Creatinine Ratio 24.2 (10-20); Bilirubin,Total 0.7 mg/dl (0.2-1.0); Calcium 8.8 mg/dl (8.5-10.1); Creatinine Clr Calc Pharmacy 70.1 ml/min; Est GFR (African American) 64.6 ml/min; Est GFR (Non-African American) 55.7 ml/min; Globulin 2.9 gm/dl (2.5-4.0); Magnesium 2.6 mg/dl (1.7-2.4); Potassium 4.1 mmol/L (3.5-5.1); Total Protein 6.3 gm/dl (6.0-8.3)
[2021-09-27 22:34] LABS: Troponin I High Sensitivity 55.7 pg/ml (0-14)
[2021-09-27 22:46] LABS: Appearance Urine Turbid (Clear); Bacteria Urine Automated Negative (Negative); Bilirubin Urine Negative (Negative); Blood Urine 2+ (Negative); Color Urine Yellow; Epithelial Cell Urine Auto 20-30 /lpf (0-5); Glucose Urine UA Negative (Negative); Ketones Urine Negative (Negative); Leukocyte Esterase Urine 3+ (Negative); Nitrite Urine Negative (Negative); Specific Gravity Urine 1.013 (1.000-1.030); Urobilinogen Urine Negative (Negative); WBC Urine Automated >30 /hpf (0-5)
[2021-09-27 23:05] LABS: Protein Urine 2+ (Negative)
[2021-09-27] MEDS ORDERED: ERTAPENEM SODIUM 10 ML IV STA (23:27)
--- NOTE | 2021-09-28 01:20 | History & Physical Report ---
Date of Service September 28, 2021 Assessment & Plan (1) Acute alteration in mental status: Plan: Acute alteration mental status- Combination of opiate overdose and multifocal pneumonia (2) Opiate overdose: Plan: Patient did reportedly have a response to 0.2 mg of IV Narcan Will be holding all narcotics including fentanyl patch, oxycodone 5 and 10 mg dosages Some degree of her pain medications will need to be reinstituted once she is no longer lethargic (3) Multifocal pneumonia: Plan: Patient is allergic to cephalosporins Continue Invanz begun in the ED Duonebs every 4 hours while awake and every 2 hours when necessary. (4) Elevated troponin: Plan: Elevated troponin/atrial fibrillation/hypertension- The patient will be admitted to telemetry for serial cardiac enzymes, serial EKG's, cardiac rhythm monitoring and a 2-D echocardiogram with Dopplers. Troponin 55.7 upon admission, likely type II, supply demand mismatch Aspirin 81 mg daily chewable Warfarin supratherapeutic with an INR of 3.8, and will be held for now, following INR serially Hold furosemide for now (5) Atrial fibrillation: Plan: See above (6) Hypertension: Plan: See above (7) History of DVT (deep vein thrombosis): Plan: Holding warfarin as noted above (8) Stress incontinence in female: Plan: Continue vibegron History of Present Illness Chief Complaint: The patient is referred to the emergency department from her halfway facility at [facility] due to decreased responsiveness, which was new since last nursing observation at 1500 hrs. Primary Care Provider: [facility] The patient is a 76-year-old female with a past medical history including lumbar spinal stenosis, breast cancer, left lower extremity cellulitis, hip DJD, pressure ulcer of coccygeal region, DVT, GLORIA, urinary incontinence, lymphedema, hyperlipidemia, hypertension, seizure, GERD, Raynaud's and COPD. The patient was referred to the emergency department after EMS was called due to decreased responsiveness while at nursing care at [facility]. The patient's fentanyl patch was removed by nursing prior to transport due to concerns about a possible narcotic overdose. In the emergency department she did receive 0.2 mg of IV Narcan which reportedly had good effect, and the patient became more awake and verbal. At the time of my examination, the patient was lethargic but arousable Allergies Allergy/AdvReac Type Severity Reaction Status Date / Time cephalexin Allergy Severe HIVES Verified 09/28/21 01:37 strawberry Allergy Severe hives Verified 09/28/21 01:37 sulfamethoxazole Allergy Mild Rash Verified 09/28/21 01:37 [From Bactrim] trimethoprim [From Bactrim] Allergy Mild Rash Verified 09/28/21 01:37 Unclassified Drugs Allergy Mild DIAL SOAP Uncoded 09/28/21 01:37 - RASH Home Medications Medication Instructions Recorded Confirmed Type famotidine 20 mg tablet 20 mg PO BID 06/12/19 09/28/21 History magnesium hydroxide 400 mg/5 mL 30 ml PO DIRECTED PRN 06/12/19 09/28/21 History oral suspension (Milk of Magnesia) sennosides 8.6 mg tablet (senna) 8.6 mg PO DAILY PRN 06/12/19 09/28/21 History Lactobacillus acidophilus 0 mg PO DAILY 07/03/19 09/28/21 History artifi.tears(hypromellose)(PF) 0.3 1 drops OPB BID 07/03/19 09/28/21 History % eye drops tizanidine 4 mg capsule 4 mg PO Q8H PRN #0 07/03/19 09/28/21 History ferrous sulfate 325 mg (65 mg 325 mg PO QAM 10/10/19 09/28/21 History iron) tablet,delayed release acetaminophen 325 mg tablet 650 mg PO Q6 PRN 12/07/19 09/28/21 History (Tylenol) calcium carbonate 500 mg-vitamin 1 tab PO BID 12/07/19 09/28/21 History D3 5 mcg (200 unit) tablet (Calcium 500 + D) oxycodone 5 mg tablet (Roxicodone) 10 mg PO Q4 PRN 12/07/19 09/28/21 History gabapentin 400 mg capsule 400 mg PO TID 08/12/20 09/28/21 History loratadine 10 mg tablet (Claritin) 10 mg PO QAM 08/12/20 09/28/21 History oxycodone 5 mg tablet 5 mg PO Q4H PRN 08/12/20 09/28/21 History oxybutynin chloride 5 mg 5 mg PO DAILY #30 tab 10/22/20 09/28/21 Rx tablet,extended release 24 hr cyanocobalamin (vitamin B-12) 1,000 mcg PO DAILY 09/28/21 09/28/21 History 1,000 mcg tablet (Vitamin B-12) diclofenac sodium 1 % topical gel 2 g TOPICAL QID 09/28/21 09/28/21 History fentanyl 37.5 mcg/hour transdermal 1 patch TOPICAL [id number] 09/28/21 09/28/21 History patch folic acid 1 mg tablet 1 mg PO DAILY 09/28/21 09/28/21 History furosemide 40 mg tablet 40 mg PO DAILY 09/28/21 09/28/21 History melatonin 5 mg tablet 5 mg PO HS 09/28/21 09/28/21 History menthol 0.44 %-zinc oxide 20.6 % 1 applic TOPICAL .Q SHIFT PRN 09/28/21 09/28/21 History topical ointment (Calmoseptine) multivitamin 1 tab PO DAILY 09/28/21 09/28/21 History pantoprazole 40 mg tablet,delayed 40 mg PO BID 09/28/21 09/28/21 History release polyethylene glycol 3350 17 gram 17 g PO DAILY 09/28/21 09/28/21 History oral powder packet (Miralax) ropinirole 0.25 mg tablet 0.25 mg PO HS PRN 09/28/21 09/28/21 History sennosides 8.6 mg-docusate sodium 1 tab-cap PO BID 09/28/21 09/28/21 History 50 mg tablet (Senna-S) vibegron 75 mg tablet (Gemtesa) 75 mg PO DAILY 09/28/21 09/28/21 History warfarin 3 mg tablet 3 mg PO DAILY 09/28/21 09/28/21 History Past Med/Surg History Medical History Anemia Anosmia Arthritis Atrial fibrillation Chronic constipation Cognitive communication deficit COPD (chronic obstructive pulmonary disease) Dizziness GERD (gastroesophageal reflux disease) Gross hematuria Hearing deficit Heart valve regurgitation History of benign brain tumor History of breast cancer History of cellulitis History of COVID-19 History of DVT (deep vein thrombosis) TANANA (hard of hearing) Hyperlipidemia Hypertension Immobility Lymphedema Meningioma Mixed stress and urge urinary incontinence Morbid obesity Osteoarthritis Peripheral neuropathy Raynauds disease Seizure Spinal stenosis Stress incontinence in female Surgical History H/O hernia repair H/O Spinal surgery History of ankle fusion History of bladder surgery History of breast biopsy History of craniotomy History of laminectomy History of lumpectomy of left breast History of mastectomy History of ovarian cystectomy History of repair of hiatal hernia History of total knee replacement History of total shoulder replacement S/P IVC filter S/P PICC central line placement Family History Mother , Passed age 62 of ND Diabetes Coronary heart disease Hypertension Stroke Father , Passed age 68 of accident (fell down steps) No problems noted. Brother Family history of diabetes mellitus Diabetes Brother No problems noted. Sister Slow to wake up after anesthesia twin sister Breast cancer Twin - Left Breast - Lumpectomy/Chemo/RXT Sister No problems noted. Sister No problems noted. Sister No problems noted. Sister No problems noted. Son Sarcoidosis Son No problems noted. Daughter No problems noted. Grandmother (Paternal) Family history of diabetes mellitus Grandmother (Maternal) Family history of diabetes mellitus Mother Family history of diabetes mellitus Social History Smoking Status: Former smoker Tobacco Type: Cigarettes Years Smoked: 2; Cigarettes Per Day: HX OF SOCIAL CIGARETTE, QUIT 25 YEARS AGO.; Hx Alcohol Use: No Hx Substance Use: No (pt unwilling to answer) Preferred Language: Hebrew Communication Ability: Impaired Visual Impairment: Limited Hearing Ability: Use of Hearing Aid Air Conditioning Engineer Required: Video and No Beliefs That Will Affect Care: None marital status: Current Living Situation: Personal Care Facility Current Living Situation Comment: [facility] 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 HEENT--PERRL, EOMI, mucous membranes and oropharynx dry. Neck--supple. No JVD. No bruits. Thyroid normal, trachea midline, no adenopathy. Heart--normal S1 and S2. No murmurs, rubs or gallops. Lungs--coarse breath sounds bilaterally. No respiratory distress, no accessory muscle use. Abdomen--normal bowel sounds and soft. Nontender. Nondistended. Morbidly obese Extremities--no cyanosis or clubbing. 2+ bilateral pretibial pitting edema Dermatologic--normal skin turgor, normal color, no abnormal lymph nodes, no rash Neurologic--cranial nerves II through XII grossly intact, however, examination is limited Rheumatologic--limited exam Psychiatric-lethargic. Results & Data Results & Data ([facility]) Vital Signs (Past 12 Hours) Vital Signs Temp Pulse Pulse Resp BP BP Pulse Ox 09/28/21 00:08 84 19 144/109 H 94 09/27/21 22:33 80 18 96 09/27/21 22:02 36.9 C 77 22 143/89 H 92 09/27/21 21:48 36.9 C 83 19 143/89 H 92 Laboratory Results Laboratory Results WBC 8.01 K/uL (4.8-10.8) 09/27/21 21:50 RBC 4.11 M/uL (4.2-5.4) L 09/27/21 21:50 Hgb 12.7 g/dL (12.0-16.0) 09/27/21 21:50 Hct 41.9 % (37-47) 09/27/21 21:50 MCV 101.9 fL (80-100) H 09/27/21 21:50 MCH 30.9 pg (25-34) 09/27/21 21:50 MCHC 30.3 g/dL (32-36) L 09/27/21 21:50 RDW Std Deviation 67.1 fL (36.4-46.3) H 09/27/21 21:50 RDW Coeff of Tatyana 18.2 % (11.5-14.5) H 09/27/21 21:50 Plt Count 196 K/uL (130-400) 09/27/21 21:50 MPV 10.4 fL (7.4-10.4) 09/27/21 21:50 Immature Gran % (Auto) 0.6 % 09/27/21 21:50 Neut % (Auto) 64.2 % 09/27/21 21:50 Lymph % (Auto) 23.7 % 09/27/21 21:50 [facility] % (Auto) 10.1 % 09/27/21 21:50 Eos % (Auto) 1.2 % 09/27/21 21:50 Baso % (Auto) 0.2 % 09/27/21 21:50 Neut # (Auto) 5.13 K/uL (1.4-6.5) 09/27/21 21:50 Lymph # (Auto) 1.90 K/uL (1.2-3.4) 09/27/21 21:50 [facility] # (Auto) 0.81 K/uL (0.11-0.59) H 09/27/21 21:50 Eos # (Auto) 0.10 K/uL (0-0.5) 09/27/21 21:50 Baso # (Auto) 0.02 K/uL (0-0.2) 09/27/21 21:50 Immature Gran # (Auto) 0.05 K/uL (0.00-0.02) H 09/27/21 21:50 Absolute Nucleated RBC 0.04 K/uL (0-0) H 09/27/21 21:50 Nucleated RBC % (auto) 0.5 % 09/27/21 21:50 PT 37.4 Seconds (9.0-12.0) H 09/27/21 21:50 INR 3.8 (0.9-1.1) H 09/27/21 21:50 Sodium 141 mmol/L (136-145) 09/27/21 21:20 Potassium 4.1 mmol/L (3.5-5.1) 09/27/21 21:20 Chloride 103 mmol/L (98-107) 09/27/21 21:20 Carbon Dioxide 33 mmol/L (21-32) H 09/27/21 21:20 Anion Gap 5 (3-11) 09/27/21 21:20 BUN 24 mg/dl (6-23) H 09/27/21 21:20 Creatinine 0.99 mg/dl (0.6-1.2) 09/27/21 21:20 Est Cr Clr Drug Dosing 70.1 ml/min 09/27/21 21:20 Est GFR ( Amer) 64.6 ml/min 09/27/21 21:20 Est GFR (Non-Af Amer) 55.7 ml/min 09/27/21 21:20 BUN/Creatinine Ratio 24.2 (10-20) H 09/27/21 21:20 Glucose 147 mg/dl (70-99(Fasting)) H 09/27/21 21:20 POC Glucose 134 mg/dl (70-99) H 09/27/21 22:12 Lactate 0.8 mmol/L (0.4-2.0) 09/28/21 00:09 Calcium 8.8 mg/dl (8.5-10.1) 09/27/21 21:20 Phosphorus 4.0 mg/dl (2.5-4.9) 09/27/21 21:20 Magnesium 2.6 mg/dl (1.7-2.4) H 09/27/21 21:20 Total Bilirubin 0.7 mg/dl (0.2-1.0) 09/27/21 21:20 AST 10 U/L (13-39) L 09/27/21 21:20 ALT 8 U/L (7-52) 09/27/21 21:20 Alkaline Phosphatase 92 U/L (34-104) 09/27/21 21:20 Troponin I High Sens Cancelled 09/28/21 00:50 Total Protein 6.3 gm/dl (6.0-8.3) 09/27/21 21:20 Albumin 3.4 gm/dl (3.4-5.0) 09/27/21 21:20 Globulin 2.9 gm/dl (2.5-4.0) 09/27/21 21:20 Albumin/Globulin Ratio 1.2 (0.9-2) 09/27/21 21:20 Lipase 25 U/L (11-82) 09/27/21 21:20 Procalcitonin < 0.05 ng/ml (0-0.5) 09/27/21 21:50 Urine Color Yellow 09/27/21 22:26 Urine Appearance Turbid (Clear) A 09/27/21 22:26 Urine pH 8.0 (4.5-7.5) H 09/27/21 22:26 Ur Specific Cut Off 1.013 (1.000-1.030) 09/27/21 22:26 Urine Protein 2+ (Negative) H 09/27/21 22:26 Urine Glucose (UA) Negative (Negative) 09/27/21 22: Urine Ketones Negative (Negative) 09/27/21 22: Urine Blood 2+ (Negative) H 09/27/21 22:26 Urine Nitrite Negative (Negative) 09/27/21 22:26 Urine Bilirubin Negative (Negative) 09/27/21 22: Urine Urobilinogen Negative (Negative) 09/27/21 22:26 Ur Leukocyte Esterase 3+ (Negative) H 09/27/21 22:26 Urine WBC (Auto) >30 /hpf (0-5) H 09/27/21 22:26 Urine RBC (Auto) 10-30 /hpf (0-4) H 09/27/21 22: U Hyaline Cast (Auto) 10-30 /lpf (0-5) H 09/27/21 22: U Epithel Cells (Auto) 20-30 /lpf (0-5) H 09/27/21 22:26 Urine Bacteria (Auto) Negative (Negative) 09/27/21 22: Urine Yeast Not Reportable 09/27/21 22:26 SARS-CoV-2, RNA, NAAT NEGATIVE (NEGATIVE) 09/27/21 22:21 Diagnostic Findings [facility] Patient: TARAN FREEMAN (Female) : 47 Status: ER Date: 09/27/21 23:14 Room #: History: [facility] Slices: 130 Priors: Tech: Harrison Almaguer @ [phone] Exams: CT HEAD Contrast: Accession Numbers: [id number] Referring Physician: REFERRED SELF Preliminary Findings Only See Final Report For Complete Findings CT HEAD: Motion artifact. Left frontotemporal encephalomalacia with overlying craniotomy defect. No visualized hemorrhage, hydrocephalus, or edema. Radiologist: Sotero Gaines MD Study ready at 23:18 and initial results transmitted at 23:38 *This report constitutes a preliminary interpretation only. Non-acute findings felt to be unrelated to the clinical presentation may not be discussed in this report. The study will be interpreted and a final report will be generated by the local Radiologist the following shift. To reach the hospital radiology department call [phone]. If a discrepancy is found between the preliminary and final interp retations of this study, please notify us via our Client Portal at [email or web address], under QA Exams. You can also fax this report with a description of the discrepancy, or include the final report, to our daytime fax number [phone]. If faxing, please indicate the severity of discrepancy using one of the following categories: [ ] 1 - Agree/Informational [ ] 2 - Unlikely to Affect Management [ ] 3 - Possible Eventual Change of Management [ ] 4 - Probable Immediate Change of Management For all other patient related information, please fax us at [phone]. [id number] Code Status & VTE Plan Code Status DNR/DNI, VTE Prophylaxis Plan VTE Prophylaxis will be ordered: Yes PG Care Time/CCT Total # of Minutes Spent Total Time Spent with Patient: Total time spent is greater than 50% in coordination of care (as documented) at patient's floor/unit and/or counseling patient: Coding Level of Care Code 83646 Initial Inpt Care Lvl 3 Diagnoses Acute alteration in mental status R41.82 Opiate overdose T40.601A Encounter type: initial encounter Injury intent: accidental or unintentional Multifocal pneumonia J18.9 Elevated troponin R77.8 Atrial fibrillation I48.91 Hypertension I10 History of DVT (deep vein thrombosis) Z86.718 Stress incontinence in female N39.3 (1) Opiate overdose Encounter type: initial encounter Injury intent: accidental or unintentional Qualified Code(s): T40.601A - Poisoning by unspecified narcotics, accidental (unintentional), initial encounter
[2021-09-28] MEDS ORDERED: ONDANSETRON INJ 2 MG/ML 2 ML VIAL IV PRN (03:47)
[2021-09-28] MEDS ORDERED: bisacodyL 10 MG SUPP PR PRN (03:47)
[2021-09-28] MEDS ORDERED: NITROGLYCERIN SL 0.4 MG/TAB TAB SL PRN (03:47)
[2021-09-28 06:28] LABS: Basophils # (auto) 0.02 K/uL (0-0.2); Basophils % (auto) 0.2 %; Eosinophils # (auto) 0.09 K/uL (0-0.5); Hematocrit (blood only) 43.3 % (37-47); Hemoglobin 12.6 g/dL (12.0-16.0); Immature Granulocytes # (auto) 0.06 K/uL (0.00-0.02); Immature Granulocytes % (auto) 0.7 %; Lymphocytes # (auto) 2.23 K/uL (1.2-3.4); Lymphocytes % (auto) 25.9 %; Mean Corpuscular Hemoglobin 30.2 pg (25-34); Mean Corpuscular Hgb Conc 29.1 g/dL (32-36); Mean Corpuscular Volume 103.8 fL (80-100); Mean Platelet Volume 10.1 fL (7.4-10.4); Monocytes % (auto) 10.4 %; Neutrophils # (auto) 5.32 K/uL (1.4-6.5); Neutrophils % (auto) 61.8 %; Platelet Count 203 K/uL (130-400); RDW Coefficient of Variation 18.3 % (11.5-14.5); RDW Standard Deviation 68.4 fL (36.4-46.3); Red Blood Count 4.17 M/uL (4.2-5.4); White Blood Count 8.62 K/uL (4.8-10.8)
[2021-09-28 06:35] LABS: Albumin Level 3.5 gm/dl (3.4-5.0); BUN Creatinine Ratio 27.9 (10-20); Calcium 8.8 mg/dl (8.5-10.1); Creatinine Clr Calc Pharmacy 85.1 ml/min; Est GFR (African American) 76.6 ml/min; Est GFR (Non-African American) 66.1 ml/min; Phosphorus 4.7 mg/dl (2.5-4.9); Potassium 4.2 mmol/L (3.5-5.1)
[2021-09-28 06:43] LABS: Troponin I High Sensitivity 54.8 pg/ml (0-14)
[2021-09-28] MEDS: ALBUT/IPRATROP 3MG/0.5MG NEB 3 ML VIAL NEB SCH ×4 (07:18→18:00)
--- NOTE | 2021-09-28 07:23 | CT Scan Report ---
CT OF THE HEAD WITHOUT CONTRAST CLINICAL HISTORY: Altered mental status. COMPARISON STUDY: MRI of the brain April 11, 2018. Head CT May 01, 2021. CT DOSE: 1228.53 mGy.cm TECHNIQUE: Helical axial images of the head were obtained without IV contrast. Automated exposure con trol was utilized for the study. A dose lowering technique was utilized adhering to the principles o f ALARA. FINDINGS: Exam is compromised by motion artifact. No acute intracranial hemorrhage, midline shift or mass effect is present. Left frontotemporal craniotomy is noted. There is no acute calvarial fracture . Ventricular system is stable. White matter hypodensities are unchanged. Basal cisterns are patent. There are no extra-axial collections. No findings to suggest acute dural sinus thrombosis or acute te rritorial infarct. The appearance of the brain is unchanged. Deformity of the bilateral posterior earline bes is chronic. IMPRESSION: 1. No acute intracranial findings. 2. No significant change in appearance of the brain. 3. Exam compromised by motion artifact. ACT 112: Negative or not required by law. Electronically signed by: Dharmesh Booth M.D. 09/28/2021 7:21 AM
[2021-09-28] MEDS: ACETAMINOPHEN 325 MG TAB PO PRN (07:57)
--- NOTE | 2021-09-28 07:58 | XRay Report ---
XR chest 1V portable HISTORY: Atypical Chest Pain COMPARISON: Chest 06/14/2009. FINDINGS: No pneumothorax. Small bilateral pleural effusions. The heart is mildly enlarged. There is diffuse interstitial/vascular thickening consistent with moderate pulmonary edema. This has progresse d in the interval. There is a right shoulder prosthesis. Advanced degenerative changes again noted wi thin the left shoulder. IMPRESSION: Interval development of cardiomegaly, moderate pulmonary edema, and small bilateral pleural effusions . ACT 112: Negative or not required by law. Electronically signed by: Shaq Flores M.D. 09/28/2021 7:57 AM
[2021-09-28] MEDS: ARTIFICIAL TEARS OP SCH ×3 (08:00→23:51)
[2021-09-28] MEDS ORDERED: ERTAPENEM SODIUM 10 ML IV SCH (09:00)
--- NOTE | 2021-09-28 09:42 | XCELERA ---
[id number]
[2021-09-28] MEDS: GABAPENTIN 400 MG CAP PO SCH ×4 (10:06→19:44)
[2021-09-28] MEDS: FERROUS SULFATE 325 MG TAB PO SCH ×2 (10:06→10:24)
[2021-09-28] MEDS: FAMOTIDINE 20 MG TAB PO SCH ×3 (10:06→19:44)
[2021-09-28] MEDS: METOPROLOL TARTRATE 25 MG TAB PO SCH ×2 (10:07→10:25)
[2021-09-28] MEDS: LORATADINE 10 MG TAB PO SCH ×2 (10:07→10:25)
[2021-09-28] MEDS: POLYETHYLENE (MIRALAX) 17 GM PACK PO SCH ×2 (10:07→10:26)
[2021-09-28] MEDS: OXYBUTYNIN CHLORIDE XL 5 MG TABCR PO SCH ×2 (10:07→10:26)
[2021-09-28] MEDS: METOPROLOL TARTRATE 1 MG/ML VIAL IV SCH ×3 (11:02→23:51)
[2021-09-28 12:23] LABS: pH VBG 7.15 (7.36-7.41)
[2021-09-28 12:32] LABS: INR 3.9 (0.9-1.1); Prothrombin Time 38.2 Seconds (9.0-12.0)
[2021-09-28 13:47] LABS: Influenza A virus by PCR Negative (Neg); Influenza B virus by PCR Negative (Neg); RSV by PCR Negative (Neg); SARS CoV2 RNA(COVID-19) InHosp NEGATIVE (Negative)
[2021-09-28 14:01] LABS: Base Excess VBG 5.2 mEq/L; Oxygen Saturation VBG 71.3 %; pH VBG 7.25 (7.36-7.41)
--- NOTE | 2021-09-28 14:13 | Electrocardiogram Report ---
Test Reason : Blood Pressure : / mmHG Vent. Rate : 071 BPM Atrial Rate : 068 BPM P-R Int : 000 ms QRS Dur : 088 ms QT Int : 400 ms P-R-T Axes : 000 056 086 degrees QTc Int : 434 ms Atrial fibrillation Low voltage QRS Abnormal ECG When compared with ECG of 07-APR-2019 10:07, No significant change was found Confirmed by Kishan Patel ([id number]) on 09/28/2021 2:12:59 PM Referred By: REFERRED SELF Confirmed By:Geovanny Patel
--- NOTE | 2021-09-28 14:14 | Electrocardiogram Report ---
Test Reason : Blood Pressure : / mmHG Vent. Rate : 102 BPM Atrial Rate : 079 BPM P-R Int : 000 ms QRS Dur : 090 ms QT Int : 350 ms P-R-T Axes : 000 057 224 degrees QTc Int : 456 ms Atrial fibrillation with rapid ventricular response Low voltage QRS Abnormal ECG When compared with ECG of 27-SEP-2021 22:00, (unconfirmed) No significant change was found Confirmed by Kishan Patel ([id number]) on 09/28/2021 2:13:41 PM Referred By: REFERRED SELF Confirmed By:Geovanny Patel
[2021-09-28 16:54] LABS: Base Excess VBG 5.7 mEq/L; HCO3 VBG 36 mmol/L; PCO2 VBG 89 mmHg (38-50); PO2 VBG 23 mmHg; pH VBG 7.23 (7.36-7.41)
--- NOTE | 2021-09-28 16:55 | XRay Report ---
XR chest 1V portable CLINICAL HISTORY: acute/chronic resp failure TECHNIQUE: Single frontal radiograph of the chest was obtained. Comparison: Comparison is made to chest radiograph 09/27/2021 FINDINGS: Right total shoulder arthroplasty is seen. Cardiomegaly is noted. Left retrocardiac and right lower l obe airspace opacities are seen. No evidence of pleural effusion or pneumothorax. IMPRESSION: Bilateral lower lung predominant airspace opacities which may represent atelectasis, pneumonia, and/o r aspiration. Stable cardiomegaly. ACT 112: Negative or not required by law. Electronically signed by: Clayton Robetrson M.D. 09/28/2021 4:53 PM
[2021-09-28 17:05] LABS: Oxygen Saturation VBG < 60.0 %
--- NOTE | 2021-09-28 17:11 | Hospitalist Progress Note ---
Date of Service September 28, 2021 Assessment & Plan (1) Acute on chronic respiratory failure with hypoxia and hypercapnia: Plan: Acute component is 2nd to CO2 narcosis in the setting of b/l pneumonia and chronic opiate usage. All opiates including fentanyl patches have been placed on hold until she is mentating and respiratory status has improved. BIPAP was started this am within minutes of my bedside visit. Initial VBG with markedly elevated pCO2 of >100. following BIPAP 14/6 her pH and pCO2 did improve. mentation, however, has not improved thus far. For suspected pneumonia - since she lives in a SNF - will need to have broad coverage to include typicals and gram negatives. Thus, change ertapenem to zosyn (I spoke with pharmacy - she has had this multiple times w/o incident). Check MRSA swab - if negative defer on MRSA coverage. Doxy for atypicals. She carries a diagnosis of COPD and her airation is very poor on exam. Although I can't find PFTs, etc to substantiate the COPD, she remains very ill and thus will provide steroids IV. Start solumedrol 40mg IV q8h now. Continue bronchodilators. She likely has REJI/OHS and she should be on chronic BIPAP. Will need to address later in this stay with AM ABG, overnight oximetry study, etc. (2) Acute metabolic encephalopathy: Plan: 2nd to markedly elevated pCO2, narcotics, pneumonia, etc. Checked ammonia this am - normal. CT head at admission negative. Continue BIPAP for hypercapnea. Continue abx for pneumonia. (3) Multifocal pneumonia: Plan: Repeat COVID test negative. RSV/flu test negative. Repeat cxr this afternoon again confirms b/l pneumonia. See #1 above re: antibiotic selection. (4) Opiate overdose: Plan: It is unclear if she truly had a large quantity of opiates all at once leading to a typical overdose. The PDMP shows she has NOT had any oxycodone prescribed/refilled since October 2020 but the MAR from [facility] continues to show oxycodone prn. I am most concerned that due to her morbid obesity she will build-up large levels of fentanyl with ongoing use. Oxycodone usage on top of fentanyl will certainly compound this issue. All opiates are on hold. In order to avoid withdrawal we will need to resume some basic level of opiates in the next day or so. Consider pain management consult to assist with this. I am assuming her pain meds are for chronic lumbar back pain. (5) Elevated troponin: Plan: myocardial demand ischemia in the setting of #1 and #3 no evidence of ACS echo with normal LV wall motion (6) Demand ischemia of myocardium: (7) Chronic prescription opiate use: Plan: fentanyl patches + oxycodone per the MAR from the detention PDMP only shows refills on the fentanyl, not the oxycodone (8) Atrial fibrillation: Plan: permanent on coumadin on metoprolol due to NPO status will convert PO metoprolol to IV lopressor 5mg q6h hold coumadin, repeat INR today and again in am (9) COPD (chronic obstructive pulmonary disease): Plan: question of she is not on bronchodilator therapy at the [id number], given how sick she is, will add steroids in the event there is any bronchitis/bronchospastic component to her illness (10) GERD (gastroesophageal reflux disease): Plan: convert pepcid PO to IV (11) History of DVT (deep vein thrombosis): Plan: noted on coumadin for such + a.fib hold coumadin due to supratherapeutic INR INR in am (12) Hypertension: Plan: BPs controlled at this time cont IV lopressor (13) Morbid obesity with BMI of 45.0-49.9, adult: Plan: BMI 45 (14) DVT prophylaxis: Plan: coumadin - INR supreatherapeutic recheck INR am Plan: Berkley Ballesteros - [phone] - pt's daughter she lives in [place] extensive 20+ min update given to her questions answered discussed the hypercapnea, pneumonia, BIPAP, etc total time today 75 minutes - multiple bedside visits to check respiratory status, numerous lab interpretation, speaking with respiratory therapy, call to daughter, review of records from SNF & PDMP, etc Admission and Anticipated Discharge Date Admission Date: September 28, 2021 Subjective patient was obtunded during my visit no response to sternal rub, name being called, etc did not wake during any portion of the physical exam staff report that at med pass early this am she was awake enough to take some pills in applesauce but otherwise has been asleep tele overnight - a.fib, rates >100 Review of Systems Review of Systems: Unobtainable due to reduced consciousness Physical Exam Physical Exam: gen - morbidly obese, obtunded, snoring eyes - PERRL, about 2mm b/l mouth - MM dry neck - no obvious JVD heart - irregularly irregular, s1 s2, no murmur lungs - very poor air movement, hint of crackles bases, mild tachypnea noted abd - soft obese; no apparent tenderness ext - severe lymphedema b/l legs; pulses 1+ b/l feet neuro - babinski's negative Results & Data Results & Data ([facility]) Vital Signs (Past 12 Hours) Vital Signs Temp Pulse Pulse Resp BP BP Pulse Ox 09/28/21 16:44 78 114/65 09/28/21 16:17 36.6 C 78 21 114/65 96 09/28/21 16:05 36.7 C 77 18 115/75 91 09/28/21 15:05 74 09/28/21 15:01 66 66 22 96 09/28/21 12:33 36.6 C 76 20 94/66 L 94 09/28/21 11:49 81 20 94 09/28/21 11:02 86 122/74 09/28/21 10:55 86 122/74 09/28/21 10:49 87 20 95 09/28/21 08:08 36.5 C 110 H 20 158/95 H 98 09/28/21 07:19 80 20 95 Laboratory Results Laboratory Results - last 24 hr 09/27/21 09/27/21 09/27/21 21:20 21:50 21:50 WBC 8.01 RBC 4.11 L Hgb 12.7 Hct 41.9 MCV 101.9 H MCH 30.9 MCHC 30.3 L RDW Std Deviation 67.1 H RDW Coeff of Tatyana 18.2 H Plt Count 196 MPV 10.4 Immature Gran % (Auto) 0.6 Neut % (Auto) 64.2 Lymph % (Auto) 23.7 Edmonson % (Auto) 10.1 Eos % (Auto) 1.2 Baso % (Auto) 0.2 Neut # (Auto) 5.13 Lymph # (Auto) 1.90 Edmonson # (Auto) 0.81 H Eos # (Auto) 0.10 Baso # (Auto) 0.02 Immature Gran # (Auto) 0.05 H Absolute Nucleated RBC 0.04 H Nucleated RBC % (auto) 0.5 PT 37.4 H INR 3.8 H VBG pH VBG pCO2 VBG pO2 VBG HCO3 VBG O2 Saturation VBG Base Excess Barometric Pressure Sodium 141 Potassium 4.1 Chloride 103 Carbon Dioxide 33 H Anion Gap 5 BUN 24 H Creatinine 0.99 Est Cr Clr Drug Dosing 70.1 Est GFR ( Amer) 64.6 Est GFR (Non-Af Amer) 55.7 BUN/Creatinine Ratio 24.2 H Glucose 147 H POC Glucose Lactate Calcium 8.8 Phosphorus 4.0 Magnesium 2.6 H Total Bilirubin 0.7 AST 10 L ALT 8 Alkaline Phosphatase 92 Ammonia Troponin I High Sens 55.7 H* C-Reactive Protein Total Protein 6.3 Albumin 3.4 Globulin 2.9 Albumin/Globulin Ratio 1.2 Lipase 25 Procalcitonin TSH Urine Color Urine Appearance Urine pH Ur Specific Corning Urine Protein Urine Glucose (UA) Urine Ketones Urine Blood Urine Nitrite Urine Bilirubin Urine Urobilinogen Ur Leukocyte Esterase Urine WBC (Auto) Urine RBC (Auto) U Hyaline Cast (Auto) U Epithel Cells (Auto) Urine Bacteria (Auto) Urine Yeast SARS-CoV-2 (PCR) Influenza Type A (PCR) Influenza Type B (PCR) RSV (RT-PCR) SARS-CoV-2, RNA, NAAT 09/27/21 09/27/21 09/27/21 21:50 22:12 22:21 WBC RBC Hgb Hct MCV MCH MCHC RDW Std Deviation RDW Coeff of Tatyana Plt Count MPV Immature Gran % (Auto) Neut % (Auto) Lymph % (Auto) Edmonson % (Auto) Eos % (Auto) Baso % (Auto) Neut # (Auto) Lymph # (Auto) Edmonson # (Auto) Eos # (Auto) Baso # (Auto) Immature Gran # (Auto) Absolute Nucleated RBC Nucleated RBC % (auto) PT INR VBG pH VBG pCO2 VBG pO2 VBG HCO3 VBG O2 Saturation VBG Base Excess Barometric Pressure Sodium Potassium Chloride Carbon Dioxide Anion Gap BUN Creatinine Est Cr Clr Drug Dosing Est GFR ( Amer) Est GFR (Non-Af Amer) BUN/Creatinine Ratio Glucose POC Glucose 134 H Lactate Calcium Phosphorus Magnesium Total Bilirubin AST ALT Alkaline Phosphatase Ammonia Troponin I High Sens C-Reactive Protein Total Protein Albumin Globulin Albumin/Globulin Ratio Lipase Procalcitonin < 0.05 TSH Urine Color Urine Appearance Urine pH Ur Specific Corning Urine Protein Urine Glucose (UA) Urine Ketones Urine Blood Urine Nitrite Urine Bilirubin Urine Urobilinogen Ur Leukocyte Esterase Urine WBC (Auto) Urine RBC (Auto) U Hyaline Cast (Auto) U Epithel Cells (Auto) Urine Bacteria (Auto) Urine Yeast SARS-CoV-2 (PCR) Influenza Type A (PCR) Influenza Type B (PCR) RSV (RT-PCR) SARS-CoV-2, RNA, NAAT NEGATIVE 09/27/21 09/28/21 09/28/21 22:26 00:09 00:50 WBC RBC Hgb Hct MCV MCH MCHC RDW Std Deviation RDW Coeff of Tatyana Plt Count MPV Immature Gran % (Auto) Neut % (Auto) Lymph % (Auto) Edmonson % (Auto) Eos % (Auto) Baso % (Auto) Neut # (Auto) Lymph # (Auto) Edmonson # (Auto) Eos # (Auto) Baso # (Auto) Immature Gran # (Auto) Absolute Nucleated RBC Nucleated RBC % (auto) PT INR VBG pH VBG pCO2 VBG pO2 VBG HCO3 VBG O2 Saturation VBG Base Excess Barometric Pressure Sodium Potassium Chloride Carbon Dioxide Anion Gap BUN Creatinine Est Cr Clr Drug Dosing Est GFR ( Amer) Est GFR (Non-Af Amer) BUN/Creatinine Ratio Glucose POC Glucose Lactate 0.8 Calcium Phosphorus Magnesium Total Bilirubin AST ALT Alkaline Phosphatase Ammonia Troponin I High Sens Cancelled C-Reactive Protein Total Protein Albumin Globulin Albumin/Globulin Ratio Lipase Procalcitonin TSH Urine Color Yellow Urine Appearance Turbid A Urine pH 8.0 H Ur Specific Corning 1.013 Urine Protein 2+ H Urine Glucose (UA) Negative Urine Ketones Negative Urine Blood 2+ H Urine Nitrite Negative Urine Bilirubin Negative Urine Urobilinogen Negative Ur Leukocyte Esterase 3+ H Urine WBC (Auto) >30 H Urine RBC (Auto) 10-30 H U Hyaline Cast (Auto) 10-30 H U Epithel Cells (Auto) 20-30 H Urine Bacteria (Auto) Negative Urine Yeast Not Reportable SARS-CoV-2 (PCR) Influenza Type A (PCR) Influenza Type B (PCR) RSV (RT-PCR) SARS-CoV-2, RNA, NAAT 09/28/21 09/28/21 09/28/21 05:36 05:36 12:00 WBC 8.62 RBC 4.17 L Hgb 12.6 Hct 43.3 MCV 103.8 H MCH 30.2 MCHC 29.1 L RDW Std Deviation 68.4 H RDW Coeff of Tatyana 18.3 H Plt Count 203 MPV 10.1 Immature Gran % (Auto) 0.7 Neut % (Auto) 61.8 Lymph % (Auto) 25.9 Edmonson % (Auto) 10.4 Eos % (Auto) 1.0 Baso % (Auto) 0.2 Neut # (Auto) 5.32 Lymph # (Auto) 2.23 Edmonson # (Auto) 0.90 H Eos # (Auto) 0.09 Baso # (Auto) 0.02 Immature Gran # (Auto) 0.06 H Absolute Nucleated RBC Nucleated RBC % (auto) PT 38.2 H INR 3.9 H VBG pH VBG pCO2 VBG pO2 VBG HCO3 VBG O2 Saturation VBG Base Excess Barometric Pressure Sodium 143 Potassium 4.2 Chloride 105 Carbon Dioxide 33 H Anion Gap 5 BUN 24 H Creatinine 0.86 Est Cr Clr Drug Dosing 85.1 Est GFR ( Amer) 76.6 Est GFR (Non-Af Amer) 66.1 BUN/Creatinine Ratio 27.9 H Glucose 126 H POC Glucose Lactate Calcium 8.8 Phosphorus 4.7 Magnesium Total Bilirubin AST ALT Alkaline Phosphatase Ammonia Troponin I High Sens 54.8 H* C-Reactive Protein Total Protein Albumin 3.5 Globulin Albumin/Globulin Ratio Lipase Procalcitonin TSH Urine Color Urine Appearance Urine pH Ur Specific Corning Urine Protein Urine Glucose (UA) Urine Ketones Urine Blood Urine Nitrite Urine Bilirubin Urine Urobilinogen Ur Leukocyte Esterase Urine WBC (Auto) Urine RBC (Auto) U Hyaline Cast (Auto) U Epithel Cells (Auto) Urine Bacteria (Auto) Urine Yeast SARS-CoV-2 (PCR) Influenza Type A (PCR) Influenza Type B (PCR) RSV (RT-PCR) SARS-CoV-2, RNA, NAAT 09/28/21 09/28/21 09/28/21 12:00 12:00 12:00 WBC RBC Hgb Hct MCV MCH MCHC RDW Std Deviation RDW Coeff of Tatyana Plt Count MPV Immature Gran % (Auto) Neut % (Auto) Lymph % (Auto) Edmonson % (Auto) Eos % (Auto) Baso % (Auto) Neut # (Auto) Lymph # (Auto) Edmonson # (Auto) Eos # (Auto) Baso # (Auto) Immature Gran # (Auto) Absolute Nucleated RBC Nucleated RBC % (auto) PT INR VBG pH 7.15 L VBG pCO2 103 H VBG pO2 65 VBG HCO3 35 VBG O2 Saturation 88.0 VBG Base Excess 3.0 Barometric Pressure 733.9 Sodium Potassium Chloride Carbon Dioxide Anion Gap BUN Creatinine Est Cr Clr Drug Dosing Est GFR ( Amer) Est GFR (Non-Af Amer) BUN/Creatinine Ratio Glucose POC Glucose Lactate Calcium Phosphorus Magnesium Total Bilirubin AST ALT Alkaline Phosphatase Ammonia 31.0 Troponin I High Sens C-Reactive Protein 5.36 H Total Protein Albumin Globulin Albumin/Globulin Ratio Lipase Procalcitonin TSH Urine Color Urine Appearance Urine pH Ur Specific Corning Urine Protein Urine Glucose (UA) Urine Ketones Urine Blood Urine Nitrite Urine Bilirubin Urine Urobilinogen Ur Leukocyte Esterase Urine WBC (Auto) Urine RBC (Auto) U Hyaline Cast (Auto) U Epithel Cells (Auto) Urine Bacteria (Auto) Urine Yeast SARS-CoV-2 (PCR) Influenza Type A (PCR) Influenza Type B (PCR) RSV (RT-PCR) SARS-CoV-2, RNA, NAAT 09/28/21 09/28/21 09/28/21 12:00 12:30 13:46 WBC RBC Hgb Hct MCV MCH MCHC RDW Std Deviation RDW Coeff of Tatyana Plt Count MPV Immature Gran % (Auto) Neut % (Auto) Lymph % (Auto) Edmonson % (Auto) Eos % (Auto) Baso % (Auto) Neut # (Auto) Lymph # (Auto) Edmonson # (Auto) Eos # (Auto) Baso # (Auto) Immature Gran # (Auto) Absolute Nucleated RBC Nucleated RBC % (auto) PT INR VBG pH 7.25 L VBG pCO2 82 H VBG pO2 42 VBG HCO3 35 VBG O2 Saturation 71.3 VBG Base Excess 5.2 Barometric Pressure 735.4 Sodium Potassium Chloride Carbon Dioxide Anion Gap BUN Creatinine Est Cr Clr Drug Dosing Est GFR ( Amer) Est GFR (Non-Af Amer) BUN/Creatinine Ratio Glucose POC Glucose Lactate Calcium Phosphorus Magnesium Total Bilirubin AST ALT Alkaline Phosphatase Ammonia Troponin I High Sens C-Reactive Protein Total Protein Albumin Globulin Albumin/Globulin Ratio Lipase Procalcitonin TSH 3.719 Urine Color Urine Appearance Urine pH Ur Specific Corning Urine Protein Urine Glucose (UA) Urine Ketones Urine Blood Urine Nitrite Urine Bilirubin Urine Urobilinogen Ur Leukocyte Esterase Urine WBC (Auto) Urine RBC (Auto) U Hyaline Cast (Auto) U Epithel Cells (Auto) Urine Bacteria (Auto) Urine Yeast SARS-CoV-2 (PCR) NEGATIVE Influenza Type A (PCR) Negative Influenza Type B (PCR) Negative RSV (RT-PCR) Negative SARS-CoV-2, RNA, NAAT 09/28/21 16:39 WBC RBC Hgb Hct MCV MCH MCHC RDW Std Deviation RDW Coeff of Tatyana Plt Count MPV Immature Gran % (Auto) Neut % (Auto) Lymph % (Auto) Edmonson % (Auto) Eos % (Auto) Baso % (Auto) Neut # (Auto) Lymph # (Auto) Edmonson # (Auto) Eos # (Auto) Baso # (Auto) Immature Gran # (Auto) Absolute Nucleated RBC Nucleated RBC % (auto) PT INR VBG pH 7.23 L VBG pCO2 89 H VBG pO2 23 VBG HCO3 36 VBG O2 Saturation < 60.0 VBG Base Excess 5.7 Barometric Pressure 731.7 Sodium Potassium Chloride Carbon Dioxide Anion Gap BUN Creatinine Est Cr Clr Drug Dosing Est GFR ( Amer) Est GFR (Non-Af Amer) BUN/Creatinine Ratio Glucose POC Glucose Lactate Calcium Phosphorus Magnesium Total Bilirubin AST ALT Alkaline Phosphatase Ammonia Troponin I High Sens C-Reactive Protein Total Protein Albumin Globulin Albumin/Globulin Ratio Lipase Procalcitonin TSH Urine Color Urine Appearance Urine pH Ur Specific Cor[place] Urine Protein Urine Glucose (UA) Urine Ketones Urine Blood Urine Nitrite Urine Bilirubin Urine Urobilinogen Ur Leukocyte Esterase Urine WBC (Auto) Urine RBC (Auto) U Hyaline Cast (Auto) U Epithel Cells (Auto) Urine Bacteria (Auto) Urine Yeast SARS-CoV-2 (PCR) Influenza Type A (PCR) Influenza Type B (PCR) RSV (RT-PCR) SARS-CoV-2, RNA, NAAT Diagnostic Findings Chest X-Ray 09/27/21 21:44 XR chest 1V portable HISTORY: Atypical Chest Pain COMPARISON: Chest 06/14/2009. FINDINGS: No pneumothorax. Small bilateral pleural effusions. The heart is mildly enlarged. There is diffuse interstitial/vascular thickening consistent with moderate pulmonary edema. This has progressed in the interval. There is a right shoulder prosthesis. Advanced degenerative changes again noted within the left shoulder. IMPRESSION: Interval development of cardiomegaly, moderate pulmonary edema, and small bilateral pleural effusions. ACT 112: Negative or not required by law. Electronically signed by: Shaq Flores M.D. 09/28/2021 7:[address] 09/27/21 22:03 CT OF THE HEAD WITHOUT CONTRAST CLINICAL HISTORY: Altered mental status. COMPARISON STUDY: MRI of the brain April 11, 2018. Head CT May 01, 2021. CT DOSE: 1228.53 mGy.cm TECHNIQUE: Helical axial images of the head were obtained without IV contrast. Automated exposure control was utilized for the study. A dose lowering technique was utilized adhering to the principles of ALARA. FINDINGS: Exam is compromised by motion artifact. No acute intracranial hemorrhage, midline shift or mass effect is present. Left frontotemporal craniotomy is noted. There is no acute calvarial fracture. Ventricular system is stable. White matter hypodensities are unchanged. Basal cisterns are patent. There are no extra-axial collections. No findings to suggest acute dural sinus thrombosis or acute territorial infarct. The appearance of the brain is unchanged. Deformity of the bilateral posterior globes is chronic. IMPRESSION: 1. No acute intracranial findings. 2. No significant change in appearance of the brain. 3. Exam compromised by motion artifact. ACT 112: Negative or not required by law. Electronically signed by: Dharmesh Booth M.D. 09/28/2021 7:21 AM Chest X-Ray 09/28/21 15:43 XR chest 1V portable CLINICAL HISTORY: acute/chronic resp failure TECHNIQUE: Single frontal radiograph of the chest was obtained. Comparison: Comparison is made to chest radiograph 09/27/2021 FINDINGS: Right total shoulder arthroplasty is seen. Cardiomegaly is noted. Left retrocardiac and right lower lobe airspace opacities are seen. No evidence of pleural effusion or pneumothorax. IMPRESSION: Bilateral lower lung predominant airspace opacities which may represent atelectasis, pneumonia, and/or aspiration. Stable cardiomegaly. ACT 112: Negative or not required by law. Electronically signed by: Clayton Robertson M.D. 09/28/2021 4:53 PM PG Care Time/CCT Total # of Minutes Spent Total Time Spent with Patient: Total time spent is greater than 50% in coordination of care (as documented) at patient's floor/unit and/or counseling patient: Prolonged Care Time Prolonged Care Time: Yes 75 Coding Level of Care Code 90839 Subseq Hosp Care Lvl 3 (25 - SIGNIFICANT, SEPARATELY IDENTIFIABLE ) Diagnoses Acute on chronic respiratory failure with hypoxia and hypercapnia J96.21; J96.22 Acute metabolic encephalopathy G93.41 Multifocal pneumonia J18.9 Opiate overdose T40.601A Encounter type: initial encounter Injury intent: accidental or unintentional Elevated troponin R77.8 Demand ischemia of myocardium I24.8 Chronic prescription opiate use Z79.891 Atrial fibrillation I48.91 COPD (chronic obstructive pulmonary disease) J44.9 GERD (gastroesophageal reflux disease) K21.9 History of DVT (deep vein thrombosis) Z86.718 Hypertension I10 Morbid obesity with BMI of 45.0-49.9, adult E66.01; Z68.42 DVT prophylaxis Z29.9 Additional Codes Prolonged Care Time - Prolonged Care Time: Yes ([id number]) Time Spent (min) 75 (1) Opiate overdose Encounter type: initial encounter Injury intent: accidental or unintentional Qualified Code(s): T40.601A - Poisoning by unspecified narcotics, accidental (unintentional), initial encounter
[2021-09-28] MEDS ORDERED: PIPERACILL/TAZOBAC CONSULT ACTIVE PRN (17:36)
[2021-09-28] MEDS ORDERED: PIPERACILLIN/TAZOBACTAM 3.375 GM in DEXTROSE 5% 100 ML IV SCH (17:45)
[2021-09-28] MEDS ORDERED: PIPERACILLIN/TAZOBACTAM 4.5 GM in DEXTROSE 5% 100 ML IV ONE (18:00)
[2021-09-28] MEDS: DOXYCYCLINE HYCLATE 100 MG in DEXTROSE 5% 100 ML IV SCH (18:42)
[2021-09-28] MEDS: methylPREDNISolone 40 MG in SYRINGE 0 ML IV SCH (19:42)
--- NOTE | 2021-09-28 22:05 | Communication Note ---
Date of Service: September 28, 2021 notified of patient disoriented and pulling out iv and refusing 8pm blood draw for vbg. Respiratory status tolerating bipap. Will check vbg at midnight. re viewed vbg, improving acid base status. continue bipap at current settings. 18/6 rate of 20 and Fio2 30%
[2021-09-29] MEDS ORDERED: ERTAPENEM SODIUM 1,000 MG in SYRINGE 0 ML IV SCH
[2021-09-29 00:56] LABS: Base Excess VBG 5.4 mEq/L; Oxygen Saturation VBG 68.2 %; pH VBG 7.32 (7.36-7.41)
[2021-09-29] MEDS: PIPERACILLIN/TAZOBACTAM 4.5 GM in DEXTROSE 5% 100 ML IV SCH ×3 (02:06→18:27)
[2021-09-29] MEDS: methylPREDNISolone 40 MG in SYRINGE 0 ML IV SCH ×3 (02:07→20:10)
[2021-09-29] MEDS: METOPROLOL TARTRATE 1 MG/ML VIAL IV SCH (05:32)
[2021-09-29] MEDS: DOXYCYCLINE HYCLATE 100 MG in DEXTROSE 5% 100 ML IV SCH ×2 (05:33→17:45)
[2021-09-29] MEDS: ALBUT/IPRATROP 3MG/0.5MG NEB 3 ML VIAL NEB SCH ×4 (07:06→19:14)
[2021-09-29 07:36] LABS: Base Excess VBG 5.4 mEq/L; Oxygen Saturation VBG 69.1 %; pH VBG 7.32 (7.36-7.41)
[2021-09-29 07:36] LABS: Hematocrit (blood only) 39.2 % (37-47); Hemoglobin 11.4 g/dL (12.0-16.0); Immature Granulocytes # (auto) 0.04 K/uL (0.00-0.02); Immature Granulocytes % (auto) 0.7 %; Lymphocytes # (auto) 1.01 K/uL (1.2-3.4); Lymphocytes % (auto) 17.4 %; Mean Corpuscular Hemoglobin 30.4 pg (25-34); Mean Corpuscular Hgb Conc 29.1 g/dL (32-36); Mean Corpuscular Volume 104.5 fL (80-100); Mean Platelet Volume 10.5 fL (7.4-10.4); Monocytes # (auto) 0.07 K/uL (0.11-0.59); Monocytes % (auto) 1.2 %; Neutrophils # (auto) 4.67 K/uL (1.4-6.5); Neutrophils % (auto) 80.7 %; Platelet Count 186 K/uL (130-400); RDW Coefficient of Variation 17.8 % (11.5-14.5); RDW Standard Deviation 67.5 fL (36.4-46.3); Red Blood Count 3.75 M/uL (4.2-5.4); White Blood Count 5.79 K/uL (4.8-10.8)
[2021-09-29 07:45] LABS: Prothrombin Time 48.7 Seconds (9.0-12.0)
[2021-09-29 07:53] LABS: Albumin Level 3.2 gm/dl (3.4-5.0); BUN Creatinine Ratio 24.1 (10-20); Calcium 8.7 mg/dl (8.5-10.1); Creatinine Clr Calc Pharmacy 65.9 ml/min; Est GFR (African American) 55.6 ml/min; Magnesium 2.7 mg/dl (1.7-2.4); Phosphorus 4.7 mg/dl (2.5-4.9); Potassium 4.8 mmol/L (3.5-5.1)
[2021-09-29] MEDS ORDERED: FAMOTIDINE 20 MG in SYRINGE 3 ML IV SCH (09:00)
[2021-09-29] MEDS: GABAPENTIN 400 MG CAP PO SCH ×3 (09:26→20:11)
[2021-09-29] MEDS: FERROUS SULFATE 325 MG TAB PO SCH (09:26)
[2021-09-29] MEDS: LORATADINE 10 MG TAB PO SCH (09:27)
[2021-09-29] MEDS: ARTIFICIAL TEARS OP SCH ×2 (09:27→17:01)
[2021-09-29] MEDS: OXYBUTYNIN CHLORIDE XL 5 MG TABCR PO SCH (09:27)
[2021-09-29] MEDS: POLYETHYLENE (MIRALAX) 17 GM PACK PO SCH (09:28)
--- NOTE | 2021-09-29 10:34 | Hospitalist Progress Note ---
Date of Service September 29, 2021 Assessment & Plan (1) Acute on chronic respiratory failure with hypoxia and hypercapnia: Plan: Acute component is 2nd to CO2 narcosis in the setting of b/l pneumonia and chronic opiate usage. All opiates including fentanyl patches have been placed on hold until she is mentating and respiratory status has improved. BIPAP was required for 24 hours from 09/28 to the morning of 09/29 and is now weaned off to nasal cannula as her mentation and CO2 levels improved Initial VBG with markedly elevated pCO2 of >100. following BIPAP / her pH and pCO2 did improve. Still remains a bit confused but overall much improved For suspected pneumonia - since she lives in a SNF - will need to have broad coverage to include typicals and gram negatives. -Continue Zosyn MRSA swab negative so no need for MRSA coverage Doxy for atypicals. She carries a diagnosis of COPD and her aeration is very poor on exam. Although I can't find PFTs, etc to substantiate the COPD, she remains very ill and thus will provide steroids IV. Continue Solu-Medrol but decrease dose to 40 Mg IV every 12 hours Continue bronchodilators. She likely has REJI/OHS and she should be on chronic BIPAP at bedtime Will need to address later in this stay with AM ABG, overnight oximetry study, etc. (2) Acute metabolic encephalopathy: Plan: 2nd to markedly elevated pCO2, narcotics, pneumonia, etc.-now improving after being on BiPAP for 24 hours Checked ammonia - normal. CT head at admission negative. Continue BIPAP for hypercapnia only at bedtime now and with naps during the day Continue abx for pneumonia. (3) Multifocal pneumonia: Plan: Repeat COVID test negative. RSV/flu test negative. Repeat cxr again confirms b/l pneumonia. Continue antibiotics (4) Opiate overdose: Plan: It is unclear if she truly had a large quantity of opiates all at once leading to a typical overdose. The PDMP shows she has NOT had any oxycodone prescribed/refilled since October 2020 but the MAR from [facility] continues to show oxycodone prn. I am most concerned that due to her morbid obesity she will build-up large levels of fentanyl with ongoing use. Oxycodone usage on top of fentanyl will certainly compound this issue. All opiates are on hold. In order to avoid withdrawal we will need to resume some basic level of opiates in the next day or so. I am assuming her pain meds are for chronic lumbar back pain of which she is not complaining at this time (5) Elevated troponin: Plan: myocardial demand ischemia in the setting of #1 and #3 no evidence of ACS echo with normal LV wall motion (6) Demand ischemia of myocardium: Plan: As above (7) Chronic prescription opiate use: Plan: fentanyl patches + oxycodone per the MAR from the alf PDMP only shows refills on the fentanyl, not the oxycodone (8) Atrial fibrillation: Plan: permanent on coumadin on metoprolol, rates are controlled-convert IV Lopressor back to p.o. as she is now awake and can tolerate p.o. INR is high at 5.0, no evidence of bleeding hold coumadin, repeat INR again in am (9) COPD (chronic obstructive pulmonary disease): Plan: question of she is not on bronchodilator therapy at the SNF [id number], given how sick she is, continue withsteroids in the event there is any bronchitis/bronchospastic component to her illness (10) GERD (gastroesophageal reflux disease): Plan: Continue Pepcid but convert back to p.o. as she is tolerating p.o. (11) History of DVT (deep vein thrombosis): Plan: noted on coumadin for such + a.fib hold coumadin due to supratherapeutic INR INR in am (12) Hypertension: Plan: BPs controlled at this time Continue metoprolol Restart furosemide (13) Morbid obesity with BMI of 45.0-49.9, adult: Plan: BMI 45 (14) DVT prophylaxis: Plan: coumadin - INR supratherapeutic recheck INR am Plan: Disposition-continued stay in PCU, consult PT/OT, likely return to her alf when medically stable Berkley Ballesteros - [phone] - pt's daughter is point of contact she lives in [place] Admission and Anticipated Discharge Date Admission Date: September 28, 2021 Subjective Patient was initially lethargic when I saw her but woke up and was able to carry on conversation although she remains confused at times. Earlier this morning, she reportedly was a bit agitated and trying to pull out her line. She does seem much improved now. She denies pain at this time. Denies shortness of breath She does admit that she is starting to get a bit anxious about being in the hospital She thinks she is in [facility]. Denies nausea or abdominal pain. Telemetry with atrial fibrillation with rates in the 60s to 70s Review of Systems Review of Systems: All systems reviewed & are unremarkable except as noted in HPI & below Physical Exam Constitutional: WD/WN, vitals as above + morbidly obese Eyes: PERRL, conjunctivae normal, anicteric sclerae ENMT: external ear and nose normal, oropharynx normal Neck: trachea midline, no thyromegaly Respiratory: normal respiratory effort, lungs clear to auscultation Cardiovascular: Rate/Rhythm: regular rate and + irregularly irregular Heart Sounds: no murmur Extremities: + edema (4+ pitting edema to the thighs bilaterally) Chest (Breasts): Chest: normal inspection of chest Gastrointestinal (Abdomen): normal bowel sounds, soft, nontender, no hepatosplenomegaly Musculoskeletal: Extremities: + extremities abnormal to inspection (Bruising on right shoulder), no cyanosis and no clubbing Skin: no rashes, warm and dry Neurologic: moves all extremities and awake; no focal motor deficits Psychiatric: Orientation: alert, oriented to person and cooperative Results & Data Results & Data ([facility]) Vital Signs (Past 12 Hours) Vital Signs Temp Pulse Pulse Resp BP Pulse Ox 09/29/21 07:52 36.6 C 62 19 130/77 96 09/29/21 03:29 74 22 95 09/29/21 03:05 36.7 C 78 20 121/75 95 09/28/21 23:40 36.8 C 72 20 117/77 96 09/28/21 22:42 69 23 94 Laboratory Results 09/29/21 09/29/21 09/29/21 Range/Units 07:15 07:08 07:08 WBC (4.8-10.8) K/uL RBC (4.2-5.4) M/uL Hgb (12.0-16.0) g/dL Hct (37-47) % MCV (80-100) fL MCH (25-34) pg MCHC (32-36) g/dL RDW Std Deviation (36.4-46.3) fL RDW Coeff of Tatyana (11.5-14.5) % Plt Count (130-400) K/uL MPV (7.4-10.4) fL Immature Gran % (Auto) % Neut % (Auto) % Lymph % (Auto) % [place] % (Auto) % Eos % (Auto) % Baso % (Auto) % Neut # (Auto) (1.4-6.5) K/uL Lymph # (Auto) (1.2-3.4) K/uL [place] # (Auto) (0.11-0.59) K/uL Eos # (Auto) (0-0.5) K/uL Baso # (Auto) (0-0.2) K/uL Immature Gran # (Auto) (0.00-0.02) K/uL PT 48.7 H (9.0-12.0) Seconds INR 5.0 H (0.9-1.1) VBG pH 7.32 L (7.36-7.41) VBG pCO2 67 H (38-50) mmHg VBG pO2 41 mmHg VBG HCO3 33 mmol/L VBG O2 Saturation 69.1 % VBG Base Excess 5.4 mEq/L Barometric Pressure 726.0 mm/Hg Sodium 143 (136-145) mmol/L Potassium 4.8 (3.5-5.1) mmol/L Chloride 104 (98-107) mmol/L Carbon Dioxide 33 H (21-32) mmol/L Anion Gap 6 (3-11) BUN 27 H (6-23) mg/dl Creatinine 1.12 (0.6-1.2) mg/dl Est Cr Clr Drug Dosing 65.9 ml/min Est GFR ( Amer) 55.6 ml/min Est GFR (Non-Af Amer) 48.0 ml/min BUN/Creatinine Ratio 24.1 H (10-20) Glucose 157 H (70-99(Fasting)) mg/dl Calcium 8.7 (8.5-10.1) mg/dl Phosphorus 4.7 (2.5-4.9) mg/dl Magnesium 2.7 H (1.7-2.4) mg/dl Albumin 3.2 L (3.4-5.0) gm/dl 09/29/21 09/29/21 Range/Units 07:08 00:39 WBC 5.79 (4.8-10.8) K/uL RBC 3.75 L (4.2-5.4) M/uL Hgb 11.4 L (12.0-16.0) g/dL Hct 39.2 (37-47) % MCV 104.5 H (80-100) fL MCH 30.4 (25-34) pg MCHC 29.1 L (32-36) g/dL RDW Std Deviation 67.5 H (36.4-46.3) fL RDW Coeff of Tatyana 17.8 H (11.5-14.5) % Plt Count 186 (130-400) K/uL MPV 10.5 H (7.4-10.4) fL Immature Gran % (Auto) 0.7 % Neut % (Auto) 80.7 % Lymph % (Auto) 17.4 % [place] % (Auto) 1.2 % Eos % (Auto) 0.0 % Baso % (Auto) 0.0 % Neut # (Auto) 4.67 (1.4-6.5) K/uL Lymph # (Auto) 1.01 L (1.2-3.4) K/uL [place] # (Auto) 0.07 L (0.11-0.59) K/uL Eos # (Auto) 0.00 (0-0.5) K/uL Baso # (Auto) 0.00 (0-0.2) K/uL Immature Gran # (Auto) 0.04 H (0.00-0.02) K/uL PT (9.0-12.0) Seconds INR (0.9-1.1) VBG pH 7.32 L (7.36-7.41) VBG pCO2 66 H (38-50) mmHg VBG pO2 40 mmHg VBG HCO3 33 mmol/L VBG O2 Saturation 68.2 % VBG Base Excess 5.4 mEq/L Barometric Pressure 728.2 mm/Hg Sodium (136-145) mmol/L Potassium (3.5-5.1) mmol/L Chloride (98-107) mmol/L Carbon Dioxide (21-32) mmol/L Anion Gap (3-11) BUN (6-23) mg/dl Creatinine (0.6-1.2) mg/dl Est Cr Clr Drug Dosing ml/min Est GFR ( Amer) ml/min Est GFR (Non-Af Amer) ml/min BUN/Creatinine Ratio (10-20) Glucose (70-99(Fasting)) mg/dl Calcium (8.5-10.1) mg/dl Phosphorus (2.5-4.9) mg/dl Magnesium (1.7-2.4) mg/dl Albumin (3.4-5.0) gm/dl PG Care Time/CCT Total # of Minutes Spent Total Time Spent with Patient: Total time spent is greater than 50% in coordination of care (as documented) at patient's floor/unit and/or counseling patient: Coding Level of Care Code 78616 Subseq Hosp Care Lvl 3 Diagnoses Acute on chronic respiratory failure with hypoxia and hypercapnia J96.21; J96.22 Acute metabolic encephalopathy G93.41 Multifocal pneumonia J18.9 Opiate overdose T40.601A Encounter type: initial encounter Injury intent: accidental or unintentional Elevated troponin R77.8 Demand ischemia of myocardium I24.8 Chronic prescription opiate use Z79.891 Atrial fibrillation I48.91 COPD (chronic obstructive pulmonary disease) J44.9 GERD (gastroesophageal reflux disease) K21.9 History of DVT (deep vein thrombosis) Z86.718 Hypertension I10 Morbid obesity with BMI of 45.0-49.9, adult E66.01; Z68.42 DVT prophylaxis Z29.9 (1) Opiate overdose Encounter type: initial encounter Injury intent: accidental or unintentional Qualified Code(s): T40.601A - Poisoning by unspecified narcotics, accidental (unintentional), initial encounter
[2021-09-29] MEDS: FUROSEMIDE 40 MG TAB PO SCH (11:56)
[2021-09-29] MEDS: PANTOprazole 40 MG TAB PO SCH (20:10)
[2021-09-29] MEDS: METOPROLOL TARTRATE 25 MG TAB PO SCH (20:11)
[2021-09-29] MEDS: FAMOTIDINE 20 MG TAB PO SCH (20:12)
[2021-09-30] MEDS: ARTIFICIAL TEARS OP SCH ×3 (00:30→15:50)
[2021-09-30] MEDS: PIPERACILLIN/TAZOBACTAM 4.5 GM in DEXTROSE 5% 100 ML IV SCH ×3 (02:29→19:22)
[2021-09-30] MEDS: DOXYCYCLINE HYCLATE 100 MG in DEXTROSE 5% 100 ML IV SCH ×2 (06:05→17:00)
[2021-09-30] MEDS: ALBUT/IPRATROP 3MG/0.5MG NEB 3 ML VIAL NEB SCH ×4 (07:17→19:27)
[2021-09-30 07:25] LABS: Prothrombin Time 54.2 Seconds (9.0-12.0)
[2021-09-30 07:33] LABS: Albumin Level 3.1 gm/dl (3.4-5.0); BUN Creatinine Ratio 27.7 (10-20); Calcium 8.2 mg/dl (8.5-10.1); Creatinine Clr Calc Pharmacy 73.8 ml/min; Est GFR (African American) 63.1 ml/min; Est GFR (Non-African American) 54.4 ml/min; Magnesium 2.6 mg/dl (1.7-2.4); Phosphorus 3.6 mg/dl (2.5-4.9)
[2021-09-30 07:50] LABS: INR 5.6 (0.9-1.1)
[2021-09-30] MEDS: FAMOTIDINE 20 MG TAB PO SCH ×2 (08:18→20:18)
[2021-09-30] MEDS: FERROUS SULFATE 325 MG TAB PO SCH (08:18)
[2021-09-30] MEDS: FOLIC ACID 1 MG TAB PO SCH (08:18)
[2021-09-30] MEDS: methylPREDNISolone 40 MG in SYRINGE 0 ML IV SCH ×2 (08:19→20:18)
[2021-09-30] MEDS: FUROSEMIDE 40 MG TAB PO SCH (08:19)
[2021-09-30] MEDS: GABAPENTIN 400 MG CAP PO SCH ×3 (08:19→20:18)
[2021-09-30] MEDS: LORATADINE 10 MG TAB PO SCH (08:19)
[2021-09-30] MEDS: OXYBUTYNIN CHLORIDE XL 5 MG TABCR PO SCH (08:20)
[2021-09-30] MEDS: METOPROLOL TARTRATE 25 MG TAB PO SCH ×2 (08:20→20:18)
[2021-09-30] MEDS: POLYETHYLENE (MIRALAX) 17 GM PACK PO SCH (08:21)
[2021-09-30] MEDS: PANTOprazole 40 MG TAB PO SCH ×2 (08:21→20:18)
--- NOTE | 2021-09-30 09:10 | Electrocardiogram Report ---
Test Reason : Blood Pressure : / mmHG Vent. Rate : 080 BPM Atrial Rate : 080 BPM P-R Int : 000 ms QRS Dur : 092 ms QT Int : 404 ms P-R-T Axes : 000 043 107 degrees QTc Int : 465 ms Atrial fibrillation Abnormal ECG When compared with ECG of 28-SEP-2021 07:43, No significant change was found Confirmed by Kishan Patel ([id number]) on 09/30/2021 9:10:19 AM Referred By: REFERRED SELF Confirmed By:Geovanny Patel
[2021-09-30] MEDS ORDERED: PHYTONADIONE 5 MG TAB PO STA (09:20)
[2021-09-30 09:29] LABS: Hematocrit (blood only) 37.2 % (37-47); Hemoglobin 10.9 g/dL (12.0-16.0); Immature Granulocytes # (auto) 0.02 K/uL (0.00-0.02); Immature Granulocytes % (auto) 0.3 %; Lymphocytes # (auto) 1.34 K/uL (1.2-3.4); Lymphocytes % (auto) 21.3 %; Mean Corpuscular Hemoglobin 30.3 pg (25-34); Mean Corpuscular Hgb Conc 29.3 g/dL (32-36); Mean Corpuscular Volume 103.3 fL (80-100); Monocytes # (auto) 0.32 K/uL (0.11-0.59); Monocytes % (auto) 5.1 %; Neutrophils % (auto) 73.3 %; Platelet Count 201 K/uL (130-400); White Blood Count 6.28 K/uL (4.8-10.8)
--- NOTE | 2021-09-30 15:22 | Hospitalist Progress Note ---
Date of Service September 30, 2021 Assessment & Plan (1) Acute on chronic respiratory failure with hypoxia and hypercapnia: Plan: Acute component is 2nd to CO2 narcosis in the setting of b/l pneumonia and chronic opiate usage. All opiates including fentanyl patches and oxycodone have been HELD BIPAP was required for 24 hours from 09/28 to the morning of 09/29 and is now weaned off to nasal cannula as her mentation and CO2 levels improved Initial VBG with markedly elevated pCO2 of >100. following BIPAP / her pH and pCO2 did improve. Mentation now much improved For suspected pneumonia - since she lives in a SNF - will need to have broad coverage to include typicals and gram negatives. -Continue Zosyn MRSA swab negative so no need for MRSA coverage Doxy for atypicals. She carries a diagnosis of COPD and her aeration is very poor on exam. Although I can't find PFTs, etc to substantiate the COPD, she was placed on steroids due to her acuity of illness Continue Solu-Medrol 40 Mg IV every 12 hours Continue bronchodilators. She likely has REJI/OHS and she should be on chronic BIPAP at bedtime Will need to address later in this stay with AM ABG, overnight oximetry study, etc. to qualify here for BiPAP -continue BiPAP qhs and with naps during the daytime (2) Acute metabolic encephalopathy: Plan: 2nd to markedly elevated PaCO2, narcotics, pneumonia, etc.-now significantly improved after being on BiPAP Checked ammonia - normal. CT head at admission negative. Continue BIPAP for hypercapnia at bedtime now and with naps during the day Continue abx for pneumonia. (3) Multifocal pneumonia: Plan: Repeat COVID test negative. RSV/flu test negative. Repeat cxr again confirms b/l pneumonia. Continue antibiotics (4) Opiate overdose: Plan: It is unclear if she truly had a large quantity of opiates all at once leading to a typical overdose. The PDMP shows she has NOT had any oxycodone prescribed/refilled since October 2020 but the MAR from [facility] continues to show oxycodone prn. I am most concerned that due to her morbid obesity she will build-up large levels of fentanyl with ongoing use. Oxycodone usage on top of fentanyl will certainly compound this issue. All opiates are on hold and she actually has no significant c/o pain Fortunately, she is not having any opioid withdrawal symptoms either if needed, would only give lower doses of hydrocodone/APAP or another non-opioid analgesic (5) Elevated troponin: Plan: myocardial demand ischemia in the setting of #1 and #3 no evidence of ACS echo with normal LV wall motion (6) Demand ischemia of myocardium: Plan: As above (7) Chronic prescription opiate use: Plan: as above HOLD and would not recommend restarting these (8) Atrial fibrillation: Plan: permanent on coumadin rates controlled here continue metoprolol INR is high again at 5.6, no evidence of bleeding, but with concern for further rise in INR given she is on corticosteroids--> give Vitamin K 1 mg po x 1 hold coumadin, repeat INR again in am (9) COPD (chronic obstructive pulmonary disease): Plan: question of she is not on bronchodilator therapy at the [facility] [id number], given how sick she is, continue withsteroids in the event there is any bronchitis/bronchospastic component to her illness (10) GERD (gastroesophageal reflux disease): Plan: Continue Pepcid (11) History of DVT (deep vein thrombosis): Plan: noted on coumadin for such + a.fib hold coumadin due to supratherapeutic INR INR in am (12) Hypertension: Plan: BPs controlled at this time Continue metoprolol, furosemide (13) Morbid obesity with BMI of 45.0-49.9, adult: Plan: BMI 46.7 needs weight loss (14) DVT prophylaxis: Plan: coumadin - INR supratherapeutic recheck INR am Plan: Disposition-continued stay in PCU, consult PT/OT, likely return to her [facility] when medically stable in the next 1-2 days Pt requests I call her daughter, Carmencita, with an update Admission and Anticipated Discharge Date Admission Date: September 28, 2021 Subjective Much improved today as far as mentation goes. Was more conversive, oriented, and appropriate with answers. Denies pain other than some chronic LBP and joint pains but said it was not severe. She denies SOB or chest pains. Is eating and drinking. Tele with Afib, rates 60-70s Review of Systems Review of Systems: All systems reviewed & are unremarkable except as noted in HPI & below Physical Exam Constitutional: WD/WN, vitals as above + morbidly obese Eyes: + anicteric sclerae Neck: trachea midline, no thyromegaly Respiratory: normal respiratory effort, lungs clear to auscultation Cardiovascular: Rate/Rhythm: regular rate and + irregularly irregular Heart Sounds: no murmur Extremities: + edema (4+ pitting edema to the thighs bilaterally) Chest (Breasts): Chest: normal inspection of chest Gastrointestinal (Abdomen): normal bowel sounds, soft, nontender, no hepatosplenomegaly Musculoskeletal: Extremities: + extremities abnormal to inspection (Bruising on right shoulder), no cyanosis and no clubbing Skin: no rashes, warm and dry Neurologic: moves all extremities and awake; no focal motor deficits Psychiatric: Orientation: alert, oriented to person, oriented to place and cooperative Results & Data Results & Data ([facility]) Vital Signs (Past 12 Hours) Vital Signs Temp Pulse Resp BP BP Pulse Ox 09/30/21 15:12 80 20 94 09/30/21 11:18 36.4 C L 64 20 133/94 96 09/30/21 11:02 82 20 93 09/30/21 07:31 36.6 C 60 20 139/82 97 09/30/21 07:18 76 20 97 09/30/21 04:00 36.5 C 71 20 137/84 97 Laboratory Results 09/30/21 09/30/21 09/30/21 Range/Units 05:59 05:59 05:58 WBC 6.28 (4.8-10.8) K/uL RBC 3.60 L (4.2-5.4) M/uL Hgb 10.9 L (12.0-16.0) g/dL Hct 37.2 (37-47) % MCV 103.3 H (80-100) fL MCH 30.3 (25-34) pg MCHC 29.3 L (32-36) g/dL Plt Count 201 (130-400) K/uL Immature Gran % (Auto) 0.3 % Neut % (Auto) 73.3 % Lymph % (Auto) 21.3 % [place] % (Auto) 5.1 % Eos % (Auto) 0.0 % Baso % (Auto) 0.0 % Neut # (Auto) 4.60 (1.4-6.5) K/uL Lymph # (Auto) 1.34 (1.2-3.4) K/uL [place] # (Auto) 0.32 (0.11-0.59) K/uL Eos # (Auto) 0.00 (0-0.5) K/uL Baso # (Auto) 0.00 (0-0.2) K/uL Immature Gran # (Auto) 0.02 (0.00-0.02) K/uL PT 54.2 H (9.0-12.0) Seconds INR 5.6 H* (0.9-1.1) Sodium 144 (136-145) mmol/L Potassium 4.0 (3.5-5.1) mmol/L Chloride 105 (98-107) mmol/L Carbon Dioxide 34 H (21-32) mmol/L Anion Gap 5 (3-11) BUN 28 H (6-23) mg/dl Creatinine 1.01 (0.6-1.2) mg/dl Est Cr Clr Drug Dosing 73.8 ml/min Est GFR ( Amer) 63.1 ml/min Est GFR (Non-Af Amer) 54.4 ml/min BUN/Creatinine Ratio 27.7 H (10-20) Glucose 172 H (70-99(Fasting)) mg/dl Calcium 8.2 L (8.5-10.1) mg/dl Phosphorus 3.6 D (2.5-4.9) mg/dl Magnesium 2.6 H (1.7-2.4) mg/dl Albumin 3.1 L (3.4-5.0) gm/dl PG Care Time/CCT Total # of Minutes Spent Total Time Spent with Patient: Total time spent is greater than 50% in coordination of care (as documented) at patient's floor/unit and/or counseling patient: Coding Level of Care Code 09488 Subseq Hosp Care Lvl 3 Diagnoses Acute on chronic respiratory failure with hypoxia and hypercapnia J96.21; J96.22 Acute metabolic encephalopathy G93.41 Multifocal pneumonia J18.9 Opiate overdose T40.601A Encounter type: initial encounter Injury intent: accidental or unintentional Elevated troponin R77.8 Demand ischemia of myocardium I24.8 Chronic prescription opiate use Z79.891 Atrial fibrillation I48.91 COPD (chronic obstructive pulmonary disease) J44.9 GERD (gastroesophageal reflux disease) K21.9 History of DVT (deep vein thrombosis) Z86.718 Hypertension I10 Morbid obesity with BMI of 45.0-49.9, adult E66.01; Z68.42 DVT prophylaxis Z29.9 (1) Opiate overdose Encounter type: initial encounter Injury intent: accidental or unintentional Qualified Code(s): T40.601A - Poisoning by unspecified narcotics, accidental (unintentional), initial encounter
--- NOTE | 2021-09-30 15:37 | Electrocardiogram Report ---
Test Reason : Blood Pressure : / mmHG Vent. Rate : 062 BPM Atrial Rate : 052 BPM P-R Int : 000 ms QRS Dur : 086 ms QT Int : 434 ms P-R-T Axes : 000 031 095 degrees QTc Int : 440 ms Atrial fibrillation Abnormal ECG When compared with ECG of 29-SEP-2021 16:52, (unconfirmed) No significant change was found Confirmed by Kishan Patel ([id number]) on 09/30/2021 3:37:06 PM Referred By: REFERRED SELF Confirmed By:Geovanny Patel
[2021-10-01] MEDS: ARTIFICIAL TEARS OP SCH ×4 (00:27→23:52)
[2021-10-01] MEDS: PIPERACILLIN/TAZOBACTAM 4.5 GM in DEXTROSE 5% 100 ML IV SCH ×3 (02:24→19:17)
[2021-10-01 05:58] LABS: Prothrombin Time 20.5 Seconds (9.0-12.0)
[2021-10-01 06:17] LABS: Hemoglobin 11.3 g/dL (12.0-16.0); Mean Corpuscular Hemoglobin 30.4 pg (25-34); Mean Corpuscular Hgb Conc 29.7 g/dL (32-36); Mean Corpuscular Volume 102.2 fL (80-100); Mean Platelet Volume 10.1 fL (7.4-10.4); Platelet Count 188 K/uL (130-400); RDW Coefficient of Variation 17.2 % (11.5-14.5); RDW Standard Deviation 64.3 fL (36.4-46.3); Red Blood Count 3.72 M/uL (4.2-5.4); White Blood Count 6.71 K/uL (4.8-10.8)
[2021-10-01 06:20] LABS: BUN Creatinine Ratio 30.6 (10-20); Calcium 8.3 mg/dl (8.5-10.1); Creatinine Clr Calc Pharmacy 75.5 ml/min; Est GFR (African American) 65.4 ml/min; Est GFR (Non-African American) 56.4 ml/min; Magnesium 2.3 mg/dl (1.7-2.4); Potassium 3.8 mmol/L (3.5-5.1)
[2021-10-01] MEDS: DOXYCYCLINE HYCLATE 100 MG in DEXTROSE 5% 100 ML IV SCH ×2 (06:24→17:35)
[2021-10-01 06:25] LABS: Immature Granulocytes # (auto) 0.03 K/uL (0.00-0.02); Immature Granulocytes % (auto) 0.4 %; Lymphocytes # (auto) 1.18 K/uL (1.2-3.4); Lymphocytes % (auto) 17.6 %; Monocytes # (auto) 0.27 K/uL (0.11-0.59); Neutrophils # (auto) 5.23 K/uL (1.4-6.5)
[2021-10-01] MEDS: ALBUT/IPRATROP 3MG/0.5MG NEB 3 ML VIAL NEB SCH (07:22)
[2021-10-01] MEDS: FOLIC ACID 1 MG TAB PO SCH (08:15)
[2021-10-01] MEDS: methylPREDNISolone 40 MG in SYRINGE 0 ML IV SCH ×2 (08:15→21:06)
[2021-10-01] MEDS: PANTOprazole 40 MG TAB PO SCH ×2 (08:15→21:06)
[2021-10-01] MEDS: METOPROLOL TARTRATE 25 MG TAB PO SCH ×2 (08:16→21:06)
[2021-10-01] MEDS: FUROSEMIDE 40 MG TAB PO SCH (08:16)
[2021-10-01] MEDS: FERROUS SULFATE 325 MG TAB PO SCH (08:16)
[2021-10-01] MEDS: OXYBUTYNIN CHLORIDE XL 5 MG TABCR PO SCH (08:16)
[2021-10-01] MEDS: GABAPENTIN 400 MG CAP PO SCH ×3 (08:16→21:06)
[2021-10-01] MEDS: LORATADINE 10 MG TAB PO SCH (08:16)
[2021-10-01] MEDS: FAMOTIDINE 20 MG TAB PO SCH ×2 (08:17→21:06)
[2021-10-01] MEDS: POLYETHYLENE (MIRALAX) 17 GM PACK PO SCH (08:17)
[2021-10-01] MEDS ORDERED: POTASSIUM CHLORIDE CRTAB 20 MEQ TABCR PO STA (09:01)
[2021-10-01] MEDS ORDERED: ALBUT/IPRATROP 3MG/0.5MG NEB 3 ML VIAL NEB PRN (09:04)
--- NOTE | 2021-10-01 13:08 | Hospitalist Progress Note ---
Date of Service October 01, 2021 Assessment & Plan (1) Acute on chronic respiratory failure with hypoxia and hypercapnia: Plan: Acute component is 2nd to CO2 narcosis in the setting of b/l pneumonia and chronic opiate usage. All opiates including fentanyl patches and oxycodone have been HELD and she is now much improved BIPAP was required for 24 hours from 09/28 to the morning of 09/29 and is now weaned off to nasal cannula as her mentation and CO2 levels improved Initial VBG with markedly elevated pCO2 of >100. following BIPAP / her pH and pCO2 did improve. Now weaned down to 2 L nasal cannula for oxygen-I do not believe she is on oxygen at baseline Mentation now much improved For suspected pneumonia - since she lives in a SNF - will need to have broad coverage to include typicals and gram negatives. -Continue Zosyn MRSA swab negative so no need for MRSA coverage Continue Doxy for atypicals. She carries a diagnosis of COPD and her aeration is very poor on exam. Although I can't find PFTs, etc to substantiate the COPD, she was placed on steroids due to her acuity of illness Continue Solu-Medrol 40 Mg IV every 12 hours and convert to prednisone tomorrow to finish out a 1 week course Continue bronchodilators. She likely has REJI/OHS and she should be on chronic BIPAP at bedtime Will need to perform AM ABG, overnight oximetry study tonight to qualify here for BiPAP -continue BiPAP qhs and with naps during the daytime-she is tolerating this very well-we will hold off on BiPAP for tonight to perform overnight pulse oximetry (2) Acute metabolic encephalopathy: Plan: 2nd to markedly elevated PaCO2, narcotics, pneumonia, etc.-now significantly improved after being on BiPAP Checked ammonia - normal. CT head at admission negative. Continue BIPAP for hypercapnia at bedtime now and with naps during the day Continue abx for pneumonia. (3) Multifocal pneumonia: Plan: Repeat COVID test negative. RSV/flu test negative. Repeat cxr again confirms b/l pneumonia. Continue antibiotics (4) Opiate overdose: Plan: It is unclear if she truly had a large quantity of opiates all at once leading to a typical overdose. The PDMP shows she has NOT had any oxycodone prescribed/refilled since October 2020 but the MAR from [facility] continues to show oxycodone prn. I am most concerned that due to her morbid obesity she will build-up large levels of fentanyl with ongoing use. Oxycodone usage on top of fentanyl will certainly compound this issue. All opiates are on hold and she actually has no significant c/o pain Fortunately, she is not having any opioid withdrawal symptoms either if needed, would only give lower doses of hydrocodone/APAP or another non-opioid analgesic (5) Elevated troponin: Plan: myocardial demand ischemia in the setting of #1 and #3 no evidence of ACS echo with normal LV wall motion (6) Demand ischemia of myocardium: Plan: As above (7) Chronic prescription opiate use: Plan: as above HOLD and would not recommend restarting these (8) Atrial fibrillation: Plan: permanent on coumadin rates controlled here continue metoprolol INR peaked at 5.6, no evidence of bleeding but does have a lot of bruising around the right shoulder-but with concern for further rise in INR given she is on corticosteroids--> gave Vitamin K 1 mg po x 1 on 09/30 INR now down to 2.0 Okay to restart coumadin at home dosing of 3 mg daily-repeat INR again in am (9) COPD (chronic obstructive pulmonary disease): Plan: she is not on bronchodilator therapy at the SNF [id number], given how sick she is, continue with steroids in the event there is any bronchitis/bronchospastic component to her illness (10) GERD (gastroesophageal reflux disease): Plan: Continue Pepcid (11) History of DVT (deep vein thrombosis): Plan: noted on coumadin for such + a.fib (12) Hypertension: Plan: BPs controlled at this time Continue metoprolol, furosemide (13) Morbid obesity with BMI of 45.0-49.9, adult: Plan: BMI 46.7 needs weight loss (14) DVT prophylaxis: Plan: coumadin Plan: Disposition-continued stay but downgrade to medical/surgical floor, likely will be able to return to [facility] facility in the next 1 to 2 days Admission and Anticipated Discharge Date Admission Date: September 28, 2021 Subjective Patient reports feeling better today and wants to know what happened to bring her to the hospital as she forgets. We reviewed her hospital course so far. She denies cough or shortness of breath. Is eating and drinking well, overall feels at her baseline. Reports that she is surprisingly not having much pain despite now being on fentanyl patch and oxycodone for many days. Telemetry with atrial fibrillation, rate controlled Review of Systems Review of Systems: All systems reviewed & are unremarkable except as noted in HPI & below Physical Exam Constitutional: WD/WN, vitals as above + morbidly obese Eyes: + anicteric sclerae Neck: trachea midline, no thyromegaly Respiratory: normal respiratory effort, lungs clear to auscultation Cardiovascular: Rate/Rhythm: regular rate and + irregularly irregular Heart Sounds: no murmur Extremities: + edema (4+ pitting edema to the thighs bilaterally) Chest (Breasts): Chest: normal inspection of chest Gastrointestinal (Abdomen): normal bowel sounds, soft, nontender, no hepatosplenomegaly Musculoskeletal: Extremities: + extremities abnormal to inspection (Bruising on right shoulder), no cyanosis and no clubbing Skin: no rashes, warm and dry Neurologic: moves all extremities and awake; no focal motor deficits Psychiatric: Orientation: alert, oriented to person, oriented to place and cooperative Results & Data Results & Data ([facility]) Vital Signs (Past 12 Hours) Vital Signs Temp Pulse Resp BP BP Pulse Ox Pulse Ox 10/01/21 12:16 36.7 C 67 19 151/94 H 98 10/01/21 07:54 36.8 C 67 19 139/91 98 10/01/21 07:22 69 17 93 10/01/21 04:12 98 10/01/21 04:11 36.8 C 68 18 127/79 98 10/01/21 03:30 25 H 98 10/01/21 03:00 98 Laboratory Results 10/01/21 10/01/21 10/01/21 Range/Units 05:32 05:26 05:26 WBC 6.71 (4.8-10.8) K/uL RBC 3.72 L (4.2-5.4) M/uL Hgb 11.3 L (12.0-16.0) g/dL Hct 38.0 (37-47) % MCV 102.2 H (80-100) fL MCH 30.4 (25-34) pg MCHC 29.7 L (32-36) g/dL RDW Std Deviation 64.3 H (36.4-46.3) fL RDW Coeff of Tatyana 17.2 H (11.5-14.5) % Plt Count 188 (130-400) K/uL MPV 10.1 (7.4-10.4) fL Immature Gran % (Auto) 0.4 % Neut % (Auto) 78.0 % Lymph % (Auto) 17.6 % [place] % (Auto) 4.0 % Eos % (Auto) 0.0 % Baso % (Auto) 0.0 % Neut # (Auto) 5.23 (1.4-6.5) K/uL Lymph # (Auto) 1.18 L (1.2-3.4) K/uL [place] # (Auto) 0.27 (0.11-0.59) K/uL Eos # (Auto) 0.00 (0-0.5) K/uL Baso # (Auto) 0.00 (0-0.2) K/uL Immature Gran # (Auto) 0.03 H (0.00-0.02) K/uL PT 20.5 H (9.0-12.0) Seconds INR 2.0 H (0.9-1.1) Sodium 141 (136-145) mmol/L Potassium 3.8 (3.5-5.1) mmol/L Chloride 102 (98-107) mmol/L Carbon Dioxide 33 H (21-32) mmol/L Anion Gap 6 (3-11) BUN 30 H (6-23) mg/dl Creatinine 0.98 (0.6-1.2) mg/dl Est Cr Clr Drug Dosing 75.5 ml/min Est GFR ( Amer) 65.4 ml/min Est GFR (Non-Af Amer) 56.4 ml/min BUN/Creatinine Ratio 30.6 H (10-20) Glucose 162 H (70-99(Fasting)) mg/dl Calcium 8.3 L (8.5-10.1) mg/dl Magnesium 2.3 (1.7-2.4) mg/dl PG Care Time/CCT Total # of Minutes Spent Total Time Spent with Patient: Total time spent is greater than 50% in coordination of care (as documented) at patient's floor/unit and/or counseling patient: Coding Level of Care Code 53132 Subseq Hosp Care Lvl 3 Diagnoses Acute on chronic respiratory failure with hypoxia and hypercapnia J96.21; J96.22 Acute metabolic encephalopathy G93.41 Multifocal pneumonia J18.9 Opiate overdose T40.601A Encounter type: initial encounter Injury intent: accidental or unintentional Elevated troponin R77.8 Demand ischemia of myocardium I24.8 Chronic prescription opiate use Z79.891 Atrial fibrillation I48.91 COPD (chronic obstructive pulmonary disease) J44.9 GERD (gastroesophageal reflux disease) K21.9 History of DVT (deep vein thrombosis) Z86.718 Hypertension I10 Morbid obesity with BMI of 45.0-49.9, adult E66.01; Z68.42 DVT prophylaxis Z29.9 (1) Opiate overdose Encounter type: initial encounter Injury intent: accidental or unintentional Qualified Code(s): T40.601A - Poisoning by unspecified narcotics, accidental (unintentional), initial encounter
[2021-10-01] MEDS: WARFARIN SOD 3 MG TAB PO SCH (15:42)
[2021-10-02] MEDS: PIPERACILLIN/TAZOBACTAM 4.5 GM in DEXTROSE 5% 100 ML IV SCH ×2 (01:55→09:52)
[2021-10-02] MEDS: DOXYCYCLINE HYCLATE 100 MG in DEXTROSE 5% 100 ML IV SCH (06:06)
[2021-10-02 06:20] LABS: Base Excess ABG 6.5 mEq/L (-9-1.8); HCO3 ABG 33 mmol/L (19-24); Oxygen Saturation ABG 97.8 % (90-95); PCO2 ABG 55 mmHg (35-46); PO2 ABG 108 mmHg (80-95)
[2021-10-02 06:21] LABS: Allen Test Pos (Pos)
[2021-10-02 06:27] LABS: Hematocrit (blood only) 39.6 % (37-47); Hemoglobin 11.7 g/dL (12.0-16.0); INR 1.6 (0.9-1.1); Immature Granulocytes % (auto) 1.5 %; Lymphocytes # (auto) 1.32 K/uL (1.2-3.4); Lymphocytes % (auto) 19.4 %; Mean Corpuscular Hemoglobin 29.9 pg (25-34); Mean Corpuscular Hgb Conc 29.5 g/dL (32-36); Mean Corpuscular Volume 101.3 fL (80-100); Monocytes # (auto) 0.28 K/uL (0.11-0.59); Monocytes % (auto) 4.1 %; Neutrophils # (auto) 5.11 K/uL (1.4-6.5); Platelet Count 186 K/uL (130-400); Prothrombin Time 16.6 Seconds (9.0-12.0); RDW Standard Deviation 62.7 fL (36.4-46.3); Red Blood Count 3.91 M/uL (4.2-5.4); White Blood Count 6.81 K/uL (4.8-10.8)
[2021-10-02 06:50] LABS: BUN Creatinine Ratio 31.6 (10-20); Calcium 8.1 mg/dl (8.5-10.1); Creatinine Clr Calc Pharmacy 77.8 ml/min; Est GFR (African American) 67.9 ml/min; Est GFR (Non-African American) 58.6 ml/min; Potassium 3.6 mmol/L (3.5-5.1)
[2021-10-02] MEDS ORDERED: POTASSIUM CHLORIDE CRTAB 20 MEQ TABCR PO STA (08:43)
[2021-10-02] MEDS: CYANOCOBALAMIN (B-12) 500 MCG TABLET PO SCH (10:10)
[2021-10-02] MEDS: ARTIFICIAL TEARS OP SCH ×2 (10:10→15:33)
[2021-10-02] MEDS: ENOXAPARIN 150 MG/ML SYR SQ SCH ×2 (10:11→20:14)
[2021-10-02] MEDS: FAMOTIDINE 20 MG TAB PO SCH ×2 (10:14→20:16)
[2021-10-02] MEDS: FUROSEMIDE 40 MG TAB PO SCH (10:15)
[2021-10-02] MEDS: FOLIC ACID 1 MG TAB PO SCH (10:15)
[2021-10-02] MEDS: FERROUS SULFATE 325 MG TAB PO SCH (10:15)
[2021-10-02] MEDS: GABAPENTIN 400 MG CAP PO SCH ×3 (10:16→20:16)
[2021-10-02] MEDS: MULTIVITAMIN TAB PO SCH (10:19)
[2021-10-02] MEDS: PANTOprazole 40 MG TAB PO SCH ×2 (10:19→20:16)
[2021-10-02] MEDS: OXYBUTYNIN CHLORIDE XL 5 MG TABCR PO SCH (10:19)
[2021-10-02] MEDS: METOPROLOL TARTRATE 25 MG TAB PO SCH ×2 (10:19→20:16)
[2021-10-02] MEDS: predniSONE 20 MG TAB PO SCH (10:19)
[2021-10-02] MEDS: POLYETHYLENE (MIRALAX) 17 GM PACK PO SCH (10:19)
[2021-10-02] MEDS: LORATADINE 10 MG TAB PO SCH (12:25)
[2021-10-02] MEDS: WARFARIN SOD 3 MG TAB PO SCH (15:32)
--- NOTE | 2021-10-02 18:03 | Hospitalist Progress Note ---
Date of Service October 02, 2021 Assessment & Plan (1) Acute on chronic respiratory failure with hypoxia and hypercapnia: Plan: Acute component is 2nd to CO2 narcosis in the setting of b/l pneumonia and chronic opiate usage. All opiates including fentanyl patches and oxycodone have been HELD and she is now much improved BIPAP was required for 24 hours from 09/28 to the morning of 09/29 and is now weaned off to nasal cannula as her mentation and CO2 levels improved Initial VBG with markedly elevated pCO2 of >100. following BIPAP / her pH and pCO2 did improve. Now weaned down to 2 L nasal cannula for oxygen-I do not believe she is on oxygen at baseline Mentation now much improved For suspected pneumonia - since she lives in a SNF -antibiotic coverage to include atypicals and gram negatives. Convert Zosyn and doxycycline to levofloxacin orally for 2 more days to finish 7-day course MRSA swab negative so no need for MRSA coverage She carries a diagnosis of COPD and her aeration is very poor on exam. Was started on steroids and now on prednisone-tapering down Continue bronchodilators. 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 Overnight sleep study positive for being less than 88% on 2 L nasal cannula for greater than 5 minutes AM ABG Will much improved from previous, still abnormal showing chronic CO2 retention at 7.4 0/55/108 on 2 L nasal cannula Case management is working on getting her a trilogy ventilator for at nighttime for when she leaves the hospital-she has been very compliant with using the BiPAP at night here and tolerates it well (2) Acute metabolic encephalopathy: Plan: 2nd to markedly elevated PaCO2, narcotics, pneumonia, etc.-now significantly improved after being on BiPAP Checked ammonia - normal. CT head at admission negative. Continue BIPAP for hypercapnia at bedtime now and with naps during the day Continue abx for pneumonia. (3) Multifocal pneumonia: Plan: Repeat COVID test negative. RSV/flu test negative. Repeat cxr again confirms b/l pneumonia. Continue antibiotics (4) Opiate overdose: Plan: It is unclear if she truly had a large quantity of opiates all at once leading to a typical overdose. The PDMP shows she has NOT had any oxycodone prescribed/refilled since October 2020 but the MAR from [facility] continues to show oxycodone prn. I am most concerned that due to her morbid obesity she will build-up large levels of fentanyl with ongoing use. Oxycodone usage on top of fentanyl will certainly compound this issue. All opiates are on hold and she actually has no significant c/o pain Fortunately, she is not having any opioid withdrawal symptoms either if needed, would only give lower doses of hydrocodone/APAP or another non-opioid analgesic (5) Elevated troponin: Plan: myocardial demand ischemia in the setting of #1 and #3 no evidence of ACS echo with normal LV wall motion (6) Demand ischemia of myocardium: Plan: As above (7) Chronic prescription opiate use: Plan: as above HOLD and would not recommend restarting these (8) Atrial fibrillation: Plan: permanent on coumadin rates controlled here continue metoprolol INR peaked at 5.6, no evidence of bleeding but does have a lot of bruising around the right shoulder-but with concern for further rise in INR given she is on corticosteroids--> gave Vitamin K 1 mg po x 1 on 09/30 INR now down to 1.6 Start bridging Lovenox 1 mg/KG twice daily until INR therapeutic Continue coumadin at home dosing of 3 mg daily-repeat INR again in am (9) COPD (chronic obstructive pulmonary disease): Plan: she is not on bronchodilator therapy at the SNF [id number], given how sick she is, continue with steroids in the event there is any bronchitis/bronchospastic component to her illness (10) GERD (gastroesophageal reflux disease): Plan: Continue Pepcid (11) History of DVT (deep vein thrombosis): Plan: noted on coumadin for such + a.fib Bridging with Lovenox until INR therapeutic (12) Hypertension: Plan: BPs somewhat elevated Continue metoprolol, furosemide at current doses (13) Morbid obesity with BMI of 45.0-49.9, adult: Plan: BMI 46.7 needs weight loss (14) DVT prophylaxis: Plan: coumadin Plan: Disposition-continued stay on medical/surgical floor, likely will be able to return to [facility] facility tomorrow-discussed with case management Admission and Anticipated Discharge Date Admission Date: September 28, 2021 Subjective Patient was sleeping when I saw her but woke up quickly. She reports feeling fairly well today. She is eating and drinking. She does not have pain. Plans are in place to get her BiPAP set up at the [facility] facility and she could likely go there tomorrow. Review of Systems Review of Systems: All systems reviewed & are unremarkable except as noted in HPI & below Physical Exam Constitutional: WD/WN, vitals as above + morbidly obese Eyes: + anicteric sclerae Neck: trachea midline, no thyromegaly Respiratory: normal respiratory effort, lungs clear to auscultation Cardiovascular: Rate/Rhythm: regular rate and + irregularly irregular Heart Sounds: no murmur Extremities: + edema (4+ pitting edema to the thighs bilaterally) Chest (Breasts): Chest: normal inspection of chest Gastrointestinal (Abdomen): normal bowel sounds, soft, nontender, no hepatosplenomegaly Musculoskeletal: Extremities: + extremities abnormal to inspection (Bruising on right shoulder), no cyanosis and no clubbing Skin: no rashes, warm and dry Neurologic: moves all extremities and awake; no focal motor deficits Psychiatric: Orientation: alert, oriented to person, oriented to place and cooperative Results & Data Results & Data ([facility]) Vital Signs (Past 12 Hours) Vital Signs Temp Pulse Resp BP BP Pulse Ox 10/02/21 15:07 36.3 C L 58 L 16 169/85 H 94 10/02/21 10:08 36.4 C L 83 20 151/116 H 97 Laboratory Results 10/02/21 10/02/21 10/02/21 Range/Units 06:03 05:50 05:50 WBC 6.81 (4.8-10.8) K/uL RBC 3.91 L (4.2-5.4) M/uL Hgb 11.7 L (12.0-16.0) g/dL Hct 39.6 (37-47) % MCV 101.3 H (80-100) fL MCH 29.9 (25-34) pg MCHC 29.5 L (32-36) g/dL RDW Std Deviation 62.7 H (36.4-46.3) fL RDW Coeff of Tatyana 17.0 H (11.5-14.5) % Plt Count 186 (130-400) K/uL MPV 10.0 (7.4-10.4) fL Immature Gran % (Auto) 1.5 % Neut % (Auto) 75.0 % Lymph % (Auto) 19.4 % [place] % (Auto) 4.1 % Eos % (Auto) 0.0 % Baso % (Auto) 0.0 % Neut # (Auto) 5.11 (1.4-6.5) K/uL Lymph # (Auto) 1.32 (1.2-3.4) K/uL [place] # (Auto) 0.28 (0.11-0.59) K/uL Eos # (Auto) 0.00 (0-0.5) K/uL Baso # (Auto) 0.00 (0-0.2) K/uL Immature Gran # (Auto) 0.10 H (0.00-0.02) K/uL PT (9.0-12.0) Seconds INR (0.9-1.1) ABG pH 7.40 (7.35-7.45) ABG pCO2 55 H (35-46) mmHg ABG pO2 108 H (80-95) mmHg ABG HCO3 33 H (19-24) mmol/L ABG O2 Saturation 97.8 H (90-95) % ABG Base Excess 6.5 H (-9-1.8) mEq/L Anthony Test Pos (Pos) Barometric Pressure 741.3 mm/Hg Oxygen Given 2L Sodium 143 (136-145) mmol/L Potassium 3.6 (3.5-5.1) mmol/L Chloride 103 (98-107) mmol/L Carbon Dioxide 35 H (21-32) mmol/L Anion Gap 5 (3-11) BUN 30 H (6-23) mg/dl Creatinine 0.95 (0.6-1.2) mg/dl Est Cr Clr Drug Dosing 77.8 ml/min Est GFR ( Amer) 67.9 ml/min Est GFR (Non-Af Amer) 58.6 ml/min BUN/Creatinine Ratio 31.6 H (10-20) Glucose 160 H (70-99(Fasting)) mg/dl Calcium 8.1 L (8.5-10.1) mg/dl Magnesium 2.0 (1.7-2.4) mg/dl 10/02/21 Range/Units 05:50 WBC (4.8-10.8) K/uL RBC (4.2-5.4) M/uL Hgb (12.0-16.0) g/dL Hct (37-47) % MCV (80-100) fL MCH (25-34) pg MCHC (32-36) g/dL RDW Std Deviation (36.4-46.3) fL RDW Coeff of Tatyana (11.5-14.5) % Plt Count (130-400) K/uL MPV (7.4-10.4) fL Immature Gran % (Auto) % Neut % (Auto) % Lymph % (Auto) % [place] % (Auto) % Eos % (Auto) % Baso % (Auto) % Neut # (Auto) (1.4-6.5) K/uL Lymph # (Auto) (1.2-3.4) K/uL [place] # (Auto) (0.11-0.59) K/uL Eos # (Auto) (0-0.5) K/uL Baso # (Auto) (0-0.2) K/uL Immature Gran # (Auto) (0.00-0.02) K/uL PT 16.6 H (9.0-12.0) Seconds INR 1.6 H (0.9-1.1) ABG pH (7.35-7.45) ABG pCO2 (35-46) mmHg ABG pO2 (80-95) mmHg ABG HCO3 (19-24) mmol/L ABG O2 Saturation (90-95) % ABG Base Excess (-9-1.8) mEq/L Anthony Test (Pos) Barometric Pressure mm/Hg Oxygen Given Sodium (136-145) mmol/L Potassium (3.5-5.1) mmol/L Chloride (98-107) mmol/L Carbon Dioxide (21-32) mmol/L Anion Gap (3-11) BUN (6-23) mg/dl Creatinine (0.6-1.2) mg/dl Est Cr Clr Drug Dosing ml/min Est GFR ( Amer) ml/min Est GFR (Non-Af Amer) ml/min BUN/Creatinine Ratio (10-20) Glucose (70-99(Fasting)) mg/dl Calcium (8.5-10.1) mg/dl Magnesium (1.7-2.4) mg/dl PG Care Time/CCT Total # of Minutes Spent Total Time Spent with Patient: Total time spent is greater than 50% in coordination of care (as documented) at patient's floor/unit and/or counseling patient: Coding Level of Care Code 71323 Subseq Hosp Care Lvl 2 Diagnoses Acute on chronic respiratory failure with hypoxia and hypercapnia J96.21; J96.22 Acute metabolic encephalopathy G93.41 Multifocal pneumonia J18.9 Opiate overdose T40.601A Encounter type: initial encounter Injury intent: accidental or unintentional Elevated troponin R77.8 Demand ischemia of myocardium I24.8 Chronic prescription opiate use Z79.891 Atrial fibrillation I48.91 COPD (chronic obstructive pulmonary disease) J44.9 GERD (gastroesophageal reflux disease) K21.9 History of DVT (deep vein thrombosis) Z86.718 Hypertension I10 Morbid obesity with BMI of 45.0-49.9, adult E66.01; Z68.42 DVT prophylaxis Z29.9 (1) Opiate overdose Encounter type: initial encounter Injury intent: accidental or unintentional Qualified Code(s): T40.601A - Poisoning by unspecified narcotics, accidental (unintentional), initial encounter
[2021-10-02] MEDS: levoFLOXacin 750 MG TAB PO SCH (18:11)
[2021-10-03] MEDS: ARTIFICIAL TEARS OP SCH ×3 (00:40→17:32)
[2021-10-03 06:28] LABS: Prothrombin Time 20.3 Seconds (9.0-12.0)
[2021-10-03 06:35] LABS: Eosinophils # (auto) 0.01 K/uL (0-0.5); Eosinophils % (auto) 0.1 %; Hematocrit (blood only) 40.3 % (37-47); Hemoglobin 12.1 g/dL (12.0-16.0); Immature Granulocytes # (auto) 0.07 K/uL (0.00-0.02); Immature Granulocytes % (auto) 0.9 %; Lymphocytes # (auto) 1.81 K/uL (1.2-3.4); Lymphocytes % (auto) 23.1 %; Mean Corpuscular Hemoglobin 30.3 pg (25-34); Mean Corpuscular Volume 100.8 fL (80-100); Mean Platelet Volume 10.2 fL (7.4-10.4); Monocytes # (auto) 0.99 K/uL (0.11-0.59); Monocytes % (auto) 12.6 %; Neutrophils # (auto) 4.95 K/uL (1.4-6.5); Neutrophils % (auto) 63.3 %; Platelet Count 194 K/uL (130-400); RDW Coefficient of Variation 16.7 % (11.5-14.5); White Blood Count 7.83 K/uL (4.8-10.8)
[2021-10-03 06:41] LABS: Albumin Globulin Ratio 1.3 (0.9-2); Albumin Level 3.2 gm/dl (3.4-5.0); BUN Creatinine Ratio 32.6 (10-20); Bilirubin,Total 0.6 mg/dl (0.2-1.0); Calcium 8.4 mg/dl (8.5-10.1); Creatinine Clr Calc Pharmacy 79.5 ml/min; Est GFR (African American) 70.6 ml/min; Est GFR (Non-African American) 60.9 ml/min; Globulin 2.5 gm/dl (2.5-4.0); Potassium 3.5 mmol/L (3.5-5.1); Total Protein 5.7 gm/dl (6.0-8.3)
[2021-10-03] MEDS: FAMOTIDINE 20 MG TAB PO SCH ×2 (10:47→21:07)
[2021-10-03] MEDS: CYANOCOBALAMIN (B-12) 500 MCG TABLET PO SCH (10:47)
[2021-10-03] MEDS: FERROUS SULFATE 325 MG TAB PO SCH (10:47)
[2021-10-03] MEDS: GABAPENTIN 400 MG CAP PO SCH ×3 (10:48→21:07)
[2021-10-03] MEDS: LORATADINE 10 MG TAB PO SCH (10:48)
[2021-10-03] MEDS: FOLIC ACID 1 MG TAB PO SCH (10:48)
[2021-10-03] MEDS: FUROSEMIDE 40 MG TAB PO SCH (10:48)
[2021-10-03] MEDS: OXYBUTYNIN CHLORIDE XL 5 MG TABCR PO SCH (10:48)
[2021-10-03] MEDS: METOPROLOL TARTRATE 25 MG TAB PO SCH ×2 (10:48→21:07)
[2021-10-03] MEDS: MULTIVITAMIN TAB PO SCH (10:48)
[2021-10-03] MEDS: PANTOprazole 40 MG TAB PO SCH ×2 (10:49→21:07)
[2021-10-03] MEDS: predniSONE 20 MG TAB PO SCH (10:49)
[2021-10-03] MEDS: POLYETHYLENE (MIRALAX) 17 GM PACK PO SCH (10:49)
--- NOTE | 2021-10-03 14:37 | Hospitalist Progress Note ---
Date of Service October 03, 2021 Assessment & Plan (1) Acute on chronic respiratory failure with hypoxia and hypercapnia: Plan: Acute component is 2nd to CO2 narcosis in the setting of b/l pneumonia and chronic opiate usage. All opiates including fentanyl patches and oxycodone have been HELD and she is now much improved BIPAP was required for 24 hours from 09/28 to the morning of 09/29 and is now weaned off to nasal cannula as her mentation and CO2 levels improved Initial VBG with markedly elevated pCO2 of >100. following BIPAP 24/11 her pH and pCO2 did improve. Now weaned down to 2 L nasal cannula for oxygen-I do not believe she is on oxygen at baseline Mentation now much improved For suspected pneumonia - since she lives in a SNF -antibiotic coverage to include atypicals and gram negatives. Convert Zosyn and doxycycline to levofloxacin orally for 1 more day to finish 7- day course MRSA swab negative so no need for MRSA coverage She carries a diagnosis of COPD and her aeration is very poor on exam. Was started on steroids and now on prednisone-tapering down to 30 mg for tomorrow Continue bronchodilators. 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 Overnight sleep study positive for being less than 88% on 2 L nasal cannula for greater than 5 minutes AM ABG Will much improved from previous, still abnormal showing chronic CO2 retention at 7.4 0/55/108 on 2 L nasal cannula Case management is working on getting her a trilogy ventilator for at nighttime for when she leaves the hospital-she has been very compliant with using the BiPAP at night here and tolerates it well (2) Acute metabolic encephalopathy: Plan: 2nd to markedly elevated PaCO2, narcotics, pneumonia, etc.-now significantly improved after being on BiPAP Checked ammonia - normal. CT head at admission negative. Continue BIPAP for hypercapnia at bedtime now and with naps during the day Continue abx for pneumonia. (3) Multifocal pneumonia: Plan: Repeat COVID test negative. RSV/flu test negative. Repeat cxr again confirms b/l pneumonia. Continue antibiotics as above Blood cultures remain no growth (4) Opiate overdose: Plan: It is unclear if she truly had a large quantity of opiates all at once leading to a typical overdose. The PDMP shows she has NOT had any oxycodone prescribed/refilled since October 2020 but the MAR from [facility] continues to show oxycodone prn. I am most concerned that due to her morbid obesity she will build-up large levels of fentanyl with ongoing use. Oxycodone usage on top of fentanyl will certainly compound this issue. All opiates are on hold and she actually has no significant c/o pain Fortunately, she is not having any opioid withdrawal symptoms either if needed, would only give lower doses of hydrocodone/APAP or another non-opioid analgesic (5) Elevated troponin: Plan: myocardial demand ischemia in the setting of #1 and #3 no evidence of ACS echo with normal LV wall motion (6) Demand ischemia of myocardium: Plan: As above (7) Chronic prescription opiate use: Plan: as above HOLD and would not recommend restarting these (8) Atrial fibrillation: Plan: permanent on coumadin rates controlled here continue metoprolol INR peaked at 5.6, no evidence of bleeding but does have a lot of bruising around the right shoulder-but with concern for further rise in INR given she is on corticosteroids--> gave Vitamin K 1 mg po x 1 on 09/30 INR now 2.0 Can now discontinue bridging Lovenox 1 mg/KG twice daily as INR therapeutic Continue coumadin at home dosing of 3 mg daily-repeat INR again in am (9) COPD (chronic obstructive pulmonary disease): Plan: she is not on bronchodilator therapy at the SNF [id number], given how sick she is, continue with steroids in the event there is any bronchitis/bronchospastic component to her illness (10) GERD (gastroesophageal reflux disease): Plan: Continue Pepcid (11) History of DVT (deep vein thrombosis): Plan: noted on coumadin for such + a.fib DC bridging Lovenox as above (12) Hypertension: Plan: BPs somewhat elevated Continue metoprolol, furosemide at current doses (13) Morbid obesity with BMI of 45.0-49.9, adult: Plan: BMI 46.7 needs weight loss (14) DVT prophylaxis: Plan: coumadin Plan: Disposition-medically stable for discharge, but the alf cannot to get her trilogy machine until Tuesday. Plan for discharge on Tuesday to [facility] Admission and Anticipated Discharge Date Admission Date: September 28, 2021 Subjective Patient feels well today, has no complaints. She is tolerating BiPAP well. Plan was for discharge today but the alf could not get the Trilogy in place till Tuesday Review of Systems Review of Systems: All systems reviewed & are unremarkable except as noted in HPI & below Physical Exam Constitutional: WD/WN, vitals as above + morbidly obese Eyes: + anicteric sclerae Neck: trachea midline, no thyromegaly Respiratory: normal respiratory effort, lungs clear to auscultation Cardiovascular: Rate/Rhythm: regular rate and + irregularly irregular Heart Sounds: no murmur Extremities: + edema (4+ pitting edema to the thighs bilaterally) Chest (Breasts): Chest: normal inspection of chest Gastrointestinal (Abdomen): normal bowel sounds, soft, nontender, no hepatosplenomegaly Musculoskeletal: Extremities: + extremities abnormal to inspection (Bruising on right shoulder), no cyanosis and no clubbing Skin: no rashes, warm and dry Neurologic: moves all extremities and awake; no focal motor deficits Psychiatric: Orientation: alert, oriented to person, oriented to place and cooperative Results & Data Results & Data ([facility]) Vital Signs (Past 12 Hours) Vital Signs Temp Pulse Pulse Resp BP Pulse Ox 10/03/21 07:55 36.8 C 68 18 150/82 H 100 10/03/21 02:45 69 20 97 Laboratory Results 10/03/21 10/03/21 10/03/21 Range/Units 05:30 05:30 05:30 WBC 7.83 (4.8-10.8) K/uL RBC 4.00 L (4.2-5.4) M/uL Hgb 12.1 (12.0-16.0) g/dL Hct 40.3 (37-47) % MCV 100.8 H (80-100) fL MCH 30.3 (25-34) pg MCHC 30.0 L (32-36) g/dL RDW Std Deviation 62.0 H (36.4-46.3) fL RDW Coeff of Tatyana 16.7 H (11.5-14.5) % Plt Count 194 (130-400) K/uL MPV 10.2 (7.4-10.4) fL Immature Gran % (Auto) 0.9 % Neut % (Auto) 63.3 % Lymph % (Auto) 23.1 % [place] % (Auto) 12.6 % Eos % (Auto) 0.1 % Baso % (Auto) 0.0 % Neut # (Auto) 4.95 (1.4-6.5) K/uL Lymph # (Auto) 1.81 (1.2-3.4) K/uL [place] # (Auto) 0.99 H (0.11-0.59) K/uL Eos # (Auto) 0.01 (0-0.5) K/uL Baso # (Auto) 0.00 (0-0.2) K/uL Immature Gran # (Auto) 0.07 H (0.00-0.02) K/uL PT 20.3 H (9.0-12.0) Seconds INR 2.0 H (0.9-1.1) Sodium 144 (136-145) mmol/L Potassium 3.5 (3.5-5.1) mmol/L Chloride 103 (98-107) mmol/L Carbon Dioxide 35 H (21-32) mmol/L Anion Gap 6 (3-11) BUN 30 H (6-23) mg/dl Creatinine 0.92 (0.6-1.2) mg/dl Est Cr Clr Drug Dosing 79.5 ml/min Est GFR ( Amer) 70.6 ml/min Est GFR (Non-Af Amer) 60.9 ml/min BUN/Creatinine Ratio 32.6 H (10-20) Glucose 106 H (70-99(Fasting)) mg/dl Calcium 8.4 L (8.5-10.1) mg/dl Total Bilirubin 0.6 (0.2-1.0) mg/dl AST 9 L (13-39) U/L ALT 11 (7-52) U/L Alkaline Phosphatase 58 (34-104) U/L Total Protein 5.7 L (6.0-8.3) gm/dl Albumin 3.2 L (3.4-5.0) gm/dl Globulin 2.5 (2.5-4.0) gm/dl Albumin/Globulin Ratio 1.3 (0.9-2) PG Care Time/CCT Total # of Minutes Spent Total Time Spent with Patient: Total time spent is greater than 50% in coordination of care (as documented) at patient's floor/unit and/or counseling patient: Coding Level of Care Code 68284 Subseq Hosp Care Lvl 2 Diagnoses Acute on chronic respiratory failure with hypoxia and hypercapnia J96.21; J96.22 Acute metabolic encephalopathy G93.41 Multifocal pneumonia J18.9 Opiate overdose T40.601A Encounter type: initial encounter Injury intent: accidental or unintentional Elevated troponin R77.8 Demand ischemia of myocardium I24.8 Chronic prescription opiate use Z79.891 Atrial fibrillation I48.91 COPD (chronic obstructive pulmonary disease) J44.9 GERD (gastroesophageal reflux disease) K21.9 History of DVT (deep vein thrombosis) Z86.718 Hypertension I10 Morbid obesity with BMI of 45.0-49.9, adult E66.01; Z68.42 DVT prophylaxis Z29.9 (1) Opiate overdose Encounter type: initial encounter Injury intent: accidental or unintentional Qualified Code(s): T40.601A - Poisoning by unspecified narcotics, accidental (unintentional), initial encounter
[2021-10-03] MEDS: WARFARIN SOD 3 MG TAB PO SCH (17:31)
[2021-10-03] MEDS: levoFLOXacin 750 MG TAB PO SCH (17:32)
[2021-10-03] MEDS: ACETAMINOPHEN 325 MG TAB PO PRN (21:06)
[2021-10-03] MEDS ORDERED: ACETAMINOPHEN 325 MG TAB PO STA (23:21)
[2021-10-03] MEDS ORDERED: KETOROLAC TROMETHAMINE 15 MG/ML VIAL IV ONE (23:24)
[2021-10-03 23:55] VITALS: TEMP 98.2
[2021-10-04] MEDS: ARTIFICIAL TEARS OP SCH ×4 (01:16→23:16)
[2021-10-04] MEDS ORDERED: HYDROcodone/ACETAMINOPHEN 10/325 TAB PO STA (01:57)
[2021-10-04] MEDS ORDERED: OPTIRAY 320 125ml IV ONE (02:46)
--- NOTE | 2021-10-04 03:19 | Communication Note ---
Date of Service: October 04, 2021 Informed by patient's nurse earlier in the evening that patient was complaining of left foot pain. No reported falls, injuries, accidental trauma during her stay. Has been noted to have symmetric 4+ pitting edema in the LE bilaterally consistently. Pain seems to have evolved throughout the evening, but was somewhat spontaneous. She describes it as within her ankle, extending medially to laterally. It is constant in nature. It is not relieved by any certain positions. At the bedside, patient was found to be in moderate distress secondary to pain. Visual examination of the right and left lower extremities does reveal some erythema over the left anterior bridges. There is also bruising appreciated over the L lateral ankle -- chronicity unknown. There is appreciable edema in both lower extremities bilaterally, appearing symmetric on both sides. The skin on the left lower extremity is appropriately warm to the touch. There is significant tenderness to palpation over the anterior ankle, particularly over the edematous/adipose fold.Compared to the right side, ankle dorsiflexion and plantarflexion is equal; both sides are 4/5. Sensation to light touch is grossly intact. Capillary refill 2 seconds. Due to profound edema around the foot and ankle, unable to palpate pulses. Attempted bedside Doppler for pulses; results inconclusive with habitus. Etiology of this pain is unclear. With the bruising appreciated on the lateral aspect of the ankle, do wonder about formation of a spontaneous hematoma. There is no clear precipitating event that would explain a fracture, but it is on the differential. DVT seems less likely based on location, and the fact that patient is appropriately anticoagulated with INR 2 in the AM labs. Cellu litis/osteo seems less likely but considered. Appreciable edema is likely contributing to the overall picture. No e/o compartment syndrome presently. X-rays were obtained initially, which are awaiting read; there is no clear evidence of fracture that I could identify in the identified painful area, though degenerative changes were noted. Patient given Tylenol and Toradol x 1 without much relief, and then hydrocodone, as recommended by day team notes. Ice was also applied and foot was elevated. Despite these maneuvers, pain persisted and was still reported to be quite intense. Given unclear etiology and significant, and somewhat spontaneous, pain, will obtain CT of the foot. If unremarkable and pain is persistent/severe, could also consider duplex venous/arterial imaging. In close communication with patient's RN. Resident Activity Tracking Resident Involvement: Resident Care Provided Care Provided: Adult Hospital Medicine
[2021-10-04] MEDS ORDERED: HYDROmorphone INJ 0.5 MG/0.5 ML SYR IV STA (04:37)
[2021-10-04] MEDS ORDERED: PHYTONADIONE 5 MG TAB PO STA ×2 (04:37→12:33)
[2021-10-04 06:23] LABS: INR 2.2 (0.9-1.1)
[2021-10-04 06:29] LABS: Eosinophils # (auto) 0.01 K/uL (0-0.5); Eosinophils % (auto) 0.1 %; Hematocrit (blood only) 36.7 % (37-47); Hemoglobin 11.5 g/dL (12.0-16.0); Immature Granulocytes # (auto) 0.07 K/uL (0.00-0.02); Immature Granulocytes % (auto) 0.8 %; Lymphocytes # (auto) 1.97 K/uL (1.2-3.4); Lymphocytes % (auto) 21.9 %; Mean Corpuscular Hemoglobin 30.8 pg (25-34); Mean Corpuscular Hgb Conc 31.3 g/dL (32-36); Mean Corpuscular Volume 98.4 fL (80-100); Mean Platelet Volume 9.9 fL (7.4-10.4); Monocytes # (auto) 0.85 K/uL (0.11-0.59); Monocytes % (auto) 9.4 %; Neutrophils # (auto) 6.11 K/uL (1.4-6.5); Neutrophils % (auto) 67.8 %; Platelet Count 182 K/uL (130-400); RDW Coefficient of Variation 16.7 % (11.5-14.5); Red Blood Count 3.73 M/uL (4.2-5.4); White Blood Count 9.01 K/uL (4.8-10.8)
[2021-10-04 06:40] LABS: BUN Creatinine Ratio 36.4 (10-20); Calcium 8.1 mg/dl (8.5-10.1); Creatinine Clr Calc Pharmacy 81.8 ml/min; Est GFR (African American) 74.5 ml/min; Est GFR (Non-African American) 64.3 ml/min; Potassium 3.4 mmol/L (3.5-5.1)
--- NOTE | 2021-10-04 08:23 | CT Scan Report ---
CT OF THE LEFT FOOT WITH CONTRAST CLINICAL HISTORY: significant left foot pain, edematous, bruising COMPARISON STUDY: Left foot radiographs October 04, 2021 at 12:43 AM. TECHNIQUE: Axial images of the left foot were obtained following intravenous injection of 120 cc of O ptiray 320 IV. Sagittal and coronal reconstructions were viewed. Automated exposure control was utili Samanage for the study. A dose lowering technique was utilized adhering to the principles of ALARA. FINDINGS: No acute fracture within the left foot or ankle is identified although sensitivity is dimin ished given motion artifact and severe osteopenia. Mild cortical irregularity within the bases of sev eral metatarsals. This is likely chronic. No definite acute fracture. Extensive vascular calcificatio n is noted. There is soft tissue swelling of the left lower leg, ankle and foot. Note is made of a pa rtially visualized fluid collection along anterior aspect of the distal left tibia and fibula which m easures approximately 7.5 x 7.2 x 3.6 cm. This collection has two components which likely communicate and a fluid fluid level consistent with a hematoma with layering hyperdense material. Also contains 2 foci of contrast material suggestive of active extravasation. No additional hematomas are identifie d within the left foot or ankle. No suspicious osseous lesions are present. There is no CT evidence f or acute osteomyelitis. IMPRESSION: 1. 7.5 x 7.2 x 3.6 cm fluid collection along the anterior aspect of the distal left tibia and fibula. This contains a fluid fluid level with layering hyperdense material consistent with a hematoma. Two suspected foci of active extravasation consistent with active bleeding. This finding will be called/f axed to ordering provider at time of dictation. 2. Cortical irregularity of the bases of several metatarsals. This is likely chronic. No definite acu te fracture although sensitivity diminished given motion artifact and severe osteopenia. ACT 112: Negative or not required by law. Electronically signed by: Dharmesh Booth M.D. 10/04/2021 8:21 AM
[2021-10-04] MEDS ORDERED: POTASSIUM CHLORIDE CRTAB 20 MEQ TABCR PO STA (08:30)
--- NOTE | 2021-10-04 08:49 | XRay Report ---
XR foot LT 2V CLINICAL HISTORY: acute onset L foot pain in setting of 4+ edema COMPARISON: None FINDINGS: Severe osteopenia is noted. Extensive soft tissue swelling of the left lower leg, ankle an d dorsal foot. A fluid collection anterior to the distal left tibia and fibula measures approximately 6.4 x 3.5 cm. This is better depicted on subsequent CT. Extensive vascular calcification is noted. N o acute fracture is identified although sensitivity is diminished given severe osteopenia. IMPRESSION: 1. Extensive soft tissue swelling left lower leg, ankle and dorsal foot. 2. Fluid collection anterior to the distal left tibia and fibula which measures approximately 6.4 x 3 .5 cm. This is better depicted on subsequent CT. Please see that report for further description. 3. No acute fracture identified although sensitivity diminished given severe osteopenia. ACT 112: Negative or not required by law. Electronically signed by: Dharmesh Booth M.D. 10/04/2021 8:48 AM
[2021-10-04] MEDS ORDERED: predniSONE 10 MG TABLET PO SCH (09:00)
[2021-10-04 09:13] LABS: Hematocrit (blood only) 35.8 % (37-47); Hemoglobin 10.8 g/dL (12.0-16.0)
[2021-10-04] MEDS: LORATADINE 10 MG TAB PO SCH (09:48)
[2021-10-04] MEDS: GABAPENTIN 400 MG CAP PO SCH ×3 (09:49→20:20)
[2021-10-04] MEDS: MULTIVITAMIN TAB PO SCH (09:49)
[2021-10-04] MEDS: FAMOTIDINE 20 MG TAB PO SCH ×2 (09:49→20:19)
[2021-10-04] MEDS: FUROSEMIDE 40 MG TAB PO SCH (09:50)
[2021-10-04] MEDS: FOLIC ACID 1 MG TAB PO SCH (09:50)
[2021-10-04] MEDS: CYANOCOBALAMIN (B-12) 500 MCG TABLET PO SCH (09:50)
[2021-10-04] MEDS: FERROUS SULFATE 325 MG TAB PO SCH (09:50)
[2021-10-04] MEDS: OXYBUTYNIN CHLORIDE XL 5 MG TABCR PO SCH (09:50)
[2021-10-04] MEDS: POLYETHYLENE (MIRALAX) 17 GM PACK PO SCH (09:52)
[2021-10-04] MEDS: METOPROLOL TARTRATE 25 MG TAB PO SCH ×2 (09:52→20:20)
[2021-10-04] MEDS: PANTOprazole 40 MG TAB PO SCH ×2 (09:52→20:20)
--- NOTE | 2021-10-04 12:13 | Hospitalist Progress Note ---
Date of Service October 04, 2021 Assessment & Plan (1) Acute on chronic respiratory failure with hypoxia and hypercapnia: Plan: Acute component is 2nd to CO2 narcosis in the setting of b/l pneumonia and chronic opiate usage. All opiates including fentanyl patches and oxycodone have been HELD and she is now much improved BIPAP was required for 24 hours from 09/28 to the morning of 09/29 and is now weaned off to nasal cannula as her mentation and CO2 levels improved Initial VBG with markedly elevated pCO2 of >100. following BIPAP 24/11 her pH and pCO2 did improve. Now weaned down to 2 L nasal cannula for oxygen-I do not believe she is on oxygen at baseline Mentation now much improved For suspected pneumonia - since she lives in a SNF -antibiotic coverage to include atypicals and gram negatives was provided She was initially treated with Zosyn and doxycycline x4 days and converted to levofloxacin orally to finish 7-day course-last day of treatment was 10/04 MRSA swab negative so no need for MRSA coverage She carries a diagnosis of COPD and her aeration is very poor on exam. Was started on steroids and now on prednisone-tapering down to 20 mg for tomorrow Continue bronchodilators. 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 Overnight sleep study positive w/ POx < 88% on 2 L nasal cannula for > 5 minutes AM ABG while much improved from previous, still abnormal showing chronic CO2 retention at 7.4 0/55/108 on 2 L nasal cannula Case management is working on getting her a trilogy ventilator for at nighttime for when she leaves the hospital-she has been very compliant with using the BiPAP at night here and tolerates it well (2) Acute metabolic encephalopathy: Plan: 2nd to markedly elevated PaCO2, narcotics, pneumonia, etc.-now resolved after being on BiPAP Checked ammonia - normal. CT head at admission negative. Continue BIPAP for hypercapnia at bedtime now and with naps during the day Treated with abx for pneumonia. (3) Hematoma: Plan: Developed a spontaneous hematoma of the anterior distal leg and ankle overnight on 10/03 She is on Coumadin and her INR was therapeutic. She had been doing some ankle PT exercises in the bed that day but otherwise no known trauma. This caused severe pain and some mild acute blood loss anemia with hemoglobin dropped to 10.8, but remained hemodynamically stable Pain is now much better controlled after 1 dose of IV Dilaudid -Consulted general surgery-they recommended either IR intervention for active extravasation versus orthopedic surgery consultation to evaluate for compartment syndrome -Doubt compartment syndrome at this point although she does have chronic neuropathy so sensation difficult to tell-difficult to palpate pulses because of significant edema, but pain is now much improved -Consult orthopedic surgery-they will see her tomorrow -Make n.p.o. after midnight tonight in case of need for hematoma evacuation on 10/05 (4) Multifocal pneumonia: Plan: COVID/RSV/flu test negative. Repeat cxr again confirms b/l pneumonia. Completed 7-day course of antibiotics as above Blood cultures remain no growth -Would follow chest x-ray to resolution as an outpatient in 4-6 weeks (5) Opiate overdose: Plan: It is unclear if she truly had a large quantity of opiates all at once leading to a typical overdose on admission The PDMP shows she has NOT had any oxycodone prescribed/refilled since October 2020 but the MAR from [facility] continues to show oxycodone prn. I am most concerned that due to her morbid obesity she will build-up large levels of fentanyl with ongoing use. Oxycodone usage on top of fentanyl will certainly compound this issue. All opiates have been discontinued this entire hospital stay and she actually has no significant c/o pain (except for acute hematoma of the ankle as above) Fortunately, she is not having any opioid withdrawal symptoms either if needed, would only give lower doses of hydrocodone/APAP or another non-opioid analgesic if absolutely necessary for her chronic arthritis pain in the future (6) Elevated troponin: Plan: myocardial demand ischemia in the setting of acute respiratory failure and pneumonia no evidence of ACS echo with normal LV wall motion (7) Chronic prescription opiate use: Plan: as above Discontinued all chronic opioids (8) Atrial fibrillation: Plan: permanent on coumadin rates controlled here continue metoprolol INR peaked at 5.6, no evidence of bleeding except some bruising on the right shoulder at that point --> gave Vitamin K 1 mg po x 1 on 09/30 INR then was subtherapeutic and she received 1 day of bridging Lovenox INR was therapeutic again on 10/04 and Lovenox was discontinued, Coumadin was continued Then developed spontaneous left leg hematoma on 10/03-INR 2.7 at the time Was given vitamin K 2.5 mg p.o. x1 on the night of 10/03 and INR only came down to 2.2 There was a question of active extravasation on the CT of the leg-give another vitamin K 2.5 mg p.o. x1 on 10/04 Follow INR in the morning Continue to hold Coumadin (9) COPD (chronic obstructive pulmonary disease): Plan: she is not on bronchodilator therapy at the SNF Continue prednisone taper and as needed albuterol (10) GERD (gastroesophageal reflux disease): Plan: Continue Pepcid (11) History of DVT (deep vein thrombosis): Plan: noted on coumadin for such + a.fib Now reversing Coumadin and holding Coumadin as above for hematoma (12) Hypertension: Plan: BPs mildly elevated Continue metoprolol, furosemide at current doses (13) Morbid obesity with BMI of 45.0-49.9, adult: Plan: BMI 46.7 needs weight loss (14) DVT prophylaxis: Plan: coumadin now on hold as above Plan: Disposition-was going to be discharged over the weekend but [facility] [place] [facility] trilogy machine until Tuesday, however now with acute hematoma, she is no longer medically stable for discharge on Tuesday. Continued stay now for management of hematoma of the ankle. Eventually, she will return back to her bed hold at [facility] I have been updating her Sister Carmencita by phone almost daily Admission and Anticipated Discharge Date Admission Date: September 28, 2021 Subjective Patient had development of hematoma in the distal left leg and ankle area last evening that caused severe pain. When I saw her, she reported the pain was completely gone and she did not take any more pain medicine all day. She denies any other issues. I discussed her case with general surgeon as well as orthopedic surgeon on-call. Orthopedic surgery said they would see her tomorrow and that no urgent procedure is needed given that her pain was resolved. Review of Systems Review of Systems: All systems reviewed & are unremarkable except as noted in HPI & below Physical Exam Constitutional: WD/WN, vitals as above + morbidly obese Eyes: + anicteric sclerae Neck: trachea midline, no thyromegaly Respiratory: normal respiratory effort, lungs clear to auscultation Cardiovascular: Rate/Rhythm: regular rate and + irregularly irregular Heart Sounds: no murmur Extremities: + edema (4+ pitting edema to the thighs bilaterally) Chest (Breasts): Chest: normal inspection of chest Gastrointestinal (Abdomen): normal bowel sounds, soft, nontender, no hepatosplenomegaly Musculoskeletal: Extremities: + extremities abnormal to inspection (Bruising on right shoulder), no cyanosis and no clubbing Left anterior ankle and distal tibia with overlying hematoma approximately 4 to 5 cm in diameter Skin: + erythema (Chronic venous stasis changes with erythema of the legs bilaterally) Neurologic: moves all extremities and awake; no focal motor deficits Psychiatric: Orientation: alert, oriented to person, oriented to place and cooperative Results & Data Results & Data ([facility]) Vital Signs (Past 12 Hours) Vital Signs Temp Pulse Resp BP Pulse Ox 10/04/21 07:03 36.8 C 76 20 155/88 H 92 Laboratory Results 10/04/21 10/04/21 10/04/21 Range/Units 08:56 05:19 05:19 WBC (4.8-10.8) K/uL RBC (4.2-5.4) M/uL Hgb 10.8 L (12.0-16.0) g/dL Hct 35.8 L (37-47) % MCV (80-100) fL MCH (25-34) pg MCHC (32-36) g/dL RDW Std Deviation (36.4-46.3) fL RDW Coeff of Tatyana (11.5-14.5) % Plt Count (130-400) K/uL MPV (7.4-10.4) fL Immature Gran % (Auto) % Neut % (Auto) % Lymph % (Auto) % [place] % (Auto) % Eos % (Auto) % Baso % (Auto) % Neut # (Auto) (1.4-6.5) K/uL Lymph # (Auto) (1.2-3.4) K/uL [place] # (Auto) (0.11-0.59) K/uL Eos # (Auto) (0-0.5) K/uL Baso # (Auto) (0-0.2) K/uL Immature Gran # (Auto) (0.00-0.02) K/uL PT 22.0 H (9.0-12.0) Seconds INR 2.2 H (0.9-1.1) Sodium 144 (136-145) mmol/L Potassium 3.4 L (3.5-5.1) mmol/L Chloride 103 (98-107) mmol/L Carbon Dioxide 34 H (21-32) mmol/L Anion Gap 7 (3-11) BUN 32 H (6-23) mg/dl Creatinine 0.88 (0.6-1.2) mg/dl Est Cr Clr Drug Dosing 81.8 ml/min Est GFR ( Amer) 74.5 ml/min Est GFR (Non-Af Amer) 64.3 ml/min BUN/Creatinine Ratio 36.4 H (10-20) Glucose 110 H (70-99(Fasting)) mg/dl Calcium 8.1 L (8.5-10.1) mg/dl 10/04/21 Range/Units 05:19 WBC 9.01 (4.8-10.8) K/uL RBC 3.73 L (4.2-5.4) M/uL Hgb 11.5 L (12.0-16.0) g/dL Hct 36.7 L (37-47) % MCV 98.4 (80-100) fL MCH 30.8 (25-34) pg MCHC 31.3 L (32-36) g/dL RDW Std Deviation 60.0 H (36.4-46.3) fL RDW Coeff of Tatyana 16.7 H (11.5-14.5) % Plt Count 182 (130-400) K/uL MPV 9.9 (7.4-10.4) fL Immature Gran % (Auto) 0.8 % Neut % (Auto) 67.8 % Lymph % (Auto) 21.9 % [place] % (Auto) 9.4 % Eos % (Auto) 0.1 % Baso % (Auto) 0.0 % Neut # (Auto) 6.11 (1.4-6.5) K/uL Lymph # (Auto) 1.97 (1.2-3.4) K/uL [place] # (Auto) 0.85 H (0.11-0.59) K/uL Eos # (Auto) 0.01 (0-0.5) K/uL Baso # (Auto) 0.00 (0-0.2) K/uL Immature Gran # (Auto) 0.07 H (0.00-0.02) K/uL PT (9.0-12.0) Seconds INR (0.9-1.1) Sodium (136-145) mmol/L Potassium (3.5-5.1) mmol/L Chloride (98-107) mmol/L Carbon Dioxide (21-32) mmol/L Anion Gap (3-11) BUN (6-23) mg/dl Creatinine (0.6-1.2) mg/dl Est Cr Clr Drug Dosing ml/min Est GFR ( Amer) ml/min Est GFR (Non-Af Amer) ml/min BUN/Creatinine Ratio (10-20) Glucose (70-99(Fasting)) mg/dl Calcium (8.5-10.1) mg/dl PG Care Time/CCT Total # of Minutes Spent Total Time Spent with Patient: Total time spent is greater than 50% in coordination of care (as documented) at patient's floor/unit and/or counseling patient: Coding Level of Care Code 97914 Subseq Hosp Care Lvl 3 Diagnoses Acute on chronic respiratory failure with hypoxia and hypercapnia J96.21; J96.22 Acute metabolic encephalopathy G93.41 Multifocal pneumonia J18.9 Opiate overdose T40.601A Encounter type: initial encounter Injury intent: accidental or unintentional Elevated troponin R77.8 Chronic prescription opiate use Z79.891 Atrial fibrillation I48.91 COPD (chronic obstructive pulmonary disease) J44.9 GERD (gastroesophageal reflux disease) K21.9 History of DVT (deep vein thrombosis) Z86.718 Hypertension I10 Morbid obesity with BMI of 45.0-49.9, adult E66.01; Z68.42 DVT prophylaxis Z29.9 Hematoma T14.8XXA (1) Opiate overdose Encounter type: initial encounter Injury intent: accidental or unintentional Qualified Code(s): T40.601A - Poisoning by unspecified narcotics, accidental (unintentional), initial encounter
--- NOTE | 2021-10-04 12:51 | Surgery Consultation ---
Date of Consultation October 04, 2021 Assessment & Plan (1) Morbid obesity with BMI of 45.0-49.9, adult: (2) Acute on chronic respiratory failure with hypoxia and hypercapnia: (3) Multifocal pneumonia: (4) Edema: (5) Hematoma: 76-year-old woman with multiple medical problems presents with hematoma of the left ankle/foot with what appears to be active extravasation on CT scan. If this is active extravasation, she may require interventional radiology for an embolization procedure. I am also concerned about possible compartment syndrome developing, she will require orthopedic consultation for this. We will follow peripherally. History of Present Illness Requesting Physician: Melisa Contreras MD Attending Physician: Melisa Contreras MD History of Present Illness 76-year-old woman hospitalized for bilateral pneumonia acute on chronic respiratory failure. She has atrial fibrillation and is anticoagulated. She is noted to have significant swelling and hematoma over the left lower extremity near the ankle. She does not have good sensation in her feet to begin with. A CT scan demonstrated a developing hematoma with what appears to be active extravasation. She denies significant pain. She denies other complaints associated with her feet. Allergies Allergy/AdvReac Type Severity Reaction Status Date / Time cephalexin Allergy Severe HIVES Verified 09/28/21 01:37 strawberry Allergy Severe hives Verified 09/28/21 01:37 sulfamethoxazole Allergy Mild Rash Verified 09/28/21 01:37 [From Bactrim] trimethoprim [From Bactrim] Allergy Mild Rash Verified 09/28/21 01:37 Unclassified Drugs Allergy Mild DIAL SOAP Uncoded 09/28/21 01:37 - RASH Home Medications Medication Instructions Recorded Confirmed Type famotidine 20 mg tablet 20 mg PO BID 06/12/19 09/28/21 History magnesium hydroxide 400 mg/5 mL 30 ml PO DIRECTED PRN 06/12/19 09/28/21 History oral suspension (Milk of Magnesia) sennosides 8.6 mg tablet (senna) 8.6 mg PO DAILY PRN 06/12/19 09/28/21 History Lactobacillus acidophilus 0 mg PO DAILY 07/03/19 09/28/21 History artifi.tears(hypromellose)(PF) 0.3 1 drops OPB BID 07/03/19 09/28/21 History % eye drops tizanidine 4 mg capsule 4 mg PO Q8H PRN #0 07/03/19 09/28/21 History ferrous sulfate 325 mg (65 mg 325 mg PO QAM 10/10/19 09/28/21 History iron) tablet,delayed release acetaminophen 325 mg tablet 650 mg PO Q6 PRN 12/07/19 09/28/21 History (Tylenol) calcium carbonate 500 mg-vitamin 1 tab PO BID 12/07/19 09/28/21 History D3 5 mcg (200 unit) tablet (Calcium 500 + D) oxycodone 5 mg tablet (Roxicodone) 10 mg PO Q4 PRN 12/07/19 09/28/21 History gabapentin 400 mg capsule 400 mg PO TID 08/12/20 09/28/21 History loratadine 10 mg tablet (Claritin) 10 mg PO QAM 08/12/20 09/28/21 History oxycodone 5 mg tablet 5 mg PO Q4H PRN 08/12/20 09/28/21 History oxybutynin chloride 5 mg 5 mg PO DAILY #30 tab 10/22/20 09/28/21 Rx tablet,extended release 24 hr cyanocobalamin (vitamin B-12) 1,000 mcg PO DAILY 09/28/21 09/28/21 History 1,000 mcg tablet (Vitamin B-12) diclofenac sodium 1 % topical gel 2 g TOPICAL QID 09/28/21 09/28/21 History fentanyl 37.5 mcg/hour transdermal 1 patch TOPICAL [id number] 09/28/21 09/28/21 History patch folic acid 1 mg tablet 1 mg PO DAILY 09/28/21 09/28/21 History furosemide 40 mg tablet 40 mg PO DAILY 09/28/21 09/28/21 History melatonin 5 mg tablet 5 mg PO HS 09/28/21 09/28/21 History menthol 0.44 %-zinc oxide 20.6 % 1 applic TOPICAL .Q SHIFT PRN 09/28/21 09/28/21 History topical ointment (Calmoseptine) multivitamin 1 tab PO DAILY 09/28/21 09/28/21 History pantoprazole 40 mg tablet,delayed 40 mg PO BID 09/28/21 09/28/21 History release polyethylene glycol 3350 17 gram 17 g PO DAILY 09/28/21 09/28/21 History oral powder packet (Miralax) ropinirole 0.25 mg tablet 0.25 mg PO HS PRN 09/28/21 09/28/21 History sennosides 8.6 mg-docusate sodium 1 tab-cap PO BID 09/28/21 09/28/21 History 50 mg tablet (Senna-S) vibegron 75 mg tablet (Gemtesa) 75 mg PO DAILY 09/28/21 09/28/21 History warfarin 3 mg tablet 3 mg PO DAILY 09/28/21 09/28/21 History Patient History Medical History Anemia Anosmia 2/2 resection of benign brain tumor Arthritis Atrial fibrillation dx few years ago - PCP monitors - on ASA, BB. Not on additional anticoagulation due to fall risk and prior meningioma. Chronic constipation Cognitive communication deficit COPD (chronic obstructive pulmonary disease) Dizziness intermittent; h/o recent falls; has been WC bound since March 2019, now resides in [facility] due to immobility. 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 No longer on seizure medications. 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 History of laminectomy LUMBAR History of lumpectomy of left breast Left breast lumpectomy with needle localization (02/22/18): LMA#4 at [facility] -- LUE LIMB RESTRICTION History of mastectomy PARTIAL /XRT FINISHED 04/2018 History of ovarian cystectomy History of repair of hiatal hernia History of total knee replacement BILATERAL History of total shoulder replacement RIGHT S/P IVC filter DUE TO LEFT LOWER EXTREMITY DVT'S WITHOUT CLEAR ETIOLOGY 10/12/2019-OFF ANTICOAGULANTS CURRENTLY S/P PICC central line placement 04/2019 for cellulitis of R hip Family History Mother , Passed age 62 of [place] Diabetes Coronary heart disease Hypertension Stroke Father , Passed age 68 of accident (fell down steps) No problems noted. Brother Family history of diabetes mellitus Diabetes Brother No problems noted. Sister Slow to wake up after anesthesia twin sister Breast cancer Twin - Left Breast - Lumpectomy/Chemo/RXT Sister No problems noted. Sister No problems noted. Sister No problems noted. Sister No problems noted. Son Sarcoidosis Son No problems noted. Daughter No problems noted. Grandmother (Paternal) Family history of diabetes mellitus Grandmother (Maternal) Family history of diabetes mellitus Mother Family history of diabetes mellitus Social History Smoking Status: Former smoker Tobacco Type: Cigarettes Years Smoked: 2; Cigarettes Per Day: HX OF SOCIAL CIGARETTE, QUIT 25 YEARS AGO.; Hx Alcohol Use: No Hx Substance Use: No (pt unwilling to answer) Preferred Language: Uzbek Communication Ability: Unable Visual Impairment: Limited Hearing Ability: Use of Hearing Aid Music Executive Required: Video and No Beliefs That Will Affect Care: None marital status: Current Living Situation: Personal Care Facility Current Living Situation Comment: [facility] 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 How many Children do You have: 3 Feels Safe at Home: Declines to Answer caffeine: No Assistive Devices: Wheelchair Assistive Devices Comment: Pt unsure of needs but able to shake head yes to use of a wheelchair Physical Exam Constitutional: WD/WN, vitals as above + ill appearing and + morbidly obese Neck: trachea midline, no thyromegaly Respiratory: normal respiratory effort; no respiratory distress and no labored breathing Cardiovascular: Rate/Rhythm: regular rate and regular rhythm Gastrointestinal (Abdomen): Inspection/Auscultation: abdomen normal to inspection; abdomen not distended Percussion/Palpation: abdomen soft Musculoskeletal: Ankle: + ecchymosis (Left ankle) Bilateral severe edema; motor and gross sensory intact foot/ankle Skin: Trauma: + hematoma (Left ankle) Results & Data ([facility]) Vital Signs (Past 12 Hours) Vital Signs Temp Pulse Resp BP Pulse Ox 10/04/21 07:03 36.8 C 76 20 155/88 H 92 Laboratory Results 10/04/21 10/04/21 10/04/21 Range/Units 08:56 05:19 05:19 WBC (4.8-10.8) K/uL RBC (4.2-5.4) M/uL Hgb 10.8 L (12.0-16.0) g/dL Hct 35.8 L (37-47) % MCV (80-100) fL MCH (25-34) pg MCHC (32-36) g/dL RDW Std Deviation (36.4-46.3) fL RDW Coeff of Tatyana (11.5-14.5) % Plt Count (130-400) K/uL MPV (7.4-10.4) fL Immature Gran % (Auto) % Neut % (Auto) % Lymph % (Auto) % [place] % (Auto) % Eos % (Auto) % Baso % (Auto) % Neut # (Auto) (1.4-6.5) K/uL Lymph # (Auto) (1.2-3.4) K/uL [place] # (Auto) (0.11-0.59) K/uL Eos # (Auto) (0-0.5) K/uL Baso # (Auto) (0-0.2) K/uL Immature Gran # (Auto) (0.00-0.02) K/uL PT 22.0 H (9.0-12.0) Seconds INR 2.2 H (0.9-1.1) Sodium 144 (136-145) mmol/L Potassium 3.4 L (3.5-5.1) mmol/L Chloride 103 (98-107) mmol/L Carbon Dioxide 34 H (21-32) mmol/L Anion Gap 7 (3-11) BUN 32 H (6-23) mg/dl Creatinine 0.88 (0.6-1.2) mg/dl Est Cr Clr Drug Dosing 81.8 ml/min Est GFR ( Amer) 74.5 ml/min Est GFR (Non-Af Amer) 64.3 ml/min BUN/Creatinine Ratio 36.4 H (10-20) Glucose 110 H (70-99(Fasting)) mg/dl Calcium 8.1 L (8.5-10.1) mg/dl 10/04/21 Range/Units 05:19 WBC 9.01 (4.8-10.8) K/uL RBC 3.73 L (4.2-5.4) M/uL Hgb 11.5 L (12.0-16.0) g/dL Hct 36.7 L (37-47) % MCV 98.4 (80-100) fL MCH 30.8 (25-34) pg MCHC 31.3 L (32-36) g/dL RDW Std Deviation 60.0 H (36.4-46.3) fL RDW Coeff of Tatyana 16.7 H (11.5-14.5) % Plt Count 182 (130-400) K/uL MPV 9.9 (7.4-10.4) fL Immature Gran % (Auto) 0.8 % Neut % (Auto) 67.8 % Lymph % (Auto) 21.9 % [place] % (Auto) 9.4 % Eos % (Auto) 0.1 % Baso % (Auto) 0.0 % Neut # (Auto) 6.11 (1.4-6.5) K/uL Lymph # (Auto) 1.97 (1.2-3.4) K/uL [place] # (Auto) 0.85 H (0.11-0.59) K/uL Eos # (Auto) 0.01 (0-0.5) K/uL Baso # (Auto) 0.00 (0-0.2) K/uL Immature Gran # (Auto) 0.07 H (0.00-0.02) K/uL PT (9.0-12.0) Seconds INR (0.9-1.1) Sodium (136-145) mmol/L Potassium (3.5-5.1) mmol/L Chloride (98-107) mmol/L Carbon Dioxide (21-32) mmol/L Anion Gap (3-11) BUN (6-23) mg/dl Creatinine (0.6-1.2) mg/dl Est Cr Clr Drug Dosing ml/min Est GFR ( Amer) ml/min Est GFR (Non-Af Amer) ml/min BUN/Creatinine Ratio (10-20) Glucose (70-99(Fasting)) mg/dl Calcium (8.5-10.1) mg/dl Diagnostic Findings CT OF THE LEFT FOOT WITH CONTRAST CLINICAL HISTORY: significant left foot pain, edematous, bruising COMPARISON STUDY: Left foot radiographs October 04, 2021 at 12:43 AM. TECHNIQUE: Axial images of the left foot were obtained following intravenous injection of 120 cc of Optiray 320 IV. Sagittal and coronal reconstructions were viewed. Automated exposure control was utilized for the study. A dose lowering technique was utilized adhering to the principles of ALARA. FINDINGS: No acute fracture within the left foot or ankle is identified although sensitivity is diminished given motion artifact and severe osteopenia. Mild cortical irregularity within the bases of several metatarsals. This is likely chronic. No definite acute fracture. Extensive vascular calcification is noted. There is soft tissue swelling of the left lower leg, ankle and foot. Note is made of a partially visualized fluid collection along anterior aspect of the distal left tibia and fibula which measures approximately 7.5 x 7.2 x 3.6 cm. This collection has two components which likely communicate and a fluid fluid level consistent with a hematoma with layering hyperdense material. Also contains 2 foci of contrast material suggestive of active extravasation. No additional hematomas are identified within the left foot or ankle. No suspicious osseous lesions are present. There is no CT evidence for acute osteomyelitis. IMPRESSION: 1. 7.5 x 7.2 x 3.6 cm fluid collection along the anterior aspect of the distal left tibia and fibula. This contains a fluid fluid level with layering hyperdense material consistent with a hematoma. Two suspected foci of active extravasation consistent with active bleeding. This finding will be called/faxed to ordering provider at time of dictation. 2. Cortical irregularity of the bases of several metatarsals. This is likely chronic. No definite acute fracture although sensitivity diminished given motion artifact and severe osteopenia.
[2021-10-04] MEDS: levoFLOXacin 750 MG TAB PO SCH (18:21)
[2021-10-04] MEDS: ACETAMINOPHEN 325 MG TAB PO PRN (20:18)
[2021-10-05] MEDS: ACETAMINOPHEN 325 MG TAB PO PRN (05:28)
[2021-10-05 06:51] VITALS: BP 161/92; O2SAT 93
[2021-10-05 06:56] LABS: Eosinophils # (auto) 0.03 K/uL (0-0.5); Eosinophils % (auto) 0.3 %; Hematocrit (blood only) 36.3 % (37-47); Hemoglobin 11.1 g/dL (12.0-16.0); Immature Granulocytes # (auto) 0.04 K/uL (0.00-0.02); Immature Granulocytes % (auto) 0.4 %; Lymphocytes # (auto) 2.09 K/uL (1.2-3.4); Lymphocytes % (auto) 21.9 %; Mean Corpuscular Hemoglobin 30.4 pg (25-34); Mean Corpuscular Hgb Conc 30.6 g/dL (32-36); Mean Corpuscular Volume 99.5 fL (80-100); Mean Platelet Volume 10.2 fL (7.4-10.4); Monocytes # (auto) 0.96 K/uL (0.11-0.59); Monocytes % (auto) 10.1 %; Neutrophils # (auto) 6.43 K/uL (1.4-6.5); Neutrophils % (auto) 67.3 %; Platelet Count 174 K/uL (130-400); RDW Coefficient of Variation 16.9 % (11.5-14.5); RDW Standard Deviation 60.5 fL (36.4-46.3); Red Blood Count 3.65 M/uL (4.2-5.4); White Blood Count 9.55 K/uL (4.8-10.8)
[2021-10-05 07:01] LABS: INR 1.6 (0.9-1.1); Prothrombin Time 17.1 Seconds (9.0-12.0)
[2021-10-05 07:12] LABS: BUN Creatinine Ratio 37.3 (10-20); Calcium 8.4 mg/dl (8.5-10.1); Creatinine Clr Calc Pharmacy 86.7 ml/min; Est GFR (African American) 79.9 ml/min; Potassium 3.7 mmol/L (3.5-5.1)
[2021-10-05] MEDS: GABAPENTIN 400 MG CAP PO SCH (07:53)
[2021-10-05] MEDS: METOPROLOL TARTRATE 25 MG TAB PO SCH (07:53)
[2021-10-05] MEDS: FUROSEMIDE 40 MG TAB PO SCH (07:53)
[2021-10-05] MEDS: PANTOprazole 40 MG TAB PO SCH (07:53)
[2021-10-05] MEDS: LORATADINE 10 MG TAB PO SCH (07:54)
[2021-10-05] MEDS: MULTIVITAMIN TAB PO SCH (07:54)
[2021-10-05] MEDS: FOLIC ACID 1 MG TAB PO SCH (07:54)
[2021-10-05] MEDS: OXYBUTYNIN CHLORIDE XL 5 MG TABCR PO SCH (07:54)
[2021-10-05] MEDS: CYANOCOBALAMIN (B-12) 500 MCG TABLET PO SCH (07:54)
[2021-10-05] MEDS: FERROUS SULFATE 325 MG TAB PO SCH (07:54)
[2021-10-05] MEDS: ARTIFICIAL TEARS OP SCH (07:55)
[2021-10-05] MEDS: POLYETHYLENE (MIRALAX) 17 GM PACK PO SCH (07:55)
[2021-10-05] MEDS ORDERED: predniSONE 20 MG TAB PO SCH (09:00)
[2021-10-05] MEDS: FAMOTIDINE 20 MG TAB PO SCH (10:47)
[2021-10-05 12:57] VITALS: PULSE 80
--- NOTE | 2021-10-05 19:08 | Discharge Summary ---
Date of Service October 05, 2021 Admission HPI Per Admitting Provider The patient is a 76-year-old female with a past medical history including lumbar spinal stenosis, breast cancer, left lower extremity cellulitis, hip DJD, pressure ulcer of coccygeal region, DVT, GLORIA, urinary incontinence, lymphedema, hyperlipidemia, hypertension, seizure, GERD, Raynaud's and COPD. The patient was referred to the emergency department after EMS was called due to decreased responsiveness while at nursing care at [facility]. The patient's fentanyl patch was removed by nursing prior to transport due to concerns about a possible narcotic overdose. In the emergency department she did receive 0.2 mg of IV Narcan which reportedly had good effect, and the patient became more awake and verbal. At the time of my examination, the patient was lethargic but arousable Principal Diagnosis CO2 retention, encephalopathy secondary to CO2 retention, narcotics overdose Extensive hematoma of the left ankle Discharge Exam gen - morbidly obese, obtunded, snoring eyes - PERRL, about 2mm b/l mouth - MM dry neck - no obvious JVD heart - irregularly irregular, s1 s2, no murmur lungs - very poor air movement, hint of crackles bases, mild tachypnea noted abd - soft obese; no apparent tenderness ext - severe lymphedema b/l legs; pulses 1+ b/l feet neuro - babinski's negative Constitutional WD/WN, vitals as above + morbidly obese Eyes PERRL, conjunctivae normal, anicteric sclerae + anicteric sclerae ENMT external ear and nose normal, oropharynx normal Neck trachea midline, no thyromegaly Respiratory normal respiratory effort, lungs clear to auscultation Cardiovascular Rate/Rhythm: regular rate and + irregularly irregular Heart Sounds: no murmur Extremities: + edema (4+ pitting edema to the thighs bilaterally) Chest (Breasts) Chest: normal inspection of chest Gastrointestinal (Abdomen) normal bowel sounds, soft, nontender, no hepatosplenomegaly Musculoskeletal Extremities: + extremities abnormal to inspection (Bruising on right shoulder), no cyanosis and no clubbing Skin no rashes, warm and dry + erythema (Chronic venous stasis changes with erythema of the legs bilaterally) Neurologic moves all extremities and awake; no focal motor deficits Psychiatric Orientation: alert, oriented to person, oriented to place and cooperative Discharge Data Allergies Allergy/AdvReac Type Severity Reaction Status Date / Time cephalexin Allergy Severe HIVES Verified 09/28/21 01:37 strawberry Allergy Severe hives Verified 09/28/21 01:37 sulfamethoxazole Allergy Mild Rash Verified 09/28/21 01:37 [From Bactrim] trimethoprim [From Bactrim] Allergy Mild Rash Verified 09/28/21 01:37 Unclassified Drugs Allergy Mild DIAL SOAP Uncoded 09/28/21 01:37 - RASH Consultations 09/27/21 23:41 ED Decision to Admit Stat 10/04/21 04:38 Consult General Surgery Routine 10/04/21 12:31 Consult Orthopedic Surgery Routine Ordered Studies 09/27/21 22:03 CT head/brain wo con Urgent 10/04/21 01:56 CT foot LT w con Urgent Hospital Course (1) Acute on chronic respiratory failure with hypoxia and hypercapnia: Acute component is 2nd to CO2 narcosis in the setting of b/l pneumonia and chronic opiate usage. All opiates including fentanyl patches and oxycodone have been stopped and she is now much improved BIPAP was required for 24 hours from 09/28 to the morning of 09/29 and is now weaned off to nasal cannula as her mentation and CO2 levels improved Initial VBG with markedly elevated pCO2 of >100. following BIPAP 24/11 her pH and pCO2 did improve. Now weaned down to 2 L nasal cannula for oxygen-I do not believe she is on oxygen at baseline Mentation now much improved For suspected pneumonia - since she lives in a SNF -antibiotic coverage to include atypicals and gram negatives was provided She was initially treated with Zosyn and doxycycline x4 days and converted to levofloxacin orally to finish 7-day course-last day of treatment was 10/04 MRSA swab negative so no need for MRSA coverage She carries a diagnosis of COPD and her aeration is very poor on exam. Was started on steroids and then tapered off Continue bronchodilators. 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 Overnight sleep study positive w/ POx < 88% on 2 L nasal cannula for > 5 minutes AM ABG while much improved from previous, still abnormal showing chronic CO2 retention at 7.4 0/55/108 on 2 L nasal cannula trilogy ventilator for at nighttime for when she leaves the hospital-she has been very compliant with using the BiPAP at night here and tolerates it well (2) Acute metabolic encephalopathy: 2nd to markedly elevated PaCO2, narcotics, pneumonia, etc.-now resolved after being on BiPAP Checked ammonia - normal. CT head at admission negative. Continue BIPAP for hypercapnia at bedtime now and with naps during the day Treated with abx for pneumonia. (3) Hematoma: Developed a spontaneous hematoma of the anterior distal leg and ankle overnight on 10/03 She is on Coumadin and her INR was therapeutic. She had been doing some ankle PT exercises in the bed that day but otherwise no known trauma. This caused severe pain and some mild acute blood loss anemia with hemoglobin dropped to 10.8, but remained hemodynamically stable Pain is now much better controlled after 1 dose of IV Dilaudid -Consulted general surgery-they recommended either IR intervention for active extravasation versus orthopedic surgery consultation to evaluate for compartment syndrome -Doubt compartment syndrome at this point although she does have chronic neuropathy so sensation difficult to tell-difficult to palpate pulses because of significant edema, but pain is now much improved -Stop warfarin at this point, patient is to be evaluated again in 3 to 4 days by primary care physician to make a medical decision if it is appropriate to resume Coumadin, I recommend to use novel anticoagulation given they have less chance of bleeding (4) Multifocal pneumonia: COVID/RSV/flu test negative. Repeat cxr again confirms b/l pneumonia. Completed 7-day course of antibiotics as above Blood cultures remain no growth -Would follow chest x-ray to resolution as an outpatient in 4-6 weeks (5) Opiate overdose: It is unclear if she truly had a large quantity of opiates all at once leading to a typical overdose on admission The PDMP shows she has NOT had any oxycodone prescribed/refilled since October 2020 but the MAR from [facility] continues to show oxycodone prn. I am most concerned that due to her morbid obesity she will build-up large levels of fentanyl with ongoing use. Oxycodone usage on top of fentanyl will certainly compound this issue. All opiates have been discontinued this entire hospital stay and she actually has no significant c/o pain (except for acute hematoma of the ankle as above) Fortunately, she is not having any opioid withdrawal symptoms either if needed, would only give lower doses of hydrocodone/APAP or another non-opioid analgesic if absolutely necessary for her chronic arthritis pain in the future (6) Elevated troponin: myocardial demand ischemia in the setting of acute respiratory failure and pneumonia no evidence of ACS echo with normal LV wall motion (7) Chronic prescription opiate use: as above Discontinued all chronic opioids (8) Atrial fibrillation: permanent on coumadin rates controlled here continue metoprolol INR peaked at 5.6, no evidence of bleeding except some bruising on the right shoulder at that point --> gave Vitamin K 1 mg po x 1 on 09/30 INR then was subtherapeutic and she received 1 day of bridging Lovenox INR was therapeutic again on 10/04 and Lovenox was discontinued, Coumadin was continued Then developed spontaneous left leg hematoma on 10/03-INR 2.7 at the time Was given vitamin K 2.5 mg p.o. x1 on the night of 10/03 and INR only came down to 2.2 There was a question of active extravasation on the CT of the leg-give another vitamin K 2.5 mg p.o. x1 on 10/04 Continue to hold Coumadin, needs to be followed by primary care doctor in 3 to 4 days to see if it is appropriate to resume Coumadin (9) COPD (chronic obstructive pulmonary disease): she is not on bronchodilator therapy at the SNF Continue prednisone taper and as needed albuterol (10) GERD (gastroesophageal reflux disease): Continue Pepcid (11) History of DVT (deep vein thrombosis): noted on coumadin for such + a.fib Now reversing Coumadin and holding Coumadin as above for hematoma (12) Hypertension: BPs mildly elevated Continue metoprolol, furosemide at current doses (13) Morbid obesity with BMI of 45.0-49.9, adult: BMI 46.7 needs weight loss (14) DVT prophylaxis: coumadin now on hold as above Disposition-was going to be discharged over the weekend but the [facility] could not obtain her trilogy machine until Tuesday, however now with acute hematoma, she is no longer medically stable for discharge on Tuesday. Continued stay now for management of hematoma of the ankle. Eventually, she will return back to her bed hold at [facility] I have been updating her Sister Carmencita by phone almost daily Total Time Total Time Spent Total Time Spent (In Minutes): 45 Discharge Plan Discharge Items Patient Disposition: Transfer Longterm Fac Reason For Visit: AMS, PNEUMONIA, NSTEMI Discharge Diagnosis: CO2 retension , Encephalopathy , left ankle hematoma, NSTEMI , Narcotic overdose Activity: Resume your previous activity Non-emergency contact: Primary Care Provider Call non-emergency contact if: you have any medication questions Follow-up/Referrals: [facility] [Primary Care Provider] - Diet: Carb Consistent or DM2 and Low Sodium (2gm) Addtl Attending Provider Instructions: she has extensive Hematoma of left ankle , She is off anticoagulation . She needs to be revaluated by primary care doctor to see if it is appropriate to resume anticoagulation or not novel anticoagulant have less chance of bleeding in comparison to Warfarin. Pending Studies at Discharge: No Stand-Alone Forms: [facility] Skilled Items Patient informed of condition?: Yes DNR: Yes Discharge Level of Care: Skilled Communicable Disease: No Discharge Prognosis: Other Lines: None Urinary Catheter: No Medications and DC Order Prescriptions: New ipratropium-albuterol 0.5 mg-3 mg(2.5 mg base)/3 mL Solution For Nebulization 3 ml NEB Q4R PRN (Reason: shortness of breath or wheezing) Qty: 100 RF: 0 metoprolol tartrate 25 mg Tablet 25 mg PO Q12 Qty: 30 RF: 0 Continued tizanidine 4 mg capsule 4 mg PO Q8H PRN (Reason: Muscle Pain) Qty: 0 RF: 0 artifi.tears(hypromellose)(PF) 0.3 % drops 1 drops OPB BID RF: 0 Lactobacillus acidophilus Capsule 0 mg PO DAILY RF: 0 oxybutynin chloride 5 mg tablet extended release 24hr 5 mg PO DAILY Qty: 30 RF: 5 sennosides [senna] 8.6 mg Tablet 8.6 mg PO DAILY PRN (Reason: Constipation) RF: 0 famotidine 20 mg Tablet 20 mg PO BID RF: 0 magnesium hydroxide [Milk of Magnesia] 400 mg/5 mL Suspension 30 ml PO DIRECTED PRN (Reason: Constipation) RF: 0 ferrous sulfate 325 mg (65 mg iron) Tablet,Delayed Release (Dr/Ec) 325 mg PO QAM RF: 0 acetaminophen [Tylenol] 325 mg Tablet 650 mg PO Q6 PRN (Reason: Pain/fever) RF: 0 calcium carbonate-vitamin D3 [Calcium 500 + D] 500 mg(1,250mg) -200 unit Tablet 1 tab PO BID RF: 0 gabapentin 400 mg Capsule 400 mg PO TID RF: 0 loratadine [Claritin] 10 mg tablet 10 mg PO QAM RF: 0 multivitamin Tablet 1 tab PO DAILY RF: 0 furosemide 40 mg tablet 40 mg PO DAILY RF: 0 polyethylene glycol 3350 [Miralax] 17 gram Powder In Packet 17 g PO DAILY RF: 0 sennosides-docusate sodium [Senna-S] 8.6-50 mg Tablet 1 tab-cap PO BID RF: 0 cyanocobalamin (vitamin B-12) [Vitamin B-12] 1,000 mcg Tablet 1,000 mcg PO DAILY RF: 0 ropinirole 0.25 mg tablet 0.25 mg PO HS PRN (Reason: Constipation) RF: 0 pantoprazole 40 mg tablet,delayed release (DR/EC) 40 mg PO BID RF: 0 folic acid 1 mg Tablet 1 mg PO DAILY RF: 0 diclofenac sodium 1 % gel 2 g TOPICAL QID RF: 0 melatonin 5 mg Tablet 5 mg PO HS RF: 0 menthol-zinc oxide [Calmoseptine] 0.44-20.6 % Ointment 1 applic TOPICAL .Q SHIFT PRN (Reason: ..) RF: 0 Gemtesa 75 mg tablet 75 mg PO DAILY RF: 0 Discontinued oxycodone [Roxicodone] 5 mg tablet 10 mg PO Q4 PRN (Reason: Pain) RF: 0 oxycodone 5 mg Tablet 5 mg PO Q4H PRN (Reason: Pain) RF: 0 warfarin 3 mg tablet 3 mg PO DAILY RF: 0 fentanyl 37.5 mcg/hour patch 72 hour 1 patch topical [id number] RF: 0 Discharge Orders: Discharge Order (Routine); Ordered 10/05/21 Ordered By: Jomar Evans Admission Data Admit Date/Time: 09/28/21 01:19 Attending Provider: Jomar Evans Admit Provider: Jonatan Parekh [facility] Other Providers: [facility] ; Jonatan Parekh ; Dane Mora ; Isreal Messina ; Solo Ball ; Sanjeev Sanz Jr ; Farshad Ruby ; Raymond Foley ; Sierra Callaway ; Chi Flores ; Jacob Deluna ; Coy Posada ; Melisa Contreras Other Interventions: Discharge Summary Assessment (RN) Last Done: 10/05/21 12:56 Coding Level of Care Code D/C DAY MANAGEMENT >30 MINS Diagnoses Acute on chronic respiratory failure with hypoxia and hypercapnia J96.21; J96.22 Acute metabolic encephalopathy G93.41 Hematoma T14.8XXA Multifocal pneumonia J18.9 Opiate overdose T40.601A Encounter type: initial encounter Injury intent: accidental or unintentional Elevated troponin R77.8 Chronic prescription opiate use Z79.891 Atrial fibrillation I48.91 COPD (chronic obstructive pulmonary disease) J44.9 GERD (gastroesophageal reflux disease) K21.9 History of DVT (deep vein thrombosis) Z86.718 Hypertension I10 Morbid obesity with BMI of 45.0-49.9, adult E66.01; Z68.42 DVT prophylaxis Z29.9
[2021-10-10] MEDS ORDERED: PANTOprazole 40 MG TAB PO SCH (09:00)
--- NOTE | 2021-10-13 08:06 | Coding Query ---
CODING QUERY To promote full compliance with coding requirements relating to patient care, provider participation is requested in all cases of trim mounter uncertainty. Please assist us with the question(s) below: Coding Question(s): Patient adm with acute/chronic respiratory failure due to pneumonia and overdose fentanyl. The Discharge summary documents both NSTEMI and demand ischemia. Seeking to clarify . Please check below & thank you. Luis Alonso [facility] Physician's Response(s): The patient was admitted with NSTEMI The patient had myocardial demand ischemia ____X____ The patient had Type II demand ischemia Other/ Please document: Principal Diagnosis: "that condition established after study, to be chiefly responsible for occasioning the admission of the patient to the hospital for care." Co-Existing Principal Diagnosis: "when two or more diagnoses equally meet the criteria for principal diagnosis as determined by the circumstances of admission, diagnostic work up, and/or therapy provided, and the Alphabetic Index, Tabular List, or another coding guideline does not provide sequencing direction, any one of the diagnoses may be sequenced first." "When the physician has documented what appears to be a current diagnosis in the body of the record, but has not included the diagnosis in the final diagnostic statement, the physician should be asked whether the diagnosis should be added." (Source Coding Clinic 2 QTR90. p3-4) EMILY
== END 2021-10-05 13:12 | DRG 193 ==
LOC: ED 21:39 → SUATTDRO 09-28 01:19 → 2S 09-28 01:19 → 2W 10-01 12:41

== ENCOUNTER 2022-01-30 08:31 | Inpatient (IN) ==
--- NOTE | 2022-01-30 08:53 | Emergency Department Note ---
Impression & Plan AMS (altered mental status), Acute UTI, Respiratory failure with hypercapnia, Acute metabolic encephalopathy ED Provider Note Provider: Jeremías Rausch MD DATE OF SERVICE: 01/30/2022 CHIEF COMPLAINT: Altered mental status HISTORY OF PRESENT ILLNESS: Patient is a 76-year-old female history of breast cancer, DVT on Coumadin, lymphedema, hyperlipidemia, hypertension, seizure, and COPD presenting here via ambulance from her nursing facility today. Patient evidently noted by staff to be altered this morning and to have low oxygen levels on her baseline 3 L of oxygen. Patient evidently by the report would not wear her BiPAP/CPAP mask overnight. No reported fevers or trauma. Patient hers elf does not answer question upon arrival. No additional history available from her. EMS report her blood sugar was not low and that they increased her to 6 L of oxygen satting in the high 90s with a cardiac rhythm of atrial fibrillation. Paperwork present with the patient from the facility upon arrival indicate the patient is on Coumadin as well as furosemide. Patient herself is not following commands. Patient has a advanced directive paperwork with her indicating that she is DNR. Sister states yesterday patient was having hallucinations and was not herself. She was reportedly talking about joining the [employer]. Not eating much the last several days. Sister confirms DNR/DNI status. REVIEW OF SYSTEMS: Limited secondary to mental status PAST MEDICAL HISTORY: As noted above MEDICATIONS: Reviewed medication list from the facility SOCIAL HISTORY: Currently denied the [facility] PHYSICAL EXAM: GENERAL: Minimal response to painful stimuli. Not following commands. Head: normocephalic and atraumatic EYES: No injection, discharge or icterus. PERRL but not tracking. NECK: Trachea midline. Supple. ENT: Mucous membranes pink and moist. Pharynx without erythema or exudate. LUNGS: Airway patent. No retractions. Breath sounds diminished. HEART: Irregular rate and rhythm. No chest wall tenderness ABDOMEN: Soft and non-tender, without guarding or rebound. SKIN: Acyanotic, warm, dry, without rashes EXTREMITIES: Obvious tenderness with 2+ lower extremity edema with some healed right knee scar. NEUROLOGICAL: Slight withdrawal to pain all 4 extremities but minimal. Not following commands. Not verbal. Resting with eyes closed appears obtunded. EK bpm atrial fibrillation occasional PVC. No acute ST segment elevation noted with a QTC of 450. CONTINUOUS CARDIAC MONITORING: was ordered and showed a heart rate of bpm in atrial fibrillation. Patient's laboratory studies and imaging reviewed. Differential includes Infection, dehydration, metabolic abnormality, hypo/hyperglycemia, electrolyte disturbance, anemia, hypoxia, cardiac sources, intracerebral event, toxicologic, neurologic, as well as other pathologies. IMPRESSION/MEDICAL DECISION MAKING: Patient presents obtunded evidently would not wear her BiPAP overnight and has a history of COPD. Do question CO2 retention causing her symptoms. We will complete a CT head when able. Placed on BiPAP initially given her decreased mental status. Given her limited CODE STATUS we will not proceed with intubation at this time. Cultures and blood work including VBG were obtained. Surprisingly VBG shows compensation with pH of 736 although CO2 is elevated at 83 again seems fairly compensated. Lactate not elevated. No leukocytosis. No significant anemia. Some mild hyponatremia but similar to previous. No significant renal dysfunction noted. Slight troponin elevation again not far o ff previous. INR 4.0. Procalcitonin not severely elevated. Urine sample appears grossly infected after Alvarez insertion here. Does have a history of UTI in the past. This may itself be the etiology of her altered mental status. Reviewed microbiology and covered with antibiotics. Given an IV dose of ertapenem. CT of the head per radiology without acute bleed or findings noted. Given her altered mental status will bring her to the hospital for further care. DIAGNOSIS: Altered mental status, acute UTI DISPOSITION: Hospitalist will evaluate Critical Care I have personally spent 52 minutes of critical care time in the direct management of this patient. This includes bedside care, interpretation of diagnostic studies, and testing, discussion with consultants, patient, and family members, and other required patient management activities. These 52 minutes is in excess of all separately billable procedures. Past Med/Surg History Medical History Acute alteration in mental status Acute UTI Anemia Anosmia 2/2 resection of benign brain tumor Arthritis Atrial fibrillation dx few years ago - PCP monitors - on ASA, BB. Not on additional anticoagulation due to fall risk and prior meningioma. Chronic constipation Cognitive communication deficit COPD (chronic obstructive pulmonary disease) Dizziness intermittent; h/o recent falls; has been WC bound since March 2019, now resides in [facility] due to immobility. Elevated troponin GERD (gastroesophageal reflux disease) Gross hematuria Hearing deficit B/L ROBERT Heart valve regurgitation Mild to moderate MR/[facility] History of benign brain tumor s/p removal 2017 History of breast cancer s/p left breast lumpectomy + radiation History of cellulitis RLE History of COVID-19 + 04/2020 PER NURSING [facility]/PAST History of DVT (deep vein thrombosis) 20+ years ago/after ankle fx EKUK (hard of hearing) Bilateral Hearing Aids Hyperlipidemia Hypertension Immobility CASEY LIFT, Severe LE pain and weakness; possibly 2/2 spinal stenosis or hip pain Lymphedema Meningioma Mixed stress and urge urinary incontinence Morbid obesity Opiate overdose Osteoarthritis Peripheral neuropathy Raynauds disease Seizure sz first episode 2014, discovered brain tumor; additional sz S/P BRAIN TUMOR REMOVAL IN 2017; last seizure 2017. No longer on seizure medications. Spinal stenosis with neuropathy Stress incontinence in female Surgical History H/O hernia repair H/O Spinal surgery History of ankle fusion RIGHT History of bladder surgery TURBT (11/26/19): LMA#4, atraumatic at [facility] History of breast biopsy History of craniotomy HX OF BENIGN TUMOR REMOVAL IN 2017-TEMPORAL MENINGIOMA History of laminectomy LUMBAR History of lumpectomy of left breast Left breast lumpectomy with needle localization (02/22/18): LMA#4 at [facility] -- LUE LIMB RESTRICTION History of mastectomy PARTIAL /XRT FINISHED 04/2018 History of ovarian cystectomy History of repair of hiatal hernia History of total knee replacement BILATERAL History of total shoulder replacement RIGHT S/P IVC filter DUE TO LEFT LOWER EXTREMITY DVT'S WITHOUT CLEAR ETIOLOGY 10/12/2019-OFF ANTICOAGULANTS CURRENTLY S/P PICC central line placement 04/2019 for cellulitis of R hip Family History Mother , Passed age 62 of AR Diabetes Coronary heart disease Hypertension Stroke Father , Passed age 68 of accident (fell down steps) No problems noted. Brother Family history of diabetes mellitus Diabetes Brother No problems noted. Sister Slow to wake up after anesthesia twin sister Breast cancer Twin - Left Breast - Lumpectomy/Chemo/RXT Sister No problems noted. Sister No problems noted. Sister No problems noted. Sister No problems noted. Son Sarcoidosis Son No problems noted. Daughter No problems noted. Grandmother (Paternal) Family history of diabetes mellitus Grandmother (Maternal) Family history of diabetes mellitus Mother Family history of diabetes mellitus Social History Smoking Status: Unknown if ever smoked Tobacco Type: Cigarettes Years Smoked: 2; Cigarettes Per Day: HX OF SOCIAL CIGARETTE, QUIT 25 YEARS AGO.; Hx Alcohol Use: No Hx Substance Use: No (pt unwilling to answer) Preferred Language: Moldovan Communication Ability: Unable Visual Impairment: Limited Hearing Ability: Use of Hearing Aid Mate Ship Required: Video and No Beliefs That Will Affect Care: None marital status: Current Living Situation: Personal Care Facility Current Living Situation Comment: [facility] 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 How many Children do You have: 3 Feels Safe at Home: Declines to Answer caffeine: No Assistive Devices: Wheelchair Allergies Allergies Allergy/AdvReac Type Severity Reaction Status Date / Time cephalexin Allergy Severe HIVES Verified 12/15/21 11:42 strawberry Allergy Severe hives Verified 12/15/21 11:42 sulfamethoxazole Allergy Mild Rash Verified 12/15/21 11:42 [From Bactrim] trimethoprim [From Bactrim] Allergy Mild Rash Verified 12/15/21 11:42 Unclassified Drugs Allergy Mild DIAL SOAP Uncoded 12/15/21 11:42 - RASH Home Meds Home Medications Medication Instructions Recorded Confirmed famotidine 20 mg tablet 20 mg PO BID 06/12/19 01/30/22 magnesium hydroxide 400 mg/5 mL 30 ml PO DIRECTED PRN 06/12/19 01/30/22 oral suspension (Milk of Magnesia) Constipation sennosides 8.6 mg tablet (senna) 8.6 mg PO DAILY PRN Constipation 06/12/19 01/30/22 Lactobacillus acidophilus 0 mg PO DAILY 07/03/19 01/30/22 artifi.tears(hypromellose)(PF) 0.3 1 drops OPB BID 07/03/19 01/30/22 % eye drops tizanidine 4 mg capsule 4 mg PO Q8H PRN Muscle Pain ##0 07/03/19 01/30/22 ferrous sulfate 325 mg (65 mg 325 mg PO QAM 10/10/19 01/30/22 iron) tablet,delayed release acetaminophen 325 mg tablet 650 mg PO Q6 PRN Pain/fever 12/07/19 01/30/22 (Tylenol) calcium carbonate 500 mg-vitamin 1 tab PO BID 12/07/19 01/30/22 D3 5 mcg (200 unit) tablet (Calcium 500 + D) gabapentin 400 mg capsule 400 mg PO TID 08/12/20 01/30/22 loratadine 10 mg tablet (Claritin) 10 mg PO QAM 08/12/20 01/30/22 cyanocobalamin (vitamin B-12) 1,000 mcg PO DAILY 09/28/21 01/30/22 1,000 mcg tablet (Vitamin B-12) diclofenac sodium 1 % topical gel 2 g topical QID 09/28/21 01/30/22 folic acid 1 mg tablet 1 mg PO DAILY 09/28/21 01/30/22 furosemide 40 mg tablet 80 mg PO BID 09/28/21 01/30/22 melatonin 5 mg tablet 5 mg PO HS 09/28/21 01/30/22 menthol 0.44 %-zinc oxide 20.6 % 1 applic topical .Q SHIFT PRN .. 09/28/21 01/30/22 topical ointment (Calmoseptine) multivitamin 1 tab PO DAILY 09/28/21 01/30/22 pantoprazole 40 mg tablet,delayed 40 mg PO BID 09/28/21 01/30/22 release polyethylene glycol 3350 17 gram 17 g PO DAILY 09/28/21 01/30/22 oral powder packet (Miralax) ropinirole 0.25 mg tablet 0.25 mg PO HS PRN Constipation 09/28/21 01/30/22 sennosides 8.6 mg-docusate sodium 1 tab-cap PO BID 09/28/21 01/30/22 50 mg tablet (Senna-S) vibegron 75 mg tablet (Gemtesa) 75 mg PO DAILY 09/28/21 01/30/22 potassium chloride 20 mEq 20 meq PO DAILY 01/30/22 01/30/22 tablet,extended release(part/cryst) warfarin 5 mg tablet 7.5 mg PO DAILY 01/30/22 01/30/22 Previous Rx's Medication Instructions Recorded oxybutynin chloride 5 mg 5 mg PO DAILY #30 tabs 10/22/20 tablet,extended release 24 hr ipratropium 0.5 mg-albuterol 3 mg 3 ml NEB Q4R PRN shortness of 10/05/21 (2.5 mg base)/3 mL nebulization breath or wheezing #100 mL soln metoprolol tartrate 25 mg tablet 25 mg PO Q12 #30 tabs 10/05/21 Results & Data (ED) Vital Signs Vital Signs - 24 hr 01/30/22 08:39 01/30/22 09:15 01/30/22 09:04 Temperature 35.8 C L Temperature Source Axillary Pulse Rate 72 64 Pulse Rate [Finger] Respiratory Rate 18 21 Respiratory Effort / Characteristics Spontaneous Blood Pressure 148/96 H Blood Pressure [Right Arm] Blood Pressure Mean 113 Blood Pressure Mean [Right Arm] Blood Pressure Position [Right Arm] Pulse Oximetry 97 96 96 Oxygen Delivery Method Nasal Cannula BiPAP Oxygen Flow Rate 6 6 Fraction of Inspired Oxygen 40 Sepsis New/Unexplained Change in Mental Status Yes Sepsis Action Taken by Nursing Physician Notified Fraction of Inspired Oxygen - Titration 40 Pulse Oximetry Post Tiitration 97 01/30/22 10:21 Temperature Temperature Source Pulse Rate Pulse Rate [Finger] 91 H Respiratory Rate 16 Respiratory Effort / Characteristics Blood Pressure Blood Pressure [Right Arm] 155/131 H Blood Pressure Mean Blood Pressure Mean [Right Arm] 139 Blood Pressure Position [Right Arm] Semi-fowlers Pulse Oximetry 96 Oxygen Delivery Method Room Air Oxygen Flow Rate Fraction of Inspired Oxygen Sepsis New/Unexplained Change in Mental Status Sepsis Action Taken by Nursing Fraction of Inspired Oxygen - Titration Pulse Oximetry Post Tiitration Laboratory Data Result diagrams: 01/30/22 08:52 01/30/22 08:52 Lab Results 01/30/22 01/30/22 01/30/22 Range/Units 08:52 08:52 08:52 WBC 6.70 (4.8-10.8) K/ul RBC 4.27 (3.93-5.22) M/uL Hgb 13.0 (12.0-16.0) g/dl Hct 45.7 H (34.1-44.9) % MCV 107.0 H (80.0-100.0) fL MCH 30.4 (25.0-34.0) pg MCHC 28.4 L (32.0-36.0) g/dL RDW Std Deviation 67.0 H (36.4-46.3) fL RDW Coeff of Tatyana 17.3 H (11.5-14.5) % Plt Count 173 (130-400) K/uL MPV 10.7 (9.4-12.3) fL Immature Gran % (Auto) 1.2 % Neut % (Auto) 69.9 % Lymph % (Auto) 18.7 % [place] % (Auto) 10.0 % Eos % (Auto) 0.1 % Baso % (Auto) 0.1 % Neut # (Auto) 4.68 (1.4-6.5) K/uL Lymph # (Auto) 1.25 (1.2-3.4) K/uL [place] # (Auto) 0.67 (0.24-0.82) K/uL Eos # (Auto) 0.01 (0-0.50) K/uL Baso # (Auto) 0.01 (0-0.2) K/uL Immature Gran # (Auto) 0.08 H (0.00-0.02) K/uL Absolute Nucleated RBC 0.02 H (0-0) K/uL Nucleated RBC % (auto) 0.3 % Polychromasia 1+ PT 39.6 H (9.0-12.0) Seconds INR 4.0 H (0.9-1.1) VBG pH 7.36 (7.36-7.41) VBG pCO2 83 H (38-50) mmHg VBG pO2 46 mmHg VBG HCO3 47 mmol/L VBG O2 Saturation 69.8 % VBG Base Excess 17.0 mEq/L Sodium (136-145) mmol/L Potassium (3.5-5.1) mmol/L Chloride (98-107) mmol/L Carbon Dioxide (21-32) mmol/L Anion Gap (3-11) BUN (6-23) mg/dl Creatinine (0.6-1.2) mg/dl Est Cr Clr Drug Dosing Est GFR ( Amer) ml/min Est GFR (Non-Af Amer) ml/min BUN/Creatinine Ratio (10-20) Glucose (70-99(Fasting)) mg/dl Lactate (0.4-2.0) mmol/L Calcium (8.5-10.1) mg/dl Magnesium (1.7-2.4) mg/dl Total Bilirubin (0.2-1.0) mg/dl AST (13-39) U/L ALT (7-52) U/L Alkaline Phosphatase (34-104) U/L Troponin I High Sens (0-14) pg/ml Total Protein (6.0-8.3) gm/dl Albumin (3.4-5.0) gm/dl Globulin (2.5-4.0) gm/dl Albumin/Globulin Ratio (0.9-2) Procalcitonin (0-0.5) ng/ml TSH (0.300-4.500) uIu/ml Free T4 (0.61-1.60) ng/dl Urine Color Urine Appearance (Clear) Urine pH (4.5-7.5) Ur Specific [place] (1.000-1.030) Urine Protein (Negative) Urine Glucose (UA) (Negative) Urine Ketones (Negative) Urine Blood (Negative) Urine Nitrite (Negative) Urine Bilirubin (Negative) Urine Urobilinogen (Negative) Ur Leukocyte Esterase (Negative) Urine WBC (Auto) (0-5) /hpf Urine RBC (Auto) (0-4) /hpf U Hyaline Cast (Auto) (0-5) /lpf U Epithel Cells (Auto) (0-5) /lpf Urine Bacteria (Auto) (Negative) Urine Yeast Urine Osmolality (500-800) mOsm/kg Ur Random Creatinine mg/dl Urine Sodium mmol/L Urine Potassium mmol/L Urine Chloride mmol/L SARS-CoV-2, RNA, NAAT (NEGATIVE) 01/30/22 01/30/22 01/30/22 Range/Units 08:52 08:52 08:52 WBC (4.8-10.8) K/ul RBC (3.93-5.22) M/uL Hgb (12.0-16.0) g/dl Hct (34.1-44.9) % MCV (80.0-100.0) fL MCH (25.0-34.0) pg MCHC (32.0-36.0) g/dL RDW Std Deviation (36.4-46.3) fL RDW Coeff of Tatyana (11.5-14.5) % Plt Count (130-400) K/uL MPV (9.4-12.3) fL Immature Gran % (Auto) % Neut % (Auto) % Lymph % (Auto) % [place] % (Auto) % Eos % (Auto) % Baso % (Auto) % Neut # (Auto) (1.4-6.5) K/uL Lymph # (Auto) (1.2-3.4) K/uL [place] # (Auto) (0.24-0.82) K/uL Eos # (Auto) (0-0.50) K/uL Baso # (Auto) (0-0.2) K/uL Immature Gran # (Auto) (0.00-0.02) K/uL Absolute Nucleated RBC (0-0) K/uL Nucleated RBC % (auto) % Polychromasia PT (9.0-12.0) Seconds INR (0.9-1.1) VBG pH (7.36-7.41) VBG pCO2 (38-50) mmHg VBG pO2 mmHg VBG HCO3 mmol/L VBG O2 Saturation % VBG Base Excess mEq/L Sodium 148 H (136-145) mmol/L Potassium 4.4 (3.5-5.1) mmol/L Chloride 98 (98-107) mmol/L Carbon Dioxide 43 H* (21-32) mmol/L Anion Gap 7 (3-11) BUN 38 H (6-23) mg/dl Creatinine 0.98 (0.6-1.2) mg/dl Est Cr Clr Drug Dosing Not Reportable Est GFR ( Amer) 65.4 ml/min Est GFR (Non-Af Amer) 56.4 ml/min BUN/Creatinine Ratio 38.8 H (10-20) Glucose 150 H (70-99(Fasting)) mg/dl Lactate 1.3 (0.4-2.0) mmol/L Calcium 10.0 (8.5-10.1) mg/dl Magnesium 2.4 (1.7-2.4) mg/dl Total Bilirubin 1.2 H (0.2-1.0) mg/dl AST 17 (13-39) U/L ALT 9 (7-52) U/L Alkaline Phosphatase 103 (34-104) U/L Troponin I High Sens 65.0 H* (0-14) pg/ml Total Protein 6.7 (6.0-8.3) gm/dl Albumin 3.6 (3.4-5.0) gm/dl Globulin 3.1 (2.5-4.0) gm/dl Albumin/Globulin Ratio 1.2 (0.9-2) Procalcitonin (0-0.5) ng/ml TSH 5.110 H (0.300-4.500) uIu/ml Free T4 1.17 (0.61-1.60) ng/dl Urine Color Urine Appearance (Clear) Urine pH (4.5-7.5) Ur Specific [place] (1.000-1.030) Urine Protein (Negative) Urine Glucose (UA) (Negative) Urine Ketones (Negative) Urine Blood (Negative) Urine Nitrite (Negative) Urine Bilirubin (Negative) Urine Urobilinogen (Negative) Ur Leukocyte Esterase (Negative) Urine WBC (Auto) (0-5) /hpf Urine RBC (Auto) (0-4) /hpf U Hyaline Cast (Auto) (0-5) /lpf U Epithel Cells (Auto) (0-5) /lpf Urine Bacteria (Auto) (Negative) Urine Yeast Urine Osmolality (500-800) mOsm/kg Ur Random Creatinine mg/dl Urine Sodium mmol/L Urine Potassium mmol/L Urine Chloride mmol/L SARS-CoV-2, RNA, NAAT (NEGATIVE) 01/30/22 01/30/22 01/30/22 Range/Units 08:52 09:34 09:34 WBC (4.8-10.8) K/ul RBC (3.93-5.22) M/uL Hgb (12.0-16.0) g/dl Hct (34.1-44.9) % MCV (80.0-100.0) fL MCH (25.0-34.0) pg MCHC (32.0-36.0) g/dL RDW Std Deviation (36.4-46.3) fL RDW Coeff of Tatyana (11.5-14.5) % Plt Count (130-400) K/uL MPV (9.4-12.3) fL Immature Gran % (Auto) % Neut % (Auto) % Lymph % (Auto) % [place] % (Auto) % Eos % (Auto) % Baso % (Auto) % Neut # (Auto) (1.4-6.5) K/uL Lymph # (Auto) (1.2-3.4) K/uL [place] # (Auto) (0.24-0.82) K/uL Eos # (Auto) (0-0.50) K/uL Baso # (Auto) (0-0.2) K/uL Immature Gran # (Auto) (0.00-0.02) K/uL Absolute Nucleated RBC (0-0) K/uL Nucleated RBC % (auto) % Polychromasia PT (9.0-12.0) Seconds INR (0.9-1.1) VBG pH (7.36-7.41) VBG pCO2 (38-50) mmHg VBG pO2 mmHg VBG HCO3 mmol/L VBG O2 Saturation % VBG Base Excess mEq/L Sodium (136-145) mmol/L Potassium (3.5-5.1) mmol/L Chloride (98-107) mmol/L Carbon Dioxide (21-32) mmol/L Anion Gap (3-11) BUN (6-23) mg/dl Creatinine (0.6-1.2) mg/dl Est Cr Clr Drug Dosing Est GFR ( Amer) ml/min Est GFR (Non-Af Amer) ml/min BUN/Creatinine Ratio (10-20) Glucose (70-99(Fasting)) mg/dl Lactate (0.4-2.0) mmol/L Calcium (8.5-10.1) mg/dl Magnesium (1.7-2.4) mg/dl Total Bilirubin (0.2-1.0) mg/dl AST (13-39) U/L ALT (7-52) U/L Alkaline Phosphatase (34-104) U/L Troponin I High Sens (0-14) pg/ml Total Protein (6.0-8.3) gm/dl Albumin (3.4-5.0) gm/dl Globulin (2.5-4.0) gm/dl Albumin/Globulin Ratio (0.9-2) Procalcitonin 0.05 (0-0.5) ng/ml TSH (0.300-4.500) uIu/ml Free T4 (0.61-1.60) ng/dl Urine Color Dark Yellow Urine Appearance Turbid A (Clear) Urine pH 7.0 (4.5-7.5) Ur Specific [place] 1.014 (1.000-1.030) Urine Protein 3+ H (Negative) Urine Glucose (UA) Negative (Negative) Urine Ketones Negative (Negative) Urine Blood 3+ H (Negative) Urine Nitrite Negative (Negative) Urine Bilirubin Negative (Negative) Urine Urobilinogen Negative (Negative) Ur Leukocyte Esterase 3+ H (Negative) Urine WBC (Auto) >30 H (0-5) /hpf Urine RBC (Auto) >30 H (0-4) /hpf U Hyaline Cast (Auto) 1-5 (0-5) /lpf U Epithel Cells (Auto) 5-10 H (0-5) /lpf Urine Bacteria (Auto) 4+ H (Negative) Urine Yeast Not Reportable Urine Osmolality 367 L (500-800) mOsm/kg Ur Random Creatinine mg/dl Urine Sodium mmol/L Urine Potassium mmol/L Urine Chloride mmol/L SARS-CoV-2, RNA, NAAT (NEGATIVE) 01/30/22 01/30/22 Range/Units 09:34 10:23 WBC (4.8-10.8) K/ul RBC (3.93-5.22) M/uL Hgb (12.0-16.0) g/dl Hct (34.1-44.9) % MCV (80.0-100.0) fL MCH (25.0-34.0) pg MCHC (32.0-36.0) g/dL RDW Std Deviation (36.4-46.3) fL RDW Coeff of Tatyana (11.5-14.5) % Plt Count (130-400) K/uL MPV (9.4-12.3) fL Immature Gran % (Auto) % Neut % (Auto) % Lymph % (Auto) % [place] % (Auto) % Eos % (Auto) % Baso % (Auto) % Neut # (Auto) (1.4-6.5) K/uL Lymph # (Auto) (1.2-3.4) K/uL [place] # (Auto) (0.24-0.82) K/uL Eos # (Auto) (0-0.50) K/uL Baso # (Auto) (0-0.2) K/uL Immature Gran # (Auto) (0.00-0.02) K/uL Absolute Nucleated RBC (0-0) K/uL Nucleated RBC % (auto) % Polychromasia PT (9.0-12.0) Seconds INR (0.9-1.1) VBG pH (7.36-7.41) VBG pCO2 (38-50) mmHg VBG pO2 mmHg VBG HCO3 mmol/L VBG O2 Saturation % VBG Base Excess mEq/L Sodium (136-145) mmol/L Potassium (3.5-5.1) mmol/L Chloride (98-107) mmol/L Carbon Dioxide (21-32) mmol/L Anion Gap (3-11) BUN (6-23) mg/dl Creatinine (0.6-1.2) mg/dl Est Cr Clr Drug Dosing Est GFR ( Amer) ml/min Est GFR (Non-Af Amer) ml/min BUN/Creatinine Ratio (10-20) Glucose (70-99(Fasting)) mg/dl Lactate (0.4-2.0) mmol/L Calcium (8.5-10.1) mg/dl Magnesium (1.7-2.4) mg/dl Total Bilirubin (0.2-1.0) mg/dl AST (13-39) U/L ALT (7-52) U/L Alkaline Phosphatase (34-104) U/L Troponin I High Sens (0-14) pg/ml Total Protein (6.0-8.3) gm/dl Albumin (3.4-5.0) gm/dl Globulin (2.5-4.0) gm/dl Albumin/Globulin Ratio (0.9-2) Procalcitonin (0-0.5) ng/ml TSH (0.300-4.500) uIu/ml Free T4 (0.61-1.60) ng/dl Urine Color Urine Appearance (Clear) Urine pH (4.5-7.5) Ur Specific [place] (1.000-1.030) Urine Protein (Negative) Urine Glucose (UA) (Negative) Urine Ketones (Negative) Urine Blood (Negative) Urine Nitrite (Negative) Urine Bilirubin (Negative) Urine Urobilinogen (Negative) Ur Leukocyte Esterase (Negative) Urine WBC (Auto) (0-5) /hpf Urine RBC (Auto) (0-4) /hpf U Hyaline Cast (Auto) (0-5) /lpf U Epithel Cells (Auto) (0-5) /lpf Urine Bacteria (Auto) (Negative) Urine Yeast Urine Osmolality (500-800) mOsm/kg Ur Random Creatinine 46.2 mg/dl Urine Sodium 67 mmol/L Urine Potassium 32.8 mmol/L Urine Chloride 50 mmol/L SARS-CoV-2, RNA, NAAT NEGATIVE (NEGATIVE) Administered Medications Metoprolol Tartrate (Metoprolol Tartrate 1 Mg/Ml Vial) 5 mg IV Q6 FIDEL Stop: 03/01/22 11:59 Last Admin: 01/30/22 12:23 Dose: 5 mg Documented By: JAZMINE Discontinued Medications Furosemide (Furosemide 40 Mg/4 Ml Vial) 40 mg IV NOW STA Stop: 01/30/22 11:28 Last Admin: 01/30/22 12:22 Dose: 40 mg Documented By: JAZMINE Ertapenem (Invanz) 10 mls @ 2 mls/min IV NOW STA Stop: 01/30/22 09:44 Last Admin: 01/30/22 10:16 Dose: 2 mls/min Documented By: JAZMINE Imaging Data Radiologist's Impression: Chest X-Ray 01/30/22 08:35 SINGLE VIEW CHEST CLINICAL HISTORY: Generalized weakness. FINDINGS: An AP, portable, upright chest radiograph is compared to study dated 09/28/2021. The examination is degraded by portable technique and apical lordotic positioning. The heart is enlarged noting atherosclerotic calcification of the thoracic aorta. There is pulmonary vascular congestion. Bilateral airspace opacities likely represent pulmonary edema. There are small pleural effusions with dependent consolidation. No pneumothorax is seen. The skeletal structures are osteopenic. The bony thorax is grossly intact. A right shoulder arthroplasty is in place. Advanced arthritic change is seen in the left shoulder. IMPRESSION: 1. Cardiomegaly with evidence of congestive failure and pulmonary edema. 2. Small pleural effusions with dependent consolidation. ACT 112: Negative or not required by law. Electronically signed by: Devin Marin M.D. 01/30/2022 10:[address] 01/30/22 08:35 CT SCAN OF THE BRAIN WITHOUT IV CONTRAST CLINICAL HISTORY: Change in mental status COMPARISON STUDY: CT of the brain dated 09/27/2021. TECHNIQUE: Unenhanced axial CT scan of the brain is performed from the vertex to the skull base. A dose lowering technique was utilized adhering to the principles of ALARA. CT DOSE: 537.48 mGy.cm FINDINGS: Brain parenchyma: A small focus of left frontal encephalomalacia is unchanged and consistent with a remote insult. There is age-related involutional change noting mild subcortical and periventricular microangiopathic disease. There is no hemorrhage, mass effect, or evidence of acute territorial ischemia by CT criteria. Gonzales-white matter differentiation is preserved. No extra-axial fluid collection is seen. Ventricles, sulci, cisterns: Prominent secondary to involutional change. Intracranial vasculature: There is atherosclerotic calcification of the cavernous carotid and vertebral arteries. Calvarium: There is postoperative change from left-sided craniotomy. Sinuses and mastoids: There is trace fluid in left sphenoid sinus. The remaining visualized paranasal sinuses are clear. The mastoid air cells are well pneumatized. Cerumen is noted in the external auditory canals. Orbits: The bony orbits are grossly intact. There are bilateral ocular lens implants. IMPRESSION: Postoperative findings as above with no hemorrhage, mass effect, or evidence of acute territorial ischemia by CT criteria. ACT 112: Negative or not required by law. Electronically signed by: Devin Marin M.D. 01/30/2022 10:01 AM Discharge Plan Visit Data Chief Complaint: Confusion Stated Complaint: decreased mental status ED Provider: Jeremías Rausch Discharge Problem: AMS (altered mental status), Acute UTI, Respiratory failure with hypercapnia, Acute metabolic encephalopathy Patient Disposition: Being Evaluated by Hospitalist Discharge Instructions Interventions: ED Discharge Assessment Last Done: 01/30/22 13:40
[2022-01-30 09:12] LABS: HCO3 VBG 47 mmol/L; Oxygen Saturation VBG 69.8 %; PCO2 VBG 83 mmHg (38-50); PO2 VBG 46 mmHg; pH VBG 7.36 (7.36-7.41)
[2022-01-30 09:19] LABS: Hematocrit (blood only) 45.7 % (34.1-44.9); Mean Corpuscular Hemoglobin 30.4 pg (25.0-34.0); Mean Corpuscular Hgb Conc 28.4 g/dL (32.0-36.0); Mean Platelet Volume 10.7 fL (9.4-12.3); Nucleated RBC # (auto) 0.02 K/uL (0-0); Nucleated RBC % (auto) 0.3 %; Platelet Count 173 K/uL (130-400); RDW Coefficient of Variation 17.3 % (11.5-14.5); Red Blood Count 4.27 M/uL (3.93-5.22)
[2022-01-30 09:20] LABS: Basophils # (auto) 0.01 K/uL (0-0.2); Basophils % (auto) 0.1 %; Eosinophils # (auto) 0.01 K/uL (0-0.50); Eosinophils % (auto) 0.1 %; Immature Granulocytes # (auto) 0.08 K/uL (0.00-0.02); Immature Granulocytes % (auto) 1.2 %; Lymphocytes # (auto) 1.25 K/uL (1.2-3.4); Lymphocytes % (auto) 18.7 %; Monocytes # (auto) 0.67 K/uL (0.24-0.82); Neutrophils # (auto) 4.68 K/uL (1.4-6.5); Neutrophils % (auto) 69.9 %; Polychromasia 1+
[2022-01-30 09:21] LABS: Prothrombin Time 39.6 Seconds (9.0-12.0)
[2022-01-30 09:33] LABS: Alanine Aminotransferase 9 U/L (7-52); Albumin Globulin Ratio 1.2 (0.9-2); Albumin Level 3.6 gm/dl (3.4-5.0); Alkaline Phosphatase 103 U/L (34-104); Anion Gap 7 (3-11); Aspartate Aminotransferase 17 U/L (13-39); BUN Creatinine Ratio 38.8 (10-20); Bilirubin,Total 1.2 mg/dl (0.2-1.0); Blood Urea Nitrogen 38 mg/dl (6-23); Carbon Dioxide 43 mmol/L (21-32); Chloride 98 mmol/L (98-107); Est GFR (African American) 65.4 ml/min; Est GFR (Non-African American) 56.4 ml/min; Globulin 3.1 gm/dl (2.5-4.0); Glucose 150 mg/dl (70-99(Fasting)); Magnesium 2.4 mg/dl (1.7-2.4); Potassium 4.4 mmol/L (3.5-5.1); Sodium 148 mmol/L (136-145); Total Protein 6.7 gm/dl (6.0-8.3)
[2022-01-30] MEDS ORDERED: ERTAPENEM SODIUM 10 ML IV STA (09:40)
[2022-01-30 09:49] LABS: Appearance Urine Turbid (Clear); Bacteria Urine Automated 4+ (Negative); Bilirubin Urine Negative (Negative); Blood Urine 3+ (Negative); Color Urine Dark Yellow; Glucose Urine UA Negative (Negative); Ketones Urine Negative (Negative); Leukocyte Esterase Urine 3+ (Negative); Nitrite Urine Negative (Negative); Protein Urine 3+ (Negative); RBC Urine Automated >30 /hpf (0-4); Specific Gravity Urine 1.014 (1.000-1.030); Urobilinogen Urine Negative (Negative); WBC Urine Automated >30 /hpf (0-5)
[2022-01-30 09:54] LABS: Thyroid Stimulating Hormone 5.11 uIu/ml (0.300-4.500)
--- NOTE | 2022-01-30 10:04 | CT Scan Report ---
CT SCAN OF THE BRAIN WITHOUT IV CONTRAST CLINICAL HISTORY: Change in mental status COMPARISON STUDY: CT of the brain dated 09/27/2021. TECHNIQUE: Unenhanced axial CT scan of the brain is performed from the vertex to the skull base. A do se lowering technique was utilized adhering to the principles of ALARA. CT DOSE: 537.48 mGy.cm FINDINGS: Brain parenchyma: A small focus of left frontal encephalomalacia is unchanged and consistent with a r emote insult. There is age-related involutional change noting mild subcortical and periventricular mi croangiopathic disease. There is no hemorrhage, mass effect, or evidence of acute territorial ischemi a by CT criteria. Gonzales-white matter differentiation is preserved. No extra-axial fluid collection is seen. Ventricles, sulci, cisterns: Prominent secondary to involutional change. Intracranial vasculature: There is atherosclerotic calcification of the cavernous carotid and vertebr al arteries. Calvarium: There is postoperative change from left-sided craniotomy. Sinuses and mastoids: There is trace fluid in left sphenoid sinus. The remaining visualized paranasal sinuses are clear. The mastoid air cells are well pneumatized. Cerumen is noted in the external eliot tory canals. Orbits: The bony orbits are grossly intact. There are bilateral ocular lens implants. IMPRESSION: Postoperative findings as above with no hemorrhage, mass effect, or evidence of acute ter ritorial ischemia by CT criteria. ACT 112: Negative or not required by law. Electronically signed by: Devin Marin M.D. 01/30/2022 10:01 AM
--- NOTE | 2022-01-30 10:14 | History & Physical Report ---
Date of Service January 30, 2022 Assessment & Plan (1) Respiratory failure with hypercapnia: Plan: - vBG 7.36/83/46, patient presented obtunded likely due to both hypercapnia on presentation after refusing BIPAP several nights this week, as well as UTI infection. - Respiratory acidosis appears compensated. - Continue on BIPAP for now with Q6h vBG, monitor for respiratory alkalosis. - Will gradually wean patient to her home O2 requirement of 3L NC. - NPO for now until alert enough for medications. - Patient appears volume overloaded on exam, CXR with pulmonary vascular congestion, therefore will give 40 IV Lasix now. (2) Acute metabolic encephalopathy: Plan: - Per sisters at bedside, patient has been off her baseline since at least Tuesday and refusing BiPAP since then. CT head not indicative of stroke, this is most likely stemming from hypoxia/hypercapnia/UTI. - Checking ammonia level. - BIPAP for respiratory failure, Ertapenem daily for UTI. - Patient starting to become more responsive now--pulling at BIPAP machine, opening eyes, moving arms. (3) Acute UTI: Plan: - UA with bacteria, > 30 WBCs, leuk esterase. Based on previous cultures, she was started empirically on Ertapenem in ED. She has grown out proteus mirabilis, E coli ESBL, and klebsiella on cultures over the pas year, with multiple resistance patterns, but all susceptible to ertapenem, therefore will continue this for now and follow blood, urine cultures. - Urinary cath in place. - WBC, lactate, procalcitonin all WNL. (4) Elevated troponin: Plan: - 65.0, likely demand ischemia due to acute respiratory failure, infection. Will trend troponin, EKG with any chest pain, obtain echo now. - Echo from September: Normal LV systolic function, mild LVH, b/l atrial dilation, RVSP 5060, EF 55 to 60% (5) Hypernatremia: Plan: - 148, however appears volume overloaded, has been receiving 80 mg PO Lasix daily. - Serum and urine osm ordered, as well as urine electrolytes ordered, pending. - Echo as above to assess for diastolic dysfunction. (6) Atrial fibrillation: Plan: - In A. fib., rate controlled. - INR supratherapeutic today 4.0, therefore holding Coumadin for now. Coumadin was recently increased from 5 mg to 7.5 mg, last dose documented as given at [facility] was 7.5 mg on Thursday 01/25 - While Holding p.o. meds, will convert to IV metoprolol 5 mg every 6 hours to avoid beta-kadi withdrawal. (7) History of DVT (deep vein thrombosis): Plan: - 2+ years ago after ankle fracture, on Coumadin. - Holding this for now d/t supratherapeutic INR 4.0 (8) GERD (gastroesophageal reflux disease): Plan: - Convert p.o. Pepcid and Protonix to IV formulation. (9) COPD (chronic obstructive pulmonary disease): Plan: - History of, with a continuous O2 requirement of 3 L NC/BiPAP at night, no bronchodilators. - Treating respiratory failure as above. (10) Hypertension: Plan: - Convert metoprolol from p.o. to IV 5 mg every 6h. Plan - Admit to PCU. - SCDs for VTE PPx. Defer home Coumadin for now due to elevated INR. - DNR/DNI, her center care documentation and discussion with sisters. History of Present Illness Chief Complaint: Unresponsive this morning at [facility] Primary Care Provider: [facility] Valorie Riggins is a 76-year-old female with past medical history significant for COPD on 3 NC at all times, breast cancer s/p right lobectomy, benign brain tumor s/p craniotomy, A. fib, hypertension, history of DVT, lumbar spinal stenosis, Raynaud's who presents today from [facility] unresponsive. Yesterday, Per sister reports she was on her self, was talking about joining the [employer] and going to boot camp. Currently has no gluteal region refused to wear her BiPAP and this morning was unresponsive for staff. Upon presentation to ED, she is on BiPAP, however unresponsive and cannot provide history. She is hemodynamically stable, moderately hypertensive 148/96, came in on 6 L NC reportedly had not been hypoxic upon arrival, now on BiPAP with SPO2 >95%, afebrile. VBG 7.2 /46/47. Mildly elevated troponin 65.0, T bili mildly el evated 1.2, renal function at baseline, sodium 148, otherwise electrolytes within normal limits. No leukocytosis, procalcitonin and lactate within normal limits, however UA appears grossly infected with 4+ bacteria, >30 WBCs, 3+ leukoesterase, with blood and protein. TSH mildly elevated 5.110, free T4 pending. Head CT without evidence of acute process, CXR showed cardiomegaly with pulmonary vascular congestion small pleural effusions with dependent consolidation. Allergies Allergy/AdvReac Type Severity Reaction Status Date / Time cephalexin Allergy Severe HIVES Verified 12/15/21 11:42 strawberry Allergy Severe hives Verified 12/15/21 11:42 sulfamethoxazole Allergy Mild Rash Verified 12/15/21 11:42 [From Bactrim] trimethoprim [From Bactrim] Allergy Mild Rash Verified 12/15/21 11:42 Unclassified Drugs Allergy Mild DIAL SOAP Uncoded 12/15/21 11:42 - RASH Home Medications Medication Instructions Recorded Confirmed Type famotidine 20 mg tablet 20 mg PO BID 06/12/19 01/30/22 History magnesium hydroxide 400 mg/5 mL 30 ml PO DIRECTED PRN 06/12/19 01/30/22 History oral suspension (Milk of Magnesia) Constipation sennosides 8.6 mg tablet (senna) 8.6 mg PO DAILY PRN Constipation 06/12/19 01/30/22 History Lactobacillus acidophilus 0 mg PO DAILY 07/03/19 01/30/22 History artifi.tears(hypromellose)(PF) 0.3 1 drops OPB BID 07/03/19 01/30/22 History % eye drops tizanidine 4 mg capsule 4 mg PO Q8H PRN Muscle Pain ##0 07/03/19 01/30/22 History ferrous sulfate 325 mg (65 mg 325 mg PO QAM 10/10/19 01/30/22 History iron) tablet,delayed release acetaminophen 325 mg tablet 650 mg PO Q6 PRN Pain/fever 12/07/19 01/30/22 History (Tylenol) calcium carbonate 500 mg-vitamin 1 tab PO BID 12/07/19 01/30/22 History D3 5 mcg (200 unit) tablet (Calcium 500 + D) gabapentin 400 mg capsule 400 mg PO TID 08/12/20 01/30/22 History loratadine 10 mg tablet (Claritin) 10 mg PO QAM 08/12/20 01/30/22 History oxybutynin chloride 5 mg 5 mg PO DAILY #30 tabs 05/12/21 08/20/22 Rx tablet,extended release 24 hr cyanocobalamin (vitamin B-12) 1,000 mcg PO DAILY 09/28/21 01/30/22 History 1,000 mcg tablet (Vitamin B-12) diclofenac sodium 1 % topical gel 2 g topical QID 09/28/21 01/30/22 History folic acid 1 mg tablet 1 mg PO DAILY 09/28/21 01/30/22 History furosemide 40 mg tablet 80 mg PO BID 09/28/21 01/30/22 History melatonin 5 mg tablet 5 mg PO HS 09/28/21 01/30/22 History menthol 0.44 %-zinc oxide 20.6 % 1 applic topical .Q SHIFT PRN .. 09/28/21 01/30/22 History topical ointment (Calmoseptine) multivitamin 1 tab PO DAILY 09/28/21 01/30/22 History pantoprazole 40 mg tablet,delayed 40 mg PO BID 09/28/21 01/30/22 History release polyethylene glycol 3350 17 gram 17 g PO DAILY 09/28/21 01/30/22 History oral powder packet (Miralax) ropinirole 0.25 mg tablet 0.25 mg PO HS PRN Constipation 09/28/21 01/30/22 History sennosides 8.6 mg-docusate sodium 1 tab-cap PO BID 09/28/21 01/30/22 History 50 mg tablet (Senna-S) vibegron 75 mg tablet (Gemtesa) 75 mg PO DAILY 09/28/21 01/30/22 History ipratropium 0.5 mg-albuterol 3 mg 3 ml NEB Q4R PRN shortness of 10/05/21 01/30/22 Rx (2.5 mg base)/3 mL nebulization breath or wheezing #100 mL soln metoprolol tartrate 25 mg tablet 25 mg PO Q12 #30 tabs 10/05/21 01/30/22 Rx potassium chloride 20 mEq 20 meq PO DAILY 01/30/22 01/30/22 History tablet,extended release(part/cryst) warfarin 5 mg tablet 7.5 mg PO DAILY 01/30/22 01/30/22 History Past Med/Surg History Medical History Acute alteration in mental status Acute UTI Anemia Anosmia 2/2 resection of benign brain tumor Arthritis Atrial fibrillation dx few years ago - PCP monitors - on ASA, BB. Not on additional anticoagulation due to fall risk and prior meningioma. Chronic constipation Cognitive communication deficit COPD (chronic obstructive pulmonary disease) Dizziness intermittent; h/o recent falls; has been WC bound since March 2019, now resides in [facility] due to immobility. Elevated troponin GERD (gastroesophageal reflux disease) Gross hematuria Hearing deficit B/L ROBERT Heart valve regurgitation Mild to moderate MR/TR per echo 03/2019 [place] History of benign brain tumor s/p removal 2017 History of breast cancer s/p left breast lumpectomy + radiation History of cellulitis RLE History of COVID-19 + 04/2020 PER NURSING [employer]/PAST History of DVT (deep vein thrombosis) 20+ years ago/after ankle fx [place] (hard of hearing) Bilateral Hearing Aids Hyperlipidemia Hypertension Immobility CASEY LIFT, Severe LE pain and weakness; possibly 2/2 spinal stenosis or hip pain Lymphedema Meningioma Mixed stress and urge urinary incontinence Morbid obesity Opiate overdose Osteoarthritis Peripheral neuropathy Raynauds disease Seizure sz first episode 2014, discovered brain tumor; additional sz S/P BRAIN TUMOR REMOVAL IN 2017; last seizure 2017. No longer on seizure medications. Spinal stenosis with neuropathy Stress incontinence in female Surgical History H/O hernia repair H/O Spinal surgery History of ankle fusion RIGHT History of bladder surgery TURBT (11/26/19): LMA#4, atraumatic at [facility] History of breast biopsy History of craniotomy HX OF BENIGN TUMOR REMOVAL IN 2017-TEMPORAL MENINGIOMA History of laminectomy LUMBAR History of lumpectomy of left breast Left breast lumpectomy with needle localization (02/22/18): LMA#4 at [facility] -- LUE LIMB RESTRICTION History of mastectomy PARTIAL /XRT FINISHED 04/2018 History of ovarian cystectomy History of repair of hiatal hernia History of total knee replacement BILATERAL History of total shoulder replacement RIGHT S/P IVC filter DUE TO LEFT LOWER EXTREMITY DVT'S WITHOUT CLEAR ETIOLOGY 10/12/2019-OFF ANTICOAGULANTS CURRENTLY S/P PICC central line placement 04/2019 for cellulitis of R hip Family History Mother , Passed age 62 of MD Diabetes Coronary heart disease Hypertension Stroke Father , Passed age 68 of accident (fell down steps) No problems noted. Brother Family history of diabetes mellitus Diabetes Brother No problems noted. Sister Slow to wake up after anesthesia twin sister Breast cancer Twin - Left Breast - Lumpectomy/Chemo/RXT Sister No problems noted. Sister No problems noted. Sister No problems noted. Sister No problems noted. Son Sarcoidosis Son No problems noted. Daughter No problems noted. Grandmother (Paternal) Family history of diabetes mellitus Grandmother (Maternal) Family history of diabetes mellitus Mother Family history of diabetes mellitus Social History Smoking Status: Unknown if ever smoked Tobacco Type: Cigarettes Years Smoked: 2; Cigarettes Per Day: HX OF SOCIAL CIGARETTE, QUIT 25 YEARS AGO.; Hx Alcohol Use: No Hx Substance Use: No (pt unwilling to answer) Preferred Language: Japanese Communication Ability: Unable Visual Impairment: Limited Hearing Ability: Use of Hearing Aid Chief Lending Officer Required: Video and No Beliefs That Will Affect Care: None marital status: Current Living Situation: Personal Care Facility Current Living Situation Comment: [facility] 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 fib; no murmur, no JVD, normal peripheral pulses, good capillary refill Abdominal: NABS x 4 quadrants, soft, nontender to palpation, no rebound, guarding or tenderness Extremities: Bilateral lower extremity pitting edema, with bandage on left fo ot, with chronic skin changes, otherwise without open wounds, erythema, purulent discharge Psych: Unable to assess due to reduced consciousness Neuro: Unable to assess due to reduced consciousness, does move both hands and arms, opens eyes occasionally Skin: no rash or erythema Results & Data Results & Data ([facility]) Vital Signs (Past 12 Hours) Vital Signs Temp Pulse Resp BP Pulse Ox O2 Del Method O2 Flow Rate 01/30/22 09:04 64 21 96 01/30/22 09:15 96 BiPAP 6 01/30/22 08:39 35.8 C L 72 18 148/96 H 97 Nasal Cannula 6 FiO2 01/30/22 09:04 40 01/30/22 09:15 01/30/22 08:39 Laboratory Results Abnormal lab results 01/30/22 01/30/22 01/30/22 Range/Units 08:52 08:52 08:52 Hct 45.7 H (34.1-44.9) % MCV 107.0 H (80.0-100.0) fL MCHC 28.4 L (32.0-36.0) g/dL RDW Std Deviation 67.0 H (36.4-46.3) fL RDW Coeff of Tatyana 17.3 H (11.5-14.5) % Immature Gran # (Auto) 0.08 H (0.00-0.02) K/uL Absolute Nucleated RBC 0.02 H (0-0) K/uL PT 39.6 H (9.0-12.0) Seconds INR 4.0 H (0.9-1.1) VBG pCO2 83 H (38-50) mmHg Sodium (136-145) mmol/L Carbon Dioxide (21-32) mmol/L BUN (6-23) mg/dl BUN/Creatinine Ratio (10-20) Glucose (70-99(Fasting)) mg/dl Total Bilirubin (0.2-1.0) mg/dl Troponin I High Sens (0-14) pg/ml TSH (0.300-4.500) uIu/ml Urine Appearance (Clear) Urine Protein (Negative) Urine Blood (Negative) Ur Leukocyte Esterase (Negative) Urine WBC (Auto) (0-5) /hpf Urine RBC (Auto) (0-4) /hpf U Epithel Cells (Auto) (0-5) /lpf Urine Bacteria (Auto) (Negative) 01/30/22 01/30/22 01/30/22 Range/Units 08:52 08:52 09:34 Hct (34.1-44.9) % MCV (80.0-100.0) fL MCHC (32.0-36.0) g/dL RDW Std Deviation (36.4-46.3) fL RDW Coeff of Tatyana (11.5-14.5) % Immature Gran # (Auto) (0.00-0.02) K/uL Absolute Nucleated RBC (0-0) K/uL PT (9.0-12.0) Seconds INR (0.9-1.1) VBG pCO2 (38-50) mmHg Sodium 148 H (136-145) mmol/L Carbon Dioxide 43 H* (21-32) mmol/L BUN 38 H (6-23) mg/dl BUN/Creatinine Ratio 38.8 H (10-20) Glucose 150 H (70-99(Fasting)) mg/dl Total Bilirubin 1.2 H (0.2-1.0) mg/dl Troponin I High Sens 65.0 H* (0-14) pg/ml TSH 5.110 H (0.300-4.500) uIu/ml Urine Appearance Turbid A (Clear) Urine Protein 3+ H (Negative) Urine Blood 3+ H (Negative) Ur Leukocyte Esterase 3+ H (Negative) Urine WBC (Auto) >30 H (0-5) /hpf Urine RBC (Auto) >30 H (0-4) /hpf U Epithel Cells (Auto) 5-10 H (0-5) /lpf Urine Bacteria (Auto) 4+ H (Negative) Diagnostic Findings Chest X-Ray 01/30/22 08:35 SINGLE VIEW CHEST CLINICAL HISTORY: Generalized weakness. FINDINGS: An AP, portable, upright chest radiograph is compared to study dated 09/28/2021. The examination is degraded by portable technique and apical lordotic positioning. The heart is enlarged noting atherosclerotic calcification of the thoracic aorta. There is pulmonary vascular congestion. Bilateral airspace opacities likely represent pulmonary edema. There are small pleural effusions with dependent consolidation. No pneumothorax is seen. The skeletal structures are osteopenic. The bony thorax is grossly intact. A right shoulder arthroplasty is in place. Advanced arthritic change is seen in the left shoulder. IMPRESSION: 1. Cardiomegaly with evidence of congestive failure and pulmonary edema. 2. Small pleural effusions with dependent consolidation. ACT 112: Negative or not required by law. Electronically signed by: Devin Marin M.D. 01/30/2022 10:[address] 01/30/22 08:35 CT SCAN OF THE BRAIN WITHOUT IV CONTRAST CLINICAL HISTORY: Change in mental status COMPARISON STUDY: CT of the brain dated 09/27/2021. TECHNIQUE: Unenhanced axial CT scan of the brain is performed from the vertex to the skull base. A dose lowering technique was utilized adhering to the principl es of ALA. CT DOSE: 537.48 mGy.cm FINDINGS: Brain parenchyma: A small focus of left frontal encephalomalacia is unchanged and consistent with a remote insult. There is age-related involutional change noting mild subcortical and periventricular microangiopathic disease. There is no hemorrhage, mass effect, or evidence of acute territorial ischemia by CT criteria. Gonzales-white matter differentiation is preserved. No extra-axial fluid collection is seen. Ventricles, sulci, cisterns: Prominent secondary to involutional change. Intracranial vasculature: There is atherosclerotic calcification of the cavernous carotid and vertebral arteries. Calvarium: There is postoperative change from left-sided craniotomy. Sinuses and mastoids: There is trace fluid in left sphenoid sinus. The remaining visualized paranasal sinuses are clear. The mastoid air cells are well pneumatized. Cerumen is noted in the external auditory canals. Orbits: The bony orbits are grossly intact. There are bilateral ocular lens implants. IMPRESSION: Postoperative findings as above with no hemorrhage, mass effect, or evidence of acute territorial ischemia by CT criteria. ACT 112: Negative or not required by law. Electronically signed by: Devin Marin M.D. 01/30/2022 10:01 AM Code Status & VTE Plan Code Status DNR/DNI, per discussion with sister as well as documentation from [facility] Supervising Physician Co-Signing Physician Notes Patient seen and examined, chart reviewed, case discussed with Jewels Metzger PA-C and I agree with the assessment and plan as above except as otherwise noted Labs and images reviewed Valorie is a 76-year-old female with a history of DCIS of the left breast, pressure ulcers, DVT, chronic opioid use, meningioma, atrial fibrillation on warfarin anticoagulation, GERD, spinal stenosis, and COPD on 3 L of baseline oxygen and BiPAP as tolerated who [facility]. Was reportedly confused yesterday more than baseline, refused BiPAP overnight, and was unresponsive morning of admission. On ER initial evaluation head CT was within normal limits, PCT was normal, chest x-ray showed evidence of pulmonary edema and fluid overload, UA appeared grossly infected, and blood gas showed 7.3 /, patient with baseline compensated respiratory acidosis with a PCO2 ranging from 60s to 80s on prior admits. She was placed on empiric ertapenem for past UC with Klebsiella. On admitting evaluation patient is on BiPAP, obtunded and offers minimal meaningful history. Collateral history collected from patient's daughter who is coming to the hospital today. DNR/DNI. On as sessment patient is obviously fluid overloaded with diffuse pitting edema through the thigh, bibasilar crackles and light rales, and JVD is present although difficult to distinguish due to body habitus. Tachycardic. Patient is more alert than on arrival to ER, opens eyes affirms that she knows she is in the hospital. She denies pain, endorses some shortness of breath and that she does not like the BiPAP as it makes her feel claustrophobic but currently tolerating no recent narcotic use Altered mental status Improving at time of assessment UA grossly infected, UC pending Continue empiric ertapenem pending sensitivities No leukocytosis, sodium mildly elevated at 148, no transaminitis, ammonia pending, TSH mildly elevated with free T4 pending, lactate normal CThead without acute findings VB.36/46/47. Compensated respiratory acidosis with baseline PCO2 on review 6080s. Patient with elevated BUN/creatinine ratio and mild hyponatremia, however CXR with evidence of pleural effusion and pulmonary edema. Troponin is mildly elevated 54-65. Prior echo without wall motion abnormalities or reduced EF. Echo pended to assess for interval decrease/diastolic dysfunction. Defer additional fluids Oral medications held patient is not alert enough to swallow safely. Metoprolol 25 mg tartrate twice daily converted to IV 2.5 every 6 hours to prevent beta-kadi withdrawal COVID negative - Patient is written for fentanyl patch 37.5 mcg/h last filled 09/25/2021. Had 15-day supply at that time, no recent fill per PDMP Acute hypoxic respiratory failure 2/2 acute CHF, echo for EF/diastolic dysfunction is been Patient on Lasix 40 mg p.o. daily, - TTE 09/28/2021: LV SF normal. Mild concentric LVH. Mild left and right atrial dilation. R VSP 5060. Mild troponin elevation as noted above, follow-up echo pending as noted CXR: With evidence of volume overload, pulmonary edema Continue Lasix 40-80 mg IV daily, titrate to goal at least 1 L net output per day Creatinine 0.98 on admission History of COPD 3 L nasal cannula baseline, BiPAP as needed Continue BiPAP. Follow for alkalosis. VBG every 6 hours. Compensated respiratory acidosis as above on admission No evidence of superimposed pneumonia Continue medications as noted above A. fib on warfarin anticoagulation INR supratherapeutic, 4.0 on admission. No clinical signs of bleeding, CT head without acute bleed Metoprolol converted to IV every 6 hours for rate control/beta-kadi withdrawal while unable to tolerate p.o. Overactive bladder: Gemtesa/oxybutynin held until able to tolerate p.o. GERD: Continue PPI IV daily Macrocytosis: B12/folate pending Hypernatremia: Patient is clinically volume overloaded, serum osms pending, lasix as above DVT prophylaxis: Supratherapeutic INR, trend daily warfarin currently held. Warfarin was recently increased from 5-7.5 PG Care Time/CCT Total # of Minutes Spent Total Time Spent with Patient: Total time spent is greater than 50% in coordination of care (as documented) at patient's floor/unit and/or counseling patient: Coding Level of Care Code 15857 Initial Inpt Care Lvl 3 Diagnoses Respiratory failure with hypercapnia J96.92 Acute metabolic encephalopathy G93.41 Acute UTI N39.0 Elevated troponin R77.8 Hypernatremia E87.0 Atrial fibrillation I48.91 History of DVT (deep vein thrombosis) Z86.718 GERD (gastroesophageal reflux disease) K21.9 COPD (chronic obstructive pulmonary disease) J44.9 Hypertension I10
--- NOTE | 2022-01-30 10:18 | XRay Report ---
SINGLE VIEW CHEST CLINICAL HISTORY: Generalized weakness. FINDINGS: An AP, portable, upright chest radiograph is compared to study dated 09/28/2021. The examina tion is degraded by portable technique and apical lordotic positioning. The heart is enlarged noting atherosclerotic calcification of the thoracic aorta. There is pulmonary vascular congestion. Bilatera l airspace opacities likely represent pulmonary edema. There are small pleural effusions with depende nt consolidation. No pneumothorax is seen. The skeletal structures are osteopenic. The bony thorax is grossly intact. A right shoulder arthroplasty is in place. Advanced arthritic change is seen in the left shoulder. IMPRESSION: 1. Cardiomegaly with evidence of congestive failure and pulmonary edema. 2. Small pleural effusions with dependent consolidation. ACT 112: Negative or not required by law. Electronically signed by: Devin Marin M.D. 01/30/2022 10:17 AM
[2022-01-30 11:04] LABS: T4 Free Thyroxine 1.17 ng/dl (0.61-1.60)
[2022-01-30] MEDS ORDERED: FUROSEMIDE 40 MG/4 ML VIAL IV STA (11:27)
[2022-01-30 12:11] LABS: Creatinine Urine Random 46.2 mg/dl; Urine Potassium 32.8 mmol/L
[2022-01-30] MEDS: METOPROLOL TARTRATE 1 MG/ML VIAL IV SCH ×3 (12:23→23:37)
[2022-01-30 14:48] LABS: Base Excess VBG 20.2 mEq/L; HCO3 VBG 51 mmol/L; Oxygen Saturation VBG < 60.0 %; PCO2 VBG 90 mmHg (38-50); PO2 VBG 32 mmHg; pH VBG 7.36 (7.36-7.41)
[2022-01-30] MEDS: PANTOprazole 40 MG in SYRINGE 0 ML IV SCH (20:09)
[2022-01-31 06:31] LABS: Base Excess VBG 21.9 mEq/L; HCO3 VBG 52 mmol/L; Oxygen Saturation VBG < 60.0 %; PCO2 VBG 86 mmHg (38-50); PO2 VBG 33 mmHg; pH VBG 7.39 (7.36-7.41)
[2022-01-31] MEDS: METOPROLOL TARTRATE 1 MG/ML VIAL IV SCH ×4 (06:39→23:30)
[2022-01-31 06:51] LABS: Prothrombin Time 39.1 Seconds (9.0-12.0)
[2022-01-31 07:10] LABS: Albumin Globulin Ratio 1.2 (0.9-2); Albumin Level 3.2 gm/dl (3.4-5.0); BUN Creatinine Ratio 37.6 (10-20); Bilirubin,Total 0.7 mg/dl (0.2-1.0); Calcium 9.2 mg/dl (8.5-10.1); Creatinine Clr Calc Pharmacy 85.1 ml/min; Est GFR (African American) 77.7 ml/min; Globulin 2.6 gm/dl (2.5-4.0); Magnesium 2.3 mg/dl (1.7-2.4); Potassium 3.9 mmol/L (3.5-5.1); Total Protein 5.8 gm/dl (6.0-8.3)
[2022-01-31 07:17] LABS: Folate (Folic Acid) > 22.30 ng/ml (>5.38)
[2022-01-31 07:18] LABS: Vitamin B12 > 1500 pg/ml (180-914)
[2022-01-31 07:21] LABS: Hematocrit (blood only) 40.5 % (34.1-44.9); Hemoglobin 11.7 g/dl (12.0-16.0); Mean Corpuscular Hemoglobin 30.9 pg (25.0-34.0); Mean Corpuscular Hgb Conc 28.9 g/dL (32.0-36.0); Mean Corpuscular Volume 106.9 fL (80.0-100.0); Mean Platelet Volume 10.8 fL (9.4-12.3); Platelet Count 144 K/uL (130-400); RDW Coefficient of Variation 17.1 % (11.5-14.5); RDW Standard Deviation 66.1 fL (36.4-46.3); Red Blood Count 3.79 M/uL (3.93-5.22); White Blood Count 5.32 K/ul (4.8-10.8)
--- NOTE | 2022-01-31 07:24 | Electrocardiogram Report ---
Test Reason : Blood Pressure : / mmHG Vent. Rate : 082 BPM Atrial Rate : 062 BPM P-R Int : 000 ms QRS Dur : 084 ms QT Int : 386 ms P-R-T Axes : 000 041 204 degrees QTc Int : 450 ms Atrial fibrillation with premature ventricular or aberrantly conducted complexes Low voltage QRS Cannot rule out Anteroseptal infarct (cited on or before 30-JAN-2022) Nonspecific T wave abnormality Abnormal ECG When compared with ECG of 30-SEP-2021 06:12, Questionable change in initial forces of Anterior leads Premature ventricular complexes are now Present Confirmed by Leobardo Johnson ([id number]) on 01/31/2022 7:24:20 AM Referred By: [facility] Confirmed By:Leobardo Johnson
[2022-01-31 07:25] LABS: Basophils # (auto) 0.01 K/uL (0-0.2); Basophils % (auto) 0.2 %; Eosinophils # (auto) 0.08 K/uL (0-0.50); Eosinophils % (auto) 1.5 %; Immature Granulocytes # (auto) 0.04 K/uL (0.00-0.02); Immature Granulocytes % (auto) 0.8 %; Lymphocytes # (auto) 1.29 K/uL (1.2-3.4); Lymphocytes % (auto) 24.2 %; Monocytes # (auto) 0.59 K/uL (0.24-0.82); Monocytes % (auto) 11.1 %; Neutrophils # (auto) 3.31 K/uL (1.4-6.5); Neutrophils % (auto) 62.2 %; RBC Morphology Unremarkable
[2022-01-31] MEDS ORDERED: FUROSEMIDE 40 MG/4 ML VIAL IV SCH (09:00)
[2022-01-31] MEDS ORDERED: FAMOTIDINE 20 MG in SYRINGE 3 ML IV SCH (09:00)
[2022-01-31] MEDS: PANTOprazole 40 MG in SYRINGE 0 ML IV SCH ×2 (09:12→20:40)
[2022-01-31] MEDS: ERTAPENEM SODIUM 1,000 MG in SYRINGE 0 ML IV SCH (09:15)
[2022-01-31 10:24] LABS: Base Excess VBG 20.5 mEq/L; HCO3 VBG 51 mmol/L; Oxygen Saturation VBG 84.4 %; PCO2 VBG 88 mmHg (38-50); PO2 VBG 51 mmHg; pH VBG 7.37 (7.36-7.41)
--- NOTE | 2022-01-31 10:54 | XCELERA ---
[id number]
[2022-01-31] MEDS: LEVOTHYROXINE SODIUM 25 MCG TABLET PO SCH (18:15)
--- NOTE | 2022-01-31 18:17 | Pulmonary Consultation ---
Date of Consultation January 31, 2022 Assessment & Plan (1) Acute and chronic respiratory failure, unspecified whether with hypoxia or hypercapnia: Patient has acute on chronic hypercapnic respiratory failure due to REJI/OHS and noncompliance with BiPAP therapy. I placed a psychiatric consult so that she could discuss her claustrophobia and panic disorder related to the BiPAP mask and see if psychiatry is able to provide any further assistance in this matter. Another consideration would be to discuss with palliative care, but I will defer this to the primary team. (2) Cor pulmonale: Continue diuresis and attempts at positive airway pressure. No role for advanced pulmonary hypertension therapies. (3) Volume overload: Diuresis as above. History of Present Illness Reason for Consultation: Chronic hypercapnic respiratory failure Attending Physician: Tucker Ivy History of Present Illness 76-year-old female with a history of morbid obesity, panic disorder, claustrophobia, stage II pressure ulcer, DVT, CKD, meningioma and paralysis of the lower extremities who presented to the hospital for altered mental status and hypoxia. When I presented to the room, the patient was screaming at the nurses and saying that her legs were hurting. She notes that this happened 2 we eks ago. She describes a bdcb-mpv-skewyae feeling in her legs. When I started asking her about her breathing there was able to distract her and subsequently her pain went away. Her sister was present during the visit. Patient relates that she has been having difficulty with BiPAP because of severe claustrophobia. She notes that she can only wear the BiPAP if someone else is present in the room with her. She denies any shortness of breath at rest. She has very limited mobility due to lower extremity paralysis. She is essentially bedbound. She denies any chest pain. She does have an occasional cough that is occasionally productive. No fevers or chills. She had an echo today which demonstrated an LVEF of 45 to 50% and a mildly dilated right ventricle with reduced function. Chest x-ray today demonstrated congestive heart failure with small effusions. Allergies Allergy/AdvReac Type Severity Reaction Status Date / Time cephalexin Allergy Severe HIVES Verified 12/15/21 11:42 strawberry Allergy Severe hives Verified 12/15/21 11:42 sulfamethoxazole Allergy Mild Rash Verified 12/15/21 11:42 [From Bactrim] trimethoprim [From Bactrim] Allergy Mild Rash Verified 12/15/21 11:42 Unclassified Drugs Allergy Mild DIAL SOAP Uncoded 12/15/21 11:42 - RASH Home Medications Medication Instructions Recorded Confirmed Type famotidine 20 mg tablet 20 mg PO BID 06/12/19 01/30/22 History magnesium hydroxide 400 mg/5 mL 30 ml PO DIRECTED PRN 06/12/19 01/30/22 History oral suspension (Milk of Magnesia) Constipation sennosides 8.6 mg tablet (senna) 8.6 mg PO DAILY PRN Constipation 06/12/19 01/30/22 History Lactobacillus acidophilus 0 mg PO DAILY 07/03/19 01/30/22 History artifi.tears(hypromellose)(PF) 0.3 1 drops OPB BID 07/03/19 01/30/22 History % eye drops tizanidine 4 mg capsule 4 mg PO Q8H PRN Muscle Pain ##0 07/03/19 01/30/22 History ferrous sulfate 325 mg (65 mg 325 mg PO QAM 10/10/19 01/30/22 History iron) tablet,delayed release acetaminophen 325 mg tablet 650 mg PO Q6 PRN Pain/fever 12/07/19 01/30/22 History (Tylenol) calcium carbonate 500 mg-vitamin 1 tab PO BID 12/07/19 01/30/22 History D3 5 mcg (200 unit) tablet (Calcium 500 + D) gabapentin 400 mg capsule 400 mg PO TID 08/12/20 01/30/22 History loratadine 10 mg tablet (Claritin) 10 mg PO QAM 08/12/20 01/30/22 History oxybutynin chloride 5 mg 5 mg PO DAILY #30 tabs 10/22/20 01/30/22 Rx tablet,extended release 24 hr cyanocobalamin (vitamin B-12) 1,000 mcg PO DAILY 09/28/21 01/30/22 History 1,000 mcg tablet (Vitamin B-12) diclofenac sodium 1 % topical gel 2 g topical QID 09/28/21 01/30/22 History folic acid 1 mg tablet 1 mg PO DAILY 09/28/21 01/30/22 History furosemide 40 mg tablet 80 mg PO BID 09/28/21 01/30/22 History melatonin 5 mg tablet 5 mg PO HS 09/28/21 01/30/22 History menthol 0.44 %-zinc oxide 20.6 % 1 applic topical .Q SHIFT PRN .. 09/28/21 01/30/22 History topical ointment (Calmoseptine) multivitamin 1 tab PO DAILY 09/28/21 01/30/22 History pantoprazole 40 mg tablet,delayed 40 mg PO BID 09/28/21 01/30/22 History release polyethylene glycol 3350 17 gram 17 g PO DAILY 09/28/21 01/30/22 History oral powder packet (Miralax) ropinirole 0.25 mg tablet 0.25 mg PO HS PRN Constipation 09/28/21 01/30/22 History sennosides 8.6 mg-docusate sodium 1 tab-cap PO BID 09/28/21 01/30/22 History 50 mg tablet (Senna-S) vibegron 75 mg tablet (Gemtesa) 75 mg PO DAILY 09/28/21 01/30/22 History ipratropium 0.5 mg-albuterol 3 mg 3 ml NEB Q4R PRN shortness of 10/05/21 01/30/22 Rx (2.5 mg base)/3 mL nebulization breath or wheezing #100 mL soln metoprolol tartrate 25 mg tablet 25 mg PO Q12 #30 tabs 10/05/21 01/30/22 Rx potassium chloride 20 mEq 20 meq PO DAILY 01/30/22 01/30/22 History tablet,extended release(part/cryst) warfarin 5 mg tablet 7.5 mg PO DAILY 01/30/22 01/30/22 History Patient History Medical History (Updated 01/31/22 @ 18:20 by Osvaldo Teresa MD) Acute alteration in mental status Acute and chronic respiratory failure, unspecified whether with hypoxia or hypercapnia Acute UTI Anemia Anosmia 2/2 resection of benign brain tumor Arthritis Atrial fibrillation dx few years ago - PCP monitors - on ASA, BB. Not on additional anticoagulation due to fall risk and prior meningioma. Chronic constipation Cognitive communication deficit COPD (chronic obstructive pulmonary disease) Cor pulmonale Dizziness intermittent; h/o recent falls; has been WC bound since March 2019, now resides in [facility] due to immobility. Elevated troponin GERD (gastroesophageal reflux disease) Gross hematuria Hearing deficit B/L ROBERT Heart valve regurgitation Mild to moderate MR/TR per echo 03/2019 [place] History of benign brain tumor s/p removal 2017 History of breast cancer s/p left breast lumpectomy + radiation History of cellulitis RLE History of COVID-19 + 04/2020 PER NURSING CONTRACT SPECIALIST/PAST History of DVT (deep vein thrombosis) 20+ years ago/after ankle fx [place] (hard of hearing) Bilateral Hearing Aids Hyperlipidemia Hypertension Immobility CASEY LIFT, Severe LE pain and weakness; possibly 2/2 spinal stenosis or hip pain Lymphedema Meningioma Mixed stress and urge urinary incontinence Morbid obesity Opiate overdose Osteoarthritis Peripheral neuropathy Raynauds disease Seizure sz first episode 2014, discovered brain tumor; additional sz S/P BRAIN TUMOR REMOVAL IN 2017; last seizure 2017. No longer on seizure medications. Spinal stenosis with neuropathy Stress incontinence in female Volume overload Surgical History H/O hernia repair H/O Spinal surgery History of ankle fusion RIGHT History of bladder surgery TURBT (11/26/19): LMA#4, atraumatic at [facility] History of breast biopsy History of craniotomy HX OF BENIGN TUMOR REMOVAL IN 2016-TEMPORAL MENINGIOMA History of laminectomy LUMBAR History of lumpectomy of left breast Left breast lumpectomy with needle localization (02/22/18): LMA#4 at [facility] -- LUE LIMB RESTRICTION History of mastectomy PARTIAL /XRT FINISHED 04/2018 History of ovarian cystectomy History of repair of hiatal hernia History of total knee replacement BILATERAL History of total shoulder replacement RIGHT S/P IVC filter DUE TO LEFT LOWER EXTREMITY DVT'S WITHOUT CLEAR ETIOLOGY 10/12/2019-OFF ANTICOAGULANTS CURRENTLY S/P PICC central line placement 04/2019 for cellulitis of R hip Family History Mother , Passed age 62 of PR Diabetes Coronary heart disease Hypertension Stroke Father , Passed age 68 of accident (fell down steps) No problems noted. Brother Family history of diabetes mellitus Diabetes Brother No problems noted. Sister Slow to wake up after anesthesia twin sister Breast cancer Twin - Left Breast - Lumpectomy/Chemo/RXT Sister No problems noted. Sister No problems noted. Sister No problems noted. Sister No problems noted. Son Sarcoidosis Son No problems noted. Daughter No problems noted. Grandmother (Paternal) Family history of diabetes mellitus Grandmother (Maternal) Family history of diabetes mellitus Mother Family history of diabetes mellitus Social History Smoking Status: Former smoker Tobacco Type: Cigarettes Years Smoked: 2; Cigarettes Per Day: HX OF SOCIAL CIGARETTE, QUIT 25 YEARS AGO.; Second Hand Exposure: No; Do You Dip or Chew Tobacco: No; Hx Alcohol Use: No Hx Substance Use: No Preferred Language: Somali Communication Ability: Unable Visual Impairment: Limited Hearing Ability: Use of Hearing Aid [employer] Analyst Required: No Beliefs That Will Affect Care: None marital status: Current Living Situation: Personal Care Facility Current Living Situation Comment: [facility] 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 Moderate distress. Eyes: Pupils are equal round and reactive to light. Conjunctivae are normal. Anicteric sclera. Ears nose, mouth and throat: Mallampati class 3. Normal posterior oropharynx. Uvula is midline. Neck: Trachea is midline. Visual inspection is normal. Respiratory: Diminished lung sounds bilaterally. Crackles. Cardiovascular: Regular rate and rhythm. No murmurs. No edema. Gastrointestinal: Normal bowel sounds, soft, nontender and nondistended. No hepatosplenomegaly noted. Musculoskeletal: Paralyzed lower extremities with 4+ pitting edema. Skin: No rashes, warm dry and intact. Neurologic: No obvious focal neurological deficits seen. Psychiatric: Alert and oriented x3 with an anxious mood Results & Data Results & Data ([facility]) Vital Signs (Past 12 Hours) Vital Signs Temp Pulse Pulse Resp BP BP Pulse Ox 01/31/22 16:00 36.7 C 80 18 134/78 94 01/31/22 13:31 78 01/31/22 11:28 36.6 C 71 19 127/83 100 08/21/22 07:35 36.5 C 77 20 116/75 94 01/31/22 07:31 01/31/22 06:39 70 114/80 O2 Del Method O2 Flow Rate 01/31/22 16:00 Nasal Cannula 3 01/31/22 13:31 01/31/22 11:28 Nasal Cannula 3 01/31/22 07:35 Room Air 3 01/31/22 07:31 Nasal Cannula 3 01/31/22 06:39 PG Care Time/CCT Total # of Minutes Spent Total Time Spent with Patient: Total time spent is greater than 50% in coordination of care (as documented) at patient's floor/unit and/or counseling patient: Coding Level of Care Code 70855 Initial Inpt Care Lvl 3 Diagnoses Acute and chronic respiratory failure, unspecified whether with hypoxia or hypercapnia J96.20 Cor pulmonale I27.81 Volume overload E87.70
[2022-01-31] MEDS ORDERED: KETOROLAC TROMETHAMINE 15 MG/ML VIAL IV ONE (19:57)
--- NOTE | 2022-01-31 20:44 | Hospitalist Progress Note ---
Date of Service January 31, 2022 Assessment & Plan (1) Acute on chronic respiratory failure with hypoxia and hypercapnia: Plan: acute component 2nd to noncompliance with BIPAP in the setting of decompensated CHF, UTI, etc. chronic component - OHS/REJI, COPD, Cor pulmonale, severe Pulm HTN. would patient benefit from Trilogy in [place] of BIPAP? other recs? will consult pulmonary for their opinion for optimization of her respiratory status. (2) Acute metabolic encephalopathy: Plan: 2nd hypercapnea. UTI could be contributing. Improved this am. (3) Acute on chronic systolic heart failure: Plan: Echo today - EF 45-50% with right ventricular systolic failure as well. Na level is high today - received lasix this am. Hold lasix moving forward until repeat BMP tomorrow am has returned. Cont metoprolol. (4) Acute on chronic right-sided congestive heart failure: Plan: Right-sided CHF 2nd to severe pulmonary HTN in the setting of OHS/REJI/COPD. See #3 above. (5) Hypothyroidism: Plan: TSH in November and now this admission mildly high. Given her volume issues reasonable to treat. Start synthroid 25mcg daily. Repeat TSH 6 weeks. (6) Acute UTI: Plan: 2nd GNR. Cont ertapenem - await final culture. (7) Elevated troponin: Plan: 2nd to myocardial demand ischemia in setting of acute/chronic respiratory failure, UTI, decompensated CHF, etc. No evidence of ACS. (8) Hypernatremia: Plan: Total body fluid overloaded but has water deficit. VERY difficult situation to be in given her medical complexity. s/p lasix yesterday and this am. Check BMP am. (9) Atrial fibrillation: Plan: Rates controlled. Cont BB. INR 4 - hold coumadin today. (10) History of DVT (deep vein thrombosis): Plan: 2+ years ago after ankle fracture, on Coumadin. Holding coumadin again 2nd supratherapeutic INR 4.0. INR am. Suspect high INR due to liver dysfunction in setting of right sided CHF w/ passive congestion of liver. (11) GERD (gastroesophageal reflux disease): Plan: IV PPI twice daily. Convert to PO. (12) COPD (chronic obstructive pulmonary disease): Plan: History of, with a continuous O2 requirement of 3 L NC. No exacerbation at this time. (13) Hypertension: (14) Morbid obesity with BMI of 45.0-49.9, adult: Plan: BMI 45 (15) Ptosis: Plan: left eye chronic 2nd to previous meningioma resection?? would not pursue w/u at this time (16) Rotator cuff syndrome of right shoulder: Plan: treat pain symptoms not a candidate for any aggressive intervention given complex medical issues, etc Plan DNR/DNI sister updated at bedside Admission and Anticipated Discharge Date Admission Date: January 30, 2022 Subjective patient's sister was present during the bedside visit patient c/o numerous things - 1. chronic right shoulder pain and weakness leading to right arm weakness 2. back pain 3. b/l leg weakness 4. severe edema 5. not being able to get out of bed 6. droopy eyelid on left (sister states it's been "there a while") she was very inconsistent in what she was telling me about her BIPAP usage back at [facility] she blamed her lack of use on staff at SNF "not knowing how to put the mask on -- they put it on backwards all the time" tele overnight wnl Review of Systems Review of Systems: gen - "I'm tired all the time" cv - no chest pain pulm - dyspnea with little exertion GI - no abd pain, nausea, emesis Physical Exam Physical Exam: gen - morbidly obese, poor historian, NAD eyes - ptosis left eye mouth - MMM neck - difficult to assess JVD heart - irregularly irregular, RR, s1 s2, 1/6 systolic murmur LSB lungs - decreased BS bases, CTA b/l apices abd - obese, soft, NT, ND, BS+ ext - SEVERE edema from feet all the way to the hips -- 4+ edema, pulses feet 2+ b/l musculo - atrophy of shoulder muscles on right; passive ROM of right shoulder leads to pain starting at 30 degrees of abduction skin - ulcer on dorsum L foot clean, no cellulitis - clark in place Results & Data Results & Data ([facility]) Vital Signs (Past 12 Hours) Vital Signs Temp Pulse Pulse Resp BP Pulse Ox O2 Del Method 01/31/22 19:32 36.4 C L 87 20 97/55 L 91 Nasal Cannula 01/31/22 18:15 82 01/31/22 16:00 36.7 C 80 18 134/78 94 Nasal Cannula 01/31/22 13:31 78 01/31/22 11:28 36.6 C 71 19 127/83 100 Nasal Cannula O2 Flow Rate 01/31/22 19:32 3 01/31/22 18:15 01/31/22 16:00 3 01/31/22 13:31 01/31/22 11:28 3 Laboratory Results Laboratory Results - last 24 hr 01/31/22 01/31/22 01/31/22 06:23 06:23 06:23 WBC RBC Hgb Hct MCV MCH MCHC RDW Std Deviation RDW Coeff of Tatyana Plt Count MPV Immature Gran % (Auto) Neut % (Auto) Lymph % (Auto) Dickson % (Auto) Eos % (Auto) Baso % (Auto) Neut # (Auto) Lymph # (Auto) Dickson # (Auto) Eos # (Auto) Baso # (Auto) Immature Gran # (Auto) RBC Morphology PT 39.1 H INR 4.0 H VBG pH VBG pCO2 VBG pO2 VBG HCO3 VBG O2 Saturation VBG Base Excess Sodium 149 H Potassium 3.9 Chloride 100 Carbon Dioxide 44 H* Anion Gap 5 BUN 32 H Creatinine 0.85 Est Cr Clr Drug Dosing 85.1 Est GFR ( Amer) 77.7 Est GFR (Non-Af Amer) 67.0 BUN/Creatinine Ratio 37.6 H Glucose 94 POC Glucose Calcium 9.2 Magnesium 2.3 Total Bilirubin 0.7 D AST 16 ALT 8 Alkaline Phosphatase 92 Troponin I High Sens Total Protein 5.8 L Albumin 3.2 L Globulin 2.6 Albumin/Globulin Ratio 1.2 Vitamin B12 > 1500 H Folate > 22.30 01/31/22 01/31/22 01/31/22 06:23 06:23 06:23 WBC 5.32 RBC 3.79 L Hgb 11.7 L Hct 40.5 MCV 106.9 H MCH 30.9 MCHC 28.9 L RDW Std Deviation 66.1 H RDW Coeff of Tatyana 17.1 H Plt Count 144 MPV 10.8 Immature Gran % (Auto) 0.8 Neut % (Auto) 62.2 Lymph % (Auto) 24.2 Dickson % (Auto) 11.1 Eos % (Auto) 1.5 Baso % (Auto) 0.2 Neut # (Auto) 3.31 Lymph # (Auto) 1.29 Dickson # (Auto) 0.59 Eos # (Auto) 0.08 Baso # (Auto) 0.01 Immature Gran # (Auto) 0.04 H RBC Morphology Unremarkable PT INR VBG pH 7.39 VBG pCO2 86 H VBG pO2 33 VBG HCO3 52 VBG O2 Saturation < 60.0 VBG Base Excess 21.9 Sodium Potassium Chloride Carbon Dioxide Anion Gap BUN Creatinine Est Cr Clr Drug Dosing Est GFR ( Amer) Est GFR (Non-Af Amer) BUN/Creatinine Ratio Glucose POC Glucose Calcium Magnesium Total Bilirubin AST ALT Alkaline Phosphatase Troponin I High Sens 58.1 H* Total Protein Albumin Globulin Albumin/Globulin Ratio Vitamin B12 Folate 01/31/22 01/31/22 01/31/22 07:19 10:08 11:14 WBC RBC Hgb Hct MCV MCH MCHC RDW Std Deviation RDW Coeff of Tatyana Plt Count MPV Immature Gran % (Auto) Neut % (Auto) Lymph % (Auto) Dickson % (Auto) Eos % (Auto) Baso % (Auto) Neut # (Auto) Lymph # (Auto) Dickson # (Auto) Eos # (Auto) Baso # (Auto) Immature Gran # (Auto) RBC Morphology PT INR VBG pH 7.37 VBG pCO2 88 H VBG pO2 51 VBG HCO3 51 VBG O2 Saturation 84.4 VBG Base Excess 20.5 Sodium Potassium Chloride Carbon Dioxide Anion Gap BUN Creatinine Est Cr Clr Drug Dosing Est GFR ( Amer) Est GFR (Non-Af Amer) BUN/Creatinine Ratio Glucose POC Glucose 100 H 123 H Calcium Magnesium Total Bilirubin AST ALT Alkaline Phosphatase Troponin I High Sens Total Protein Albumin Globulin Albumin/Globulin Ratio Vitamin B12 Folate 01/31/22 16:33 WBC RBC Hgb Hct MCV MCH MCHC RDW Std Deviation RDW Coeff of Tatyana Plt Count MPV Immature Gran % (Auto) Neut % (Auto) Lymph % (Auto) Dickson % (Auto) Eos % (Auto) Baso % (Auto) Neut # (Auto) Lymph # (Auto) Dickson # (Auto) Eos # (Auto) Baso # (Auto) Immature Gran # (Auto) RBC Morphology PT INR VBG pH VBG pCO2 VBG pO2 VBG HCO3 VBG O2 Saturation VBG Base Excess Sodium Potassium Chloride Carbon Dioxide Anion Gap BUN Creatinine Est Cr Clr Drug Dosing Est GFR ( Amer) Est GFR (Non-Af Amer) BUN/Creatinine Ratio Glucose POC Glucose 130 H Calcium Magnesium Total Bilirubin AST ALT Alkaline Phosphatase Troponin I High Sens Total Protein Albumin Globulin Albumin/Globulin Ratio Vitamin B12 Folate PG Care Time/CCT Total # of Minutes Spent Total Time Spent with Patient: Total time spent is greater than 50% in coordination of care (as documented) at patient's floor/unit and/or counseling patient: Coding Level of Care Code 83876 Subseq Hosp Care Lvl 3 Diagnoses Acute on chronic respiratory failure with hypoxia and hypercapnia J96.21; J96.22 Acute metabolic encephalopathy G93.41 Acute on chronic systolic heart failure I50.23 Acute on chronic right-sided congestive heart failure I50.813 Hypothyroidism E03.9 Acute UTI N39.0 Elevated troponin R77.8 Hypernatremia E87.0 Atrial fibrillation I48.91 History of DVT (deep vein thrombosis) Z86.718 GERD (gastroesophageal reflux disease) K21.9 COPD (chronic obstructive pulmonary disease) J44.9 Hypertension I10 Morbid obesity with BMI of 45.0-49.9, adult E66.01; Z68.42 Ptosis H02.409 Rotator cuff syndrome of right shoulder M75.101
[2022-02-01] MEDS ORDERED: tiZANidine HCL 4 MG TABLET PO ONE (00:32)
[2022-02-01] MEDS: METOPROLOL TARTRATE 1 MG/ML VIAL IV SCH (04:45)
[2022-02-01] MEDS: LEVOTHYROXINE SODIUM 25 MCG TABLET PO SCH (06:35)
[2022-02-01 07:14] LABS: INR 2.5 (0.9-1.1); Prothrombin Time 25.1 Seconds (9.0-12.0)
[2022-02-01 07:19] LABS: BUN Creatinine Ratio 30.1 (10-20); Blood Urea Nitrogen 31 mg/dl (6-23); Calcium 8.4 mg/dl (8.5-10.1); Carbon Dioxide > 45 mmol/L (21-32); Chloride 98 mmol/L (98-107); Creatinine Clr Calc Pharmacy 71.6 ml/min; Est GFR (African American) 61.6 ml/min; Est GFR (Non-African American) 53.1 ml/min; Glucose 117 mg/dl (70-99(Fasting)); Potassium 3.4 mmol/L (3.5-5.1); Sodium 146 mmol/L (136-145)
[2022-02-01] MEDS: ERTAPENEM SODIUM 1,000 MG in SYRINGE 0 ML IV SCH (08:08)
[2022-02-01] MEDS: PANTOprazole 40 MG TAB PO SCH ×2 (08:09→20:00)
[2022-02-01] MEDS: FAMOTIDINE 20 MG TAB PO SCH ×2 (08:09→20:00)
[2022-02-01] MEDS: METOPROLOL SUCC 25MG EXT REL TAB PO SCH (08:09)
[2022-02-01] MEDS ORDERED: POTASSIUM CHLORIDE CRTAB 20 MEQ TABCR PO ONE (08:23)
[2022-02-01] MEDS ORDERED: HYDROCODONE/ACETAMOPHEN 5/325MG TAB PO ONE (08:24)
--- NOTE | 2022-02-01 10:44 | Pulmonology Progress Note ---
Date of Service February 01, 2022 Assessment & Plan (1) Cor pulmonale: (2) Volume overload: (3) Acute on chronic respiratory failure with hypoxia and hypercapnia: (4) Morbid obesity with BMI of 45.0-49.9, adult: (5) Pulmonary hypertension: Plan 2D echo 01/31/2022: EF 45-50%, mild global hypokinesis, mild concentric LVH, type II diastolic dysfunction, mildly dilated RV with mildly reduced RV systolic function, severe pulmonary hypertension Chest x-ray 01/30/2022 personally reviewed: Portable film, good respiratory effort, bilateral costophrenic and cardiophrenic angles are blunted, increased pulmonary vascular markings, increased cardiac silhouette --Acute on chronic hypoxic hypercapnic respiratory failure Hypoxia is most likely from pulmonary edema with systolic and diastolic heart failure Hypercapnia is most likely from underlying REJI/OHS Continue with diuretics to keep the patient negative balance Continue with BiPAP nightly and as needed shortness of breath Keep O2 saturation between 88-92% --Metabolic alkalosis Likely compensation to chronic metabolic acidosis on top of diuretic use Continue to monitor --Pulmonary hypertension Severe Likely type II from systolic and diastolic CHF REJI/OHS also playing a part Plan for diuresis as above -- Ex-smoker Quit approximately 10 years ago --A. fib On warfarin Plan: In/out: -1.4 L, -2.6 L since coming to the hospital I will repeat ABG today to see where the pH stands in relation to PCO2. If the pH is around 7.4 then would recommend giving acetazolamide 250 mg twice daily for 3 days. Continue with BiPAP nightly and as needed shortness of breath. Advised not to over oxygenate the patient. Keep O2 saturation between 88-92% Recommend incentive spirometry Case was discussed with RACHAEL Pena at bedside Please note the above document was generated using voice recognition software. It may contain grammatical, syntax or spelling errors.Any formal questions or concerns about the content, text or information contained within the body of this dictation should be directly addressed to the provider for clarification. Admission and Anticipated Discharge Date Admission Date: January 30, 2022 Subjective Patient seen and examined at bedside. No acute distress, no adverse events overnight. Patient did use BiPAP overnight. She says she is feeling better compared to when she came to the hospital She was snoring when I entered the room. On waking her up she answered all the questions appropriately Denied any headache, no nausea, no vomiting Abdominal pain, shortness of breath is improved. Patient was saturating 97% on 3 L nasal cannula. I went down to 1.5 L Review of Systems Review of Systems: All systems reviewed & are unremarkable except as noted in Subjective Physical Exam Physical Exam: Constitutional: No acute distress HEENT: EOMI, PERRLA Respiratory system: Decreased air entry bilaterally, no wheeze, no rhonchi, positive crackles bilateral lower lobe CVS: S1-S2 positive, no murmurs or gallops Abdomen: Soft, nontender, nondistended, positive bowel sounds x4, obese Extremities: +2 pulses bilaterally radialis/ dorsalis pedis, no cyanosis, +2 pitting edema bilateral lower extremity, positive anasarca Neuro: Awake alert oriented x3 Psych: Normal mood and affect G/U: Positive Alvarez Skin: no rashes, warm and dry Lymphatic: no cervical or axillary lymphadenopathy Results & Data Results & Data ([facility]) Vital Signs (Past 12 Hours) Vital Signs Temp Pulse Pulse Resp BP BP Pulse Ox 02/01/22 08:00 02/01/22 08:00 105/67 95 02/01/22 07:00 36.9 C 68 22 99/63 L 96 02/01/22 04:45 59 L 135/77 02/01/22 04:00 36.7 C 59 L 24 135/77 96 02/01/22 03:46 68 16 92 01/31/22 23:30 01/31/22 23:30 66 99/62 L 01/31/22 23:00 36.8 C 66 18 99/62 L 96 01/31/22 22:54 85 35 H 92 O2 Del Method O2 Flow Rate FiO2 02/01/22 08:00 Nasal Cannula 1.5 02/01/22 08:00 Nasal Cannula 3 02/01/22 07:00 Nasal Cannula 3 02/01/22 04:45 02/01/22 04:00 CPAP 02/01/22 03:46 40 01/31/22 23:30 BiPAP 01/31/22 23:30 01/31/22 23:00 CPAP 01/31/22 22:54 40 Laboratory Results 01/31/22 06:23 02/01/22 06:23 PG Care Time/CCT Total # of Minutes Spent Total Time Spent with Patient: Total time spent is greater than 50% in coordination of care (as documented) at patient's floor/unit and/or counseling patient: Coding Level of Care Code 77669 Subseq Hosp Care Lvl 3 Diagnoses Cor pulmonale I27.81 Volume overload E87.70 Acute on chronic respiratory failure with hypoxia and hypercapnia J96.21; J96.22 Morbid obesity with BMI of 45.0-49.9, adult E66.01; Z68.42 Pulmonary hypertension I27.20
[2022-02-01 11:22] LABS: HCO3 ABG 48 mmol/L (19-24); Oxygen Saturation ABG 96.9 % (90-95); PCO2 ABG 78 mmHg (35-46); PO2 ABG 83 mmHg (80-95)
[2022-02-01 11:23] LABS: Allen Test Pos (Pos)
--- NOTE | 2022-02-01 11:47 | Psychiatric Consultation ---
Date of Consultation February 01, 2022 Impression / Recommendations Impression 76 yo woman with REJI, chronic respiratory failure, CHF, COPD, hypernatremia admitted medically for altered mental status and hypercapnea with refusal of wearing BiPaP in days prior to admission leading to obtunded state. Initially presented with delirium but mentation appears to have cleared and improved significantly this morning with medical management and BiPaP adherence last night. Reviewed ways that anxiety can contribute to concerns about BiPaP use, though per her report (which notably differs from collateral regarding recent adherence) suggests component of delirium and confusion contributing to recent refusal. Consistent with timing of when her mask is offered at bedtime may also help though understandably this depends on staffing availability at [facility]. Reviewed CBT and grounding strategies she can use to help with BiPAP. If ongoing difficulty could consider offering prn medication pre-BiPAP such as Vistaril 25mg qhs prn though if used monitor closely for worsening of cognitive status given anticholinergic effects. Alternatively defer to pulmonology and sleep medicine on if alternative mask designs are available/suitable that she may find less cumbersome. (1) Anxiety: Plan -Reviewed behavioral strategies/coping skills for anxiety related to BiPAP -Consider alternative mask designs if issues persist? -Option to use Vistaril 25mg qhs prn prior to offering BiPAP if adherence remains problematic Psych History Identifying Data 76 yo woman with history of COPD, anxiety and encephalopathy admitted medically for respiratory failure and altered mental status. Psychiatry consulted for recommendations to help with anxiety related to wearing BiPaP mask. Chief Complaint "I've gotten use to it, I tell myself it's important for my health". History of Present Illness Valorie was admitted for altered mental status concerning for hypercapnia after refusing BiPaP at [facility] where she resides. She told the dope house operator helper that she sometimes feels claustrophobic and develops panic with her mask and that this can interfere with adherence. Reportedly has been refusing her BiPaP since last Tuesday. Today she presents with significant improvement in mentation, fully oriented and in no acute distress after wearing her BiPaP last night. She denies any recent issues with her BiPAP stating that she has been adherent with it but does recall pulling it off 1 morning in recent days at about 6 AM because she started to feel "panic". We review that initially when she first got her BiPAP she felt very claustrophobic and anxious wearing it but states that she has become accustomed to it now "always wears it". She states that when she feels anxious about putting on the mass she roberto carlos by reminding herself "I need this for my health it is important for oxygen". She states that this tends to work and allows her to wear the mask. States one of the biggest issues recently is that there have been staffing shortages at [facility] and she likes 1 one of the providers helps her put her mask on at 10 PM before shift change at 11 PM but that some nights they do not come in until later and she is already falling asleep while watching TV. States she tolerated the mask well last night and we reviewed coping strategies she can use if she develops anxiety including alternative coping thoughts such as she uses, distraction strategies such as w ord puzzles as well as grounding exercises such as selecting a color and naming 5 or 10 objects in the room matching that color in her head or out loud. She denies any other concerns or questions and feels that she is able to use these strategies and continue practicing them. She feels comfortable with her BiPAP and plans to continue wearing it and using it. Allergies Allergy/AdvReac Type Severity Reaction Status Date / Time cephalexin Allergy Severe HIVES Verified 12/15/21 11:42 strawberry Allergy Severe hives Verified 12/15/21 11:42 sulfamethoxazole Allergy Mild Rash Verified 12/15/21 11:42 [From Bactrim] trimethoprim [From Bactrim] Allergy Mild Rash Verified 12/15/21 11:42 amoxicillin [From Augmentin] AdvReac Mild Diarrhea, Verified 02/01/22 12:26 nausea clavulanic acid AdvReac Mild Diarrhea, Verified 02/01/22 12:26 [From Augmentin] nausea Unclassified Drugs Allergy Mild DIAL SOAP Uncoded 12/15/21 11:42 - RASH Home Medications Medication Instructions Recorded Confirmed Type famotidine 20 mg tablet 20 mg PO BID 06/12/19 01/30/22 History magnesium hydroxide 400 mg/5 mL 30 ml PO DIRECTED PRN 06/12/19 01/30/22 History oral suspension (Milk of Magnesia) Constipation sennosides 8.6 mg tablet (senna) 8.6 mg PO DAILY PRN Constipation 06/12/19 01/30/22 History Lactobacillus acidophilus 0 mg PO DAILY 07/03/19 01/30/22 History artifi.tears(hypromellose)(PF) 0.3 1 drops OPB BID 07/03/19 01/30/22 History % eye drops tizanidine 4 mg capsule 4 mg PO Q8H PRN Muscle Pain ##0 07/03/19 01/30/22 History ferrous sulfate 325 mg (65 mg 325 mg PO QAM 10/10/19 01/30/22 History iron) tablet,delayed release acetaminophen 325 mg tablet 650 mg PO Q6 PRN Pain/fever 12/07/19 01/30/22 History (Tylenol) calcium carbonate 500 mg-vitamin 1 tab PO BID 12/07/19 01/30/22 History D3 5 mcg (200 unit) tablet (Calcium 500 + D) gabapentin 400 mg capsule 400 mg PO TID 08/12/20 01/30/22 History loratadine 10 mg tablet (Claritin) 10 mg PO QAM 08/12/20 01/30/22 History oxybutynin chloride 5 mg 5 mg PO DAILY #30 tabs 10/22/20 01/30/22 Rx tablet,extended release 24 hr cyanocobalamin (vitamin B-12) 1,000 mcg PO DAILY 09/28/21 01/30/22 History 1,000 mcg tablet (Vitamin B-12) diclofenac sodium 1 % topical gel 2 g topical QID 09/28/21 01/30/22 History folic acid 1 mg tablet 1 mg PO DAILY 09/28/21 01/30/22 History furosemide 40 mg tablet 80 mg PO BID 09/28/21 01/30/22 History melatonin 5 mg tablet 5 mg PO HS 09/28/21 01/30/22 History menthol 0.44 %-zinc oxide 20.6 % 1 applic topical .Q SHIFT PRN .. 09/28/21 01/30/22 History topical ointment (Calmoseptine) multivitamin 1 tab PO DAILY 09/28/21 01/30/22 History pantoprazole 40 mg tablet,delayed 40 mg PO BID 09/28/21 01/30/22 History release polyethylene glycol 3350 17 gram 17 g PO DAILY 09/28/21 01/30/22 History oral powder packet (Miralax) ropinirole 0.25 mg tablet 0.25 mg PO HS PRN Constipation 09/28/21 01/30/22 History sennosides 8.6 mg-docusate sodium 1 tab-cap PO BID 09/28/21 01/30/22 History 50 mg tablet (Senna-S) vibegron 75 mg tablet (Gemtesa) 75 mg PO DAILY 09/28/21 01/30/22 History ipratropium 0.5 mg-albuterol 3 mg 3 ml NEB Q4R PRN shortness of 10/05/21 0 01/30/22 Rx (2.5 mg base)/3 mL nebulization breath or wheezing #100 mL soln metoprolol tartrate 25 mg tablet 25 mg PO Q12 #30 tabs 10/05/21 01/30/22 Rx potassium chloride 20 mEq 20 meq PO DAILY 01/30/22 01/30/22 History tablet,extended release(part/cryst) warfarin 5 mg tablet 7.5 mg PO DAILY 01/30/22 01/30/22 History Personal History Living Arrangements: Residential Highest Grade Completed: High School Graduate Employment Status: Retired Beliefs That Will Affect Care: None Patient History Medical History Acute alteration in mental status Acute and chronic respiratory failure, unspecified whether with hypoxia or hypercapnia Acute UTI Anemia Anosmia 2/2 resection of benign brain tumor Arthritis Atrial fibrillation dx few years ago - PCP monitors - on ASA, BB. Not on additional anticoagulation due to fall risk and prior meningioma. Chronic constipation Cognitive communication deficit COPD (chronic obstructive pulmonary disease) Cor pulmonale Dizziness intermittent; h/o recent falls; has been WC bound since March 2019, now resides in [facility] due to immobility. Elevated troponin GERD (gastroesophageal reflux disease) Gross hematuria Hearing deficit B/L ROBERT Heart valve regurgitation Mild to moderate MR/TR per echo 03/2019 [place] History of benign brain tumor s/p removal 2017 History of breast cancer s/p left breast lumpectomy + radiation History of cellulitis RLE History of COVID-19 + 04/2020 PER NURSING BUTTONHOLE MARKER/PAST History of DVT (deep vein thrombosis) 20+ years ago/after ankle fx [place] (hard of hearing) Bilateral Hearing Aids Hyperlipidemia Hypertension Immobility CASEY [place]IFT, Severe LE pain and weakness; possibly 2/2 spinal stenosis or hip pain Lymphedema Meningioma Mixed stress and urge urinary incontinence Morbid obesity Opiate overdose Osteoarthritis Peripheral neuropathy Raynauds disease Seizure sz first episode 2014, discovered brain tumor; additional sz S/P BRAIN TUMOR REMOVAL IN 2017; last seizure 2017. No longer on seizure medications. 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 History of laminectomy LUMBAR History of lumpectomy of left breast Left breast lumpectomy with needle localization (02/22/18): LMA#4 at [facility] -- LUE LIMB RESTRICTION History of mastectomy PARTIAL /XRT FINISHED 04/2018 History of ovarian cystectomy History of repair of hiatal hernia History of total knee replacement BILATERAL History of total shoulder replacement RIGHT S/P IVC filter DUE TO LEFT LOWER EXTREMITY DVT'S WITHOUT CLEAR ETIOLOGY 10/12/2019-OFF ANTICOAGULANTS CURRENTLY S/P PICC central line placement 04/2019 for cellulitis of R hip Family History Mother , Passed age 62 of SD Diabetes Coronary heart disease Hypertension Stroke Father , Passed age 68 of accident (fell down steps) No problems noted. Brother Family history of diabetes mellitus Diabetes Brother No problems noted. Sister Slow to wake up after anesthesia twin sister Breast cancer Twin - Left Breast - Lumpectomy/Chemo/RXT Sister No problems noted. Sister No problems noted. Sister No problems noted. Sister No problems noted. Son Sarcoidosis Son No problems noted. Daughter No problems noted. Grandmother (Paternal) Family history of diabetes mellitus Grandmother (Maternal) Family history of diabetes mellitus Mother Family history of diabetes mellitus Social History Smoking Status: Former smoker Tobacco Type: Cigarettes Years Smoked: 2; Cigarettes Per Day: HX OF SOCIAL CIGARETTE, QUIT 25 YEARS AGO.; Second Hand Exposure: No; Do You Dip or Chew Tobacco: No; Hx Alcohol Use: No Hx Substance Use: No Preferred Language: Yi Communication Ability: Unable Visual Impairment: Limited Hearing Ability: Use of Hearing Aid Servicing Manager Required: No Beliefs That Will Affect Care: None marital status: Current Living Situation: Personal Care Facility Current Living Situation Comment: [facility] 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 How many Children do You have: 3 Feels Safe at Home: No Is there a partner from a previous relationship who is making you feel unsafe now?: No (unknown) Any Concerns about Your Family Situation: No Would You Like to Speak to Someone About Your Situation: No Safety Concerns: Feels Safe At This Time caffeine: No Assistive Devices: None Physical Exam Psychiatric: Orientation: alert and oriented x 3 Apperance: appropriately dressed and appropriately groomed Eye Contact: good eye contact Motor Behavior: no abnormal motor movements Speech: normal rate/rhythm/volume of speech Affect: euthymic affect Mood: no depressed mood and no anxious mood Thought Process: linear/logical thought process Thought Content: reality based without delusions Suicidal Thoughts: denies suicidal thoughts Homicidal Thoughts: denies homicidal thoughts Hallucinations: no auditory hallucinations and no visual hallucinations Cognition: remote memory grossly intact, attention grossly intact and language grossly intact; + recent memory not intact Estimated Intelligence: consistent with education level Insight: + fair insight Judgement: + fair judgement Vital Signs (Past 24 Hours): Last Vital Signs Temp 36.9 C 02/01/22 07:00 Pulse 68 02/01/22 07:00 Resp 22 02/01/22 07:00 BP 105/67 02/01/22 08:00 Pulse Ox 95 02/01/22 08:00 O2 Del Method 02/01/22 08:00 O2 Flow Rate 1.5 02/01/22 08:00 FiO2 40 02/01/22 03:46 Review of Systems All systems reviewed & are unremarkable except as noted in HPI & below (intermittent pins and needles in her legs) Results & Data (PSY) Medications Administered Famotidine (Famotidine 20 Mg Tab) 20 mg PO BID FIDEL Stop: 03/03/22 08:59 Last Admin: 02/01/22 08:09 Dose: 20 mg Documented By: MJ Furosemide (Furosemide 40 Mg/4 Ml Vial) 40 mg IV DAILY FIDEL Stop: 03/02/22 08:59 Last Admin: 01/31/22 09:12 Dose: 40 mg Documented By: NABOR Ertapenem 1,000 mg/ Syringe 10 mls @ 2 mls/min IV Q24H [facility]; Protocol Stop: 02/08/22 09:04 Last Admin: 02/01/22 08:08 Dose: 2 mls/min Documented By: Admin: 01/31/22 09:15 Dose: 2 mls/min Documented By: NABOR Levothyroxine Sodium (Levothyroxine Sodium 25 Mcg Tablet) 25 mcg PO DAILYBB [facility] Stop: 03/02/22 16:54 Last Admin: 02/01/22 06:35 Dose: 25 mcg Documented By: Admin: 01/31/22 18:15 Dose: 25 mcg Documented By: NABOR Metoprolol Succinate (Metoprolol Succ 25mg Ext Rel Tab) 25 mg PO QAM [facility] Stop: 03/03/22 08:59 Last Admin: 02/01/22 08:09 Dose: 25 mg Documented By: MJ Pantoprazole Sodium (Pantoprazole 40 Mg Tab) 40 mg PO BID [facility] Stop: 03/03/22 08:59 Last Admin: 02/01/22 08:09 Dose: 40 mg Documented By: GPF Coding Level of Care Code 58205 Inpt Consult Level 3 Diagnoses Anxiety F41.9
[2022-02-01] MEDS: WARFARIN SOD 5 MG TAB PO SCH (16:40)
[2022-02-01] MEDS: WARFARIN SOD 2 MG TAB PO SCH (16:41)
--- NOTE | 2022-02-01 23:09 | Hospitalist Progress Note ---
Date of Service February 01, 2022 Assessment & Plan (1) Acute on chronic respiratory failure with hypoxia and hypercapnia: Plan: acute component 2nd to noncompliance with BIPAP in the setting of decompensated CHF, UTI, etc. chronic component - OHS/REJI, COPD, Cor pulmonale, severe Pulm HTN. appreciate pulmonary consultation. cont BIPAP faithfully with naps/HS. add diamox 250mg BID x 3 days due to significant alkalosis. hold lasix today but hopefully resume tomorrow if bicarb is improved. patient counseled by multiple providers on importance of compliance with BIPAP. (2) Acute metabolic encephalopathy: Plan: 2nd hypercapnea. UTI could be contributing. has improved with Rx of both issues. ammonia level noted to be normal. CT head w/o acute process. (3) Acute on chronic systolic heart failure: Plan: Echo this admission - biventricular failure. EF 45-50% with right ventricular systolic failure. Still significantly hypervolemic with severe LE edema. Bicarb on BMP is >45. ABG results noted with pH 7.4. Diamox 250mg BID x 3 days. Hold lasix today; hopefully can resume in am. Cont metoprolol. Was on tartrate 25mg BID; convert to succinate. (4) Acute on chronic right-sided congestive heart failure: Plan: Right-sided CHF 2nd to severe pulmonary HTN in the setting of OHS/REJI/COPD. See #3 above. (5) Hypothyroidism: Plan: TSH in November and now this admission mildly high. Given her volume issues reasonable to treat. Staredt synthroid 25mcg daily. Repeat TSH 6 weeks. (6) Acute UTI: Plan: 2nd e.coli. s/p ertapenem since admission. Spoke with pharmacy - despite h/o keflex allergy they feel we can trial her on omnicef 300mg BID. Apparently has tolerated rocephin in the past. Reasonable to finish treatment course with omnicef albeit cautiously. (7) Elevated troponin: Plan: 2nd to myocardial demand ischemia in setting of acute/chronic respiratory failure, UTI, decompensated CHF, etc. No evidence of ACS. (8) Hypernatremia: Plan: Total body fluid overloaded but has water deficit. Na today 146. Na levels have been mildly high since November 2021. In light of her significant CHF may need to accept Na Levels of 145-150 in order to keep fluid balance negative. Re-Check BMP am. (9) Atrial fibrillation: Plan: Rates controlled. Cont BB. INR 2.5 today -- resume coumadin, reduce total weekly dose by about 10%; thus, reduce daily dose to 7mg from 7.5mg. INR am. (10) History of DVT (deep vein thrombosis): Plan: 2+ years ago after ankle fracture, on Coumadin. INR 2.5 today -- see above. INR am. Suspect high INR due to liver dysfunction in setting of right sided CHF w/ passive congestion of liver. (11) GERD (gastroesophageal reflux disease): Plan: PPI twice daily. (12) COPD (chronic obstructive pulmonary disease): Plan: History of, with a continuous O2 requirement of 3 L NC. No exacerbation at this time. (13) Hypertension: Plan: Cont metoprolol Controlled (14) Morbid obesity with BMI of 45.0-49.9, adult: Plan: BMI 45 (15) Ptosis: Plan: left eye chronic 2nd to previous meningioma resection?? would not pursue w/u at this time (16) Rotator cuff syndrome of right shoulder: Plan: treat pain symptoms not a candidate for any aggressive intervention given complex medical issues, etc (17) Pulmonary hypertension: Plan: severe - as seen on echo multifactorial including REJI/OHS, COPD, etc 3 L NC O2; O2 sats goal 88-92% Plan DNR/DNI sister updated at bedside yesterday Admission and Anticipated Discharge Date Admission Date: January 30, 2022 Subjective no events overnight used BIPAP faithfully last pm denies any new complaints during the visit today I called and spoke with Dr Donis at [facility] [place] (bio medical technician) he reports that patient wears the BIPAP very little most weeks she takes the BIPAP mask off frequently at night they have tried multiple types of masks to help with comfort they have counseled Ms Riggins on the consequences of not using BIPAP during my rounds today I again reinforced the need for her to use BIPAP Review of Systems Review of Systems: gen - fatigue cv - no chest pain pulm - dyspnea if she moves quickly in bed GI - no pain, no nausea Physical Exam Physical Exam: gen - morbidly obese, NAD eyes - ptosis left eye - chronic mouth - MMM neck - difficult to assess JVD, but suspect some JVD heart - irregularly irregular, RR, s1 s2, 2/6 systolic murmur LSB lungs - decreased BS bases; scattered rales; CTA b/l apices abd - obese, soft, NT, ND, BS+ ext - SEVERE edema from feet all the way to the hips -- 4+ edema/lymphedema, pulses feet 2+ b/l skin - ulcer on dorsum L foot clean, optifoam in place Results & Data Results & Data ([facility]) Vital Signs (Past 12 Hours) Vital Signs Temp Pulse Pulse Resp BP Pulse Ox Pulse Ox 02/01/22 22:30 75 23 93 02/01/22 21:19 02/01/22 19:00 36.7 C 80 20 140/94 90 02/01/22 15:38 36.4 C L 73 18 113/64 93 02/01/22 12:22 36.8 C 73 20 108/63 94 02/01/22 11:47 92 O2 Del Method O2 Flow Rate O2 Flow Rate FiO2 02/01/22 22:30 40 02/01/22 21:19 Nasal Cannula 1.5 02/01/22 19:00 02/01/22 15:38 Nasal Cannula 2.0 02/01/22 12:22 Nasal Cannula 2.0 02/01/22 11:47 1.5 Laboratory Results Laboratory Results - last 24 hr 02/01/22 02/01/22 02/01/22 06:23 06:23 11:05 PT 25.1 H INR 2.5 H ABG pH 7.40 ABG pCO2 78 H ABG pO2 83 ABG HCO3 48 H ABG O2 Saturation 96.9 H ABG Base Excess 19.0 H Anthony Test Pos Oxygen Given 1.5 L Sodium 146 H Potassium 3.4 L Chloride 98 Carbon Dioxide > 45 H* Anion Gap TNP BUN 31 H Creatinine 1.03 Est Cr Clr Drug Dosing 71.6 Est GFR ( Amer) 61.6 Est GFR (Non-Af Amer) 53.1 BUN/Creatinine Ratio 30.1 H Glucose 117 H Calcium 8.4 L Diagnostic Findings blood cx's negative urine culture - e.coli PG Care Time/CCT Total # of Minutes Spent Total Time Spent with Patient: Total time spent is greater than 50% in coordination of care (as documented) at patient's floor/unit and/or counseling patient: Coding Level of Care Code 73481 Subseq Hosp Care Lvl 2 Diagnoses Acute on chronic respiratory failure with hypoxia and hypercapnia J96.21; J96.22 Acute metabolic encephalopathy G93.41 Acute on chronic systolic heart failure I50.23 Acute on chronic right-sided congestive heart failure I50.813 Hypothyroidism E03.9 Acute UTI N39.0 Elevated troponin R77.8 Hypernatremia E87.0 Atrial fibrillation I48.91 History of DVT (deep vein thrombosis) Z86.718 GERD (gastroesophageal reflux disease) K21.9 COPD (chronic obstructive pulmonary disease) J44.9 Hypertension I10 Morbid obesity with BMI of 45.0-49.9, adult E66.01; Z68.42 Ptosis H02.409 Rotator cuff syndrome of right shoulder M75.101 Pulmonary hypertension I27.20
[2022-02-02] MEDS: LEVOTHYROXINE SODIUM 25 MCG TABLET PO SCH (04:45)
[2022-02-02 07:38] LABS: INR 2.1 (0.9-1.1); Prothrombin Time 21.7 Seconds (9.0-12.0)
[2022-02-02 07:53] LABS: BUN Creatinine Ratio 30.6 (10-20); Calcium 8.5 mg/dl (8.5-10.1); Creatinine Clr Calc Pharmacy 86.5 ml/min; Est GFR (African American) 77.7 ml/min; Potassium 3.3 mmol/L (3.5-5.1)
[2022-02-02] MEDS: PANTOprazole 40 MG TAB PO SCH ×2 (08:04→19:47)
[2022-02-02] MEDS: acetaZOLAMIDE 250 MG TAB PO SCH ×2 (08:04→19:45)
[2022-02-02] MEDS: METOPROLOL SUCC 25MG EXT REL TAB PO SCH (08:04)
[2022-02-02] MEDS: CEFDINIR 300 MG CAP PO SCH ×2 (08:04→19:46)
[2022-02-02] MEDS: FAMOTIDINE 20 MG TAB PO SCH ×2 (08:04→19:47)
--- NOTE | 2022-02-02 08:43 | Pulmonology Progress Note ---
Date of Service February 02, 2022 Assessment & Plan (1) Cor pulmonale: (2) Volume overload: (3) Acute on chronic respiratory failure with hypoxia and hypercapnia: (4) Morbid obesity with BMI of 45.0-49.9, adult: (5) Pulmonary hypertension: Plan 2D echo 01/31/2022: EF 45-50%, mild global hypokinesis, mild concentric LVH, type II diastolic dysfunction, mildly dilated RV with mildly reduced RV systolic function, severe pulmonary hypertension Chest x-ray 01/30/2022 personally reviewed: Portable film, good respiratory effort, bilateral costophrenic and cardiophrenic angles are blunted, increased pulmonary vascular markings, increased cardiac silhouette --Acute on chronic hypoxic hypercapnic respiratory failure Hypoxia is most likely from pulmonary edema with systolic and diastolic heart failure Hypercapnia is most likely from underlying REJI/OHS Continue with diuretics to keep the patient negative balance Continue with BiPAP nightly and as needed shortness of breath Keep O2 saturation between 88-92% --Metabolic alkalosis Likely compensation to chronic metabolic acidosis on top of diuretic use Continue to monitor --Pulmonary hypertension Severe Likely type II from systolic and diastolic CHF REJI/OHS also playing a part Plan for diuresis as above -- Ex-smoker Quit approximately 10 years ago --A. fib On warfarin Plan: In/out: -500 mL, -3.1 L since coming to the hospital Continue with BiPAP nightly and as needed shortness of breath Recommend incentive spirometry No further recommendation from pulmonary perspective. We will sign off. Please call directly with any questions Case was discussed with RACHAEL Pena at bedside as well as Dr. Contreras Please note the above document was generated using voice recognition software. It may contain grammatical, syntax or spelling errors.Any formal questions or concerns about the content, text or information contained within the body of this dictation should be directly addressed to the provider for clarification. Admission and Anticipated Discharge Date Admission Date: January 30, 2022 Subjective Patient seen and examined at bedside. No acute distress, no adverse events overnight. Use BiPAP at night Denies any headache, no nausea, no vomiting Says that she is feeling better Fair appetite. No chest pain, no shortness of breath Review of Systems Review of Systems: All systems reviewed & are unremarkable except as noted in Subjective Physical Exam Physical Exam: Constitutional: No acute distress HEENT: EOMI, PERRLA Respiratory system: Decreased air entry bilaterally, no wheeze, no rhonchi, positive crackles bilateral lower lobe CVS: S1-S2 positive, no murmurs or gallops Abdomen: Soft, nontender, nondistended, positive bowel sounds x4, obese Extremities: +2 pulses bilaterally radialis/ dorsalis pedis, no cyanosis, +2 pitting edema bilateral lower extremity, positive anasarca Neuro: Awake alert oriented x3 Psych: Normal mood and affect G/U: Positive Alvarez Skin: no rashes, warm and dry Lymphatic: no cervical or axillary lymphadenopathy Results & Data Results & Data ([facility]) Vital Signs (Past 12 Hours) Vital Signs Temp Pulse Pulse Resp BP Pulse Ox O2 Del Method 02/02/22 07:49 36.4 C L 74 22 137/82 91 Nasal Cannula 02/02/22 03:55 36.8 C 73 20 126/79 97 BiPAP 02/02/22 03:30 71 19 98 02/01/22 23:35 36.9 C 77 20 124/72 98 BiPAP 02/01/22 22:30 75 23 93 02/01/22 21:19 Nasal Cannula O2 Flow Rate FiO2 02/02/22 07:49 2 02/02/22 03:55 02/02/22 03:30 40 02/01/22 23:35 02/01/22 22:30 40 02/01/22 21:19 1.5 Laboratory Results 01/31/22 06:23 02/02/22 07:02 PG Care Time/CCT Total # of Minutes Spent Total Time Spent with Patient: Total time spent is greater than 50% in coordination of care (as documented) at patient's floor/unit and/or counseling patient: Coding Level of Care Code 73331 Subseq Hosp Care Lvl 2 Diagnoses Cor pulmonale I27.81 Volume overload E87.70 Acute on chronic respiratory failure with hypoxia and hypercapnia J96.21; J96.22 Morbid obesity with BMI of 45.0-49.9, adult E66.01; Z68.42 Pulmonary hypertension I27.20
[2022-02-02] MEDS ORDERED: POTASSIUM CHLORIDE CRTAB 20 MEQ TABCR PO STA (09:11)
--- NOTE | 2022-02-02 11:44 | Hospitalist Progress Note ---
Date of Service February 02, 2022 Assessment & Plan (1) Acute on chronic respiratory failure with hypoxia and hypercapnia: Plan: acute component 2nd to noncompliance with BIPAP in the setting of decompensated CHF, UTI, etc. chronic component - OHS/REJI, COPD, Cor pulmonale, severe Pulm HTN. appreciate pulmonary consultation. cont BIPAP faithfully with naps/HS. She is tolerating this now and seems committed to wearing it once she leaves the hospital continue diamox 250mg BID x 2 more days due to significant alkalosis-improving continue to hold lasix today but hopefully resume tomorrow if bicarb continues to improve patient counseled by multiple providers on importance of compliance with BIPAP. (2) Acute metabolic encephalopathy: Plan: 2nd hypercapnea. ammonia level noted to be normal. CT head w/o acute process. UTI could be contributing. now resolved with Rx of both issues. (3) Acute on chronic systolic heart failure: Plan: Echo this admission - biventricular failure. EF 45-50% with right ventricular systolic failure. Still significantly hypervolemic with severe LE edema. Bicarb on BMP is >45 and now improved with starting diamox ABG results noted with pH 7.4. Diamox 250mg BID x 2 more days. continue to hold lasix today; hopefully can resume in am. Cont metoprolol succinate. (4) Acute on chronic right-sided congestive heart failure: Plan: Right-sided CHF 2nd to severe pulmonary HTN in the setting of OHS/REJI/COPD. See #3 above. (5) Hypothyroidism: Plan: TSH in November and now this admission mildly high. Given her volume issues reasonable to treat. Started synthroid 25mcg daily. Repeat TSH 6 weeks. (6) Acute UTI: Plan: 2nd e.coli. s/p ertapenem since admission. Spoke with pharmacy - despite h/o keflex allergy they feel we can trial her on omnicef 300mg BID. Apparently has tolerated rocephin in the past. Reasonable to finish treatment course with omnicef albeit cautiously-last dose 02/[address]-will find out if chronic (7) Elevated troponin: Plan: 2nd to myocardial demand ischemia in setting of acute/chronic respiratory failure, UTI, decompensated CHF, etc. No evidence of ACS. (8) Hypernatremia: Plan: Total body fluid overloaded but has water deficit. Na now within normal range at 144 Na levels have been mildly high since November 2021. In light of her significant CHF may need to accept Na Levels of 145-150 in order to keep fluid balance negative. Re-Check BMP am. (9) Atrial fibrillation: Plan: Rates controlled. Cont BB. INR 2.1 today -- coumadin had been held but was resumed on 02/01 - reduced total weekly dose by about 10%; thus, reduce daily dose to 7mg from 7.5mg. INR am. (10) History of DVT (deep vein thrombosis): Plan: 2+ years ago after ankle fracture, on Coumadin. INR 2.1 today -- see above. INR am. Suspect high INR due to liver dysfunction in setting of right sided CHF w/ pa ssive congestion of liver. (11) GERD (gastroesophageal reflux disease): Plan: PPI twice daily. (12) COPD (chronic obstructive pulmonary disease): Plan: History of, with a continuous O2 requirement of 3 L NC. No exacerbation at this time. (13) Hypertension: Plan: Cont metoprolol Controlled (14) Morbid obesity with BMI of 45.0-49.9, adult: Plan: BMI 45 (15) Ptosis: Plan: left eye chronic 2nd to previous meningioma resection?? would not pursue w/u at this time (16) Rotator cuff syndrome of right shoulder: Plan: treat pain symptoms not a candidate for any aggressive intervention given complex medical issues, etc (17) Pulmonary hypertension: Plan: severe - as seen on echo multifactorial including REJI/OHS, COPD, etc 3 L NC O2; O2 sats goal 88-92% Plan DNR/DNI Dispo-downgrade to med/surg and then possibly back to [facility] tomorrow Admission and Anticipated Discharge Date Admission Date: January 30, 2022 Subjective Pt feels she needs repositioned in the bed and this is causing her to feel SOB. Otherwise reports compliance with the BiPAP and is tolerating it now better than previous. Has a mild cough occasionally. Is eating and moving bowels regularly. Tele with Afib,rates 60-80s Review of Systems Review of Systems: All systems reviewed & are unremarkable except as noted in HPI & below Physical Exam Physical Exam: gen - morbidly obese, NAD eyes - ptosis left eye - chronic mouth - MMM neck - difficult to assess JVD, but suspect some JVD heart - irregularly irregular, RR, s1 s2, 2/6 systolic murmur LSB lungs - decreased BS bases; scattered rales; CTA b/l apices abd - obese, soft, NT, ND, BS+ ext - SEVERE edema from feet all the way to the hips -- 4+ edema/lymphedema, pulses feet 2+ b/l skin - ulcer on dorsum L foot clean, optifoam in place Results & Data Results & Data ([facility]) Vital Signs (Past 12 Hours) Vital Signs Temp Pulse Pulse Resp BP Pulse Ox O2 Del Method 02/02/22 11:14 36.3 C L 67 18 111/68 94 Nasal Cannula 02/02/22 08:00 Nasal Cannula 02/02/22 07:49 36.4 C L 74 22 137/82 91 Nasal Cannula 02/02/22 03:55 36.8 C 73 20 126/79 97 BiPAP 02/02/22 03:30 71 19 98 O2 Flow Rate FiO2 02/02/22 11:14 1 02/02/22 08:00 1.5 02/02/22 07:49 2 02/02/22 03:55 02/02/22 03:30 40 Laboratory Results 01/31/22 06:23 02/02/22 07:02 PG Care Time/CCT Total # of Minutes Spent Total Time Spent with Patient: Total time spent is greater than 50% in coordination of care (as documented) at patient's floor/unit and/or counseling patient: Coding Level of Care Code 28603 Subseq Hosp Care Lvl 2 Diagnoses Acute on chronic respiratory failure with hypoxia and hypercapnia J96.21; J96.22 Acute metabolic encephalopathy G93.41 Acute on chronic systolic heart failure I50.23 Acute on chronic right-sided congestive heart failure I50.813 Hypothyroidism E03.9 Acute UTI N39.0 Elevated troponin R77.8 Hypernatremia E87.0 Atrial fibrillation I48.91 History of DVT (deep vein thrombosis) Z86.718 GERD (gastroesophageal reflux disease) K21.9 COPD (chronic obstructive pulmonary disease) J44.9 Hypertension I10 Morbid obesity with BMI of 45.0-49.9, adult E66.01; Z68.42 Ptosis H02.409 Rotator cuff syndrome of right shoulder M75.101 Pulmonary hypertension I27.20
[2022-02-02] MEDS ORDERED: HYDROCODONE/ACETAMOPHEN 5/325MG TAB PO ONE (13:35)
[2022-02-02] MEDS: WARFARIN SOD 5 MG TAB PO SCH (15:23)
[2022-02-02] MEDS: WARFARIN SOD 2 MG TAB PO SCH (15:24)
[2022-02-02] MEDS: DOCUSATE SODIUM/SENNA 50/8.6MG TAB PO SCH (19:46)
[2022-02-03] MEDS: LEVOTHYROXINE SODIUM 25 MCG TABLET PO SCH (04:35)
[2022-02-03 06:51] LABS: Basophils # (auto) 0.02 K/uL (0-0.2); Basophils % (auto) 0.3 %; Eosinophils # (auto) 0.14 K/uL (0-0.50); Eosinophils % (auto) 2.3 %; Hematocrit (blood only) 37.3 % (34.1-44.9); Hemoglobin 10.8 g/dl (12.0-16.0); Immature Granulocytes # (auto) 0.04 K/uL (0.00-0.02); Immature Granulocytes % (auto) 0.7 %; Lymphocytes # (auto) 1.58 K/uL (1.2-3.4); Lymphocytes % (auto) 26.4 %; Mean Corpuscular Hemoglobin 30.9 pg (25.0-34.0); Mean Corpuscular Volume 106.6 fL (80.0-100.0); Mean Platelet Volume 10.6 fL (9.4-12.3); Monocytes # (auto) 0.62 K/uL (0.24-0.82); Monocytes % (auto) 10.4 %; Neutrophils # (auto) 3.59 K/uL (1.4-6.5); Neutrophils % (auto) 59.9 %; Platelet Count 136 K/uL (130-400); RDW Coefficient of Variation 16.5 % (11.5-14.5); RDW Standard Deviation 64.2 fL (36.4-46.3); White Blood Count 5.99 K/ul (4.8-10.8)
[2022-02-03 06:58] LABS: INR 2.6 (0.9-1.1); Prothrombin Time 26.3 Seconds (9.0-12.0)
[2022-02-03 07:13] LABS: Base Excess ABG 14.5 mEq/L (-9-1.8); HCO3 ABG 43 mmol/L (19-24); Oxygen Saturation ABG 99.9 % (90-95); PCO2 ABG 67 mmHg (35-46); PO2 ABG 112 mmHg (80-95); pH ABG 7.41 (7.35-7.45)
[2022-02-03 07:20] LABS: Allen Test Pos (Pos)
[2022-02-03 07:32] LABS: Albumin Globulin Ratio 1.3 (0.9-2); Albumin Level 3.1 gm/dl (3.4-5.0); BUN Creatinine Ratio 27.3 (10-20); Bilirubin,Total 0.7 mg/dl (0.2-1.0); Calcium 8.6 mg/dl (8.5-10.1); Creatinine Clr Calc Pharmacy 94.4 ml/min; Est GFR (African American) 87.5 ml/min; Est GFR (Non-African American) 75.5 ml/min; Globulin 2.4 gm/dl (2.5-4.0); Magnesium 2.3 mg/dl (1.7-2.4); Potassium 3.1 mmol/L (3.5-5.1); Total Protein 5.5 gm/dl (6.0-8.3)
[2022-02-03] MEDS ORDERED: POTASSIUM CHLORIDE CRTAB 20 MEQ TABCR PO STA (08:16)
[2022-02-03] MEDS ORDERED: CYANOCOBALAMIN (B-12) 500 MCG TABLET PO SCH (09:00)
[2022-02-03] MEDS ORDERED: FOLIC ACID 1 MG TAB PO SCH (09:00)
[2022-02-03] MEDS ORDERED: POTASSIUM CHLORIDE CRTAB 20 MEQ TABCR PO SCH (09:00)
[2022-02-03] MEDS: PANTOprazole 40 MG TAB PO SCH (10:01)
[2022-02-03] MEDS: FAMOTIDINE 20 MG TAB PO SCH (10:02)
[2022-02-03] MEDS: METOPROLOL SUCC 25MG EXT REL TAB PO SCH (10:02)
[2022-02-03] MEDS: DOCUSATE SODIUM/SENNA 50/8.6MG TAB PO SCH (10:03)
[2022-02-03] MEDS: CEFDINIR 300 MG CAP PO SCH (10:04)
[2022-02-03] MEDS: acetaZOLAMIDE 250 MG TAB PO SCH (10:04)
[2022-02-03 11:42] VITALS: O2SAT 94
--- NOTE | 2022-02-03 13:38 | Discharge Summary ---
Date of Service February 03, 2022 Admission HPI Per Admitting Provider Valorie Riggins is a 76-year-old female with past medical history significant for COPD on 3 NC at all times, breast cancer s/p right lobectomy, benign brain tumor s/p craniotomy, A. fib, hypertension, history of DVT, lumbar spinal stenosis, Raynaud's who presents today from [facility] unresponsive. Yesterday, Per sister reports she was on her self, was talking about joining the [employer] and going to boot camp. Currently has no gluteal region refused to wear her BiPAP and this morning was unresponsive for staff. Upon presentation to ED, she is on BiPAP, however unresponsive and cannot provide history. She is hemodynamically stable, moderately hypertensive 148/96, came in on 6 L NC reportedly had not been hypoxic upon arrival, now on BiPAP with SPO2 >95%, afebrile. VBG 7.2 //47. Mildly elevated troponin 65.0, T bili mildly elevated 1.2, renal function at baseline, sodium 148, otherwise electrolytes within normal limits. No leukocytosis, procalcitonin and lactate within normal limits, however UA appears grossly infected with 4+ bacteria, >30 WBCs, 3+ leukoesterase, with blood and protein. TSH mildly elevated 5.110, free T4 pending. Head CT without evidence of acute process, CXR showed cardiomegaly with pulmonary vascular congestion small pleural effusions with dependent consolidation. Principal Diagnosis Acute on chronic respiratory failure with hypoxia and hypercapnia, Acute encephalopathy, UTI Discharge Exam gen - morbidly obese, NAD eyes - ptosis left eye - chronic mouth - MMM neck - difficult to assess JVD, but suspect some JVD heart - irregularly irregular, RR, s1 s2, 2/6 systolic murmur LSB lungs - CTAB no wcr abd - obese, soft, NT, ND, BS+ ext - SEVERE edema from feet all the way to the hips -- 4+ edema/lymphedema, pulses feet 2+ b/l skin - ulcer on dorsum L foot clean, optifoam in place Discharge Data Allergies Allergy/AdvReac Type Severity Reaction Status Date / Time cephalexin Allergy Severe HIVES Verified 12/15/21 11:42 strawberry Allergy Severe hives Verified 12/15/21 11:42 sulfamethoxazole Allergy Mild Rash Verified 12/15/21 11:42 [From Bactrim] trimethoprim [From Bactrim] Allergy Mild Rash Verified 12/15/21 11:42 amoxicillin [From Augmentin] AdvReac Mild Diarrhea, Verified 02/01/22 12:26 nausea clavulanic acid AdvReac Mild Diarrhea, Verified 02/01/22 12:26 [From Augmentin] nausea Unclassified Drugs Allergy Mild DIAL SOAP Uncoded 12/15/21 11:42 - RASH Consultations 01/30/22 10:13 ED Decision to Admit Stat 01/31/22 16:51 Consult Pulmonology Routine 01/31/22 18:13 Consult Psychiatry Routine Ordered Studies 01/30/22 08:35 CT head/brain wo con Stat ECHO Hospital Course (1) Acute on chronic respiratory failure with hypoxia and hypercapnia: acute component 2nd to noncompliance with BIPAP in the setting of decompensated CHF, UTI, and multiple medications including muscle relaxers, gabapentin, anticholinergics for overactive bladder chronic component - OHS/REJI, COPD, Cor pulmonale, severe Pulm HTN. appreciate pulmonary consultation. cont BIPAP faithfully with naps/HS. She is tolerating this now and seems committed to wearing it once she leaves the hospital continue diamox 250mg BID x 1 more day due to significant alkalosis-improving ok to restart lasix today after being held for contraction alkalosis patient counseled by multiple providers on importance of compliance with BIPAP. (2) Acute metabolic encephalopathy: 2nd hypercapnia, medications, UTI, etc as above. ammonia level noted to be normal. CT head w/o acute process. now resolved (3) Acute on chronic systolic heart failure: Echo this admission - biventricular failure. EF 45-50% with right ventricular systolic failure. Still significantly hypervolemic with severe LE edema. Bicarb on BMP was >45 and now improved with starting diamox and continued consistent use of BiPAP ABG results noted with pH 7.4. Diamox 250mg BID x 1 more day on discharge. restart lasix today Cont metoprolol succinate. (4) Acute on chronic right-sided congestive heart failure: Right-sided CHF 2nd to severe pulmonary HTN in the setting of OHS/REJI/COPD. (5) Hypothyroidism: TSH in November and now this admission mildly high. Given her volume issues reasonable to treat. Started synthroid 25mcg daily. Repeat TSH 4-6 weeks. (6) Acute UTI: 2nd e.coli. s/p ertapenem since admission. Spoke with pharmacy - despite h/o keflex allergy they feel we can trial her on omnicef 300mg BID. Apparently has tolerated rocephin in the past. Reasonable to finish treatment course with omnicef albeit cautiously-last dose 02/[address]-removed prior to discharge advise discontinuing all meds for overactive bladder (7) Elevated troponin: 2nd to myocardial demand ischemia in setting of acute/chronic respiratory failure, UTI, decompensated CHF, etc. No evidence of ACS. (8) Hypernatremia: Total body fluid overloaded but has water deficit. Na now within normal range at 144 and stable Na levels have been mildly high since November 2021. In light of her significant CHF may need to accept Na Levels of 145-150 in order to keep fluid balance negative. follow as outpt (9) Atrial fibrillation: Rates controlled. Cont BB. INR 2.5 on day of discharge -- coumadin had been held but was resumed on 02/01 - reduced total weekly dose by about 10%; thus, reduce daily dose to 7mg from 7.5mg. INR as outpt (10) History of DVT (deep vein thrombosis): 2+ years ago after ankle fracture, on Coumadin. INR as above Suspect high INR due to liver dysfunction in setting of right sided CHF w/ passive congestion of liver. (11) GERD (gastroesophageal reflux disease): PPI twice daily. (12) COPD (chronic obstructive pulmonary disease): History of, with a continuous O2 requirement of 3 L NC. No exacerbation at this time. (13) Hypertension: Cont metoprolol Controlled (14) Morbid obesity with BMI of 45.0-49.9, adult: BMI 45 (15) Ptosis: left eye chronic 2nd to previous meningioma resection?? would not pursue w/u at this time (16) Rotator cuff syndrome of right shoulder: treat pain symptoms not a candidate for any aggressive intervention given complex medical issues, etc reduce gabapentin to 100mg po tid from 400mg dc muscle relaxer (17) Pulmonary hypertension: severe - as seen on echo multifactorial including REJI/OHS, COPD, etc 3 L NC O2; O2 sats goal 88-92% Plan DNR/DNI Dispo-dc to [facility] today Total Time Total Time Spent Total Time Spent (In Minutes): 40 min Discharge Plan Discharge Items Patient Disposition: Transfer [facility] Reason For Visit: OBTUNDED, ?UTI Discharge Diagnosis: Acute on chronic respiratory failure with hypoxia and hypercapnea, UTI Condition on Discharge: Fair Activity: Resume your previous activity Non-emergency contact: Primary Care Provider Call non-emergency contact if: you have any medication questions and your symptoms worsen Follow-up/Referrals: [facility] [Primary Care Provider] - Diet: Low Sodium (2gm) Addtl Attending Provider Instructions: Please finish out one more dose of your antibiotic for the UTI. You should not take medications for overactive bladder as this will put you at increased risk for UTI. These medications were discontinued. Your muscle relaxer was also discontinued as this can contribute to altered mental status. You were found to have low thyroid function and started on levothyroxine for thyroid hormone replacement-please check a TSH in 4-6 weeks. Because of your initial altered mental status, your gabapentin was discontinued- this will be restarted on discharge at a lower dose of 100mg three times a day. Please take one more day of Diamox twice a day. It is very important that you continue to wear your BiPAP every night to prevent you from having to come back to the hospital. Pending Studies at Discharge: No Stand-Alone Forms: [facility] Skilled Items Patient informed of condition?: Yes DNR: Yes Discharge Level of Care: Skilled Communicable Disease: No Discharge Prognosis: Improving Lines: None Urinary Catheter: No Medications and DC Order Prescriptions: New cefdinir 300 mg Capsule 300 mg PO BID Qty: 1 0RF acetazolamide 250 mg Tablet 250 mg PO BID 1 Days Qty: 2 0RF levothyroxine [Synthroid] 25 mcg Tablet 25 mcg PO DAILYBB Qty: 30 0RF gabapentin 100 mg capsule 100 mg PO TID Qty: 90 0RF Continued artifi.tears(hypromellose)(PF) 0.3 % drops 1 drops OPB BID Rx Instructions: for dry eyes Lactobacillus acidophilus Capsule 0 mg PO DAILY Rx Instructions: give at lunch sennosides [senna] 8.6 mg Tablet 8.6 mg PO DAILY PRN (Reason: Constipation) famotidine 20 mg Tablet 20 mg PO BID magnesium hydroxide [Milk of Magnesia] 400 mg/5 mL Suspension 30 ml PO DIRECTED PRN (Reason: Constipation) Rx Instructions: NO BM FOR 3 DAYS ferrous sulfate 325 mg (65 mg iron) Tablet,Delayed Release (Dr/Ec) 325 mg PO QAM acetaminophen [Tylenol] 325 mg Tablet 650 mg PO Q6 PRN (Reason: Pain/fever) calcium carbonate-vitamin D3 [Calcium 500 + D] 500 mg(1,250mg) -200 unit Tablet 1 tab PO BID loratadine [Claritin] 10 mg tablet 10 mg PO QAM multivitamin Tablet 1 tab PO DAILY furosemide 40 mg tablet 80 mg PO BID polyethylene glycol 3350 [Miralax] 17 gram Powder In Packet 17 g PO DAILY sennosides-docusate sodium [Senna-S] 8.6-50 mg Tablet 1 tab-cap PO BID cyanocobalamin (vitamin B-12) [Vitamin B-12] 1,000 mcg Tablet 1,000 mcg PO DAILY pantoprazole 40 mg tablet,delayed release (DR/EC) 40 mg PO BID Rx Instructions: Start 09/25/21 for 2 weeks & then reduce to dailyy folic acid 1 mg Tablet 1 mg PO DAILY diclofenac sodium 1 % gel 2 g TOPICAL QID Rx Instructions: FOR SHOULDER/WRIST PAIN melatonin 5 mg Tablet 5 mg PO HS menthol-zinc oxide [Calmoseptine] 0.44-20.6 % Ointment 1 applic TOPICAL .Q SHIFT PRN (Reason: ..) ipratropium-albuterol 0.5 mg-3 mg(2.5 mg base)/3 mL Solution For Nebulization 3 ml NEB Q4R PRN (Reason: shortness of breath or wheezing) Qty: 100 0RF metoprolol tartrate 25 mg Tablet 25 mg PO Q12 Qty: 30 0RF potassium chloride 20 mEq tablet,ER particles/crystals 20 meq PO DAILY ropinirole 0.25 mg tablet 0.25 mg PO HS PRN (Reason: restless leg(s)) Qty: 30 0RF Changed warfarin 5 mg tablet 7 mg PO DAILY Qty: 30 0RF Discontinued tizanidine 4 mg capsule 4 mg PO Q8H PRN (Reason: Muscle Pain) Qty: 0 oxybutynin chloride 5 mg tablet extended release 24hr 5 mg PO DAILY Qty: 30 5RF gabapentin 400 mg Capsule 400 mg PO TID Gemtesa 75 mg tablet 75 mg PO DAILY Discharge Orders: Discharge Order (Routine); Ordered 02/03/22 Ordered By: Melisa Contreras Admission Data Admit Date/Time: 01/30/22 10:32 Attending Provider: Melisa Contreras Admit Provider: Bhupendra Taylor [facility] Other Providers: [facility] ; Bhupendra Taylor ; Osvaldo Teresa ; Vicky Marx ; Payal Ramos ; Karina Del Toro Coding Level of Care Code D/C DAY MANAGEMENT >30 MINS Diagnoses Acute on chronic respiratory failure with hypoxia and hypercapnia J96.21; J96.22 Acute metabolic encephalopathy G93.41 Acute on chronic systolic heart failure I50.23 Acute on chronic right-sided congestive heart failure I50.813 Hypothyroidism E03.9 Acute UTI N39.0 Elevated troponin R77.8 Hypernatremia E87.0 Atrial fibrillation I48.91 History of DVT (deep vein thrombosis) Z86.718 GERD (gastroesophageal reflux disease) K21.9 COPD (chronic obstructive pulmonary disease) J44.9 Hypertension I10 Morbid obesity with BMI of 45.0-49.9, adult E66.01; Z68.42 Ptosis H02.409 Rotator cuff syndrome of right shoulder M75.101 Pulmonary hypertension I27.20
[2022-02-03 15:22] VITALS: BP 146/82; PULSE 69; TEMP 98.1
== END 2022-02-03 16:03 | DRG 189 ==
LOC: ED 08:31 → SUATTDRO 10:32 → EDINP 10:32 → 2S 13:40

== ENCOUNTER 2024-04-14 08:44 | Inpatient (IN) ==
--- NOTE | 2024-04-14 09:13 | CT Scan Report ---
CT head/brain wo con CLINICAL HISTORY: 79 years-old Female with neuro deficit, acute stroke suspected. Acute strokelike s ymptoms TECHNIQUE: Multiple axial CT images of the head were obtained without contrast. A dose lowering tech nique was utilized adhering to the principles of ALARA. CT DOSE: 580.53 mGy.cm COMPARISON: 01/30/2022 FINDINGS: A small focus of left frontal encephalomalacia is unchanged and consistent with a remote insult. Ther e is age-related involutional change noting mild subcortical and periventricular microangiopathic dis ease. There is no hemorrhage, mass effect, or evidence of acute territorial ischemia by CT criteria. Gonzales-white matter differentiation is preserved. No extra-axial fluid collection is seen. Prior left-sided craniotomy. The paranasal sinuses, mastoid air cells, and middle ear cavities are c lear. IMPRESSION: 1. No acute intracranial abnormality. 2. Chronic findings as above. ACT 112: Negative or not required by law. The above report was generated using voice recognition software. It may contain grammatical, syntax o r spelling errors. Electronically signed by: Jorge Valadez M.D. 04/14/2024 9:11 AM
[2024-04-14 09:29] LABS: Basophils # (auto) 0.06 K/uL (0.00-0.20); Basophils % (auto) 0.9 %; Eosinophils # (auto) 0.28 K/uL (0.00-0.50); Eosinophils % (auto) 4.3 %; Hematocrit (blood only) 44.5 % (37.0-47.0); Hemoglobin 13.8 g/dl (12.0-16.0); Immature Granulocytes # (auto) 0.03 K/uL (0.01-0.20); Immature Granulocytes % (auto) 0.5 %; Lymphocytes % (auto) 27.4 %; Mean Corpuscular Hemoglobin 32.2 pg (25.0-34.0); Mean Corpuscular Volume 103.7 fL (80.0-100.0); Mean Platelet Volume 10.5 fL (9.4-12.4); Monocytes # (auto) 0.73 K/uL (0.11-0.59); Monocytes % (auto) 11.1 %; Neutrophils # (auto) 3.66 K/uL (1.40-6.50); Neutrophils % (auto) 55.8 %; Platelet Count 119 K/uL (130-400); RDW Coefficient of Variation 16.5 % (11.5-14.5); RDW Standard Deviation 63.7 fL (36.4-46.3); Red Blood Count 4.29 M/uL (4.20-5.40); White Blood Count 6.56 K/ul (4.8-10.8)
[2024-04-14 09:42] LABS: Albumin Globulin Ratio 1.7 (0.9-2); Albumin Level 3.8 gm/dl (3.4-5.0); BUN Creatinine Ratio 28.4 (10-20); Bilirubin,Total 0.9 mg/dl (0.2-1.0); Calcium 9.6 mg/dl (8.6-10.3); Creatinine Clr Calc Pharmacy 57.6 ml/min; Globulin 2.3 gm/dl (2.5-4.0); Potassium 4.4 mmol/L (3.5-5.1); Total Protein 6.1 gm/dl (6.0-8.3)
[2024-04-14 09:49] LABS: Troponin I High Sensitivity 44.7 pg/ml (0-14)
[2024-04-14 09:57] LABS: INR 2.5 (0.9-1.1); Partial Thromboplastin Ratio 1.2; Partial Thromboplastin Time 32 Seconds (21-31); Prothrombin Time 25.3 Seconds (9.0-12.0)
--- OUTSIDE RECORDS SUMMARY | 2024-04-14 10:05 | External Medical Summary | Summary of Care ---
Author Name Unknown Organization [facility] Address [address] [place] [address] Phone [phone] Care Team Providers Care Leather Stretcher Name Role Phone Beatrice Mercado DO Primary Care Provider Reason for Visit * Reason Onset Date Comments Appointment 04/09/2024 Encounter Details Date Type Department Care Team (Late st Contact Info) Description 04/09/2024 Telephone Urogynecology [facility] [address] [place] [id number] Ulises Pinzon MD [address] [place] [id number] Appointment Allergies Active Allergy Reactions Criticality Noted Date Comments Amoxicillin Hives 01/23/2024 Amoxicillin-Pot Clavulanate Hives 01/23/20 24 Cephalexin Hcl 12/04/2004 hives Soap Itching High 07/10/2014 Dial soap Food (See Comments) Hives Medium 04/21/2006 Sulfa Antibiotics Rash 01/23/2024 documented as of this encounter (statuses as of 04/10/2024) Medications Medication Sig Dispensed Refills Start Date End Date Status FUROSEMIDE 40 MG OR TABS 1 TABLET every three days 0 12/04/2004 Active NORVASC 10 MG OR TABS 1 TABLET DAILY 0 12/04/2004 Active HYDROCHLOROTHIAZIDE 25 MG OR TABS 1 TABLET DAILY 0 12/04/2004 Active LISINOPRIL 40 MG PO TABS 1 TABLET DAILY 0 08/26/2005 Active CENTRUM SILVER ULTRA WOMENS PO TABS daily Active SIMVASTATIN 40 MG PO TABS daily Active RANITIDINE HCL 150 MG PO CAPS daily Active LIPITOR 40 MG PO TABS daily Act farrukh TYLENOL EXTRA STRENGTH 500 MG PO TABS None Entered Active ASPIRIN 81 MG PO TABS daily Act farrukh TRAMADOL HCL 50 MG PO TABS as directed Active Bumetanide 2 MG Oral Tablet Take 1 Tablet by mouth in the morning and 1 Tablet before bedtime. 12/09/2023 Active Hydrocortisone Acetate 25 MG Rectal Suppository (Anusol-HC) Administer 1 Suppository into the rectum in the morning and 1 Suppository before bedtime. Active Calcium 500 + D3 250-12.5 MG-MCG Oral Tablet Chewable (Ca Phosphate-Cholecalcife rol) Take by mouth. Active Warfarin Sodium 4 MG Oral Tablet (Coumadin) Take by mouth every evening. Active Cyanocobalamin 1000 MCG Oral Tablet (Cyanocobalamin) Take 1 Tablet by mouth in the morning. Active Ferrous Sulfate 325 (65 Fe) MG Oral Tablet Delayed Release Take 1 Tablet by mouth in the morning. Active Folic Acid 1 MG Oral Tablet (True Folic Acid) Take 1 Tablet by mouth in the morning. Active oxygen IN GAS Use 2 L/min(Oxygen) as directed continuous. Active Ipratropium-Albuterol 0.5-2.5 (3) MG/3ML Inhalation Solution (Duoneb) Inhale 3 mL by mouth in the morning and 3 mL at noon and 3 mL in the evening and 3 mL before bedtime. Active Lactobacillus Oral Tablet Take 1 Tablet by mouth in the morning. Active Levothyroxine Sodium 100 MCG Oral Tablet (Levoxyl) Take 1 Tablet by mouth daily first thing in the morning. (at least 30 min prior to breakfast or other meds) Active Melatonin 5 MG Oral Tablet Disintegrating Take by mouth. Active Metoprolol Tartrate 25 MG Oral Tablet (Lopressor) Take 1 Tablet by mouth in the morning and 1 Tablet before bedtime. Active Polyethylene Glycol 3350 17 GM/SCOOP Oral Powder (MiraLax) Take 17 g by mouth in the morning. Active Alum & Mag Hydroxide-Simeth 400-400-40 MG/5ML Oral Suspension (Mylanta Maximum Strength) Take 30 mL by mouth as needed for Indigestion (Indigestion, heartburn, gas, nausea). Active oxyBUTYnin Chloride ER 5 MG Oral Tablet Extended Release 24 Hour (Ditropan XL) Take 1 Tablet by mouth in the morning. Active Pantoprazole Sodium 40 MG Oral Tablet Delayed Release (Protonix) Take 1 Tablet by mouth in the morning. Active Potassium Chloride ER 20 MEQ Oral Tablet Extended Release Take 1 Tablet by mouth in the morning. Active rOPINIRole HCl 0.25 MG Oral Tablet (Requip) Take 1 Tablet by mouth at bedtime as needed for Other (restless legs). Active Senna 8.6 MG Oral Capsule Take 1 Tablet by mouth daily as needed for Other (constipation). Active Spironolactone 50 MG Oral Tablet (Aldactone) Take 1 Tablet by mouth in the morning and 1 Tablet before bedtime. Active Witch Chiara-Glycerin External Pad (A.E.R. Witch Chiara) Apply 1 Pad topically to affected area as needed for Other (To anus after every BM and prn for hemorrhoid discomfort). Active documented as of this encounter (statuses as of 04/10/2024) Active Problems Problem Noted Date Diagnosed Date Primary localized osteoarthrosis, lower leg 04/13 Knee joint replacement status 01/16/2008 Shoulder joint replacement status 12/16/2004 Morbid obesity, BMI not known 12/16/2004 documented as of this encounter (statuses as of 04/10/2024) Social History Tobacco Use Types Packs/Day Years Used Date Smoking Tobacco: Former Cigarettes Q uit: 06/12/1972 Smokeless Tobacco: Never Alcohol Use Standard Drinks/Week Comments No 0 (1 standard drink = 0.6 oz pur e alcohol) Utilities Answer Date Recorded Do you have trouble paying y our heating, water, or electric bill? (Adult - for ages 18 years and over) Not on file 11/29/2023 Is your family able to pay t he heat, water, or electric bill? (Household - for ages 0-17 years) Not on file 11/29/2023 Does your family have access to good internet? (Household - for ages 0-17 years) Not on file 11/29/2023 Social Connections Answer Date Recorded How often do you feel lonely or isolated from those around you? (Adult - for ages 18 years and over) Not on file 11/29/2023 Sex and Gender Information Value Date Recorded Sex Assigned at Not on file Gender Identity Not on file Sexual Orientation Not on file Job Start Date Occupation Industry Not on file Not on file Not on file documented as of this encounter Miscellaneous Notes * Addendum Note - Ulises Pinzon MD - 04/10/2024 8:18 AM EDTAddended by: ULISES PINZON on: 04/10/2024 08:18 AM Modules accepted: Orders * Addendum Note - Iraj Melendez LPN - 04/09/2024 4:51 PM EDTAddended by: IRAJ MELENDEZ on: 04/09/2024 04:51 PM Modules accepted: Orders * Telephone Encounter - Iraj Melendez LPN - 04/09/2024 4:49 PM EDT Received message that [facility] is attempting to schedule retrograde cystogram. Pendedorder to provider for review. * Telephone Encounter - Breana Ulloa OSA - 04/09/2024 4:31 PM EDT snf called back stating he called radiology to get retrograde cystogram scheduled and theytold him there was no order to schedule from. Please assist. Thank you [phone] for resident appts * Telephone Encounter - Iraj Melendez LPN - 04/09/2024 10:19 AM EDT Received message from [facility] looking to set up retrograde cystogram. Call placed [facility] to advise that they must reach out to radiology at [phone] to schedule retrogradecystogram. No answer. Lm on with callback # provided. * Telephone Encounter - Kasandra Perez OSA - 04/09/2024 8:37 AM EDT [facility]'s penit[facility]iary called in looking to get orders for a retrograde cystogram documented in this encounter Plan of Treatment Scheduled Orders Name Type Priority Associated Diagnoses Orde r Schedule FLUORO CYSTOGRAM Medical Imaging Routine Urinary incontinence with continuous leakage Ordered: 04/10/2024 Health Maintenance Due Date Last Done Comments DXA Scan 1945 Depression Screening 1958 Hepatitis C Screening 02/28/1964 DTap/Tdap Vaccines (1 - Tdap) 1965 Zoster Vaccines (1 of 2) 02/28/1996 TSH 12/18/2005 12/18/2004 Pneumococcal Vaccine: 65+ Ye ars (1 of 1 - PCV) 2011 COVID-19 Vaccine (1 - 2023-2 5 season) 2024 Influenza Vaccine (FLU shot) (#1) 2024 HPV (Gardasil) Vaccine Aged Out No lo nger eligible based on patient's age to complete this topic Hepatitis B Vaccine Aged Out No longe r eligible based on patient's age to complete this topic MENINGOCOCCAL (MENACTRA/MENVEO) Aged Out No longer eligible based on patient's age to complete this topic documented as of this encounter Medical Devices Implanted Type Area Magnetic Tape Winder Device Identifier Shelf Expiration Date Model / Serial / Lot Block [place] [id number] 12 - [id number] Implanted:Qty: 1 on 04/20/2006 at [place] [facility] [place] Left: Knee [employer] [id number] / / Patella Poly Nexgen - [id number] Implanted:Qty: 1 on 04/20/2006 at [place] [facility] [place] [employer] [id number] / / Femoral Component Implanted:Qty: 1 on 04/20/2006 at [place] [facility] [place] Left: Knee [employer] [id number] -[id number] / / [id number] Block [place] [id number] 12 - [id number] Implanted:Qty: 1 on 04/27/2011 at [place] [facility] [place] Right: Knee [employer] 10/11/2015 [id number] / / [id number] Femur Porous Lps - [id number] Implanted:Qty: 1 on 04/27/2011 at [place] [facility] [place] Right: Knee [employer] 11/10/2018 [id number] / / [id number] documented as of this encounter Visit Diagnoses Diagnosis Urinary incontinence with continuous leakage- Primary Continuous leakage documented in this encounter Advance Directives * Full Code (Latest Code Status on File) Date Activated Date Inactivated Comments 04/27/2011 10:38 AM 04/30/2011 4:59 PM This orde r reflects the patients wishes and were consensually agreed upon. Care Teams Leather Stretcher Relationship Specialty Start Date End Date Beatrice Mercado DO PCP - General Family Medicine 07/10/14 documented as of this encounter
[2024-04-14] MEDS: ACETAMINOPHEN 1,000 MG/100 ML VIAL IV STA (10:40)
--- NOTE | 2024-04-14 10:50 | Emergency Department Note ---
Impression & Plan Observed seizure-like activity, AMS (altered mental status) ED Provider Note CHIEF COMPLAINT: Altered mental status, possible seizure HISTORY OF PRESENT ILLNESS: This 79-year-old female patient with past medical history of lumbar spinal stenosis, breast cancer, pressure ulcer, DVT, hyperkalemia, kidney injury, bladder lesion, incontinence, morbid obesity, renal mass, pulmonary hypertension, meningioma, atrial fibrillation, hypertension, seizure GERD, COPD presents to the emergency department with complaints of altered mental status and seizure-like activity this morning per longterm staff. Per EMS, nursing report stated there were "lots of upper extremity motion" and patient appeared to be postictal afterwards. And route, the patient was able to answer questions about current activities, date and year. She stated there is a football game in [employer] today. Patient is complaining of a headache and is noted to be on warfarin. She states she has not been able to move her lower extremities since early 1999' but does not know why. REVIEW OF SYSTEMS: A review of systems was performed with positives and pertinent negatives listed in the history of present illness. 10 systems were reviewed and are otherwise negative. ALLERGIES: see below MEDICATIONS: see below PMH: see below SOCIAL HISTORY: see below DDx: Intracranial hemorrhage, intracranial mass, seizure, CVA, infectious etiology, encephalopathy among others. PHYSICAL EXAM: Vital signs reviewed. General: Chronically ill-appearing 79-year-old female chronically ill, in no significant distress. HEENT: No scleral icterus, PERRLA, neck supple. Atraumatic. Dry MM, poor dentition. Cardiovascular: Regular rate and rhythm, no extra sounds. Pulmonary: Clear to auscultation bilaterally, normal work of breathing. Abdomen: Soft, obese, nontender, nondistended, positive bowel sounds. Musculoskeletal: Atraumatic, pitting lower extremity peripheral edema. muscle atrophy. Neurologic: Patient somnolent but arousable and answers date and month without difficulty. Speech is clear Skin: Warm, dry, no rash EMERGENCY DEPARTMENT COURSE/MDM: This patient was evaluated and appeared to be in no significant distress. IV access was obtained and laboratory work was drawn. The patient was placed on the base draw operator to be in a rate controlled atrial fibrillation. The patient had no seizure activity while emergency department. CT scan of the head was performed and reveals no evidence of acute intracranial abnormality. Patient's laboratory work is fairly reassuring patient's troponin is slightly elevated but is downtrending on repeat. There is a history of seizure listed on the patient's past medical history however patient and her family deny. She does have a history of meningioma and craniotomy she will put her at higher risk. Patient's case was discussed with the hospitalist service who was agreed to evaluate the patient for admission and further management. Patient is aware of the plan and agrees. MONITORING: An order for cardiac monitoring was placed and the patient is noted to be in a NSR at 63 beats per minute. RADIOLOGY: Head CT per radiology: IMPRESSION: 1. No acute intracranial abnormality. 2. Chronic findings as above. EKG: To my interpretation reveals atrial fibrillation at 61 beats per minute. Normal ST segments. QTc of 428. No PVC, no PAC. DISPOSITION: Admission Past Med/Surg History Problem List AMS (altered mental status) (Acute) Observed seizure-like activity (Acute) Breast cancer in situ Morbid obesity DVT prophylaxis DNR (do not resuscitate) Pain management Hypothyroidism Chronic hypoxic respiratory failure Chronic combined systolic and diastolic CHF (congestive heart failure) Chronic systolic (congestive) heart failure Afib Rhinovirus Seizure-like activity Vesicovaginal fistula Nephrolithiasis (Chronic) Lumbar spinal stenosis Ductal carcinoma in situ (DCIS) of left breast Abnormal left breast mammogram Status post core needle biopsy December 07, 2017 Intraductal carcinoma, grade 3 Estrogen receptor negative and progesterone receptor negative Status post lumpectomy 02/23/2018 Stage pTis pNX Status post completion of radiation therapy May 12, 2018. She received 5130 cGy. Degenerative joint disease (DJD) of hip Neuropathy Pressure ulcer of coccygeal region, stage 2 Hematuria DVT (deep venous thrombosis) Hyperkalemia Elevated alkaline phosphatase level Edema GLORIA (acute kidney injury) Lesion of bladder Gross hematuria Anemia Eosinophilic cystitis (Chronic) Incontinence (Chronic) Urinary frequency Chronic prescription opiate use Morbid obesity with BMI of 45.0-49.9, adult Hematoma Respiratory failure with hypercapnia (Acute) Volume overload Ptosis Rotator cuff syndrome of right shoulder Anxiety Left renal mass Bilateral hydronephrosis Hypothyroidism Pulmonary hypertension severe Cor pulmonale Acute and chronic respiratory failure, unspecified whether with hypoxia or hypercapnia Meningioma s/p resection per remote [place] records Lymphedema upper and lower extremities, stable per pt Anosmia 2/2 resection of benign brain tumor Peripheral neuropathy Atrial fibrillation dx few years ago - PCP monitors - on ASA, BB. Not on additional anticoagulation due to fall risk and prior meningioma. Hyperlipidemia Hypertension controlled, stable per pt Seizure sz first episode 2014, discovered brain tumor; additional sz S/P BRAIN TUMOR REMOVAL IN 2017; last seizure 2017. No longer on seizure medications. Stress incontinence in female History of craniotomy HX OF BENIGN TUMOR REMOVAL IN 2017-TEMPORAL MENINGIOMA Osteoarthritis History of laminectomy LUMBAR History of total knee replacement BILATERAL History of total shoulder replacement RIGHT History of ankle fusion RIGHT History of DVT (deep vein thrombosis) 20+ years ago/after ankle fx GERD (gastroesophageal reflux disease) controlled, stable per pt Spinal stenosis with neuropathy History of benign brain tumor s/p removal 2016 Raynauds disease COPD (chronic obstructive pulmonary disease) controlled, stable per pt; last albuterol treatment last evening-pt states that is routine TID History of lumpectomy of left breast Left breast lumpectomy with needle localization (02/22/18): LMA#4 at [facility] -- LUE LIMB RESTRICTION Medical History Cor pulmonale, chronic Sleep apnea Obesity hypoventilation syndrome Limb alert care status On home O2 [facility] resident Mixed incontinence Hx of pneumonia due to Klebsiella pneumoniae [place] (hard of hearing) Chronic constipation History of cellulitis Cognitive communication deficit Morbid obesity History of COVID-19 Immobility Hearing deficit History of breast cancer Dizziness Heart valve regurgitation Surgical History History of bladder surgery History of mastectomy S/P IVC filter H/O hernia repair H/O Spinal surgery S/P PICC central line placement History of ovarian cystectomy History of repair of hiatal hernia History of breast biopsy Family History Mother , Passed age 62 of [place] Diabetes Coronary heart disease Hypertension Stroke Father , Passed age 68 of accident (fell down steps) No problems noted. Brother Family history of diabetes mellitus Diabetes Brother No problems noted. Sister Slow to wake up after anesthesia twin sister Breast cancer Twin - Left Breast - Lumpectomy/Chemo/RXT Sister No problems noted. Sister No problems noted. Sister No problems noted. Sister No problems noted. Son Sarcoidosis Son No problems noted. Daughter No problems noted. Grandmother (Paternal) Family history of diabetes mellitus Grandmother (Maternal) Family history of diabetes mellitus Mother Family history of diabetes mellitus Social History Smoking Status: Never smoker Tobacco Type: Cigarettes Cigarettes Per Day: HX OF SOCIAL CIGARETTE, QUIT 25 YEARS AGO.; Second Hand Exposure: No; Do You Dip or Chew Tobacco: No; Tobacco Cessation Education Requested by Patient: No Hx Alcohol Use: No Hx Substance Use: No Preferred Language: Yi Communication Ability: Effective Communication Ability Comment: per records Visual Impairment: No Limitations Hearing Ability: Use of Hearing Aid Infant Lead Teacher Required: No Beliefs That Will Affect Care: None marital status: Current Living Situation: Shelter Current Living Situation Comment: [facility] [place] [facility] 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 How many Children do You have: 3 Other Information That Helps Us Care for You: No Feels Safe at Home: Yes Safety Concerns: Feels Safe At This Time caffeine: No Assistive Devices: Wheelchair Allergies Allergies Allergy/AdvReac Type Severity Reaction Status Date / Time cephalexin Allergy Severe HIVES Verified 04/14/24 13:07 strawberry Allergy Severe hives Verified 04/14/24 11:39 sulfamethoxazole Allergy Mild Rash Verified 12/23/23 10:22 [From Bactrim] trimethoprim [From Bactrim] Allergy Mild Rash Verified 12/23/23 10:22 amoxicillin [From Augmentin] AdvReac Mild Diarrhea, Verified 04/14/24 11:39 nausea clavulanic acid AdvReac Mild Diarrhea, Verified 04/14/24 11:39 [From Augmentin] nausea Unclassified Drugs Allergy Mild DIAL SOAP Uncoded 04/14/24 11:39 - RASH Home Meds Home Medications Medication Instructions Recorded Confirmed magnesium hydroxide 400 mg/5 mL 30 ml PO DIRECTED PRN 06/12/19 04/14/24 oral suspension (Milk of Magnesia) Constipation sennosides 8.6 mg tablet (senna) 8.6 mg PO DAILY PRN Constipation 06/12/19 04/14/24 Lactobacillus acidophilus 1 cap PO DAILY 07/03/19 04/14/24 ferrous sulfate 325 mg (65 mg 325 mg PO QAM 10/10/19 04/14/24 iron) tablet,delayed release acetaminophen 325 mg tablet 650 mg PO Q6 PRN Pain/fever 12/07/19 04/14/24 (Tylenol) calcium 500 mg (as 1 tab PO BID 12/07/19 04/14/24 carbonate)-vitamin D3 5 mcg (200 unit) tablet (Calcium 500 + D) cyanocobalamin (vitamin B-12) 1,000 mcg PO DAILY 09/28/21 04/14/24 1,000 mcg tablet (Vitamin B-12) diclofenac sodium 1 % topical gel 2 g topical QID 09/28/21 04/14/24 folic acid 1 mg tablet 1 mg PO DAILY 09/28/21 04/14/24 melatonin 5 mg tablet 5 mg PO HS 09/28/21 04/14/24 pantoprazole 40 mg tablet,delayed 40 mg PO DAILY 09/28/21 04/14/24 release polyethylene glycol 3350 17 gram 17 g PO DAILY 09/28/21 04/14/24 oral powder packet (Miralax) sennosides 8.6 mg-docusate sodium 1 tab-cap PO BID 09/28/21 04/14/24 50 mg tablet (Senna-S) aluminum-mag hydroxide-simethicone 30 ml PO QID PRN 04/04/23 04/14/24 400 mg-400 mg-40 mg/5 mL oral susp Heartburn/Gas/Nausea artificial tears(hypromellose) 0.4 1 drp ophthalmic (eye) BID 04/14/24 04/14/24 % eye drops bisacodyl 10 mg rectal suppository 10 mg RI DAILY PRN Constipation 04/14/24 04/14/24 (Dulcolax (bisacodyl)) carbamide peroxide 6.5 % ear drops 2 drp otic (ear) QID 04/14/24 04/14/24 (Debrox) eucalyptus-menthol oral mucosal 1 portillo mucous membrane Q2H PRN Cough 04/14/24 04/14/24 lozenge hydrocortisone acetate 25 mg 25 mg RI BID 04/14/24 04/14/24 rectal suppository ipratropium 0.5 mg-albuterol 3 mg 3 ml NEB QID COPD 04/14/24 04/14/24 (2.5 mg base)/3 mL nebulization soln levothyroxine 100 mcg tablet 100 mcg PO DAILY 04/14/24 04/14/24 mineral oil-isopropyl myristat 1 applic topical DAILY 04/14/24 04/14/24 lotion multivitamin with minerals 1 tab PO DAILY 04/14/24 04/14/24 warfarin 4 mg tablet 4 mg PO HS 04/14/24 04/14/24 witch santa 20 % topical pads 1 pad topical DAILY PRN Hemorrhoids 04/14/24 04/14/24 Previous Rx's Medication Instructions Recorded metoprolol tartrate 25 mg tablet 25 mg PO Q12 #30 tabs 10/05/21 gabapentin 100 mg capsule 100 mg PO TID #90 caps 02/03/22 ropinirole 0.25 mg tablet 0.25 mg PO HS PRN restless leg(s) 02/03/22 #30 tabs fosfomycin tromethamine 3 gram 3 g PO ONCE 1 dose #1 ea 04/15/24 oral packet Results & Data (ED) Vital Signs Vital Signs - 24 hr 04/14/24 08:41 04/14/24 08:41 04/14/24 09:09 Temperature 36.4 C L Temperature Source Oral Pulse Rate 64 71 Pulse Rate [Apical] Respiratory Rate 20 Respiratory Depth Normal Normal Blood Pressure 121/89 Blood Pressure [Right Arm] Blood Pressure Mean 99 Blood Pressure Mean [Right Arm] Blood Pressure Position [Right Arm] Pulse Oximetry 92 Oxygen Delivery Method Room Air Room Air Oxygen Flow Rate Sepsis Recent Fever Within 48 Hours No Sepsis New/Unexplained Change in Mental Status No Sepsis Action Taken by Nursing No Action Required 04/14/24 10:12 04/14/24 10:42 Temperature Temperature Source Pulse Rate Pulse Rate [Apical] 63 Respiratory Rate 24 Respiratory Depth Blood Pressure Blood Pressure [Right Arm] 119/53 L Blood Pressure Mean Blood Pressure Mean [Right Arm] 75 Blood Pressure Position [Right Arm] Lying Pulse Oximetry 90 95 Oxygen Delivery Method Room Air Nasal Cannula Oxygen Flow Rate 2 Sepsis Recent Fever Within 48 Hours Sepsis New/Unexplained Change in Mental Status Sepsis Action Taken by Shelter Medications Current Medication List: was personally reviewed by me Laboratory Data Attestation: I reviewed the patient's lab results. 04/14/24 09:14 04/15/24 08:33 Lab Results 11/02/24 11/02/24 Range/Units 09:14 10:54 WBC 6.56 (4.8-10.8) K/ul RBC 4.29 (4.20-5.40) M/uL Hgb 13.8 (12.0-16.0) g/dl Hct 44.5 (37.0-47.0) % MCV 103.7 H (80.0-100.0) fL MCH 32.2 (25.0-34.0) pg MCHC 31.0 L (32.0-36.0) g/dL RDW Std Deviation 63.7 H (36.4-46.3) fL RDW Coeff of Tatyana 16.5 H (11.5-14.5) % Plt Count 119 L (130-400) K/uL MPV 10.5 (9.4-12.4) fL Immature Gran % (Auto) 0.5 % Neut % (Auto) 55.8 % Lymph % (Auto) 27.4 % Lucas % (Auto) 11.1 % Eos % (Auto) 4.3 % Baso % (Auto) 0.9 % Neut # (Auto) 3.66 (1.40-6.50) K/uL Lymph # (Auto) 1.80 (1.20-3.40) K/uL Lucas # (Auto) 0.73 H (0.11-0.59) K/uL Eos # (Auto) 0.28 (0.00-0.50) K/uL Baso # (Auto) 0.06 (0.00-0.20) K/uL Immature Gran # (Auto) 0.03 (0.01-0.20) K/uL PT 25.3 H (9.0-12.0) Seconds INR 2.5 H (0.9-1.1) APTT 32 H (21-31) Seconds PTT Ratio 1.2 Sodium 138 (136-145) mmol/L Potassium 4.4 (3.5-5.1) mmol/L Chloride 104 (98-107) mmol/L Carbon Dioxide 26 (21-32) mmol/L Anion Gap 8 (3-11) BUN 31 H (6-23) mg/dl Creatinine 1.09 (0.6-1.2) mg/dl Est Cr Clr Drug Dosing 57.6 ml/min eGFR 52.00 BUN/Creatinine Ratio 28.4 H (10-20) Glucose 171 H (70-99(Fasting)) mg/dl Calcium 9.6 (8.6-10.3) mg/dl Magnesium 2.0 (1.7-2.4) mg/dl Total Bilirubin 0.9 (0.2-1.0) mg/dl AST 16 (13-39) U/L ALT 12 (7-52) U/L Alkaline Phosphatase 107 H (34-104) U/L Troponin I High Sens 44.7 H 37.8 H (0-14) pg/ml Total Protein 6.1 (6.0-8.3) gm/dl Albumin 3.8 (3.4-5.0) gm/dl Globulin 2.3 L (2.5-4.0) gm/dl Albumin/Globulin Ratio 1.7 (0.9-2) Procalcitonin 0.07 (0-0.5) ng/ml Prolactin 13.21 ng/ml Administered Medications Albuterol (Albut/Ipratrop 3mg/0.5mg Neb 3 Ml Vial) 3 ml NEB QIDR FIDEL; Protocol Stop: 05/14/24 16:59 Last Admin: 04/15/24 15:31 Dose: 3 ml Documented By: Admin: 04/15/24 11:01 Dose: 3 ml Documented By: Admin: 04/15/24 07:36 Dose: 3 ml Documented By: Admin: 04/14/24 19:57 Dose: 3 ml Documented By: Admin: 04/14/24 18:17 Dose: Not Given Documented By: PHILLIP Artificial Tears (Artificial Tears) 1 drops OP BID FIDEL Stop: 05/14/24 20:59 Last Admin: 04/15/24 08:19 Dose: 1 drops Documented By: [facility] Admin: 04/14/24 21:44 Dose: 1 drops Documented By: [facility] Hydrocortisone (Hydrocortisone Acetate 25 Mg Supp) 25 mg RI BID FIDEL Stop: 05/14/24 20:59 Last Admin: 04/15/24 08:19 Dose: 25 mg Documented By: [facility] Admin: 04/14/24 21:46 Dose: 25 mg Documented By: [facility] Ceftriaxone Sodium (Rocephin) 2,000 mg in 50 mls @ 100 mls/hr IV Q24H FIDEL Stop: 04/19/24 17:59 Last Infusion: 04/14/24 19:55 Dose: Infused Documented By: Admin: 04/14/24 19:20 Dose: 100 mls/hr Documented By: ASCENCION Levothyroxine Sodium (Levothyroxine Sodium 100 Mcg Tablet) 100 mcg PO DAILYBB FIDEL Stop: 05/15/24 06:29 Last Admin: 04/15/24 05:21 Dose: 100 mcg Documented By: ASCENCION Melatonin (Melatonin 3 Mg Tab) 6 mg PO HS FIDEL Stop: 05/14/24 20:59 Last Admin: 04/14/24 21:45 Dose: 6 mg Documented By: ASCENCINO Metoprolol Tartrate (Metoprolol Tartrate 25 Mg Tab) 25 mg PO Q12 FIDEL Stop: 05/14/24 20:59 Last Admin: 04/15/24 08:19 Dose: 25 mg Documented By: Admin: 04/14/24 21:46 Dose: 25 mg Documented By: ASCENCION Polyethylene Glycol (Polyethylene (Miralax) 17 Gm Pack) 17 gm PO DAILY FIDEL Stop: 05/15/24 08:59 Last Admin: 04/15/24 08:22 Dose: 17 gm Documented By: ALEA Warfarin Sodium (Warfarin Sod 4 Mg Tab) 4 mg PO DAILY@1600 FIDEL Stop: 05/15/24 15:59 Last Admin: 04/15/24 16:06 Dose: 4 mg Documented By: ALEA Discontinued Medications Gabapentin (Gabapentin 100 Mg Cap) 100 mg PO TID FIDEL Stop: 05/14/24 15:51 Last Admin: 04/14/24 21:46 Dose: 100 mg Documented By: Admin: 04/14/24 17:58 Dose: Not Given Documented By: ORTEGA Acetaminophen (Ofirmev) 1,000 mg in 100 mls @ 400 mls/hr IV NOW STA Stop: 04/14/24 10:42 Last Infusion: 04/14/24 11:03 Dose: Infused Documented By: Admin: 04/14/24 10:40 Dose: 400 mls/hr Documented By: DARLENE Ceftriaxone Sodium (Rocephin) 2,000 mg in 50 mls @ 100 mls/hr IV NOW STA Stop: 04/15/24 14:32 Last Infusion: 04/15/24 15:18 Dose: Infused Documented By: Admin: 04/15/24 14:16 Dose: 100 mls/hr Documented By: [facility] Imaging Data Radiologist's Impression: Head CT 04/14/24 08:48 CT head/brain wo con CLINICAL HISTORY: 79 years-old Female with neuro deficit, acute stroke suspected. Acute strokelike symptoms TECHNIQUE: Multiple axial CT images of the head were obtained without contrast. A dose lowering technique was utilized adhering to the principles of ALARA. CT DOSE: 580.53 mGy.cm COMPARISON: 01/30/2022 FINDINGS: A small focus of left frontal encephalomalacia is unchanged and consistent with a remote insult. There is age-related involutional change noting mild subcortical and periventricular microangiopathic disease. There is no hemorrhage, mass effect, or evidence of acute territorial ischemia by CT criteria. Gonzales-white matter differentiation is preserved. No extra-axial fluid collection is seen. Prior left-sided craniotomy. The paranasal sinuses, mastoid air cells, and middle ear cavities are clear. IMPRESSION: 1. No acute intracranial abnormality. 2. Chronic findings as above. ACT 112: Negative or not required by law. The above report was generated using voice recognition software. It may contain grammatical, syntax or spelling errors. Electronically signed by: Jorge Valadez M.D. 04/14/2024 9:11 AM Discharge Plan Visit Data Chief Complaint: Seizure Stated Complaint: Seizure ED Provider: Katerin Mckeon Discharge Problem: Observed seizure-like activity, AMS (altered mental status) Patient Disposition: Admitted As Inpatient Condition: Fair Discharge Instructions Interventions: ED Discharge Assessment Last Done: 04/14/24 16:17 Discharge Problem: AMS (altered mental status) Qualifiers: Altered mental status type: somnolence Qualified Code(s): R40.0 - Somnolence
--- NOTE | 2024-04-14 13:11 | History & Physical Report ---
Date of Service April 14, 2024 Assessment & Plan (1) Seizure-like activity: Plan: This is a 79-year-old female with past medical history of lumbar spinal stenosis, breast cancer, meningioma, A-fib, hypertension, seizures, GERD who presented to the ED on 04/14/2024 after experiencing seizure-like activity this morning at [facility]. Now AxOx3 complaining of headache. Patient has hx of meningoma, last seizure 2017. Craniotomy 2017. Not on seizure medications outpatient. concern for infectious etiology. CBC without leukocytosis, H/H stable BMP without abnormalities of electrolytes or kidney function Procalcitonin 0.07 prolactin 13.21 Urine culture pending started on IV Rocephin 04/14 previous UTI on 03/17 grew pansensitive klebsiella EKG without ischemic changes, A fib which is chronic for patient. Troponin mildly elevated at 44.7 --> 37.8 likely demand, patient asymptomatic from cardiac standpoint CXR: cardiomegaly w/ interstitial pulmonary edema. Small pleural effusions w/ mild basilar consolidation which may represent atelectasis vs pneumonia. Head CT without acute changes. 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 Last seen 11/2023 - d/c flomax, added oxybutynin for incontinence IV rocephin started in ED UC pending. Remainder of plan as above. (3) Rhinovirus: Plan: respiratory Biofire + for rhinovirus supportive care, encourage PO fluid intake tylenol for pain or fever Plan Chronic conditions: A fib: continue Metoprolol and Warfarin INR 2.5 Constipation: miralax GERD: PPI COPD: daily inhalers, on 2L O2 @ baseline Hypothyroidism: Synthroid Diet: heart healthy DVT prophylaxis: home warfarin Disposition: admit to medical Code status: full, discussed with patient at time of admission. History of Present Illness Primary Care Provider: [facility] This is a 79-year-old female with past medical history of lumbar spinal stenosis, breast cancer, meningioma, A-fib, hypertension, seizures, GERD who presented to the ED on 04/14/2024 after experiencing seizure-like activity this morning at [facility]. The patient was seen and examined at bedside. Patient reports that she took her a.m. medications and felt fine. She then states that voices started to sound muffled and then she is not sure what happened. Patient states that since coming to the hospital she feels that she has returned back to her baseline. She is alert and oriented x 3. She denies fevers, chills, chest pain, shortness of breath. She has been having urinary issues and has been following with urology for this. 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 She states that she will have lower abdominal pain when "cyst burst in her bladder". States that this happens often. She is on 2 L of oxygen at baseline. She did still have a headache at time of my encounter. Sp[facility] at [facility] Staff reports that this morning patient started to have upper body tremors and prolonged staring. she was not able to respond to staff during this time period. Afterwards staff reports she had a headache and demonstrated postictal behaviors. Allergies Allergy/AdvReac Type Severity Reaction Status Date / Time cephalexin Allergy Severe HIVES Verified 04/14/24 13:07 strawberry Allergy Severe hives Verified 04/14/24 11:39 sulfamethoxazole Allergy Mild Rash Verified 12/23/23 10:22 [From Bactrim] trimethoprim [From Bactrim] Allergy Mild Rash Verified 12/23/23 10:22 amoxicillin [From Augmentin] AdvReac Mild Diarrhea, Verified 04/14/24 11:39 nausea clavulanic acid AdvReac Mild Diarrhea, Verified 04/14/24 11:39 [From Augmentin] nausea Unclassified Drugs Allergy Mild DIAL SOAP Uncoded 04/14/24 11:39 - RASH Home Medications Medication Instructions Recorded Confirmed Type magnesium hydroxide 400 mg/5 mL 30 ml PO DIRECTED PRN 06/12/19 04/14/24 History oral suspension (Milk of Magnesia) Constipation sennosides 8.6 mg tablet (senna) 8.6 mg PO DAILY PRN Constipation 06/12/19 04/14/24 History Lactobacillus acidophilus 1 cap PO DAILY 07/03/19 04/14/24 History ferrous sulfate 325 mg (65 mg 325 mg PO QAM 10/10/19 04/14/24 History iron) tablet,delayed release acetaminophen 325 mg tablet 650 mg PO Q6 PRN Pain/fever 12/07/19 04/14/24 History (Tylenol) calcium 500 mg (as 1 tab PO BID 12/07/19 04/14/24 History carbonate)-vitamin D3 5 mcg (200 unit) tablet (Calcium 500 + D) cyanocobalamin (vitamin B-12) 1,000 mcg PO DAILY 09/28/21 04/14/24 History 1,000 mcg tablet (Vitamin B-12) diclofenac sodium 1 % topical gel 2 g topical QID 09/28/21 04/14/24 History folic acid 1 mg tablet 1 mg PO DAILY 09/28/21 04/14/24 History melatonin 5 mg tablet 5 mg PO HS 09/28/21 04/14/24 History pantoprazole 40 mg tablet,delayed 40 mg PO DAILY 09/28/21 04/14/24 History release polyethylene glycol 3350 17 gram 17 g PO DAILY 09/28/21 04/14/24 History oral powder packet (Miralax) sennosides 8.6 mg-docusate sodium 1 tab-cap PO BID 09/28/21 04/14/24 History 50 mg tablet (Senna-S) metoprolol tartrate 25 mg tablet 25 mg PO Q12 #30 tabs 10/05/21 04/14/24 Rx gabapentin 100 mg capsule 100 mg PO TID #90 caps 02/03/22 04/14/24 Rx ropinirole 0.25 mg tablet 0.25 mg PO HS PRN restless leg(s) 02/03/22 04/14/24 Rx #30 tabs aluminum-mag hydroxide-simethicone 30 ml PO QID PRN 04/04/23 04/14/24 History 400 mg-400 mg-40 mg/5 mL oral susp Heartburn/Gas/Nausea oxybutynin chloride 5 mg 5 mg PO DAILY #30 tabs 12/07/23 04/14/24 Rx tablet,extended release 24 hr artificial tears(hypromellose) 0.4 1 drp ophthalmic (eye) BID 04/14/24 04/14/24 History % eye drops bisacodyl 10 mg rectal suppository 10 mg [place] DAILY PRN Constipation 04/14/24 04/14/24 History (Dulcolax (bisacodyl)) carbamide peroxide 6.5 % ear drops 2 drp otic (ear) QID 04/14/24 04/14/24 History (Debrox) eucalyptus-menthol oral mucosal 1 portillo mucous membrane Q2H PRN Cough 04/14/24 04/14/24 History lozenge hydrocortisone acetate 25 mg 25 mg [place] BID 04/14/24 04/14/24 History rectal suppository ipratropium 0.5 mg-albuterol 3 mg 3 ml NEB QID COPD 04/14/24 04/14/24 History (2.5 mg base)/3 mL nebulization soln levothyroxine 100 mcg tablet 100 mcg PO DAILY 04/14/24 04/14/24 History mineral oil-isopropyl myristat 1 applic topical DAILY 04/14/24 04/14/24 History lotion multivitamin with minerals 1 tab PO DAILY 04/14/24 04/14/24 History sodium phosphates 19 gram-7 118 ml [place] DAILY PRN Constipation 04/14/24 04/14/24 History gram/118 mL enema (Fleet Enema) warfarin 4 mg tablet 4 mg PO HS 04/14/24 04/14/24 History witch santa 20 % topical pads 1 pad topical DAILY PRN Hemorrhoids 04/14/24 04/14/24 History Past Med/Surg History Problem List Rhinovirus Seizure-like activity Vesicovaginal fistula Nephrolithiasis (Chronic) Lumbar spinal stenosis Ductal carcinoma in situ (DCIS) of left breast Abnormal left breast mammogram Status post core needle biopsy December 07, 2017 Intraductal carcinoma, grade 3 Estrogen receptor negative and progesterone receptor negative Status post lumpectomy 02/23/2018 Stage pTis pNX Status post completion of radiation therapy May 12, 2018. She received 5130 cGy. Degenerative joint disease (DJD) of hip Neuropathy Pressure ulcer of coccygeal region, stage 2 Hematuria DVT (deep venous thrombosis) Hyperkalemia Elevated alkaline phosphatase level Edema GLORIA (acute kidney injury) Lesion of bladder Gross hematuria Anemia Eosinophilic cystitis (Chronic) Incontinence (Chronic) Urinary frequency Chronic prescription opiate use Morbid obesity with BMI of 45.0-49.9, adult Hematoma Respiratory failure with hypercapnia (Acute) Volume overload Ptosis Rotator cuff syndrome of right shoulder Anxiety Left renal mass Bilateral hydronephrosis Hypothyroidism Pulmonary hypertension severe Cor pulmonale Acute and chronic respiratory failure, unspecified whether with hypoxia or hypercapnia Meningioma s/p resection per remote [place] records Lymphedema upper and lower extremities, stable per pt Anosmia 2/2 resection of benign brain tumor Peripheral neuropathy Atrial fibrillation dx few years ago - PCP monitors - on ASA, BB. Not on additional anticoagulation due to fall risk and prior meningioma. Hyperlipidemia Hypertension controlled, stable per pt Seizure sz first episode 2014, discovered brain tumor; additional sz S/P BRAIN TUMOR REMOVAL IN 2017; last seizure 2017. No longer on seizure medications. Stress incontinence in female History of craniotomy HX OF BENIGN TUMOR REMOVAL IN 2017-TEMPORAL MENINGIOMA Osteoarthritis History of laminectomy LUMBAR History of total knee replacement BILATERAL History of total shoulder replacement RIGHT History of ankle fusion RIGHT History of DVT (deep vein thrombosis) 20+ years ago/after ankle fx GERD (gastroesophageal reflux disease) controlled, stable per pt Spinal stenosis with neuropathy History of benign brain tumor s/p removal 2016 Raynauds disease COPD (chronic obstructive pulmonary disease) controlled, stable per pt; last albuterol treatment last evening-pt states that is routine TID History of lumpectomy of left breast Left breast lumpectomy with needle localization (02/22/18): LMA#4 at [facility] -- LUE LIMB RESTRICTION Medical History Cor pulmonale, chronic Sleep apnea Obesity hypoventilation syndrome Limb alert care status On home O2 [facility] resident Mixed incontinence Hx of pneumonia due to Klebsiella pneumoniae [place] (hard of hearing) Chronic constipation History of cellulitis Cognitive communication deficit Morbid obesity History of COVID-19 Immobility Hearing deficit History of breast cancer Dizziness Heart valve regurgitation Surgical History History of bladder surgery History of mastectomy S/P IVC filter H/O hernia repair H/O Spinal surgery S/P PICC central line placement History of ovarian cystectomy History of repair of hiatal hernia History of breast biopsy Family History Mother , Passed age 62 of [place] Diabetes Coronary heart disease Hypertension Stroke Father , Passed age 68 of accident (fell down steps) No problems noted. Brother Family history of diabetes mellitus Diabetes Brother No problems noted. Sister Slow to wake up after anesthesia twin sister Breast cancer Twin - Left Breast - Lumpectomy/Chemo/RXT Sister No problems noted. Sister No problems noted. Sister No problems noted. Sister No problems noted. Son Sarcoidosis Son No problems noted. Daughter No problems noted. Grandmother (Paternal) Family history of diabetes mellitus Grandmother (Maternal) Family history of diabetes mellitus Mother Family history of diabetes mellitus Social History Smoking Status: Never smoker Tobacco Type: Cigarettes Cigarettes Per Day: HX OF SOCIAL CIGARETTE, QUIT 25 YEARS AGO.; Second Hand Exposure: No; Do You Dip or Chew Tobacco: No; Tobacco Cessation Education Requested by Patient: No Hx Alcohol Use: No Hx Substance Use: No Preferred Language: Nepali Communication Ability: Effective Communication Ability Comment: per records Visual Impairment: No Limitations Hearing Ability: Use of Hearing Aid Teaching Supervisor Required: No Beliefs That Will Affect Care: None marital status: Current Living Situation: Half-Way Current Living Situation Comment: [facility] 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 How many Children do You have: 3 Other Information That Helps Us Care for You: No Feels Safe at Home: Yes Safety Concerns: Feels Safe At This Time caffeine: No Assistive Devices: Wheelchair Physical Exam 2 Constitutional: WD/WN, vitals as above Eyes: PERRL, conjunctivae normal, anicteric sclerae Respiratory: normal respiratory effort, lungs clear to auscultation Cardiovascular: RRR, no murmur, no edema Gastrointestinal (Abdomen): normal bowel sounds, soft, nontender, no hepatosplenomegaly Skin: no rashes, warm and dry Psychiatric: A+Ox3, euthymic affect Results & Data Results & Data Vital Signs (Past 12 Hours) Vital Signs Temp Pulse Pulse Resp BP BP Pulse Ox 04/14/24 13:04 61 04/14/24 12:02 60 17 132/85 98 04/14/24 10:42 95 04/14/24 10:12 63 24 119/53 L 90 04/14/24 09:09 71 04/14/24 08:41 04/14/24 08:41 36.4 C L 64 20 121/89 92 O2 Del Method O2 Flow Rate 04/14/24 13:04 04/14/24 12:02 Nasal Cannula 2 04/14/24 10:42 Nasal Cannula 2 04/14/24 10:12 Room Air 04/14/24 09:09 04/14/24 08:41 Room Air 04/14/24 08:41 Room Air Laboratory Results 04/14/24 09:14 04/14/24 09:14 Supervising Physician Co-Signing Physician Notes I personally saw and examined the patient. I independently reviewed the labs, EKG, imaging, problem list, medication list, past medical history and family history. I verified all saenz points and agree with Buffy Laurent PA-C with the following exceptions and/or additions: 79 year old female presents to the ER with seizure like activity. She reports being awake at the time with all 4 limbs moving and staff mentioned eyes darting. O/E A&Ox3, HS RRR, no murmurs, Chest CTAB, No CVA tenderness, Abdo SNT, chronic left sided weakness A/P Suspected UTI - unable to get UA on admission, ceftriaxone IV Seizure like activity - suspect this was more rigors, no plans on further workup unless further episode during admission, prolactin normal Rhinovirus - conservative management, 2 days of symptoms PG Care Time/CCT Total # of Minutes Spent Total Time Spent with Patient: Total time spent is greater than 50% in coordination of care (as documented) at patient's floor/unit and/or counseling patient: Coding Level of Care Code 66366 INT INP/OBS CARE 2/55MIN Diagnoses Seizure-like activity R56.9 UTI (urinary tract infection) N39.0 Hematuria presence: without hematuria Urinary tract infection type: site unspecified Rhinovirus B34.8 (2) UTI (urinary tract infection) Hematuria presence: without hematuria Urinary tract infection type: site unspecified Qualified Code(s): N39.0 - Urinary tract infection, site not specified
[2024-04-14] MEDS ORDERED: cefTRIAXone SODIUM 2,000 MG/50 ML BAG IV STA (13:29)
--- NOTE | 2024-04-14 13:55 | XRay Report ---
XR chest 2V PA/lateral HISTORY: 79 years-old Female altered mental status acutely altered mental status COMPARISON: 04/06/2023 TECHNIQUE: AP and lateral views of the chest FINDINGS: Cardiac silhouette is enlarged. Vascular congestion with interstitial coarsening. No pneumothorax. La yering pleural effusions with left basilar predominant consolidation. IVC filter. Right shoulder arth roplasty. IMPRESSION: 1. Cardiomegaly with interstitial pulmonary edema. 2. Small pleural effusions with mild left basilar consolidation which may represent atelectasis versu s pneumonia. ACT 112: Negative or not required by law. The above report was generated using voice recognition software. It may contain grammatical, syntax o r spelling errors. Electronically signed by: Jorge Valadez M.D. 04/14/2024 1:52 PM
[2024-04-14 15:39] LABS: Adenovirus PCR Not Detected (NotDetected); Bordetella parapertussis PCR Not Detected (NotDetected); Bordetella pertussis PCR Not Detected (NotDetected); Chlamydia pneumoniae PCR Not Detected (NotDetected); Coronavirus 229E PCR Not Detected (NotDetected); Coronavirus CoV-2 (COVID19)PCR Not Detected (NotDetected); Coronavirus HKU1 PCR Not Detected (NotDetected); Coronavirus NL63 PCR Not Detected (NotDetected); Coronavirus OC43PCR Not Detected (NotDetected); Human Metapneumovirus PCR Not Detected (NotDetected); Influenza A PCR Not Detected (NotDetected); Influenza B PCR Not Detected (NotDetected); Mycoplasma pneumoniae PCR Not Detected (NotDetected); Parainfluenza Virus 1 PCR Not Detected (NotDetected); Parainfluenza Virus 2 PCR Not Detected (NotDetected); Parainfluenza Virus 3 PCR Not Detected (NotDetected); Parainfluenza Virus 4 PCR Not Detected (NotDetected); Respiratory Syncytial VirusPCR Not Detected (NotDetected); Rhinovirus/Enterovirus PCR DETECTED (NotDetected)
[2024-04-14] MEDS ORDERED: bisacodyL 10 MG SUPP PR PRN (15:52)
[2024-04-14] MEDS ORDERED: rOPINIRole HCL 0.25 MG TABLET PO PRN (15:52)
[2024-04-14] MEDS ORDERED: MAGNESIUM HYDROXIDE SUSP 30 ML UDC PO PRN (15:52)
[2024-04-14] MEDS ORDERED: ALUMINUM/MAGNESIUM/SIMETH (MAALOX MAX) 30 ML UDC PO PRN (15:52)
[2024-04-14] MEDS ORDERED: SENNA 8.6 MG TAB PO PRN (15:52)
[2024-04-14] MEDS: GABAPENTIN 100 MG CAP PO SCH (17:58)
[2024-04-14] MEDS: ALBUT/IPRATROP 3MG/0.5MG NEB 3 ML VIAL NEB SCH (18:17)
[2024-04-14] MEDS: cefTRIAXone SODIUM 2,000 MG/50 ML BAG IV SCH (19:20)
--- NOTE | 2024-04-14 19:45 | Electrocardiogram Report ---
Test Reason : Blood Pressure : */* mmHG Vent. Rate : 61 BPM Atrial Rate : * BPM P-R Int : * ms QRS Dur : 82 ms QT Int : 426 ms P-R-T Axes : * 48 121 degrees QTcB Int : 428 ms Atrial fibrillation Anteroseptal infarct (cited on or before 27-Sep-2021) Abnormal ECG When compared with ECG of 06-Apr-2023 11:07, Nonspecific T wave abnormality, improved in Inferior leads Nonspecific T wave abnormality, improved in Lateral leads Confirmed by Georgette Trujillo (Amadeo) on 04/14/2024 7:44:58 PM Referred By: [facility] Confirmed By: Georgette Trujillo
[2024-04-14] MEDS: ARTIFICIAL TEARS OP SCH (21:44)
[2024-04-14] MEDS: MELATONIN 3 MG TAB PO SCH (21:45)
[2024-04-14] MEDS: METOPROLOL TARTRATE 25 MG TAB PO SCH (21:46)
[2024-04-14] MEDS: HYDROCORTISONE ACETATE 25 MG SUPP PR SCH (21:46)
[2024-04-15] MEDS: LEVOTHYROXINE SODIUM 100 MCG TABLET PO SCH (05:21)
[2024-04-15] MEDS: POLYETHYLENE (MIRALAX) 17 GM PACK PO SCH (08:22)
[2024-04-15] MEDS ORDERED: FERROUS SULFATE 325 MG TAB PO SCH (09:00)
[2024-04-15] MEDS ORDERED: PANTOprazole 40 MG TAB PO SCH (09:00)
[2024-04-15] MEDS ORDERED: OXYBUTYNIN CHLORIDE XL 5 MG TABCR PO SCH (09:00)
[2024-04-15 09:26] LABS: Albumin Level 3.5 gm/dl (3.4-5.0); Bilirubin Direct 0.1 mg/dl (0-0.2); Bilirubin,Total 0.8 mg/dl (0.2-1.0); Calcium 9.5 mg/dl (8.6-10.3); Potassium 4.5 mmol/L (3.5-5.1)
[2024-04-15 09:32] LABS: BUN Creatinine Ratio 30.4 (10-20); Creatinine Clr Calc Pharmacy 58.6 ml/min; Total Protein 5.9 gm/dl (6.0-8.3)
[2024-04-15 10:41] LABS: INR 2.7 (0.9-1.1); Prothrombin Time 26.6 Seconds (9.0-12.0)
[2024-04-15] MEDS ORDERED: ADVANCED PROBIOTIC 625 MG CAPSULE PO SCH (11:00)
[2024-04-15] MEDS: cefTRIAXone SODIUM 2,000 MG/50 ML BAG IV STA (14:16)
--- NOTE | 2024-04-15 14:56 | Discharge Summary ---
Discharge Summary Date of Service April 15, 2024 Principal Dx & Hospital Course #1 = Principal Diagnosis (1) Rhinovirus: Asymptomatic on discharge date 04/15/2024. Patient remains afebrile with no complaints of rhinorrhea or nasal congestion. Observe. (2) UTI (urinary tract infection): Asymptomatic on discharge date 04/15/2024. Patient has no complaints of dysuria, hematuria, frequency, urgency, flank pain, or N/V to suggest acute UTI, on discharge date 04/15/2024. Patient maintained normal WBC throughout hospitalization with WBC 6.56, N56 L27 M11 E4 B1 (04/14/2024, 9:14am). cf., urine culture # 1 (11/15/2018, 8:15am): macrobid-resistant Klebsiella pneumoniae. cf., urine culture # 2 (01/04/2019, 9:30am): ciprofloxa-resistant, bactrim- resistant Proteus mirabilis. cf., urine culture # 3 (06/19/2019, 7:30pm): ruelas-sensitive Klebsiella pneumoniae; ruelas-sensitive E. coli. cf., urine culture # 4 (07/11/2019, 3:00pm): ciprofloxa-resistant, bactrim- resistant Proteus mirabilis. cf., urine culture # 5 (08/01/2019, 12:00pm): > 3 organisms. cf., urine culture # 6 (08/30/2019, 1:20pm): ruelas-sensitive Klebsiella pneumoniae. cf., urine culture # 7 (10/10/2019, 7:12pm): > 3 organisms. cf., urine culture # 8 (10/22/2019, 2:20am): < 1,000 cfu/mL. cf., urine culture # 9 (11/15/2019, 7:30am): ciprofloxa-resistant, tetracycline-resistant, vancomycin-sensitive E. faecalis. cf., urine culture #10 (12/07/2019, 2:05pm): ciprofloxa-resistant, bactrim- resistant, cefazolin-resistant Proteus mirabilis. cf., urine culture #11 (12/17/2019, 3:50am): > 3 organisms. cf., urine culture #12 (11/07/2020, 8:27am): ruelas-sensitive Proteus mirabilis. cf., urine culture #13 (12/10/2020, 5:13pm): ciprofloxa-resistant, tetracycline-intermediate, vancomycin-sensitive E. faecalis. cf., urine culture #14 (08/27/2021, 10:30am): ESBL E. coli. cf., urine culture #15 (09/27/2021, 10:26pm): > 3 organisms. cf., urine culture #16 (10/28/2021, 8:25am): ciprofloxa-resistant, bactrim- resistant Proteus mirabilis; ciprofloxa-resistant, bactrim-resistant, ampicillin-resistant, unasyn-resistant E. coli. cf., urine culture #17 (11/11/2021, 3:00pm): zosyn-resistant, macrobid- resistant, cefazolin-resistant, augmentin-resistant, unasyn-resistant, ciprofloxa-intermediate Klebsiella pneumoniae. cf., urine culture #18 (01/30/2022, 9:34am): ciprofloxa-resistant, bactrim- resistant, ampicillin-resistant, unasyn-resistant E. coli. cf., urine culture #19 (08/30/2022, 2:35pm): macrobid-resistant Klebsiella pneumoniae. cf., urine culture #20 (02/11/2023, 10:00am): ruelas-sensitive Klebsiella pneumoniae. cf., urine culture #21 (03/28/2023, 11:15pm): ruelas-sensitive Citrobacter freundii. cf., urine culture #22 (05/04/2023, 1:45pm): > 3 organisms. cf., urine culture #23 (01/09/2024, 2:00pm): ruelas-sensitive E. coli. cf., urine culture #24 (02/05/2024, 12:50am): > 3 organisms. cf., urine culture #25 (03/17/2024, 1:30pm): ruelas-sensitive Klebsiella pneumoniae. cf., urine culture #26 (04/15/2024, 11:21am): Etiology of PRESUMED recurrent, acute UTI remains unclear, but may be related to patient's past medical history of mixed stress and urge urinary incontinence, for which patient has tried virabegron (Gemtesa) 75mg PO daily in the past and is currently on oxybutynin 5mg PO daily. While either/both medications may help to mitigate patient's mixed stress and urge urinary incontinence, either/both medications also help to promote urinary retention and consequently, recurrent, acute UTI. Hence, I have opted to D/C oxybutynin 5mg PO daily on 04/15/2024 as I surmise that it is far better for this patient to suffer from the inconvenience of wet clothes and/or wet bedsheets from untreated mixed stress and urge urinary incontinence, than to develop severe sepsis and/or septic shock and/or from recurrent, acute UTI. To this end, patient concurs. Moreover, patient reports a past medical history of bladder cysts that were resected in [facility] by a urologist whose name the patient cannot recall; patient subsequently complains that she developed a vesicovaginal fistula, and which has not been repaired to date as patient has been informed that she is a poor candidate for urological surgical correction of her vesicovaginal fistula given her morbid obesity with BMI 49.0 (height 160.0 cm; weight 125.5 kg), bed-bound state @ [facility] ([place]) for the past 2 years, chronic hypoxic respiratory failure due to end-stage COPD on 4 liters/minute O2 via nasal cannula [id number], due to former tobacco abuse, chronic biventricular systolic and diastolic CHF with reduced LV EF 45-50% and grade II LV diastolic dysfunction (as noted on 01/30/2022, 2:44pm TTE, CARDS Dr. Leobardo Johnson) with dry baseline weight of 275 pounds @ [facility] ([place]), and chronic AFIB on metoprolol 25mg PO q12 and warfarin 4mg PO daily. Of note, multiple attempts to obtain a clean catch urine specimen and to straight cath this patient in [facility] Tele bed #283-2 were unsuccessful, and hence, no U/A with microscopy was obtainable during patient's stay at [facility]. Patient subsequently received ceftriaxone 2g IV x 2 doses (04/14/2024, 7:30pm; 04/15/2024, 2:03pm) while in [facility] Tele bed #283-2. Patient was subsequently given an electronic prescription for fosfomycin 3g PO x 1 packet (to be dissolved in 3 ounces of water or juice on 04/16/2024, 9:00am at [facility] ([place] Patient was also advised to follow up with her PCP @ [facility] ([place]) within 3-5 days of hospital discharge in regards to final urine culture #25 (04/15/2024, 11:21am) results. Patient was also advised to follow up with her [facility] Urologist Dr. 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 (3) Seizure-like activity: Patient reports that she has never been diagnosed with seizure disorder in her entire life. Instead, patient was diagnosed with acute rhinovirus infection (04/14/2024, 2:40pm) and PRESUMED, recurrent, acute UTI; either/both of these latter infection(s) could simulate seizure-like activity @ [facility] ([place] In addition, patient takes several medications @ [facility] ([place]) which can affect patient's neurologic status; these home- scheduled medications include: anti-cholinergic oxybutynin 5mg PO daily, anti- GERD pantoprazole 40mg PO daily, anti-RLS ropinirole 0.25mg PO qhs prn RLS, hypnagogic melatonin 5mg PO qhs, and anti-neuropathic gabapentin 100mg PO tid. Hence, patient did not receive these 5 home-scheduled medications while in [facility] bed #283-2, and will not resume these 5 home-scheduled medications on hospital discharge back to [facility] ([place]) on 04/15/2024. While in [facility] bed #283-2, patient displayed no tremors, tics, or myoclonus. Patient also did not receive or require any anti-epileptic medications while in [facility] Tele bed #283-2. Patient subsequently did not receive any written or electronic prescriptions for anti-epileptic medications on hospital discharge back to [facility] ([place] on 04/15/2024. Of final note, patient is bedbound for the past 2 years @ [facility] ([place]), and hence, patient does not drive a motor vehicle. Subsequently, there is no emergency detail driver's license for this patient to surrender to the [facility] [employer]. EKG without ischemic changes, A fib which is chronic for patient. Troponin mildly elevated at 44.7 --> 37.8 likely demand, patient asymptomatic from cardiac standpoint CXR: cardiomegaly w/ interstitial pulmonary edema. Small pleural effusions w/ mild basilar consolidation which may represent atelectasis vs pneumonia. Head CT without acute changes. AM CBC, BMP (4) Afib: Chronic AFIB on home-scheduled metoprolol 25mg PO q12 @ [facility] ([place] Rate-controlled throughout hospitalization with admitting HR 64 bpm (04/14/2024, 8:41am) and discharge HR 71 bpm (04/15/2024, 2:50pm) on metoprolol 25mg PO q12 while in [facility] Tele bed #283-2. Of note, patient has a CHADS2-VASC score = 6 points (e.g., 2 points for age > 74 years, 1 point for female sex, 1 point for chronic biventricular systolic and diastolic CHF, 1 point for CVA, and 1 point for PAD), and hence, patient stands to benefit from continued, long-term, active anticoagulation with her home- scheduled coumadin 4mg PO daily as patient strives to maintain a therapeutic INR range of 2.0 to 3.0, to prophylax against thrombo-embolism in the setting of chronic AFIB. cf., INR 2.5 (04/14/2024, 9:14am). cf., INR 2.7 (04/15/2024, 9:42am). Patient did not receive her home-scheduled coumadin 4mg PO daily, and nonetheless, maintains a therapeutic INR while in [facility] Tele bed #283-2. Hence, patient will resume her home-scheduled coumadin 4mg PO daily on hospital discharge to [facility] ([place] on 04/15/2024 pm. Patient should undergo weekly INR testing with her PCP @ [facility] ([place]), as patient strives to maintain a therapeutic INR range of 2.0 to 3.0, to prophylax against thrombo- embolism in the setting of chronic AFIB. (5) Elevated troponin: cf., troponin #1 44.7 pg/mL (04/14/2024, 9:14am). cf., troponin #2 37.8 pg/mL (04/14/2024, 10:54am). cf., EKG #1 (04/14/2024, 9:01am): AFIB @ 62, QTC 428, no acute ST elevations/depressions; no TWI (by my review). cf., EKG #2 (04/14/2024, 10:13am): JXNL @ 79, QTC 463, no acute ST elevations/depressions; TWI in III, aVF (by my review). cf., EKG #3 (04/15/2024, 3:59pm): AFIB @ 80, QTC 447, no acute ST elevations/depressions; no TWI (by my review). cf., EKG old (04/06/2023, 11:07am): AFIB @ 73, QTC 462, no acute ST elevations/depressions; no TWI (by my review). cf., TTE (01/31/2022, 2:44pm): 1. LV EF 45-50%. Mild global hypokinesis. Mild concentric LVH. Type 2 LV diastolic dysfunction. 2. Mildly dilated RV with mildly reduced RV systolic function. 3. Moderate biatrial dilation. 4. Mild MR. 5. Mild-moderate TR. 6. Severe pulmonary HTN. 7. Compared to 09/28/2021, 6:42am TTE, RV now appears mildly dilated. (as per CARDS Dr. Leobardo Johnson). Etiology of nominal elevations in troponin levels remains unclear, but is most probably due to demand ischemia, which in turn, is due to patient's chronic AFIB, rate-controlled throughout hospitalization with admitting HR 64 bpm (04/14/2024, 8:41am) and discharge HR 71 bpm (04/15/2024, 2:50pm) on metoprolol 25mg PO q12 while in [facility] bed #283-2. Moreover, my clinical index of suspicion for acute NSTEMI remains low in the setting of acute rhinovirus infection and/or PRESUMED recurrent, acute UTI. Hence, patient did not undergo TTE during this current hospitalization to evaluate for any new LV wall motion abnormalities that might suggest acute myocardial ischemia, especially as patient had no complaints of SOB/LICEA, chest tightness, chest heaviness, chest pressure, chest pain, palpitations, pleurisy, N/V, jaw pain, neck pain, arm pain/numbness, etc., to suggest acute NSTEMI. Of final note, the recording of a junctional rhythm (04/14/2024, 10:13am EKG #2) with TWI in III, aVF should be followed up with her PCP @ [facility] ([place] within 3-5 days of hospital discharge for solicitation of outpatient EPS evaluation for possible pacemaker insertion. (6) Chronic combined systolic and diastolic CHF (congestive heart failure): Chronic biventricular systolic and diastolic CHF with reduced LV EF 45-50% and grade II LV diastolic dysfunction (as noted on 01/30/2022, 2:44pm TTE, CARDS Dr. Leobardo Johnson) with dry baseline weight of 275 pounds @ [facility] ([place] NOT acute exacerbation while in [facility] bed #283-2 as patient has no complaints of paroxysmal nocturnal dyspnea, orthopnea, platypnea, or weight gain while in [facility] bed #2832. Patient had a recorded admission weight of 136 kg = 299.2 pounds (on admission date/time, 04/14/2024, 8:41am). Patient has a discharge weight of 125.5 kg = 276.1 pounds (on discharge date/time, 04/15/2024, 6:04am) without administration of any diuretics while in [facility] bed #283-2. Instead, patient was maintained on a 2 gram Na diet, daily weights, strict I/O, and her home- scheduled metoprolol 25mg PO q12 while in [facility] Tele bed #283-2. Patient will continue this same regimen on hospital discharge back to [facility] [place] on 04/15/2024. Of note, no fluid restriction was warranted while patient remained in [facility] Tele bed #283-2. cf., TTE (01/31/2022, 2:44pm): 1. LV EF 45-50%. Mild global hypokinesis. Mild concentric LVH. Type 2 LV diastolic dysfunction. 2. Mildly dilated RV with mildly reduced RV systolic function. 3. Moderate biatrial dilation. 4. Mild MR. 5. Mild-moderate TR. 6. Severe pulmonary HTN. 7. Compared to 09/28/2021, 6:42am TTE, RV now appears mildly dilated. (as per CARDS Dr. Leobardo Johnson). (7) Chronic hypoxic respiratory failure: Chronic hypoxic respiratory failure due to end-stage COPD on 4 liters/minute O2 via nasal cannula [id number], due to former tobacco abuse. NOT acute exacerbation as patient had/has no complaints of cough, wheeze, SOB/LICEA while in [facility] Tele bed #283-2. Hence, patient received her home- scheduled duonebs (albuterol 2.5mg / ipratropium 0.5mg in 3mL NS neb) qid while in [facility] Tele bed #283-2. Patient will continue this home-scheduled medication on hospital discharge back to [facility] [place] on 04/15/2024. (8) Hypothyroidism: Patient has no goiter, lid lag, or proptosis on exam. Patient appears to be euthyroid on synthroid 100ug PO daily with last recorded screening TSH 2.265 uIU/mL (03/08/2024, 5:15am). Hence, patient will continue this home-scheduled medication on hospital discharge back to [facility] [place] on 04/15/2024. (9) Pain management: Patient reports 0/10 pain anywhere in/on the body on hospital discharge date 04/15/2024. Patient received her home-scheduled tylenol 650mg PO q6 prn pain, headache, temp > 100.4 degrees Fahrenheit on 04/14/2024, 3:53pm while in [facility] Tele bed #283-2. Hence, patient will continue this home-scheduled medication on hospital discharge back to [facility] [place] on 04/15/2024. (10) DVT prophylaxis: Patient did not receive pharmacologic DVT prophylaxis with heparin or lovenox given long-term active anticoagulation with her home-scheduled coumadin 4mg PO daily as patient strives to maintain a therapeutic INR range of 2.0 to 3.0, to prophylax against thrombo-embolism in the setting of chronic AFIB. cf., INR 2.5 (04/14/2024, 9:14am). cf., INR 2.7 (04/15/2024, 9:42am). Patient did not receive her home-scheduled coumadin 4mg PO daily, and nonetheless, maintains a therapeutic INR while in [facility] Tele bed #283-2. Hence, patient will resume her home-scheduled coumadin 4mg PO daily on hospital discharge to [facility] ([place] on 04/15/2024 pm. Patient should undergo weekly INR testing with her PCP @ [facility] ([place]), as patient strives to maintain a therapeutic INR range of 2.0 to 3.0, to prophylax against thrombo- embolism in the setting of chronic AFIB. cf., patient has a past medical history of acute non-occlusive DVT within the right common femoral vein (as noted on 08/21/2020, 3:14am RLE venous doppler). Of final note, patient had no complaints of calf pain, leg swelling, or pleurisy to suggest either DVT or PE while in [facility] Tele bed #283-2. (11) Morbid obesity: Patient stands 160.0 cm tall and weights 125.5 kg (04/15/2024, 6:04am) for a BMI 49.0. Patient needs to lose at least 61.8 kg in order to attain a BMI 24.9, at which level, patient would no longer be deemed morbidly obese, obese, or overweight. Patient reports that she is too old at 79 years of age and bedbound for the past 2 years @ [facility] ([place]) to modify her diet, exercise, and/or lifestyle in order to lose any weight over any time period. I concur. 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 s/p left lumpectomy (02/23/2018). s/p XRT (05/12/2018). In clinical remission with no recurrence to date. Observe. (13) DNR (do not resuscitate): Disposition. Code status, DNR/DNI @ [facility] ([place]). Condition of patient remains fair. There were no adverse events noted with this hospitalization. Patient feels well and wants to go back to [facility] ([place]). Patient has no complaints at all on 04/15/2024. Hence, patient demonstrated unexpectedly rapid improvement in her admitting complaints of "voices at [facility] started to sound muffled and I don't know why." Consequently, patient was discharged back to [facility] ([place]) on 04/15/2024, and will follow up with her PCP @ [facility] ([place]), who will follow up: A. Urine culture (04/15/2024, 11:21am) final results. B. Further evaluation of recording of a junctional rhythm (04/14/2024, 10:13am EKG #2) with TWI in III, aVF, within 3-5 days of hospital discharge with outpatient EPS evaluation for possible pacemaker insertion. Discharge time, 35 minutes. Of this time period, 17 minutes were spent in coordinating patient's discharge. 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, grade 3, ER-, [place]- (as noted on 12/07/2017 core needle biopsy), s/p left lumpectomy (02/23/2018), s/p XRT (05/12/2018), in clinical remission with no recurrence to date, former tobacco abuse with subsequent development of chronic hypoxic respiratory failure due to end-stage COPD on 4 liters/minute O2 via nasal cannula [id number], hypothyroidism, hypothyroidism on synthroid 100ug PO daily, RLS on ropinirole 0.25mg PO qhs prn RLS, GERD on protonix 40mg PO daily, chronic AFIB on metoprolol 25mg PO q12 and coumadin 4mg PO daily, and chronic biventricular systolic and diastolic CHF with reduced LV EF 45-50% and grade II LV diastolic dysfunction (as noted on 01/30/2022, 2:44pm TTE, CARDS Dr. Leobardo Johnson) with dry baseline weight of 275 pounds @ [facility] ([place]), and recurrent/acute UTIs: cf., urine culture # 1 (11/15/2018, 8:15am): macrobid-resistant Klebsiella pneumoniae. cf., urine culture # 2 (01/04/2019, 9:30am): ciprofloxa-resistant, bactrim- resistant Proteus mirabilis. cf., urine culture # 3 (06/19/2019, 7:30pm): ruelas-sensitive Klebsiella pneumoniae; ruelas-sensitive E. coli. cf., urine culture # 4 (07/11/2019, 3:00pm): ciprofloxa-resistant, bactrim- resistant Proteus mirabilis. cf., urine culture # 5 (08/01/2019, 12:00pm): > 3 organisms. cf., urine culture # 6 (08/30/2019, 1:20pm): ruelas-sensitive Klebsiella pneumoniae. cf., urine culture # 7 (10/10/2019, 7:12pm): > 3 organisms. cf., urine culture # 8 (10/22/2019, 2:20am): < 1,000 cfu/mL. cf., urine culture # 9 (11/15/2019, 7:30am): ciprofloxa-resistant, tetracycline-resistant, vancomycin-sensitive E. faecalis. cf., urine culture #10 (12/07/2019, 2:05pm): ciprofloxa-resistant, bactrim- resistant, cefazolin-resistant Proteus mirabilis. cf., urine culture #11 (12/17/2019, 3:50am): > 3 organisms. cf., urine culture #12 (11/07/2020, 8:27am): ruelas-sensitive Proteus mirabilis. cf., urine culture #13 (12/10/2020, 5:13pm): ciprofloxa-resistant, tetracycline-intermediate, vancomycin-sensitive E. faecalis. cf., urine culture #14 (08/27/2021, 10:30am): ESBL E. coli. cf., urine culture #15 (09/27/2021, 10:26pm): > 3 organisms. cf., urine culture #16 (10/28/2021, 8:25am): ciprofloxa-resistant, bactrim- resistant Proteus mirabilis; ciprofloxa-resistant, bactrim-resistant, ampicillin-resistant, unasyn-resistant E. coli. cf., urine culture #17 (11/11/2021, 3:00pm): zosyn-resistant, macrobid- resistant, cefazolin-resistant, augmentin-resistant, unasyn-resistant, ciprofloxa-intermediate Klebsiella pneumoniae. cf., urine culture #18 (01/30/2022, 9:34am): ciprofloxa-resistant, bactrim- resistant, ampicillin-resistant, unasyn-resistant E. coli. cf., urine culture #19 (08/30/2022, 2:35pm): macrobid-resistant Klebsiella pneumoniae. cf., urine culture #20 (02/11/2023, 10:00am): ruelas-sensitive Klebsiella pneumoniae. cf., urine culture #21 (03/28/2023, 11:15pm): ruelas-sensitive Citrobacter freundii. cf., urine culture #22 (05/04/2023, 1:45pm): > 3 organisms. cf., urine culture #23 (01/09/2024, 2:00pm): ruelas-sensitive E. coli. cf., urine culture #24 (02/05/2024, 12:50am): > 3 organisms. cf., urine culture #25 (03/17/2024, 1:30pm): ruelas-sensitive Klebsiella pneumoniae. cf., urine culture #26 (04/15/2024, 11:21am): who presented to [facility] ER on 04/14/2024 after experiencing [facility]-like activity at [facility] [place] on 04/14/2024 am. The patient was seen and examined at bedside. Patient reports that she took her a.m. medications and felt fine. She then states that voices started to sound muffled and then she is not sure what happened. Patient states that since coming to the hospital she feels that she has returned back to her baseline. She is alert and oriented x 3. She denies fevers, chills, chest pain, shortness of breath. She has been having urinary issues and has been following with urology for this. 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 She states that she will have lower abdominal pain when "cyst burst in her bladder". States that this happens often. She is on 2 L of oxygen at baseline. She did still have a headache at time of my encounter. Spoke w/ staff at center care. Staff reports that this morning patient started to have upper body tremors and prolonged staring. she was not able to respond to staff during this time period. Afterwards staff reports she had a headache and demonstrated postictal behaviors. Discharge Exam General: comfortable, coherent, cooperative. Wide awake and alert. Not confused, lethargic, or obtunded. Patient speaks in complete, fluent, and articulate sentences without pause, interruption, cough, or wheeze. HEENT: NC/AT. EOMI. PERRL. No nystagmus, gaze paresis, anisocoria, miosis, chemosis, mydriasis, hyphema, scleral injection, conjunctivitis, or pterygium. No otorrhea or rhinorrhea. No pharyngeal discharge or erythema. Neck: Supple, no stridor, bruit, goiter, JVD, or HJR. Chest: Symmetric rise and fall with respirations. Lungs: CTA/P. No audible expiratory wheeze, egophony, pectoriloquy, increase in tactile fremitus, or flatness/dullness to percussion at the bases. Heart: Irregularly irregular rhythm, normal rate, S1 and S2 noted. No S3 or S4 summation gallop. Grade II/ early systolic murmur @ LLSB, without radiation to the carotids, axilla, or back, and which remains invariant in regards to the respiratory cycle. Abdomen: Soft, NT, ND, no organomegaly. Bowel sounds auscultated in all 4 quadrants. Extremities: No clubbing, cyanosis, or edema. 2+ pedal pulses bilaterally. Skin: No decubitus ulcer, exanthem, or enanthem. Neurology: Alert and oriented in regards to person, place, time, or situation. 5/5 motor strength in all 4 extremities, both proximally and distally. No tremors, tics, or myoclonus. No tongue laceration. Urology: No clark catheter. Purewick with 100cc of clear urine. No urethral discharge. Discharge Plan Discharge Items Patient Disposition: Transfer Intermediate Fac Reason For Visit: SEIZURE LIKE ACTIVITY Discharge Diagnosis: Acute rhinovirus infection and/or recurrent, acute UTI Condition on Discharge: Fair Activity: Resume your previous activity Non-emergency contact: Primary Care Provider Call non-emergency contact if: you have any medication questions Follow-up/Referrals: [facility] [Primary Care Provider] - Diet: Heart Healthy Addtl Attending Provider Instructions: Follow up urine culture (04/15/2024, 11:21am) results to completion. Pending Studies at Discharge: Yes Studies:: Follow up urine culture (04/15/2024, 11:21am) results to completion. Stand-Alone Forms: [facility] Skilled Items Patient informed of condition?: Yes DNR: Yes Discharge Level of Care: Skilled Communicable Disease: No Discharge Prognosis: Stable Lines: None Urinary Catheter: No Medications and DC Order Prescriptions: New fosfomycin tromethamine 3 gram packet 3 g PO ONCE Qty: 1 0RF Rx Instructions: Dissolve 1 packet in 3 ounces of water or juice and drink on 04/16/2024, 9:00am, then stop. Continued Lactobacillus acidophilus Capsule 1 cap PO DAILY Rx Instructions: give at lunch sennosides [senna] 8.6 mg Tablet 8.6 mg PO DAILY PRN (Reason: Constipation) magnesium hydroxide [Milk of Magnesia] 400 mg/5 mL Suspension 30 ml PO DIRECTED PRN (Reason: Constipation) Rx Instructions: NO BM FOR 3 DAYS, administer on 7-3 shift ferrous sulfate 325 mg (65 mg iron) Tablet,Delayed Release (Dr/Ec) 325 mg PO QAM acetaminophen [Tylenol] 325 mg Tablet 650 mg PO Q6 MDD 3g/24hr PRN (Reason: Pain/fever) calcium carbonate-vitamin D3 [Calcium 500 + D] 500 mg(1,250mg) -200 unit Tablet 1 tab PO BID polyethylene glycol 3350 [Miralax] 17 gram Powder In Packet 17 g PO DAILY sennosides-docusate sodium [Senna-S] 8.6-50 mg Tablet 1 tab-cap PO BID cyanocobalamin (vitamin B-12) [Vitamin B-12] 1,000 mcg Tablet 1,000 mcg PO DAILY pantoprazole 40 mg tablet,delayed release (DR/EC) 40 mg PO DAILY Rx Instructions: Start 09/25/21 for 2 weeks & then reduce to dailyy folic acid 1 mg Tablet 1 mg PO DAILY diclofenac sodium 1 % gel 2 g TOPICAL QID Rx Instructions: FOR SHOULDER/WRIST PAIN melatonin 5 mg Tablet 5 mg PO HS metoprolol tartrate 25 mg Tablet 25 mg PO Q12 Qty: 30 0RF gabapentin 100 mg capsule 100 mg PO TID Qty: 90 0RF ropinirole 0.25 mg tablet 0.25 mg PO HS PRN (Reason: restless leg(s)) Qty: 30 0RF alum-mag hydroxide-simeth 400-400-40 mg/5 mL Suspension 30 ml PO QID PRN (Reason: Heartburn/Gas/Nausea) warfarin 4 mg tablet 4 mg PO HS hydrocortisone acetate 25 mg Suppository 25 mg AZ BID levothyroxine 100 mcg tablet 100 mcg PO DAILY bisacodyl [Dulcolax (bisacodyl)] 10 mg Suppository 10 mg AZ DAILY PRN (Reason: Constipation) Rx Instructions: Give on day 3 on 3-11 shift if no BM after MOM artificial tears(hypromellose) 0.4 % Drops 1 drp OPHTHALMIC (EYE) BID Debrox 6.5 % Drops 2 drp otic (ear) QID Rx Instructions: Start Date 04/11/24 x5 day supply multivitamin with minerals Tablet 1 tab PO DAILY eucalyptus-menthol Lozenge 1 portillo MUCOUS MEMBRANE Q2H PRN (Reason: Cough) mineral oil-isopropyl myristat Lotion 1 applic TOPICAL DAILY Rx Instructions: Apply to BLE topically BID for wound care witch santa 20 % Pads, Medicated 1 pad TOPICAL DAILY PRN (Reason: Hemorrhoids) ipratropium-albuterol 0.5 mg-3 mg(2.5 mg base)/3 mL solution for nebulization 3 ml NEB QID Rx Instructions: May also administer every 2 hours if needed Discontinued oxybutynin chloride 5 mg tablet extended release 24hr 5 mg PO DAILY Qty: 30 2RF Fleet Enema 19-7 gram/118 mL Enema 118 ml AZ DAILY PRN (Reason: Constipation) Rx Instructions: Administer on day 4 of no BM on 7-3 shift if no BM after Dulcolax Discharge Orders: Discharge Order (Routine); Ordered 04/15/24 Ordered By: Ulises Cueto Admission Data Admit Date/Time: 04/14/24 13:12 Attending Provider: Ulises Cueto Admit Provider: Tucker Roper Primary Care Provider: [facility] Other Providers: Tucker Roper Hospital Stay Data Consultations 04/14/24 12:55 ED Decision to Admit Stat Diagnostic Imagining Performed 04/14/24 08:48 CT head/brain wo con Stat Pending Results Patient Have Any Pending Studies at Discharge: Yes Discharge Instructions Given to Patient (Per Discharging Provider) Follow up urine culture (04/15/2024, 11:21am) results to completion. Total Time Total Time Spent Total Time Spent (In Minutes): 35 minutes Coding Level of Care Code 02599 INP/OBS DISCH >30 MIN Diagnoses Rhinovirus B34.8 UTI (urinary tract infection) N39.0 Hematuria presence: without hematuria Urinary tract infection type: site unspecified Seizure-like activity R56.9 Afib I48.91 Elevated troponin R77.8 Chronic combined systolic and diastolic CHF (congestive heart failure) I50.42 Chronic hypoxic respiratory failure J96.11 Hypothyroidism E03.9 Pain management R52 DVT prophylaxis Z29.9 Morbid obesity E66.01 Breast cancer in situ D05.90 DNR (do not resuscitate) Z66
[2024-04-15] MEDS: WARFARIN SOD 4 MG TAB PO SCH (16:06)
--- NOTE | 2024-04-15 17:24 | Electrocardiogram Report ---
Test Reason : Blood Pressure : */* mmHG Vent. Rate : 79 BPM Atrial Rate : * BPM P-R Int : * ms QRS Dur : 116 ms QT Int : 404 ms P-R-T Axes : * 16 5 degrees QTcB Int : 463 ms Accelerated Junctional rhythm Low voltage QRS Incomplete right bundle branch block Septal infarct (cited on or before 27-Sep-2021) Abnormal ECG When compared with ECG of 14-Apr-2024 09:01, Junctional rhythm has replaced Atrial fibrillation Incomplete right bundle branch block is now Present Questionable change in initial forces of Anterior leads Confirmed by Georgette Trujillo (Amadeo) on 04/15/2024 5:24:22 PM Referred By: [facility] Confirmed By: Georgette Trujillo
[2024-04-15] MEDS: ACETAMINOPHEN 325 MG TAB PO PRN (22:44)
[2024-04-16 06:53] LABS: Prothrombin Time 20.7 Seconds (9.0-12.0)
[2024-04-16 07:08] LABS: Albumin Globulin Ratio 1.6 (0.9-2); Albumin Level 3.3 gm/dl (3.4-5.0); BUN Creatinine Ratio 26.8 (10-20); Bilirubin,Total 0.8 mg/dl (0.2-1.0); Calcium 9.2 mg/dl (8.6-10.3); Creatinine Clr Calc Pharmacy 48.6 ml/min; Globulin 2.1 gm/dl (2.5-4.0); Potassium 4.2 mmol/L (3.5-5.1); Total Protein 5.4 gm/dl (6.0-8.3)
[2024-04-16 07:26] LABS: Basophils # (auto) 0.05 K/uL (0.00-0.20); Basophils % (auto) 0.8 %; Eosinophils # (auto) 0.15 K/uL (0.00-0.50); Eosinophils % (auto) 2.3 %; Hematocrit (blood only) 38.7 % (37.0-47.0); Hemoglobin 12.4 g/dl (12.0-16.0); Immature Granulocytes # (auto) 0.02 K/uL (0.01-0.20); Immature Granulocytes % (auto) 0.3 %; Lymphocytes % (auto) 34.4 %; Mean Corpuscular Hemoglobin 32.2 pg (25.0-34.0); Mean Corpuscular Volume 100.5 fL (80.0-100.0); Mean Platelet Volume 10.5 fL (9.4-12.4); Monocytes # (auto) 0.82 K/uL (0.11-0.59); Monocytes % (auto) 12.8 %; Neutrophils # (auto) 3.16 K/uL (1.40-6.50); Neutrophils % (auto) 49.4 %; Platelet Count 113 K/uL (130-400); RDW Coefficient of Variation 16.2 % (11.5-14.5); RDW Standard Deviation 59.3 fL (36.4-46.3); Red Blood Count 3.85 M/uL (4.20-5.40)
[2024-04-16 07:57] VITALS: BP 117/78; TEMP 97.5; O2SAT 95
--- NOTE | 2024-04-16 09:08 | Electrocardiogram Report ---
Test Reason : Blood Pressure : */* mmHG Vent. Rate : 80 BPM Atrial Rate : 110 BPM P-R Int : * ms QRS Dur : 88 ms QT Int : 388 ms P-R-T Axes : * 39 172 degrees QTcB Int : 447 ms Atrial fibrillation Anterior infarct (cited on or before 27-Sep-2021) Abnormal ECG When compared with ECG of 14-Apr-2024 10:13, Atrial fibrillation has replaced Junctional rhythm Incomplete right bundle branch block is no longer Present Questionable change in initial forces of Anteroseptal leads Confirmed by Georgette Trujillo (Amadeo) on 04/16/2024 9:08:37 AM Referred By: [facility] Confirmed By: Georgette Trujillo
[2024-04-16 10:37] VITALS: PULSE 70; RESP 18
== END 2024-04-16 15:00 | DRG 689 ==
LOC: ED 08:44 → SUATTDRO 13:12 → 2N 13:12

== ENCOUNTER 2024-10-03 10:49 | Inpatient (IN) ==
--- NOTE | 2024-10-03 11:06 | Emergency Department Note ---
Impression & Plan Pneumonia, Afib, Supratherapeutic INR, Chronic hypoxic respiratory failure ED Provider Note NAME: TARAN FREEMAN AGE: 79 SEX: F : 1945 ARRIVES VIA: Ambulance INFORMANT: [Patient][, ] ED PROVIDER(S): [Aneudy Barros MD] CHIEF COMPLAINT: Weakness, change in mentation, decrease in vision MEDICAL DECISION MAKING: Patient presents with the above. The patient reports that she feels cold all the time and is having a change in her vision where she cannot see as well. The patient is coming from [facility]. IV was established and blood work was obtained along with an INR as the reports that the patient's INR was elevated greater than 5. Patient is DNR. Patient reportedly had some GLORIA her Bumex was DC'd patient's loss 60 pounds over the last 4 months. No reported falls or trauma. Patient denies any chest pains. Patient has had reported cough. She does feel as though her legs have gotten more swollen. Patient's blood work shows a normal white count hemoglobin and platelet count kidney function with slightly worsening creat. Troponin is elevated at 119. BioFire negative. CT head negative. Chest x-ray with CHF. The patient was ordered IV Lasix. Patient is tolerating 2 L nasal cannula without issue. Patient was also ordered azithromycin initially due to the patient's Keflex allergy will defer any additional antibiotic treatment in light of the patient's chest x-ray which likely shows volume overload in addition to possible left lower lobe pneumonia. INR noted to be 7. I did speak with the on-call hospital service Dr. Valiente and the patient was admitted to the medicine service. Discussion w/ other healthcare providers: Dr. Valiente inpatient medicine service Prior /Outside records reviewed: I reviewed part of a discharge summary from [facility] from April 15, 2024. Patient with a history of heart failure and severe pulmonary hypertension with MR and TR. Patient also with a history of A-fib on metoprolol and Coumadin patient also with rhinovirus and UTI at the time of admission with reported seizure-like activity. Patient reportedly has been bedbound for the last 2 years prior to this.. Differential diagnosis: Infection, dehydration, metabolic abnormality, hypo/hyperglycemia, electrolyte imbalance, anemia, UTI, pneumonia, thyroid dysfunction among others were considered. Diagnostics, as interpreted by me: ECG: A-fib, rate of 73, normal QRS duration, normal axis no ST elevations. Cardiac monitoring: An order was placed for continuous cardiac monitoring. The monitor shows a rate of 72 with irregular irregular rhythm. [Patient was placed on pulse oximetry] Medical decision rules: [none] Imaging studies: [I informally interpreted the patient's chest x-ray with possible volume overload and possible left lower lobe pneumonia with formal report to follow.] [] HPI: Patient presents due to concern for worsening confusion. The patient also complains of decreased ability to see him complains of blurry vision. The patient does believe that her legs are more swollen. Patient also with some associated cough. Patient also with reported kidney dysfunction and elevated INR. Patient does have a known history of COPD. PAST MEDICAL HISTORY: [See Below] PAST SURGICAL HISTORY: [See Below] SOCIAL HISTORY: [See Below] HOME MEDICATIONS: [See Below] ALLERGIES: [See Below] VITALS: [See Below] PHYSICAL EXAMINATION: GENERAL: Chronically ill in appearance, wearing glasses EYE EXAM: Normal conjunctiva. PERRL, no anisocoria and EOM's grossly intact w/o pain. Able to finger count. OROPHARYNX: Moist mucus membranes, poor dentition. NECK: Trachea midline, no stridor. [Supple, no nuchal rigidity, no adenopathy, non-tender. No signs of meningismus. FROM of the neck with good chin to chest and neck extension.] LUNGS: Crackles throughout. Normal chest wall mechanics. HEART: Irregular irregular, no MRG. ABDOMEN: Abdomen soft, non-tender, no masses, no rebound or guarding. BACK: No CVA TTP. SKIN: No rashes and no bruising. UPPER EXTREMITIES: Upper extremities are grossly normal. LOWER EXTREMITIES: Left greater than right lower extremity swelling. NEURO EXAM: A&O x3, cranial nerves II-XII grossly intact, normal speech, moves upper extremities weakly does not move right lower extremity wiggles toes and left lower extremity. Past Med/Surg History Problem List Supratherapeutic INR (Acute) Pneumonia (Acute) Palliative care by specialist Discussion about advance care planning held with family member Weakness generalized Dyspnea and respiratory abnormalities Chronic atrial fibrillation COPD (chronic obstructive pulmonary disease) Chronic respiratory failure Coumadin toxicity Metabolic encephalopathy Pneumonia AMS (altered mental status) (Acute) Observed seizure-like activity (Acute) Breast cancer in situ Morbid obesity DVT prophylaxis DNR (do not resuscitate) Pain management Hypothyroidism Chronic hypoxic respiratory failure (Acute) Chronic combined systolic and diastolic CHF (congestive heart failure) Chronic systolic (congestive) heart failure Afib (Acute) Vesicovaginal fistula Nephrolithiasis (Chronic) Lumbar spinal stenosis Ductal carcinoma in situ (DCIS) of left breast Abnormal left breast mammogram Status post core needle biopsy December 07, 2017 Intraductal carcinoma, grade 3 Estrogen receptor negative and progesterone receptor negative Status post lumpectomy 02/23/2018 Stage pTis pNX Status post completion of radiation therapy May 12, 2018. She received 5130 cGy. Degenerative joint disease (DJD) of hip Neuropathy Pressure ulcer of coccygeal region, stage 2 Hematuria DVT (deep venous thrombosis) Hyperkalemia Elevated alkaline phosphatase level Edema GLORIA (acute kidney injury) Lesion of bladder Gross hematuria Anemia Eosinophilic cystitis (Chronic) Incontinence (Chronic) Urinary frequency Chronic prescription opiate use Morbid obesity with BMI of 45.0-49.9, adult Hematoma Respiratory failure with hypercapnia (Acute) Volume overload Ptosis Rotator cuff syndrome of right shoulder Anxiety Left renal mass Bilateral hydronephrosis Hypothyroidism Pulmonary hypertension severe Cor pulmonale Acute and chronic respiratory failure, unspecified whether with hypoxia or hypercapnia Meningioma s/p resection per remote [place] records Lymphedema upper and lower extremities, stable per pt Anosmia 2/2 resection of benign brain tumor Peripheral neuropathy Atrial fibrillation dx few years ago - PCP monitors - on ASA, BB. Not on additional anticoagulation due to fall risk and prior meningioma. Hyperlipidemia Hypertension controlled, stable per pt Seizure sz first episode 2014, discovered brain tumor; additional sz S/P BRAIN TUMOR REMOVAL IN 2016; last seizure 2017. No longer on seizure medications. Stress incontinence in female History of craniotomy HX OF BENIGN TUMOR REMOVAL IN 2017-TEMPORAL MENINGIOMA Osteoarthritis History of laminectomy LUMBAR History of total knee replacement BILATERAL History of total shoulder replacement RIGHT History of ankle fusion RIGHT History of DVT (deep vein thrombosis) 20+ years ago/after ankle fx GERD (gastroesophageal reflux disease) controlled, stable per pt Spinal stenosis with neuropathy History of benign brain tumor s/p removal 2017 Raynauds disease COPD (chronic obstructive pulmonary disease) controlled, stable per pt; last albuterol treatment last evening-pt states that is routine TID History of lumpectomy of left breast Left breast lumpectomy with needle localization (02/22/18): LMA#4 at [facility] -- LUE LIMB RESTRICTION Medical History Rhinovirus Cor pulmonale, chronic Sleep apnea BiPAP, 2L supplemental oxygen Obesity hypoventilation syndrome Limb alert care status left arm (Pt states [facility] often cannot draw from right arm so when needed draws labs from left arm) [facility] home O[facility] Mixed incontinence Hx of pneumonia due to Klebsiella pneumoniae [place] (hard of hearing) Bilateral Hearing Aids Chronic constipation History of cellulitis RLE Cognitive communication deficit History of COVID-19 02/26/23 Immobility CASEY LIFT, Severe LE pain and weakness; possibly 2/2 spinal stenosis or hip pain Hearing deficit B/L ROBERT History of breast cancer s/p left breast lumpectomy + radiation-left arm restriction Dizziness intermittent; h/o recent falls; has been WC bound since March 2019, now resides in [facility] due to immobility. Pt denies dizziness recently. Heart valve regurgitation Mild to moderate MR/TR per echo 03/2019 [place] Surgical History History of bladder surgery TURBT (11/26/19): LMA#4, atraumatic at [facility] History of mastectomy PARTIAL /XRT FINISHED 04/2018 S/P IVC filter DUE TO LEFT LOWER EXTREMITY DVT'S WITHOUT CLEAR ETIOLOGY 10/12/2019-OFF ANTICOAGULANTS CURRENTLY H/O hernia repair H/O Spinal surgery S/P PICC central line placement 04/2019 for cellulitis of R hip History of ovarian cystectomy History of repair of hiatal hernia History of breast biopsy Family History Mother , Passed age 62 of CA Diabetes Coronary heart disease Hypertension Stroke Father , Passed age 68 of accident (fell down steps) No problems noted. Brother Family history of diabetes mellitus Diabetes Brother No problems noted. Sister Slow to wake up after anesthesia twin sister Breast cancer Twin - Left Breast - Lumpectomy/Chemo/RXT Sister No problems noted. Sister No problems noted. Sister No problems noted. Sister No problems noted. Son Sarcoidosis Son No problems noted. Daughter No problems noted. Grandmother (Paternal) Family history of diabetes mellitus Grandmother (Maternal) Family history of diabetes mellitus Mother Family history of diabetes mellitus Social History Smoking Status: Unknown if ever smoked Tobacco Type: Cigarettes Cigarettes Per Day: HX OF SOCIAL CIGARETTE, QUIT 25 YEARS AGO.; Second Hand Exposure: No (unknown); Do You Dip or Chew Tobacco: No; Hx Alcohol Use: No (unknown) Hx Substance Use: No (unknown) Preferred Language: Greenlandic Communication Ability: Impaired Communication Ability Comment: per records Visual Impairment: No Limitations Hearing Ability: Use of Hearing Aid Safety And Health Manager Required: No Beliefs That Will Affect Care: None marital status: Current Living Situation: [facility] Current Living Situation Comment: [facility] 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 How many Children do You have: 3 Feels Safe at Home: Yes caffeine: No Assistive Devices: Wheelchair Allergies Allergies Allergy/AdvReac Type Severity Reaction Status Date / Time cephalexin Allergy Severe HIVES Verified 04/14/24 13:07 strawberry Allergy Severe hives Verified 04/14/24 11:39 soap Allergy Intermediate Rash Verified 10/04/24 16:49 sulfamethoxazole Allergy Mild Rash Verified 12/23/23 10:22 [From Bactrim] trimethoprim [From Bactrim] Allergy Mild Rash Verified 12/23/23 10:22 amoxicillin [From Augmentin] AdvReac Mild Diarrhea, Verified 04/14/24 11:39 nausea clavulanic acid AdvReac Mild Diarrhea, Verified 04/14/24 11:39 [From Augmentin] nausea Home Meds Home Medications Medication Instructions Recorded Confirmed magnesium hydroxide 400 mg/5 mL 30 ml PO DIRECTED PRN 06/12/19 10/03/24 oral suspension (Milk of Magnesia) Constipation acetaminophen 325 mg tablet 650 mg PO Q6 PRN Pain/fever 12/07/19 10/03/24 (Tylenol) diclofenac sodium 1 % topical gel 2 g topical QID 09/28/21 10/03/24 pantoprazole 40 mg tablet,delayed 40 mg PO DAILY 09/28/21 10/03/24 release polyethylene glycol 3350 17 gram 17 g PO DAILY 09/28/21 10/03/24 oral powder packet (Miralax) sennosides 8.6 mg-docusate sodium 1 tab-cap PO DAILY 09/28/21 10/03/24 50 mg tablet (Senna-S) aluminum-mag hydroxide-simethicone 30 ml PO QID PRN 04/04/23 10/03/24 400 mg-400 mg-40 mg/5 mL oral susp Heartburn/Gas/Nausea artificial tears(hypromellose) 0.4 1 drp ophthalmic (eye) BID 04/14/24 10/03/24 % eye drops bisacodyl 10 mg rectal suppository 10 mg TN DAILY PRN Constipation 04/14/24 10/03/24 (Dulcolax (bisacodyl)) carbamide peroxide 6.5 % ear drops 2 drp otic (ear) QID 04/14/24 10/03/24 (Debrox) hydrocortisone acetate 25 mg 25 mg TN BID 04/14/24 10/03/24 rectal suppository ipratropium 0.5 mg-albuterol 3 mg 3 ml NEB QID COPD 04/14/24 10/03/24 (2.5 mg base)/3 mL nebulization soln levothyroxine 100 mcg tablet 100 mcg PO DAILY 04/14/24 10/03/24 mineral oil-isopropyl myristat 1 applic topical BID 04/14/24 10/03/24 lotion warfarin 4 mg tablet 2 mg PO HS 04/14/24 10/03/24 collagenase clostridium histo. 250 1 applic topical DAILY 10/03/24 10/03/24 unit/gram topical ointment (Santyl) gabapentin 100 mg capsule 200 mg PO TID 10/03/24 10/03/24 hydrocortisone 2.5 % topical cream 1 applic topical BID 10/03/24 10/03/24 ipratropium 0.5 mg-albuterol 3 mg 3 ml inhalation Q2H PRN sob/wheeze 10/03/24 10/03/24 (2.5 mg base)/3 mL nebulization soln sodium hypochlorite 0.125 % 1 applic topical DAILY 10/03/24 10/03/24 solution (Dakin's Solution) sodium phosphates 19 gram-7 118 ml TN DAILY PRN Constipation 10/03/24 10/03/24 gram/118 mL enema (Fleet Enema) spironolactone 25 mg tablet 25 mg PO BID 10/03/24 10/03/24 Previous Rx's Medication Instructions Recorded metoprolol tartrate 25 mg tablet 25 mg PO Q12 #30 tabs 10/05/21 Results & Data (ED) Vital Signs Vital Signs - 24 hr 10/03/24 10:49 Pulse Rate 77 Respiratory Rate 18 Respiratory Effort / Characteristics Non-Labored Respiratory Depth Normal Respiratory Pattern Regular Blood Pressure 173/138 H Blood Pressure Mean 149 Pulse Oximetry 86 L Oxygen Delivery Method Room Air Sepsis Recent Fever Within 48 Hours No Sepsis New/Unexplained Change in Mental Status N/A Sepsis Action Taken by Nursing No Action Required Home Medications Current Medication List: was personally reviewed by me Laboratory Data Attestation: I reviewed the patient's lab results. 10/05/24 06:59 10/05/24 06:59 Lab Results 10/03/24 10/03/24 Range/Units 11:08 11:22 WBC 8.14 (4.8-10.8) K/ul RBC 4.33 (4.20-5.40) M/uL Hgb 12.5 (12.0-16.0) g/dl Hct 41.3 (37.0-47.0) % MCV 95.4 (80.0-100.0) fL MCH 28.9 (25.0-34.0) pg MCHC 30.3 L (32.0-36.0) g/dL RDW Std Deviation 57.9 H (36.4-46.3) fL RDW Coeff of Tatyana 16.7 H (11.5-14.5) % Plt Count 138 (130-400) K/uL MPV 11.2 (9.4-12.4) fL Immature Gran % (Auto) 0.6 % Neut % (Auto) 55.8 % Lymph % (Auto) 27.3 % Ford % (Auto) 13.8 % Eos % (Auto) 2.3 % Baso % (Auto) 0.2 % Neut # (Auto) 4.54 (1.40-6.50) K/uL Lymph # (Auto) 2.22 (1.20-3.40) K/uL Ford # (Auto) 1.12 H (0.11-0.59) K/uL Eos # (Auto) 0.19 (0.00-0.50) K/uL Baso # (Auto) 0.02 (0.00-0.20) K/uL Immature Gran # (Auto) 0.05 (0.01-0.20) K/uL PT 63.6 H (9.0-12.0) Seconds INR 7.0 H* (0.9-1.1) Sodium 136 (136-145) mmol/L Potassium 4.3 (3.5-5.1) mmol/L Chloride 94 L (98-107) mmol/L Carbon Dioxide 33 H (21-32) mmol/L Anion Gap 9 (3-11) BUN 82 H (6-23) mg/dl Creatinine 1.84 H (0.6-1.2) mg/dl Est Cr Clr Drug Dosing 30.7 ml/min eGFR 27.74 BUN/Creatinine Ratio 44.6 H (10-20) Glucose 146 H (70-99(Fasting)) mg/dl Osmolality 316 H (280-300) mOsm/kg Calcium 11.8 H (8.6-10.3) mg/dl Magnesium 2.7 H (1.7-2.4) mg/dl Total Bilirubin 1.2 H (0.2-1.0) mg/dl AST 8 L (13-39) U/L ALT 7 (7-52) U/L Alkaline Phosphatase 162 H (34-104) U/L Troponin I High Sens 119.5 H* (0-14) pg/ml Total Protein 5.5 L (6.0-8.3) gm/dl Albumin 3.3 L (3.4-5.0) gm/dl Globulin 2.2 L (2.5-4.0) gm/dl Albumin/Globulin Ratio 1.5 (0.9-2) Procalcitonin 0.71 H (0-0.5) ng/ml TSH 0.863 (0.300-4.500) uIu/ml Free T4 1.87 H (0.61-1.60) ng/dl Free T3 2.62 (2.3-4.2) pg/ml Adenovirus (PCR) Not Detected (NotDetected) B. pertussis DNA (PCR) Not Detected (NotDetected) B.parapertussis DNA PCR Not Detected (NotDetected) C. pneumoniae DNA (PCR) Not Detected (NotDetected) Coronavirus OC43 (PCR) Not Detected (NotDetected) Coronavirus HKU1 (PCR) Not Detected (NotDetected) Coronavirus 229E (PCR) Not Detected (NotDetected) SARS-CoV-2 (PCR) Not Detected (NotDetected) Coronavirus NL63 (PCR) Not Detected (NotDetected) Human Metapneumovir PCR Not Detected (NotDetected) Influenza Type A (PCR) Not Detected (NotDetected) Influenza Type B (PCR) Not Detected (NotDetected) M. pneumoniae (PCR) Not Detected (NotDetected) Parainfluenza 1 (PCR) Not Detected (NotDetected) Parainfluenza 2 (PCR) Not Detected (NotDetected) Parainfluenza 3 (PCR) Not Detected (NotDetected) Parainfluenza 4 (PCR) Not Detected (NotDetected) RSV (PCR) Not Detected (NotDetected) Entero/Rhino (PCR) Not Detected (NotDetected) Administered Medications Albuterol (Albut/Ipratrop 3mg/0.5mg Neb 3 Ml Vial) 3 ml NEB QIDR FIDEL; Protocol Stop: 11/02/24 18:59 Last Admin: 10/05/24 11:01 Dose: Not Given Documented By: Admin: 10/05/24 07:04 Dose: 3 ml Documented By: Admin: 10/04/24 19:44 Dose: 3 ml Documented By: Admin: 10/04/24 15:29 Dose: Not Given Documented By: Admin: 10/04/24 10:35 Dose: 3 ml Documented By: Admin: 10/04/24 06:59 Dose: 3 ml Documented By: Admin: 10/03/24 19:55 Dose: 3 ml Documented By: QGV Artificial Tears (Artificial Tears) 1 drops OPB BID FIDEL Stop: 11/02/24 20:59 Last Admin: 10/05/24 09:39 Dose: 1 drops Documented By: Admin: 10/04/24 21:37 Dose: Not Given Documented By: Admin: 10/04/24 09:02 Dose: 1 drops Documented By: Admin: 10/03/24 23:03 Dose: 1 drops Documented By: KMF Haloperidol Lactate (Haloperidol Lactate 5 Mg/Ml 1 Ml Vial) 1 mg IV Q4H PRN PRN Reason: hallucinations, agitation Stop: 11/04/24 11:39 Last Admin: 10/05/24 12:08 Dose: 1 mg Documented By: ORTEGA Acetaminophen (Ofirmev) 1,000 mg in 100 mls @ 400 mls/hr IV Q8H PRN PRN Reason: Fever Stop: 10/06/24 15:47 Last Infusion: 10/04/24 14:15 Dose: Infused Documented By: Admin: 10/04/24 13:48 Dose: 400 mls/hr Documented By: Infusion: 10/03/24 21:11 Dose: Infused Documented By: Admin: 10/03/24 20:36 Dose: 400 mls/hr Documented By: QGV Discontinued Medications Azithromycin (Azithromycin 250 Mg Tab) 500 mg PO NOW ONE Stop: 10/03/24 12:42 Last Admin: 10/03/24 12:55 Dose: 500 mg Documented By: WU Calcium/Vitamin D (Calcium 600mg + Vit D 400 Iu Tab) 1 tab PO BID FIDEL Stop: 11/02/24 20:59 Last Admin: 10/05/24 09:39 Dose: 1 tab Documented By: Admin: 10/04/24 21:29 Dose: Not Given Documented By: Admin: 10/04/24 09:03 Dose: 1 tab Documented By: Admin: 10/03/24 22:57 Dose: 1 tab Documented By: MARGARET Cyanocobalamin (Cyanocobalamin (B-12) 500 Mcg Tablet) 1,000 mcg PO DAILY FIDEL Stop: 11/03/24 08:59 Last Admin: 10/05/24 09:38 Dose: 1,000 mcg Documented By: Admin: 10/04/24 09:02 Dose: 1,000 mcg Documented By: BOBBI Ferrous Sulfate (Ferrous Sulfate 325 Mg Tab) 325 mg PO QAM FIDEL Stop: 11/03/24 08:59 Last Admin: 10/05/24 09:39 Dose: 325 mg Documented By: Admin: 10/04/24 09:03 Dose: 325 mg Documented By: BOBBI Folic Acid (Folic Acid 1 Mg Tab) 1 mg PO DAILY FIDEL Stop: 11/03/24 08:59 Last Admin: 10/05/24 09:39 Dose: 1 mg Documented By: Admin: 10/04/24 09:03 Dose: 1 mg Documented By: BOBBI Furosemide (Furosemide Inj 20 Mg/2 Ml Vial) 20 mg IV ONE ONE Stop: 10/03/24 12:32 Last Admin: 10/03/24 13:53 Dose: Not Given Documented By: WU Guaifenesin (Guaifenesin 600 Mg Tabcr) 1,200 mg PO BID FIDEL Stop: 11/03/24 20:59 Last Admin: 10/05/24 09:39 Dose: 1,200 mg Documented By: Admin: 10/04/24 21:29 Dose: Not Given Documented By: BRADY Hydrocortisone (Hydrocortisone Acetate 25 Mg Supp) 25 mg TN BID [facility] Stop: 11/02/24 20:59 Last Admin: 10/05/24 09:40 Dose: 25 mg Documented By: Admin: 10/04/24 21:29 Dose: Not Given Documented By: Admin: 10/04/24 09:04 Dose: 25 mg Documented By: Admin: 10/04/24 00:41 Dose: 25 mg Documented By: MARGARET Piperacillin Sod/Tazobactam Sod (Zosyn) 4.5 gm in 100 mls @ 25 mls/hr IV Q8H [facility]; Protocol Stop: 10/08/24 19:59 Last Infusion: 10/05/24 07:00 Dose: Infused Documented By: Admin: 10/05/24 02:49 Dose: 25 mls/hr Documented By: Infusion: 10/05/24 01:36 Dose: Infused Documented By: GT Admin: 10/04/24 21:36 Dose: 25 mls/hr Documented By: GT Infusion: 10/04/24 15:45 Dose: Infused Documented By: Admin: 10/04/24 11:38 Dose: 25 mls/hr Documented By: Infusion: 10/04/24 08:35 Dose: Infused Documented By: Admin: 10/04/24 03:39 Dose: 25 mls/hr Documented By: Infusion: 10/03/24 23:56 Dose: Infused Documented By: Admin: 10/03/24 19:56 Dose: 25 mls/hr Documented By: QGV Phytonadione 5 mg/ Dextrose 50.5 mls @ 101 mls/hr IV ONE ONE Stop: 10/03/24 13:45 Last Infusion: 10/03/24 15:18 Dose: Infused Documented By: Admin: 10/03/24 14:34 Dose: 101 mls/hr Documented By: WU Piperacillin Sod/Tazobactam Sod (Zosyn) 4.5 gm in 100 mls @ 200 mls/hr IV ONE ONE; Protocol Stop: 10/03/24 13:59 Last Infusion: 10/03/24 15:57 Dose: Infused Documented By: Admin: 10/03/24 15:15 Dose: 200 mls/hr Documented By: SHAHRAM Sodium Chloride (Nss) 1,000 mls @ 100 mls/hr IV .Q10H [facility] Stop: 10/04/24 14:59 Last Infusion: 10/04/24 14:40 Dose: Infused Documented By: Admin: 10/04/24 12:45 Dose: 100 mls/hr Documented By: Infusion: 10/04/24 12:21 Dose: Infused Documented By: Admin: 10/04/24 02:21 Dose: 100 mls/hr Documented By: Infusion: 10/04/24 01:55 Dose: Infused Documented By: Admin: 10/03/24 15:15 Dose: 100 mls/hr Documented By: SHAHRAM Sodium Chloride (Nss) 1,000 mls @ 80 mls/hr IV .[id number] [facility] Stop: 10/04/24 15:47 Last Admin: 10/03/24 17:29 Dose: Not Given Documented By: SHAHRAM Sodium Chloride (Nss) 250 mls @ 999 mls/hr IV .Q16M ONE Stop: 10/03/24 16:50 Last Infusion: 10/03/24 17:10 Dose: Infused Documented By: Admin: 10/03/24 16:45 Dose: 999 mls/hr Documented By: WU Lactated Ringer's (Lr) 250 mls @ 999 mls/hr IV .Q16M ONE Stop: 10/03/24 20:44 Last Infusion: 10/03/24 21:51 Dose: Infused Documented By: Admin: 10/03/24 21:25 Dose: 999 mls/hr Documented By: MARGARET Lactated Ringer's (Lr) 1,000 mls @ 80 mls/hr IV .[id number] [facility] Stop: 10/05/24 14:29 Last Infusion: 10/05/24 11:47 Dose: Infused Documented By: Admin: 10/05/24 01:54 Dose: 80 mls/hr Documented By: GTJuana Infusion: 10/05/24 01:54 Dose: Infused Documented By: Admin: 10/04/24 14:37 Dose: 80 mls/hr Documented By: BOBBI Lactated Ringer's (Lr) 250 mls @ 999 mls/hr IV .Q16M ONE Stop: 10/04/24 14:39 Last Infusion: 10/04/24 15:05 Dose: Infused Documented By: Admin: 10/04/24 14:37 Dose: 999 mls/hr Documented By: BOBBI Lactated Ringer's (Lr) 1,000 mls @ 999 mls/hr IV .Q1H1M ONE Stop: 10/04/24 17:25 Last Infusion: 10/04/24 17:35 Dose: Infused Documented By: Admin: 10/04/24 16:31 Dose: 999 mls/hr Documented By: BOBBI Hydrocortisone Sodium (Succinate 100 mg/ Syringe) 2 mls @ 4 mls/min IV NOW STA Stop: 10/04/24 16:31 Last Admin: 10/04/24 17:12 Dose: 4 mls/min Documented By: BOBBI Lactated Ringer's (Lr) 500 mls @ 999 mls/hr IV .Q31M ONE Stop: 10/04/24 17:10 Last Infusion: 10/04/24 17:50 Dose: Infused Documented By: Admin: 10/04/24 17:12 Dose: 999 mls/hr Documented By: BOBBI Lactated Ringer's (Lr) 250 mls @ 999 mls/hr IV .Q16M ONE Stop: 10/04/24 16:55 Last Infusion: 10/04/24 17:35 Dose: Infused Documented By: Admin: 10/04/24 17:13 Dose: 999 mls/hr Documented By: BOBBI Hydrocortisone Sodium (Succinate 50 mg/ Syringe) 1 mls @ 4 mls/min IV Q6H [facility] Stop: 11/03/24 21:59 Last Admin: 10/05/24 11:47 Dose: Not Given Documented By: Admin: 10/05/24 02:46 Dose: 4 mls/min Documented By: GT Admin: 10/04/24 22:50 Dose: 4 mls/min Documented By: JAYY Lactobacillus Acidophilus (Advanced Probiotic 625 Mg Capsule) 625 mg PO DAILY@1130 [facility]IDEL; Protocol Stop: 11/03/24 11:29 Last Admin: 10/05/24 11:47 Dose: Not Given Documented By: Admin: 10/04/24 09:02 Dose: 625 mg Documented By: BOBBI Levothyroxine Sodium (Levothyroxine Sodium 100 Mcg Tablet) 100 mcg PO DAILYBB [facility] Stop: 11/03/24 06:29 Last Admin: 10/05/24 06:21 Dose: Not Given Documented By: Admin: 10/04/24 06:35 Dose: 100 mcg Documented By: MARGARET Multivitamins/Minerals (Cerovite Adv Formula Tab) 1 tab PO DAILY [facility] Stop: 11/03/24 08:59 Last Admin: 10/05/24 09:39 Dose: 1 tab Documented By: Admin: 10/04/24 09:02 Dose: 1 tab Documented By: BOBBI Pantoprazole Sodium (Pantoprazole 40 Mg Tab) 40 mg PO DAILY [facility] Stop: 11/03/24 08:59 Last Admin: 10/05/24 09:38 Dose: 40 mg Documented By: Admin: 10/04/24 09:03 Dose: 40 mg Documented By: BOBBI Polyethylene Glycol (Polyethylene (Miralax) 17 Gm Pack) 17 gm PO DAILY [facility] Stop: 11/03/24 08:59 Last Admin: 10/05/24 09:40 Dose: Not Given Documented By: Admin: 10/04/24 09:04 Dose: 17 gm Documented By: BOBBI Warfarin Sodium (Warfarin Sod 2 Mg Tab) 2 mg PO DAILY@1600 [facility] Stop: 11/03/24 15:59 Last Admin: 10/04/24 15:48 Dose: 2 mg Documented By: BOBBI Imaging Data Radiologist's Impression: Chest X-Ray 10/03/24 11:16 XR chest 1V portable CLINICAL HISTORY: weakness COMPARISON STUDY: 04/14/2024 FINDINGS: There is stable prominent cardiomegaly with mild pulmonary vascular congestion. There is increased patchy opacity at the left base with obscuration of the left hemidiaphragm. No pneumothorax. IMPRESSION: 1. Mild CHF. 2. Pneumonia versus atelectasis left lung base. ACT 112: Negative or not required by law. Electronically signed by: Raymond Giron M.D. 10/03/2024 11:[address] 10/03/24 11:21 CT SCAN OF THE BRAIN WITHOUT IV CONTRAST CLINICAL HISTORY: Weakness. Confusion. COMPARISON STUDY: MRI of the brain April 11, 2018. Head CT April 14, 2024. TECHNIQUE: Unenhanced axial CT scan of the brain was performed from the vertex to the skull base. A dose lowering technique was utilized adhering to the principles of ALARA. CT DOSE: 625.8 mGy.cm FINDINGS: Brain parenchyma: No acute intracranial hemorrhage, midline shift or mass effect is present. Gonzales-white matter differentiation is preserved. There are no extra- axial fluid collections. There are no findings to suggest acute dural sinus thrombosis or acute territorial infarct. Left frontal encephalomalacia is unchanged. Atrophy is again noted. White matter hypodensities suggest mild small vessel disease. Ventricles, sulci, cisterns: There is no hydrocephalus. The basal cisterns are patent. Calvarium: There are no calvarial fractures. Stable findings following left- sided craniotomy. Sinuses and mastoids: The visualized paranasal sinuses are clear. The mastoid air cells are well pneumatized. Orbits: The bony orbits are grossly intact. IMPRESSION: No acute intracranial findings. No change in appearance of the brain. ACT 112: Electronically signed by: Dharmesh Booth M.D. 10/03/2024 11:58 AM Discharge Plan Visit Data Chief Complaint: Abnormal Labs/Diagnostic Testing Stated Complaint: ABNORMAL LAB, WEAKNESS, MENTAL STATUS CHANGE ED Provider: Aneudy Barros Discharge Problem: Pneumonia, Afib, Supratherapeutic INR, Chronic hypoxic respiratory failure Patient Disposition: Admitted As Inpatient Discharge Instructions Interventions: ED Discharge Assessment Last Done: 10/03/24 20:24 Discharge Problem: Pneumonia Qualifiers: Pneumonia type: due to unspecified organism Laterality: left Lung location: l ower lobe of lung Qualified Code(s): J18.9 - Pneumonia, unspecified organism Afib Qualifiers: Atrial fibrillation type: unspecified Qualified Code(s): I48.91 - Unspecified atrial fibrillation
--- NOTE | 2024-10-03 11:38 | XRay Report ---
XR chest 1V portable CLINICAL HISTORY: weakness COMPARISON STUDY: 04/14/2024 FINDINGS: There is stable prominent cardiomegaly with mild pulmonary vascular congestion. There is in creased patchy opacity at the left base with obscuration of the left hemidiaphragm. No pneumothorax. IMPRESSION: 1. Mild CHF. 2. Pneumonia versus atelectasis left lung base. ACT 112: Negative or not required by law. Electronically signed by: Raymond Giron M.D. 10/03/2024 11:37 AM
[2024-10-03 11:48] LABS: Basophils # (auto) 0.02 K/uL (0.00-0.20); Basophils % (auto) 0.2 %; Eosinophils # (auto) 0.19 K/uL (0.00-0.50); Eosinophils % (auto) 2.3 %; Hematocrit (blood only) 41.3 % (37.0-47.0); Hemoglobin 12.5 g/dl (12.0-16.0); Immature Granulocytes # (auto) 0.05 K/uL (0.01-0.20); Immature Granulocytes % (auto) 0.6 %; Lymphocytes # (auto) 2.22 K/uL (1.20-3.40); Lymphocytes % (auto) 27.3 %; Mean Corpuscular Hemoglobin 28.9 pg (25.0-34.0); Mean Corpuscular Hgb Conc 30.3 g/dL (32.0-36.0); Mean Corpuscular Volume 95.4 fL (80.0-100.0); Mean Platelet Volume 11.2 fL (9.4-12.4); Monocytes # (auto) 1.12 K/uL (0.11-0.59); Monocytes % (auto) 13.8 %; Neutrophils # (auto) 4.54 K/uL (1.40-6.50); Neutrophils % (auto) 55.8 %; Platelet Count 138 K/uL (130-400); RDW Coefficient of Variation 16.7 % (11.5-14.5); RDW Standard Deviation 57.9 fL (36.4-46.3); Red Blood Count 4.33 M/uL (4.20-5.40); White Blood Count 8.14 K/ul (4.8-10.8)
--- NOTE | 2024-10-03 11:59 | CT Scan Report ---
CT SCAN OF THE BRAIN WITHOUT IV CONTRAST CLINICAL HISTORY: Weakness. Confusion. COMPARISON STUDY: MRI of the brain April 11, 2018. Head CT April 14, 2024. TECHNIQUE: Unenhanced axial CT scan of the brain was performed from the vertex to the skull base. A dose lowering technique was utilized adhering to the principles of ALARA. CT DOSE: 625.8 mGy.cm FINDINGS: Brain parenchyma: No acute intracranial hemorrhage, midline shift or mass effect is present. Gonzales-whi te matter differentiation is preserved. There are no extra-axial fluid collections. There are no find ings to suggest acute dural sinus thrombosis or acute territorial infarct. Left frontal encephalomala monet is unchanged. Atrophy is again noted. White matter hypodensities suggest mild small vessel diseas e. Ventricles, sulci, cisterns: There is no hydrocephalus. The basal cisterns are patent. Calvarium: There are no calvarial fractures. Stable findings following left-sided craniotomy. Sinuses and mastoids: The visualized paranasal sinuses are clear. The mastoid air cells are well pneu matized. Orbits: The bony orbits are grossly intact. IMPRESSION: No acute intracranial findings. No change in appearance of the brain. ACT 112: Electronically signed by: Dharmesh Booth M.D. 10/03/2024 11:58 AM
[2024-10-03 12:00] LABS: Albumin Globulin Ratio 1.5 (0.9-2); Albumin Level 3.3 gm/dl (3.4-5.0); BUN Creatinine Ratio 44.6 (10-20); Bilirubin,Total 1.2 mg/dl (0.2-1.0); Calcium 11.8 mg/dl (8.6-10.3); Creatinine Clr Calc Pharmacy 30.7 ml/min; Globulin 2.2 gm/dl (2.5-4.0); Magnesium 2.7 mg/dl (1.7-2.4); Potassium 4.3 mmol/L (3.5-5.1); Total Protein 5.5 gm/dl (6.0-8.3)
[2024-10-03 12:09] LABS: Prothrombin Time 63.6 Seconds (9.0-12.0)
[2024-10-03 12:16] LABS: Thyroid Stimulating Hormone 0.863 uIu/ml (0.300-4.500)
[2024-10-03 12:33] LABS: Adenovirus PCR Not Detected (NotDetected); Bordetella parapertussis PCR Not Detected (NotDetected); Bordetella pertussis PCR Not Detected (NotDetected); Chlamydia pneumoniae PCR Not Detected (NotDetected); Coronavirus 229E PCR Not Detected (NotDetected); Coronavirus CoV-2 (COVID19)PCR Not Detected (NotDetected); Coronavirus HKU1 PCR Not Detected (NotDetected); Coronavirus NL63 PCR Not Detected (NotDetected); Coronavirus OC43PCR Not Detected (NotDetected); Human Metapneumovirus PCR Not Detected (NotDetected); Influenza A PCR Not Detected (NotDetected); Influenza B PCR Not Detected (NotDetected); Mycoplasma pneumoniae PCR Not Detected (NotDetected); Parainfluenza Virus 1 PCR Not Detected (NotDetected); Parainfluenza Virus 2 PCR Not Detected (NotDetected); Parainfluenza Virus 3 PCR Not Detected (NotDetected); Parainfluenza Virus 4 PCR Not Detected (NotDetected); Respiratory Syncytial VirusPCR Not Detected (NotDetected); Rhinovirus/Enterovirus PCR Not Detected (NotDetected)
[2024-10-03 12:47] LABS: Troponin I High Sensitivity 119.5 pg/ml (0-14)
[2024-10-03] MEDS: FUROSEMIDE INJ 20 MG/2 ML VIAL IV ONE (12:55)
[2024-10-03] MEDS: AZITHROMYCIN 250 MG TAB PO ONE (12:55)
--- NOTE | 2024-10-03 13:27 | History & Physical Report ---
Date of Service October 03, 2024 Assessment & Plan (1) Pneumonia: Plan: Left lower lobe with associated parapneumonic effusion. This does not appear to be congestive heart failure. BNP is likely to be elevated however due to presence of chronic cor pulmonale. Sputum and blood cultures have been requested. Intravenous Zosyn for now, day 1. Adjust antibiotic coverage per culture results (2) Metabolic encephalopathy: Plan: Supportive care. Treat underlying pneumonia (3) Coumadin toxicity: Plan: INR is markedly elevated. Fortunately there is no overt bleeding. Coumadin has been placed on hold. Intravenous vitamin K ordered x 1 today, October 03. Serial labs (4) Chronic respiratory failure: Plan: She is on her usual supplemental oxygen and 93% at 2 L. Continue oxygen per nasal cannula to maintain saturation greater than 90% (5) COPD (chronic obstructive pulmonary disease): Plan: By history. Currently stable. Treat left lower lobe pneumonia and effusion. (6) Chronic atrial fibrillation: Plan: Rate controlled. Continue metoprolol. Coumadin has been placed on hold however due to Coumadin toxicity. Telemetry Plan Hopeful return to [facility] care sometime later this week History of Present Illness Chief Complaint: Sent from [facility] due to mental status changes Primary Care Provider: [facility] 79-year-old white female who has been bedfast at [facility] for several years. Staff noticed a change in her mental status and she has a nonproductive cough. She was sent to the ED for evaluation. She was found to have Coumadin toxicity and acute kidney injury. Chest x-ray reveals left lower lobe infiltrate and left-sided effusion. Right side is clear. She has chronic respiratory failure and underlying COPD and is 93% on her usual 2 L of oxygen per nasal cannula. I doubt if she has overt CHF but BNP is pending and likely to be elevated due to her chronic cor pulmonale. Blood and urine cultures have been requested. She has been started on intravenous Zosyn. Her most recent urine culture in June of this year grew Citrobacter and Enterococcus faecalis. Alvarez catheter has been placed while in the ED and IV fluids started. She has a chronic sacral decubitus and wound care nursing has also been consulted. She is a DNR patient. Allergies Allergy/AdvReac Type Severity Reaction Status Date / Time cephalexin Allergy Severe HIVES Verified 04/14/24 13:07 strawberry Allergy Severe hives Verified 04/14/24 11:39 sulfamethoxazole Allergy Mild Rash Verified 12/23/23 10:22 [From Bactrim] trimethoprim [From Bactrim] Allergy Mild Rash Verified 12/23/23 10:22 amoxicillin [From Augmentin] AdvReac Mild Diarrhea, Verified 04/14/24 11:39 nausea clavulanic acid AdvReac Mild Diarrhea, Verified 04/14/24 11:39 [From Augmentin] nausea Unclassified Drugs Allergy Mild DIAL SOAP Uncoded 04/14/24 11:39 - RASH Home Medications Medication Instructions Recorded Confirmed Type magnesium hydroxide 400 mg/5 mL 30 ml PO DIRECTED PRN 06/12/19 04/14/24 History oral suspension (Milk of Magnesia) Constipation sennosides 8.6 mg tablet (senna) 8.6 mg PO DAILY PRN Constipation 06/12/19 04/14/24 History Lactobacillus acidophilus 1 cap PO DAILY 07/03/19 04/14/24 History ferrous sulfate 325 mg (65 mg 325 mg PO QAM 10/10/19 04/14/24 History iron) tablet,delayed release acetaminophen 325 mg tablet 650 mg PO Q6 PRN Pain/fever 12/07/19 04/14/24 History (Tylenol) calcium 500 mg (as 1 tab PO BID 12/07/19 04/14/24 History carbonate)-vitamin D3 5 mcg (200 unit) tablet (Calcium 500 + D) cyanocobalamin (vitamin B-12) 1,000 mcg PO DAILY 09/28/21 04/14/24 History 1,000 mcg tablet (Vitamin B-12) diclofenac sodium 1 % topical gel 2 g topical QID 09/28/21 04/14/24 History folic acid 1 mg tablet 1 mg PO DAILY 09/28/21 04/14/24 History melatonin 5 mg tablet 5 mg PO HS 09/28/21 04/14/24 History pantoprazole 40 mg tablet,delayed 40 mg PO DAILY 09/28/21 04/14/24 History release polyethylene glycol 3350 17 gram 17 g PO DAILY 09/28/21 04/14/24 History oral powder packet (Miralax) sennosides 8.6 mg-docusate sodium 1 tab-cap PO BID 09/28/21 04/14/24 History 50 mg tablet (Senna-S) metoprolol tartrate 25 mg tablet 25 mg PO Q12 #30 tabs 10/05/21 04/14/24 Rx gabapentin 100 mg capsule 100 mg PO TID #90 caps 02/03/22 04/14/24 Rx ropinirole 0.25 mg tablet 0.25 mg PO HS PRN restless leg(s) 02/03/22 04/14/24 Rx #30 tabs aluminum-mag hydroxide-simethicone 30 ml PO QID PRN 04/04/23 04/14/24 History 400 mg-400 mg-40 mg/5 mL oral susp Heartburn/Gas/Nausea artificial tears(hypromellose) 0.4 1 drp ophthalmic (eye) BID 04/14/24 04/14/24 History % eye drops bisacodyl 10 mg rectal suppository [address] DAILY PRN Constipation 04/14/24 04/14/24 History (Dulcolax (bisacodyl)) carbamide peroxide 6.5 % ear drops 2 drp otic (ear) QID 04/14/24 04/14/24 History (Debrox) eucalyptus-menthol oral mucosal 1 portillo mucous membrane Q2H PRN Cough 04/14/24 04/14/24 History lozenge hydrocortisone acetate [address] BID 04/14/24 04/14/24 History rectal suppository ipratropium 0.5 mg-albuterol 3 mg 3 ml NEB QID COPD 04/14/24 04/14/24 History (2.5 mg base)/3 mL nebulization soln levothyroxine 100 mcg tablet 100 mcg PO DAILY 04/14/24 04/14/24 History mineral oil-isopropyl myristat 1 applic topical DAILY 04/14/24 04/14/24 History lotion multivitamin with minerals 1 tab PO DAILY 04/14/24 04/14/24 History warfarin 4 mg tablet 4 mg PO HS 04/14/24 04/14/24 History witch santa 20 % topical pads 1 pad topical DAILY PRN Hemorrhoids 04/14/24 04/14/24 History fosfomycin tromethamine 3 gram 3 g PO ONCE 1 dose #1 ea 04/16/24 Rx oral packet Past Med/Surg History Problem List (Updated 04/17/24 @ 00:07 by Background Jared) Chronic atrial fibrillation COPD (chronic obstructive pulmonary disease) Chronic respiratory failure Coumadin toxicity Metabolic encephalopathy Pneumonia AMS (altered mental status) (Acute) Observed seizure-like activity (Acute) Breast cancer in situ Morbid obesity DVT prophylaxis DNR (do not resuscitate) Pain management Hypothyroidism Chronic hypoxic respiratory failure Chronic combined systolic and diastolic CHF (congestive heart failure) Chronic systolic (congestive) heart failure Afib Vesicovaginal fistula Nephrolithiasis (Chronic) Lumbar spinal stenosis Ductal carcinoma in situ (DCIS) of left breast Abnormal left breast mammogram Status post core needle biopsy December 07, 2017 Intraductal carcinoma, grade 3 Estrogen receptor negative and progesterone receptor negative Status post lumpectomy 02/23/2018 Stage pTis pNX Status post completion of radiation therapy May 12, 2018. She received 5130 cGy. Degenerative joint disease (DJD) of hip Neuropathy Pressure ulcer of coccygeal region, stage 2 Hematuria DVT (deep venous thrombosis) Hyperkalemia Elevated alkaline phosphatase level Edema GLORIA (acute kidney injury) Lesion of bladder Gross hematuria Anemia Eosinophilic cystitis (Chronic) Incontinence (Chronic) Urinary frequency Chronic prescription opiate use Morbid obesity with BMI of 45.0-49.9, adult Hematoma Respiratory failure with hypercapnia (Acute) Volume overload Ptosis Rotator cuff syndrome of right shoulder Anxiety Left renal mass Bilateral hydronephrosis Hypothyroidism Pulmonary hypertension severe Cor pulmonale Acute and chronic respiratory failure, unspecified whether with hypoxia or hypercapnia Meningioma s/p resection per remote [place] records Lymphedema upper and lower extremities, stable per pt Anosmia 2/2 resection of benign brain tumor Peripheral neuropathy Atrial fibrillation dx few years ago - PCP monitors - on ASA, BB. Not on additional anticoagulation due to fall risk and prior meningioma. Hyperlipidemia Hypertension controlled, stable per pt Seizure sz first episode 2014, discovered brain tumor; additional sz S/P BRAIN TUMOR REMOVAL IN 2016; last seizure 2017. No longer on seizure medications. Stress incontinence in female History of craniotomy HX OF BENIGN TUMOR REMOVAL IN 2017-TEMPORAL MENINGIOMA Osteoarthritis History of laminectomy LUMBAR History of total knee replacement BILATERAL History of total shoulder replacement RIGHT History of ankle fusion RIGHT History of DVT (deep vein thrombosis) 20+ years ago/after ankle fx GERD (gastroesophageal reflux disease) controlled, stable per pt Spinal stenosis with neuropathy History of benign brain tumor s/p removal 2017 Raynauds disease COPD (chronic obstructive pulmonary disease) controlled, stable per pt; last albuterol treatment last evening-pt states that is routine TID History of lumpectomy of left breast Left breast lumpectomy with needle localization (02/22/18): LMA#4 at [facility] -- LUE LIMB RESTRICTION Medical History Cor pulmonale, chronic Sleep apnea Obesity hypoventilation syndrome Limb alert care status On home O2 correction resident Mixed incontinence Hx of pneumonia due to Klebsiella pneumoniae [place] (hard of hearing) Chronic constipation History of cellulitis Cognitive communication deficit Morbid obesity History of COVID-19 Immobility Hearing deficit History of breast cancer Dizziness Heart valve regurgitation Surgical History History of bladder surgery History of mastectomy S/P IVC filter H/O hernia repair H/O Spinal surgery S/P PICC central line placement History of ovarian cystectomy History of repair of hiatal hernia History of breast biopsy Family History Mother , Passed age 62 of [place] Diabetes Coronary heart disease Hypertension Stroke Father , Passed age 68 of accident (fell down steps) No problems noted. Brother Family history of diabetes mellitus Diabetes Brother No problems noted. Sister Slow to wake up after anesthesia twin sister Breast cancer Twin - Left Breast - Lumpectomy/Chemo/RXT Sister No problems noted. Sister No problems noted. Sister No problems noted. Sister No problems noted. Son Sarcoidosis Son No problems noted. Daughter No problems noted. Grandmother (Paternal) Family history of diabetes mellitus Grandmother (Maternal) Family history of diabetes mellitus Mother Family history of diabetes mellitus Social History Smoking Status: Former smoker Tobacco Type: Cigarettes Cigarettes Per Day: HX OF SOCIAL CIGARETTE, QUIT 25 YEARS AGO.; Second Hand Exposure: No; Do You Dip or Chew Tobacco: No; Hx Alcohol Use: No Hx Substance Use: No Preferred Language: German Communication Ability: Effective Communication Ability Comment: per records Visual Impairment: No Limitations Hearing Ability: Use of Hearing Aid Android Programmer Required: No Beliefs That Will Affect Care: None marital status: Current Living Situation: Senior Care Current Living Situation Comment: [facility] 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 She is able to state that she has a cough, occasionally productive of discolored sputum Physical Exam 2 Physical Exam: General-alert and oriented x3, no fever, no chills HEENT-head atraumatic and normocephalic, pupils equal and reactive to light, extraocular muscles intact Neck-no lymphadenopathy or thyromegaly, trachea midline Chest-diffuse bilateral rhonchi. Dullness and diminished breath sounds at the left base. No inspiratory rales. No wheezing Cardiac-irregular rhythm consistent with atrial fibrillation. Controlled rate. Normal S1 and S2 Abdomen-normal bowel sounds, no hepatosplenomegaly Extremities-chronic appearing 2+ bilateral lower extremity edema below the knees Neuro-encephalopathic. No apparent focal deficits. Cranial nerves II through XII intact, motor and sensory function within normal limits, strength symmetrical with generalized weakness Psych-encephalopathic. Cannot assess Results & Data Results & Data Vital Signs (Past 12 Hours) Vital Signs Pulse Resp BP Pulse Ox O2 Del Method O2 Flow Rate 10/03/24 11:59 79 10/03/24 11:21 74 19 93 Nasal Cannula 2 10/03/24 10:49 77 18 173/138 H 86 L Room Air Laboratory Results 10/03/24 11:08 10/03/24 11:08 Code Status & VTE Plan Code Status DNR/DNI PG Care Time/CCT Total # of Minutes Spent Total Time Spent with Patient: Total time spent is greater than 50% in coordination of care (as documented) at patient's floor/unit and/or counseling patient: Coding Level of Care Code 94377 INT INP/OBS CARE 3/75MIN Diagnoses Pneumonia J18.9 Metabolic encephalopathy G93.41 Coumadin toxicity T45.511A Chronic respiratory failure J96.10 COPD (chronic obstructive pulmonary disease) J44.9 Chronic atrial fibrillation I48.20
--- NOTE | 2024-10-03 13:28 | Electrocardiogram Report ---
Test Reason : Blood Pressure : */* mmHG Vent. Rate : 73 BPM Atrial Rate : * BPM P-R Int : * ms QRS Dur : 88 ms QT Int : 372 ms P-R-T Axes : * 14 172 degrees QTcB Int : 409 ms Atrial fibrillation Anterior infarct Nonspecific T wave abnormality Abnormal ECG When compared with ECG of 15-Apr-2024 15:59, No significant change Confirmed by Leobardo Johnson ([id number]) on 10/03/2024 1:28:25 PM Referred By: Confirmed By: Leobardo Johnson
[2024-10-03 13:57] LABS: T4 Free Thyroxine 1.87 ng/dl (0.61-1.60)
[2024-10-03] MEDS: PHYTONADIONE 5 MG in DEXTROSE 5% 50 ML IV ONE (14:34)
[2024-10-03] MEDS: SODIUM CHLORIDE 0.9% 1,000 ML IV SCH ×2 (15:15→17:29)
[2024-10-03] MEDS: PIPERACILLIN/TAZOBACTAM 4.5 GM/100 ML BAG IV ONE (15:15)
[2024-10-03] MEDS ORDERED: ONDANSETRON INJ 2 MG/ML 2 ML VIAL IV PRN (15:48)
[2024-10-03] MEDS ORDERED: ACETAMINOPHEN 325 MG TAB PO PRN (15:48)
[2024-10-03 16:16] LABS: Appearance Urine Turbid (Clear); Bacteria Urine Automated 4+ (None Seen); Bilirubin Urine 2+ (Negative); Blood Urine 3+ (Negative); Color Urine Orange; Epithelial Cell Urine Auto 0-2 /hpf (0-2); Glucose Urine UA Negative (Negative); Ketones Urine Negative (Negative); Leukocyte Esterase Urine 3+ (Negative); Nitrite Urine Positive (Negative); Protein Urine 3+ (Negative); RBC Urine Automated >20 /hpf (0-2); Specific Gravity Urine 1.022 (1.000-1.030); Triple Phosphate Crystal Urine Present (None Prsent); Urobilinogen Urine Positive (Negative); WBC Urine Automated 21-50 /hpf (0-5); pH Urine 7.5 (4.5-7.5)
[2024-10-03] MEDS: SODIUM CHLORIDE 0.9% 250 ML IV ONE (16:45)
[2024-10-03] MEDS: ALBUT/IPRATROP 3MG/0.5MG NEB 3 ML VIAL NEB SCH (19:55)
[2024-10-03] MEDS: PIPERACILLIN/TAZOBACTAM 4.5 GM/100 ML BAG IV SCH (19:56)
[2024-10-03] MEDS: ACETAMINOPHEN 1,000 MG/100 ML VIAL IV PRN (20:36)
[2024-10-03] MEDS ORDERED: METOPROLOL TARTRATE 25 MG TAB PO SCH (21:00)
[2024-10-03] MEDS: LACTATED RINGER'S 250 ML IV ONE (21:25)
--- NOTE | 2024-10-03 21:48 | Communication Note ---
Date of Service: October 03, 2024 Urology was consulted for Alvarez catheter placement. I reported to the floor discussed with nursing staff and reportedly nursing staff in the emergency department was unable to successfully place a Alvarez catheter due to excoriations noted in patient's perineal area and unable to adequately identify appropriate anatomy. I discussed with the floor nurse attending to the patient at this time and she notes that the patient is incontinent of urine but has a pure wick in place which appears to be working appropriately. She notes that the patient is not retaining urine. While I was in attendance she performed a bladder scan which did not identify urinary retention. I also discussed with the hospitalist service and there does not appear to be any underlying need for Alvarez catheter placement. I discussed with nursing staff that as long as pure wick was working adequately we will hold on placing Alvarez catheter at this time. I did discuss with nursing staff to monitor the patient for urinary retention and if this becomes a problem urology can be contacted in consultation for Alvarez placement can be made at that time.
[2024-10-03] MEDS: CALCIUM 600MG + VIT D 400 IU TAB PO SCH (22:57)
[2024-10-03] MEDS: ARTIFICIAL TEARS OPB SCH (23:03)
[2024-10-04] MEDS: HYDROCORTISONE ACETATE 25 MG SUPP PR SCH (00:41)
[2024-10-04] MEDS: LEVOTHYROXINE SODIUM 100 MCG TABLET PO SCH (06:35)
[2024-10-04 07:42] LABS: Basophils # (auto) 0.02 K/uL (0.00-0.20); Basophils % (auto) 0.3 %; Eosinophils # (auto) 0.16 K/uL (0.00-0.50); Eosinophils % (auto) 2.3 %; Hematocrit (blood only) 33.6 % (37.0-47.0); Hemoglobin 10.5 g/dl (12.0-16.0); Immature Granulocytes # (auto) 0.06 K/uL (0.01-0.20); Immature Granulocytes % (auto) 0.9 %; Lymphocytes % (auto) 22.9 %; Mean Corpuscular Hemoglobin 29.5 pg (25.0-34.0); Mean Corpuscular Hgb Conc 31.3 g/dL (32.0-36.0); Mean Corpuscular Volume 94.4 fL (80.0-100.0); Mean Platelet Volume 11.8 fL (9.4-12.4); Monocytes # (auto) 0.98 K/uL (0.11-0.59); Neutrophils # (auto) 4.16 K/uL (1.40-6.50); Neutrophils % (auto) 59.6 %; Platelet Count 121 K/uL (130-400); RDW Coefficient of Variation 16.6 % (11.5-14.5); Red Blood Count 3.56 M/uL (4.20-5.40); White Blood Count 6.98 K/ul (4.8-10.8)
[2024-10-04 07:59] LABS: BUN Creatinine Ratio 46.6 (10-20); Calcium 10.7 mg/dl (8.6-10.3); Creatinine Clr Calc Pharmacy 32.7 ml/min; Potassium 3.8 mmol/L (3.5-5.1)
[2024-10-04 08:09] LABS: INR 1.3 (0.9-1.1); Prothrombin Time 13.5 Seconds (9.0-12.0)
[2024-10-04] MEDS: CYANOCOBALAMIN (B-12) 500 MCG TABLET PO SCH (09:02)
[2024-10-04] MEDS: ADVANCED PROBIOTIC 625 MG CAPSULE PO SCH (09:02)
[2024-10-04] MEDS: CEROVITE ADV FORMULA TAB PO SCH (09:02)
[2024-10-04] MEDS: PANTOprazole 40 MG TAB PO SCH (09:03)
[2024-10-04] MEDS: FOLIC ACID 1 MG TAB PO SCH (09:03)
[2024-10-04] MEDS: FERROUS SULFATE 325 MG TAB PO SCH (09:03)
[2024-10-04] MEDS: POLYETHYLENE (MIRALAX) 17 GM PACK PO SCH (09:04)
[2024-10-04] MEDS: LACTATED RINGER'S 250 ML IV ONE ×2 (14:37→17:13)
[2024-10-04] MEDS: LACTATED RINGER'S 1,000 ML IV SCH (14:37)
--- NOTE | 2024-10-04 15:32 | Hospitalist Progress Note ---
Date of Service October 04, 2024 Assessment & Plan (1) Pneumonia: Plan: 79-year-old female with a past medical history of cor pulmonale, pulmonary hypertension, HFrEF, morbid obesity, A-fib on warfarin, COPD, spinal stenosis, Raynaud's, hyperlipidemia, hypertension who presented from [facility], [place] where she has been a resident for several years. She had an acute mental status change and confusion, nonproductive cough, and had a markedly elevated INR. On ER evaluation she was found to have left lower lobe pneumonia with left-sided effusion suspected parapneumonic. She does have a history of CHF however mild BNP elevation was suspected to be due to history of cor pulmonale and clinically patient was volume contracted with dry mucous membranes, tachycardia, mild hypotension and no evidence of bilateral effusions or lower extremity edema. She was admitted for pneumonia treatment and further care. Night of admission Alvarez catheter was attempted however this is not able to be passed. Was seen by urology PA overnight and was noted to have excoriations in perineal area with difficulty identifying appropriate anatomy. Purewick was draining appropriately and was not retaining urine and therefore did not have an indication for Alvarez and this was deferred at that time. Metabolic encephalopathy, altered mental status CThead on admission without acute findings. Patient was with a supratherapeutic INR however no evidence of ICH seen Suspected metabolic encephalopathy of infection, with both evidence of UTI and pneumonia on admission Worsening delirium midday 10/04 Left lower lobe pneumonia Associated parapneumonic effusion on x-ray. Some pulmonary vascular congestion however no overt edema and patient appeared clinically dry on admitting exam Continue Zosyn Sputum/blood cultures pending MRSA nare negative Continue IV FM until p.o. intake improving. 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 Did not surgical follow-up. Discussion with family/POA they did follow-up on this unfortunately she is not a surgical candidate and was told that she would likely have multiple recurrent UTIs. History of seizure-like activity Reportedly diagnosed with seizure disorder however had not had observed seizure activity as inpatient, Oxybutynin, Protonix, ropinirole, melatonin, and gabapentin were discontinued at prior hospitalization due to mentation change. Patient tolerated this well at the time in April 2024 No seizure activity noted, continue monitoring. Chronic respiratory failure Baseline 2 L oxygen requirement. Likely with some OHS Titrate oxygen as needed to maintain O2 sat greater than 90%. Currently at baseline requirement CKD/GLORIA Baseline creatinine generally around 1.3 however earlier in September was elevated at 1.7 Creatinine 1.84 following admission, downtrending slightly to 1.78 following fluids Mildly elevated BNP suspected from cor pulmonale. Chest x-ray has a unilateral effusion associated with suspected pneumonia, no bilateral effusions overt pulmonary edema or lower extremity edema is present. Did have some pulmonary vascular congestion. Clinically with dry mucous membranes, lack of edema and poor intake was suspected to be contracted. Continue reassessments and fluids as clinically indicated. Repeat CXR in AM. CTA/P pending to evaluate for struct of stones given worsening GLORIA and Proteus on UCx Supratherapeutic INR INR 5.6 on admission, repeat 7.0. Received vitamin K Subsequently rapidly downtrended at 1.3 Coumadin resumed, titrate as needed to goal INR 23 Bridging not currently recommended/supported by data. Patient is history of A-fib no history of VTE A-fib Rate controlled. A-fib rates 80s90s Toprol held for hypotension Warfarin as noted Right lower extremity necrotic wound, sacral wound Right lower extremity with area of contained hematoma, necrosis, and erythema No purulence Antibiotics as noted, wound care consulted Sacral wound precautions, wound care following DVT prophylaxis: Warfarin Diet: Heart healthy (2) Metabolic encephalopathy: (3) Coumadin toxicity: (4) Chronic respiratory failure: (5) COPD (chronic obstructive pulmonary disease): (6) Chronic atrial fibrillation: Admission and Anticipated Discharge Date Admission Date: October 03, 2024 Subjective Seen at the bedside. Somnolent, awakens to voice but is confused. He is not oriented to place or year. She is oriented to name. When she awakened she denies pain, chest pain, shortness of breath. Limited history due to mentation. Pending collateral from family Physical Exam Physical Exam: General: Not oriented to place. Somnolent. Awakens easily in the morning. HEENT: Atraumatic, normocephalic. Poor dentition. Vision and hearing grossly intact Pulm: Coarse, left lower quadrant greater than right with rhonchi. No overt rales symmetrical chest rise. No increased work of breathing. No respiratory distress. Cardiac: Irregularly irregular, soft systolic murmur. Radial pulses intact and symmetrical. Abdominal: Minimal epigastric tenderness. Abdomen otherwise nontender, no rebound/guarding. No rigidity Extremities:Right lower extremity with necrotic erythematous ulceration and area of underlying hematoma. Dressing replaced. Skin: Perianal/sacral ulcer present with mild surrounding erythema no purulent discharge Results & Data Results & Data Vital Signs (Past 12 Hours) Vital Signs Temp Pulse Pulse Pulse Resp BP Pulse Ox 10/04/24 15:03 99 H 10/04/24 11:43 36.5 C 96 H 18 102/55 L 91 10/04/24 10:35 96 H 18 95 10/04/24 10:31 10/04/24 07:37 36.4 C L 93 H 18 92/57 L 99 10/04/24 07:28 79 10/04/24 06:59 81 17 98 10/04/24 03:58 36.6 C 92 H 20 119/92 100 O2 Del Method O2 Flow Rate 10/04/24 15:03 10/04/24 11:43 Nasal Cannula 2 10/04/24 10:35 Nasal Cannula 2 10/04/24 10:31 Nasal Cannula 2 10/04/24 07:37 Nasal Cannula 2 10/04/24 07:28 10/04/24 06:59 Nasal Cannula 2 10/04/24 03:58 Nasal Cannula 2 PG Care Time/CCT Total # of Minutes Spent Total Time Spent with Patient: Total time spent is greater than 50% in coordination of care (as documented) at patient's floor/unit and/or counseling patient: Coding Level of Care Code 62978 SUB INP/OBS CARE 3/50MIN Diagnoses Pneumonia J18.9 Metabolic encephalopathy G93.41 Coumadin toxicity T45.511A Chronic respiratory failure J96.10 COPD (chronic obstructive pulmonary disease) J44.9 Chronic atrial fibrillation I48.20
[2024-10-04] MEDS: WARFARIN SOD 2 MG TAB PO SCH (15:48)
[2024-10-04] MEDS: LACTATED RINGER'S 1,000 ML IV ONE (16:31)
[2024-10-04 16:36] LABS: Base Excess VBG 0.7 mEq/L; HCO3 VBG 25 mmol/L; Oxygen Saturation VBG 60.9 %; PCO2 VBG 40 mmHg (38-50); PO2 VBG 37 mmHg; pH VBG 7.41 (7.36-7.41)
[2024-10-04] MEDS: LACTATED RINGER'S 500 ML IV ONE (17:12)
[2024-10-04] MEDS: HYDROCORTISONE SOD 100 MG in SYRINGE 0 ML IV STA (17:12)
--- NOTE | 2024-10-04 18:01 | CT Scan Report ---
CT CHEST ABDOMEN and PELVIS WITHOUT CONTRAST INDICATION: SEPSIS TECHNIQUE: CT of chest, abdomen and pelvis was obtained without intravenous contrast. IV CONTRAST: 100 mL of OMNIPAQUE 300 Enteric contrast: Not Given COMPARISON: None FINDINGS: LOWER NECK: 2.0 cm right thyroid lobe nodule. LYMPH NODES: A few small nonenlarged lymph nodes in the mediastinum. No lymphadenopathy by size criteria. CARDIOVASCULAR: Cardiac size is enlarged. Coronary artery and valvular calcifications are noted. No aortic aneurysm. LUNGS: There is moderate quantity of debris in the trachea and the mainstem bronchi bilaterally. There is mucoid impaction of the airway supplying the lower lobes with left greater than right atelectatic changes of the lungs. Superimposed pneumonia may be present as well. There are multiple pulmonary nodular densities measuring up to 5 mm, for example in the right middle lobe (series 4, image 92). Extensive bronchiolitic changes with peribronchial cuffing and tree-in-bud nodular opacities in both lungs, especially involving the upper lobes. PLEURA: There is a small left pleural fluid. There is no pneumothorax. LIVER: No focal lesion identified. Surface nodular contour to the liver. There is a hypodense lesion near the right hepatic dome measuring 2.0 cm. GALLBLADDER/BILIARY: Unremarkable gallbladder. No abnormal biliary dilatation. SPLEEN: Splenomegaly. PANCREAS: Unremarkable. ADRENALS: Nodular thickening with probable adenomas. KIDNEYS: Atrophic kidneys bilaterally. Bilaterally there are nonobstructing large renal calculi. For example in the left kidney pelvis, there is a staghorn calculus measuring up to 3.4 cm. No hydronephrosis PERITONEUM/RETROPERITONEUM. moderate lymphadenopathy of unknown etiology in the retroperitoneum and portacaval areas. No aortic aneurysm. Extensive atherosclerosis with stenoses at the origins of the celiac trunk, SMA, the renal arteries and the KEYUR. There is an IVC filter in place. GASTROINTESTINAL: No obstruction. Surgical sutures are noted over the esophageal hiatus. REPRODUCTIVE: Calcified lesions of the uterus likely representing fibroids. There is air in the vaginal canal. URINARY BLADDER: Underdistended with moderate paravesical inflammation. There is intraluminal air. ABDOMINAL WALL: Moderate anasarca. BONES: No acute findings. There is dysplastic appearance of the right hip joint with shallow acetabular coverage. Chronic deformity of the right femoral head with superolateral translation. There is moderate right hip joint fluid. Right shoulder arthroplasty. Lower lumbar spine laminectomies. IMPRESSION: Evidence of aspiration with moderate quantity of debris in the trachea, the mainstem bronchi bilaterally extending into the lower lobe airways. There are resultant atelectatic changes in left greater than right lung bases. Superimposed pneumonia may be present in the lung bases. Extensive bronchiolitis in the lungs, particular involving the upper lobes. Patchy densities in these areas likely representing pneumonia. Also noted are diffuse groundglass opacification in perihilar distribution. This could represent pulmonary edema or additional alveolar pneumonia. Multiple pulmonary nodular densities measuring up to 5 mm may be infectious/inflammatory in nature given the above clinical context however recommend follow-up with thoracic CT in 3 months to reassess. Inflammatory changes of the urinary bladder may be due to cystitis. Please correlate with urinalysis. Air within the urinary bladder may relate to recent instrumentation. Please clinically correlate with medical history. There is air in the vaginal canal that is not specific. Process as rectovaginal fistula not excluded Chronic deformity of the right hip joint with dysplastic appearance. Moderate right hip joint fluid. If there is concern for septic joint, fluid sampling may be considered. Large renal calculi bilaterally without evidence of significant obstruction Cirrhosis with portal hypertension Lymphadenopathy in the portacaval area in the retroperitoneum. 2.0 cm lesion in the right liver is poorly characterized however given cirrhotic changes, HCC is not excluded. Electronically signed by Giorgio Breaux 10-04-2024 6:01 PM
--- NOTE | 2024-10-04 20:25 | XRay Report ---
EXAM: XR chest 1V portable CLINICAL HISTORY: CHF re-eval TECHNIQUE: An X-ray image of the chest is obtained in AP projection. COMPARISON: 08/30/2024 FINDINGS: Pulmonary Parenchyma: Opacification of the left middle and lower lung zones. No pulmonary nodules are identified. No evidence of pleural effusion or pleural thickening. Heart and Mediastinum: Cardiomegaly. No mediastinal widening or masses. No hilar or mediastinal lymphadenopathy. Bony Thorax: Bony thorax appears intact without fractures or deformities. right shoulder replacement. Left marked osteoarthritic changes of the shoulder. Soft Tissues: Soft tissues overlying the chest wall are unremarkable. IMPRESSION: 1. Opacification of the left middle and lower lung zones. effusion and consolidation. New finding 2. Cardiomegaly. Unchanged. Electronically signed by Amandeep Buchanan 10-04-2024 8:24 PM
[2024-10-04] MEDS: guaiFENesin 600 MG TABCR PO SCH (21:29)
[2024-10-04] MEDS: HYDROCORTISONE SOD 50 MG in SYRINGE 0 ML IV SCH (22:50)
[2024-10-05 07:19] LABS: Basophils # (auto) 0.01 K/uL (0.00-0.20); Basophils % (auto) 0.2 %; Eosinophils # (auto) 0.01 K/uL (0.00-0.50); Eosinophils % (auto) 0.2 %; Hematocrit (blood only) 33.5 % (37.0-47.0); Hemoglobin 10.4 g/dl (12.0-16.0); Immature Granulocytes # (auto) 0.09 K/uL (0.01-0.20); Immature Granulocytes % (auto) 1.5 %; Lymphocytes # (auto) 1.21 K/uL (1.20-3.40); Lymphocytes % (auto) 20.8 %; Mean Corpuscular Hemoglobin 28.8 pg (25.0-34.0); Mean Corpuscular Volume 92.8 fL (80.0-100.0); Mean Platelet Volume 10.7 fL (9.4-12.4); Monocytes # (auto) 0.55 K/uL (0.11-0.59); Monocytes % (auto) 9.5 %; Neutrophils # (auto) 3.95 K/uL (1.40-6.50); Neutrophils % (auto) 67.8 %; Platelet Count 140 K/uL (130-400); RDW Coefficient of Variation 16.7 % (11.5-14.5); Red Blood Count 3.61 M/uL (4.20-5.40); White Blood Count 5.82 K/ul (4.8-10.8)
[2024-10-05 07:35] LABS: BUN Creatinine Ratio 43.5 (10-20); Calcium 10.8 mg/dl (8.6-10.3); Creatinine Clr Calc Pharmacy 34.7 ml/min; Potassium 3.9 mmol/L (3.5-5.1)
[2024-10-05 07:44] LABS: INR 1.1 (0.9-1.1)
[2024-10-05 09:46] VITALS: BP 96/62; PULSE 70; RESP 16; TEMP 97.7; O2SAT 95
--- NOTE | 2024-10-05 11:18 | Palliative Care Consultation ---
Date of Consultation October 05, 2024 Assessment & Plan (1) Dyspnea and respiratory abnormalities: (2) AMS (altered mental status): Altered mental status type: somnolence Qualified Code(s): R40.0 - Somnolence (3) Weakness generalized: (4) Discussion about advance care planning held with family member: A 25min ACP telephonic meeting was held with pt daughter Berkley and sister. Dtr states she is presently at her Aunt's home in [facility] and they will be traveling as [facility] later today. We discussed Valorie's changing condition, worsening hallucinations, declining BP, inc resp effort and declining PS. Family are all in agreement for TOP TAPER MACHINE. They do not want anything aggressive or escalating. They do not want labs/poking/prodding anything invasive or uncomfortable. They desire focus on Comfort. Allow PO as tolerated for comfort, allow permissive aspiration She is NPO but i have changed it to allow PO as tolerated for comfort, +permissive aspiration. I have added some Haldol for her hallucinations and recommend a dose now to help reduce the agitation. [place] who was injured (per family this is over 50 years ago) Hallucinations and the agitation the cause are intensifying. I specifically advised family we will see how pt does thru weekend and assess for potential of returning to SNF with hospice added on Tuesday. I advised family she may worsen every day in a steady/acutely progressive way which may lead to not being stable for return to SNF and in that case she would remain here. I have ordered the GIP eval given her inc resp symptoms as part of our TOP TAPER MACHINE protocol. I advised family that care mgt will follow up with them Tuesday after reviewing her status with medical team to determine best option(s) for dispo planning. Family does not have capacity for home with hospice and pt has been at SNF for many years. (5) Palliative care by specialist: Introduced Palliative Medicine and explained our role in patient's care. Patient and/or family were receptive to palliative services for goals of care discussions. Reviewed we are different from hospice, a home health nurse visiting service. Plan As above ACp noted Patient is TOP TAPER MACHINE anticipate survival days to weeks. Thank you for allowing us to participate in the ongoing care of this patient. Please page with any additional concerns. Stephane Christiansen DNP Director, Palliative Medicine History of Present Illness Reason for Consultation: Adv illness, possible TOP TAPER MACHINE Attending Physician: Bhupendra Taylor MD History of Present Illness Vlaorie Riggins is a 79yo female who presented from [facility] with cough and AMS. She is bedbound for years at baseline. Resident of SNF for years. ED eval revealed +Coumadin toxicity and acute kidney injury and CXR showed + LLL infiltrate and left-sided effusion. The right chest was clear. + chronic respiratory failure, +AECOPD Allergies Allergy/AdvReac Type Severity Reaction Status Date / Time cephalexin Allergy Severe HIVES Verified 04/14/24 13:07 strawberry Allergy Severe hives Verified 04/14/24 11:39 soap Allergy Intermediate Rash Verified 10/04/24 16:49 sulfamethoxazole Allergy Mild Rash Verified 12/23/23 10:22 [From Bactrim] trimethoprim [From Bactrim] Allergy Mild Rash Verified 12/23/23 10:22 amoxicillin [From Augmentin] AdvReac Mild Diarrhea, Verified 04/14/24 11:39 nausea clavulanic acid AdvReac Mild Diarrhea, Verified 04/14/24 11:39 [From Augmentin] nausea Home Medications Medication Instructions Recorded Confirmed Type magnesium hydroxide 400 mg/5 mL 30 ml PO DIRECTED PRN 06/12/19 10/03/24 Hi story oral suspension (Milk of Magnesia) Constipation acetaminophen 325 mg tablet 650 mg PO Q6 PRN Pain/fever 12/07/19 10/03/24 History (Tylenol) diclofenac sodium 1 % topical gel 2 g topical QID 09/28/21 10/03/24 History pantoprazole 40 mg tablet,delayed 40 mg PO DAILY 09/28/21 10/03/24 History release polyethylene glycol 3350 17 gram 17 g PO DAILY 09/28/21 10/03/24 History oral powder packet (Miralax) sennosides 8.6 mg-docusate sodium 1 tab-cap PO DAILY 09/28/21 10/03/24 History 50 mg tablet (Senna-S) metoprolol tartrate 25 mg tablet 25 mg PO Q12 #30 tabs 10/05/21 10/03/24 Rx aluminum-mag hydroxide-simethicone 30 ml PO QID PRN 04/04/23 10/03/24 History 400 mg-400 mg-40 mg/5 mL oral susp Heartburn/Gas/Nausea artificial tears(hypromellose) 0.4 1 drp ophthalmic (eye) BID 04/14/24 10/03/24 History % eye drops bisacodyl 10 mg rectal suppository 10 mg ID DAILY PRN Constipation 04/14/24 10/03/24 History (Dulcolax (bisacodyl)) carbamide peroxide 6.5 % ear drops 2 drp otic (ear) QID 04/14/24 10/03/24 History (Debrox) hydrocortisone acetate 25 mg 25 mg ID BID 04/14/24 10/03/24 History rectal suppository ipratropium 0.5 mg-albuterol 3 mg 3 ml NEB QID COPD 04/14/24 10/03/24 History (2.5 mg base)/3 mL nebulization soln levothyroxine 100 mcg tablet 100 mcg PO DAILY 04/14/24 10/03/24 History mineral oil-isopropyl myristat 1 applic topical BID 04/14/24 10/03/24 History lotion warfarin 4 mg tablet 2 mg PO HS 04/14/24 10/03/24 History collagenase clostridium histo. 250 1 applic topical DAILY 10/03/24 10/03/24 History unit/gram topical ointment (Santyl) gabapentin 100 mg capsule 200 mg PO TID 10/03/24 10/03/24 History hydrocortisone 2.5 % topical cream 1 applic topical BID 10/03/24 10/03/24 History ipratropium 0.5 mg-albuterol 3 mg 3 ml inhalation Q2H PRN sob/wheeze 10/03/24 10/03/24 History (2.5 mg base)/3 mL nebulization soln sodium hypochlorite 0.125 % 1 applic topical DAILY 10/03/24 10/03/24 History solution (Dakin's Solution) sodium phosphates 19 gram-7 118 ml ID DAILY PRN Constipation 10/03/24 10/03/24 History gram/118 mL enema (Fleet Enema) spironolactone 25 mg tablet 25 mg PO BID 10/03/24 10/03/24 History Patient History Medical History Cor pulmonale, chronic Sleep apnea Obesity hypoventilation syndrome Limb alert care status On home O2 intermediate resident Mixed incontinence Hx of pneumonia due to Klebsiella pneumoniae RESIGHINI (hard of hearing) Chronic constipation History of cellulitis Cognitive communication deficit Morbid obesity History of COVID-19 Immobility Hearing deficit History of breast cancer Dizziness Heart valve regurgitation Surgical History History of bladder surgery History of mastectomy S/P IVC filter H/O hernia repair H/O Spinal surgery S/P PICC central line placement History of ovarian cystectomy History of repair of hiatal hernia History of breast biopsy Family History Mother , Passed age 62 of [place] Diabetes Coronary heart disease Hypertension Stroke Father , Passed age 68 of accident (fell down steps) No problems noted. Brother Family history of diabetes mellitus Diabetes Brother No problems noted. Sister Slow to wake up after anesthesia twin sister Breast cancer Twin - Left Breast - Lumpectomy/Chemo/RXT Sister No problems noted. Sister No problems noted. Sister No problems noted. Sister No problems noted. Son Sarcoidosis Son No problems noted. Daughter No problems noted. Grandmother (Paternal) Family history of diabetes mellitus Grandmother (Maternal) Family history of diabetes mellitus Mother Family history of diabetes mellitus Social History Smoking Status: Unknown if ever smoked Tobacco Type: Cigarettes Cigarettes Per Day: HX OF SOCIAL CIGARETTE, QUIT 25 YEARS AGO.; Second Hand Exposure: No (unknown); Do You Dip or Chew Tobacco: No; Hx Alcohol Use: No (unknown) Hx Substance Use: No (unknown) Preferred Language: Polish Communication Ability: Impaired Communication Ability Comment: per records Visual Impairment: No Limitations Hearing Ability: Use of Hearing Aid Instrumentation Technologist Required: No Beliefs That Will Affect Care: None marital status: Current Living Situation: Snf Current Living Situation Comment: [facility] 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 How many Children do You have: 3 Feels Safe at Home: Yes caffeine: No Assistive Devices: Wheelchair Review of Systems Review of Systems: Unobtainable due to cognitive status Physical Exam Constitutional: + acute distress, + ill appearing, + alt ered mental status, + physical limitations, + frail appearing and + in distress Eyes: PERRL ENMT: Ears: no hearing impairment Mouth: + muffled voice, + dry oral mucous membranes, + dental caries, + poor dentition and + chipped teeth Neck: normal visual inspection and trachea midline Thyroid: normal thyroid; no thyromegaly and thyroid nontender Respiratory: + labored breathing, + uses accessory mu scles, + cough (bronchitic) and symmetric chest movement; + not able to speak in complete sentence Auscultation: + diminished lung sounds, + crackles (left) and + rhonchi (left) Cardiovascular: Rate/Rhythm: + irregularly irregular Gastrointestinal (Abdomen): normal bowel sounds, soft, nontender, no hepatosplenomegaly Musculoskeletal: gen weakness unable to follow commands Skin: pale, cool Neurologic: awakes to self not alert to place or time: tells me she arrived her [place] a [place] and the [place] won't let her through to come see her. She asks me "can you go get the Major and tell him to give permission for [place] to [place] and see my ?" Results & Data Vital Signs (Past 12 Hours) Vital Signs Temp Pulse Pulse Resp BP Pulse Ox O2 Del Method 10/05/24 07:08 88 18 98 Nasal Cannula 10/05/24 02:59 37.0 C 115 H 18 132/98 96 Nasal Cannula 10/04/24 22:50 36.6 C 72 20 143/89 H 97 Nasal Cannula 10/04/24 21:48 94 H O2 Flow Rate 10/05/24 07:08 2 10/05/24 02:59 2 10/04/24 22:50 2 10/04/24 21:48 Laboratory Results 10/05/24 10/05/24 10/04/24 Range/Units 06:59 00:30 22:39 WBC 5.82 (4.8-10.8) K/ul RBC 3.61 L (4.20-5.40) M/uL Hgb 10.4 L (12.0-16.0) g/dl Hct 33.5 L (37.0-47.0) % MCV 92.8 (80.0-100.0) fL MCH 28.8 (25.0-34.0) pg MCHC 31.0 L (32.0-36.0) g/dL RDW Std Deviation 56.0 H (36.4-46.3) fL RDW Coeff of Tatyana 16.7 H (11.5-14.5) % Plt Count 140 (130-400) K/uL MPV 10.7 (9.4-12.4) fL Immature Gran % (Auto) 1.5 % Neut % (Auto) 67.8 % Lymph % (Auto) 20.8 % Harding % (Auto) 9.5 % Eos % (Auto) 0.2 % Baso % (Auto) 0.2 % Neut # (Auto) 3.95 (1.40-6.50) K/uL Lymph # (Auto) 1.21 (1.20-3.40) K/uL Harding # (Auto) 0.55 (0.11-0.59) K/uL Eos # (Auto) 0.01 (0.00-0.50) K/uL Baso # (Auto) 0.01 (0.00-0.20) K/uL Immature Gran # (Auto) 0.09 (0.01-0.20) K/uL PT 12.0 (9.0-12.0) Seconds INR 1.1 (0.9-1.1) VBG pH (7.36-7.41) VBG pCO2 (38-50) mmHg VBG pO2 mmHg VBG HCO3 mmol/L VBG O2 Saturation % VBG Base Excess mEq/L Sodium 135 L (136-145) mmol/L Potassium 3.9 (3.5-5.1) mmol/L Chloride 99 (98-107) mmol/L Carbon Dioxide 27 (21-32) mmol/L Anion Gap 9 (3-11) BUN 73 H (6-23) mg/dl Creatinine 1.68 H (0.6-1.2) mg/dl Est Cr Clr Drug Dosing 34.7 ml/min eGFR 30.94 BUN/Creatinine Ratio 43.5 H (10-20) Glucose 170 H (70-99(Fasting)) mg/dl Osmolality (280-300) mOsm/kg Lactate 1.8 2.1 H* (0.4-2.0) mmol/L Calcium 10.8 H (8.6-10.3) mg/dl Magnesium (1.7-2.4) mg/dl Total Bilirubin (0.2-1.0) mg/dl AST (13-39) U/L ALT (7-52) U/L Alkaline Phosphatase (34-104) U/L Troponin I High Sens (0-14) pg/ml B-Natriuretic Peptide (0-100) pg/ml Total Protein (6.0-8.3) gm/dl Albumin (3.4-5.0) gm/dl Globulin (2.5-4.0) gm/dl Albumin/Globulin Ratio (0.9-2) Procalcitonin (0-0.5) ng/ml TSH (0.300-4.500) uIu/ml Free T4 (0.61-1.60) ng/dl Free T3 (2.3-4.2) pg/ml Random Cortisol mcg/dl Urine Color Urine Appearance (Clear) Urine pH (4.5-7.5) Ur Specific [place] (1.000-1.030) Urine Protein (Negative) Urine Glucose (UA) (Negative) Urine Ketones (Negative) Urine Blood (Negative) Urine Nitrite (Negative) Urine Bilirubin (Negative) Urine Urobilinogen (Negative) Ur Leukocyte Esterase (Negative) Urine WBC (Auto) (0-5) /hpf Urine RBC (Auto) (0-2) /hpf U Hyaline Cast (Auto) (0-2) /lpf U Epithel Cells (Auto) (0-2) /hpf Urine Bacteria (Auto) (None Seen) Triple Phos Crystals (None Prsent) Nasal Screen MRSA (PCR) (Negative) Stl C. diff Tox B Gene (Neg) Adenovirus (PCR) (NotDetected) B. pertussis DNA (PCR) (NotDetected) B.parapertussis DNA PCR (NotDetected) C. pneumoniae DNA (PCR) (NotDetected) Coronavirus OC43 (PCR) (NotDetected) Coronavirus HKU1 (PCR) (NotDetected) Coronavirus 229E (PCR) (NotDetected) SARS-CoV-2 (PCR) (NotDetected) Coronavirus NL63 (PCR) (NotDetected) Human Metapneumovir PCR (NotDetected) Influenza Type A (PCR) (NotDetected) Influenza Type B (PCR) (NotDetected) M. pneumoniae (PCR) (NotDetected) Parainfluenza 1 (PCR) (NotDetected) Parainfluenza 2 (PCR) (NotDetected) Parainfluenza 3 (PCR) (NotDetected) Parainfluenza 4 (PCR) (NotDetected) RSV (PCR) (NotDetected) Entero/Rhino (PCR) (NotDetected) 10/04/24 10/04/24 10/04/24 Range/Units 21:19 18:22 16:39 WBC (4.8-10.8) K/ul RBC (4.20-5.40) M/uL Hgb (12.0-16.0) g/dl Hct (37.0-47.0) % MCV (80.0-100.0) fL MCH (25.0-34.0) pg MCHC (32.0-36.0) g/dL RDW Std Deviation (36.4-46.3) fL RDW Coeff of Tatyana (11.5-14.5) % Plt Count (130-400) K/uL MPV (9.4-12.4) fL Immature Gran % (Auto) % Neut % (Auto) % Lymph % (Auto) % Harding % (Auto) % Eos % (Auto) % Baso % (Auto) % Neut # (Auto) (1.40-6.50) K/uL Lymph # (Auto) (1.20-3.40) K/uL [place] # (Auto) (0.11-0.59) K/uL Eos # (Auto) (0.00-0.50) K/uL Baso # (Auto) (0.00-0.20) K/uL Immature Gran # (Auto) (0.01-0.20) K/uL PT (9.0-12.0) Seconds INR (0.9-1.1) VBG pH (7.36-7.41) VBG pCO2 (38-50) mmHg VBG pO2 mmHg VBG HCO3 mmol/L VBG O2 Saturation % VBG Base Excess mEq/L Sodium (136-145) mmol/L Potassium (3.5-5.1) mmol/L Chloride (98-107) mmol/L Carbon Dioxide (21-32) mmol/L Anion Gap (3-11) BUN (6-23) mg/dl Creatinine (0.6-1.2) mg/dl Est Cr Clr Drug Dosing ml/min eGFR BUN/Creatinine Ratio (10-20) Glucose (70-99(Fasting)) mg/dl Osmolality (280-300) mOsm/kg Lactate 2.8 H* (0.4-2.0) mmol/L Calcium (8.6-10.3) mg/dl Magnesium (1.7-2.4) mg/dl Total Bilirubin (0.2-1.0) mg/dl AST (13-39) U/L ALT (7-52) U/L Alkaline Phosphatase (34-104) U/L Troponin I High Sens (0-14) pg/ml B-Natriuretic Peptide (0-100) pg/ml Total Protein (6.0-8.3) gm/dl Albumin (3.4-5.0) gm/dl Globulin (2.5-4.0) gm/dl Albumin/Globulin Ratio (0.9-2) Procalcitonin (0-0.5) ng/ml TSH (0.300-4.500) uIu/ml Free T4 (0.61-1.60) ng/dl Free T3 (2.3-4.2) pg/ml Random Cortisol 8.53 mcg/dl Urine Color Urine Appearance (Clear) Urine pH (4.5-7.5) Ur Specific [place] (1.000-1.030) Urine Protein (Negative) Urine Glucose (UA) (Negative) Urine Ketones (Negative) Urine Blood (Negative) Urine Nitrite (Negative) Urine Bilirubin (Negative) Urine Urobilinogen (Negative) Ur Leukocyte Esterase (Negative) Urine WBC (Auto) (0-5) /hpf Urine RBC (Auto) (0-2) /hpf U Hyaline Cast (Auto) (0-2) /lpf U Epithel Cells (Auto) (0-2) /hpf Urine Bacteria (Auto) (None Seen) Triple Phos Crystals (None Prsent) Nasal Screen MRSA (PCR) (Negative) Stl C. diff Tox B Gene Negative Cdiff Gene (Neg) Adenovirus (PCR) (NotDetected) B. pertussis DNA (PCR) (NotDetected) B.parapertussis DNA PCR (NotDetected) C. pneumoniae DNA (PCR) (NotDetected) Coronavirus OC43 (PCR) (NotDetected) Coronavirus HKU1 (PCR) (NotDetected) Coronavirus 229E (PCR) (NotDetected) SARS-CoV-2 (PCR) (NotDetected) Coronavirus NL63 (PCR) (NotDetected) Human Metapneumovir PCR (NotDetected) Influenza Type A (PCR) (NotDetected) Influenza Type B (PCR) (NotDetected) M. pneumoniae (PCR) (NotDetected) Parainfluenza 1 (PCR) (NotDetected) Parainfluenza 2 (PCR) (NotDetected) Parainfluenza 3 (PCR) (NotDetected) Parainfluenza 4 (PCR) (NotDetected) RSV (PCR) (NotDetected) Entero/Rhino (PCR) (NotDetected) 10/04/24 10/04/24 10/03/24 Range/Units 16:26 07:19 22:48 WBC 6.98 (4.8-10.8) K/ul RBC 3.56 L (4.20-5.40) M/uL Hgb 10.5 L (12.0-16.0) g/dl Hct 33.6 L (37.0-47.0) % MCV 94.4 (80.0-100.0) fL MCH 29.5 (25.0-34.0) pg MCHC 31.3 L (32.0-36.0) g/dL RDW Std Deviation 57.0 H (36.4-46.3) fL RDW Coeff of Tatyana 16.6 H (11.5-14.5) % Plt Count 121 L (130-400) K/uL MPV 11.8 (9.4-12.4) fL Immature Gran % (Auto) 0.9 % Neut % (Auto) 59.6 % Lymph % (Auto) 22.9 % Harding % (Auto) 14.0 % Eos % (Auto) 2.3 % Baso % (Auto) 0.3 % Neut # (Auto) 4.16 (1.40-6.50) K/uL Lymph # (Auto) 1.60 (1.20-3.40) K/uL [place]ing # (Auto) 0.98 H (0.11-0.59) K/uL Eos # (Auto) 0.16 (0.00-0.50) K/uL Baso # (Auto) 0.02 (0.00-0.20) K/uL Immature Gran # (Auto) 0.06 (0.01-0.20) K/uL PT 13.5 H (9.0-12.0) Seconds INR 1.3 H (0.9-1.1) VBG pH 7.41 (7.36-7.41) VBG pCO2 40 (38-50) mmHg VBG pO2 37 mmHg VBG HCO3 25 mmol/L VBG O2 Saturation 60.9 % VBG Base Excess 0.7 mEq/L Sodium 137 (136-145) mmol/L Potassium 3.8 (3.5-5.1) mmol/L Chloride 97 L (98-107) mmol/L Carbon Dioxide 31 (21-32) mmol/L Anion Gap 9 (3-11) BUN 83 H (6-23) mg/dl Creatinine 1.78 H (0.6-1.2) mg/dl Est Cr Clr Drug Dosing 32.7 ml/min eGFR 28.87 BUN/Creatinine Ratio 46.6 H (10-20) Glucose 136 H (70-99(Fasting)) mg/dl Osmolality (280-300) mOsm/kg Lactate 3.5 H* (0.4-2.0) mmol/L Calcium 10.7 H (8.6-10.3) mg/dl Magnesium (1.7-2.4) mg/dl Total Bilirubin (0.2-1.0) mg/dl AST (13-39) U/L ALT (7-52) U/L Alkaline Phosphatase (34-104) U/L Troponin I High Sens (0-14) pg/ml B-Natriuretic Peptide (0-100) pg/ml Total Protein (6.0-8.3) gm/dl Albumin (3.4-5.0) gm/dl Globulin (2.5-4.0) gm/dl Albumin/Globulin Ratio (0.9-2) Procalcitonin (0-0.5) ng/ml TSH (0.300-4.500) uIu/ml Free T4 (0.61-1.60) ng/dl Free T3 (2.3-4.2) pg/ml Random Cortisol mcg/dl Urine Color Urine Appearance (Clear) Urine pH (4.5-7.5) Ur Specific [place] (1.000-1.030) Urine Protein (Negative) Urine Glucose (UA) (Negative) Urine Ketones (Negative) Urine Blood (Negative) Urine Nitrite (Negative) Urine Bilirubin (Negative) Urine Urobilinogen (Negative) Ur Leukocyte Esterase (Negative) Urine WBC (Auto) (0-5) /hpf Urine RBC (Auto) (0-2) /hpf U Hyaline Cast (Auto) (0-2) /lpf U Epithel Cells (Auto) (0-2) /hpf Urine Bacteria (Auto) (None Seen) Triple Phos Crystals (None Prsent) Nasal Screen MRSA (PCR) Negative (Negative) Stl C. diff Tox B Gene (Neg) Adenovirus (PCR) (NotDetected) B. pertussis DNA (PCR) (NotDetected) B.parapertussis DNA PCR (NotDetected) C. pneumoniae DNA (PCR) (NotDetected) Coronavirus OC43 (PCR) (NotDetected) Coronavirus HKU1 (PCR) (NotDetected) Coronavirus 229E (PCR) (NotDetected) SARS-CoV-2 (PCR) (NotDetected) Coronavirus NL63 (PCR) (NotDetected) Human Metapneumovir PCR (NotDetected) Influenza Type A (PCR) (NotDetected) Influenza Type B (PCR) (NotDetected) M. pneumoniae (PCR) (NotDetected) Parainfluenza 1 (PCR) (NotDetected) Parainfluenza 2 (PCR) (NotDetected) Parainfluenza 3 (PCR) (NotDetected) Parainfluenza 4 (PCR) (NotDetected) RSV (PCR) (NotDetected) Entero/Rhino (PCR) (NotDetected) 10/03/24 10/03/24 10/03/24 Range/Units 19:24 14:40 14:03 WBC (4.8-10.8) K/ul RBC (4.20-5.40) M/uL Hgb (12.0-16.0) g/dl Hct (37.0-47.0) % MCV (80.0-100.0) fL MCH (25.0-34.0) pg MCHC (32.0-36.0) g/dL RDW Std Deviation (36.4-46.3) fL RDW Coeff of Tatyana (11.5-14.5) % Plt Count (130-400) K/uL MPV (9.4-12.4) fL Immature Gran % (Auto) % Neut % (Auto) % Lymph % (Auto) % [place] % (Auto) % Eos % (Auto) % Baso % (Auto) % Neut # (Auto) (1.40-6.50) K/uL Lymph # (Auto) (1.20-3.40) K/uL [place] # (Auto) (0.11-0.59) K/uL Eos # (Auto) (0.00-0.50) K/uL Baso # (Auto) (0.00-0.20) K/uL Immature Gran # (Auto) (0.01-0.20) K/uL PT (9.0-12.0) Seconds INR (0.9-1.1) VBG pH (7.36-7.41) VBG pCO2 (38-50) mmHg VBG pO2 mmHg VBG HCO3 mmol/L VBG O2 Saturation % VBG Base Excess mEq/L Sodium (136-145) mmol/L Potassium (3.5-5.1) mmol/L Chloride (98-107) mmol/L Carbon Dioxide (21-32) mmol/L Anion Gap (3-11) BUN (6-23) mg/dl Creatinine (0.6-1.2) mg/dl Est Cr Clr Drug Dosing ml/min eGFR BUN/Creatinine Ratio (10-20) Glucose (70-99(Fasting)) mg/dl Osmolality (280-300) mOsm/kg Lactate (0.4-2.0) mmol/L Calcium (8.6-10.3) mg/dl Magnesium (1.7-2.4) mg/dl Total Bilirubin (0.2-1.0) mg/dl AST (13-39) U/L ALT (7-52) U/L Alkaline Phosphatase (34-104) U/L Troponin I High Sens 129.6 H* (0-14) pg/ml B-Natriuretic Peptide 386 H (0-100) pg/ml Total Protein (6.0-8.3) gm/dl Albumin (3.4-5.0) gm/dl Globulin (2.5-4.0) gm/dl Albumin/Globulin Ratio (0.9-2) Procalcitonin (0-0.5) ng/ml TSH (0.300-4.500) uIu/ml Free T4 (0.61-1.60) ng/dl Free T3 (2.3-4.2) pg/ml Random Cortisol mcg/dl Urine Color [place] Urine Appearance Turbid A (Clear) Urine pH 7.5 (4.5-7.5) Ur Specific [place] 1.022 (1.000-1.030) Urine Protein 3+ H (Negative) Urine Glucose (UA) Negative (Negative) Urine Ketones Negative (Negative) Urine Blood 3+ H (Negative) Urine Nitrite Positive A (Negative) Urine Bilirubin 2+ H (Negative) Urine Urobilinogen Positive H (Negative) Ur Leukocyte Esterase 3+ H (Negative) Urine WBC (Auto) 21-50 H (0-5) /hpf Urine RBC (Auto) >20 H (0-2) /hpf U Hyaline Cast (Auto) 3-5 H (0-2) /lpf U Epithel Cells (Auto) 0-2 (0-2) /hpf Urine Bacteria (Auto) 4+ H (None Seen) Triple Phos Crystals Present A (None Prsent) Nasal Screen MRSA (PCR) (Negative) Stl C. diff Tox B Gene (Neg) Adenovirus (PCR) (NotDetected) B. pertussis DNA (PCR) (NotDetected) B.parapertussis DNA PCR (NotDetected) C. pneumoniae DNA (PCR) (NotDetected) Coronavirus OC43 (PCR) (NotDetected) Coronavirus HKU1 (PCR) (NotDetected) Coronavirus 229E (PCR) (NotDetected) SARS-CoV-2 (PCR) (NotDetected) Coronavirus NL63 (PCR) (NotDetected) Human Metapneumovir PCR (NotDetected) Influenza Type A (PCR) (NotDetected) Influenza Type B (PCR) (NotDetected) M. pneumoniae (PCR) (NotDetected) Parainfluenza 1 (PCR) (NotDetected) Parainfluenza 2 (PCR) (NotDetected) Parainfluenza 3 (PCR) (NotDetected) Parainfluenza 4 (PCR) (NotDetected) RSV (PCR) (NotDetected) Entero/Rhino (PCR) (NotDetected) 10/03/24 10/03/24 Range/Units 11:22 11:08 WBC 8.14 (4.8-10.8) K/ul RBC 4.33 (4.20-5.40) M/uL Hgb 12.5 (12.0-16.0) g/dl Hct 41.3 (37.0-47.0) % MCV 95.4 (80.0-100.0) fL MCH 28.9 (25.0-34.0) pg MCHC 30.3 L (32.0-36.0) g/dL RDW Std Deviation 57.9 H (36.4-46.3) fL RDW Coeff of Tatyana 16.7 H (11.5-14.5) % Plt Count 138 (130-400) K/uL MPV 11.2 (9.4-12.4) fL Immature Gran % (Auto) 0.6 % Neut % (Auto) 55.8 % Lymph % (Auto) 27.3 % [place] % (Auto) 13.8 % Eos % (Auto) 2.3 % Baso % (Auto) 0.2 % Neut # (Auto) 4.54 (1.40-6.50) K/uL Lymph # (Auto) 2.22 (1.20-3.40) K/uL [place] # (Auto) 1.12 H (0.11-0.59) K/uL Eos # (Auto) 0.19 (0.00-0.50) K/uL Baso # (Auto) 0.02 (0.00-0.20) K/uL Immature Gran # (Auto) 0.05 (0.01-0.20) K/uL PT 63.6 H (9.0-12.0) Seconds INR 7.0 H* (0.9-1.1) VBG pH (7.36-7.41) VBG pCO2 (38-50) mmHg VBG pO2 mmHg VBG HCO3 mmol/L VBG O2 Saturation % VBG Base Excess mEq/L Sodium 136 (136-145) mmol/L Potassium 4.3 (3.5-5.1) mmol/L Chloride 94 L (98-107) mmol/L Carbon Dioxide 33 H (21-32) mmol/L Anion Gap 9 (3-11) BUN 82 H (6-23) mg/dl Creatinine 1.84 H (0.6-1.2) mg/dl Est Cr Clr Drug Dosing 30.7 ml/min eGFR 27.74 BUN/Creatinine Ratio 44.6 H (10-20) Glucose 146 H (70-99(Fasting)) mg/dl Osmolality 316 H (280-300) mOsm/kg Lactate (0.4-2.0) mmol/L Calcium 11.8 H (8.6-10.3) mg/dl Magnesium 2.7 H (1.7-2.4) mg/dl Total Bilirubin 1.2 H (0.2-1.0) mg/dl AST 8 L (13-39) U/L ALT 7 (7-52) U/L Alkaline Phosphatase 162 H (34-104) U/L Troponin I High Sens 119.5 H* (0-14) pg/ml B-Natriuretic Peptide (0-100) pg/ml Total Protein 5.5 L (6.0-8.3) gm/dl Albumin 3.3 L (3.4-5.0) gm/dl Globulin 2.2 L (2.5-4.0) gm/dl Albumin/Globulin Ratio 1.5 (0.9-2) Procalcitonin 0.71 H (0-0.5) ng/ml TSH 0.863 (0.300-4.500) uIu/ml Free T4 1.87 H (0.61-1.60) ng/dl Free T3 2.62 (2.3-4.2) pg/ml Random Cortisol mcg/dl Urine Color Urine Appearance (Clear) Urine pH (4.5-7.5) Ur Specific [place] (1.000-1.030) Urine Protein (Negative) Urine Glucose (UA) (Negative) Urine Ketones (Negative) Urine Blood (Negative) Urine Nitrite (Negative) Urine Bilirubin (Negative) Urine Urobilinogen (Negative) Ur Leukocyte Esterase (Negative) Urine WBC (Auto) (0-5) /hpf Urine RBC (Auto) (0-2) /hpf U Hyaline Cast (Auto) (0-2) /lpf U Epithel Cells (Auto) (0-2) /hpf Urine Bacteria (Auto) (None Seen) Triple Phos Crystals (None Prsent) Nasal Screen MRSA (PCR) (Negative) Stl C. diff Tox B Gene (Neg) Adenovirus (PCR) Not Detected (NotDetected) B. pertussis DNA (PCR) Not Detected (NotDetected) B.parapertussis DNA PCR Not Detected (NotDetected) C. pneumoniae DNA (PCR) Not Detected (NotDetected) Coronavirus OC43 (PCR) Not Detected (NotDetected) Coronavirus HKU1 (PCR) Not Detected (NotDetected) Coronavirus 229E (PCR) Not Detected (NotDetected) SARS-CoV-2 (PCR) Not Detected (NotDetected) Coronavirus NL63 (PCR) Not Detected (NotDetected) Human Metapneumovir PCR Not Detected (NotDetected) Influenza Type A (PCR) Not Detected (NotDetected) Influenza Type B (PCR) Not Detected (NotDetected) M. pneumoniae (PCR) Not Detected (NotDetected) Parainfluenza 1 (PCR) Not Detected (NotDetected) Parainfluenza 2 (PCR) Not Detected (NotDetected) Parainfluenza 3 (PCR) Not Detected (NotDetected) Parainfluenza 4 (PCR) Not Detected (NotDetected) RSV (PCR) Not Detected (NotDetected) Entero/Rhino (PCR) Not Detected (NotDetected) Diagnostic Findings Chest X-Ray 10/03/24 11:16 XR chest 1V portable CLINICAL HISTORY: weakness COMPARISON STUDY: 04/14/2024 FINDINGS: There is stable prominent cardiomegaly with mild pulmonary vascular congestion. There is increased patchy opacity at the left base with obscuration of the left hemidiaphragm. No pneumothorax. IMPRESSION: 1. Mild CHF. 2. Pneumonia versus atelectasis left lung base. ACT 112: Negative or not required by law. Electronically signed by: Raymond Giron M.D. 10/03/2024 11:[address] 10/03/24 11:21 CT SCAN OF THE BRAIN WITHOUT IV CONTRAST CLINICAL HISTORY: Weakness. Confusion. COMPARISON STUDY: MRI of the brain April 11, 2018. Head CT April 14, 2024. TECHNIQUE: Unenhanced axial CT scan of the brain was performed from the vertex to the skull base. A dose lowering technique was utilized adhering to the principles of ALARA. CT DOSE: 625.8 mGy.cm FINDINGS: Brain parenchyma: No acute intracranial hemorrhage, midline shift or mass effect is present. Gonzales-white matter differentiation is preserved. There are no extra- axial fluid collections. There are no findings to suggest acute dural sinus thrombosis or acute territorial infarct. Left frontal encephalomalacia is unchanged. Atrophy is again noted. White matter hypodensities suggest mild small vessel disease. Ventricles, sulci, cisterns: There is no hydrocephalus. The basal cisterns are patent. Calvarium: There are no calvarial fractures. Stable findings following left- sided craniotomy. Sinuses and mastoids: The visualized paranasal sinuses are clear. The mastoid air cells are well pneumatized. Orbits: The bony orbits are grossly intact. IMPRESSION: No acute intracranial findings. No change in appearance of the brain. ACT 112: Electronically signed by: Dharmesh Booth M.D. 10/03/2024 11:58 AM Chest X-Ray 10/04/24 16:08 EXAM: XR chest 1V portable CLINICAL HISTORY: CHF re-eval TECHNIQUE: An X-ray image of the chest is obtained in AP projection. COMPARISON: 08/30/2024 FINDINGS: Pulmonary Parenchyma: Opacification of the left middle and lower lung zones. No pulmonary nodules are identified. No evidence of pleural effusion or pleural thickening. Heart and Mediastinum: Cardiomegaly. No mediastinal widening or masses. No hilar or mediastinal lymphadenopathy. Bony Thorax: Bony thorax appears intact without fractures or deformities. right shoulder replacement. Left marked osteoarthritic changes of the shoulder. Soft Tissues: Soft tissues overlying the chest wall are unremarkable. IMPRESSION: 1. Opacification of the left middle and lower lung zones. effusion and consolidation. New finding 2. Cardiomegaly. Unchanged. Electronically signed by Amandeep Buchanan 10-04-2024 8:24 PM Abdomen/Pelvis CT 10/04/24 16:09 CT CHEST ABDOMEN and PELVIS WITHOUT CONTRAST INDICATION: SEPSIS TECHNIQUE: CT of chest, abdomen and pelvis was obtained without intravenous contrast. IV CONTRAST: 100 mL of OMNIPAQUE 300 Enteric contrast: Not Given COMPARISON: None FINDINGS: LOWER NECK: 2.0 cm right thyroid lobe nodule. LYMPH NODES: A few small nonenlarged lymph nodes in the mediastinum. No lymphadenopathy by size criteria. CARDIOVASCULAR: Cardiac size is enlarged. Coronary artery and valvular calcifications are noted. No aortic aneurysm. LUNGS: There is moderate quantity of debris in the trachea and the mainstem bronchi bilaterally. There is mucoid impaction of the airway supplying the lower lobes with left greater than right atelectatic changes of the lungs. Superimposed pneumonia may be present as well. There are multiple pulmonary nodular densities measuring up to 5 mm, for example in the right middle lobe (series 4, image 92). Extensive bronchiolitic changes with peribronchial cuffing and tree-in-bud nodular opacities in both lungs, especially involving the upper lobes. PLEURA: There is a small left pleural fluid. There is no pneumothorax. LIVER: No focal lesion identified. Surface nodular contour to the liver. There is a hypodense lesion near the right hepatic dome measuring 2.0 cm. GALLBLADDER/BILIARY: Unremarkable gallbladder. No abnormal biliary dilatation. SPLEEN: Splenomegaly. PANCREAS: Unremarkable. ADRENALS: Nodular thickening with probable adenomas. KIDNEYS: Atrophic kidneys bilaterally. Bilaterally there are nonobstructing large renal calculi. For example in the left kidney pelvis, there is a staghorn calculus measuring up to 3.4 cm. No hydronephrosis PERITONEUM/RETROPERITONEUM. moderate lymphadenopathy of unknown etiology in the retroperitoneum and portacaval areas. No aortic aneurysm. Extensive atherosclerosis with stenoses at the origins of the celiac trunk, SMA, the renal arteries and the KEYUR. There is an IVC filter in place. GASTROINTESTINAL: No obstruction. Surgical sutures are noted over the esophageal hiatus. REPRODUCTIVE: Calcified lesions of the uterus likely representing fibroids. There is air in the vaginal canal. URINARY BLADDER: Underdistended with moderate paravesical inflammation. There is intraluminal air. ABDOMINAL WALL: Moderate anasarca. BONES: No acute findings. There is dysplastic appearance of the right hip joint with shallow acetabular coverage. Chronic deformity of the right femoral head with superolateral translation. There is moderate right hip joint fluid. Right shoulder arthroplasty. Lower lumbar spine laminectomies. IMPRESSION: Evidence of aspiration with moderate quantity of debris in the trachea, the mainstem bronchi bilaterally extending into the lower lobe airways. There are resultant atelectatic changes in left greater than right lung bases. Superimposed pneumonia may be present in the lung bases. Extensive bronchiolitis in the lungs, particular involving the upper lobes. Patchy densities in these areas likely representing pneumonia. Also noted are diffuse groundglass opacification in perihilar distribution. This could represent pulmonary edema or additional alveolar pneumonia. Multiple pulmonary nodular densities measuring up to 5 mm may be infectious/inflammatory in nature given the above clinical context however recommend follow-up with thoracic CT in 3 months to reassess. Inflammatory changes of the urinary bladder may be due to cystitis. Please correlate with urinalysis. Air within the urinary bladder may relate to recent instrumentation. Please clinically correlate with medical history. There is air in the vaginal canal that is not specific. Process as rectovaginal fistula not excluded Chronic deformity of the right hip joint with dysplastic appearance. Moderate right hip joint fluid. If there is concern for septic joint, fluid sampling may be considered. Large renal calculi bilaterally without evidence of significant obstruction Cirrhosis with portal hypertension Lymphadenopathy in the portacaval area in the retroperitoneum. 2.0 cm lesion in the right liver is poorly characterized however given cirrhotic changes, HCC is not excluded. Electronically signed by Giorgio Breaux 10-04-2024 6:[address] 10/04/24 16:17 CT CHEST ABDOMEN and PELVIS WITHOUT CONTRAST INDICATION: SEPSIS TECHNIQUE: CT of chest, abdomen and pelvis was obtained without intravenous contrast. IV CONTRAST: 100 mL of OMNIPAQUE 300 Enteric contrast: Not Given COMPARISON: None FINDINGS: LOWER NECK: 2.0 cm right thyroid lobe nodule. LYMPH NODES: A few small nonenlarged lymph nodes in the mediastinum. No lymphadenopathy by size criteria. CARDIOVASCULAR: Cardiac size is enlarged. Coronary artery and valvular calcifications are noted. No aortic aneurysm. LUNGS: There is moderate quantity of debris in the trachea and the mainstem bronchi bilaterally. There is mucoid impaction of the airway supplying the lower lobes with left greater than right atelectatic changes of the lungs. Superimposed pneumonia may be present as well. There are multiple pulmonary nodular densities measuring up to 5 mm, for example in the right middle lobe (series 4, image 92). Extensive bronchiolitic changes with peribronchial cuffing and tree-in-bud nodular opacities in both lungs, especially involving the upper lobes. PLEURA: There is a small left pleural fluid. There is no pneumothorax. LIVER: No focal lesion identified. Surface nodular contour to the liver. There is a hypodense lesion near the right hepatic dome measuring 2.0 cm. GALLBLADDER/BILIARY: Unremarkable gallbladder. No abnormal biliary dilatation. SPLEEN: Splenomegaly. PANCREAS: Unremarkable. ADRENALS: Nodular thickening with probable adenomas. KIDNEYS: Atrophic kidneys bilaterally. Bilaterally there are nonobstructing large renal calculi. For example in the left kidney pelvis, there is a staghorn calculus measuring up to 3.4 cm. No hydronephrosis PERITONEUM/RETROPERITONEUM. moderate lymphadenopathy of unknown etiology in the retroperitoneum and portacaval areas. No aortic aneurysm. Extensive atherosclerosis with stenoses at the origins of the celiac trunk, SMA, the renal arteries and the KEYUR. There is an IVC filter in place. GASTROINTESTINAL: No obstruction. Surgical sutures are noted over the esophageal hiatus. REPRODUCTIVE: Calcified lesions of the uterus likely representing fibroids. There is air in the vaginal canal. URINARY BLADDER: Underdistended with moderate paravesical inflammation. There is intraluminal air. ABDOMINAL WALL: Moderate anasarca. BONES: No acute findings. There is dysplastic appearance of the right hip joint with shallow acetabular coverage. Chronic deformity of the right femoral head with superolateral translation. There is moderate right hip joint fluid. Right shoulder arthroplasty. Lower lumbar spine laminectomies. IMPRESSION: Evidence of aspiration with moderate quantity of debris in the trachea, the mainstem bronchi bilaterally extending into the lower lobe airways. There are resultant atelectatic changes in left greater than right lung bases. Superimposed pneumonia may be present in the lung bases. Extensive bronchiolitis in the lungs, particular involving the upper lobes. Patchy densities in these areas likely representing pneumonia. Also noted are diffuse groundglass opacification in perihilar distribution. This could represent pulmonary edema or additional alveolar pneumonia. Multiple pulmonary nodular densities measuring up to 5 mm may be infectious/inflammatory in nature given the above clinical context however recommend follow-up with thoracic CT in 3 months to reassess. Inflammatory changes of the urinary bladder may be due to cystitis. Please correlate with urinalysis. Air within the urinary bladder may relate to recent instrumentation. Please clinically correlate with medical history. There is air in the vaginal canal that is not specific. Process as rectovaginal fistula not excluded Chronic deformity of the right hip joint with dysplastic appearance. Moderate right hip joint fluid. If there is concern for septic joint, fluid sampling may be considered. Large renal calculi bilaterally without evidence of significant obstruction Cirrhosis with portal hypertension Lymphadenopathy in the portacaval area in the retroperitoneum. 2.0 cm lesion in the right liver is poorly characterized however given cirrhotic changes, HCC is not excluded. Electronically signed by Giorgio Breaux 10-04-2024 6:01 PM PG Care Time/CCT Total # of Minutes Spent Total Time Spent with Patient: Total time spent is greater than 50% in coordination of care (as documented) at patient's floor/unit and/or counseling patient: I spent 105 minutes overall addressing this case: 15 min in medical data review/discussion with referring provider(s) and/or preparation for the visit 25 min in direct interaction with the patient/exam 25 min in Advance Care Planning/Goals of Care discussions as detailed above in note (must be >16min) 15 min in subsequent review and synthesis of assessment and plan 25 min communicating with other providers regarding the patient's case: Advanced Care Planning 31025 Advanced Care Planning 30 [place] [address] IN/OBS CONSULT LVL 5,80M (25 - SIGNIFICANT, SEPARATELY IDENTIFIABLE ) Patient Type New History Comprehensive Exam Comprehensive Medical Decision Making High Complexity Diagnoses Dyspnea and respiratory abnormalities R06.00; R06.89 AMS (altered mental status) R40.0 Altered mental status type: somnolence Weakness generalized R53.1 Discussion about advance care planning held with family member Z71.0 Palliative care by specialist Z51.5 Additional Codes Advanced Care Planning - 50743 Advanced Care Planning 30 Min: 96407 Advanced Care Planning 30 Min ([id number]) Time Spent (min) 105 Comment [id number], [id number]
[2024-10-05] MEDS: HALOPERIDOL LACTATE 5 MG/ML 1 ML VIAL IV PRN (12:08)
--- NOTE | 2024-10-05 13:18 | Hospitalist Progress Note ---
Date of Service October 05, 2024 Assessment & Plan (1) Pneumonia: Plan: 79-year-old female with a past medical history of cor pulmonale, pulmonary hypertension, HFrEF, morbid obesity, A-fib on warfarin, COPD, spinal stenosis, Raynaud's, hyperlipidemia, hypertension who presented from [facility] where she has been a resident for several years. She had an acute mental status change and confusion, nonproductive cough, and had a markedly elevated INR. On ER evaluation she was found to have left lower lobe pneumonia with left-sided effusion suspected parapneumonic. She does have a history of CHF however mild BNP elevation was suspected to be due to history of cor pulmonale and clinically patient was volume contracted with dry mucous membranes, tachycardia, mild hypotension and no evidence of bilateral effusions or lower extremity edema. She was admitted for pneumonia treatment and further care. Night of admission Alvarez catheter was attempted however this is not able to be passed. Was seen by urology PA overnight and was noted to have excoriations in perineal area with difficulty identifying appropriate anatomy. Purewick was draining appropriately and was not retaining urine and therefore did not have an indication for Alvarez and this was deferred at that time. She continued to have deterioration and extended evaluation showed aspiration with carlos material in the trachea and both mainstem bronchi, although without significant respiratory distress or hypoxia. She had continued deterioration on further review of goals of care bronchoscopy was felt to be high risk and invasive and unlikely to change her underlying comorbidities and long-term outcome. Following continued acute on chronic deterioration goals of care were reviewed with family and palliative care, patient was transition to comfort measures on 10/05 Comfort measures Transitioned to to comfort measures 10/05 GIP eval submitted due to increased respiratory symptoms and acute on chronic deterioration Lab draws/fluids/invasive checks/interventions discontinued Allow for permissive aspiration as tolerated for comfort Haldol on-call for hallucinations/agitation Ativan as needed for anxiety Zofran as needed for nausea Glycopyrrolate as needed for secretions Hydromorphone as needed for pain/respiratory distress Left lower lobe pneumonia, aspiration Permissive aspiration for comfort Labs/fluids/antibiotics discontinued Complicated UTI, Vesicovaginal fistula INHALATION THERAPY AIDE, antibiotics discontinued History of seizure-like activity Ativan if needed for seizure activity Chronic respiratory failure Needs oxygen if needed for comfort. Otherwise hydromorphone available on-call for dyspnea consistent with comfort care orders CKD/GLORIA Downtrending, no further lab checks. Comfort measures Right lower extremity necrotic wound, sacral wound Right lower extremity with area of contained hematoma, necrosis, and erythema No purulence Symptomatic care, pain control consistent with INHALATION THERAPY AIDE. A-fib Asymptomatic. Metoprolol held for hypotension (2) Metabolic encephalopathy: (3) Coumadin toxicity: (4) Chronic respiratory failure: (5) COPD (chronic obstructive pulmonary disease): (6) Chronic atrial fibrillation: Admission and Anticipated Discharge Date Admission Date: October 03, 2024 Subjective Valorie seen at the bedside this morning. She is much more confused than prior evening, is not oriented to place or year. On awakening she is very distressed believes she is in the base is difficult to redirect. She is oriented to name only. Has been seen by both speech and palliative care and further discussions have been had with patient's family regarding her goals of care and progression. Family does not want any escalation of care or further labs and would like to transition to comfort measures. As patient has an acute deterioration this may preclude SNF with hospice, GIP eval is pending and patient will be transitioned to INHALATION THERAPY AIDE. Appreciate palliative care's assistance and recommendations Physical Exam Physical Exam: General: Oriented to name only. Confused. Difficult to redirect. Somewhat distressed believing she is in a base and that there had been a murder this morning. HEENT: Atraumatic, normocephalic. Poor dentition. Vision and hearing grossly intact Pulm: Coarse, left lower quadrant greater than right with rhonchi. Cardiac: Irregularly irregular, soft systolic murmur. Radial pulses intact and symmetrical. Results & Data Results & Data Vital Signs (Past 12 Hours) Vital Signs Temp Pulse Resp BP Pulse Ox O2 Del Method O2 Flow Rate 10/05/24 10:00 Nasal Cannula 10/05/24 09:45 36.5 C 70 16 96/62 L 95 Nasal Cannula 2 10/05/24 07:08 88 18 98 Nasal Cannula 2 10/05/24 02:59 37.0 C 115 H 18 132/98 96 Nasal Cannula 2 PG Care Time/CCT Total # of Minutes Spent Total Time Spent with Patient: Total time spent is greater than 50% in coordination of care (as documented) at patient's floor/unit and/or counseling patient: Coding Level of Care Code 66322 SUB INP/OBS CARE 3/50MIN Diagnoses Pneumonia J18.9 Metabolic encephalopathy G93.41 Coumadin toxicity T45.511A Chronic respiratory failure J96.10 COPD (chronic obstructive pulmonary disease) J44.9 Chronic atrial fibrillation I48.20
[2024-10-05] MEDS ORDERED: ALBUT/IPRATROP 3MG/0.5MG NEB 3 ML VIAL NEB PRN (19:25)
[2024-10-06] MEDS: HYDROmorphone INJ 0.5 MG/0.5 ML SYR IV PRN (09:42)
[2024-10-06] MEDS: LORazepam 2 MG/1 ML VIAL IV PRN (09:42)
--- NOTE | 2024-10-06 13:09 | Hospitalist Progress Note ---
Date of Service October 06, 2024 Assessment & Plan (1) Pneumonia: Plan: 79-year-old female with a past medical history of cor pulmonale, pulmonary hypertension, HFrEF, morbid obesity, A-fib on warfarin, COPD, spinal stenosis, Raynaud's, hyperlipidemia, hypertension who presented from [facility] where she has been a resident for several years. She had an acute mental status change and confusion, nonproductive cough, and had a markedly elevated INR. On ER evaluation she was found to have left lower lobe pneumonia with left-sided effusion suspected parapneumonic. She had aspiration of carlos material into the trachea and both mainstem bronchi without recall of any aspiration event. Endoscopy was offered, patient did not wish to pursue this. On goals of care discussion with palliative care opted to move to comfort measures. Comfort measures Transitioned to to comfort measures 10/05 Lab draws/fluids/invasive checks/interventions discontinued Allow for permissive aspiration as tolerated for comfort Haldol on-call for hallucinations/agitation Ativan as needed for anxiety Zofran as needed for nausea Glycopyrrolate as needed for secretions Hydromorphone as needed for pain/respiratory distress Initially was not requiring analgesic medications however pain did worsen 10/06 and was given additional doses of full IV pain control and additional tx for agitation/delirium Disposition planning: Family is with reservations about returning to [facility] and would like to pursue alternative options. They preferred for her to remain in the hospital while [employer] however as she is not hemodynamically unstable and has a prognosis of days to even weeks discussed that post hospital arrangements need to be pursued. Assured that where she did have an event if she were to clinically decline, be unstable for transfer, or have uncontrolled symptoms then she would not be appropriate for transfer at that time and she would remain inpatient. She is at high risk of a sudden respiratory event given frailty and progressive aspiration however she has been tolerating her meals so far with no respiratory distress and minimal to no oxygen requirement. On afternoon reassessment her nursing staff has had controlled pain requiring 2 doses of IV morphine. Discussed with case management 10/06. Plan is to follow over the weekend pain control and progression over the weekend. If symptoms can be adequately managed with oral agents then could potentially progress to outpatient hospice on Tuesday. If she continues to require IV analgesics and medications for agitation/anxiety then will reevaluate for GIP at that time. Left lower lobe pneumonia, aspiration Permissive aspiration for comfort Labs/fluids/antibiotics discontinued Complicated UTI, Vesicovaginal fistula [employer] HELPER, antibiotics discontinued History of seizure-like activity Ativan if needed for seizure activity Chronic respiratory failure Needs oxygen if needed for comfort. Otherwise hydromorphone available on-call for dyspnea consistent with comfort care orders CKD/GLORIA Downtrending, no further lab checks. Comfort measures Right lower extremity necrotic wound, sacral wound Right lower extremity with area of contained hematoma, necrosis, and erythema No purulence Symptomatic care, pain control consistent with [employer] HELPER. A-fib Asymptomatic. Metoprolol held for hypotension (2) Metabolic encephalopathy: (3) Coumadin toxicity: (4) Chronic respiratory failure: (5) COPD (chronic obstructive pulmonary disease): (6) Chronic atrial fibrillation: Admission and Anticipated Discharge Date Admission Date: October 03, 2024 Subjective Jigna is seen at the bedside. Nondistressed. Reports that she did not sleep well. No fever chills or sweats. Does continue have some pain in her groin and back. On afternoon reassessment patient again intermittently confused and agitated. Did have worsened pain in her back and groin requiring IV analgesic treatment. Physical Exam Physical Exam: General: Oriented to name only. Nondistressed. HEENT: Atraumatic, normocephalic. Poor dentition. Vision and hearing grossly intact Pulm: Remains coarse, left lower quadrant greater than right with rhonchi. : Alvarez in place draining scant amount of dark urine Results & Data Results & Data Vital Signs (Past 12 Hours) Vital Signs O2 Del Method O2 Flow Rate 10/06/24 08:30 Oxymask 2 PG Care Time/CCT Total # of Minutes Spent Total Time Spent with Patient: Total time spent is greater than 50% in coordination of care (as documented) at patient's floor/unit and/or counseling patient: Coding Level of Care Code 12462 SUB INP/OBS CARE 3/50MIN Diagnoses Pneumonia J18.9 Metabolic encephalopathy G93.41 Coumadin toxicity T45.511A Chronic respiratory failure J96.10 COPD (chronic obstructive pulmonary disease) J44.9 Chronic atrial fibrillation I48.20
[2024-10-06] MEDS ORDERED: oxyCODONE HCL IR 5 MG TAB (IMMEDIATE RELEASE) PO PRN (17:17)
[2024-10-07] MEDS: GLYCOPYRROLATE 0.2 MG/ML VIAL IV PRN ×2 (06:28→20:39)
--- NOTE | 2024-10-07 14:36 | Hospitalist Progress Note ---
Date of Service October 07, 2024 Assessment & Plan (1) Pneumonia: Plan: 79-year-old female with a past medical history of cor pulmonale, pulmonary hypertension, HFrEF, morbid obesity, A-fib on warfarin, COPD, spinal stenosis, Raynaud's, hyperlipidemia, hypertension who presented from [facility] where she has been a resident for several years. She had an acute mental status change and confusion, nonproductive cough, and had a markedly elevated INR. On ER evaluation she was found to have left lower lobe pneumonia with left-sided effusion suspected parapneumonic. She had aspiration of carlos material into the trachea and both mainstem bronchi without recall of any aspiration event. Endoscopy was offered, patient did not wish to pursue this. On goals of care discussion with palliative care opted to move to comfort measures. Comfort measures Transitioned to to comfort measures 10/05 Lab draws/fluids/invasive checks/interventions discontinued Allow for permissive aspiration as tolerated for comfort Haldol on-call for hallucinations/agitation Ativan as needed for anxiety Zofran as needed for nausea Glycopyrrolate as needed for secretions Hydromorphone as needed for pain/respiratory distress Initially was not requiring analgesic medications however pain did worsen 10/06 and was given additional doses of full IV pain control and additional tx for agitation/delirium Disposition planning: Will continue to follow over the weekend. Initially was declined to [facility] and d/w CM for transition to outpatient hospice however she has continued to require IV analgesics, has been with acute confusion and hallucinations for which she Haldol has been added, and with ongoing deterioration and concerned that she is not stable for return to SNF. 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 Otherwise hydromorphone available on-call for dyspnea consistent with comfort care orders CKD/GLORIA Downtrending, no further lab checks. Comfort measures Right lower extremity necrotic wound, sacral wound Right lower extremity with area of contained hematoma, necrosis, and erythema No purulence Symptomatic care, pain control consistent with CLERK FUNERAL DETAIL. A-fib Asymptomatic. Metoprolol held for hypotension (2) Metabolic encephalopathy: (3) Coumadin toxicity: (4) Chronic respiratory failure: (5) COPD (chronic obstructive pulmonary disease): (6) Chronic atrial fibrillation: Admission and Anticipated Discharge Date Admission Date: October 03, 2024 Subjective Sleeping comfortably. Did require additional pain control for back/sacral discomfort, and Ativan for anxiety. Subsequently the sleeping comfortably and nondistressed at bedside. Family updated at bedside. Physical Exam Physical Exam: General: Sleeping comfortably at time of bedside visit. HEENT: Atraumatic, normocephalic. Pulm: Metrical chest rise. Slightly reduced air movement. : Alvarez in place draining dark yellow urine. Results & Data Results & Data Vital Signs (Past 12 Hours) Vital Signs O2 Del Method O2 Flow Rate 10/07/24 07:15 Oxymask 2 PG Care Time/CCT Total # of Minutes Spent Total Time Spent with Patient: Total time spent is greater than 50% in coordination of care (as documented) at patient's floor/unit and/or counseling patient: Coding Level of Care Code 88988 SUB INP/OBS CARE 2/35MIN Diagnoses Pneumonia J18.9 Metabolic encephalopathy G93.41 Coumadin toxicity T45.511A Chronic respiratory failure J96.10 COPD (chronic obstructive pulmonary disease) J44.9 Chronic atrial fibrillation I48.20
--- NOTE | 2024-10-08 11:18 | Palliative Care Progress Note ---
Date of Service October 08, 2024 Assessment & Plan (1) Palliative care by specialist: Plan: Palliative care will continue to follow for ongoing EOL pt care and family support. (2) Comfort measures only status: Plan: Pt transitioned to Comfort directed care on 10/05/24, currently requiring only occasional PRN medication for comfort and does not meet GIP criteria. Continue comfort directed care per orders, may require SNF placement for ongoing hospice care. (3) Need for comfort care: Plan: EOL Symptom manamgement: Pain/dyspnea/tachypnea dilaudid 0.5mg IVP PRN [id number] Consider titratable dilaudid drip if pt requires >3 PRN doses in under two consecutive hours. Nausea/vomitting zofran 4mg IVP q4h PRN Agitation ativan 0.5mg IVP q4h PRN Hyperactive delirium haldol 5mg IVP q6h PRN Secretions - if repositioning not effective robinul 0.4mg IV q4h PRN atropine SL 3 drops Q1h PRN Nursing care: Discontinue all medications not directed towards comfort. Detether pt from IV tubing, monitor cables, and check vitals once per shift. Please continue HFNC and titrate down as able for patient comfort. Use medications above PRN for dyspnea/tachypnea and do not increase oxygen once titrated down. Assess q1h for pain/dyspnea and treat accordingly. (4) Encounter for end of life education, guidance and counseling: Plan: Anticipatory guidance offered. Discussed changes pt may move through in the dying process including but not limited to sleeping more, disorientation when awake, restlessness, diminished senses/inability to respond to stimulus although ability to be aware of them remains intact longer, and changes in body temperatures, skin changes/mottling/cyanosis, respiratory pattern changes, and oral secretions. Family verbalized understanding. The goal is to assure a peaceful . Discussed EOL rally. When a person facing the end of life rallies, they seem to become "more stable" - may want to talk or even begin taking PO; this phenomenon is usually seen as a sudden burst of energy before . This period of perking up can be accompanied by such a notable change in mental clarity that is often referred to as terminal lucidity. This change in cognition and behavior goes against everything families learn about the physical signs that the end of life is near. It is important to note that evidence-based data is elusive, if nonexistent. Theories support that it may be a search for a final, strong connection. Also, as organs shut down, they can release a steroid like compound that briefly rouses the body - in the specific case of brain tumors, swelling occurs in the confined space of the skull. The edema shrinks as EOL care patients are weaned off food and drink, waking up the brain a bit. Families and caregivers may grasp at what seems to be a turnaround in a loved ones health, however, the EOL Rally is a hallmark pre- sign. It is not uncommon for patients to show improvement before : they may want to talk while others may become restless or act as if they need to start preparing for a trip. Some patients will become more relaxed yet remain tuned in to what is going on around them, others will show signs of physical stability when, seconds before, they seemed on the verge of letting go. A rally can last for a few moments or even days. Short or long, these temporary improvements can have a profound effect on loved ones who are keeping osborn. Like a moment of clarity for someone who has dementia, a rally is one last opportunity to connect with a loved one. Each persons experience is unique and impossible to predict with total accuracy. Life is full of questions, and some of them simply are not meant to be answered. 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 Pt is unresponsive to verbal and gentle tactile stimuli, did not attempt to awaken in concert with comfort directed care. She appears comfortable, pale skin, e xtremities cool to touch, respiratory effort normal, rate 18/min with occasional periods of apnea. Large family presence at bedside. Review of Systems Review of Systems: Unobtainable due to cognitive status Physical Exam Constitutional: well developed, + ill appearing, + morbidly obese and comfortable Eyes: PERRL, conjunctivae normal, anicteric sclerae ENMT: external ear and nose normal, oropharynx normal Respiratory: normal respiratory effort; no respiratory distress and does not use accessory muscles Cardiovascular: RRR, no murmur, no edema Gastrointestinal (Abdomen): normal bowel sounds, soft, nontender, no hepatosplenomegaly Neurologic: unresponsive to verbal and gentle tactile stimuli, did not attempt to awaken in concert with comfort directed care Results & Data Vital Signs (Past 12 Hours) Vital Signs Temp 36.5 C 10/05/24 09:45 Pulse 70 10/05/24 09:45 Resp 16 10/05/24 09:45 BP 96/62 L 10/05/24 09:45 Pulse Ox 95 10/05/24 09:45 O2 Del Method Room Air 10/07/24 20:45 O2 Flow Rate 2 10/07/24 07:15 Intake & Output 10/07/24 10/08/24 10/08/24 18:59 06:59 18:59 Output Total 300 / 750 450 / 750 Balance -300 / -750 -450 / -750 Output: Urine Amount (Catheter) 300 / 750 450 / 750 Alvarez/Indwelling 300 / 750 450 / 750 Laboratory Results No further labs or diagnostics in concert with comfort directed care. Diagnostic Findings No further labs or diagnostics in concert with comfort directed care. Medications Administered Current Inpatient Medications Albuterol (Albut/Ipratrop 3mg/0.5mg Neb 3 Ml Vial) 3 ml NEB Q2H PRN; Protocol PRN Reason: wheeze Stop: 11/04/24 19:24 Artificial Tears (Artificial Tears) 1 drops OPB BID FIDEL Stop: 11/02/24 20:59 Last Admin: 10/08/24 09:21 Dose: Not Given Glycopyrrolate (Glycopyrrolate 0.2 Mg/Ml Vial) 0.4 mg IV Q2H PRN PRN Reason: Rattling Secretions or Pulm Congestion Stop: 11/04/24 11:29 Last Admin: 10/08/24 05:55 Dose: 0.4 mg Haloperidol Lactate (Haloperidol Lactate 5 Mg/Ml 1 Ml Vial) 1 mg IV Q4H PRN PRN Reason: hallucinations, agitation Stop: 11/04/24 11:39 Last Admin: 10/07/24 22:29 Dose: 1 mg Hydromorphone HCl (Hydromorphone Inj 0.5 Mg/0.5 Ml Syr) 0.5 mg IV Q30M PRN PRN Reason: Pain or Respiratory Distress Stop: 10/19/24 11:29 Last Admin: 10/08/24 09:12 Dose: 0.5 mg Lorazepam (Lorazepam 2 Mg/1 Ml Vial) 0.5 mg IV Q4H PRN PRN Reason: Anxiety/Agitation Stop: 11/04/24 11:29 Last Admin: 10/08/24 07:32 Dose: 0.5 mg Ondansetron HCl (Ondansetron Inj 2 Mg/Ml 2 Ml Vial) 4 mg IV Q6H PRN PRN Reason: Nausea And Vomiting Stop: 11/02/24 15:47 Oxycodone HCl (Oxycodone Hcl Ir 5 Mg Tab (Immediate Release)) 5 mg PO Q6H PRN PRN Reason: Pain Stop: 10/20/24 17:16 PG Care Time/CCT Total # of Minutes Spent Total Time Spent with Patient: Total time spent is greater than 50% in coordination of care (as documented) at patient's floor/unit and/or counseling patient: Advanced Care Planning 50264 Advanced Care Planning 30 Min [place] [address] SUB INP/OBS CARE 07/07MIN Patient Type Established Medical Decision Making Low Complexity Diagnoses Palliative care by specialist Z51.5 Comfort measures only status Z51.5 Need for comfort care Encounter for end of life education, guidance and counseling Additional Codes Advanced Care Planning - 87354 Advanced Care Planning 30 Min: 49223 Advanced Care Planning 30 Min ([id number])
--- NOTE | 2024-10-08 13:21 | Hospitalist Progress Note ---
Date of Service October 08, 2024 Assessment & Plan (1) Pneumonia: Plan: 79-year-old female with a past medical history of cor pulmonale, pulmonary hypertension, HFrEF, morbid obesity, A-fib on warfarin, COPD, spinal stenosis, Raynaud's, hyperlipidemia, hypertension who presented from [facility] where she has been a resident for several years. She had an acute mental status change and confusion, nonproductive cough, and had a markedly elevated INR. On ER evaluation she was found to have left lower lobe pneumonia with left-sided effusion suspected parapneumonic. She had aspiration of carlos material into the trachea and both mainstem bronchi without recall of any aspiration event. Endoscopy was offered, patient did not wish to pursue this. On goals of care discussion with palliative care opted to move to comfort measures. Comfort measures Transitioned to to comfort measures 10/05 Overnight per family had intermittent periods of apnea, does awaken periodically and appears in discomfort in her abdomen and sometimes in her shoulder however has adequate control with IV hydromorphone. They feel this works well when it is given, but does not last very long. Family encouraged and comfortable reaching out to providers if they feel she is having any distress and feel comfortable with the frequency of check-in's with nursing staff. Expressed appreciation of care. 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 On room air, hydromorphone available on-call for dyspnea CKD/GLORIA Downtrending, no further lab checks. Comfort measures Right lower extremity necrotic wound, sacral wound Right lower extremity with area of contained hematoma, necrosis, and erythema No purulence Symptomatic care, pain control as ordered, rotate and offloading as tolerate (2) Metabolic encephalopathy: (3) Coumadin toxicity: (4) Chronic respiratory failure: (5) COPD (chronic obstructive pulmonary disease): (6) Chronic atrial fibrillation: Admission and Anticipated Discharge Date Admission Date: October 03, 2024 Subjective Seen at the bedside. Intermittent agitation overnight and family reports patient does periodically wake in and pain from both her back and occasionally her shoulder. Has received some Ativan and Haldol for anxiety separate from this per nursing staff, clear if it does seem to work for the pain although family notes they are concerned that this wears off fairly quickly. Frequent check-in's versus transition to morphine were discussed, selecting staff and wi ll continue frequent check-in's at this time. Discussed with nursing, is having periods of apnea. This is sometimes associated with her pain medications but per family thinks she may have had some periods of apnea separate from this. Urine output was decreased 10/07, approximately 750 cc output last 24 hours. At bedside patient is resting comfortably, nondistressed. Physical Exam Physical Exam: General: Sleeping comfortably at time of bedside visit. HEENT: Atraumatic, normocephalic. Pulm: Managed air movement, symmetrical chest rise. No distress. : Alvarez in place PG Care Time/CCT Total # of Minutes Spent Total Time Spent with Patient: Total time spent is greater than 50% in coordination of care (as documented) at patient's floor/unit and/or counseling patient: Coding Level of Care Code 42937 SUB INP/OBS CARE MIN Diagnoses Pneumonia J18.9 Metabolic encephalopathy G93.41 Coumadin toxicity T45.511A Chronic respiratory failure J96.10 COPD (chronic obstructive pulmonary disease) J44.9 Chronic atrial fibrillation I48.20
--- NOTE | 2024-10-09 10:54 | Palliative Care Progress Note ---
Date of Service October 09, 2024 Assessment & Plan (1) Dyspnea and respiratory abnormalities: Plan: 11 doses Dilaudid in 24 hr without relief, total 5.5mg in 24hr D/w nursing, infusion started at 0.3mg per hour with 0.5mg Q15min prn bolus through bag by nursing if needed PRN IV dose d/c once dilaudid drip is started (2) Weakness generalized: (3) Palliative care by specialist: (4) Need for comfort care: Plan As above Improved comfort after few hours with infusion of Dilaudid only one bolus dose required in this time Thank you for allowing us to participate in the ongoing care of this patient. Please page with any additional concerns. 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 grimacing at times, resp rate variable secretions increased, robinul in use Review of Systems Review of Systems: Unobtainable due to reduced consciousness Physical Exam Physical Exam: unresponsive grimacing, furrowed brow agitated resp effort increased with use of accessory muscles tachy +belly breathing +clark skin pale Results & Data Vital Signs (Past 12 Hours) Vital Signs O2 Del Method 10/09/24 07:29 Room Air PG Care Time/CCT Total # of Minutes Spent Total Time Spent: 55 Total Time Spent with Patient: Total time spent is greater than 50% in coordination of care (as documented) at patient's floor/unit and/or counseling patient: Coding [place] [address] SUB INP/OBS CARE 3/50MIN Patient Type Established History Comprehensive Exam Comprehensive Medical Decision Making High Complexity Diagnoses Dyspnea and respiratory abnormalities R06.00; R06.89 Weakness generalized R53.1 Palliative care by specialist Z51.5 Need for comfort care Comment
[2024-10-09] MEDS ORDERED: STAT IV Infusion **Titration per Protocol STA (11:23)
--- NOTE | 2024-10-09 11:43 | Hospitalist Progress Note ---
Date of Service October 09, 2024 Assessment & Plan (1) Pneumonia: Plan: 79-year-old female with a past medical history of cor pulmonale, pulmonary hypertension, HFrEF, morbid obesity, A-fib on warfarin, COPD, spinal stenosis, Raynaud's, hyperlipidemia, hypertension who presented from [facility] where she has been a resident for several years. She had an acute mental status change and confusion, nonproductive cough, and had a markedly elevated INR. On ER evaluation she was found to have left lower lobe pneumonia with left-sided effusion suspected parapneumonic. She had aspiration of carlos material into the trachea and both mainstem bronchi without recall of any aspiration event. Endoscopy was offered, patient did not wish to pursue this. On goals of care discussion with palliative care opted to move to comfort measures. Comfort measures Transitioned to to comfort measures 10/05 Haldol on-call for hallucinations/agitation Ativan as needed for anxiety Zofran as needed for nausea Glycopyrrolate as needed for secretions Hydromorphone continued as needed for pain/dyspnea. Requiring increasing doses of IV pain control for pain/distress overnight. Due to ongoing pain/distress has been started on Dilaudid gtt. 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 On room air, hydromorphone available on-call for dyspnea CKD/GLORIA Downtrending, no further lab checks. Comfort measures Right lower extremity necrotic wound, sacral wound Right lower extremity with area of contained hematoma, necrosis, and erythema No purulence Symptomatic care, pain control as ordered (2) Metabolic encephalopathy: (3) Coumadin toxicity: (4) Chronic respiratory failure: (5) COPD (chronic obstructive pulmonary disease): (6) Chronic atrial fibrillation: Admission and Anticipated Discharge Date Admission Date: October 03, 2024 Subjective Seen the bedside today. Increased pain and agitation overnight per family. Responds well to Dilaudid however needing this more frequently. Continues to seem to have pain in her back and shoulders. Secretions seem to be increased this morning, since around 4:00 per family. Some rattle in the chest. Pending GIP reevaluation Family at bedside reports they do not feel comfortable with transition out of the hospital environment, especially given her clinical deterioration over the last day UOP reduced, about 350 per last 24 hours Physical Exam Physical Exam: General: Somnolent/lethargic. Pulm: Diminished air movement, symmetrical chest rise. Coarse secretions : Alvarez in place Results & Data Results & Data Vital Signs (Past 12 Hours) Vital Signs O2 Del Method 10/09/24 07:29 Room Air PG Care Time/CCT Total # of Minutes Spent Total Time Spent with Patient: Total time spent is greater than 50% in coordination of care (as documented) at patient's floor/unit and/or counseling patient: Coding Diagnoses Pneumonia J18.9 Metabolic encephalopathy G93.41 Coumadin toxicity T45.511A Chronic respiratory failure J96.10 COPD (chronic obstructive pulmonary disease) J44.9 Chronic atrial fibrillation I48.20
[2024-10-09] MEDS: HYDROmorphone 100 MG/100 ML BAG IV SCH (11:58)
[2024-10-09] MEDS: HYDROmorphone BOLUS from BAG IV PRN (13:34)
--- NOTE | 2024-10-09 14:28 | Death Pronouncement Note ---
Date of Service October 09, 2024 Pronouncement Note Admission Date October 03, 2024 Preliminary Cause of (1) Aspiration pneumonia: (2) Aspiration into airway: Contributing Factors Pulmonary Hypertension, Cor Pulmonale, HFrEF, COPD Additional Data Confirmation of : no pulse, no respirations, no heart sounds and pupils fixed and dilated Pronouncement Performed By: Attending Physician Family: at bedside Attending physician: Bhupendra Taylor MD Was code activated?: No Autopsy requested?: No Coding Level of Care Code 74056 INP/OBS DISCH >30 MIN Diagnoses Aspiration pneumonia J69.0 Aspiration into airway T17.908A
--- NOTE | 2024-10-09 14:35 | Discharge Summary ---
Discharge Summary Date of Service October 09, 2024 Principal Dx & Hospital Course #1 = Principal Diagnosis (1) Aspiration pneumonia: 79-year-old female with a past medical history of cor pulmonale, pulmonary hypertension, HFrEF, morbid obesity, A-fib on warfarin, COPD, spinal stenosis, Raynaud's, hyperlipidemia, hypertension who presented from [facility] where she has been a resident for several years. She had an acute mental status change and confusion, nonproductive cough, and had a markedly elevated INR. On ER evaluation she was found to have left lower lobe pneumonia with left-sided effusion suspected parapneumonic. She had aspiration of carlos material into the trachea and both mainstem bronchi without recall of any aspiration event. Endoscopy was offered, patient did not wish to pursue this. On goals of care discussion with palliative care opted to move to comfort measures. She passed on 10/09. Notified by nursing staff that patient shortly after 2 PM. Provider promptly to bedside. Pronounced in exam patient's pupils were fixed and dilated, on auscultation there was no cardiac activity or breath sounds, no radial pulse was present, no pupillary reflex to gauze was present in the left eye. Patient pronounced at 1406. Family present at bedside during exam. Autopsy offered, family declined. Would like to use walkers home in [facility]. Comfort measures Transitioned to to comfort measures 10/05 Haldol on-call for hallucinations/agitation Ativan as needed for anxiety Zofran as needed for nausea Glycopyrrolate as needed for secretions Hydromorphone continued as needed for pain/dyspnea. Requiring increasing doses of IV pain control for pain/distress overnight. Due to ongoing pain/distress hadbeen started on Dilaudid gtt. appreciate palliative care recommendations and assistance Comorbidities: Left lower lobe pneumonia, aspiration Complicated UTI, Vesicovaginal fistula History of seizure-like activity Chronic respiratory failure CKD/GLORIA Right lower extremity necrotic wound, sacral wound COPD (chronic obstructive pulmonary disease): Chronic atrial fibrillation: (2) Aspiration into airway: Admission HPI Per Admitting Provider 79-year-old white female who has been bedfast at [facility] for several years. Staff noticed a change in her mental status and she has a nonproductive cough. She was sent to the ED for evaluation. She was found to have Coumadin toxicity and acute kidney injury. Chest x-ray reveals left lower lobe infiltrate and left-sided effusion. Right side is clear. She has chronic respiratory failure and underlying COPD and is 93% on her usual 2 L of oxygen per nasal cannula. I doubt if she has overt CHF but BNP is pending and likely to be elevated due to her chronic cor pulmonale. Blood and urine cultures have been requested. She has been started on intravenous Zosyn. Her most recent urine culture in June of this year grew Citrobacter and Enterococcus faecalis. Alvarez catheter has been placed while in the ED and IV fluids started. She has a chronic sacral decubitus and wound care nursing has also been consulted. She is a DNR patient. Discharge Exam Pupils fixed and dilated No auscultated bowel cardiac activity No auscultated bowel breath sounds No radial pulse present No corneal reflex to soft gauze Discharge Plan Discharge Items Patient Disposition: Reason For Visit: ENCEPHALOPATHY, SUSPECTED PNA Follow-up/Referrals: [facility] [Primary Care Provider] - Medications and DC Order Prescriptions: No Action magnesium hydroxide [Milk of Magnesia] 400 mg/5 mL Suspension 30 ml PO DIRECTED PRN (Reason: Constipation) Rx Instructions: NO BM FOR 3 DAYS, administer on 7-3 shift acetaminophen [Tylenol] 325 mg Tablet 650 mg PO Q6 MDD 3g/24hr PRN (Reason: Pain/fever) polyethylene glycol 3350 [Miralax] 17 gram Powder In Packet 17 g PO DAILY sennosides-docusate sodium [Senna-S] 8.6-50 mg Tablet 1 tab-cap PO DAILY pantoprazole 40 mg tablet,delayed release (DR/EC) 40 mg PO DAILY Rx Instructions: Start 09/25/21 for 2 weeks & then reduce to dailyy diclofenac sodium 1 % gel 2 g TOPICAL QID Rx Instructions: FOR SHOULDER/WRIST PAIN metoprolol tartrate 25 mg Tablet 25 mg PO Q12 Qty: 30 0RF alum-mag hydroxide-simeth 400-400-40 mg/5 mL Suspension 30 ml PO QID PRN (Reason: Heartburn/Gas/Nausea) warfarin 4 mg tablet 2 mg PO HS hydrocortisone acetate 25 mg Suppository 25 mg MS BID levothyroxine 100 mcg tablet 100 mcg PO DAILY bisacodyl [Dulcolax (bisacodyl)] 10 mg Suppository 10 mg MS DAILY PRN (Reason: Constipation) Rx Instructions: Give on day 3 on 3-11 shift if no BM after MOM artificial tears(hypromellose) 0.4 % Drops 1 drp OPHTHALMIC (EYE) BID Debrox 6.5 % Drops 2 drp otic (ear) QID Rx Instructions: start date 10/04/24 x5days mineral oil-isopropyl myristat Lotion 1 applic TOPICAL BID Rx Instructions: Apply to BLE topically BID for wound care ipratropium-albuterol 0.5 mg-3 mg(2.5 mg base)/3 mL solution for nebulization 3 ml NEB QID Rx Instructions: May also administer every 2 hours if needed ipratropium-albuterol 0.5 mg-3 mg(2.5 mg base)/3 mL solution for nebulization 3 ml inhalation Q2H PRN (Reason: sob/wheeze) spironolactone 25 mg tablet 25 mg PO BID Fleet Enema 19-7 gram/118 mL Enema 118 ml MS DAILY PRN (Reason: Constipation) hydrocortisone 2.5 % cream 1 applic topical BID Santyl 250 unit/gram ointment 1 applic TOPICAL DAILY Dakin's Solution 0.125 % Solution 1 applic TOPICAL DAILY gabapentin 100 mg capsule 200 mg PO TID Admission Data Admit Date/Time: 10/03/24 13:09 Attending Provider: Bhupendra Taylor Admit Provider: Dane Valiente Primary Care Provider: [facility] Other Providers: Dane Valiente; Migdalia Faith; Valorie Christiansen; [facility] Hospital Stay Data Consultations 10/03/24 12:31 ED Decision to Admit Stat 10/04/24 19:01 Consult Palliative Care Routine Diagnostic Imagining Performed 10/03/24 11:21 CT head/brain wo con Stat 10/04/24 16:09 CT Abd and Pelvis [CT abd pelvis wo con] Stat 10/04/24 16:17 CT chest diagnostic wo con Stat Total Time Total Time Spent Total Time Spent (In Minutes): Time spend day of discharge 60 minutes including direct patient care, documentation, review of labs and images, and coordination of care. Coding Level of Care Code 33281 INP/OBS DISCH >30 MIN Diagnoses Aspiration pneumonia J69.0 Aspiration into airway T17.908A
== END 2024-10-09 15:26 | disposition expired | DRG 177 ==
LOC: SUATTDRO → ED 10:49 → SUATTDRO 13:09 → EDINP 13:09 → 2N 20:24 → 2S 10-04 20:38 → 3W 10-05 17:52